=== PATIENT | female | born 1965 | race Caucasian/White ===

== ENCOUNTER 2016-11-23 12:01 | Inpatient (IN) | payer OTHER ==
[~2016-11-23] VITALS: Ht 165.1 cm; Wt 82.6 kg
[~2016-11-23 12:01] MED LIST: ADALAT CC30 MG PO; AGGRENOX 25 MG-1 CAP PO; AMOXICILLIN500 M1 PO; COUMADIN 2.5 M2.5 MG PO; COUMADIN 5 MG TA5 MG PO; ENDOCET 325 MG-1 TA1 PO; FLEXERIL 5MG TAB5 MG PO; LISINOPRIL20 MG PO; PERCOCET 325 MG1 TAB PO; SAVELLA 50MG50 MG PO; SIMVASTATIN40 MG PO; TOPROL XL 25MG25 MG PO; TYLENOL500 MG PO; VITAMIN D5000 I1 PO; ZANAFLEX2 M1 PO; ZANAFLEX2 MG PO; ZANAFLEX4 MG PO; ZOFRAN ODT4 MG PO; ZOFRAN ODT4 MG SL
--- NOTE | 2016-11-23 12:18 | NUR ---
PT TO ED C/O URI S/S X 1 WEEK. HAS BEEN TAKING OTC MEDS WITH NO RELIEF. STATES THIS AM WOKE UP FEELING SOB. AFEBRILE. RA SATS 92%. C/O NON PRODUCTIVE COUGH.
--- NOTE | 2016-11-23 12:20 | NUR ---
Informed waiting has been performed.
--- NOTE | 2016-11-23 14:00 | NUR ---
Informed waiting has been performed.
--- NOTE | 2016-11-23 15:30 | ED INFLUENZA/URI COMPLAINT ---
History of Present Illness General Chief Complaint: Upper Respiratory Sx/Fever Stated Complaint: URI Source: patient Exam Limitations: no limitations Allergies Coded Allergies: Sulfa (Sulfonamide Antibiotics) (N/V 01/06/16) Reconcile Medications Atorvastatin Calcium 10 MG TABLET 1 TAB PO QPM CHOLESTEROL (Reported) Bupropion HCl (Bupropion XL) 300 MG TAB.ER.24H 1 TAB PO QAM ANXIETY/DEPRESSION (Reported) Dipyridamole W/ Aspirin (Aggrenox 25 MG-200 MG Capsule) 25 MG-200 MG CPMP.12HR 1 CAP PO BID BLOOD THINNER (Reported) Escitalopram Oxalate (Lexapro) 10 MG TABLET 1 TAB PO QPM ANXIETY (Reported) Hydroxychloroquine Sulfate 200 MG TABLET 1 TAB PO BID RA (Reported) Ibuprofen/Famotidine (Duexis 800-26.6 MG Tablet) 800 MG-26.6 MG TABLET 1 TAB PO TID PRN RA (Reported) Lisinopril 20 MG TABLET 1 TAB PO QAM BP (Reported) Lorazepam 0.5 MG TABLET 1 TAB PO DAILY PRN ANXIETY (Reported) Metoprolol Succinate 25 MG TAB 1 TAB PO QAM HEART (Reported) Nifedipine (Nifedipine ER) 30 MG TABLET.ER 1 TAB PO QAM REYNAUDS (Reported) Prednisone 5 MG TABLET 1 TAB PO QAM RA (Reported) Pregabalin (Lyrica) 75 MG CAPSULE 1 CAP PO BID FIBROMYALGIA (Reported) Warfarin Sodium 5 MG TABLET 1 TAB PO Wednesday BLOOD THINNER ( Reported) Warfarin Sodium (Coumadin) 2.5 MG TABLET 1 TAB PO AD BLOOD THINNER (Reported) Triage Note: PT TO ED C/O URI S/S X 1 WEEK. HAS BEEN TAKING OTC MEDS WITH NO RELIEF. STATES THIS AM WOKE UP FEELING SOB. AFEBRILE. RA SATS 92%. C/O NON PRODUCTIVE COUGH. Triage Nurses Notes Reviewed? yes Onset: Gradual Duration: day(s): (5) Timing: recent history Severity: moderate HPI: This is a 51-year-old female with history of rheumatoid arthritis on chronic prednisone who presents to the ER with congestion, headaches since last . Last night she was unable to breathe properly or sleep. Reports worsening symptoms, worst last night. Cough is dry, feels sputum is thick. She tried using vaporizer treatments at home with a humidifier without any relief. She also increased her daily prednisone from 5 mg to 15 twice a day to think that it might help her. Denies eating or drinking properly over the weekend and feels very weak and tired. Subjective chills and sweats. Today she called her primary care doctor who advised to come to the ER for evaluation. (MARLENA KEANE MD) Vital Signs & Intake/Output Vital Signs & Intake/Output Vital Signs Date Time Temp Pulse Resp B/P Pulse O2 O2 Flow FiO2 Ox Delivery Rate 11/25 0852 93 Nasal 4.0L Cannula 11/25 0630 97.8 91 20 120/78 92 Nasal 4.0L Cannula 11/25 0000 94 Nasal 4.0L Cannula 11/24 2138 98.6 100 20 114/80 94 11/24 2042 94 Nasal 4.0L Cannula 11/24 1658 93 Nasal 4.0L Cannula 11/24 1600 91 Nasal 3.5L Cannula 11/24 1539 Nasal 3.0L Cannula 11/24 1530 98.9 11/24 1525 100.0 98 20 108/80 92 Nasal 2.0L Cannula 11/24 1420 100.0 ED Intake and Output 11/25 0000 11/24 1200 Intake Total 1558 700 Output Total 300 Balance 1558 400 Intake, IV 658 600 Intake, Oral 900 100 Output, Urine 300 Past History Travel History Traveled to [place] past 21 day No Medical History Any Pertinent Medical History? see below for history Neurological: CVA Cardiovascular: hypertension Respiratory: RHEUMATIC HEART DISEASE Musculoskeletal: fibromyalgia, rheumatoid arthritis Psychiatric: anxiety History of MRSA: No History of VRE: No History of CDIFF: No Surgical History Surgical History: non-contributory Psychosocial History Who do you live with Spouse Services at Home None What is your primary language Belgian Tobacco Use: Quit >30 days ago ETOH Use: denies use Illicit Drug Use: denies illicit drug use Family History Family History, If Any: MOTHER FH: CAD (coronary artery disease) FH: hypertension Hx Contributory? No (MARLENA KEANE MD) Review of Systems Review of Systems Constitutional: Reports: chills, malaise, weakness. Denies: fever. EENTM: Reports: no symptoms. Respiratory: Reports: cough, short of breath. Denies: sputum production. Cardiovascular: Denies: chest pain, palpitations. GI: Denies: abdominal pain, nausea, vomiting. Genitourinary: Reports: no symptoms. Musculoskeletal: Reports: no symptoms. Skin: Reports: no symptoms. Neurological/Psychological: Reports: no symptoms. Hematologic/Endocrine: Denies: bruising, bleeding. Immunologic/Allergic: Denies: splenectomy. All Other Systems: Reviewed and Negative (MARLENA KEANE MD) Physical Exam Physical Exam General Appearance: alert, awake, anxious, mild distress Head: atraumatic, normal appearance Eyes: Bilateral: normal appearance, PERRL, EOMI. Ears, Nose, Throat: normal ENT inspection, hearing grossly normal, DRY MUCUS MEMBRANES Neck: normal inspection, supple, full range of motion Respiratory: decreased breath sounds, crackles (LEFT BASE) Cardiovascular: regular rate/rhythm Peripheral Pulses: 2+ radial (R), 2+ radial (L) Gastrointestinal: normal bowel sounds, soft, non-tender Extremities: normal inspection, normal capillary refill, normal range of motion, no edema Neurologic/Psych: no motor/sensory deficits, awake, alert, oriented x 3 Skin: intact, normal color, warm/dry Core Measures Severe Sepsis Present: No Septic Shock Present: No (MARLENA KEANE MD) ED Sepsis Exam Date of Focused Sepsis Exam: 11/23/16 Time of Focused Sepsis Exam: 1746 Sepsis Cardiac Exam: Regular Rate/Rhythm Sepsis Resp Exam: Rales Sepsis Cap Refill Exam: <2 Sec Sepsis Peripheral Pulse Exam: Bounding Sepsis Peripheral Pulse Location: Radial Sepsis Skin Color Exam: Normal for Ethnicity Skin Temp/Moisture Exam: Warm/Dry (MARLENA KEANE MD) Progress Differential Diagnosis: influenza, pneumonia, URI Diagnostic Imaging: Viewed by Me: Radiology Read, CT Scan. Discussed w/RAD: Radiology Read, CT Scan. Radiology Impression: PATIENT: JAISON VELASQUEZ PRESENT AGE: 51 PATIENT ACCOUNT NO: [id number] : 64 LOCATION: [facility] [place] ORDERING PHYSICIAN: MARLENA KEANE MD SERVICE DATE: 11/23/16-1721 EXAM TYPE: CAT - CT CHEST WO IV CONTRAST EXAMINATION: CT CHEST WITHOUT CONTRAST CLINICAL INFORMATION : Dyspnea. Cough. Multilevel pneumonia. COMPARISON: Chest x-ray 11/23/2016. Chest x-ray 05/25/2014 TECHNIQUE: Multidetector volumetric CT imaging of the chest was done. Axial MIP volume rendering provided. Sagittal and coronal reformatted images were obtained. DLP: 450.39 mGy-cm FINDINGS: Pleura/LUNGS: There is bilateral airspace disease with air bronchograms abnormality affects the mid lung zones bilaterally in a fairly symmetric pattern. The peripheral subpleural lung is relatively spared except for lung bases at the dependent lung. This is associated with bilateral pleural effusions which are moderate in volume. This would suggest a cardiogenic etiology more likely than infectious/ inflammatory. ARDS is unlikely. MEDIASTINUM: There is mediastinal lymphadenopathy. Enlarged lymph node at the damari in the pretracheal retrovascular space measuring 1.8 cm with smaller shotty lymph nodes in the same space and AP window. 1.9 cm lymph node in the subcarina. There is coronary artery calcifications present. AXILLA: No lymphadenopathy. UPPER ABDOMEN: 4 mm nonobstructive renal stone in the upper pole of left kidney. OSSEOUS STRUCTURES: Unremarkable. IMPRESSION: Bilateral airspace disease with air bronchograms mainly affecting the middle lung zones. Associated bilateral pleural effusions. Differential diagnosis would include congestive heart failure versus inflammatory /infectious etiology and unlikely ARDS. Mediastinal lymphadenopathy which can be reactive. DICTATED BY: JONNIE NG MD DATE/TIME DICTATED:11/23/161800 LOSS PREVENTION SPECIALIST:DESTINY DATE/TIME TRANSCRIBED:11/23/161800 CONFIDENTIAL, DO NOT COPY WITHOUT APPROPRIATE AUTHORIZATION. <Electronically signed in Other Vendor System> SIGNED BY: JONNIE NG MD 11/23/161813 CXR Impression: PATIENT: JAISON VELASQUEZ PRESENT AGE: 51 PATIENT ACCOUNT NO: [id number] : 63 LOCATION: [facility] [place] ORDERING PHYSICIAN: MARLENA KEANE MD SERVICE DATE: 11/23/16 EXAM TYPE: RAD - XRY-CHEST XRAY , PA AND LATERAL EXAMINATION: XR CHEST CLINICAL INFORMATION: 51-year-old female with cough and shortness of breath. COMPARISON: Chest x-ray on 05/25/2014. TECHNIQUE: AP semierect and lateral views of the chest were obtained. FINDINGS: This exam is limited by the patient's body habitus. Patchy airspace disease involves the lingula, and the right lower lobe consistent with multilobar pneumonia. In addition, there is a small left pleural effusion. The heart is normal in size. The regional skeletal structures are unremarkable. IMPRESSION: Multilobar pneumonia, lingula of the left upper lobe and right lower lobe. Small left pleural effusion. DICTATED BY: LANDON ANGEL MD DATE/TIME DICTATED:1704 LOSS PREVENTION SPECIALIST:DESTINY DATE/TIME TRANSCRIBED:11/23/161704 CONFIDENTIAL, DO NOT COPY WITHOUT APPROPRIATE AUTHORIZATION. <Electronically signed in Other Vendor System> SIGNED BY: LANDON ANGEL MD 11/23/16 1714 Pre-Hospital EKG: none Initial ED EKG: none (LAKHWINDER CROOKS,MARLENA) Plan of Care: Orders Procedure Date/time Status PARTIAL THROMBOPLASTIN TIME 11/25 1825 Active PROTHROMBIN TIME 11/25 0600 Complete WESTERGREN SED RATE 11/25 0600 Complete CBC WITHOUT DIFFERENTIAL 11/25 06 Complete PARTIAL THROMBOPLASTIN TIME 11/25 0530 Complete Heparin Drip- General Anticoag 11/25 0216 Active PHYSICIAN CONSULT 11/25 UNK Active PARTIAL THROMBOPLASTIN TIME 11/24 2315 Complete RT: Evaluation 11/24 1126 Active C-REACTIVE PROTEIN 11/24 0600 Complete THERAPIST ORDERS 11/24 UNK Complete OXYGEN SETUP (GEN) 11/24 UNK Complete Lab Add-on Test 11/24 UNK Active Vital Signs 11/24 UNK Active PHYSICIAN CONSULT 11/24 UNK Active Current Medications Sig/Lico Start time Last Medication Dose Stop Time Status Admin Warfarin Sodium 5 MG COUMADIN 1700 ONE 11/24 1700 CAN (Coumadin) 11/24 1701 Laboratory Tests 11/25/16 0545: PT 20.9 H, INR 2.00 H 11/25/16 0545: APTT 80 H, CBC w Diff NO MAN DIFF REQ, RBC 3.09 L, MCV 94.1, MCH 31.3 H, RDW 15.0 H, MPV 7.5, Gran % 84.0 H, Lymphocytes % 8.6 L, Monocytes % 7.0, Eosinophils % 0.2, Basophils % 0.2, Absolute Granulocytes 9.0 H, Absolute Lymphocytes 0.9 L, Absolute Monocytes 0.7 H, Absolute Eosinophils 0, Absolute Basophils 0, PUBS MCHC 33.3, ESR Westergren 123 H 11/24/16 2250: APTT 45 H Departure Departure Disposition: STILL A PATIENT Condition: Stable Clinical Impression Primary Impression: Hypotension Secondary Impressions: Pneumonia Referrals: FREDIS CHU APRN (PCP/Family) Departure Forms: Customer Survey General Discharge Information Admission Note Documentation of Exam: Documentation of any treatments & extenuating circumstances including Concerns Regarding Discharge (functional status, medication knowledge or non-compliance, living conditions, etc.) that warrant an admission rather than observation: [ MONITOR I/O, TRC/NEBS, TREND BNP, EVALUATION, F/U CULTURES] (LAKHWINDER CROOKS,MARLENA) Admission Note Spoke With: DARREL HERNANDEZ MD Documentation of Exam: Documentation of any treatments & extenuating circumstances including Concerns Regarding Discharge (functional status, medication knowledge or non-compliance, living conditions, etc.) that warrant an admission rather than observation: [IV ABX, PULM CONSULT, ID CONSULT] (GINA CROOKS,DEMETRIS Echavarria) 11/23 2126 URINE ROUT: Streptococcus pneumoniae Antigen (M - ORD 11/23 2101 LOWER RESP: Respiratory Culture - ORD 11/23 2101 LOWER RESP: Gram Stain - ORD 11/23 163 BLOOD: Blood Culture - RECD 11/23 162 BLOOD: Blood Culture - RECD Diagnostic Imaging: Viewed by Me: Radiology Read, CT Scan. Discussed w/RAD: Radiology Read, CT Scan. Radiology Impression: PATIENT: JAISON VELASQUEZ PRESENT AGE: 51 PATIENT ACCOUNT NO: [id number] : 63 LOCATION: [facility] [place] ORDERING PHYSICIAN: MARLENA KEANE MD SERVICE DATE: 11/23/16 EXAM TYPE: CAT - CT CHEST WO IV CONTRAST EXAMINATION: CT CHEST WITHOUT CONTRAST CLINICAL INFORMATION : Dyspnea. Cough. Multilevel pneumonia. COMPARISON: Chest x-ray 11/23/2016. Chest x-ray 05/25/2014 TECHNIQUE: Multidetector volumetric CT imaging of the chest was done. Axial MIP volume rendering provided. Sagittal and coronal reformatted images were obtained. DLP: 450.39 mGy-cm FINDINGS: Pleura/LUNGS: There is bilateral airspace disease with air bronchograms abnormality affects the mid lung zones bilaterally in a fairly symmetric pattern. The peripheral subpleural lung is relatively spared except for lung bases at the dependent lung. This is associated with bilateral pleural effusions which are moderate in volume. This would suggest a cardiogenic etiology more likely than infectious/ inflammatory. ARDS is unlikely. MEDIASTINUM: There is mediastinal lymphadenopathy. Enlarged lymph node at the damari in the pretracheal retrovascular space measuring 1.8 cm with smaller shotty lymph nodes in the same space and AP window. 1.9 cm lymph node in the subcarina. There is coronary artery calcifications present. AXILLA: No lymphadenopathy. UPPER ABDOMEN: 4 mm nonobstructive renal stone in the upper pole of left kidney. OSSEOUS STRUCTURES: Unremarkable. IMPRESSION: Bilateral airspace disease with air bronchograms mainly affecting the middle lung zones. Associated bilateral pleural effusions. Differential diagnosis would include congestive heart failure versus inflammatory /infectious etiology and unlikely ARDS. Mediastinal lymphadenopathy which can be reactive. DICTATED BY: JONNIE NG MD DATE/TIME DICTATED:11/23/161800 LOSS PREVENTION SPECIALIST:DESTINY DATE/TIME TRANSCRIBED:11/23/161800 CONFIDENTIAL, DO NOT COPY WITHOUT APPROPRIATE AUTHORIZATION. <Electronically signed in Other Vendor System> SIGNED BY: JONNIE NG MD 11/23/161813 CXR Impression: PATIENT: JAISON VELASQUEZ PRESENT AGE: 51 PATIENT ACCOUNT NO: [id number] : 63 LOCATION: [facility] ORDERING PHYSICIAN: MARLENA KEANE MD SERVICE DATE: 11/23/16 EXAM TYPE: RAD - XRY-CHEST XRAY , PA AND LATERAL EXAMINATION: XR CHEST CLINICAL INFORMATION: 51-year-old female with cough and shortness of breath. COMPARISON: Chest x-ray on 05/25/2014. TECHNIQUE: AP semierect and lateral views of the chest were obtained. FINDINGS: This exam is limited by the patient's body habitus. Patchy airspace disease involves the lingula, and the right lower lobe consistent with multilobar pneumonia. In addition, there is a small left pleural effusion. The heart is normal in size. The regional skeletal structures are unremarkable. IMPRESSION: Multilobar pneumonia, lingula of the left upper lobe and right lower lobe. Small left pleural effusion. DICTATED BY: LANDON ANGEL MD DATE/TIME DICTATED:1704 LOSS PREVENTION SPECIALIST:DESTINY DATE/TIME TRANSCRIBED:11/23/161704 CONFIDENTIAL, DO NOT COPY WITHOUT APPROPRIATE AUTHORIZATION. <Electronically signed in Other Vendor System> SIGNED BY: LANDON ANGEL MD 11/23/161713 Pre-Hospital EKG: none Initial ED EKG: none (LAKHWINDER CROOKS,MARLENA) Departure Departure Disposition: STILL A PATIENT Condition: Stable Clinical Impression Primary Impression: Hypotension Secondary Impressions: Pneumonia Referrals: FREDIS CHU APRN (PCP/Family) Departure Forms: Customer Survey General Discharge Information (MARLENA KEANE MD) Admission Note Spoke With: DAVID CROOKS,DARREL Benjamin Documentation of Exam: Documentation of any treatments & extenuating circumstances including Concerns Regarding Discharge (functional status, medication knowledge or non-compliance, living conditions, etc.) that warrant an admission rather than observation: [IV ABX, PULM CONSULT, ID CONSULT] (GINA CROOKS,DEMETRIS Echavarria)
[2016-11-23] MEDS ORDERED: LISINOPRIL20 M1 PO (15:56)
[2016-11-23] MEDS ORDERED: AGGRENOX 25 MG1 EACH PO (15:56)
[2016-11-23] MEDS ORDERED: ATORVASTATIN CA10 M1 PO (15:57)
[2016-11-23] MEDS ORDERED: METOPROLOL SUCC25 M1 PO (15:57)
[2016-11-23] MEDS ORDERED: PREDNISONE5 M1 PO (15:58)
[2016-11-23] MEDS ORDERED: NIFEDIPINE ER30 M1 PO (15:58)
[2016-11-23] MEDS ORDERED: WARFARIN SODIUM5 M1 PO (15:59)
[2016-11-23] MEDS ORDERED: HYDROXYCHLOROQ200 M2 PO (15:59)
[2016-11-23] MEDS ORDERED: COUMADIN2.5 M1 PO (16:00)
[2016-11-23] MEDS ORDERED: LYRICA75 M1 PO (16:00)
[2016-11-23] MEDS ORDERED: DUEXIS 800-26.1 EACH PO (16:01)
[2016-11-23] MEDS ORDERED: BUPROPION XL300 M1 PO (16:01)
[2016-11-23] MEDS ORDERED: LEXAPRO20 M1 PO (16:02)
[2016-11-23] MEDS ORDERED: LORAZEPAM0.5 M1 PO (16:02)
[2016-11-23 16:31] LABS: ABSOLUTE BASOPHIL COUNT 0 /CUMM (0.0-0.2); ABSOLUTE EOSINOPHIL COUNT 0 /CUMM (0.0-0.7); ABSOLUTE GRANULOCYTE CT 10.2 /CUMM (1.4-6.5); ABSOLUTE LYMPH COUNT 0.5 /CUMM (1.2-3.4); ABSOLUTE MONOCYTE COUNT 0.6 /CUMM (0.10-0.60); BASOPHIL % 0.1 % (0.0-2.0); EOSINOPHIL % 0 % (0-5); HEMATOCRIT 33.9 % (37-47); MEAN CORPUSCULAR HGB CONC 32.8 G/DL (33.0-37.0); MEAN CORPUSCULAR VOLUME 94.3 FL (81.0-99.0); MEAN PLATELET VOLUME 7.3 FL (7.4-10.4); PLATELET COUNT 295 /CUMM (130-400); RBC DISTRIBUTION WIDTH 14.8 % (11.5-14.5); RED BLOOD CELL CT 3.59 /CUMM (4.20-5.40); WHITE BLOOD CELL COUNT 11.3 /CUMM (4.8-10.8)
[2016-11-23 16:32] LABS: GRANULOCYTE % 89.7 % (42.2-75.2)
--- NOTE | 2016-11-23 17:14 | RADIOLOGY REPORT ---
EXAMINATION: XR CHEST CLINICAL INFORMATION: 51-year-old female with cough and shortness of breath. COMPARISON: Chest x-ray on 05/25/2014. TECHNIQUE: AP semierect and lateral views of the chest were obtained. FINDINGS: This exam is limited by the patient's body habitus. Patchy airspace disease involves the lingula, and the right lower lobe consistent with multilobar pneumonia. In addition, there is a small left pleural effusion. The heart is normal in size. The regional skeletal structures are unremarkable. IMPRESSION: Multilobar pneumonia, lingula of the left upper lobe and right lower lobe. Small left pleural effusion.
--- NOTE | 2016-11-23 18:14 | CT SCAN REPORT ---
EXAMINATION: CT CHEST WITHOUT CONTRAST CLINICAL INFORMATION: Dyspnea. Cough. Multilevel pneumonia. COMPARISON: Chest x-ray 11/23/2016. Chest x-ray 05/25/2014 TECHNIQUE: Multidetector volumetric CT imaging of the chest was done. Axial MIP volume rendering provided. Sagittal and coronal reformatted images were obtained. DLP: 450.39 mGy-cm FINDINGS: Pleura/LUNGS: There is bilateral airspace disease with air bronchograms abnormality affects the mid lung zones bilaterally in a fairly symmetric pattern. The peripheral subpleural lung is relatively spared except for lung bases at the dependent lung. This is associated with bilateral pleural effusions which are moderate in volume. This would suggest a cardiogenic etiology more likely than infectious/inflammatory. ARDS is unlikely. MEDIASTINUM: There is mediastinal lymphadenopathy. Enlarged lymph node at the damari in the pretracheal retrovascular space measuring 1.8 cm with smaller shotty lymph nodes in the same space and AP window. 1.9 cm lymph node in the subcarina. There is coronary artery calcifications present. AXILLA: No lymphadenopathy. UPPER ABDOMEN: 4 mm nonobstructive renal stone in the upper pole of left kidney. OSSEOUS STRUCTURES: Unremarkable. IMPRESSION: Bilateral airspace disease with air bronchograms mainly affecting the middle lung zones. Associated bilateral pleural effusions. Differential diagnosis would include congestive heart failure versus inflammatory /infectious etiology and unlikely ARDS. Mediastinal lymphadenopathy which can be reactive.
--- NOTE | 2016-11-23 18:23 | NUR ---
PT 02 SAT DROPPED TO 89 90% PLACED ON 02 2L VIA NC SAT INCREASED TO 94% IV ABX INFUSING DIRECTED PT HAD ONE NEB TREATMENT RESP. IN ROOM FOR ABG
--- NOTE | 2016-11-23 19:14 | NUR ---
TROYO INFUSING AT THIS TIME HOUSE STAFF IN ROOM
--- NOTE | 2016-11-23 19:40 | History & Physical ---
GERA COLLINS MD 11/23/161938: General Information and HPI MD Statement: I have seen and personally examined JAISON VELASQUEZ and documented this H&P. The patient is a 51 year old F who presented with a patient stated chief complaint of congestions and feeling unwell. Source of Information: patient, family, old records Exam Limitations: poor historian History of Present Illness: Ms. 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 Patient reports that beginning last week, she started to feel lethargic and noticed she was getting sick. Symptoms at that time included fever to 101, chills, right ear fullness, nasal congestion, chest congestion, dry cough not productive of sputum, decreased PO intake and hip pain. Patient reports that because of these issues, she increased her home prednisone of 5 mg to 15 mg twice a day in hopes of calming down the "inflammation" in her chest. She currently denies palpiations, chest pain, sputum production, wheezing, abdominal pain, nausea, vomiting or weakness. Social history is positive for prior tobacco abuse, though she currently does not smoke, as well as no history of alcohol or drug use. She lives at home with her . She follows with Dr. Cotter as her program engineer and Dr. Lira as her electrical helper. Allergies/Medications Allergies: Coded Allergies: Sulfa (Sulfonamide Antibiotics) (N/V 01/06/16) Home Med list Atorvastatin Calcium 10 MG TABLET 1 TAB PO QPM CHOLESTEROL (Reported) Bupropion HCl (Bupropion XL) 300 MG TAB.ER.24H 1 TAB PO QAM ANXIETY/DEPRESSION (Reported) Dipyridamole W/ Aspirin (Aggrenox 25 MG-200 MG Capsule) 25 MG-200 MG CPMP.12HR 1 CAP PO BID BLOOD THINNER (Reported) Escitalopram Oxalate (Lexapro) 10 MG TABLET 1 TAB PO QPM ANXIETY (Reported) Hydroxychloroquine Sulfate 200 MG TABLET 1 TAB PO BID RA (Reported) Ibuprofen/Famotidine (Duexis 800-26.6 MG Tablet) 800 MG-26.6 MG TABLET 1 TAB PO TID PRN RA (Reported) Lisinopril 20 MG TABLET 1 TAB PO QAM BP (Reported) Lorazepam 0.5 MG TABLET 1 TAB PO DAILY PRN ANXIETY (Reported) Metoprolol Succinate 25 MG TAB 1 TAB PO QAM HEART (Reported) Nifedipine (Nifedipine ER) 30 MG TABLET.ER 1 TAB PO QAM REYNAUDS (Reported) Prednisone 5 MG TABLET 1 TAB PO QAM RA (Reported) Pregabalin (Lyrica) 75 MG CAPSULE 1 CAP PO BID FIBROMYALGIA (Reported) Warfarin Sodium 5 MG TABLET 1 TAB PO Wednesday BLOOD THINNER ( Reported) Warfarin Sodium (Coumadin) 2.5 MG TABLET 1 TAB PO AD BLOOD THINNER (Reported) Compliance With Home Meds: GOOD Past History Travel History Traveled to [place] past 21 day No Medical History Neurological: CVA Cardiovascular: hypertension Respiratory: RHEUMATIC HEART DISEASE Musculoskeletal: fibromyalgia, rheumatoid arthritis Psychiatric: anxiety History of MRSA: No History of VRE: No History of CDIFF: No Surgical History Surgical History: non-contributory Past Family/Social History Family History Relations & Conditions if any MOTHER FH: CAD (coronary artery disease) FH: hypertension Psychosocial History Where do you live? Home Who Do You Live With? spouse Services at Home: None Primary Language: Austrian Smoking Status: Former Smoker ETOH Use: denies use Illicit Drug Use: denies illicit drug use Functional Ability ADLs Independent: dressing, eating, toileting, bathing. Ambulation: independent IADLs Independent: shopping, housework, finances, food prep, telephone, transportation , medication admin. Review of Systems Review of Systems Constitutional: Reports: chills, fever, malaise. Denies: diaphoresis, unexplained weight loss. EENTM: Reports: nasal congestion. Denies: blurred vision, visual changes, throat pain. Cardiovascular: Denies: chest pain, palpitations, syncope. Respiratory: Reports: cough, short of breath. Denies: orthopnea, sputum production, stridor, wheezing. GI: Denies: abdominal pain, bloating, constipation, distention, nausea, vomiting. Genitourinary: Denies: dysuria, hematuria. Musculoskeletal: Reports: joint pain (Bilateral knees, hands, elbows). Skin: Denies: change in skin color, change in hair/nails, lesions. Neurological/Psychological: Denies: confusion, headache, paresthesia, tremors. Hematologic/Endocrine: Denies: bruising, bleeding. Immunologic/Allergic: Denies: splenectomy. All Other Systems: Reviewed and Negative Exam & Diagnostic Data Last 24 Hrs of Vital Signs/I&O Vital Signs Date Time Temp Pulse Resp B/P Pulse O2 O2 Flow FiO2 Ox Delivery Rate 11/23 1728 98.8 88 18 104/57 92 Room Air 11/23 1626 95 11/23 1616 91 11/23 1216 98.9 99 20 93/60 87 Room Air Intake & Output 11/23 1600 11/23 0800 11/23 0000 Intake Total Output Total Balance Patient 201 lb Weight Physical Exam General Appearance Alert, Oriented X3, Cooperative, No Acute Distress Skin No Rashes, No Significant Lesion HEENT Atraumatic, PERRLA, Mucous Membr. moist/pink Neck Supple, No thryomegaly Cardiovascular Regular Rate, Normal S1, Normal S2, Grade 3 systolic murmur noted. Lungs Decreased breath sounds bilateral lung verduzco. Noted rhonchi left lung base. Abdomen Normal Bowel Sounds, Soft, No Tenderness, No Masses, Obese Neurological Normal Speech, Normal Tone, Sensation Intact Extremities No Clubbing, No Cyanosis, No Tenderness/Swelling Vascular Pulses Symmetrical Last 24 Hrs of Labs/Michael: Laboratory Tests 11/23/16 1849: Urine Color YEL, Urine Clarity CLEAR, Urine pH 6.5, Ur Specific [place] <= 1.005 , Urine Protein NEG, Urine Ketones NEG, Urine Nitrite NEG, Urine Bilirubin NEG, Urine Urobilinogen 0.2, Ur Leukocyte Esterase NEG, Ur Microscopic EXAM NOT REQUIRED, Urine Hemoglobin NEG, Urine Glucose NEG 11/23/16 1835: pH 7.47 H, pCO2 28 L, pO2 64 L, HCO3 20 L, ABG O2 Sat (Measured) 91.0 L, P- 50 (Temp Corrected) N, Carboxyhemoglobin 0.3 L, O2 Concentration % 2L, Temperature 98.8, O2 Delivery Method NC, Phlebotomy Draw Site RIGHT BRACHIAL 11/23/16 1624: Anion Gap 13, Estimated GFR 58 L, BUN/Creatinine Ratio 16.0, Glucose 133 H, Lactic Acid 1.5, Calcium 9.7, Total Bilirubin 0.8, AST 24, ALT 34, Alkaline Phosphatase 72, Total Protein 7.2, Albumin 4.0, Globulin 3.2, Albumin/Globulin Ratio 1.3, CBC w Diff NO MAN DIFF REQ, RBC 3.59 L, MCV 94.3, MCH 31.0, RDW 14.8 H, MPV 7.3 L, Gran % 89.7 H, Lymphocytes % 4.7 L, Monocytes % 5.5, Eosinophils % 0, Basophils % 0.1, Absolute Granulocytes 10.2 H, Absolute Lymphocytes 0.5 L, Absolute Monocytes 0.6, Absolute Eosinophils 0, Absolute Basophils 0, PUBS MCHC 32.8 L Microbiology 11/23 1635 BLOOD: Blood Culture - RECD 11/23 1620 BLOOD: Blood Culture - RECD Diagnostic Data EKG Results Sinus tachycardia, HR 100, RBBB, QTC 501 CXR Results EXAMINATION: XR CHEST CLINICAL INFORMATION: 51-year-old female with cough and shortness of breath. COMPARISON: Chest x-ray on 05/25/2014. TECHNIQUE: AP semierect and lateral views of the chest were obtained. FINDINGS: This exam is limited by the patient's body habitus. Patchy airspace disease involves the lingula, and the right lower lobe consistent with multilobar pneumonia. In addition, there is a small left pleural effusion. The heart is normal in size. The regional skeletal structures are unremarkable. IMPRESSION: Multilobar pneumonia, lingula of the left upper lobe and right lower lobe. Small left pleural effusion. Other Results EXAMINATION: CT CHEST WITHOUT CONTRAST CLINICAL INFORMATION: Dyspnea. Cough. Multilevel pneumonia. COMPARISON: Chest x-ray 11/23/2016. Chest x-ray 05/25/2014 TECHNIQUE: Multidetector volumetric CT imaging of the chest was done. Axial MIP volume rendering provided. Sagittal and coronal reformatted images were obtained. DLP: 450.39 mGy-cm FINDINGS: Pleura/LUNGS: There is bilateral airspace disease with air bronchograms abnormality affects the mid lung zones bilaterally in a fairly symmetric pattern. The peripheral subpleural lung is relatively spared except for lung bases at the dependent lung. This is associated with bilateral pleural effusions which are moderate in volume. This would suggest a cardiogenic etiology more likely than infectious/inflammatory. ARDS is unlikely. MEDIASTINUM: There is mediastinal lymphadenopathy. Enlarged lymph node at the damari in the pretracheal retrovascular space measuring 1.8 cm with smaller shotty lymph nodes in the same space and AP window. 1.9 cm lymph node in the subcarina. There is coronary artery calcifications present. AXILLA: No lymphadenopathy. UPPER ABDOMEN: 4 mm nonobstructive renal stone in the upper pole of left kidney. OSSEOUS STRUCTURES: Unremarkable. IMPRESSION: Bilateral airspace disease with air bronchograms mainly affecting the middle lung zones. Associated bilateral pleural effusions. Differential diagnosis would include congestive heart failure versus inflammatory /infectious etiology and unlikely ARDS. Mediastinal lymphadenopathy which can be reactive. Assessment/Plan Assessment: Ms. 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 Associated symptoms include fever to 101, chills, lethargy, nasal congestion, chest congestion, shortness of breath, non- productive cough and decreased oral intake. In the ED: Vital signs showed T 98.9, HR 99, RR 20, BP 93/60 and O2 saturation of 87% on room air. Labs showed leukocytosis to 11.3, normocytic anemia to 11.1/ 33.9, Plt 295, granulocytosis to 89.7, normal BEP, lactic acid 1.5, and normal UA. Blood gas was done and showed pH 7.47, pCO2 28, pO2 64 and HCO3 20. CXR was suggestive of multilobar PNA with small left pleural effusion. Chest CTA showed bilateral airspace disease with air bronchograms mainly affecting the middle lung zones. Associated bilateral pleural effusions. Unlikely ARDS. Patient was admitted to the general medicine floor and the following is the management: 1. Acute hypoxic respiratory failure * DDx includes community acquired PNA, heart failure, inflammatory/ rheumatological etiology * Patient given ceftraixone, azithro and vancomycin in the ED * We will start patient on doxycycline (prolonged QTC so will not order azithromycin) * Echocardiogram to monitor for heart failure * High dose steroids 100 gm IV x 1 for possible inflammatory component * Follow up blood and LRC, rapid flu negative * Monitor for fever, leukocytosis likely 2/2 chronic steroid use * Continue to provide supplemental O2 as needed, incentive spirometer, TRC nebs * Continue mucinex * Continue IVF with NS at 100 cc/h for borderline low BP, hold antihypertensives for now 2. HTN, Rheumatic hert disease, prior CVA x 2 * Continue warfarin 5 mg PO daily, monitor INR daily * Aggrenox 1 cap PO BID * Lipitor 10 mg PO QPM 3. Mental health * Ativan 0.5 mg PO PRN anxiety * Lexapro 10 mg PO QPM 4. RA, fibromyalgia * Continue plaquenil 200 mg PO BID * Continue lyrica 75 mg PO BID FULL CODE DVTP: Lovenox As Ranked By This Provider Problem List: 1. Pneumonia Core Measures/Miscellaneous Acute Coronary Syndrome ACS Diagnosis: No Cerebrovascular Accident CVA/TIA Diagnosis: No Congestive Heart Failure CHF Diagnosis: No Venous Thromboembolism VTE Risk Factors: Age > 40, Obesity VTE Prophylaxis Ordered Inpt: Pharm- Lovenox No Mech VTE prophylaxis d/t: No contraindications No VTE Pharm Prophylaxis d/t: No contraindications VTE Diagnosis: No VTE Type: NONE VTE Confirmed by (Test): NONE Severe Sepsis Severe Sepsis Present: No Septic Shock Septic Shock Present: No Miscellaneous Documentation Attending Case Discussed With: DAVID CROOKS,DARREL Benjamin Primary Care Physician: FREDIS CHU APRN Patient sees these Specialists Dr. Lira- Cardiology Dr. Cotter- Rheumatology Level of Patient Care: General Medicine MARCELLE ACEVEDO 11/23/16 2030: Resident Review Statement Resident Statement: amended to note Other Findings: 51-year-old lady with past medical history of bicuspid artifact with regurgitation on Coumadin, 2 episodes of CVA, RA, nephrolithiasis, anxiety, Raynaud's phenomenon, hypertension came with chief complaint of feeling unwell, mild cough, fever of 101 episode, to suppress on exertion for about 5 days. Patient reported that she increase her prednisone from 5 to 30 mg couple of days however she was a still feeling weak and came to the hospital. Patient reports of congestion but not been able to produce sputum, decreased appetite, headache. Patient has chronic on and off diarrhea. Denies any sick contacts. Vital signs showed T 98.9, HR 99, RR 20, BP 93/60 and O2 saturation of 87% on room air. Labs showed leukocytosis to 11.3, normocytic anemia to 11.1/33.9, Plt 295, granulocytosis to 89.7, lactic acid 1.5, and normal UA. ABG pH 7.47, pCO2 28, pO2 64 and HCO3 20. CXR was suggestive of multilobar PNA with small left pleural effusion. Chest CTA showed bilateral airspace disease with air bronchograms mainly affecting the middle lung zones. Associated bilateral pleural effusions. Unlikely ARDS. EKG showed HR 100, QTC 501, RBBB Assessment and plan #Respiratory failure possibly due to pneumonia -Put the patient on IV doxycycline because of the prolonged QTC -Negative for flu -Blood cultures, sputum cultures, urine Legionella and strep -100 mg of hydrocortisone was given already -Mucinex every 12 -If patient does not respond to antibiotics other causes such as RA associated lung disease should be invertigated -Tylenol for fever and pain -Recheck lactic acid 1 more time -Echocardiogram and check proBNP -IV hydration 75 mL per hour with normal saline #RA, Raynaud's phenomenon, fibromyalgia,HTN -Continue prednisone, continue Hyrdoxychrolocine, hold all antihypertensive medications, continue Wellbutrin and Lyrica #History of CVA and aortic regurgitation -Check INR now and give warfarin5 mg and check INR tomorrow and dose warfarin accordingly -Continue Aggrenox -Cardiology consult tomorrow DVT prophylaxis is warfarin and mechanical, full code, Tylenol for pain, heart healthy diet ARNELDANIELAnnika 11/24/16 0037: Attending MD Review Statement Attending Statement Attending MD Statement: examined this patient, discuss w/resident/PA/SIDE DOOR MAN, agreed w/resident/PA/SIDE DOOR MAN, reviewed EMR data (avail), reviewed images, amended to note Attending Assessment/Plan: CC: chest congestion, non-productive cough, PMH: RA on prednisone, cardioembolic CVA (AV vegetation) , HTN, nephrolithiasis, Raynaud's phenomena, fibromyalgia, anxiety Patient has been feeling lethargic since 1 week. She had nonproductive cough, right ear fullness, nasal congestion, chest congestion, decreased PO intake noticed progressively worsening since 1 week. Yesterday she had fever of 101 associated with chills. She increased her home prednisone of 5 mg to 15 mg for the symptoms. she denies palpiations, chest pain, wheezing, abdominal pain, nausea, vomiting or weakness, leg swelling, weight gain but she endorses hip pain. No sick contacts, no recent antibiotics use. Vitals: T max 98.9, HR 96, RR 20, BP at presentation 93/60, improved with IV fluids and stress dose of hydrocortisone to 104/57. Was saturating 87% on room air improved to 92 on 2 L. On exam: A O 3, mild respiratory distress, anxious, peripheral perfusion and pulses normal, no pedal edema, no lymphadenopathy, neck supple, no JVD, mucosa dry. CVS: S1-S2, systolic murmur radiating to carotids. RS: Bilateral mid zone crackles. Abdomen: Soft, NT, ND, bowel sounds present, no focal neurological deficit Labs: WBC 11.3 with neutrophils 89%, hemoglobin 11.1, anion gap 13, creatinine 1.0, lactate 1.5. ABG pH 7.47/PCO2 28/PO2 64/bicarbonate 24 on 2 L NC. CXR:Multilobar pneumonia, lingula of the left upper lobe and right lower lobe. Small left pleural effusion. CT chest without contrast: Bilateral airspace disease with air bronchograms mainly affecting the middle lung zones. Associated bilateral pleural effusions. Differential diagnosis would include congestive heart failure versus inflammatory /infectious etiology and unlikely ARDS. Mediastinal lymphadenopathy which can be reactive. A And P #1 acute hypoxic respiratory failure: Gradual worsening of symptoms with nonproductive cough, fever, chills and CT finding of bilateral airspace disease more suggestive of community-acquired pneumonia. A typical infections cannot be excluded. In setting of her underlying RA interstitial lung disease could be a possibility. Patient also has significant history of bicuspid aortic valve which may have progressed to aortic stenosis, heart failure cannot be excluded at this time but patient does not have any JVD elevation, no pedal edema. Continue treatment with ceftriaxone and doxycycline, nebulization treatment, continue O2 by nasal cannula, continue Mucinex by mouth. Check proBNP #2 hypotension: patient was transiently hypotensive in ER, responded to fluids, lactate 1.6, patient received a dose of hydrocortisone in ER. Continue NS at 75 mL per hour after second liter of bolus, check lactate after 3-4 hour. Patient has good peripheral perfusion and pulses. Watch for oxygenation given her underlying suspected aortic stenosis, if O2 demand increases, stop fluids. Hold all her antihypertensives including his nuclear, metoprolol, nifedipine. #3 suspected aortic stenosis: Patient has bicuspid aortic valve, she has 3/6 systolic murmur in the aortic area redictating to carotids. She had mild aortic stenosis on KESHIA done in 2013, please obtain 2-D echo in a.m., inform Dr. Lira she is known to him. #4 history of CVA, depression, fibromyalgia, RA: continue Aggrenox, warfarin, statin. Resume other home medications including bupropion, Lexapro, metoprolol, hydroxychloroquine, Lyrica continue her regular dose of prednisone in a.m. if blood pressure sustains normal overnight. #5 DVT prophylaxis patient currently on warfarin
--- NOTE | 2016-11-23 19:57 | NUR ---
PT DENIES ANY REQUESTS AT THIS TIME. AWAITING ADMISSION.
--- NOTE | 2016-11-23 20:46 | NUR ---
PT MEDICATED WITH COUMADIN AND WELLBUTRIN PER EMAR. PT HAD NOT TAKEN WELLBUTRIN TODAY.
--- NOTE | 2016-11-23 21:20 | NUR ---
REPORT GIVEN TO 2NA. TRANSPORT BOOKED.
[2016-11-23 23:53] VITALS: BP 105/72
--- NOTE | 2016-11-24 00:04 | NUR ---
PATIENT ARRIVED TO FLOOR AT 2130 VIA STRETHCER. PT AMBULATED INDEPENDELY. RESTING IN BED COMFORTABLY. DENIES ANY SOB OR PAIN AT THE MOMENT. PATIENT ON 2L OF O2. LUNG SOUNDS DIMINISHED. CALL [facility]OU[facility] IN REACH.
[2016-11-24 00:09] VITALS: BP 106/70
--- NOTE | 2016-11-24 00:39 | Admission Certification ---
Admission Certification Certification Statement - As attending physician, I certify that at the time of - admission, based on clinical presentation, severity of - symptoms, need for further diagnostic testing and - therapeutic interventions, and risk of adverse outcomes - without in-hospital treatment, in my clinical assessment, - this patient requires an acute hospital stay for a minimum - of two nights or longer. I have also considered psychsocial - factors such as support system, advanced age, financial - issues, cognitive issues, and failed out-patient treatments, - past re-admission history, safety of patient, and lack of - compliance as applicable. Specific rationale supporting this admission is: Pneumonia, acute hypoxic respiratory failure
[2016-11-24 02:31] VITALS: BP 110/70
[2016-11-24 04:15] VITALS: BP 110/70
--- NOTE | 2016-11-24 04:58 | PN- Housestaff ---
Subjective Follow-up For: acute hypoxic respiratory failure hypotensio suspected aortic stenosis Subjective: Patient reports slight improvement of her shortness of breath and cough however still gets winded when getting out of bed to go to the bathroom or when talking, patient also reports dizziness, denies palpitation, chest pain, leg swelling. reports having phlegm but has not been able to bring it up. reports a few episodes of explosive diarrhea (watery) since about 2 days ago before coming to the ED, reported this to the PCP in addition to her SOB, was advised to come to the ED. No antibiotic use in the recent past, but reports drinking more of liquids such as tea and soup in the past few days. Review of Systems Constitutional: Reports: weakness. Denies: chills, fever. EENTM: Reports: no symptoms. Cardiovascular: Denies: chest pain, palpitations, peripheral edema. Respiratory: Reports: cough, short of breath, sputum production. Gastrointestinal: Reports: diarrhea. Denies: abdominal pain, nausea, bloody stool, vomiting. Genitourinary: Reports: no symptoms. Musculoskeletal: Reports: no symptoms. Skin: Reports: no symptoms. Objective Last 24 Hrs of Vital Signs/I&O Vital Signs Date Time Temp Pulse Resp B/P Pulse O2 O2 Flow FiO2 Ox Delivery Rate 11/24 0751 98.0 90 20 118/80 96 Nasal 2.0L Cannula 11/24 0415 97.4 86 20 110/70 96 Nasal 2.0L Cannula 11/24 0231 97.4 90 20 110/70 94 Nasal 2.0L Cannula 11/24 0009 98.1 90 20 106/70 93 Nasal 2.0L Cannula 11/24 0000 Nasal 2.0L Cannula 11/23 2353 97.7 90 20 105/72 94 Nasal Cannula 11/23 2243 Nasal 2.0L Cannula 11/23 2056 98.1 86 18 106/63 95 Nasal 2.0L Cannula 11/23 1728 98.8 88 18 104/57 92 Room Air 11/23 1626 95 11/23 1616 91 11/23 1216 98.9 99 20 93/60 87 Room Air Intake & Output 11/24 1600 11/24 0800 11/24 0000 Intake Total 700 1370 Output Total 300 Balance 400 1370 Intake, IV 600 1250 Intake, Oral 100 120 Output, Urine 300 Patient 91.172 kg Weight Physical Exam General Appearance: Alert, Oriented X3, Cooperative, Mild Distress, respiratory distress Skin: No Rashes, No Breakdown, No Significant Lesion HEENT: Atraumatic, PERRLA, EOMI, dry mucous membrane Neck: Supple Cardiovascular: Regular Rate, Normal S1, Normal S2, 3/6 decrescendo systolic murmur best heard at the aortic and pulmonic areas. Lungs: end expiratory wheezing on the mid lungs on both sides Abdomen: Normal Bowel Sounds, Soft, No Tenderness, No Hepatospenomegaly Neurological: Normal Speech, Strength at 5/5 X4 Ext, Normal Tone, Sensation Intact, Cranial Nerves 3-12 NL Extremities: No Clubbing, No Cyanosis, No Edema, Normal Pulses, No Tenderness/ Swelling Vascular: Normal Pulses, Pulses Symmetrical Last 24 Hrs of Lab/Michael Results Last 24 Hrs of Labs/Mics: Laboratory Tests 11/24/16 0600: Sodium Pending, Potassium Pending, Chloride Pending, Carbon Dioxide Pending, Anion Gap Pending, BUN Pending, Creatinine Pending, BUN/Creatinine Ratio Pending , PT Pending, INR Pending, CBC w Diff Pending, WBC Pending, RBC Pending, Hgb Pending, Hct Pending, MCV Pending, MCH Pending, RDW Pending, Plt Count Pending, MPV Pending, PUBS MCHC Pending 11/23/16 2310: Lactic Acid 1.0 11/23/16 1849: Urine Color YEL, Urine Clarity CLEAR, Urine pH 6.5, Ur Specific [place] <= 1.005 , Urine Protein NEG, Urine Ketones NEG, Urine Nitrite NEG, Urine Bilirubin NEG, Urine Urobilinogen 0.2, Ur Leukocyte Esterase NEG, Ur Microscopic EXAM NOT REQUIRED, Urine Hemoglobin NEG, Urine Glucose NEG 11/23/16 1835: pH 7.47 H, pCO2 28 L, pO2 64 L, HCO3 20 L, ABG O2 Sat (Measured) 91.0 L, P- 50 (Temp Corrected) N, Carboxyhemoglobin 0.3 L, O2 Concentration % 2L, Temperature 98.8, O2 Delivery Method NC, Phlebotomy Draw Site RIGHT BRACHIAL 11/23/16 1624: Anion Gap 13, Estimated GFR 58 L, BUN/Creatinine Ratio 16.0, Glucose 133 H, Lactic Acid 1.5, Calcium 9.7, Total Bilirubin 0.8, AST 24, ALT 34, Alkaline Phosphatase 72, Irv-R-Npdmynromne Pept 2910 H, Total Protein 7.2, Albumin 4.0, Globulin 3.2, Albumin/Globulin Ratio 1.3, CBC w Diff NO MAN DIFF REQ, RBC 3.59 L, MCV 94.3, MCH 31.0, RDW 14.8 H, MPV 7.3 L, Gran % 89.7 H, Lymphocytes % 4.7 L, Monocytes % 5.5, Eosinophils % 0, Basophils % 0.1, Absolute Granulocytes 10.2 H, Absolute Lymphocytes 0.5 L, Absolute Monocytes 0.6, Absolute Eosinophils 0, Absolute Basophils 0, PUBS MCHC 32.8 L Microbiology 11/24 644 URINE ROUT: Legionella Antigen - RECD 11/24 644 URINE ROUT: Streptococcus pneumoniae Antigen (M - RECD 11/23 2101 LOWER RESP: Respiratory Culture - COLB 11/23 2101 LOWER RESP: Gram Stain - COLB 11/23 1635 BLOOD: Blood Culture - RECD 11/23 162 BLOOD: Blood Culture - RECD Assessment/Plan Assessment: Ms. 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 Associated symptoms include fever to 101, chills, lethargy, nasal congestion, chest congestion, shortness of breath, non- productive cough and decreased oral intake. In the ED: Vital signs showed T 98.9, HR 99, RR 20, BP 93/60 and O2 saturation of 87% on room air. Labs showed leukocytosis to 11.3, normocytic anemia to 11.1/ 33.9, Plt 295, granulocytosis to 89.7, normal BEP, lactic acid 1.5, and normal UA. Blood gas was done and showed pH 7.47, pCO2 28, pO2 64 and HCO3 20. CXR was suggestive of multilobar PNA with small left pleural effusion. Chest CTA showed bilateral airspace disease with air bronchograms mainly affecting the middle lung zones. Associated bilateral pleural effusions. Unlikely ARDS. Patient was admitted to the general medicine floor and the following is the management: 1. Acute hypoxic respiratory failure * DDx includes community acquired PNA, heart failure, inflammatory/ rheumatological etiology * Patient given ceftraixone, azithro and vancomycin in the ED * We will start patient on doxycycline (prolonged QTC so will not order azithromycin) * Echocardiogram to monitor for heart failure * High dose steroids 100 gm IV x 1 for possible inflammatory component * Follow up blood and LRC, rapid flu negative * Monitor for fever, leukocytosis likely 2/2 chronic steroid use * Continue to provide supplemental O2 as needed, incentive spirometer, TRC nebs * Continue mucinex * Continue IVF with NS at 100 cc/h for borderline low BP, hold antihypertensives for now * pulmonary consult, caridology consult 2. HTN, Rheumatic hert disease, prior CVA x 2 * Continue warfarin 5 mg PO daily, monitor INR daily * Aggrenox 1 cap PO BID * Lipitor 10 mg PO QPM 3. Mental health * Ativan 0.5 mg PO PRN anxiety * Lexapro 10 mg PO QPM 4. RA, fibromyalgia * Continue plaquenil 200 mg PO BID * Continue lyrica 75 mg PO BID FULL CODE DVTP: Lovenox Problem List: 1. Pneumonia 2. Hypertension 3. Kidney stones 4. Embolic stroke Pain Ratin Pain Location: no pain, chest tightness with deep breaths Pain Goal: Pain 4 or less Pain Plan: tylenol for mild pain Tomorrow's Labs & Rationales: BEP, INR, CBC
[2016-11-24 07:51] VITALS: BP 100/66; BP 118/80
[2016-11-24 08:14] LABS: ABSOLUTE BASOPHIL COUNT 0 /CUMM (0.0-0.2); ABSOLUTE EOSINOPHIL COUNT 0 /CUMM (0.0-0.7); ABSOLUTE GRANULOCYTE CT 6.4 /CUMM (1.4-6.5); ABSOLUTE LYMPH COUNT 1.3 /CUMM (1.2-3.4); ABSOLUTE MONOCYTE COUNT 0.7 /CUMM (0.10-0.60); BASOPHIL % 0.4 % (0.0-2.0); EOSINOPHIL % 0.3 % (0-5); GRANULOCYTE % 76.1 % (42.2-75.2); HEMATOCRIT 29.7 % (37-47); MEAN CORPUSCULAR HGB 31.7 PG (27.0-31.0); MEAN CORPUSCULAR HGB CONC 33.2 G/DL (33.0-37.0); MEAN CORPUSCULAR VOLUME 95.5 FL (81.0-99.0); MEAN PLATELET VOLUME 7.7 FL (7.4-10.4); PLATELET COUNT 252 /CUMM (130-400); RBC DISTRIBUTION WIDTH 15.1 % (11.5-14.5); RED BLOOD CELL CT 3.11 /CUMM (4.20-5.40); WHITE BLOOD CELL COUNT 8.4 /CUMM (4.8-10.8)
--- NOTE | 2016-11-24 12:26 | Cons- Pulmonary ---
General Information and HPI Consulting Request Date of Consult: 11/24/16 Requested By: jose alfredo Reason for Consult: Hypoxic respiratory failure History of Present Illness: This 51-year-old woman with history of mitral and aortic valvular disease rheumatoid arthritis nonsmoker who is seen for increasing shortness of breath. Patient became ill late last week with transient fever cough shortness of breath. She's had no sputum or hemoptysis. Reportedly she had a brief episode of diarrhea. She presented the emergency room and was transiently hypotensive and hypoxic. She was treated with cortisone IV fluids with normalization of blood pressure she is well oxygenated on 2 L nasal oxygen. She's had no chest pain or hemoptysis she denies lower extremity edema. She's had no acute change in the status of her joint pains. She remains on low dose prednisone Coumadin and Aggrenox after having had a CVA due to valvular embolism. Of note her BMP is greater than 2900. Her last echo available is 3 years ago. Allergies/Medications Allergies: Coded Allergies: Sulfa (Sulfonamide Antibiotics) (N/V 01/06/16) Home Med List: Atorvastatin Calcium 10 MG TABLET 1 TAB PO QPM CHOLESTEROL (Reported) Bupropion HCl (Bupropion XL) 300 MG TAB.ER.24H 1 TAB PO QAM ANXIETY/DEPRESSION (Reported) Dipyridamole W/ Aspirin (Aggrenox 25 MG-200 MG Capsule) 25 MG-200 MG CPMP.12HR 1 CAP PO BID BLOOD THINNER (Reported) Escitalopram Oxalate (Lexapro) 10 MG TABLET 1 TAB PO QPM ANXIETY (Reported) Hydroxychloroquine Sulfate 200 MG TABLET 1 TAB PO BID RA (Reported) Ibuprofen/Famotidine (Duexis 800-26.6 MG Tablet) 800 MG-26.6 MG TABLET 1 TAB PO TID PRN RA (Reported) Lisinopril 20 MG TABLET 1 TAB PO QAM BP (Reported) Lorazepam 0.5 MG TABLET 1 TAB PO DAILY PRN ANXIETY (Reported) Metoprolol Succinate 25 MG TAB 1 TAB PO QAM HEART (Reported) Nifedipine (Nifedipine ER) 30 MG TABLET.ER 1 TAB PO QAM REYNAUDS (Reported) Prednisone 5 MG TABLET 1 TAB PO QAM RA (Reported) Pregabalin (Lyrica) 75 MG CAPSULE 1 CAP PO BID FIBROMYALGIA (Reported) Warfarin Sodium 5 MG TABLET 1 TAB PO Wednesday BLOOD THINNER ( Reported) Warfarin Sodium (Coumadin) 2.5 MG TABLET 1 TAB PO AD BLOOD THINNER (Reported) Review of Systems Review of Systems Constitutional: Reports: fever. Denies: chills. Cardiovascular: Denies: chest pain, edema, peripheral edema, syncope. Respiratory: Reports: cough, short of breath, wheezing. Denies: hemoptysis, sputum production. GI: Reports: diarrhea. Denies: abdominal pain, melena. Genitourinary: Denies: dysuria, frequency. Past History Travel History Traveled to [place] past 21 day No Medical History Blood Transfusion Hx: No Neurological: CVA Cardiovascular: hypertension, HYPERLIPIDEMIA RHEAMATIC HEART DISEASE AORTIC STENOSIS Musculoskeletal: fibromyalgia, rheumatoid arthritis Psychiatric: anxiety Surgical History Surgical History: LITHOTRIPSY THERMAL UTERINE ABLATION Family History Relations & Conditions If Any: MOTHER FH: CAD (coronary artery disease) FH: hypertension Psychosocial History Where Do You Live? Home Who Do You Live With? spouse Services at Home: None Primary Language: Montenegrin Smoking Status: Former Smoker ETOH Use: denies use Illicit Drug Use: denies illicit drug use Functional Ability ADLs Independent: dressing, eating, toileting, bathing. Ambulation: independent IADLs Independent: shopping, housework, finances, food prep, telephone, transportation , medication admin. Exam & Diagnostic Data Last 24 Hrs of Vital Signs/I&O Vital Signs Date Time Temp Pulse Resp B/P Pulse O2 O2 Flow FiO2 Ox Delivery Rate 11/24 0751 98.0 90 20 118/80 96 Nasal 2.0L Cannula 11/24 0415 97.4 86 20 110/70 96 Nasal 2.0L Cannula 11/24 0231 97.4 90 20 110/70 94 Nasal 2.0L Cannula 11/24 0009 98.1 90 20 106/70 93 Nasal 2.0L Cannula 11/24 0000 Nasal 2.0L Cannula 11/23 2353 97.7 90 20 105/72 94 Nasal Cannula 11/23 2243 Nasal 2.0L Cannula 11/236 98.1 86 18 106/63 95 Nasal 2.0L Cannula 11/23 1728 98.8 88 18 104/57 92 Room Air 11/23 1626 95 11/23 1616 91 Intake & Output 11/24 1600 11/24 0800 11/24 0000 Intake Total 700 1370 Output Total 300 Balance 400 1370 Intake, IV 600 1250 Intake, Oral 100 120 Output, Urine 300 Patient 201 lb Weight Patient is comfortable woman since saturation 2 L 96% she is afebrile HNT exam shows no JVD exam for chest shows dullness at both bases there are diffuse crackles are no wheezes cardiac exam shows regular S1 and S2 there is a loud systolic ejection murmur of aortic stenosis radiating to the neck abdominal exam is soft nontender extremities without edema or clubbing is no evidence of active joint inflammation Last 48 Hrs of Labs/Michael: Laboratory Tests 11/24/16 0600: Anion Gap 11, Estimated GFR > 60, BUN/Creatinine Ratio 24.3, C-Reactive Prot, Quant > 9.0 H, PT 16.0 H, INR 1.53 H, CBC w Diff NO MAN DIFF REQ, RBC 3.11 L , MCV 95.5, MCH 31.7 H, RDW 15.1 H, MPV 7.7, Gran % 76.1 H, Lymphocytes % 15.1 L, Monocytes % 8.1, Eosinophils % 0.3, Basophils % 0.4, Absolute Granulocytes 6.4, Absolute Lymphocytes 1.3, Absolute Monocytes 0.7 H, Absolute Eosinophils 0, Absolute Basophils 0, PUBS MCHC 33.2 11/23/16 2310: Lactic Acid 1.0 11/23/16 1849: Urine Color YEL, Urine Clarity CLEAR, Urine pH 6.5, Ur Specific [place] <= 1.005 , Urine Protein NEG, Urine Ketones NEG, Urine Nitrite NEG, Urine Bilirubin NEG, Urine Urobilinogen 0.2, Ur Leukocyte Esterase NEG, Ur Microscopic EXAM NOT REQUIRED, Urine Hemoglobin NEG, Urine Glucose NEG 11/23/16 1835: pH 7.47 H, pCO2 28 L, pO2 64 L, HCO3 20 L, ABG O2 Sat (Measured) 91.0 L, P- 50 (Temp Corrected) N, Carboxyhemoglobin 0.3 L, O2 Concentration % 2L, Temperature 98.8, O2 Delivery Method NC, Phlebotomy Draw Site RIGHT BRACHIAL 11/23/16 1624: Anion Gap 13, Estimated GFR 58 L, BUN/Creatinine Ratio 16.0, Glucose 133 H, Lactic Acid 1.5, Calcium 9.7, Total Bilirubin 0.8, AST 24, ALT 34, Alkaline Phosphatase 72, Qgm-R-Qaotgrwbwra Pept 2910 H, Total Protein 7.2, Albumin 4.0, Globulin 3.2, Albumin/Globulin Ratio 1.3, CBC w Diff NO MAN DIFF REQ, RBC 3.59 L, MCV 94.3, MCH 31.0, RDW 14.8 H, MPV 7.3 L, Gran % 89.7 H, Lymphocytes % 4.7 L, Monocytes % 5.5, Eosinophils % 0, Basophils % 0.1, Absolute Granulocytes 10.2 H, Absolute Lymphocytes 0.5 L, Absolute Monocytes 0.6, Absolute Eosinophils 0, Absolute Basophils 0, PUBS MCHC 32.8 L Microbiology 11/24 644 URINE ROUT: Legionella Antigen - COMP 11/24 644 URINE ROUT: Streptococcus pneumoniae Antigen (M - COMP Assessment/Plan Impression/Plan: 51-year-old woman is had acute onset of hypoxic respiratory failure associated with shortness of breath. Differential diagnosis includes community-acquired pneumonia in a mildly immunocompromised state as the patient is on low-dose prednisone, just of heart failure secondary to valvular heart disease in view of elevated BNP and lastly rheumatoid lung disease though the acuity of this would be atypical. The presence of bilateral pleural effusions again raises the spectrum of congestive heart failure as well as rheumatologic effusions Recommendations: Continue Rocephin and doxycycline. Increase prednisone to stress dose levels. Repeat cardiac ultrasound as soon as possible. Consider empiric trial of Lasix. If respiratory failure and radiograph fails to improve then diagnostic and therapeutic thoracentesis would be necessary to determine whether the effusion is transudate consistent with heart failure or exudative with low glucose indicative of rheumatoid disease. Anticoagulation would need to be held with heparin bridging per cardiology assess sedimentation rate obtained quick flu and urine 4 urinary antigens Consult Acknowledgment - Thank you for your consult request.
--- NOTE | 2016-11-24 13:30 | PN- Att Addend ---
Attending MD Review Statement Attending Statement Attending MD Statement: examined this patient, discuss w/resident/PA/MEMORY CARE DIRECTOR, agreed w/resident/PA/MEMORY CARE DIRECTOR, discussed with family, reviewed EMR data (avail), discussed w/ nursing Attending Assessment/Plan: 51 year old female with PMH including prior CVA in 2011 secondary to embolization of AV vegeation on coumadin, HTN, rheumatic heart disease, fibromyalgia, rheumatoid arthritis on prednisone 5mg at home, anxiety and recurrent calcium oxalate stones s/p lithotripsy who presented with a 1 week history of feeling unwell. Patient over the last few days increased her prednisone dose to 15 mg hoping that it will help with her symptoms. One week ago, she started to feel sick. Symptoms at that time included fever to 101, chills, right ear fullness, nasal congestion, chest congestion, dry cough not productive of sputum. Laboratory Tests 11/24/16 0600: Anion Gap 11, Estimated GFR > 60, BUN/Creatinine Ratio 24.3, C-Reactive Prot, Quant > 9.0 H, PT 16.0 H, INR 1.53 H, CBC w Diff NO MAN DIFF REQ, RBC 3.11 L , MCV 95.5, MCH 31.7 H, RDW 15.1 H, MPV 7.7, Gran % 76.1 H, Lymphocytes % 15.1 L, Monocytes % 8.1, Eosinophils % 0.3, Basophils % 0.4, Absolute Granulocytes 6.4, Absolute Lymphocytes 1.3, Absolute Monocytes 0.7 H, Absolute Eosinophils 0, Absolute Basophils 0, PUBS MCHC 33.2 11/23/16 2310: Lactic Acid 1.0 11/23/16 1849: Urine Color YEL, Urine Clarity CLEAR, Urine pH 6.5, Ur Specific [place] <= 1.005 , Urine Protein NEG, Urine Ketones NEG, Urine Nitrite NEG, Urine Bilirubin NEG, Urine Urobilinogen 0.2, Ur Leukocyte Esterase NEG, Ur Microscopic EXAM NOT REQUIRED, Urine Hemoglobin NEG, Urine Glucose NEG 11/23/16 1835: pH 7.47 H, pCO2 28 L, pO2 64 L, HCO3 20 L, ABG O2 Sat (Measured) 91.0 L, P- 50 (Temp Corrected) N, Carboxyhemoglobin 0.3 L, O2 Concentration % 2L, Temperature 98.8, O2 Delivery Method NC, Phlebotomy Draw Site RIGHT BRACHIAL 11/23/16 1624: Anion Gap 13, Estimated GFR 58 L, BUN/Creatinine Ratio 16.0, Glucose 133 H, Lactic Acid 1.5, Calcium 9.7, Total Bilirubin 0.8, AST 24, ALT 34, Alkaline Phosphatase 72, Gyh-J-Jeuekiaehrb Pept 2910 H, Total Protein 7.2, Albumin 4.0, Globulin 3.2, Albumin/Globulin Ratio 1.3, CBC w Diff NO MAN DIFF REQ, RBC 3.59 L, MCV 94.3, MCH 31.0, RDW 14.8 H, MPV 7.3 L, Gran % 89.7 H, Lymphocytes % 4.7 L, Monocytes % 5.5, Eosinophils % 0, Basophils % 0.1, Absolute Granulocytes 10.2 H, Absolute Lymphocytes 0.5 L, Absolute Monocytes 0.6, Absolute Eosinophils 0, Absolute Basophils 0, PUBS MCHC 32.8 L Microbiology 11/24 644 URINE ROUT: Legionella Antigen - COMP 11/24 644 URINE ROUT: Streptococcus pneumoniae Antigen (M - COMP Vital Signs Date Time Temp Pulse Resp B/P Pulse O2 O2 Flow FiO2 Ox Delivery Rate 11/24 0751 98.0 90 20 118/80 96 Nasal 2.0L Cannula 11/24 0415 97.4 86 20 110/70 96 Nasal 2.0L Cannula 11/24 0231 97.4 90 20 110/70 94 Nasal 2.0L Cannula 11/24 0009 98.1 90 20 106/70 93 Nasal 2.0L Cannula 11/24 0000 Nasal 2.0L Cannula 11/23 2353 97.7 90 20 105/72 94 Nasal Cannula 11/23 2243 Nasal 2.0L Cannula 11/23 2056 98.1 86 18 106/63 95 Nasal 2.0L Cannula 11/23 1728 98.8 88 18 104/57 92 Room Air 11/23 1626 95 11/23 1616 91 A/P- Pneumonia Multilobar vs Interstitial pneumonitis in pt with Rheumatoid arthritis -we will get a pulmonology consult and will follow up on the recommendations and for now we will continue her on the antibiotics. We will also get echocardiogram given her history of the aortic wall vegetation for which she is on Coumadin. We will also continue to follow her INR and will give her 5 mg of Coumadin tonight.. We will get ESR and CRP and will DC her IV fluids. Her legionella and streptococcal antigen are negative. Discussed with patient the care plan.
[2016-11-24 15:25] VITALS: BP 108/80
--- NOTE | 2016-11-24 17:35 | Cons- Cardiology ---
General Information and HPI Consulting Request Date of Consult: 11/24/16 Requested By: DARREL HERNANDEZ MD Reason for Consult: Possible congestive heart failure History of Present Illness: The patient is a 51-year-old female with history of CVA in 2011, hypertension, rheumatoid arthritis, bicuspid aortic valve. At the time of her CVA in 2011, KESHIA showed a focal lesion on the mitral valve, and there was concern that this may have led to embolization as a cause of the CVA. She has been anticoagulated on warfarin since that time. She presented with complaint of one-week history of feeling unwell. She began feeling lethargic one week ago and developed a cough. Symptoms included fever with temperature of 101, chills, right ear fullness, nasal congestion, and decreased. Enteric. She's had no palpitations. No sputum production. No wheezing. No syncope. Allergies/Medications Allergies: Coded Allergies: Sulfa (Sulfonamide Antibiotics) (N/V 01/06/16) Home Med List: Atorvastatin Calcium 10 MG TABLET 1 TAB PO QPM CHOLESTEROL (Reported) Bupropion HCl (Bupropion XL) 300 MG TAB.ER.24H 1 TAB PO QAM ANXIETY/DEPRESSION (Reported) Dipyridamole W/ Aspirin (Aggrenox 25 MG-200 MG Capsule) 25 MG-200 MG CPMP.12HR 1 CAP PO BID BLOOD THINNER (Reported) Escitalopram Oxalate (Lexapro) 10 MG TABLET 1 TAB PO QPM ANXIETY (Reported) Hydroxychloroquine Sulfate 200 MG TABLET 1 TAB PO BID RA (Reported) Ibuprofen/Famotidine (Duexis 800-26.6 MG Tablet) 800 MG-26.6 MG TABLET 1 TAB PO TID PRN RA (Reported) Lisinopril 20 MG TABLET 1 TAB PO QAM BP (Reported) Lorazepam 0.5 MG TABLET 1 TAB PO DAILY PRN ANXIETY (Reported) Metoprolol Succinate 25 MG TAB 1 TAB PO QAM HEART (Reported) Nifedipine (Nifedipine ER) 30 MG TABLET.ER 1 TAB PO QAM REYNAUDS (Reported) Prednisone 5 MG TABLET 1 TAB PO QAM RA (Reported) Pregabalin (Lyrica) 75 MG CAPSULE 1 CAP PO BID FIBROMYALGIA (Reported) Warfarin Sodium 5 MG TABLET 1 TAB PO Wednesday BLOOD THINNER ( Reported) Warfarin Sodium (Coumadin) 2.5 MG TABLET 1 TAB PO AD BLOOD THINNER (Reported) Current Medications: Current Medications Sig/Lico Start time Last Medication Dose Route Stop Time Status Admin Acetaminophen 650 MG Q6P PRN 11/23 1945 AC 11/24 PO 1420 Albuterol Sulfate 3 ML EVERY 4 HRS/AWAKE 11/24 1200 AC 11/24 INH 1557 Atorvastatin Calcium 10 MG QPM 11/23 2200 AC PO Azithromycin 500 MG ONCE ONE 11/23 1730 DC 11/23 Dextrose/Water 250 ML IV 11/23 1829 1822 Bupropion HCl 300 MG QAM 11/23 1939 AC 11/24 PO 0912 Ceftriaxone Sodium 0 .STK-MED ONE 11/23 1733 DC .ROUTE Ceftriaxone Sodium 1,000 MG ONCE ONE 11/23 1730 DC 11/23 IV 11/23 1731 1822 Dipyridamole/Aspirin 1 CAP BID 11/23 2200 AC 11/24 PO 0912 Doxycycline Hyclate 100 MG Q12H 11/24 0600 AC 11/24 Sodium Chloride 100 ML IV 0604 Enoxaparin Sodium 40 MG DAILY 11/24 1000 DC SC Escitalopram Oxalate 10 MG QPM 11/23 2200 AC 11/23 PO 2255 Guaifenesin 600 MG Q12 11/23 2200 AC 11/24 PO 0912 Heparin Sodium 25,000 UNIT Q24H 11/24 1545 AC 11/24 (Porcine) IV 1715 Sodium Chloride 500 ML Hydrocortisone 100 MG Q12 11/24 1539 AC 11/24 Sodium Succinate IV 11/28 1538 1716 Hydrocortisone 100 MG ONE ONE 11/23 1745 DC 11/23 Sodium Succinate IV 11/23 1746 1848 Hydroxychloroquine 200 MG BID 11/23 2200 AC 11/24 Sulfate PO 0912 Influenza Virus 0.5 ML 1000 11/24 1000 DC Vaccine IM 11/24 1001 Ipratropium [place] 2.5 ML EVERY 4 HRS/AWAKE 11/24 1200 AC 11/24 INH 1556 Lorazepam 0.5 MG DAILY PRN 11/23 1945 AC 11/24 PO 11/30 1944 1155 Patient Medication 1 ED .STK-MED ONE 11/24 1352 DC Teaching ED 11/24 1353 Prednisone 5 MG DAILY 11/24 1000 DC 11/24 PO 0912 Pregabalin 75 MG BID 11/23 2200 AC 11/24 PO 0912 Sodium Chloride 1,000 ML Q10H 11/23 1999 DC 11/23 IV 2238 Sodium Chloride 1,000 ML BOLUS ONE 11/23 1800 DC 11/23 IV 11/23 1859 2033 Vancomycin HCl 0 .STK-MED ONE 11/23 1829 DC .ROUTE Vancomycin HCl 1,000 MG ONCE ONE 11/23 1745 DC 11/23 Dextrose/Water 250 ML IV 11/23 1844 1913 Warfarin Sodium 5 MG COUMADIN 1700 ONE 11/24 1700 CAN PO 11/24 1701 Review of Systems Review of Systems: No rash. No tremor. No melena. No diaphoresis. No syncope. All other systems were reviewed, and were noted to be negative. Past History Travel History Traveled to [place] past 21 day No Medical History Blood Transfusion Hx: No Neurological: CVA Cardiovascular: hypertension, HYPERLIPIDEMIA RHEAMATIC HEART DISEASE AORTIC STENOSIS Musculoskeletal: fibromyalgia, rheumatoid arthritis Psychiatric: anxiety Surgical History Surgical History: LITHOTRIPSY THERMAL UTERINE ABLATION Family History Relations & Conditions If Any: MOTHER FH: CAD (coronary artery disease) FH: hypertension Psychosocial History Where Do You Live? Home Who Do You Live With? spouse Services at Home: None Primary Language: Setswana Smoking Status: Former Smoker ETOH Use: denies use Illicit Drug Use: denies illicit drug use Functional Ability ADLs Independent: dressing, eating, toileting, bathing. Ambulation: independent IADLs Independent: shopping, housework, finances, food prep, telephone, transportation , medication admin. Exam & Diagnostic Data Vital Signs and I&O Vital Signs Date Time Temp Pulse Resp B/P Pulse O2 O2 Flow FiO2 Ox Delivery Rate 11/24 1658 93 Nasal 4.0L Cannula 11/24 1600 91 Nasal 3.5L Cannula 11/24 1539 Nasal 3.0L Cannula 11/24 1530 98.9 11/24 1525 100.0 98 20 108/80 92 Nasal 2.0L Cannula 11/24 1420 100.0 11/24 0800 Nasal 3.0L Cannula 11/24 0751 98.0 90 20 118/80 96 Nasal 2.0L Cannula 11/24 0415 97.4 86 20 110/70 96 Nasal 2.0L Cannula 11/24 0231 97.4 90 20 110/70 94 Nasal 2.0L Cannula 11/24 0009 98.1 90 20 106/70 93 Nasal 2.0L Cannula 11/24 0000 Nasal 2.0L Cannula 11/233 97.7 90 20 105/72 94 Nasal Cannula 11/23 2243 Nasal 2.0L Cannula 11/23 2055 98.1 86 18 106/63 95 Nasal 2.0L Cannula 11/23 1728 98.8 88 18 104/57 92 Room Air Intake & Output 11/24 0800 11/24 0000 11/23 1600 11/23 0800 11/23 0000 Intake Total 277 054 3556 Output Total 300 Balance 599 853 6859 Intake, IV 518 069 6966 Intake, Oral 500 100 120 Output, Urine 300 Patient 201 lb 201 lb Weight Physical Exam: Gen: The patient is in no acute distress HEENT: Normal nose, ears, and oropharynx. Pupils equal bilaterally. Conjunctiva normal. Neck: Supple with no JVD, no masses, and no thyromegaly Lungs: Bilateral rales and rhonci with normal respiratory effort Heart: RRR, S1, S2, 3/6 systolic murmur. No peripheral edema, 2+ pulses in the lower extremities bilaterally Abdomen: Soft, nontender, no masses. No hepatomegaly. No splenomegaly Extremities: No clubbing or cyanosis. Normal muscle strength in the upper and lower extremities Skin: Normal skin turgor with no skin ulcers or lesions noted. Neuro: Cranial nerves intact. Sensation intact Psych: Alert and oriented 3 with appropriate affect Labs/Michael Results: Laboratory Tests 11/24 11/23 0600 2310 Chemistry Sodium (137 - 145 mmol/L) 143 Potassium (3.5 - 5.1 mmol/L) 3.7 Chloride (98 - 107 mmol/L) 111 H Carbon Dioxide (22 - 30 mmol/L) 22 Anion Gap (5 - 16) 11 BUN (7 - 17 mg/dL) 17 Creatinine (0.5 - 1.0 mg/dL) 0.7 Estimated GFR (>60 ml/min) > 60 BUN/Creatinine Ratio (7 - 25 %) 24.3 Lactic Acid (0.7 - 2.1 mmol/L) 1.0 C-Reactive Prot, Quant (<1.0 mg/dL) > 9.0 H Coagulation PT (9.4 - 12.5 SEC) 16.0 H INR (0.90 - 1.19) 1.53 H Hematology CBC w Diff NO MAN DIFF REQ WBC (4.8 - 10.8 /CUMM) 8.4 RBC (4.20 - 5.40 /CUMM) 3.11 L Hgb (12.0 - 16.0 G/DL) 9.9 L Hct (37 - 47 %) 29.7 L MCV (81.0 - 99.0 FL) 95.5 MCH (27.0 - 31.0 PG) 31.7 H RDW (11.5 - 14.5 %) 15.1 H Plt Count (130 - 400 /CUMM) 252 MPV (7.4 - 10.4 FL) 7.7 Gran % (42.2 - 75.2 %) 76.1 H Lymphocytes % (20.5 - 51.1 %) 15.1 L Monocytes % (1.7 - 9.3 %) 8.1 Eosinophils % (0 - 5 %) 0.3 Basophils % (0.0 - 2.0 %) 0.4 Absolute Granulocytes (1.4 - 6.5 /CUMM) 6.4 Absolute Lymphocytes (1.2 - 3.4 /CUMM) 1.3 Absolute Monocytes (0.10 - 0.60 /CUMM) 0.7 H Absolute Eosinophils (0.0 - 0.7 /CUMM) 0 Absolute Basophils (0.0 - 0.2 /CUMM) 0 PUBS MCHC (33.0 - 37.0 G/DL) 33.2 11/23 11/23 1849 1835 Blood Gas pH (7.35 - 7.45 PH) 7.47 H pCO2 (35 - 45 TORR) 28 L pO2 (80 - 100 TORR) 64 L HCO3 (21 - 28 MEQ/L) 20 L ABG O2 Sat (Measured) (>96.0 %) 91.0 L P-50 (Temp Corrected) N Carboxyhemoglobin (1.5 - 5.0 %) 0.3 L O2 Concentration % 2L Temperature (97.0 - 100.0 FARH) 98.8 O2 Delivery Method NC Miscellaneous Phlebotomy Draw Site RIGHT BRACHIAL Urines Urine Color (YEL,AMB,STR) YEL Urine Clarity (CLEAR) CLEAR Urine pH (5.0 - 8.0) 6.5 Ur Specific [place] (1.001 - 1.035) <= 1.005 Urine Protein (NEG,<30 MG/DL) NEG Urine Ketones (NEG) NEG Urine Nitrite (NEG) NEG Urine Bilirubin (NEG) NEG Urine Urobilinogen (0.1 - 1.0 EU/dl) 0.2 Ur Leukocyte Esterase (NEG) NEG Ur Microscopic EXAM NOT REQUIRED Urine Hemoglobin (NEG) NEG Urine Glucose (N MG/DL) NEG 11/23 1624 Chemistry Sodium (137 - 145 mmol/L) 139 Potassium (3.5 - 5.1 mmol/L) 4.1 Chloride (98 - 107 mmol/L) 102 Carbon Dioxide (22 - 30 mmol/L) 25 Anion Gap (5 - 16) 13 BUN (7 - 17 mg/dL) 16 Creatinine (0.5 - 1.0 mg/dL) 1.0 Estimated GFR (>60 ml/min) 58 L BUN/Creatinine Ratio (7 - 25 %) 16.0 Glucose (65 - 99 mg/dL) 133 H Lactic Acid (0.7 - 2.1 mmol/L) 1.5 Calcium (8.4 - 10.2 mg/dL) 9.7 Total Bilirubin (0.2 - 1.3 mg/dL) 0.8 AST (14 - 36 U/L) 24 ALT (9 - 52 U/L) 34 Alkaline Phosphatase (<127 U/L) 72 Jit-H-Jsjmurvogof Pept (<125 pg/mL) 2910 H Total Protein (6.3 - 8.2 g/dL) 7.2 Albumin (3.5 - 5.0 g/dL) 4.0 Globulin (1.9 - 4.2 gm/dL) 3.2 Albumin/Globulin Ratio (1.1 - 2.2 %) 1.3 Hematology CBC w Diff NO MAN DIFF REQ WBC (4.8 - 10.8 /CUMM) 11.3 H RBC (4.20 - 5.40 /CUMM) 3.59 L Hgb (12.0 - 16.0 G/DL) 11.1 L Hct (37 - 47 %) 33.9 L MCV (81.0 - 99.0 FL) 94.3 MCH (27.0 - 31.0 PG) 31.0 RDW (11.5 - 14.5 %) 14.8 H Plt Count (130 - 400 /CUMM) 295 MPV (7.4 - 10.4 FL) 7.3 L Gran % (42.2 - 75.2 %) 89.7 H Lymphocytes % (20.5 - 51.1 %) 4.7 L Monocytes % (1.7 - 9.3 %) 5.5 Eosinophils % (0 - 5 %) 0 Basophils % (0.0 - 2.0 %) 0.1 Absolute Granulocytes (1.4 - 6.5 /CUMM) 10.2 H Absolute Lymphocytes (1.2 - 3.4 /CUMM) 0.5 L Absolute Monocytes (0.10 - 0.60 /CUMM) 0.6 Absolute Eosinophils (0.0 - 0.7 /CUMM) 0 Absolute Basophils (0.0 - 0.2 /CUMM) 0 PUBS MCHC (33.0 - 37.0 G/DL) 32.8 L Diagnostic Data EKG Results EKG tracing is independently reviewed, and reveals sinus tachycardia at 100, left atrial abdomen mildly, right bundle-branch block CXR Results Multilobar pneumonia, lingula of the left upper lobe and right lower lobe. Small left pleural effusion. Other Results CT scan of the chest: Bilateral airspace disease with air bronchograms mainly affecting the middle lung zones. Associated bilateral pleural effusions. Differential diagnosis would include congestive heart failure versus inflammatory /infectious etiology and unlikely ARDS. Mediastinal lymphadenopathy which can be reactive. KESHIA 07/14/13: 1. The aortic valve is bicuspid with evidence of mild valvular stenosis and minimal aortic insufficiency. 2. Mitral leaflet thickening is present with chordal fusion and evidence of rheumatic changes with mild mitral stenosis and mild to moderate mitral insufficiency with mild left atrial dilatation. The mobile echodensity previously noted on the anterior leaflet is no longer seen. 3. The left atrial appendage is bilobed with not evidence of mass or thrombus. 4. The pulmonary venous anatomy is normal bilaterally. 5. The left ventricular chamber size and systolic function appear normal. 6. The right heart chambers are upper normal in size wtih mild tricuspid and pulmonic insufficiency present. There is no significant pulmonary hypertension, 7. THere is evidence of a very tiny PFO. 8. Grade I atheromatous plaque is present in the distal aortic arch. Assessment/Plan Assessment/Plan 51-year-old female with history of bicuspid aortic valve, mitral prolapse, rheumatoid arthritis, CVA presenting with shortness of breath and fevers. The CT scan of the chest is consistent with bilateral pneumonia, however congestive heart failure is possible as well. The elevated proBNP and lung exam are also consistent with possible congestive heart failure. Recommendations: * IV antibiotics as per the medical service * Would start trial of Lasix 20 mg IV every 12 hours for possible congestive heart failure. * Echocardiogram. * Monitor input and output with daily weights. * Basic metabolic profile daily. Consult Acknowledgment - Thank you for your consult request.
[2016-11-24 21:38] VITALS: BP 114/80
[2016-11-24 23:14] LABS: PTT 45 SEC (25-37)
[2016-11-25 06:05] LABS: ABSOLUTE BASOPHIL COUNT 0 /CUMM (0.0-0.2); ABSOLUTE EOSINOPHIL COUNT 0 /CUMM (0.0-0.7); ABSOLUTE LYMPH COUNT 0.9 /CUMM (1.2-3.4); ABSOLUTE MONOCYTE COUNT 0.7 /CUMM (0.10-0.60); BASOPHIL % 0.2 % (0.0-2.0); EOSINOPHIL % 0.2 % (0-5); HEMATOCRIT 29.1 % (37-47); MEAN CORPUSCULAR HGB 31.3 PG (27.0-31.0); MEAN CORPUSCULAR HGB CONC 33.3 G/DL (33.0-37.0); MEAN CORPUSCULAR VOLUME 94.1 FL (81.0-99.0); MEAN PLATELET VOLUME 7.5 FL (7.4-10.4); PLATELET COUNT 270 /CUMM (130-400); RED BLOOD CELL CT 3.09 /CUMM (4.20-5.40); WHITE BLOOD CELL COUNT 10.7 /CUMM (4.8-10.8)
[2016-11-25 06:09] LABS: PT 20.9 SEC (9.4-12.5)
[2016-11-25 06:12] LABS: PTT 80 SEC (25-37)
[2016-11-25 06:30] VITALS: BP 120/78
--- NOTE | 2016-11-25 07:01 | PN- Housestaff ---
See Addendum Subjective Follow-up For: Acute hypoxic respiratory failure, pneumonia in additin to possible ILD in the setting of RA Hypotension Suspected aortic stenosis Subjective: Patient is awake and alert, appears in mild distress, still is short of breath. Patient feels fullness in the throat but has not been able to bring up phlegm. Patient also reports burning sensation n the right hand while doxycycline was infused. Review of Systems Constitutional: Denies: chills, malaise, weakness. EENTM: Reports: no symptoms. Cardiovascular: Denies: chest pain, palpitations, peripheral edema. Respiratory: Reports: short of breath. Denies: cough, sputum production. Gastrointestinal: Denies: abdominal pain, nausea, changes in stool, vomiting. Genitourinary: Reports: no symptoms. Musculoskeletal: Denies: back pain, muscle pain. Skin: Reports: no symptoms. Neurological/Psychological: Reports: no symptoms. Objective Last 24 Hrs of Vital Signs/I&O Vital Signs Date Time Temp Pulse Resp B/P Pulse O2 O2 Flow FiO2 Ox Delivery Rate 11/25 0852 93 Nasal 4.0L Cannula 11/25 0800 92 Nasal 5.0L Cannula 11/25 0630 97.8 91 20 120/78 92 Nasal 4.0L Cannula 11/25 0000 94 Nasal 4.0L Cannula 11/24 2138 98.6 100 20 114/80 94 11/24 2042 94 Nasal 4.0L Cannula 11/24 1658 93 Nasal 4.0L Cannula 11/24 1600 91 Nasal 3.5L Cannula 11/24 1539 Nasal 3.0L Cannula 11/24 1530 98.9 11/24 1525 100.0 98 20 108/80 92 Nasal 2.0L Cannula 11/24 1420 100.0 Intake & Output 11/25 1600 11/25 0800 11/25 0000 Intake Total 730 473.5 708 Output Total 1999 Balance -1270 473.5 708 Intake, IV 250 233.5 308 Intake, Oral 480 240 400 Number 0 Bowel Movements Output, Urine 1999 Physical Exam General Appearance: Alert, Oriented X3, Cooperative, No Acute Distress Skin: No Rashes, No Breakdown, No Significant Lesion HEENT: Atraumatic Neck: Supple Cardiovascular: Regular Rate, Normal S1, Normal S2, 3/6 systolic decrescendo murmur best heard at the aortic and pulmonic areas Lungs: bibasilar crackles, no wheezing, decreased breath sounds Abdomen: Normal Bowel Sounds, Soft, No Tenderness Neurological: Normal Speech, Normal Tone Extremities: No Edema, Normal Pulses Vascular: Normal Pulses, Pulses Symmetrical Current Medications: Current Medications Sig/Lico Start time Last Medication Dose Route Stop Time Status Admin Acetaminophen 650 MG .STK-MED ONE 11/24 1415 DC PO 11/24 1416 Acetaminophen 650 MG Q6P PRN 11/23 1945 DC 11/25 PO 1154 Albuterol Sulfate 3 ML EVERY 4 HRS/AWAKE 11/24 1200 AC 11/25 INH 0843 Atorvastatin Calcium 10 MG QPM 11/23 2200 AC 11/24 PO 2055 Azithromycin 500 MG DAILY 11/25 1000 AC 11/25 Dextrose/Water 250 ML IV 1155 Bupropion HCl 300 MG QAM 11/23 1939 AC 11/25 PO 0931 Ceftriaxone Sodium 1,000 MG DAILY 11/25 1000 AC 11/25 IV 1154 Dipyridamole/Aspirin 1 CAP BID 11/23 2200 AC 11/25 PO 0931 Doxycycline Hyclate 100 MG Q12H 11/24 0600 DC 11/24 Sodium Chloride 100 ML IV 1859 Escitalopram Oxalate 10 MG QPM 11/23 2200 AC 11/24 PO 2054 Famotidine 20 MG TID PRN 11/25 1215 AC PO Furosemide 20 MG 7:30 AM, & 4:30 PM 11/24 1815 AC 11/25 IV 0930 Guaifenesin 600 MG Q12 11/23 2200 AC 11/25 PO 0931 Heparin Sodium 5,000 UNIT .STK-MED ONE 11/25 0000 DC (Porcine) IV 11/25 0001 Heparin Sodium 3,648 UNIT ONCE ONE 11/24 2345 DC 11/25 (Porcine) IV 11/24 2346 0010 Heparin Sodium 25,000 UNIT Q24H 11/24 1545 AC 11/25 (Porcine) IV 0008 Sodium Chloride 500 ML Hydrocortisone 100 MG Q12 11/24 1539 DC 11/25 Sodium Succinate IV 11/28 1538 0930 Hydroxychloroquine 200 MG BID 11/23 2200 AC 11/25 Sulfate PO 0931 Ibuprofen 800 MG TID PRN 11/25 1215 AC PO Ipratropium [place] 2.5 ML EVERY 4 HRS/AWAKE 11/24 1200 AC 11/25 INH 0843 Lorazepam 0.5 MG BID PRN 11/25 1212 AC PO 12/02 1211 Lorazepam 0.5 MG DAILY PRN 11/23 1944 DC 11/25 PO 11/30 1943 0939 Patient Medication 1 ED .STK-MED ONE 11/24 1352 MO Teaching ED 11/24 1353 Prednisone 60 MG DAILY 11/26 1000 AC PO Prednisone 5 MG DAILY 11/24 1000 DC 11/24 PO 0912 Pregabalin 75 MG BID 11/23 2200 AC 11/25 PO 0931 Warfarin Sodium 5 MG COUMADIN 1700 ONE 11/24 1700 CAN PO 11/24 170 Last 24 Hrs of Lab/Michael Results Last 24 Hrs of Labs/Mics: Laboratory Tests 11/25/16 0545: PT 20.9 H, INR 2.00 H 11/25/16 0545: APTT 80 H, CBC w Diff NO MAN DIFF REQ, RBC 3.09 L, MCV 94.1, MCH 31.3 H, RDW 15.0 H, MPV 7.5, Gran % 84.0 H, Lymphocytes % 8.6 L, Monocytes % 7.0, Eosinophils % 0.2, Basophils % 0.2, Absolute Granulocytes 9.0 H, Absolute Lymphocytes 0.9 L, Absolute Monocytes 0.7 H, Absolute Eosinophils 0, Absolute Basophils 0, PUBS MCHC 33.3, ESR Westergren 123 H 11/24/16 2250: APTT 45 H Assessment/Plan Assessment: Ms. 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 Associated symptoms include fever to 101, chills, lethargy, nasal congestion, chest congestion, shortness of breath, non- productive cough and decreased oral intake. In the ED: Vital signs showed T 98.9, HR 99, RR 20, BP 93/60 and O2 saturation of 87% on room air. Labs showed leukocytosis to 11.3, normocytic anemia to 11.1/ 33.9, Plt 295, granulocytosis to 89.7, normal BEP, lactic acid 1.5, and normal UA. Blood gas was done and showed pH 7.47, pCO2 28, pO2 64 and HCO3 20. CXR was suggestive of multilobar PNA with small left pleural effusion. Chest CTA showed bilateral airspace disease with air bronchograms mainly affecting the middle lung zones. Associated bilateral pleural effusions. Unlikely ARDS. Patient was admitted to the general medicine floor and the following is the management: 1. Acute hypoxic respiratory failure DDx includes community acquired PNA, heart failure, inflammatory/rheumatological etiology * Patient given ceftriaxone, azithro and vancomycin in the ED * Patient received doxycycline for 2 days, switched to Ceftriaxone and azithromycin * Echocardiogram to monitor for heart failure, will follow results * High dose steroids 100 gm IV x 1 for possible inflammatory component, switched to prednisone 60 mg today * Follow up blood and LRC, rapid flu negative, legionella Ag and strep pneumo Ag (-) * Monitor for fever, leukocytosis likely 2/2 chronic steroid use * Continue to provide supplemental O2 as needed, incentive spirometer, TRC nebs * Continue mucinex * Stopped IVF as patient has worsening pleural effusion * Hold antihypertensives for now * f/u Pulmonary consult, ID consult, Rheumatology consult (Dr. Cotter wll see the patient tomorrow) * hold off on bronchoscopy per pulmonary * procalcitonin sent out, also aspergillus ag, and TB gold QT test * ordered nasopharyngeal viral swab 2. HTN, Rheumatic heart disease, prior CVA x 2 * Continue warfarin 5 mg PO daily, monitor INR daily * Aggrenox 1 cap PO BID * Lipitor 10 mg PO QPM * cardiology consult * started on IV heparin and IV lasix per cardio recs 3. Mental health * Ativan 0.5 mg PO PRN anxiety * Lexapro 10 mg PO QPM 4. RA, fibromyalgia * Continue plaquenil 200 mg PO BID * Continue lyrica 75 mg PO BID FULL CODE DVTP: Lovenox Problem List: 1. Pneumonia 2. Rheumatoid aortitis 3. Interstitial lung disease Pain Ratin Pain Location: none Pain Goal: Pain 4 or less Pain Plan: mild pain pathway Tomorrow's Labs & Rationales: CBC, BEP, Mg, INR
--- NOTE | 2016-11-25 07:28 | PN- Pulmonary ---
Subjective HPI/Critical Care Issues: Patient continues to feel short of breath there's been no diuresis. Cardiac ultrasound results are pending. Patient continues to be volume positive. ESR is markedly elevated. Objective Current Medications: Current Medications Sig/Lico Start time Last Medication Dose Route Stop Time Status Admin Acetaminophen 650 MG .STK-MED ONE 11/24 1415 DC PO 11/24 1416 Acetaminophen 650 MG Q6P PRN 11/23 194 AC 11/24 PO 1420 Albuterol Sulfate 3 ML EVERY 4 HRS/AWAKE 11/24 1200 AC 11/24 INH 2024 Atorvastatin Calcium 10 MG QPM 11/23 220 AC 11/24 PO 2054 Bupropion HCl 300 MG QAM 11/23 193 AC 11/24 PO 911 Dipyridamole/Aspirin 1 CAP BID 11/23 2199 AC 11/24 PO 2053 Doxycycline Hyclate 100 MG Q12H 11/24 0600 AC 11/24 Sodium Chloride 100 ML IV 1859 Enoxaparin Sodium 40 MG DAILY 11/24 1000 DC SC Escitalopram Oxalate 10 MG QPM 11/23 220 AC 11/24 PO 2053 Furosemide 20 MG 7:30 AM, & 4:30 PM 11/24 1815 AC 11/24 IV 205 Guaifenesin 600 MG Q12 11/23 2199 AC 11/24 PO 2053 Heparin Sodium 3,648 UNIT ONCE ONE 11/24 2345 DC 11/25 (Porcine) IV 11/24 2346 0010 Heparin Sodium 25,000 UNIT Q24H 11/24 1545 AC 11/25 (Porcine) IV 0008 Sodium Chloride 500 ML Hydrocortisone 100 MG Q12 11/24 1539 AC 11/24 Sodium Succinate IV 11/28 1538 2055 Hydroxychloroquine 200 MG BID 11/23 2199 AC 11/24 Sulfate PO 2053 Influenza Virus 0.5 ML 1000 11/24 1000 DC Vaccine IM 11/24 1001 Ipratropium [place] 2.5 ML EVERY 4 HRS/AWAKE 11/24 1200 AC 11/24 INH 2024 Lorazepam 0.5 MG DAILY PRN 11/23 194 AC 11/24 PO 11/30 194 1155 Patient Medication 1 ED .STK-MED ONE 11/24 1352 DC Teaching ED 11/24 1353 Prednisone 5 MG DAILY 11/24 1000 DC 11/24 PO 09 Pregabalin 75 MG BID 11/23 2199 AC 11/24 PO 2053 Sodium Chloride 1,000 ML Q10H 11/23 1999 DC 11/23 IV 2238 Warfarin Sodium 5 MG COUMADIN 1700 ONE 11/24 1700 CAN PO 11/24 170 Vital Signs & I&O Last 24 Hrs of Vitals and I&O: Vital Signs Date Time Temp Pulse Resp B/P Pulse O2 O2 Flow FiO2 Ox Delivery Rate 11/25 0630 97.8 91 20 120/78 92 Nasal 4.0L Cannula 11/25 0000 94 Nasal 4.0L Cannula 11/24 2138 98.6 100 20 114/80 94 11/24 2042 94 Nasal 4.0L Cannula 11/24 1658 93 Nasal 4.0L Cannula 11/24 1600 91 Nasal 3.5L Cannula 11/24 1539 Nasal 3.0L Cannula 11/24 1530 98.9 11/24 1525 100.0 98 20 108/80 92 Nasal 2.0L Cannula 11/24 1420 100.0 11/24 0800 Nasal 3.0L Cannula 11/24 0751 98.0 90 20 118/80 96 Nasal 2.0L Cannula Intake & Output 11/25 0800 11/25 0000 11/24 1600 Intake Total 473.5 708 850 Output Total Balance 473.5 708 850 Intake, IV 233.5 308 350 Intake, Oral 240 400 500 Number 0 Bowel Movements Patient has low-grade temperature oxygen saturation 4 L 92% exam for chest continues to show crackles and diminished breath sounds at the bases cardiac exam regular S1 and S2 with loud systolic ejection murmur Impression/Plan Impression/Plan Impression/Plan: 51-year-old woman is had acute onset of hypoxic respiratory failure associated with shortness of breath. Differential diagnosis includes community-acquired pneumonia in a mildly immunocompromised state as the patient is on low-dose prednisone, just of heart failure secondary to valvular heart disease in view of elevated BNP and lastly rheumatoid lung disease though the acuity of this would be atypical. The presence of bilateral pleural effusions again raises the spectrum of congestive heart failure as well as rheumatologic effusions. Patient continues to have evidence of respiratory failure there's been no effective diuresis. Recommendations: Continue Rocephin and doxycycline. Increase prednisone to stress dose levels. Follow-up cardiac ultrasound results. DC IV fluids. Fluid balance as suggested by cardiology. With increased sedimentation rate would obtain rheumatology evaluation. If echo does not support a diagnosis of CHF would need to plan for thoracentesis.
--- NOTE | 2016-11-25 10:12 | RADIOLOGY REPORT ---
EXAMINATION: XR PORTABLE CHEST CLINICAL INFORMATION: Bilateral pleural effusion and multi lobar pneumonia. Progressive hypoxia. COMPARISON: CT scan of the chest 11/23/2016. Chest radiograph 11/23/2016. TECHNIQUE: Portable AP view of the chest was obtained. FINDINGS: Multifocal airspace disease involving both lungs is redemonstrated. There appears to have been slight progression when compared to the 11/13/2016 chest radiograph, particularly within the left perihilar region. Small bilateral pleural effusions are suboptimally assessed on this examination due to patient position and AP technique. The cardiac silhouette and upper mediastinal contours are normal. No acute osseous finding. IMPRESSION: Slight worsening multifocal airspace disease involving both lungs consistent with pneumonia.
--- NOTE | 2016-11-25 12:46 | PN- Cardiology ---
Subjective Subjective: The patient continues to be about the same. She still feels slightly short of breath and is coughing. She continues to have low-grade fever and remains mildly tachycardic. Objective Vital Signs and I&Os Vital Signs Date Time Temp Pulse Resp B/P Pulse O2 O2 Flow FiO2 Ox Delivery Rate 11/25 0852 93 Nasal 4.0L Cannula 11/25 0800 92 Nasal 5.0L Cannula 11/25 0630 97.8 91 20 120/78 92 Nasal 4.0L Cannula 11/25 0000 94 Nasal 4.0L Cannula 11/24 2138 98.6 100 20 114/80 94 11/24 2042 94 Nasal 4.0L Cannula 11/24 1658 93 Nasal 4.0L Cannula 11/24 1600 91 Nasal 3.5L Cannula 11/24 1539 Nasal 3.0L Cannula 11/24 1530 98.9 11/24 1525 100.0 98 20 108/80 92 Nasal 2.0L Cannula 11/24 1420 100.0 Intake & Output 11/25 1600 11/25 0800 11/25 0000 11/24 1600 11/24 0800 11/24 0000 Intake Total 730 473.5 708 848 373 6674 Output Total 2000 300 Balance -1270 473.5 708 764 454 4008 Intake, IV 250 233.5 308 920 955 0018 Intake, Oral 480 240 400 500 100 120 Number 0 Bowel Movements Output, Urine 2000 300 Patient 201 lb Weight Physical Exam: General Appearance Alert, Oriented X3, Cooperative, No Acute Distress, mildly dyspneic Skin normal HEENT normal Neck Supple, No thryomegaly, carotids normal bilaterally with bilateral transmitted murmurs Cardiovascular Regular Rate, Normal S1, Normal S2, 3/6 systolic ejection murmur. Lungs Decreased breath sounds bilateral lung verduzco. Bilateral rhonchi Abdomen Normal Neurological Normal Speech, nonfocal Extremities No Clubbing, No Cyanosis, No Tenderness/Swelling Vascular Pulses Symmetrical Current Medications: Current Medications Sig/Lico Start time Last Medication Dose Route Stop Time Status Admin Acetaminophen 650 MG .STK-MED ONE 11/24 1415 DC PO 11/24 1416 Acetaminophen 650 MG Q6P PRN 11/23 1945 DC 11/25 PO 1154 Albuterol Sulfate 3 ML EVERY 4 HRS/AWAKE 11/24 1200 AC 11/25 INH 0843 Atorvastatin Calcium 10 MG QPM 11/23 2200 AC 11/24 PO 205 Azithromycin 500 MG DAILY 11/25 1000 AC 11/25 Dextrose/Water 250 ML IV 1155 Bupropion HCl 300 MG QAM 11/23 1939 AC 11/25 PO 0931 Ceftriaxone Sodium 1,000 MG DAILY 11/25 1000 AC 11/25 IV 1154 Dipyridamole/Aspirin 1 CAP BID 11/23 2200 AC 11/25 PO 0931 Doxycycline Hyclate 100 MG Q12H 11/24 0600 DC 11/24 Sodium Chloride 100 ML IV 1859 Escitalopram Oxalate 10 MG QPM 11/23 2200 AC 11/24 PO 205 Famotidine 20 MG TID PRN 11/25 1215 AC PO Furosemide 20 MG 7:30 AM, & 4:30 PM 11/24 1815 AC 11/25 IV 0930 Guaifenesin 600 MG Q12 11/23 2200 AC 11/25 PO 0931 Heparin Sodium 5,000 UNIT .STK-MED ONE 11/25 0000 DC (Porcine) IV 11/25 0001 Heparin Sodium 3,648 UNIT ONCE ONE 11/24 2345 DC 11/25 (Porcine) IV 11/24 2346 0010 Heparin Sodium 25,000 UNIT Q24H 11/24 1545 AC 11/25 (Porcine) IV 0008 Sodium Chloride 500 ML Hydrocortisone 100 MG Q12 11/24 1539 DC 11/25 Sodium Succinate IV 11/28 1538 0930 Hydroxychloroquine 200 MG BID 11/23 2200 AC 11/25 Sulfate PO 0931 Ibuprofen 800 MG TID PRN 11/25 1215 AC PO Ipratropium [place] 2.5 ML EVERY 4 HRS/AWAKE 11/24 1200 AC 11/25 INH 0843 Lorazepam 0.5 MG BID PRN 11/25 1212 AC PO 12/02 1211 Lorazepam 0.5 MG DAILY PRN 11/23 1945 DC 11/25 PO 11/30 1944 0939 Patient Medication 1 ED .STK-MED ONE 11/24 1352 DC Teaching ED 11/24 1353 Prednisone 60 MG DAILY 11/26 1000 AC PO Prednisone 5 MG DAILY 11/24 1000 DC 11/24 PO 0912 Pregabalin 75 MG BID 11/23 2200 AC 11/25 PO 0931 Warfarin Sodium 5 MG COUMADIN 1700 ONE 11/24 1700 CAN PO 11/24 1701 Results Last 48 Hrs of Labs/Mics: Laboratory Tests 11/25/16 0545: PT 20.9 H, INR 2.00 H 11/25/16 0545: APTT 80 H, CBC w Diff NO MAN DIFF REQ, RBC 3.09 L, MCV 94.1, MCH 31.3 H, RDW 15.0 H, MPV 7.5, Gran % 84.0 H, Lymphocytes % 8.6 L, Monocytes % 7.0, Eosinophils % 0.2, Basophils % 0.2, Absolute Granulocytes 9.0 H, Absolute Lymphocytes 0.9 L, Absolute Monocytes 0.7 H, Absolute Eosinophils 0, Absolute Basophils 0, PUBS MCHC 33.3, ESR Westergren 123 H 11/24/16 2250: APTT 45 H 11/24/16 0600: Anion Gap 11, Estimated GFR > 60, BUN/Creatinine Ratio 24.3, Phosphorus 3.7, Magnesium 2.2, C-Reactive Prot, Quant > 9.0 H, PT 16.0 H, INR 1.53 H, CBC w Diff NO MAN DIFF REQ, RBC 3.11 L, MCV 95.5, MCH 31.7 H, RDW 15.1 H, MPV 7.7, Gran % 76.1 H, Lymphocytes % 15.1 L, Monocytes % 8.1, Eosinophils % 0.3, Basophils % 0.4, Absolute Granulocytes 6.4, Absolute Lymphocytes 1.3, Absolute Monocytes 0.7 H, Absolute Eosinophils 0, Absolute Basophils 0, PUBS MCHC 33.2 11/23/16 2310: Lactic Acid 1.0 11/23/16 1849: Urine Color YEL, Urine Clarity CLEAR, Urine pH 6.5, Ur Specific Kennedy <= 1.005 , Urine Protein NEG, Urine Ketones NEG, Urine Nitrite NEG, Urine Bilirubin NEG, Urine Urobilinogen 0.2, Ur Leukocyte Esterase NEG, Ur Microscopic EXAM NOT REQUIRED, Urine Hemoglobin NEG, Urine Glucose NEG 11/23/16 1835: pH 7.47 H, pCO2 28 L, pO2 64 L, HCO3 20 L, ABG O2 Sat (Measured) 91.0 L, P- 50 (Temp Corrected) N, Carboxyhemoglobin 0.3 L, O2 Concentration % 2L, Temperature 98.8, O2 Delivery Method NC, Phlebotomy Draw Site RIGHT BRACHIAL 11/23/16 1624: Anion Gap 13, Estimated GFR 58 L, BUN/Creatinine Ratio 16.0, Glucose 133 H, Lactic Acid 1.5, Calcium 9.7, Total Bilirubin 0.8, AST 24, ALT 34, Alkaline Phosphatase 72, [id number] Pept 2910 H, Total Protein 7.2, Albumin 4.0, Globulin 3.2, Albumin/Globulin Ratio 1.3, CBC w Diff NO MAN DIFF REQ, RBC 3.59 L, MCV 94.3, MCH 31.0, RDW 14.8 H, MPV 7.3 L, Gran % 89.7 H, Lymphocytes % 4.7 L, Monocytes % 5.5, Eosinophils % 0, Basophils % 0.1, Absolute Granulocytes 10.2 H, Absolute Lymphocytes 0.5 L, Absolute Monocytes 0.6, Absolute Eosinophils 0, Absolute Basophils 0, PUBS MCHC 32.8 L Microbiology 11/24 644 URINE ROUT: Legionella Antigen - COMP 11/24 644 URINE ROUT: Streptococcus pneumoniae Antigen (M - COMP Assessment/Plan Assessment/Plan Assessment: 1. Acute hypoxic respiratory failure with bilateral infiltrates on chest x-ray and CT chest -At the present time, it is difficult to discern the underlying etiology of the patient's current respiratory issues. From a cardiac standpoint, the patient does have underlying bicuspid aortic valve with moderate aortic stenosis and mild to moderate mitral stenosis. The repeat echocardiogram done last night does not show any significant change from the prior echocardiogram of 2014, however, the images were technically limited quality. Nevertheless, the Doppler examination does appear unchanged from previously. The patient's left ventricular function remains normal. She does have significantly elevated gradients across her mitral valve which could represent elevated left atrial pressures. Despite this fact, and the fact that her proBNP is elevated, the patient has multiple other issues including the chest x-ray findings, CAT scan findings, persistent fever despite antibiotics, markedly elevated sedimentation rate, CRP, and the patient history of viral prodrome. The possibility of other issues such as pneumonia in a an immune compromised host, viral pneumonia, underlying inflammatory issues, etc. 2. History of hypertension 3. History of bicuspid aortic valve with aortic stenosis 4. 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 History of prior stroke 6. History of serial positive rheumatoid arthritis 7. Normocytic anemia 8. Markedly elevated sedimentation rate with elevated CRP Recommendations: -For now, I would continue antibiotics pending input from infectious disease -Await rheumatology input -Continue diuresis with IV Lasix. Try to maintain a negative fluid balance of at least 500 mL daily with close monitoring of the patient's blood pressure, heart rate, etc. -The patient's chest x-ray today does appear slightly worse than the previous chest x-ray. -The patient remains tachycardic, which I suspect is related to the underlying issues. I would recheck an ECG today to rule out the possibility of any other arrhythmias such as atrial fibrillation, etc. -Consideration for thoracentesis as outlined by pulmonary service -Eventually, when more stable from a respiratory standpoint, the patient should have a repeat KESHIA to better assess aortic and mitral valve anatomy and function. Continue telemetry? Yes
--- NOTE | 2016-11-25 13:38 | Cons- Infect Disease ---
General Information and HPI Consulting Request Date of Consult: 11/25/16 Requested By: DARREL HERNANDEZ MD Reason for Consult: abx advice Source of Information: patient, primary team Exam Limitations: clinical condition History of Present Illness: 51 year old WF ex smoker with extensive medical history including prior embolic CVA in 2011, HTN, rheumatic heart disease, fibromyalgia, rheumatoid arthritis on prednisone, anxiety and recurrent calcium oxalate stones s/p lithotripsy who presented to the hospital on 11/23/16 with a 1 week history of not feeling well. Patient reports that previous week she started to feel fatigued and developed fever up to 101F, chills, right ear fullness, nasal congestion, chest congestion , dry cough, poor oral intake and hip pain. Patient reports that because of these issues, she increased her home prednisone of 5 mg to 15 mg twice a day to calming down the "inflammation" in her chest. She currently denies palpiations, chest pain, sputum production, wheezing, abdominal pain, nausea, vomiting or weakness. Worsening hypoxemia while treated for multilobar pneumonia with iv abx (CTX/azithromycin). Denies sick contacts or recent travel. Allergies/Medications Allergies: Coded Allergies: Sulfa (Sulfonamide Antibiotics) (N/V 01/06/16) Home Med List: Atorvastatin Calcium 10 MG TABLET 1 TAB PO QPM CHOLESTEROL (Reported) Bupropion HCl (Bupropion XL) 300 MG TAB.ER.24H 1 TAB PO QAM ANXIETY/DEPRESSION (Reported) Dipyridamole W/ Aspirin (Aggrenox 25 MG-200 MG Capsule) 25 MG-200 MG CPMP.12HR 1 CAP PO BID BLOOD THINNER (Reported) Escitalopram Oxalate (Lexapro) 10 MG TABLET 1 TAB PO QPM ANXIETY (Reported) Hydroxychloroquine Sulfate 200 MG TABLET 1 TAB PO BID RA (Reported) Ibuprofen/Famotidine (Duexis 800-26.6 MG Tablet) 800 MG-26.6 MG TABLET 1 TAB PO TID PRN RA (Reported) Lisinopril 20 MG TABLET 1 TAB PO QAM BP (Reported) Lorazepam 0.5 MG TABLET 1 TAB PO DAILY PRN ANXIETY (Reported) Metoprolol Succinate 25 MG TAB 1 TAB PO QAM HEART (Reported) Nifedipine (Nifedipine ER) 30 MG TABLET.ER 1 TAB PO QAM REYNAUDS (Reported) Prednisone 5 MG TABLET 1 TAB PO QAM RA (Reported) Pregabalin (Lyrica) 75 MG CAPSULE 1 CAP PO BID FIBROMYALGIA (Reported) Warfarin Sodium 5 MG TABLET 1 TAB PO Wednesday BLOOD THINNER ( Reported) Warfarin Sodium (Coumadin) 2.5 MG TABLET 1 TAB PO AD BLOOD THINNER (Reported) Current Medications: Current Medications Sig/Lico Start time Last Medication Dose Route Stop Time Status Admin Acetaminophen 650 MG .STK-MED ONE 11/24 1415 DC PO 11/24 1416 Acetaminophen 650 MG Q6P PRN 11/23 1945 DC 11/25 PO 1154 Albuterol Sulfate 3 ML EVERY 4 HRS/AWAKE 11/24 1200 AC 11/25 INH 0843 Atorvastatin Calcium 10 MG QPM 11/23 2200 AC 11/24 PO 2055 Azithromycin 500 MG DAILY 11/25 1000 AC 11/25 Dextrose/Water 250 ML IV 1155 Bupropion HCl 300 MG QAM 11/23 1939 AC 11/25 PO 0931 Ceftriaxone Sodium 1,000 MG DAILY 11/25 1000 AC 11/25 IV 1154 Dipyridamole/Aspirin 1 CAP BID 11/23 2200 AC 11/25 PO 0931 Doxycycline Hyclate 100 MG Q12H 11/24 0600 DC 11/24 Sodium Chloride 100 ML IV 1859 Escitalopram Oxalate 10 MG QPM 11/23 2200 AC 11/24 PO 2054 Famotidine 20 MG TID PRN 11/25 1215 AC PO Furosemide 20 MG 7:30 AM, & 4:30 PM 11/24 1815 AC 11/25 IV 0930 Guaifenesin 600 MG Q12 11/23 2200 AC 11/25 PO 0931 Heparin Sodium 5,000 UNIT .STK-MED ONE 11/25 0000 DC (Porcine) IV 11/25 0001 Heparin Sodium 3,648 UNIT ONCE ONE 11/24 2345 DC 11/25 (Porcine) IV 11/24 2346 0010 Heparin Sodium 25,000 UNIT Q24H 11/24 1545 AC 11/25 (Porcine) IV 0008 Sodium Chloride 500 ML Hydrocortisone 100 MG Q12 11/24 1539 DC 11/25 Sodium Succinate IV 11/28 1538 0930 Hydroxychloroquine 200 MG BID 11/23 2200 AC 11/25 Sulfate PO 0931 Ibuprofen 800 MG TID PRN 11/25 1215 AC PO Ipratropium [place] 2.5 ML EVERY 4 HRS/AWAKE 11/24 1200 AC 11/25 INH 0843 Lorazepam 0.5 MG BID PRN 11/25 1212 AC PO 12/02 1211 Lorazepam 0.5 MG DAILY PRN 11/23 1945 DC 11/25 PO 11/30 194 0939 Patient Medication 1 ED .STK-MED ONE 11/24 1352 DC Teaching ED 11/24 1353 Prednisone 60 MG DAILY 11/26 1000 AC PO Prednisone 5 MG DAILY 11/24 1000 DC 11/24 PO 0912 Pregabalin 75 MG BID 11/23 2200 AC 11/25 PO 0931 Warfarin Sodium 5 MG COUMADIN 1700 ONE 11/24 1700 CAN PO 11/24 1701 Past History Travel History Traveled to [place] past 21 day No Medical History Blood Transfusion Hx: No Neurological: CVA Cardiovascular: hypertension, HYPERLIPIDEMIA RHEAMATIC HEART DISEASE AORTIC STENOSIS Musculoskeletal: fibromyalgia, rheumatoid arthritis Psychiatric: anxiety History of MRSA: No History of VRE: No History of CDIFF: No Isolation History: Standard Influenza Vaccine: 11/24/16 Surgical History Surgical History: LITHOTRIPSY THERMAL UTERINE ABLATION Family History Relations & Conditions If Any: MOTHER FH: CAD (coronary artery disease) FH: hypertension Psychosocial History Where Do You Live? Home Who Do You Live With? spouse Services at Home: None Primary Language: Greek Smoking Status: Former Smoker ETOH Use: denies use Illicit Drug Use: denies illicit drug use Functional Ability ADLs Independent: dressing, eating, toileting, bathing. Ambulation: independent IADLs Independent: shopping, housework, finances, food prep, telephone, transportation , medication admin. Review of Systems Comments 12 points reviewed as noted, otherwise negative. Exam & Diagnostic Data Last 24 Hrs of Vital Signs/I&O Vital Signs Date Time Temp Pulse Resp B/P Pulse O2 O2 Flow FiO2 Ox Delivery Rate 11/25 0852 93 Nasal 4.0L Cannula 11/25 0800 92 Nasal 5.0L Cannula 11/25 0630 97.8 91 20 120/78 92 Nasal 4.0L Cannula 11/25 0000 94 Nasal 4.0L Cannula 11/24 2138 98.6 100 20 114/80 94 11/24 2042 94 Nasal 4.0L Cannula 11/24 1658 93 Nasal 4.0L Cannula 11/24 1600 91 Nasal 3.5L Cannula 11/24 1539 Nasal 3.0L Cannula 11/24 1530 98.9 11/24 1525 100.0 98 20 108/80 92 Nasal 2.0L Cannula 11/24 1420 100.0 Intake & Output 11/25 1600 11/25 0800 11/25 0000 Intake Total 730 473.5 708 Output Total 1999 Balance -1270 473.5 708 Intake, IV 250 233.5 308 Intake, Oral 480 240 400 Number 0 Bowel Movements Output, Urine 2000 Physical Exam Other Physical Findings: General Appearance Alert, Oriented X3, Cooperative, moderate respiratory distress; verbal dyspnea Skin No Rashes, No Significant Lesion, profuse sweating HEENT Atraumatic, PERRLA, Mucous Membr. moist/pink Neck Supple, no JVD Cardiovascular Regular Rate, Normal S1, Normal S2, systolic murmur 3/6. Lungs Decreased breath sounds bilateral lung verduzco. Faint rales R lung base. No wheezing. Abdomen Soft, No Tenderness, BS present Neurological A&O x3, no motor deficit Extremities No Clubbing, No Cyanosis, No Tenderness/Swelling Vascular Pulses Symmetrical Last 24 Hours of Lab Results: Laboratory Tests 11/25 11/25 11/24 0545 0545 2250 Coagulation PT (9.4 - 12.5 SEC) 20.9 H INR (0.90 - 1.19) 2.00 H APTT (25 - 37 SEC) 80 H 45 H Hematology CBC w Diff NO MAN DIFF REQ WBC (4.8 - 10.8 /CUMM) 10.7 RBC (4.20 - 5.40 /CUMM) 3.09 L Hgb (12.0 - 16.0 G/DL) 9.7 L Hct (37 - 47 %) 29.1 L MCV (81.0 - 99.0 FL) 94.1 MCH (27.0 - 31.0 PG) 31.3 H RDW (11.5 - 14.5 %) 15.0 H Plt Count (130 - 400 /CUMM) 270 MPV (7.4 - 10.4 FL) 7.5 Gran % (42.2 - 75.2 %) 84.0 H Lymphocytes % (20.5 - 51.1 %) 8.6 L Monocytes % (1.7 - 9.3 %) 7.0 Eosinophils % (0 - 5 %) 0.2 Basophils % (0.0 - 2.0 %) 0.2 Absolute Granulocytes (1.4 - 6.5 /CUMM) 9.0 H Absolute Lymphocytes (1.2 - 3.4 /CUMM) 0.9 L Absolute Monocytes (0.10 - 0.60 /CUMM) 0.7 H Absolute Eosinophils (0.0 - 0.7 /CUMM) 0 Absolute Basophils (0.0 - 0.2 /CUMM) 0 PUBS MCHC (33.0 - 37.0 G/DL) 33.3 ESR Westergren (0 - 20 MM) 123 H Last 24 Hours of Michael Results: EC #: [id number] BRIDGETTE: 11/24/16 STATUS: COMP RECD: 11/24/[address]: KRISTINA CROOKS,[facility] SOURCE: URINE ROUT ENTR: 11/23/[address]: DAVID CROOKS, DARREL Benjamin SPDESC: VOID URINE HELLER DIRECTOR COMPLIANCE,FREDIS A. ORDERED: SPN URINE AG, LEGIONELLA AG,U COMMENT: Has patient received Pneumovax in past 5 days? N TRIO Procedure Result > STREP PNEUMO URINARY ANTIGEN Final 11/24/16 NEGATIVE FOR STREP PNEUMONIAE BACTERIAL AG, MAY BE BELOW DETECTION LIMIT. > LEGIONELLA URINARY ANTIGEN Final 11/24/16 NEGATIVE FOR LEGIONELLA URINARY ANTIGEN, MAY BE BELOW DETECTION LIMIT. BC x2 11/23 NGTD Diagnostic Data Recent Imaging Findings: ERVICE DATE: 11/23/16 EXAM TYPE: CAT - CT CHEST WO IV CONTRAST EXAMINATION: CT CHEST WITHOUT CONTRAST CLINICAL INFORMATION: Dyspnea. Cough. Multilevel pneumonia. COMPARISON: Chest x-ray 11/23/2016. Chest x-ray 05/25/2014 TECHNIQUE: Multidetector volumetric CT imaging of the chest was done. Axial MIP volume rendering provided. Sagittal and coronal reformatted images were obtained. DLP: 450.39 mGy-cm FINDINGS: Pleura/LUNGS: There is bilateral airspace disease with air bronchograms abnormality affects the mid lung zones bilaterally in a fairly symmetric pattern. The peripheral subpleural lung is relatively spared except for lung bases at the dependent lung. This is associated with bilateral pleural effusions which are moderate in volume. This would suggest a cardiogenic etiology more likely than infectious/inflammatory. ARDS is unlikely. MEDIASTINUM: There is mediastinal lymphadenopathy. Enlarged lymph node at the damari in the pretracheal retrovascular space measuring 1.8 cm with smaller shotty lymph nodes in the same space and AP window. 1.9 cm lymph node in the subcarina. There is coronary artery calcifications present. AXILLA: No lymphadenopathy. UPPER ABDOMEN: 4 mm nonobstructive renal stone in the upper pole of left kidney. OSSEOUS STRUCTURES: Unremarkable. IMPRESSION: Bilateral airspace disease with air bronchograms mainly affecting the middle lung zones. Associated bilateral pleural effusions. Differential diagnosis would include congestive heart failure versus inflammatory /infectious etiology and unlikely ARDS. Mediastinal lymphadenopathy which can be reactive. DICTATED BY: JONNIE NG MD DATE/TIME DICTATED:11/23/161800 [employer]IL[employer] PROFESSOR:DESTINY DATE/TIME TRANSCRIBED:11/23/161800 SERVICE DATE: 11/25/16- EXAM TYPE: RAD - XRY-PORTABLE CHEST XRAY EXAMINATION: XR PORTABLE CHEST CLINICAL INFORMATION: Bilateral pleural effusion and multi lobar pneumonia. Progressive hypoxia. COMPARISON: CT scan of the chest 11/23/2016. Chest radiograph 11/23/2016. TECHNIQUE: Portable AP view of the chest was obtained. FINDINGS: Multifocal airspace disease involving both lungs is redemonstrated. There appears to have been slight progression when compared to the 11/13/2016 chest radiograph, particularly within the left perihilar region. Small bilateral pleural effusions are suboptimally assessed on this examination due to patient position and AP technique. The cardiac silhouette and upper mediastinal contours are normal. No acute osseous finding. IMPRESSION: Slight worsening multifocal airspace disease involving both lungs consistent with pneumonia. DICTATED BY: EPIFANIO CROOKS,MANUEL Elias DATE/TIME DICTATED:11/25/161006 [employer] PHILOSOP[employer] PROFESSOR:DESTINY DATE/TIME TRANSCRIBED:11/25/161006 Assessment/Plan Assessment/Plan Impression: 51 year old WF immunocompromised (chronic steroid treatment) with extensive medical history including prior (?embolic) CVA in 2011, HTN, rheumatic heart disease, rheumatoid arthritis, anxiety admitted on 11/23/16. Hypoxemic resp failure; CT chest performed revealing also mediastinal VANGIE and bilateral airspace disease with air bronchograms abnormality affects the mid lung zones bilaterally in a fairly symmetric pattern. Multilobar pneumonis; CXR findings suggestive of worsening pneumonia; no sputum available to guide antibiotic treatment (broad differential diagnosis) . Mild leukocytosis (on admission); elevated ESR (above 100) Low grade temp (of note steroids can mask fever) Suggestion: 1. Empiric antibiotic coverage with iv CTX 2 gm daily and po doxycycline 100 mg po bid. 2. F/U pulm recom; consider bronch/BAL cultures (bacterial, fungal and mycobacterial). Check w/ IR if mediastinal lymph nodes (damari) ameable to biopsy/culture. 3. F/U 2 D Echo results. Trend CBC, obtain procalcitonin with am labs. Nasopharyngeal viral swab. Aspergillus antigen. TB Gold QT test. 4. PCP prophylaxis w/ Mepron 750 mg po bid (allergic sulfa drugs). Consult Acknowledgment - Thank you for your consult request.
[2016-11-25 14:00] VITALS: BP 114/68
--- NOTE | 2016-11-25 17:16 | ECHOCARDIOGRAM REPORT ---
JAISON VELASQUEZ Age: 51 : 1965 Gender: F Exam Date: 11/24/2016 20:05 Exam Location: [address] [place] [address] Ht (in): 65 Wt (lb): 201 BSA: 2.08 BP: 110 / 70 Ordering Physician: MARCELLE ACEVEDO MD Referring Physician: Jacek Lira MD Technologist: Melody Madera [facility] Room Number: 220-02 Indications: STRUCTURAL HEART DISEASE Rhythm: Sinus Technical Quality: Fair, Technically difficult study FINDINGS Left Ventricle Normal size left ventricle. No obvious regional wall motion abnormalities. Left ventricular wall thickness mildly increased. Normal left ventricular ejection fraction estimated at 60-65%. Right Ventricle Right ventricle not well visualized, grossly normal. Right Atrium Right atrium not well visualized, grossly normal. Left Atrium Moderate left atrial dilatation. Mitral Valve Mild thickening/calcification of the anterior mitral valve leaflet. Mild mitral stenosis. Sbip-kx-mzsgqxjy mitral regurgitation. Aortic Valve Bicuspid aortic valve. Diffuse thickening of the aortic valve cusps with reduced excursion. Dqyclfyh-zz-rtnyzu aortic stenosis. Tricuspid Valve Tricuspid valve not well visualized, grossly normal. Mild tricuspid regurgitation. Pulmonic Valve Pulmonic valve not well visualized. Pericardium Small pericardial effusion. Great Vessels Aortic root and proximal ascending aorta not well visualized, grossly normal. CONCLUSIONS 1. This was a technically difficult and limited examination due to the patient's body habitus and clinical status. 2. Fibrocalcific degeneration is present in a congenitally abnormal bicuspid aortic valve with moderate to severe valvular stenosis (PG 72 mmHg; MG 38 mmHg; SHELBY 0.9 cm2). 3. Thickening and calcification of the mitral leaflets is present extending into the chordal structures with evidence of rheumatic mitral stenosis (PDG 31 mmHg; MDG 15 mmHg; MVA 2.0 cm2) and mild to moderate mitral insufficiency with moderate left atrial enlargement. The MS appears to be mild in severity. 4. A very small pericardial effusion is present. 5. The left ventricular chamber size and systolic function appear normal with mild concentric hypertrophy and no resting wall motion abnormalities. 6. The right heart structures were not optimally visualized. Mild tricuspid insufficiency is present. THe RV systolic pressure was not accurately assessed 7. A KESHIA is suggested to better assess the anatomy and function of the mitral valve. Jacek Lira M.D. (Electronically Signed) Final Date: 25 November 2016 17:16 MEASUREMENTS (Male / Female) Normal Values 2D ECHO LV Diastolic Diameter PLAX 4.3 cm 4.2 - 5.9 / 3.9 - 5.3 cm LV Systolic Diameter PLAX 2.9 cm 2.1 - 4.0 cm LV Fractional Shortening PLAX 32.6 % 25 - 46 % LV Ejection Fraction 2D Teich 61.2 % IVS Diastolic Thickness 1.6 cm LVPW Diastolic Thickness 1.4 cm LV Relative Wall Thickness 0.7 RV Internal Dim ED PLAX 2.5 cm 1.9 - 3.8 cm LVOT Diameter 2.1 cm Aortic Root Diameter 3.0 cm LA Systolic Diameter LX 4.9 cm 3.0 - 4.0 / 2.7 - 3.8 cm LA Volume 58.0 cm 18 - 58 / 22 - 52 cm Ascending Aorta Diameter 3.2 cm DOPPLER AV Peak Velocity 430.0 cm/s AV Peak Gradient 74.0 mmHg AV Mean Velocity 330.0 cm/s AV Mean Gradient 45.0 mmHg AV Velocity Time Integral 86.8 cm LVOT Peak Velocity 116.0 cm/s LVOT Peak Gradient 5.4 mmHg LVOT Mean Velocity 81.7 cm/s LVOT Mean Gradient 3.0 mmHg LVOT Velocity Time Integral 23.5 cm LVOT Stroke Volume 81.4 cm AV Area Cont Eq vti 0.9 cm AV Area Cont Eq pk 0.9 cm MV Peak Velocity 271.5 cm/s MV Peak Gradient 29.5 mmHg MV Mean Velocity 173.0 cm/s MV Mean Gradient 14.5 mmHg Mitral E Point Velocity 266.0 cm/s Mitral A Point Velocity 240.0 cm/s Mitral E to A Ratio 1.1 MV PHT Velocity 276.5 cm/s MV Deceleration Bennett 923.0 cm/s MV Pressure Half Time 89.9 ms MV Area PHT 2.4 cm MV Deceleration Time 333.0 ms TR Peak Velocity 181.0 cm/s TR Peak Gradient 13.1 mmHg Right Atrial Pressure 5.0 mmHg Pulmonary Artery Systolic Pressu 18.1 mmHg Right Ventricular Systolic Press 18.1 mmHg PV Peak Velocity 139.0 cm/s PV Peak Gradient 7.7 mmHg PV Mean Velocity 92.2 cm/s PV Mean Gradient 4.0 mmHg PV Velocity Time Integral 27.7 cm LV E' Lateral Velocity 9.9 cm/s Mitral E to LV E' Lateral Ratio 26.9 LV E' Septal Velocity 6.2 cm/s Mitral E to LV E' Septal Ratio 43.2
--- NOTE | 2016-11-25 18:51 | NUR ---
DURING REPORT WAS TOLD THE PATIENTS HEPARIN GTT WAS DC'D, HOWEVER ORDER REMAINED ACITVE IN EMAR, CALLED FIELD CROP FARMER DEMARIO TO CLARIFY, MD DONITA MCDERMOTT RETURNED CALL AND CONFIRMED HEPARIN GTT WAS TO REMAIN ACTIVE, HEPARIN WAS RESTARTED AT LAST RATE 29.6 AND REPEAT PTT IS DUE AT 1830
[2016-11-25 20:06] LABS: PTT 45 SEC (25-37)
--- NOTE | 2016-11-25 22:39 | NUR ---
RESPIRATORY NOTIFIED THIS TRAFFIC CONTROL TECHNICIAN THAT PTS O2 SAT ON 5L WAS 88% PRIOR TO TREATMENT, O2 INCREASEDT TO 6L, PER PRIOR TALK WITH MD NICHOLAS PT WAS TO BE TRANSFERED IF NOT MAINITAINIG SATS ON 5L. PT IS C/O SOB AND CAN ONLY SPEAK IN SHORT, SLOW, SENTENCES. AMBULATORY SERVICE REPRESENTATIVE ABELARDO PAGED AND CAME TO BED SIDE TO EVALUATE. AMBULATORY SERVICE REPRESENTATIVE ANSHUL RETURNED TO BEDSIDE WITH RESIDENT FOR EVALUATION. PTS O2 SAT ON 6L 88-92% CRACKLES NOTED TO HAVE INCREASED FROM BASES TO MID LUNGS. PT CONTINUES TO C/O SOB. STAT CHEST XRAY AND ABGS ORDERED. WILL CONT TO MONITOR
--- NOTE | 2016-11-25 22:42 | Event Note ---
Event Note Event Note: I was told by the nurse that the patient is having shortness of breath and she is desaturating to 85-88%. I saw the patient at the bedside and did examination. Patient's was short of breath, her respiratory rate is between 25-30, she just had RT treatment and despite of that, she was feeling short of breath, she was not able to complete sentences without having shortness of breath. Patient was on 6 liter nasal cannula and SPO2 after RT was 89-90%. Her pulse was 110, blood pressure 130/80, lungs were clear, with bilateral decrease air entry. I updated Dr. Koroma. We discussed with Dr. Roper. We advised for ABG and chest x-ray to see if there is any worsening respiratory condition or any infection and possible ARDS. Chest x-ray showed worsening of the pneumonia. An ABG showed hypoxia, PO2 of 53. Rapid response was called as Patient was desaturating even on 50% rebreather mask, to 85 to 88%. Patient's extremities were very cold, although axillary temperature was 98.8. With the high probability of ARDS. We transfer the patient to the ICU and updated Dr. Rivero. We also informed to the Mr Wadsworth, over the phone about the patient's clinical status and transferred to the ICU and possible endotracheal intubation in the future. As the patient's FiO2/PO2 ratio was less than 100, she fits into the category of severe ARDS. As her pain. Body mass was 48.6, we will put the patient on TV-400,and RR-20. Informed to Dr. Carvalho, and trasfered patient to ICU.
[2016-11-25 22:49] VITALS: BP 138/78
--- NOTE | 2016-11-25 22:59 | NUR ---
PLACE ON 50% VENTI MASK 02 SAT REMAINING 88-90%
--- NOTE | 2016-11-25 23:23 | RADIOLOGY REPORT ---
EXAMINATION: XR PORTABLE CHEST CLINICAL INFORMATION: Shortness of breath, desaturating COMPARISON: Chest x-ray from earlier today TECHNIQUE: Portable AP view of the chest was obtained. FINDINGS: Lung volumes are symmetric. There is nearly diffuse bilateral airspace opacification, right lung greater than left and overall appearing slightly worsened from today's earlier study. No pneumothorax is seen. Small pleural effusions cannot be excluded. The cardiomediastinal silhouette is stable. No acute osseous findings are seen. IMPRESSION: Extensive bilateral airspace opacification, right lung greater than left and overall slightly worsened from today's earlier study. Differential considerations include edema, developing ARDS, or extensive pneumonia in the proper clinical setting.
[2016-11-26] VITALS: BP 100/80
[2016-11-26 01:08] LABS: ABSOLUTE BASOPHIL COUNT 0 /CUMM (0.0-0.2); ABSOLUTE EOSINOPHIL COUNT 0.2 /CUMM (0.0-0.7); ABSOLUTE GRANULOCYTE CT 9.8 /CUMM (1.4-6.5); ABSOLUTE MONOCYTE COUNT 0.1 /CUMM (0.10-0.60); BASOPHIL % 0.1 % (0.0-2.0); EOSINOPHIL % 1.4 % (0-5); HEMATOCRIT 30.8 % (37-47); MEAN CORPUSCULAR HGB 30.9 PG (27.0-31.0); MEAN CORPUSCULAR HGB CONC 33.1 G/DL (33.0-37.0); MEAN CORPUSCULAR VOLUME 93.4 FL (81.0-99.0); MEAN PLATELET VOLUME 7.7 FL (7.4-10.4); PLATELET COUNT 309 /CUMM (130-400); RBC DISTRIBUTION WIDTH 14.6 % (11.5-14.5); WHITE BLOOD CELL COUNT 11.1 /CUMM (4.8-10.8)
--- NOTE | 2016-11-26 02:02 | NUR ---
RAPID RESPONSE CALLED 2335 FROM A FOR RESP DISTRESS. DX: MULTILOBAR PNA. STAT CXR DONE PRIOR. ABG DONE @2345 7.53/28/53/88/22. 0010 PT WAS TRANSFERRED DOWN TO ICU TO RM 111. TRANSFERRED ONTO THE BED & HOOKED UP ON ROPE CUTTER. ST 110'S, SBP 100'S/MANUAL & 89-90'S/AUTO. ON 100% NRB POX 90%, LS CLEAR/DIMINISHED W/CRACKLES AT THE BASES. REC'D LASIX ON THE FLOORS. HAS NOT VOIDED YET. SOLUCORTEF IV GIVEN. PT DESATTED 88-90%. REC'D REPORT FROM NIRALI ANTHONY. 0100 VOIDED ON BEDPAN VOIDED WELL APPROX 1250CC OF CLEAR YELLOW URINE. 0145 CONT TO DESAT IN MID 80%. INFORMED RT ED >FIO2 80% POX NOW 94%. NO C/O PAIN VOICED.
[2016-11-26 03:32] LABS: PT 18.6 SEC (9.4-12.5); PTT 62 SEC (25-37)
--- NOTE | 2016-11-26 05:58 | Transfer of Care Summary ---
Hospital Course Course Hospital Course: Ms. 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 Associated symptoms included fever to 101, chills, lethargy, nasal congestion, shortness of breath, non-productive cough and decreased oral intake. Patient was admitted to the general medicine floor and the following were addressed: Acute hypoxic respiratory failure: Gradual worsening of symptoms with nonproductive cough, fever, chills and CT finding of bilateral airspace disease. Patient was started on antibiotics to cover CAP with consideration of possible atypical organisms. She had received a dose of azithromycin, ceftriaxone and vancomycin in the ED. On admission she was started on Doxycycline (not azithromycin due to QTc prolongation). Patient continued to have dyspnea on the second day of admission and pulmonary and ID were consulted. We restarted the patient on ceftriaxone and azithromycin on November 25 as the patient's condition was progressively worsening in the AM. Repeat CXR also showed slight worsening of multifocal airspace disease involving both lungs consistent with pneumonia. Dr. Jolly recommended to add Atovaquone to cover possible PCP ( patient is on prednisone chronically for RA). We have also sent labs for procalcitonin, nasopharyngeal swab to screen for viral infections, TB gold QT test. Aspergillus antigen and antibody. Rheumatoid arthritis: In setting of her underlying RA, interstitial lung disease could also be a possibility. We consulted rheumatology, Dr. Cotter on and he is supposed to see the patient today. IV hydrocortisone was started in the ED which was continued for another day but we changed it to PO prednisone yesterday due to her worsening dyspnea and consolidation in CXR. Aortic stenosis: Patient also has significant history of bicuspid aortic valve which may have progressed to aortic stenosis, heart failure could be excluded. ProBNP was elevated to 2910 on admission. ECHO was ordered. Patient did not have any JVD elevation, no pedal edema on admission but developed crackled on the bases of lungs on the second day and we started her on IV lasix. Cardiology was also made aware and they suggested to continue IV lasix but with caution as the patient may become hypotensive due to the aortic stenosis. IV fluids are currently DC'd. Hypotension: patient was transiently hypotensive in ER, responded to fluids, lactate 1.5, patient received a dose of hydrocortisone in ER. Continued NS at 75 mL per hour after second liter of bolus, repeat lactate was 1.0. Patient has had good peripheral perfusion and pulses. We stopped fluids on due to worsening SOB. Antihypertensives are on hold. History of CVA, depression, fibromyalgia: We have continued Aggrenox, warfarin, statin, bupropion, Lexapro, hydroxychloroquine, Lyrica. DVT prophylaxis, patient is on warfarin but INR was subtherapeutic therefore we started her on heparin drip. Rapid response was called on Nov 25, around 10 pm: Patient's respiratory status worsened overnight. She developed more SOB and a second repeat of CXR for that day showed extensive bilateral airspace opacification, slightly worsened from the earlier study, suggesting pulmonary edema, ARDS, or extensive pneumonia. She was desaturating to 85-88% despite increased oxygen through nasal cannula and nebulizer treatment. Repeat chest x-ray and ABG were in accord with possible ARDS and patient was transferred to the ICU for the possible need for intubation. Assessment/Plan: Patient is a 51-year old lady with PMH of RA, CVA, bicuspid aortic valve and AV vegetation on coumadin who came to the ED with acute onset SOB, coughing and wheezing for about a week. Patient's respiratory status has progressively worsen despite oxygen supplementation, nebulizer treatment, empiric antibiotics, IV steroid. we have also started the patient on atovaquone for possible PCP per ID. She has also been receiving lasix for possible CHF and volume overload. Plan: 1. transferred to the ICU as patient continues to desaturate and likely will need intubation 2. patient will need bronchoscopy to further investigate the underlying pathology (BAL for bacterial, fungal and mycobacterial cx). also may need Biopsy of the mediastinal LNs by IR. 3. follow up pulmonary, ID, cardiology and rheumatology recommendations 4. continue empiric antibiotics and high dose steroids. 5. follow up labs: procalcitonin, TB gold QT, aspergillus Ag and Ab, nasopharyngeal swab
[2016-11-26 08:00] VITALS: BP 100/62
--- NOTE | 2016-11-26 08:00 | NUR ---
PT CONT TO DESAT IN HIGH 80'S TO LOW 90'S. >SOBOE RR>30'S ON HIGH FLOW 80%NC LS DIMINISHED THROUGHOUT THE LOBES. PT HAD SWEATY FOREHEAD CHECK HER BS 130'S. TEMP 99.1 @4AM. RT ED TITRATED FIO2 TO 85% POX 92%. PT VERY ANXIOUS & REASSURANCE/EMOTIONAL SUPPORT PROVIDED. UPDATED ON PT STATUS TO DR. SOMMER. ORDERS GIVEN FOR STAT CXR & WILL F/U ON ABGS. REORT GIVEN TO INCOMING RN CHERYLE.
--- NOTE | 2016-11-26 08:30 | NUR ---
A&OX3, BP 100/62, PULSE 103, RR 32 AND LABORED; DR. VARELA TO BEDSIDE; EXPLAINED TO PT. AND TO THAT SHE REQUIRES INTUBATION AND SEDATION TO PROTECT HER AIRWAY, BOTH UNDERSTOOD NEED. RT MIKE, ANESTHESIA TO BEDSIDE; PT. SEDATED WITH PROPOFOL, INTUBATED WITH #8 TO RIGHT AT 24CM; AC 24, VT 500, FI02 30, PEEP 8. PT. TOLERATED PROCEDURE WELL, PT. KEPT ON PROPOFOL SEDATION; SEE FLOW SHEET FOR TITRATION. RETURNED TO BEDSIDE. PT. RESTING COMFORTABLY, RESPIRATORY RATE DOWN TO 24 WITH 02 SAT 99
--- NOTE | 2016-11-26 08:46 | Cons- Rheumatology ---
General Information and HPI Consulting Request Date of Consult: 11/26/16 Requested By: DARREL HERNANDEZ MD Reason for Consult: Evaluate her current illness with respect to previous rheumatologic diagnoses Source of Information: family, old records Exam Limitations: clinical condition History of Present Illness: This is a 51-year-old female who I first saw her in 2011 at which time I evaluated her for possible SLE. She had known Raynaud's disease for many years and was having musculoskeletal complaints. She have what appeared to be libido reticularis over her arms and legs upper chest and I suspected her of possibly having a vasculitis. For her or whole serological tests including an LOREE rheumatoid factor Sjogren's antibodies anti-cardiolipin antibodies and lupus anticoagulant were negative. In October 2014 she had what appeared to be a mild inflammatory arthritis of her fingers and wrists. Was at that time that I placed her on low dosage of prednisone and began Plaquenil 200 mg twice a day. Since that time her musculoskeletal symptoms have abated and actually changed to the point where I suspected her condition was more compatible with fibromyalgia than rheumatoid arthritis. Her last saw her as an outpatient in July 2016 at which time she had no inflammatory arthritis but several tender trigger points characteristic of fibromyalgia. Currently was admitted to the hospital with a 2 day history of progressive shortness of breath and is now in the intensive care unit about to be intubated because of his severe bilateral pneumonia. According to her she has had no fever rashes or sweats or any other increased musculoskeletal symptoms. Allergies/Medications Allergies: Coded Allergies: Sulfa (Sulfonamide Antibiotics) (N/V 01/06/16) Home Med List: Atorvastatin Calcium 10 MG TABLET 1 TAB PO QPM CHOLESTEROL (Reported) Bupropion HCl (Bupropion XL) 300 MG TAB.ER.24H 1 TAB PO QAM ANXIETY/DEPRESSION (Reported) Dipyridamole W/ Aspirin (Aggrenox 25 MG-200 MG Capsule) 25 MG-200 MG CPMP.12HR 1 CAP PO BID BLOOD THINNER (Reported) Escitalopram Oxalate (Lexapro) 10 MG TABLET 1 TAB PO QPM ANXIETY (Reported) Hydroxychloroquine Sulfate 200 MG TABLET 1 TAB PO BID RA (Reported) Ibuprofen/Famotidine (Duexis 800-26.6 MG Tablet) 800 MG-26.6 MG TABLET 1 TAB PO TID PRN RA (Reported) Lisinopril 20 MG TABLET 1 TAB PO QAM BP (Reported) Lorazepam 0.5 MG TABLET 1 TAB PO DAILY PRN ANXIETY (Reported) Metoprolol Succinate 25 MG TAB 1 TAB PO QAM HEART (Reported) Nifedipine (Nifedipine ER) 30 MG TABLET.ER 1 TAB PO QAM REYNAUDS (Reported) Prednisone 5 MG TABLET 1 TAB PO QAM RA (Reported) Pregabalin (Lyrica) 75 MG CAPSULE 1 CAP PO BID FIBROMYALGIA (Reported) Warfarin Sodium 5 MG TABLET 1 TAB PO Wednesday BLOOD THINNER ( Reported) Warfarin Sodium (Coumadin) 2.5 MG TABLET 1 TAB PO AD BLOOD THINNER (Reported) Current Medications: Current Medications Sig/Lico Start time Last Medication Dose Route Stop Time Status Admin Acetaminophen 650 MG .STK-MED ONE 11/25 1138 DC PO 11/25 1139 Acetaminophen 650 MG Q6P PRN 11/23 1945 DC 11/25 PO 1154 Albuterol Sulfate 3 ML EVERY 4 HRS/AWAKE 11/24 1200 AC 11/25 INH 2145 Atorvastatin Calcium 10 MG QPM 11/23 2200 AC 11/25 PO 2145 Atovaquone 750 MG BID 11/25 2200 AC 11/25 PO 2107 Azithromycin 500 MG DAILY 11/25 1000 DC 11/25 Dextrose/Water 250 ML IV 1155 Bupropion HCl 300 MG QAM 11/23 1939 AC 11/25 PO 0931 Ceftriaxone Sodium 2,000 MG DAILY 11/26 1000 AC IV Ceftriaxone Sodium 1,000 MG DAILY 11/25 1000 DC 11/25 IV 1154 Dipyridamole/Aspirin 1 CAP BID 11/23 2200 AC 11/25 PO 2106 Doxycycline Hyclate 100 MG BID 11/25 1422 AC 11/25 PO 2106 Doxycycline Hyclate 100 MG Q12H 11/24 0600 DC 11/24 Sodium Chloride 100 ML IV 1859 Escitalopram Oxalate 10 MG QPM 11/23 2200 AC 11/25 PO 2106 Famotidine 20 MG TID PRN 11/25 1215 AC 11/25 PO 1456 Furosemide 20 MG ONCE ONE 11/25 2315 DC 11/25 IV 11/25 2316 2310 Furosemide 20 MG 7:30 AM, & 4:30 PM 11/24 1815 AC 11/25 IV 1620 Guaifenesin 600 MG Q12 11/23 2200 AC 11/25 PO 2106 Heparin Sodium 25,000 UNIT Q24H 11/24 1545 AC 11/25 (Porcine) IV 2000 Sodium Chloride 500 ML Hydrocortisone 100 MG ONE ONE 11/26 0115 DC 11/26 Sodium Succinate IV 11/26 0116 0122 Hydrocortisone 100 MG Q12 11/24 1539 DC 11/25 Sodium Succinate IV 11/28 1538 0930 Hydroxychloroquine 200 MG BID 11/23 2200 AC 11/25 Sulfate PO 2106 Ibuprofen 800 MG TID PRN 11/25 1215 AC 11/25 PO 1456 Ipratropium Cullen 2.5 ML EVERY 4 HRS/AWAKE 11/24 1200 AC 11/25 INH 2145 Lorazepam 0.5 MG BID PRN 11/25 1212 AC 11/25 PO 12/02 1211 2158 Lorazepam 0.5 MG DAILY PRN 11/23 1945 DC 11/25 PO 11/30 194 0939 Magnesium Sulfate 1 GM ONCE ONE 11/26 0130 DC 11/26 Dextrose/Water 100 ML IV 11/26 0229 0300 Patient Medication 1 ED .STK-MED ONE 11/25 1406 [place] Teaching ED 11/25 1407 Potassium Chloride 10 MEQ Q1H 11/26 0130 DC 11/26 IV 11/26 0331 0553 Prednisone 60 MG DAILY 11/26 1000 AC PO Pregabalin 75 MG BID 11/23 2200 AC 11/25 PO 210 Warfarin Sodium 5 MG COUMADIN 1700 ONE 11/25 1930 CAN PO 11/25 193 Review of Systems Review of Systems: Review of systems is noncontributory I obtained this mainly from her who was at her bedside since the patient is in moderate respiratory distress Past History Travel History Traveled to [place] past 21 day No Medical History Blood Transfusion Hx: No Neurological: CVA Cardiovascular: hypertension, HYPERLIPIDEMIA RHEAMATIC HEART DISEASE AORTIC STENOSIS Musculoskeletal: fibromyalgia, rheumatoid arthritis Psychiatric: anxiety Surgical History Surgical History: LITHOTRIPSY THERMAL UTERINE ABLATION Family History Relations & Conditions If Any: MOTHER FH: CAD (coronary artery disease) FH: hypertension Psychosocial History Where Do You Live? Home Who Do You Live With? spouse Services at Home: None Primary Language: [place] Smoking Status: Former Smoker ETOH Use: denies use Illicit Drug Use: denies illicit drug use Functional Ability ADLs Independent: dressing, eating, toileting, bathing. Ambulation: independent IADLs Independent: shopping, housework, finances, food prep, telephone, transportation , medication admin. Exam & Diagnostic Data Vital Signs and I&O Vital Signs Date Time Temp Pulse Resp B/P Pulse O2 O2 Flow FiO2 Ox Delivery Rate 11/26 0024 92 Nasal 70% Cannula 11/26 0000 90 Nasal 65% Cannula 11/26 0000 99.9 110 36 100/80 90 Non 100% ReBreather 11/25 2345 87 Venti Mask 55% 11/25 2249 98.1 107 28 138/78 89 Nasal 6.0L Cannula 11/25 2145 88 Nasal 5.0L Cannula 11/25 1600 92 Nasal 5.0L Cannula 11/25 1426 92 Nasal 5.0L Cannula 11/25 1400 98.3 93 22 114/68 96 11/25 0852 93 Nasal 4.0L Cannula Intake & Output 11/26 1600 11/26 0800 11/26 0000 Intake Total 688 468 Output Total 1250 800 Balance -562 -332 Intake, IV 688 218 Intake, Oral 0 250 Number 0 Bowel Movements Output, Urine 1250 800 Physical Exam: On examination she is a well-developed well-nourished female in moderate respiratory distress. Musculoskeletal examination fails to reveal any evidence of a cutaneous vasculitis. Joints have good range of motion without any swelling or tenderness. Does have some tenderness in muscles and tender trigger points over her upper and lower extremities but no restriction of motion. Assessment/Plan Assessment: Overall this is a 51-year-old female with mild seronegative rheumatoid arthritis on Plaquenil 200 mg twice a day was admitted to the hospital with what appears to be an infectious bilateral pneumonia. There is no evidence whatsoever to suggest a connective tissue disorder that is playing a role in her current illness. See no reason to repeat any serologies such as LOREE etc. since this is been thoroughly evaluated in the past. Recommendations: I agree with the current recommendations of Dr. Morel and the ICU staff as she will be intubated shortly. Consult Acknowledgment - Thank you for your consult request.
--- NOTE | 2016-11-26 08:49 | Cons- CRCU ---
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 Of note, atient started taking 15 mg of prednisone twice daily increased from regular dose of 5 mg twice daily to calm down the inflammation in her chest. On initial presentation, patient was afebrile. She was hypoxic on room air and required 2L NC. Labs were remarkable for leukocytosis with WBC of 11.3. CT Chest showed bilateral airspace disease and bilateral pleural effusions. Patient was admitted for acute hypoxemic respiratory failure. During this admission, her clinical condition has continued to deteriorate despite receiving empiric antibiotics doxycycline and ceftriaxone and steroids. Work-up has been negative so far and the etiology for her respiratory failure is unclear. Last night she developed severe respiratory distress and hypoxemia and was transferred to the ICU. Allergies/Medications Allergies: Coded Allergies: Sulfa (Sulfonamide Antibiotics) (N/V 01/06/16) Home Med List: Atorvastatin Calcium 10 MG TABLET 1 TAB PO QPM CHOLESTEROL (Reported) Bupropion HCl (Bupropion XL) 300 MG TAB.ER.24H 1 TAB PO QAM ANXIETY/DEPRESSION (Reported) Dipyridamole W/ Aspirin (Aggrenox 25 MG-200 MG Capsule) 25 MG-200 MG CPMP.12HR 1 CAP PO BID BLOOD THINNER (Reported) Escitalopram Oxalate (Lexapro) 10 MG TABLET 1 TAB PO QPM ANXIETY (Reported) Hydroxychloroquine Sulfate 200 MG TABLET 1 TAB PO BID RA (Reported) Ibuprofen/Famotidine (Duexis 800-26.6 MG Tablet) 800 MG-26.6 MG TABLET 1 TAB PO TID PRN RA (Reported) Lisinopril 20 MG TABLET 1 TAB PO QAM BP (Reported) Lorazepam 0.5 MG TABLET 1 TAB PO DAILY PRN ANXIETY (Reported) Metoprolol Succinate 25 MG TAB 1 TAB PO QAM HEART (Reported) Nifedipine (Nifedipine ER) 30 MG TABLET.ER 1 TAB PO QAM REYNAUDS (Reported) Prednisone 5 MG TABLET 1 TAB PO QAM RA (Reported) Pregabalin (Lyrica) 75 MG CAPSULE 1 CAP PO BID FIBROMYALGIA (Reported) Warfarin Sodium 5 MG TABLET 1 TAB PO Wednesday BLOOD THINNER ( Reported) Warfarin Sodium (Coumadin) 2.5 MG TABLET 1 TAB PO AD BLOOD THINNER (Reported) Current Medications: Current Medications Sig/Lico Start time Last Medication Dose Route Stop Time Status Admin Acetaminophen 650 MG .STK-MED ONE 11/25 1138 DC PO 11/25 1139 Acetaminophen 650 MG Q6P PRN 11/23 1945 DC 11/25 PO 1154 Albuterol Sulfate 3 ML EVERY 4 HRS/AWAKE 11/24 1200 AC 11/25 INH 2145 Atorvastatin Calcium 10 MG QPM 11/23 2200 AC 11/25 PO 2145 Atovaquone 750 MG BID 11/25 2200 AC 11/25 PO 2107 Azithromycin 500 MG DAILY 11/25 1000 DC 11/25 Dextrose/Water 250 ML IV 1155 Bupropion HCl 300 MG QAM 11/23 1939 AC 11/25 PO 0931 Ceftriaxone Sodium 2,000 MG DAILY 11/26 1000 AC IV Ceftriaxone Sodium 1,000 MG DAILY 11/25 1000 DC 11/25 IV 1154 Dipyridamole/Aspirin 1 CAP BID 11/23 2200 AC 11/25 PO 2106 Doxycycline Hyclate 100 MG BID 11/25 1422 AC 11/25 PO 2106 Escitalopram Oxalate 10 MG QPM 11/23 2200 AC 11/25 PO 2106 Famotidine 20 MG TID PRN 11/25 1215 AC 11/25 PO 1456 Furosemide 20 MG ONCE ONE 11/25 2315 DC 11/25 IV 11/25 2316 2310 Furosemide 20 MG 7:30 AM, & 4:30 PM 11/24 1815 AC 11/25 IV 1620 Guaifenesin 600 MG Q12 11/23 2200 AC 11/25 PO 2106 Heparin Sodium 25,000 UNIT Q24H 11/24 1545 AC 11/25 (Porcine) IV 2001 Sodium Chloride 500 ML Hydrocortisone 100 MG ONE ONE 11/26 0115 DC 11/26 Sodium Succinate IV 11/26 0116 0122 Hydrocortisone 100 MG Q12 11/24 1539 DC 11/25 Sodium Succinate IV 11/28 1538 0930 Hydroxychloroquine 200 MG BID 11/23 2200 AC 11/25 Sulfate PO 2106 Ibuprofen 800 MG TID PRN 11/25 1215 AC 11/25 PO 1456 Ipratropium [place] 2.5 ML EVERY 4 HRS/AWAKE 11/24 1200 AC 11/25 INH 2145 Lorazepam 0.5 MG BID PRN 11/25 1212 AC 11/25 PO 12/02 1211 2158 Lorazepam 0.5 MG DAILY PRN 11/23 1945 DC 11/25 PO 11/30 1944 0939 Magnesium Sulfate 1 GM ONCE ONE 11/26 0130 DC 11/26 Dextrose/Water 100 ML IV 11/26 0229 0300 Non-Formulary 0 SEE ADMIN CRITERIA 11/26 09 UNVr Medication ANY Patient Medication 1 ED .STK-MED ONE 11/25 1406 DC Teaching ED 11/25 1407 Potassium Chloride 10 MEQ Q1H 11/26 0130 DC 11/26 IV 11/26 0331 0553 Prednisone 60 MG DAILY 11/26 1000 AC PO Pregabalin 75 MG BID 11/23 2200 AC 11/25 PO 2106 Propofol 1,000 MG Q24H 11/26 0915 AC N/A 100 ML IV Sodium Chloride 500 ML BOLUS ONE 11/26 0915 AC IV 11/26 1014 Sodium Chloride 1,000 ML Q10H 11/26 0915 AC IV Vecuronium [place] 10 MG ONCE ONE 11/26 0915 UNVr IV 11/26 0916 Warfarin Sodium 5 MG COUMADIN 1700 ONE 11/25 1930 CAN PO 11/25 1931 Past History Travel History Traveled to [place] past 21 day No Medical History Blood Transfusion Hx: No Neurological: CVA Cardiovascular: hypertension, HYPERLIPIDEMIA RHEAMATIC HEART DISEASE AORTIC STENOSIS Musculoskeletal: fibromyalgia, rheumatoid arthritis Psychiatric: anxiety Surgical History Surgical History: LITHOTRIPSY THERMAL UTERINE ABLATION Family History Relations & Conditions If Any: MOTHER FH: CAD (coronary artery disease) FH: hypertension Psychosocial History Where Do You Live? Home Who Do You Live With? spouse Services at Home: None Primary Language: Tajik Smoking Status: Former Smoker ETOH Use: denies use Illicit Drug Use: denies illicit drug use Functional Ability ADLs Independent: dressing, eating, toileting, bathing. Ambulation: independent IADLs Independent: shopping, housework, finances, food prep, telephone, transportation , medication admin. Exam & Diagnostic Data Last 24 Hrs of Vital Signs/I&O Vital Signs Date Time Temp Pulse Resp B/P Pulse O2 O2 Flow FiO2 Ox Delivery Rate 11/26 0400 90 Nasal 80% Cannula 11/26 0024 92 Nasal 70% Cannula 11/26 0000 90 Nasal 65% Cannula 11/26 0000 99.9 110 36 100/80 90 Non 100% ReBreather 11/25 2345 87 Venti Mask 55% 11/25 2249 98.1 107 28 138/78 89 Nasal 6.0L Cannula 11/25 2145 88 Nasal 5.0L Cannula 11/25 1600 92 Nasal 5.0L Cannula 11/25 1426 92 Nasal 5.0L Cannula 11/25 1400 98.3 93 22 114/68 96 Intake & Output 11/26 1600 11/26 0800 11/26 0000 Intake Total 688 468 Output Total 1250 800 Balance -562 -332 Intake, IV 688 218 Intake, Oral 0 250 Number 0 Bowel Movements Output, Urine 1250 800 Physical Exam General Appearance: well developed/nourished, moderate respiratory distress Ears, Nose, Throat: moist mucus membranes Respiratory: crackles scattered througout bilateral lung verduzco, diminished bibasilar breath sounds Cardiovascular: regular rate/rhythm, normal S1 and S2, grade 3/6 systolic murmur Gastrointestinal: soft, non-tender, positive bowel sounds Extremities: no edema Neurologic/Psych: awake, alert, oriented x 3 Cranial Nerves: no gross focal deficits noted Last 48 Hrs of Labs/Michael: Laboratory Tests 11/26/16 0313: Lactic Acid 0.8, PT 18.6 H, INR 1.78 H, APTT 62 H 11/26/16 0230: APTT Cancelled 11/26/16 0150: pH 7.52 H, pCO2 28 L, pO2 87, HCO3 23, ABG O2 Sat (Measured) 96.0, P-50 (Temp Corrected) Y, Carboxyhemoglobin 0.3 L, O2 Concentration % 80%, Temperature 99.9 , O2 Delivery Method N/C, Phlebotomy Draw Site RIGHT RADIAL 11/26/16 0050: Anion Gap 14, Estimated GFR 58 L, Glucose 103 H, Lactic Acid 2.5 H, Calcium 8.9, Phosphorus 2.8, Magnesium 1.8, Total Bilirubin 0.6, AST 36, ALT 36, Troponin I < 0.01, Albumin 3.3 L, CBC w Diff MAN DIFF ORDERED, RBC 3.30 L, MCV 93.4, MCH 30.9, RDW 14.6 H, MPV 7.7, Gran % 89.0 H, Lymphocytes % 8.7 L, Monocytes % 0.8 L, Eosinophils % 1.4, Basophils % 0.1, Absolute Granulocytes 9.8 H, Segmented Neutrophils 82 H, Absolute Lymphocytes 1.0 L, Lymphocytes 17 L, Monocytes 1 L, Absolute Monocytes 0.1 L, Absolute Eosinophils 0.2, Absolute Basophils 0, Platelet Estimate ADEQUATE, Polychromasia 1+, Poikilocytosis 1+, Ovalocytes 1+, Stomatocytes FEW, PUBS MCHC 33.1, Fld Total RBCs Counted 100 11/25/16 2345: pH 7.53 H, pCO2 28 L, pO2 53 L, HCO3 22, ABG O2 Sat (Measured) 88.0 L, P-50 (Temp Corrected) Y, Carboxyhemoglobin 0.5 L, O2 Concentration % 50%, Temperature 98.8, O2 Delivery Method V/M, Phlebotomy Draw Site RIGHT RADIAL 11/25/16 2310: Aspergillus Antibody Pending 11/25/16 1850: APTT 45 H 11/25/16 0545: PT 20.9 H, INR 2.00 H 11/25/16 0545: APTT 80 H, CBC w Diff NO MAN DIFF REQ, RBC 3.09 L, MCV 94.1, MCH 31.3 H, RDW 15.0 H, MPV 7.5, Gran % 84.0 H, Lymphocytes % 8.6 L, Monocytes % 7.0, Eosinophils % 0.2, Basophils % 0.2, Absolute Granulocytes 9.0 H, Absolute Lymphocytes 0.9 L, Absolute Monocytes 0.7 H, Absolute Eosinophils 0, Absolute Basophils 0, PUBS MCHC 33.3, ESR Westergren 123 H 11/24/16 2250: APTT 45 H Diagnostic Data CXR Results 11/25/16 @ 22:24 PM Extensive bilateral airspace opacification, right lung greater than left and overall slightly worsened from today's earlier study. Differential considerations include edema, developing ARDS, or extensive pneumonia in the proper clinical setting. Other Results CT CHEST W/O IV CONTRAST (11/23/16): Bilateral airspace disease with air bronchograms mainly affecting the middle lung zones. Associated bilateral pleural effusions. Differential diagnosis would include congestive heart failure versus inflammatory /infectious etiology and unlikely ARDS. Mediastinal lymphadenopathy which can be reactive. 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 Respiratory: #Acute hypoxemic respiratory failure: CT Chest on admission with bilateral airspace disease with air bronchograms and associated bilateral pleural effusions. Differential is CHF, ARDS inflammatory and infectious etiologies. * Plan to intubate patient today due to respiratory distress and hypoxemia. * Plan for bronchoscopy today. Send for cultures and cytology. * Rheumatology consulted. Per Dr. Cotter's assessment rheumatoid arthritis is not contributing to second presentation and there is no indicating for repeating the serologies. Infectious Diseases: #Multilobar pneumona: CT with bilateral airspace disease, low-grade fevers and leukocytosis concerning for infection. BCx x2 from admission NGTD. Strep pneumo and Legionella urinary antigen negative. Continues to remain afebrile although WBC has uptrended to 13.9 this morning. * ID following. Appreciate their recs. * Continue empiric antibiotic coverage with doxycycline 100 mg IV BID and ceftriaxone 2 g IV daily. * Continue atovaquone 750 mg PO BID through NG tube for PCP prophylaxis. * Bronchoalveolar lavage samples sent for bacterial, fungal and mycobacterial cultures and PCP PCR. Cardiovascular: #Possible CHF: Unclear whether cardiac etiology is contributing to current respiratory failure. Although ECHO this admission with normal LV function, patient has elevated left atrial pressures secondary to valvular disease. Patient has rheumatic heart disease with mitral stenosis and insufficiency and bicuspid aortic valve with aortic stenosis. proBNP is elevated as well which would be consistent with CHF. * Cardiology following. Appreciate their recs. * Continue to monitor strict I/Os. * Hold Lasix. * Awaiting KESHIA for better evaluation of aortic and mitral valve anatomy and function. Hematology: #Anemia: Anemia most likely chronic. H/H stable. * Continue to monitor H/H. Metabolic: Replete electrolytes to K > 4 and Mg > 2. Alimentary: NPO Neurological: Intubated and sedated with propofol IV drip. Skin: No issues. DVT PPx: HSQ and ALPs CODE: FULL Problem List: 1. Multifocal pneumonia 2. Rheumatoid aortitis 3. Acute hypoxemic respiratory failure 4. Chronic anemia 5. CHF (congestive heart failure) Consult Acknowledgment - Thank you for your consult request. Antonella VARELA MD [place] 11/26/16 0936: General Information and HPI Consulting Request Date of Consult: 11/26/16 Assessment/Plan Other Findings/Comments: I have personally seen and examined the patient and agree with the resident's assessment and plan as defined above. Briefly, the patient is a 51-year-old female ex-smoker with an extensive past medical history including a prior embolic CVA in 2011, hypertension, rheumatic heart disease, fibromyalgia, seronegative rheumatoid arthritis on chronic prednisone and Plaquenil, nephrolithiasis, and anxiety. The patient was admitted on 11/23/2016 with a one -week history of worsening shortness of breath, fever, chills, nasal congestion, dry cough and poor oral intake. Because of the patient's worsening symptoms she increased her chronic prednisone dose from 5 mg to 15 mg twice daily. She was admitted noting that her chest x-ray demonstrated bilateral infiltrates. She had a CT scan of the chest that showed bilateral airspace disease with air bronchograms affecting the middle lung zones. She also had mediastinal adenopathy and bilateral pleural effusions. She has a significant systolic murmur but did have an echocardiogram that has not significantly changed compared to an outpatient echo. She does have moderate to severe aortic stenosis with a bicuspid valve. She also had moderate mitral insufficiency and moderate left atrial enlargement. The right heart structures were not optimally visualized. Her ejection fraction was normal overall. Her cultures are negative overall. Despite receiving empiric antibiotics and high-dose steroids, the patient has continued to deteriorate and is now on high flow oxygen noting that her saturations are in the low 90s on 85%. A decision was made to intubate the patient due to severe respiratory distress and desaturation. A bronchoscopy will be done for further diagnosis. Consult Acknowledgment - Thank you for your consult request.
[2016-11-26 09:25] LABS: ABSOLUTE BASOPHIL COUNT 0 /CUMM (0.0-0.2); ABSOLUTE EOSINOPHIL COUNT 0 /CUMM (0.0-0.7); ABSOLUTE GRANULOCYTE CT 12.9 /CUMM (1.4-6.5); ABSOLUTE LYMPH COUNT 0.5 /CUMM (1.2-3.4); ABSOLUTE MONOCYTE COUNT 0.5 /CUMM (0.10-0.60); BASOPHIL % 0 % (0.0-2.0); EOSINOPHIL % 0.1 % (0-5); GRANULOCYTE % 92.8 % (42.2-75.2); HEMATOCRIT 28.7 % (37-47); MEAN CORPUSCULAR HGB CONC 33.2 G/DL (33.0-37.0); MEAN CORPUSCULAR VOLUME 93.2 FL (81.0-99.0); MEAN PLATELET VOLUME 7.9 FL (7.4-10.4); PLATELET COUNT 311 /CUMM (130-400); RBC DISTRIBUTION WIDTH 14.8 % (11.5-14.5); RED BLOOD CELL CT 3.08 /CUMM (4.20-5.40)
--- NOTE | 2016-11-26 09:30 | NUR ---
ET TUBE WITHDRAWN 2CM TO 22CM PER SUGGESTION OF RADIOLOGIST FROM CHEST XRAY
--- NOTE | 2016-11-26 09:47 | RADIOLOGY REPORT ---
EXAMINATION: XR PORTABLE CHEST CLINICAL INFORMATION: Status post intubation. COMPARISON: CXR from 11/26/2016, 7:58 AM, CXR from 11/25/2016, and chest CT from 11/23/2016. TECHNIQUE: Portable AP view of the chest was obtained. FINDINGS: Endotracheal tube is positioned 0.7 cm above the damari. Recommend withdrawing the tube by approximately 2 cm. Enteric tube extends below the diaphragm and into the proximal stomach. Again noted is extensive airspace opacification of both lungs; this is nonspecific and could represent cardiogenic edema and/or multilobar pneumonia. Cardiac silhouette is partially obscured by the pulmonary disease. No acute skeletal findings. IMPRESSION: 1. Persistent, extensive airspace disease, compatible with multilobar pneumonia. 2. Endotracheal tube is low in position, its tip 0.7 cm above the damari. Recommend withdrawing the ET tube by 2 cm. The ET tube position was discussed with Dr. Mtz at 9:42 AM.
[2016-11-26 09:55] LABS: WHITE BLOOD CELL COUNT 13.9 /CUMM (4.8-10.8)
--- NOTE | 2016-11-26 11:05 | RADIOLOGY REPORT ---
EXAMINATION: XR PORTABLE CHEST CLINICAL INFORMATION: Hypoxia. COMPARISON: Chest x-ray 11/23/2016. Chest CT 11/23/2016. TECHNIQUE: Portable AP view of the chest was obtained. FINDINGS: Stable diffuse hazy prominence of the interstitial markings and associated hazy airspace disease bilateral lungs, right greater than left. No evidence of pleural effusion. Bony thorax is intact. IMPRESSION: Stable bilateral hazy airspace opacification and hazy interstitial thickening, right greater than left.
--- NOTE | 2016-11-26 12:35 | Proc Note Internal Medicine ---
Medicine Procedure Procedure Date: 11/26/16 Medical Procedure(s): bronchoscopy Pre-Operative Diagnosis: Respiratory failure, bilateral infiltrates. Post-Operative Diagnosis: Respiratory failure, bilateral infiltrates. Estimated Blood Loss: none Anesthesia: general endotracheal tube Procedure Findings: Risks and the benefits of a bronchoscopy were explained to the patient in detail. All questions were asked. Consent was obtained. The patient was intubated by anesthesia and placed on mechanical ventilation. The patient was adequately sedated with a propofol drip and 2 mg of Ativan. The patient's vital signs were monitored throughout the procedure noting that her blood pressure heart rate and oxygen saturation were stable. The bronchoscope was introduced through the endotracheal tube. The damari appeared normal. The trachea was normal caliber. The entire tracheobronchial tree was examined and there was no evidence of any endobronchial lesions or secretions. The anatomy appeared normal. Three separate lavages were performed on the right lower lobe, right middle lobe and left lower lobe. The patient tolerated the procedure well without any adverse events. Samples were sent for routine culture, fungal culture, PCP, AFB, and cytology. The patient's family was updated.
--- NOTE | 2016-11-26 13:40 | PN- Infect Dx ---
Subjective Subjective: Previous events noted; patient intubated; s/p bronchoscopy. Scott patent. Breathing comfortable. No fever. Review of Systems Comments: 10 points reviewed as noted, otherwise negative. Objective Last 24 Hrs of Vital Signs/I&O Vital Signs Date Time Temp Pulse Resp B/P Pulse O2 O2 Flow FiO2 Ox Delivery Rate 11/26 0930 98 Ventilator 100% 11/26 0900 100 11/26 0800 91 Nasal 85% Cannula 11/26 0800 96.7 103 32 100/62 91 Nasal 85% Cannula 11/26 0400 90 Nasal 80% Cannula 11/26 0024 92 Nasal 70% Cannula 11/26 0000 90 Nasal 65% Cannula 11/26 0000 99.9 110 36 100/80 90 Non 100% ReBreather 11/25 2345 87 Venti Mask 55% 11/25 2249 98.1 107 28 138/78 89 Nasal 6.0L Cannula 11/25 2145 88 Nasal 5.0L Cannula 11/25 1600 92 Nasal 5.0L Cannula 11/25 1426 92 Nasal 5.0L Cannula 11/25 1400 98.3 93 22 114/68 96 Intake & Output 11/26 1600 11/26 0800 11/26 0000 Intake Total 688 468 Output Total 1250 800 Balance -562 -332 Intake, IV 688 218 Intake, Oral 0 250 Number 0 Bowel Movements Output, Urine 1250 800 Physical Exam Other Physical Findings: General Appearance Critically ill, intubated Skin No Rashes, N HEENT Atraumatic, ETT in place; OG tube in place Neck Supple, no JVD Cardiovascular Regular Rate, Normal S1, Normal S2, systolic murmur 3/6, best heard LUSB Lungs Decreased breath sounds bilateral lung verduzco. No wheezing. Abdomen Soft, No Tenderness, BS present Neurological sedated Extremities No Clubbing, No Cyanosis Vascular Pulses Symmetrical Results Last 24 Hours of Lab Results: Laboratory Tests 11/26 11/26 1135 0937 Blood Gas pH (7.35 - 7.45 PH) Cancelled 7.44 pCO2 (35 - 45 TORR) Cancelled 36 pO2 (80 - 100 TORR) Cancelled 214 H HCO3 (21 - 28 MEQ/L) Cancelled 23 ABG O2 Sat (Measured) (>96.0 %) Cancelled 98.0 P-50 (Temp Corrected) Cancelled Carboxyhemoglobin (1.5 - 5.0 %) Cancelled 0.5 L O2 Concentration % Cancelled 100% Temperature (97.0 - 100.0 FARH) Cancelled 96.7 L Respiration Rate (BPM) 24 O2 Delivery Method Cancelled VENT Vent Mode Cancelled VC-AC Expiratory Pressure (CMH2O/P) Cancelled 8 Tidal Volume (CC) 500 Pressure Support Cancelled Miscellaneous Phlebotomy Draw Site Cancelled LEFT RADIAL 11/26 11/26 11/26 0840 0313 0230 Chemistry Sodium (137 - 145 mmol/L) 141 Potassium (3.5 - 5.1 mmol/L) 3.6 Chloride (98 - 107 mmol/L) 105 Carbon Dioxide (22 - 30 mmol/L) 25 Anion Gap (5 - 16) 12 BUN (7 - 17 mg/dL) 15 Creatinine (0.5 - 1.0 mg/dL) 0.9 Estimated GFR (>60 ml/min) > 60 BUN/Creatinine Ratio (7 - 25 %) 16.7 Lactic Acid (0.7 - 2.1 mmol/L) 0.8 Magnesium (1.6 - 2.3 mg/dL) 2.0 Coagulation PT (9.4 - 12.5 SEC) 18.6 H INR (0.90 - 1.19) 1.78 H APTT (25 - 37 SEC) 62 H Cancelled Hematology CBC w Diff NO MAN DIFF REQ WBC (4.8 - 10.8 /CUMM) 13.9 H RBC (4.20 - 5.40 /CUMM) 3.08 L Hgb (12.0 - 16.0 G/DL) 9.5 L Hct (37 - 47 %) 28.7 L MCV (81.0 - 99.0 FL) 93.2 MCH (27.0 - 31.0 PG) 31.0 RDW (11.5 - 14.5 %) 14.8 H Plt Count (130 - 400 /CUMM) 311 MPV (7.4 - 10.4 FL) 7.9 Gran % (42.2 - 75.2 %) 92.8 H Lymphocytes % (20.5 - 51.1 %) 3.8 L Monocytes % (1.7 - 9.3 %) 3.3 Eosinophils % (0 - 5 %) 0.1 Basophils % (0.0 - 2.0 %) 0 L Absolute Granulocytes (1.4 - 6.5 /CUMM) 12.9 H Absolute Lymphocytes (1.2 - 3.4 /CUMM) 0.5 L Absolute Monocytes (0.10 - 0.60 /CUMM) 0.5 Absolute Eosinophils (0.0 - 0.7 /CUMM) 0 Absolute Basophils (0.0 - 0.2 /CUMM) 0 PUBS MCHC (33.0 - 37.0 G/DL) 33.2 11/26 11/26 0150 0050 Blood Gas pH (7.35 - 7.45 PH) 7.52 H pCO2 (35 - 45 TORR) 28 L pO2 (80 - 100 TORR) 87 HCO3 (21 - 28 MEQ/L) 23 ABG O2 Sat (Measured) (>96.0 %) 96.0 P-50 (Temp Corrected) Y Carboxyhemoglobin (1.5 - 5.0 %) 0.3 L O2 Concentration % 80% Temperature (97.0 - 100.0 FARH) 99.9 O2 Delivery Method N/C Chemistry Sodium (137 - 145 mmol/L) 142 Potassium (3.5 - 5.1 mmol/L) 2.9 *L Chloride (98 - 107 mmol/L) 104 Carbon Dioxide (22 - 30 mmol/L) 24 Anion Gap (5 - 16) 14 BUN (7 - 17 mg/dL) 15 Creatinine (0.5 - 1.0 mg/dL) 1.0 Estimated GFR (>60 ml/min) 58 L Glucose (65 - 99 mg/dL) 103 H Lactic Acid (0.7 - 2.1 mmol/L) 2.5 H Calcium (8.4 - 10.2 mg/dL) 8.9 Phosphorus (2.5 - 4.5 mg/dL) 2.8 Magnesium (1.6 - 2.3 mg/dL) 1.8 Total Bilirubin (0.2 - 1.3 mg/dL) 0.6 AST (14 - 36 U/L) 36 ALT (9 - 52 U/L) 36 Troponin I (< 0.11 ng/ml) < 0.01 Albumin (3.5 - 5.0 g/dL) 3.3 L Hematology CBC w Diff MAN DIFF ORDERED WBC (4.8 - 10.8 /CUMM) 11.1 H RBC (4.20 - 5.40 /CUMM) 3.30 L Hgb (12.0 - 16.0 G/DL) 10.2 L Hct (37 - 47 %) 30.8 L MCV (81.0 - 99.0 FL) 93.4 MCH (27.0 - 31.0 PG) 30.9 RDW (11.5 - 14.5 %) 14.6 H Plt Count (130 - 400 /CUMM) 309 MPV (7.4 - 10.4 FL) 7.7 Gran % (42.2 - 75.2 %) 89.0 H Lymphocytes % (20.5 - 51.1 %) 8.7 L Monocytes % (1.7 - 9.3 %) 0.8 L Eosinophils % (0 - 5 %) 1.4 Basophils % (0.0 - 2.0 %) 0.1 Absolute Granulocytes (1.4 - 6.5 /CUMM) 9.8 H Segmented Neutrophils (42.2 - 75.2 %) 82 H Absolute Lymphocytes (1.2 - 3.4 /CUMM) 1.0 L Lymphocytes (20.5 - 51.1 %) 17 L Monocytes (1.7 - 9.3 %) 1 L Absolute Monocytes (0.10 - 0.60 /CUMM) 0.1 L Absolute Eosinophils (0.0 - 0.7 /CUMM) 0.2 Absolute Basophils (0.0 - 0.2 /CUMM) 0 Platelet Estimate (ADEQUATE) ADEQUATE Polychromasia 1+ Poikilocytosis 1+ Ovalocytes 1+ Stomatocytes FEW PUBS MCHC (33.0 - 37.0 G/DL) 33.1 Miscellaneous Phlebotomy Draw Site RIGHT RADIAL Other Body Source Fld Total RBCs Counted (%) 100 11/25 11/25 11/25 0534 6765 3204 Blood Gas pH (7.35 - 7.45 PH) 7.53 H pCO2 (35 - 45 TORR) 28 L pO2 (80 - 100 TORR) 53 L HCO3 (21 - 28 MEQ/L) 22 ABG O2 Sat (Measured) (>96.0 %) 88.0 L P-50 (Temp Corrected) Y Carboxyhemoglobin (1.5 - 5.0 %) 0.5 L O2 Concentration % 50% Temperature (97.0 - 100.0 FARH) 98.8 O2 Delivery Method V/M Coagulation APTT (25 - 37 SEC) 45 H Miscellaneous Phlebotomy Draw Site RIGHT RADIAL Serology Aspergillus Antibody Pending Last 24 Hours of Michael Results: SPEC #: [id number] BRIDGETTE: 11/26/16 STATUS: ORD RECD: - SUBM DR: VLAD CROOKS,IMGE SOURCE: LOWER RESP ENTR: 11/26/[address]: DAVID CROOKS, DARREL Benjamin SPDESC: BRONCH LAV HELFREDIS ESCOTO APRN ORDERED: LOWER RESPIRATO Procedure Result LOWER RESPIRATO PENDING RECEIPT Recent Imaging Studies: SERVICE DATE: 11/26/16 EXAM TYPE: RAD - XRY-PORTABLE CHEST XRAY EXAMINATION: XR PORTABLE CHEST CLINICAL INFORMATION: Status post intubation. COMPARISON: CXR from 11/26/2016, 7:58 AM, CXR from 11/25/2016, and chest CT from 11/23/2016. TECHNIQUE: Portable AP view of the chest was obtained. FINDINGS: Endotracheal tube is positioned 0.7 cm above the damari. Recommend withdrawing the tube by approximately 2 cm. Enteric tube extends below the diaphragm and into the proximal stomach. Again noted is extensive airspace opacification of both lungs; this is nonspecific and could represent cardiogenic edema and/or multilobar pneumonia. Cardiac silhouette is partially obscured by the pulmonary disease. No acute skeletal findings. IMPRESSION: 1. Persistent, extensive airspace disease, compatible with multilobar pneumonia. 2. Endotracheal tube is low in position, its tip 0.7 cm above the damari. Recommend withdrawing the ET tube by 2 cm. The ET tube position was discussed with Dr. Mtz at 9:42 AM. DICTATED BY: JOEY LOPEZ MD DATE/TIME DICTATED:11/26/16930 PRECISION THREAD GRINDER OPERATOR:DESTINY DATE/TIME TRANSCRIBED:11/26/16930 CONFIDENTIAL, DO NOT COPY WITHOUT APPROPRIATE AUTHORIZATION. SERVICE DATE: 11/24/16 EXAM TYPE: CARD - ECHOCARDIOGRAM JAISON VELASQUEZ Age: 51 : 1965 Gender: F Exam Date: 11/24/2016 20:05 Exam Location: [address] [place] [address] Ht (in): 65 Wt (lb): 201 BSA: 2.08 BP: 110 / 70 Ordering Physician: MARCELLE ACEVEDO MD Referring Physician: Jacek Lira MD Technologist: Melody Madera [facility] Room Number: 220-02 Indications: STRUCTURAL HEART DISEASE Rhythm: Sinus Technical Quality: Fair, Technically difficult study FINDINGS Left Ventricle Normal size left ventricle. No obvious regional wall motion abnormalities. Left ventricular wall thickness mildly increased. Normal left ventricular ejection fraction estimated at 60-65%. Right Ventricle Right ventricle not well visualized, grossly normal. Right Atrium Right atrium not well visualized, grossly normal. Left Atrium Moderate left atrial dilatation. Mitral Valve Mild thickening/calcification of the anterior mitral valve leaflet. Mild mitral stenosis. [id number] mitral regurgitation. Aortic Valve Bicuspid aortic valve. Diffuse thickening of the aortic valve cusps with reduced excursion. Luopdhia-be-[id number] aortic stenosis. Tricuspid Valve Tricuspid valve not well visualized, grossly normal. Mild tricuspid regurgitation. Pulmonic Valve Pulmonic valve not well visualized. Pericardium Small pericardial effusion. Great Vessels Aortic root and proximal ascending aorta not well visualized, grossly normal. CONCLUSIONS 1. This was a technically difficult and limited examination due to the patient's body habitus and clinical status. 2. Fibrocalcific degeneration is present in a congenitally abnormal bicuspid aortic valve with moderate to severe valvular stenosis (PG 72 mmHg; MG 38 mmHg; SHELBY 0.9 cm2). 3. Thickening and calcification of the mitral leaflets is present extending into the chordal structures with evidence of rheumatic mitral stenosis (PDG 31 mmHg; MDG 15 mmHg; MVA 2.0 cm2) and mild to moderate mitral insufficiency with moderate left atrial enlargement. The MS appears to be mild in severity. 4. A very small pericardial effusion is present. 5. The left ventricular chamber size and systolic function appear normal with mild concentric hypertrophy and no resting wall motion abnormalities. 6. The right heart structures were not optimally visualized. Mild tricuspid insufficiency is present. THe RV systolic pressure was not accurately assessed 7. A KESHIA is suggested to better assess the anatomy and function of the mitral valve. Jacek Lira M.D. (Electronically Signed) Final Date: 25 November 2016 17:16 Assessment/Plan Impression: 51 year old WF immunocompromised (chronic steroid treatment) with extensive medical history including prior (?embolic) CVA in 2011, HTN, rheumatic heart disease, rheumatoid arthritis, anxiety admitted on 11/23/16. Acute hypoxemic resp failure; CT chest performed revealing also mediastinal VANGIE and bilateral airspace disease with air bronchograms abnormality affects the mid lung zones bilaterally in a fairly symmetric pattern. Multilobar pneumonia; repeat CXR today post intubation findings suggestive of worsening pneumonia; no sputum available to guide antibiotic treatment (broad differential diagnosis); planned bronchoscopy Elevated ESR (above 100) Abnormal 2 D echo findings); h/o rheumatic heart disease; Suggestion: 1. Empiric antibiotic coverage with iv CTX 2 gm daily and po doxycycline 100 mg iv bid. 2. F/U bronch cultures results (bacterial, fungal and mycobacterial). D/C TB gold QT test; f/u procalcitonin test results 3. Trend BMP, CBC (worsening leukocytosis in the setting of infection/steroid use). 4. PCP prophylaxis w/ Mepron 750 mg bid via NGT (allergic sulfa drugs). 5. KESHIA to evaluate valves/EF.
--- NOTE | 2016-11-26 15:21 | NUR ---
BEDSIDE BRONCHOSCOPY DONE BY DR. VARELA WITH RESPIRATORY ASSISTANCE. NO COMPLICATIONS. PT INTUBATED, ON 100%, SATS REMAINED IN 90'S THROUGHOUT PROCEDURE, TITRATED BACK TO 80% POST. TWO 10CC BAL'S DONE WITH A TOTAL OF 15CC RETURN - SAMPLE TO LAB BY MD POST PROCEDURE.
[2016-11-26 16:00] VITALS: BP 92/64
[2016-11-26 16:13] LABS: PTT 54 SEC (25-37)
--- NOTE | 2016-11-26 19:43 | PN- Cardiology ---
Subjective Subjective: Overnight events noted. Worsening dyspnea despite some diuresis. No other CV symptoms noted. Sinus tachycardia without other arrhythmias. Objective Vital Signs and I&Os Vital Signs Date Time Temp Pulse Resp B/P Pulse O2 O2 Flow FiO2 Ox Delivery Rate 11/26 1626 70 11/26 1600 96 Ventilator 70% 11/26 1600 99.5 86 13 92/64 97 Ventilator 70% 11/26 1400 Ventilator 100% 11/26 1359 80 11/26 1200 99 Ventilator 100% 11/26 0930 98 Ventilator 100% 11/26 0900 100 11/26 0800 91 Nasal 85% Cannula 11/26 0800 96.7 103 32 100/62 91 Nasal 85% Cannula 11/26 0400 90 Nasal 80% Cannula 11/26 0024 92 Nasal 70% Cannula 11/26 0000 90 Nasal 65% Cannula 11/26 0000 99.9 110 36 100/80 90 Non 100% ReBreather 11/25 2345 87 Venti Mask 55% 11/25 2249 98.1 107 28 138/78 89 Nasal 6.0L Cannula 11/255 88 Nasal 5.0L Cannula Intake & Output 11/26 1600 11/26 0800 11/26 0000 11/25 1600 11/25 0800 11/25 0000 Intake Total 1691 912 348 1266 473.5 708 Output Total 350 4732 916 0655 Balance 1341 -562 -332 -1670 473.5 708 Intake, IV 1691 688 218 250 233.5 308 Intake, Oral 0 0 250 880 240 400 Number 0 0 0 Bowel Movements Output, Urine 350 0620 739 6813 Physical Exam: General Appearance: Alert, Oriented X3, Cooperative, Mild to moderate respiratory distress Skin: No Rashes, No Breakdown, No Significant Lesion HEENT: Atraummatic Neck: Supple, JVP normal Cardiovascular: Regular Rate, Normal S1, Normal S2, 3/6 systolic ejection murmur Lungs: bilateral rhonchi with decreased breath sounds Abdomen: Normal Bowel Sounds, Soft, No Tenderness Neurological: Normal Speech, Normal Tone Extremities: No Edema, Normal Pulses Vascular: Normal Pulses, Pulses Symmetrical Current Medications: Current Medications Sig/Lico Start time Last Medication Dose Route Stop Time Status Admin Albuterol Sulfate 3 ML EVERY 4 HRS/AWAKE 11/24 1200 AC 11/26 INH 0926 Atorvastatin Calcium 10 MG QPM 11/23 2200 DC 11/25 PO 2145 Atovaquone 750 MG BID 11/26 1455 AC 11/26 PO 11/27 1454 1548 Atovaquone 750 MG BID 11/25 2200 DC 11/25 PO 2107 Bupropion HCl 300 MG QAM 11/23 1939 DC 11/25 PO 0931 Ceftriaxone Sodium 2,000 MG DAILY 11/26 1000 AC 11/26 IV 1001 Dipyridamole/Aspirin 1 CAP BID 11/23 2200 DC 11/25 PO 2106 Doxycycline Hyclate 100 MG Q12 11/26 1008 AC 11/26 Sodium Chloride 100 ML IV 1203 Doxycycline Hyclate 100 MG BID 11/25 1422 DC 11/25 PO 2106 Escitalopram Oxalate 10 MG QPM 11/23 2200 DC 11/25 PO 2106 Famotidine 20 MG BID PRN 11/26 1015 DC IV Famotidine 20 MG TID PRN 11/25 1215 DC 11/25 PO 1456 Fentanyl Citrate 1,000 MCG Q24H 11/26 1645 AC 11/26 Dextrose/Water 250 ML IV 1825 Furosemide 20 MG ONCE ONE 11/25 2315 DC 11/25 IV 11/25 2316 2310 Furosemide 20 MG 7:30 AM, & 4:30 PM 11/24 1815 DC 11/25 IV 1620 Guaifenesin 600 MG Q12 11/23 2200 DC 11/25 PO 2106 Heparin Sodium 3,600 UNIT ONCE ONE 11/26 1730 DC 11/26 (Porcine) IV 11/26 1731 1809 Heparin Sodium 25,000 UNIT Q24H 11/24 1545 AC 11/26 (Porcine) IV 1519 Sodium Chloride 500 ML Hydrocortisone 100 MG ONE ONE 11/26 0115 DC 11/26 Sodium Succinate IV 11/26 0116 0122 Hydroxychloroquine 200 MG BID 11/23 2200 DC 11/25 Sulfate PO 2106 Ibuprofen 800 MG TID PRN 11/25 1215 DC 11/25 PO 1456 Ipratropium [place] 2.5 ML EVERY 4 HRS/AWAKE 11/24 1200 AC 11/26 INH 0926 Lidocaine 20 ML .STK-MED ONE 11/26 0850 DC IA 11/26 0851 Lorazepam 2 MG ONE ONE 11/26 1215 DC 11/26 IV 11/26 1216 1257 Lorazepam 0.5 MG BID PRN 11/26 1030 AC IV Lorazepam 0.5 MG BID PRN 11/25 1212 DC 11/25 PO 12/02 1211 2158 Magnesium Sulfate 1 GM ONCE ONE 11/26 0130 DC 11/26 Dextrose/Water 100 ML IV 11/26 0229 0300 Methylprednisolone 40 MG Q8 11/26 1400 AC 11/26 IV 1322 Non-Formulary 0 SEE ADMIN CRITERIA 11/26 0915 DC Medication ANY Pantoprazole Sodium 40 MG DAILY 11/26 1032 AC 11/26 IV 1119 Potassium Chloride 10 MEQ Q1H 11/26 0130 DC 11/26 IV 11/26 0331 0553 Prednisone 60 MG DAILY 11/26 1000 DC PO Pregabalin 75 MG BID 11/23 2200 DC 11/25 PO 2106 Propofol 1,000 MG Q3H 11/26 1815 AC 11/26 N/A 100 ML IV 1826 Propofol 1,000 MG Q24H 11/26 0915 DC 11/26 N/A 100 ML IV 0956 Propofol 1,000 MG .STK-MED ONE 11/26 0859 DC IV 11/26 0900 Sodium Chloride 500 ML BOLUS ONE 11/26 0915 DC 11/26 IV 11/26 1014 0957 Sodium Chloride 1,000 ML Q10H 11/26 0915 AC 11/26 IV 1853 Vecuronium [place] 10 MG .STK-MED ONE 11/26 1444 DC IV 11/26 1445 Vecuronium [place] 10 MG ONCE ONE 11/26 0915 DC IV 11/26 0916 Results Last 48 Hrs of Labs/Mics: Laboratory Tests 11/26/16 1600: Procalcitonin Pending 11/26/16 1540: APTT 54 H 11/26/16 1346: Ref Lab Test Result Pending 11/26/16 1135: pH Cancelled, pCO2 Cancelled, pO2 Cancelled, HCO3 Cancelled, ABG O2 Sat ( Measured) Cancelled, P-50 (Temp Corrected) Cancelled, Carboxyhemoglobin Cancelled, O2 Concentration % Cancelled, Temperature Cancelled, O2 Delivery Method Cancelled, Vent Mode Cancelled, Expiratory Pressure Cancelled, Pressure Support Cancelled, Phlebotomy Draw Site Cancelled 11/26/16 0937: pH 7.44, pCO2 36, pO2 214 H, HCO3 23, ABG O2 Sat (Measured) 98.0, Carboxyhemoglobin 0.5 L, O2 Concentration % 100%, Temperature 96.7 L, Respiration Rate 24, O2 Delivery Method VENT, Vent Mode VC-AC, Expiratory Pressure 8, Tidal Volume 500, Phlebotomy Draw Site LEFT RADIAL 11/26/16 0840: Anion Gap 12, Estimated GFR > 60, BUN/Creatinine Ratio 16.7, Magnesium 2.0, CBC w Diff NO MAN DIFF REQ, RBC 3.08 L, MCV 93.2, MCH 31.0, RDW 14.8 H, MPV 7.9, Gran % 92.8 H, Lymphocytes % 3.8 L, Monocytes % 3.3, Eosinophils % 0.1, Basophils % 0 L, Absolute Granulocytes 12.9 H, Absolute Lymphocytes 0.5 L, Absolute Monocytes 0.5, Absolute Eosinophils 0, Absolute Basophils 0, PUBS MCHC 33.2 11/26/16 0313: Lactic Acid 0.8, PT 18.6 H, INR 1.78 H, APTT 62 H 11/26/16 0230: APTT Cancelled 11/26/16 0150: pH 7.52 H, pCO2 28 L, pO2 87, HCO3 23, ABG O2 Sat (Measured) 96.0, P-50 (Temp Corrected) Y, Carboxyhemoglobin 0.3 L, O2 Concentration % 80%, Temperature 99.9 , O2 Delivery Method N/C, Phlebotomy Draw Site RIGHT RADIAL 11/26/16 0050: Anion Gap 14, Estimated GFR 58 L, Glucose 103 H, Lactic Acid 2.5 H, Calcium 8.9, Phosphorus 2.8, Magnesium 1.8, Total Bilirubin 0.6, AST 36, ALT 36, Troponin I < 0.01, Albumin 3.3 L, CBC w Diff MAN DIFF ORDERED, RBC 3.30 L, MCV 93.4, MCH 30.9, RDW 14.6 H, MPV 7.7, Gran % 89.0 H, Lymphocytes % 8.7 L, Monocytes % 0.8 L, Eosinophils % 1.4, Basophils % 0.1, Absolute Granulocytes 9.8 H, Segmented Neutrophils 82 H, Absolute Lymphocytes 1.0 L, Lymphocytes 17 L, Monocytes 1 L, Absolute Monocytes 0.1 L, Absolute Eosinophils 0.2, Absolute Basophils 0, Platelet Estimate ADEQUATE, Polychromasia 1+, Poikilocytosis 1+, Ovalocytes 1+, Stomatocytes FEW, PUBS MCHC 33.1, Fld Total RBCs Counted 100 11/25/16 2345: pH 7.53 H, pCO2 28 L, pO2 53 L, HCO3 22, ABG O2 Sat (Measured) 88.0 L, P-50 (Temp Corrected) Y, Carboxyhemoglobin 0.5 L, O2 Concentration % 50%, Temperature 98.8, O2 Delivery Method V/M, Phlebotomy Draw Site RIGHT RADIAL 11/25/16 2310: Aspergillus Antibody Pending 11/25/16 1850: APTT 45 H 11/25/16 0545: PT 20.9 H, INR 2.00 H 11/25/16 0545: APTT 80 H, CBC w Diff NO MAN DIFF REQ, RBC 3.09 L, MCV 94.1, MCH 31.3 H, RDW 15.0 H, MPV 7.5, Gran % 84.0 H, Lymphocytes % 8.6 L, Monocytes % 7.0, Eosinophils % 0.2, Basophils % 0.2, Absolute Granulocytes 9.0 H, Absolute Lymphocytes 0.9 L, Absolute Monocytes 0.7 H, Absolute Eosinophils 0, Absolute Basophils 0, PUBS MCHC 33.3, ESR Westergren 123 H 11/24/16 2250: APTT 45 H Assessment/Plan Assessment/Plan Assessment: 1. Acute hypoxic respiratory failure with bilateral infiltrates on chest x-ray and CT chest -At the present time, it is difficult to discern the underlying etiology of the patient's current respiratory issues. From a cardiac standpoint, the patient does have underlying bicuspid aortic valve with moderate aortic stenosis and mild to moderate mitral stenosis. The repeat echocardiogram done last night does not show any significant change from the prior echocardiogram of 2014, however, the images were technically limited quality. Nevertheless, the Doppler examination does appear unchanged from previously. The patient's left ventricular function remains normal. She does have significantly elevated gradients across her mitral valve which could represent elevated left atrial pressures. Despite this fact, and the fact that her proBNP is elevated, the patient has multiple other issues including the chest x-ray findings, CAT scan findings, persistent fever despite antibiotics, markedly elevated sedimentation rate, CRP, and the patient history of viral prodrome. The possibility of other issues such as pneumonia in a an immune compromised host, viral pneumonia, underlying inflammatory issues, etc. 2. History of hypertension 3. History of bicuspid aortic valve with aortic stenosis 4. 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 History of prior stroke 6. History of serial positive rheumatoid arthritis 7. Normocytic anemia 8. Markedly elevated sedimentation rate with elevated CRP Recommendations: -For now, I would continue antibiotics pending input from infectious disease -Await rheumatology input -Continue diuresis with IV Lasix. Try to maintain a negative fluid balance of at least 500 mL daily with close monitoring of the patient's blood pressure, heart rate, etc. Avoid overdiuresis if possible -The patient's chest x-ray today does appear slightly worse than the previous chest x-ray. -The patient remains tachycardic, which I suspect is related to the underlying issues. I would recheck an ECG in the AM -Consideration for thoracentesis / bronchoscopy as outlined by pulmonary service -Probable KESHIA in AM Wednesday if patient stable. Continue telemetry? Yes
[2016-11-26 23:19] LABS: PTT 110 SEC (25-37)
[2016-11-27] VITALS: BP 96/70
--- NOTE | 2016-11-27 | NUR ---
PATIENT SEDATED WITH PROPOFOL AT 50 MCG/KG/MIN. FENTANYL AT 50 MCG/KG/HR. ETT TO VENTILATOR AT 65%.SAT=95%.SCANT CLEAR SECRETIONS. IVF AT 100 ML/HR. URINE OUTPUT IN GOOD AMOUNT.HEPARIN DRIP CONTINUES.
[2016-11-27 05:27] LABS: ABSOLUTE BASOPHIL COUNT 0 /CUMM (0.0-0.2); ABSOLUTE EOSINOPHIL COUNT 0 /CUMM (0.0-0.7); ABSOLUTE GRANULOCYTE CT 9.2 /CUMM (1.4-6.5); ABSOLUTE LYMPH COUNT 0.4 /CUMM (1.2-3.4); ABSOLUTE MONOCYTE COUNT 0.3 /CUMM (0.10-0.60); BASOPHIL % 0.1 % (0.0-2.0); EOSINOPHIL % 0 % (0-5); GRANULOCYTE % 93.5 % (42.2-75.2); MEAN CORPUSCULAR HGB CONC 32.8 G/DL (33.0-37.0); MEAN CORPUSCULAR VOLUME 94.3 FL (81.0-99.0); MEAN PLATELET VOLUME 8.1 FL (7.4-10.4); PLATELET COUNT 228 /CUMM (130-400); RBC DISTRIBUTION WIDTH 15.1 % (11.5-14.5); RED BLOOD CELL CT 2.48 /CUMM (4.20-5.40); WHITE BLOOD CELL COUNT 9.8 /CUMM (4.8-10.8)
[2016-11-27 05:41] LABS: HEMATOCRIT 23.4 % (37-47)
--- NOTE | 2016-11-27 07:16 | PN- Resident CRCU ---
Subjective HPI/CRCU Issues: Patient seen and examined this morning. She remains intubated and sedated on IV propofol, Ativan and fentanyl drips. She has been having intermittent desaturations and requiring high levels of FiO2% ranging between 60% and 100%. On mechanical ventilation day #2 with the following current vent settings: AC mode, tidal volume 500, FiO2 100%, RR 18 and PEEP 10. She is hemodynamically stable with good urine output but her blood pressure is borderline with SBP in the 90-100s. She remains afebrile. Objective Vital Signs & I&O Last 8 Hrs of Vitals and I&O: Vital Signs Date Time Temp Pulse Resp B/P Pulse O2 O2 Flow FiO2 Ox Delivery Rate 11/27 1620 90 11/27 1600 96.8 93 18 130/0 100 Ventilator 100% 11/27 1600 100 Ventilator 100% 11/27 1420 100 11/27 1205 100 11/27 1032 100 11/27 0930 75 11/27 0812 60 11/27 0800 96.9 73 24 102/68 95 Ventilator 65% 11/27 0800 95 Ventilator 65% 11/27 0619 65 11/27 0400 97 Ventilator 65% 11/27 0338 65 11/27 0041 65 11/27 0000 95 Ventilator 65% 11/27 0000 96.7 81 24 96/70 95 Ventilator 65% 11/26 2020 65 11/26 2000 96 Ventilator 65% Intake & Output 11/27 1600 Intake Total 1657 Output Total 300 Balance 1357 Intake, IV 1597 Intake, Tube 60 Irrigant Output, Urine 300 Patient 90.718 kg Weight Exam General Appearance: sedated, intubated, obese Head: atraumatic Ears, Nose, Throat: moist mucus membranes Respiratory: crackles scattered throughout bilateral lung verduzco, diminished bibasilar breath sounds Cardiovascular: regular rate/rhythm, normal S1 and S1, grade 3/6 systolic murmur Gastrointestinal: soft, non-tender, positive bowel sounds Extremities: no edema Skin: warm/dry Current Medications: Current Medications Sig/Lico Start time Last Medication Dose Route Stop Time Status Admin Albuterol Sulfate 3 ML EVERY 4 HRS/AWAKE 11/24 1200 AC 11/27 INH 1659 Atovaquone 750 MG BID 11/27 2200 AC PO Atovaquone 750 MG BID 11/26 1455 DC 11/27 PO 11/27 1454 0958 Ceftriaxone Sodium 2,000 MG DAILY 11/26 1000 AC 11/27 IV 0949 Doxycycline Hyclate 100 MG Q12 11/26 1008 AC 11/27 Sodium Chloride 100 ML IV 1013 Fentanyl Citrate 1,000 MCG Q24H 11/26 1645 AC 11/27 Dextrose/Water 250 ML IV 1153 Furosemide 100 MG CONTINOUS INFUSION 11/27 1530 AC 11/27 Sodium Chloride 100 ML IV 1531 Heparin Sodium 25,000 UNIT .STK-MED ONE 11/27 0740 DC (Porcine) IV 11/27 0741 Heparin Sodium 25,000 UNIT Q24H 11/24 1545 AC 11/27 (Porcine) IV 0753 Sodium Chloride 500 ML Ipratropium [place] 2.5 ML EVERY 4 HRS/AWAKE 11/24 1200 AC 11/27 INH 1658 Lorazepam 50 MG Q10H 11/27 2100 AC Sodium Chloride 500 ML IV Lorazepam 1 MG ONCE ONE 11/27 1100 DC IV 11/27 1101 Lorazepam 50 MG Q24H 11/27 1045 AC 11/27 Sodium Chloride 500 ML IV 11/27 2059 1102 Lorazepam 1 MG ONCE ONE 11/27 1000 DC 11/27 IV 11/27 1001 1014 Lorazepam 0.5 MG BID PRN 11/26 1030 AC IV Methylprednisolone 40 MG Q8 11/26 1400 AC 11/27 IV 1411 Pantoprazole Sodium 40 MG DAILY 11/26 1032 AC 11/27 IV 0949 Potassium Chloride 10 MEQ Q1H 11/27 1830 AC 11/27 IV 11/27 1931 1834 Potassium Chloride 10 MEQ ONCE ONE 11/27 0945 DC 11/27 IV 11/27 0946 1307 Potassium Chloride 10 MEQ ONCE ONE 11/27 0845 DC 11/27 IV 11/27 0846 1145 Potassium Chloride 10 MEQ ONCE ONE 11/27 0745 DC 11/27 IV 11/27 0746 0901 Potassium Chloride 20 MEQ ONCE ONE 11/27 0730 CAN IV 11/27 0731 Propofol 1,000 MG Q3H 11/26 1815 DC 11/27 N/A 100 ML IV 1100 Sodium Chloride 250 ML BOLUS ONE 11/27 1115 DC 11/27 IV 11/27 1214 1030 Sodium Chloride 1,000 ML Q10H 11/26 0915 AC 11/27 IV 1713 Vecuronium [place] 50 MG Q24H 11/27 1830 AC Sodium Chloride 500 ML IV Vecuronium [place] 10 MG Q24H 11/27 1445 DC 11/27 Sodium Chloride 100 ML IV 1713 Vecuronium [place] 5 MG ONCE ONE 11/27 1100 DC 11/27 IV 11/27 1101 1055 Results Results: Laboratory Tests 11/27 11/27 11/27 1830 1550 1550 Chemistry Sodium (137 - 145 mmol/L) 140 Potassium (3.5 - 5.1 mmol/L) 3.7 Chloride (98 - 107 mmol/L) 106 Carbon Dioxide (22 - 30 mmol/L) 22 Anion Gap (5 - 16) 11 BUN (7 - 17 mg/dL) 18 H Creatinine (0.5 - 1.0 mg/dL) 0.8 Estimated GFR (>60 ml/min) > 60 Glucose (65 - 99 mg/dL) 147 H Lactic Acid (0.7 - 2.1 mmol/L) Pending 1.4 Calcium (8.4 - 10.2 mg/dL) 9.2 Phosphorus (2.5 - 4.5 mg/dL) 3.6 Magnesium (1.6 - 2.3 mg/dL) 2.6 H Total Bilirubin (0.2 - 1.3 mg/dL) 0.4 AST (14 - 36 U/L) 25 ALT (9 - 52 U/L) 38 Lactate Dehydrogenase (313 - 618 U/L) 1125 H Albumin (3.5 - 5.0 g/dL) 2.9 L Coagulation APTT Pending Hematology CBC w Diff NO MAN DIFF REQ WBC (4.8 - 10.8 /CUMM) 13.6 H RBC (4.20 - 5.40 /CUMM) 2.66 L Hgb (12.0 - 16.0 G/DL) 8.1 L Hct (37 - 47 %) 25.1 L MCV (81.0 - 99.0 FL) 94.6 MCH (27.0 - 31.0 PG) 30.5 RDW (11.5 - 14.5 %) 14.9 H Plt Count (130 - 400 /CUMM) 267 MPV (7.4 - 10.4 FL) 8.0 Gran % (42.2 - 75.2 %) 94.6 H Lymphocytes % (20.5 - 51.1 %) 2.3 L Monocytes % (1.7 - 9.3 %) 3.0 Eosinophils % (0 - 5 %) 0 Basophils % (0.0 - 2.0 %) 0.1 Absolute Granulocytes (1.4 - 6.5 /CUMM) 12.8 H Absolute Lymphocytes (1.2 - 3.4 /CUMM) 0.3 L Absolute Monocytes (0.10 - 0.60 /CUMM) 0.4 Absolute Eosinophils (0.0 - 0.7 /CUMM) 0 Absolute Basophils (0.0 - 0.2 /CUMM) 0 PUBS MCHC (33.0 - 37.0 G/DL) 32.3 L 11/27 11/27 11/27 1532 0630 0530 Blood Gas pH (7.35 - 7.45 PH) 7.50 H pCO2 (35 - 45 TORR) 26 L pO2 (80 - 100 TORR) 87 HCO3 (21 - 28 MEQ/L) 20 L ABG O2 Sat (Measured) (>96.0 %) 96.0 P-50 (Temp Corrected) Y Carboxyhemoglobin (1.5 - 5.0 %) 0.3 L O2 Concentration % 65% Temperature (97.0 - 100.0 FARH) 96.0 L Respiration Rate (BPM) 24 O2 Delivery Method ESPRIT Vent Mode AC Expiratory Pressure (CMH2O/P) 8 Tidal Volume (CC) 500 Chemistry Lactic Acid Cancelled Coagulation APTT (25 - 37 SEC) 75 H Miscellaneous Phlebotomy Draw Site RIGHT BRACHIAL 11/27 11/26 0430 2158 Chemistry Sodium (137 - 145 mmol/L) 141 Potassium (3.5 - 5.1 mmol/L) 3.2 L Chloride (98 - 107 mmol/L) 109 H Carbon Dioxide (22 - 30 mmol/L) 24 Anion Gap (5 - 16) 10 BUN (7 - 17 mg/dL) 17 Creatinine (0.5 - 1.0 mg/dL) 0.7 Estimated GFR (>60 ml/min) > 60 Glucose (65 - 99 mg/dL) 139 H Calcium (8.4 - 10.2 mg/dL) 8.8 Phosphorus (2.5 - 4.5 mg/dL) 3.0 Magnesium (1.6 - 2.3 mg/dL) 2.4 H Total Bilirubin (0.2 - 1.3 mg/dL) 0.4 AST (14 - 36 U/L) 29 ALT (9 - 52 U/L) 51 Albumin (3.5 - 5.0 g/dL) 2.6 L Coagulation APTT (25 - 37 SEC) 110 *H Hematology CBC w Diff NO MAN DIFF REQ WBC (4.8 - 10.8 /CUMM) 9.8 RBC (4.20 - 5.40 /CUMM) 2.48 L Hgb (12.0 - 16.0 G/DL) 7.7 L Hct (37 - 47 %) 23.4 L MCV (81.0 - 99.0 FL) 94.3 MCH (27.0 - 31.0 PG) 31.0 RDW (11.5 - 14.5 %) 15.1 H Plt Count (130 - 400 /CUMM) 228 MPV (7.4 - 10.4 FL) 8.1 Gran % (42.2 - 75.2 %) 93.5 H Lymphocytes % (20.5 - 51.1 %) 3.8 L Monocytes % (1.7 - 9.3 %) 2.6 Eosinophils % (0 - 5 %) 0 Basophils % (0.0 - 2.0 %) 0.1 Absolute Granulocytes (1.4 - 6.5 /CUMM) 9.2 H Absolute Lymphocytes (1.2 - 3.4 /CUMM) 0.4 L Absolute Monocytes (0.10 - 0.60 /CUMM) 0.3 Absolute Eosinophils (0.0 - 0.7 /CUMM) 0 Absolute Basophils (0.0 - 0.2 /CUMM) 0 PUBS MCHC (33.0 - 37.0 G/DL) 32.8 L Bronchoalveolar lavage (11/26/16): AFB smear: negative Bacterial Cx: NGTD Fungal Cx: pending Pneumocystis pneumonia PCR: pending CXR Findings: Improvement in the diffuse patchy bilateral airspace disease, representing pulmonary edema and/or bilateral pneumonia. US Findings: BLE Doppler US: No evidence of deep venous thrombosis in the right or left lower extremity. 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 Currently in critical condition. Remains intubated and sedated. Problem List: 1. Acute hypoxemic respiratory failure 2. 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 History of CVA (cerebrovascular accident) 6. Mitral insufficiency and aortic stenosis 7. Mitral stenosis 8. Severe aortic stenosis Pain Ratin Tomorrow's Labs & Rationales: CBC and ICU bundle (ICU patient) Plan Respiratory: #Acute hypoxemic respiratory failure: Unclear etiology. CT Chest with diffuse bilateral patchy airspace opacities which could reflect pneumonia vs pulmonary edema. On mechanical ventilation day #2 with the following vent settings: AC mode, tidal volume 500, FiO2 100%, RR 18 and PEEP 10. ABG this morning 7.50/26/ 87/20. * Continue mechanical ventilation. * Check CXR daily. Infectious Diseases: #Multilobar pneumona: Remains afebrile. CXR this AM with improved diffuse patchy bilateral airspace disease. S/p bronchoscopy yesterday. Bronchoalveolar lavage bacterial Cx with no growth so far and AFP smear negative. Fungal Cx and PCP PCR pending. * ID following. Appreciate their recs. * Continue doxycycline 100 mg IV BID and ceftriaxone 2 g IV daily. * Continue atovaquone 750 mg PO BID through NG tube for PCP prophylaxis. * Await bronchoscopy results including bacterial, fungal and mycobacterial cultures and PCP PCR. * Follow procalcitonin results. * KESHIA performed today. Await results to rule out infectious endocarditis. Cardiovascular: #Valvular heart disease and possible CHF: Unclear whether cardiac etiology is contributing to current respiratory failure. Although ECHO this admission with normal LV function, patient has elevated left atrial pressures secondary to valvular disease. proBNP is elevated as well which would be consistent with CHF. * Cardiology following. Appreciate their recs. * Continue to monitor strict I/Os. * Continue diuresis with IV Lasix as blood pressures tolerates. * Re-check EKG in the AM as patient remains tachycardic. * Awaiting KESHIA for better evaluation of aortic and mitral valve anatomy and function. Hematology: #Anemia: Anemia most likely chronic. H/H has dropped from 9.5 to 7.7 today. Suspect that this is secondary to hemodilution as all cell lines have dropped. * Re-check CBC in the afternoon. * Monitor H/H and transfuse as needed. #CVA 2/2 cardiac emboli: Was taking warfarin prior to admission. Presented with subtherapeutic INR and started on IV heparin. * Continue IV heparin. Metabolic: Replete electrolytes to K > 4 and Mg > 2. Alimentary: NPO. * Nutrition consult ordered to evaluate patient for tube feeds. * Start tube feeds when patient is clinically more stable. Neurological: Intubated and sedated. * Continue IV sedation for an SAS score of 2. Skin: No issues. DVT/Prophylaxis: mechanical, pharmacological Code Status: Full Code
[2016-11-27 08:00] VITALS: BP 102/68
--- NOTE | 2016-11-27 08:00 | NUR ---
Patient is sedated on a fentanyl gtt infusing at 50mcg, and a propofol gtt infusing at 50mcg/kg/min. SAS ranging from 2-3- responsive to tactile stimuli- able to move all extremities however not able to follow commands. Soft bilateral wrist restraints in place. Pupils are equal and responsive to light. NSR on tele monitor. HR= 70's. SBP: 90-100's with + pulses. Heparin gtt is infusing per protocol. Remains intubated with a #8 to the left at 19cm. Lungs are clear and diminished. Vent settings currently AC: 24/500/35/8. Scant thin white secretions noted when suctioning thru the ETT. Mouth care provided. Abdomen is soft and non tender with + bowel sounds. Remains NPO- OGT in place and is clamped at this time. Scott in place draining clear yellow urine with adequate output. SKin appears intact with no areas of pressure injury noted. NS infusing at 100mls/hr. PTT remains pending. Plan is for a bedside KESHIA with Dr. ramos today at 1100. Receiving potassium boluses per order. Vitals currently stable and no s/s of pain are noted. Will continue to closely monitor patient.
[2016-11-27 08:26] LABS: PTT 75 SEC (25-37)
--- NOTE | 2016-11-27 08:34 | RADIOLOGY REPORT ---
EXAMINATION: XR PORTABLE CHEST CLINICAL INFORMATION: Patient intubated and on a mechanical ventilation. Evaluate for interval changes. COMPARISON: Portable chest 11/26/2016. TECHNIQUE: Portable AP view of the chest was obtained. FINDINGS: The endotracheal tube terminates 4 cm above the damari. A nasogastric tube again terminates in the stomach. There has been improvement in the diffuse patchy airspace disease. IMPRESSION: Improvement in the diffuse patchy bilateral airspace disease, representing pulmonary edema and/or bilateral pneumonia.
--- NOTE | 2016-11-27 09:58 | PN- CRCU ---
Subjective HPI/Critical Care Issues: The patient remains intubated and sedated on propofol and fentanyl. Her oxygenation is slightly improved, however she remains on 60%. She intermittently desaturates. She has been hemodynamically stable. Her temperatures have improved noting her MAXIMUM TEMPERATURE was 99.5 over the past 24 hours. She has excellent urine output. Objective Current Medications: Current Medications Sig/Lico Start time Last Medication Dose Route Stop Time Status Admin Albuterol Sulfate 3 ML EVERY 4 HRS/AWAKE 11/24 1200 AC 11/27 INH 0823 Atorvastatin Calcium 10 MG QPM 11/23 2200 DC 11/25 PO 2145 Atovaquone 750 MG BID 11/26 1455 AC 11/26 PO 11/27 1454 2207 Atovaquone 750 MG BID 11/25 2200 DC 11/25 PO 2107 Bupropion HCl 300 MG QAM 11/23 1939 DC 11/25 PO 0931 Ceftriaxone Sodium 2,000 MG DAILY 11/26 1000 AC 11/26 IV 1001 Dipyridamole/Aspirin 1 CAP BID 11/23 2200 DC 11/25 PO 2106 Doxycycline Hyclate 100 MG Q12 11/26 1008 AC 11/26 Sodium Chloride 100 ML IV 2210 Doxycycline Hyclate 100 MG BID 11/25 1422 DC 11/25 PO 2106 Escitalopram Oxalate 10 MG QPM 11/23 2200 DC 11/25 PO 2106 Famotidine 20 MG BID PRN 11/26 1015 DC IV Famotidine 20 MG TID PRN 11/25 1215 DC 11/25 PO 1456 Fentanyl Citrate 100 MCG .STK-MED ONE 11/26 1814 DC IM 11/26 1815 Fentanyl Citrate 1,000 MCG Q24H 11/26 1645 AC 11/26 Dextrose/Water 250 ML IV 1825 Furosemide 20 MG 7:30 AM, & 4:30 PM 11/24 1815 DC 11/25 IV 1620 Guaifenesin 600 MG Q12 11/23 2200 DC 11/25 PO 2106 Heparin Sodium 3,600 UNIT ONCE ONE 11/26 1730 DC 11/26 (Porcine) IV 11/26 1731 1809 Heparin Sodium 25,000 UNIT Q24H 11/24 1545 AC 11/27 (Porcine) IV 0753 Sodium Chloride 500 ML Hydroxychloroquine 200 MG BID 11/23 2200 DC 11/25 Sulfate PO 210 Ibuprofen 800 MG TID PRN 11/25 1215 DC 11/25 PO 1456 Ipr[address] [place] 2.5 ML EVERY 4 HRS/AWAKE 11/24 1200 AC 11/27 INH 0824 Lorazepam 2 MG ONE ONE 11/26 1215 DC 11/26 IV 11/26 1216 1257 Lorazepam 0.5 MG BID PRN 11/26 1030 AC IV Lorazepam 0.5 MG BID PRN 11/25 1212 DC 11/25 PO 12/02 1211 2158 Methylprednisolone 40 MG Q8 11/26 1400 AC 11/27 IV 0646 Pantoprazole Sodium 40 MG DAILY 11/26 1032 AC 11/26 IV 1119 Potassium Chloride 10 MEQ ONCE ONE 11/27 0945 DC IV 11/27 0946 Potassium Chloride 10 MEQ ONCE ONE 11/27 0845 DC IV 11/27 0846 Potassium Chloride 10 MEQ ONCE ONE 11/27 0745 DC 11/27 IV 11/27 0746 0901 Potassium Chloride 20 MEQ ONCE ONE 11/27 0730 CAN IV 11/27 0731 Prednisone 60 MG DAILY 11/26 1000 DC PO Pregabalin 75 MG BID 11/23 2200 DC 11/25 PO 2106 Propofol 1,000 MG Q3H 11/26 1815 AC 11/27 N/A 100 ML IV 0646 Propofol 1,000 MG .STK-MED ONE 11/26 1304 DC IV 11/26 1305 Propofol 1,000 MG Q24H 11/26 0915 DC 11/26 N/A 100 ML IV 0956 Sodium Chloride 500 ML BOLUS ONE 11/26 0915 DC 11/26 IV 11/26 1014 0957 Sodium Chloride 1,000 ML Q10H 11/26 0915 AC 11/27 IV 0423 Vecuronium [place] 10 MG .STK-MED ONE 11/26 1444 DC IV 11/26 1445 Vital Signs & I&O Last 24 Hrs of Vitals and I&O: Vital Signs Date Time Temp Pulse Resp B/P Pulse O2 O2 Flow FiO2 Ox Delivery Rate 11/27 0812 60 11/27 0619 65 11/27 0400 97 Ventilator 65% 11/27 0338 65 11/27 0041 65 11/27 0000 95 Ventilator 65% 11/27 0000 96.7 81 24 96/70 95 Ventilator 65% 11/26 2020 65 11/26 2000 96 Ventilator 65% 11/26 1905 65 11/26 1626 70 11/26 1600 96 Ventilator 70% 11/26 1600 99.5 86 13 92/64 97 Ventilator 70% 11/26 1400 Ventilator 100% 11/26 1359 80 11/26 1200 99 Ventilator 100% Intake & Output 11/27 1600 11/27 0800 11/27 0000 Intake Total 1438 1809 Output Total 472 390 Balance 966 1419 Intake, IV 1438 1654 Intake, Tube 155 Irrigant Output, Urine 472 390 Physical Exam General Appearance: intubated and sedated Ears, Nose, Throat: moist mucus membranes Respiratory: crackles scattered througout bilateral lung verduzco, diminished bibasilar breath sounds Cardiovascular: regular rate/rhythm, normal S1 and S2, grade 3/6 systolic murmur Gastrointestinal: soft, non-tender, positive bowel sounds Extremities: no edema, warm and dry Results Last 24 Hrs of Lab Results: Laboratory Tests 11/27/16 0630: APTT 75 H 11/27/16 0530: pH 7.50 H, pCO2 26 L, pO2 87, HCO3 20 L, ABG O2 Sat (Measured) 96.0, P-50 ( Temp Corrected) Y, Carboxyhemoglobin 0.3 L, O2 Concentration % 65%, Temperature 96.0 L, Respiration Rate 24, O2 Delivery Method ESPRIT, Vent Mode AC, Expiratory Pressure 8, Tidal Volume 500, Phlebotomy Draw Site RIGHT BRACHIAL 11/27/16 0430: Anion Gap 10, Estimated GFR > 60, Glucose 139 H, Calcium 8.8, Phosphorus 3.0, Magnesium 2.4 H, Total Bilirubin 0.4, AST 29, ALT 51, Albumin 2.6 L, CBC w Diff NO MAN DIFF REQ, RBC 2.48 L, MCV 94.3, MCH 31.0, RDW 15.1 H, MPV 8.1, Gran % 93.5 H, Lymphocytes % 3.8 L, Monocytes % 2.6, Eosinophils % 0, Basophils % 0.1, Absolute Granulocytes 9.2 H, Absolute Lymphocytes 0.4 L, Absolute Monocytes 0.3, Absolute Eosinophils 0, Absolute Basophils 0, PUBS MCHC 32.8 L 11/26/16 2158: APTT 110 *H 11/26/16 1600: Procalcitonin Pending 11/26/16 1540: APTT 54 H 11/26/16 1346: Ref Lab Test Result Pending 11/26/16 1135: pH Cancelled, pCO2 Cancelled, pO2 Cancelled, HCO3 Cancelled, ABG O2 Sat ( Measured) Cancelled, P-50 (Temp Corrected) Cancelled, Carboxyhemoglobin Cancelled, O2 Concentration % Cancelled, Temperature Cancelled, O2 Delivery Method Cancelled, Vent Mode Cancelled, Expiratory Pressure Cancelled, Pressure Support Cancelled, Phlebotomy Draw Site Cancelled Impression/Plan Impression/Plan Impression/Plan: 1. Acute hypoxemic respiratory failure and mediastinal lymphadenopathy, rule out etiology. Differential diagnosis includes an infectious/inflammatory process versus pulmonary edema (less likely per cardiology). 2. Hypokalemia - undergoing repletion. 3. History of bicuspid aortic valve with aortic stenosis. 4. 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 5. Steroid dependent, seronegative rheumatoid arthritis. 6. Normocytic anemia. Recommendations: * Discontinue IV fluids. * Nutrition consult for tube feeds, please start today. * Continue with diuresis to maintain a negative fluid balance at least 500 ML daily. * Monitor blood pressure. Hold diuresis at BP drops. * Follow up culture results from bronchoscopy. * Continue empiric antibiotics including ceftriaxone, doxycycline and Mepron. * Continue IV Solu-Medrol. * Continue fentanyl and propofol for an SAS of 2-3. * Continue IV heparin. * Continue DVT/GI prophylaxis/ventilator bundle. * Await KESHIA - planned for this morning. * The patient remains critically ill and needs ongoing close follow-up.
--- NOTE | 2016-11-27 12:00 | NUR ---
At approx 0815 vent settings were changed to AC: 14/500/60/8 with an O2 sat ranging from 91-94%. At approx 0915- patient began to desaturate to 86-90% her breathing appeared more labored and her respiratory rate increased to the 20's- SAS at this time ranging from 3-4- Dr. Morel at the bedside to evalaute patient with this RN and respiratory. Vent settings changed to AC: 18/500/75/8- fentanyl gtt increased per protocol. O2 sats increasing to 91-94%- patient was also suctioned at this time for scant amounts of white thin secretions. Dr. Lira now at the bedside to confirm plan of a KESHIA at 1100. At approx 1000 patient began to desaturate to 89%- SAS: 3 at this time and fentanyl gtt was increased to 100mcg- Dr. Morel notified and 1mg IVP of ativan given per order- patient continued to desaturate to as low as 87% and vent settings were changed at 1025 to AC 18/500/100/10- Pt also received a 250ml normal saline bolus at this time for a BP of 86/0 with the doppler- BP responded well to bolus and increased back to 90-100's. Plan is to wean patient off of propofol and onto an ativan gtt per Dr. Conde's recommendations- pharmacy was notified of medication changes. At 1045 5mg IV vecuronium given- since O2 sats continued to drop to 87% despite ventilator changes- See ICU flow sheet for details. Patient's O2 sats increased to 96-99%. Dr. Lira now at the bedside for KESHIA- time out sheet completed. Ativan gtt started at 1mg/hr per order- propofol and fentanyl to continue to infuse for procedure- Moderate sedation flow sheet completed.
--- NOTE | 2016-11-27 13:17 | PN- Infect Dx ---
Subjective Subjective: Remains intubated and sedated. Her oxygenation is slightly improved, however she requires increased FiO2 from 60% to 100%. She intermittently desaturates. She has been hemodynamically stable and afebrile. Good urine output. Review of Systems Comments: 10 points reviewed as noted, otherwise negative. Objective Last 24 Hrs of Vital Signs/I&O Vital Signs Date Time Temp Pulse Resp B/P Pulse O2 O2 Flow FiO2 Ox Delivery Rate 11/27 1205 100 11/27 0930 75 11/27 0812 60 11/27 0800 96.9 73 24 102/68 95 Ventilator 65% 11/27 0800 95 Ventilator 65% 11/27 0619 65 11/27 0400 97 Ventilator 65% 11/27 0338 65 11/27 0041 65 11/27 0000 95 Ventilator 65% 11/27 0000 96.7 81 24 96/70 95 Ventilator 65% 11/26 2020 65 11/26 2000 96 Ventilator 65% 11/26 1905 65 11/26 1626 70 11/26 1600 96 Ventilator 70% 11/26 1600 99.5 86 13 92/64 97 Ventilator 70% 11/26 1400 Ventilator 100% 11/26 1359 80 Intake & Output 11/27 1600 11/27 0800 11/27 0000 Intake Total 1438 1809 Output Total 472 390 Balance 966 1419 Intake, IV 1438 1654 Intake, Tube 155 Irrigant Output, Urine 472 390 Patient 200 lb Weight Physical Exam Other Physical Findings: General Appearance Critically ill, intubated Skin No Rashes, N HEENT Atraumatic, ETT in place; OG tube in place Neck Supple, no JVD Cardiovascular Regular Rate, Normal S1, Normal S2, systolic murmur 3/6, best heard LUSB Lungs Decreased breath sounds bilateral lung verduzco. No wheezing. Abdomen Soft, No Tenderness, BS present Neurological sedated Extremities No Clubbing, No Cyanosis Vascular Pulses Symmetrical Results Last 24 Hours of Lab Results: Laboratory Tests 11/27 11/27 0630 0530 Blood Gas pH (7.35 - 7.45 PH) 7.50 H pCO2 (35 - 45 TORR) 26 L pO2 (80 - 100 TORR) 87 HCO3 (21 - 28 MEQ/L) 20 L ABG O2 Sat (Measured) (>96.0 %) 96.0 P-50 (Temp Corrected) Y Carboxyhemoglobin (1.5 - 5.0 %) 0.3 L O2 Concentration % 65% Temperature (97.0 - 100.0 FARH) 96.0 L Respiration Rate (BPM) 24 O2 Delivery Method ESPRIT Vent Mode AC Expiratory Pressure (CMH2O/P) 8 Tidal Volume (CC) 500 Coagulation APTT (25 - 37 SEC) 75 H Miscellaneous Phlebotomy Draw Site RIGHT BRACHIAL 11/27 11/26 11/26 11/26 0430 2158 1600 1540 Chemistry Sodium (137 - 145 mmol/L) 141 Potassium (3.5 - 5.1 mmol/L) 3.2 L Chloride (98 - 107 mmol/L) 109 H Carbon Dioxide (22 - 30 mmol/L) 24 Anion Gap (5 - 16) 10 BUN (7 - 17 mg/dL) 17 Creatinine (0.5 - 1.0 mg/dL) 0.7 Estimated GFR (>60 ml/min) > 60 Glucose (65 - 99 mg/dL) 139 H Calcium (8.4 - 10.2 mg/dL) 8.8 Phosphorus (2.5 - 4.5 mg/dL) 3.0 Magnesium (1.6 - 2.3 mg/dL) 2.4 H Total Bilirubin (0.2 - 1.3 mg/dL) 0.4 AST (14 - 36 U/L) 29 ALT (9 - 52 U/L) 51 Albumin (3.5 - 5.0 g/dL) 2.6 L Procalcitonin Pending Coagulation APTT (25 - 37 SEC) 110 *H 54 H Hematology CBC w Diff NO MAN DIFF REQ WBC (4.8 - 10.8 /CUMM) 9.8 RBC (4.20 - 5.40 /CUMM) 2.48 L Hgb (12.0 - 16.0 G/DL) 7.7 L Hct (37 - 47 %) 23.4 L MCV (81.0 - 99.0 FL) 94.3 MCH (27.0 - 31.0 PG) 31.0 RDW (11.5 - 14.5 %) 15.1 H Plt Count (130 - 400 /CUMM) 228 MPV (7.4 - 10.4 FL) 8.1 Gran % (42.2 - 75.2 %) 93.5 H Lymphocytes % (20.5 - 51.1 %) 3.8 L Monocytes % (1.7 - 9.3 %) 2.6 Eosinophils % (0 - 5 %) 0 Basophils % (0.0 - 2.0 %) 0.1 Absolute Granulocytes (1.4 - 6.5 /CUMM) 9.2 H Absolute Lymphocytes (1.2 - 3.4 /CUMM) 0.4 L Absolute Monocytes (0.10 - 0.60 /CUMM) 0.3 Absolute Eosinophils (0.0 - 0.7 /CUMM) 0 Absolute Basophils (0.0 - 0.2 /CUMM) 0 PUBS MCHC (33.0 - 37.0 G/DL) 32.8 L 11/26 1346 Miscellaneous Ref Lab Test Result Pending Last 24 Hours of Michael Results: SPEC #: [id number] BRIDGETTE: 11/26/161156 STATUS: RES RECD: 11/26/[address] VLAD CR[place] [place] LW RESPINV ENTR: 11/26/[address]: DARREL HERNANDEZ MD SPDESC: BRONCH LAV FREDIS CHU APRN ORDERED: LOW RESP INVAS COMMENT: 10CC BRONCH. LAVAGE / [facility] FOR SEND OUT/ AND CYTOLOGY Procedure Result > GRAM STAIN Final 11/27/16 WHITE BLOOD CELLS MANY SQUAMOUS CELLS NONE OTHER NO ORGANISMS SEEN > LOWER RESPIRATORY CULTURE-O.R. Preliminary 11/27/16 NO GROWTH AFTER 1 DAY SPEC #: [id number] BRIDGETTE: 11/26/16 STATUS: COMP RECD: 11/26/[address]: SAIMA CROOKS, [facility] SOURCE: UPPER RESP ENTR: 11/26/[address]: DARREL HERNANDEZ MD SPDESC: NARES LEFT FREDIS CHU APRN ORDERED: ACT SURV NARES Procedure Result > ACTIVE SURVEILLANCE CULTURE Final 11/27/16 NO METHICILLIN RESISTANT STAPH AUREUS ISOLATED Recent Imaging Studies: SERVICE DATE: 11/27/16050 EXAM TYPE: RAD - XRY-PORTABLE CHEST XRAY EXAMINATION: XR PORTABLE CHEST CLINICAL INFORMATION: Patient intubated and on a mechanical ventilation. Evaluate for interval changes. COMPARISON: Portable chest 11/26/2016. TECHNIQUE: Portable AP view of the chest was obtained. FINDINGS: The endotracheal tube terminates 4 cm above the damari. A nasogastric tube again terminates in the stomach. There has been improvement in the diffuse patchy airspace disease. IMPRESSION: Improvement in the diffuse patchy bilateral airspace disease, representing pulmonary edema and/or bilateral pneumonia. DICTATED BY: HELENE SAENZ MD DATE/TIME DICTATED:11/27/16758 MORTGAGE COORDINATOR:DESTINY DATE/TIME TRANSCRIBED:11/27/16758 Assessment/Plan Impression: 51 year old WF immunocompromised (chronic steroid treatment) with extensive medical history including prior (?embolic) CVA in 2011, HTN, rheumatic heart disease, rheumatoid arthritis, anxiety admitted on 11/23/16. Acute hypoxemic resp failure; CT chest performed revealing also mediastinal VANGIE and bilateral airspace disease with air bronchograms abnormality affects the mid lung zones bilaterally in a fairly symmetric pattern. Multilobar pneumonia; repeat CXR today suggestive of improvement pneumonia; s/p bronchoscopy Elevated ESR (above 100) Abnormal 2 D echo findings); h/o rheumatic heart disease; Suggestion: 1. Continue empiric antibiotic coverage with iv CTX 2 gm daily and po doxycycline 100 mg iv bid. 2. F/U bronch cultures results (bacterial, fungal and mycobacterial). F/u procalcitonin test results. Of note aspergillus antigen test requested not aspergillus antibody; would not reorder test; f/u BAL cultures. 3. Trend BMP, CBC (leukocytosis resolved; worsening anemia). 4. PCP prophylaxis w/ Mepron 750 mg bid via NGT (allergic sulfa drugs). 5. KESHIA to evaluate valves/EF; if findings of infective endocarditis please call.
--- NOTE | 2016-11-27 14:02 | PN- Cardiology ---
Subjective Subjective: Clinically the patient remains about the same. She remains intubated in the ICU. Intermittent desaturations noted. Remains on high level supplemental oxygen. Systolic blood pressure borderline in the 90s Objective Vital Signs and I&Os Vital Signs Date Time Temp Pulse Resp B/P Pulse O2 O2 Flow FiO2 Ox Delivery Rate 11/27 1205 100 11/27 0930 75 11/27 0812 60 11/27 0800 96.9 73 24 102/68 95 Ventilator 65% 11/27 0800 95 Ventilator 65% 11/27 0619 65 11/27 0400 97 Ventilator 65% 11/27 0338 65 11/27 0041 65 11/27 0000 95 Ventilator 65% 11/27 0000 96.7 81 24 96/70 95 Ventilator 65% 11/26 2020 65 11/26 2000 96 Ventilator 65% 11/26 1905 65 11/26 1626 70 11/26 1600 96 Ventilator 70% 11/26 1600 99.5 86 13 92/64 97 Ventilator 70% Intake & Output 11/27 1600 11/27 0800 11/27 0000 11/26 1600 11/26 0800 11/26 0000 Intake Total 1438 1809 1691 688 468 Output Total 472 504 632 7105 800 Balance 966 1419 1341 -562 -332 Intake, IV 1438 1654 1691 688 218 Intake, Oral 0 0 250 Intake, Tube 155 Irrigant Number 0 0 Bowel Movements Output, Urine 472 564 367 6869 800 Patient 200 lb Weight Physical Exam: General Appearance: Alert, Oriented X3, Cooperative, intubated and sedated Skin: Normal HEENT: Atraummatic Neck: Supple, JVP normal Cardiovascular: Regular Rate, slightly tachycardic Normal S1, Normal S2, 3/6 systolic ejection murmur Lungs: bilateral rhonchi with decreased breath sounds Abdomen: Normal Bowel Sounds, Soft, No Tenderness Neurological: Normal Speech, Normal Tone Extremities: No Edema, Normal Pulses Vascular: Normal Pulses, Pulses Symmetrical Current Medications: Current Medications Sig/Lico Start time Last Medication Dose Route Stop Time Status Admin Albuterol Sulfate 3 ML EVERY 4 HRS/AWAKE 11/24 1200 AC 11/27 INH 1219 Atovaquone 750 MG BID 11/26 1455 AC 11/27 PO 11/27 1454 0958 Ceftriaxone Sodium 2,000 MG DAILY 11/26 1000 AC 11/27 IV 0949 Doxycycline Hyclate 100 MG Q12 11/26 1008 AC 11/27 Sodium Chloride 100 ML IV 1013 Fentanyl Citrate 100 MCG .STK-MED ONE 11/26 1814 DC IM 11/26 1815 Fentanyl Citrate 1,000 MCG Q24H 11/26 1645 AC 11/27 Dextrose/Water 250 ML IV 1153 Heparin Sodium 3,600 UNIT ONCE ONE 11/26 1730 DC 11/26 (Porcine) IV 11/26 1731 1809 Heparin Sodium 25,000 UNIT Q24H 11/24 1545 AC 11/27 (Porcine) IV 0753 Sodium Chloride 500 ML Ipratropium [place] 2.5 ML EVERY 4 HRS/AWAKE 11/24 1200 AC 11/27 INH 1219 Lorazepam 1 MG ONCE ONE 11/27 1100 DC IV 11/27 1101 Lorazepam 50 MG Q24H 11/27 1045 AC 11/27 Sodium Chloride 500 ML IV 1102 Lorazepam 1 MG ONCE ONE 11/27 1000 DC 11/27 IV 11/27 1001 1014 Lorazepam 0.5 MG BID PRN 11/26 1030 AC IV Methylprednisolone 40 MG Q8 11/26 1400 AC 11/27 IV 0646 Pantoprazole Sodium 40 MG DAILY 11/26 1032 AC 11/27 IV 0949 Potassium Chloride 10 MEQ ONCE ONE 11/27 0945 DC 11/27 IV 11/27 0946 1307 Potassium Chloride 10 MEQ ONCE ONE 11/27 0845 DC 11/27 IV 11/27 0846 1145 Potassium Chloride 10 MEQ ONCE ONE 11/27 0745 DC 11/27 IV 11/27 0746 0901 Potassium Chloride 20 MEQ ONCE ONE 11/27 0730 CAN IV 11/27 0731 Propofol 1,000 MG Q3H 11/26 1815 AC 11/27 N/A 100 ML IV 1100 Propofol 1,000 MG Q24H 11/26 0915 DC 11/26 N/A 100 ML IV 0956 Sodium Chloride 250 ML BOLUS ONE 11/27 1115 DC 11/27 IV 11/27 1214 1030 Sodium Chloride 1,000 ML Q10H 11/26 0915 AC 11/27 IV 0423 Vecuronium [place] 5 MG ONCE ONE 11/27 1100 DC 11/27 IV 11/27 1101 1055 Vecuronium [place] 10 MG .STK-MED ONE 11/26 1444 DC IV 11/26 1445 Results Last 48 Hrs of Labs/Mics: Laboratory Tests 11/27/16 0630: APTT 75 H 11/27/16 0530: pH 7.50 H, pCO2 26 L, pO2 87, HCO3 20 L, ABG O2 Sat (Measured) 96.0, P-50 ( Temp Corrected) Y, Carboxyhemoglobin 0.3 L, O2 Concentration % 65%, Temperature 96.0 L, Respiration Rate 24, O2 Delivery Method ESPRIT, Vent Mode AC, Expiratory Pressure 8, Tidal Volume 500, Phlebotomy Draw Site RIGHT BRACHIAL 11/27/16 0430: Anion Gap 10, Estimated GFR > 60, Glucose 139 H, Calcium 8.8, Phosphorus 3.0, Magnesium 2.4 H, Total Bilirubin 0.4, AST 29, ALT 51, Albumin 2.6 L, CBC w Diff NO MAN DIFF REQ, RBC 2.48 L, MCV 94.3, MCH 31.0, RDW 15.1 H, MPV 8.1, Gran % 93.5 H, Lymphocytes % 3.8 L, Monocytes % 2.6, Eosinophils % 0, Basophils % 0.1, Absolute Granulocytes 9.2 H, Absolute Lymphocytes 0.4 L, Absolute Monocytes 0.3, Absolute Eosinophils 0, Absolute Basophils 0, PUBS MCHC 32.8 L 11/26/16 2158: APTT 110 *H 11/26/16 1600: Procalcitonin Pending 11/26/16 1540: APTT 54 H 11/26/16 1346: Ref Lab Test Result Pending 11/26/16 1135: pH Cancelled, pCO2 Cancelled, pO2 Cancelled, HCO3 Cancelled, ABG O2 Sat ( Measured) Cancelled, P-50 (Temp Corrected) Cancelled, Carboxyhemoglobin Cancelled, O2 Concentration % Cancelled, Temperature Cancelled, O2 Delivery Method Cancelled, Vent Mode Cancelled, Expiratory Pressure Cancelled, Pressure Support Cancelled, Phlebotomy Draw Site Cancelled 11/26/16 0937: pH 7.44, pCO2 36, pO2 214 H, HCO3 23, ABG O2 Sat (Measured) 98.0, Carboxyhemoglobin 0.5 L, O2 Concentration % 100%, Temperature 96.7 L, Respiration Rate 24, O2 Delivery Method VENT, Vent Mode VC-AC, Expiratory Pressure 8, Tidal Volume 500, Phlebotomy Draw Site LEFT RADIAL 11/26/16 0840: Anion Gap 12, Estimated GFR > 60, BUN/Creatinine Ratio 16.7, Magnesium 2.0, CBC w Diff NO MAN DIFF REQ, RBC 3.08 L, MCV 93.2, MCH 31.0, RDW 14.8 H, MPV 7.9, Gran % 92.8 H, Lymphocytes % 3.8 L, Monocytes % 3.3, Eosinophils % 0.1, Basophils % 0 L, Absolute Granulocytes 12.9 H, Absolute Lymphocytes 0.5 L, Absolute Monocytes 0.5, Absolute Eosinophils 0, Absolute Basophils 0, PUBS MCHC 33.2 11/26/16 0313: Lactic Acid 0.8, PT 18.6 H, INR 1.78 H, APTT 62 H 11/26/16 0230: APTT Cancelled 11/26/16 0150: pH 7.52 H, pCO2 28 L, pO2 87, HCO3 23, ABG O2 Sat (Measured) 96.0, P-50 (Temp Corrected) Y, Carboxyhemoglobin 0.3 L, O2 Concentration % 80%, Temperature 99.9 , O2 Delivery Method N/C, Phlebotomy Draw Site RIGHT RADIAL 11/26/16 0050: Anion Gap 14, Estimated GFR 58 L, Glucose 103 H, Lactic Acid 2.5 H, Calcium 8.9, Phosphorus 2.8, Magnesium 1.8, Total Bilirubin 0.6, AST 36, ALT 36, Troponin I < 0.01, Albumin 3.3 L, CBC w Diff MAN DIFF ORDERED, RBC 3.30 L, MCV 93.4, MCH 30.9, RDW 14.6 H, MPV 7.7, Gran % 89.0 H, Lymphocytes % 8.7 L, Monocytes % 0.8 L, Eosinophils % 1.4, Basophils % 0.1, Absolute Granulocytes 9.8 H, Segmented Neutrophils 82 H, Absolute Lymphocytes 1.0 L, Lymphocytes 17 L, Monocytes 1 L, Absolute Monocytes 0.1 L, Absolute Eosinophils 0.2, Absolute Basophils 0, Platelet Estimate ADEQUATE, Polychromasia 1+, Poikilocytosis 1+, Ovalocytes 1+, Stomatocytes FEW, PUBS MCHC 33.1, Fld Total RBCs Counted 100 11/25/16 2345: pH 7.53 H, pCO2 28 L, pO2 53 L, HCO3 22, ABG O2 Sat (Measured) 88.0 L, P-50 (Temp Corrected) Y, Carboxyhemoglobin 0.5 L, O2 Concentration % 50%, Temperature 98.8, O2 Delivery Method V/M, Phlebotomy Draw Site RIGHT RADIAL 11/25/16 2310: Aspergillus Antibody Pending 11/25/16 1850: APTT 45 H Microbiology 11/26 0110 GI: Surveillance Culture - COMP 11/26 0047 UPPER RESP: Surveillance Culture - COMP Assessment/Plan Assessment/Plan Assessment: 1. Acute hypoxic respiratory failure with bilateral infiltrates on chest x-ray and CT chest -At the present time, it is difficult to discern the underlying etiology of the patient's current respiratory issues. From a cardiac standpoint, the patient does have underlying bicuspid aortic valve with severe aortic stenosis and mild mitral stenosis with mild mitral insufficiency. The repeat echocardiogram done last night does not show any significant change from the prior echocardiogram of 2014, however, the images were technically limited quality. A KESHIA was performed today at the bedside in the ICU. This showed evidence of a bicuspid aortic valve with severe aortic stenosis. The valve area is approximately 0.9 cm. In addition she continues to have mild mitral stenosis, likely rheumatic in nature with mild mitral insufficiency. Her left ventricular function remains normal. Despite this fact, and the fact that her proBNP is elevated, the patient has multiple other issues including the chest x-ray findings, CAT scan findings, persistent intermittent fever despite antibiotics, markedly elevated sedimentation rate, CRP, and the history of viral prodrome. The possibility of other issues such as pneumonia in a an immune compromised host, viral pneumonia, underlying inflammatory issues, etc also in the differential. 2. History of hypertension 3. History of bicuspid aortic valve with aortic stenosis 4. 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 History of prior stroke 6. History of serial positive rheumatoid arthritis 7. Normocytic anemia 8. Markedly elevated sedimentation rate with elevated CRP Recommendations: -For now, I would continue all current supportive care -Rheumatology input noted -Continue diuresis with IV Lasix when possible as tolerated by the patient's blood pressure. -The patient remains tachycardic, which I suspect is related to the underlying issues. I would recheck an ECG in the AM -Continue as per the pulmonary/critical care service. -I discussed the results of the KESHIA with the patient's . I'll also discuss them with Dr. Morel and Dr. Carney. -At some point, if the patient fails to improve despite all other supportive measures, consideration for cardiac catheterization to assess aortic stenosis, etc. Continue telemetry? Yes
--- NOTE | 2016-11-27 15:11 | ULTRASOUND REPORT ---
EXAMINATION: BILATERAL LOWER EXTREMITY VENOUS ULTRASOUND CLINICAL INFORMATION: Hypoxemia. Evaluate for DVT. Patient is intubated and immobilized. COMPARISON: None TECHNIQUE: Doppler spectral analysis and color flow Doppler imaging was performed of the lower extremities. Compression and augmentation maneuvers were performed. FINDINGS: The right and left common femoral vein, greater saphenous vein takeoff, femoral vein, and popliteal vein are normally compressible with normal augmentation responses and phasic changes seen with Doppler imaging. The midcalf peroneal and posterior tibial veins are patent as well. No popliteal cyst is seen. IMPRESSION: No evidence of deep venous thrombosis in the right or left lower extremity.
[2016-11-27 16:00] VITALS: BP 130/0
[2016-11-27 16:41] LABS: ABSOLUTE BASOPHIL COUNT 0 /CUMM (0.0-0.2); ABSOLUTE EOSINOPHIL COUNT 0 /CUMM (0.0-0.7); ABSOLUTE GRANULOCYTE CT 12.8 /CUMM (1.4-6.5); ABSOLUTE LYMPH COUNT 0.3 /CUMM (1.2-3.4); ABSOLUTE MONOCYTE COUNT 0.4 /CUMM (0.10-0.60); BASOPHIL % 0.1 % (0.0-2.0); EOSINOPHIL % 0 % (0-5); HEMATOCRIT 25.1 % (37-47); MEAN CORPUSCULAR HGB 30.5 PG (27.0-31.0); MEAN CORPUSCULAR HGB CONC 32.3 G/DL (33.0-37.0); MEAN CORPUSCULAR VOLUME 94.6 FL (81.0-99.0); PLATELET COUNT 267 /CUMM (130-400); RBC DISTRIBUTION WIDTH 14.9 % (11.5-14.5); RED BLOOD CELL CT 2.66 /CUMM (4.20-5.40); WHITE BLOOD CELL COUNT 13.6 /CUMM (4.8-10.8)
[2016-11-27 16:58] LABS: GRANULOCYTE % 94.6 % (42.2-75.2)
--- NOTE | 2016-11-27 18:45 | NUR ---
Patient is paralyzed on a vecuronium gtt at 0.05mg/kg/hr- SAS-1, Ativan gtt infusing at 5mg/hr and fentanyl @ 100mcg/kg. TOF 2/4- and BIS monitor ranging from 40-50. Wrist restraints d/c at 1600- NSR on tele monitor, HR= 80-90's. SBP: 100's, heparin gtt continues to infused per protocol and a ptt was drawn at 1830- A lasix gtt was started at 3mg/hr per Dr. Morel's order. Remains intubated with a #8 to the right at 19cm- Vent settings currently AC 18/500/80/10- lungs clear and diminished. O2 sats have remained stable ranging from 95-99% with no further episodes where she would desaturate. OGT remains in place and is clamped. Abdomen is soft and non tender with + bowel sounds. Scott draining clear yellow urine with approx 100mls/hr since lasix gtt started, Skin remains intact. No areas of pressure injury are currently noted. NS continues to infuse at 100ml/hr- patient receiving potassium boluses per order. Vitals currently stable- Will continue to closely monitor patient.
--- NOTE | 2016-11-27 19:51 | NUR ---
At approx 1345- patient's O2 sat noted to be 86% she was suctioned at this time and O2 sats increased to 91-95%. Propofol and Ativan gtt's continue to be titrated per orders- See ICU flowsheet- Patient continued to have events where oxygen saturation would drop as low as 86% and remained in the high 80's despite suctioning and lavage by respiratory- Vent settings remain AC:18/500/100/10- Dr. Conde notified and patient was started on a vecuronium gtt was 1500 at 0.05mg/kg/hr with a goal TOF 2/4- see ICU flow sheet for details. BIS monitor was obtained with a goal of 40-60- Propofol gtt was d/c at 1515- and ativan gtt now infusing at 5mg/hr. Repeat labs drawn- Vitals are currently stable. No s/s of pain are noted.
[2016-11-27 20:09] LABS: PTT 70 SEC (25-37)
[2016-11-28] VITALS: BP 112/70
--- NOTE | 2016-11-28 | NUR ---
PATIENT IS SEDATED ON ATIVAN DRIP AT 5 MG/HR AND FENTANYL DRIP AT 100 MCG/HR. BISS MONITOR 43.VECURONION DRIP DECREASED TO 0.04MG/KG/HR DUE TO 1/4 ON TOF. ETT TUBE TO VENTILATOR AT 60%.SAT=98%.LUNG SOUNDS CLEAR. MONITOR SR AT 83. LASIX DRIP AT 3 MG/HR.URINE OUTPUT 180 ML LAST HOUR.TURNED AND POSITIONED WITH HOB ELEVATED.
[2016-11-28 06:12] LABS: ABSOLUTE BASOPHIL COUNT 0.2 /CUMM (0.0-0.2); ABSOLUTE EOSINOPHIL COUNT 0 /CUMM (0.0-0.7); ABSOLUTE GRANULOCYTE CT 12.6 /CUMM (1.4-6.5); ABSOLUTE LYMPH COUNT 0.3 /CUMM (1.2-3.4); ABSOLUTE MONOCYTE COUNT 0.3 /CUMM (0.10-0.60); BASOPHIL % 1.2 % (0.0-2.0); EOSINOPHIL % 0 % (0-5); HEMATOCRIT 23.5 % (37-47); MEAN CORPUSCULAR HGB 30.4 PG (27.0-31.0); MEAN CORPUSCULAR HGB CONC 32.2 G/DL (33.0-37.0); MEAN CORPUSCULAR VOLUME 94.4 FL (81.0-99.0); MEAN PLATELET VOLUME 7.8 FL (7.4-10.4); PLATELET COUNT 262 /CUMM (130-400); RBC DISTRIBUTION WIDTH 15.4 % (11.5-14.5); RED BLOOD CELL CT 2.49 /CUMM (4.20-5.40)
[2016-11-28 06:27] LABS: PTT 73 SEC (25-37)
[2016-11-28 06:38] LABS: WHITE BLOOD CELL COUNT 13.4 /CUMM (4.8-10.8)
--- NOTE | 2016-11-28 07:09 | RADIOLOGY REPORT ---
EXAMINATION: XR PORTABLE CHEST CLINICAL INFORMATION: Intubated. Mechanical ventilation. Evaluate for interval change COMPARISON: 11/27/16 TECHNIQUE: Portable frontal view of the chest was obtained. FINDINGS: The upper chest is excluded. Technical factors limit assessment. Monitoring devices overlie the patient. The endotracheal tube tip projects approximately 5 cm above the damari. There is an enteric tube which is partially visualized. A segment of the enteric tube is present in the left upper quadrant. There is no mediastinal mass. The left hilum is obscured. There is no right hilar mass. There is diffuse hazy density throughout most of the left hemithorax which appears worsened. There is probable edema in the right lung. No definite pneumothorax IMPRESSION: Limited study. Apparent interval worsening aeration left chest. I would have a low threshold for repeat
[2016-11-28 08:00] VITALS: BP 109/69
--- NOTE | 2016-11-28 08:17 | PN- Resident CRCU ---
Subjective HPI/CRCU Issues: Patient seen and examined this morning. She remains intubated, sedated and paralyzed on IV Ativan, fentanyl and vecuronium drips, however her oxygenation is much improved with IV Lasix drip. KESHIA was performed yesterday which showed severe aortic stenosis and mild mitral stenosis. On mechanical ventilation day # 3 with the following current vent settings: AC mode, tidal volume 500, FiO2 50%, RR 18 and PEEP 5. She remains afebrile and hemodynamically stable. Objective Vital Signs & I&O Last 8 Hrs of Vitals and I&O: Vital Signs Date Time Temp Pulse Resp B/P Pulse O2 O2 Flow FiO2 Ox Delivery Rate 11/28 1616 97.6 94 18 97/64 96 Ventilator 50% 11/28 1600 93 Ventilator 50% 11/28 1555 50 11/28 1356 50 11/28 1200 94 Ventilator 50% 11/28 1140 50 / 0951 40 /18 0806 50 11/28 0800 100 Ventilator 60% 11/28 0800 97.7 87 17 109/69 100 Ventilator 60% 11/28 0606 60 11/28 0400 98 Ventilator 60% 11/28 0243 60 11/28 0036 60 11/28 0000 98.0 83 18 112/70 98 Ventilator 60% 11/28 0000 98 Ventilator 60% 11/27 2218 60 11/27 2000 99 Ventilator 65% 11/27 1920 65 Intake & Output 11/28 1600 Intake Total 2346.2 Output Total 850 Balance 1496.2 Intake, IV 1881.2 Intake, Oral 0 Intake, Tube 75 Feeding Intake, Tube 390 Irrigant Output, Urine 850 Exam General Appearance: sedated, intubated, obese Head: atraumatic, normal appearance Respiratory: crackles scattered throughout bilateral lung verduzco Cardiovascular: regular rate/rhythm, normal S1 and S2, grade 3/6 systolic murmur Gastrointestinal: soft, non-tender, positive bowel sounds Extremities: no edema Skin: warm/dry Current Medications: Current Medications Sig/Lico Start time Last Medication Dose Route Stop Time Status Admin Albuterol Sulfate 3 ML EVERY 4 HRS/AWAKE 11/24 1200 AC 11/28 INH 1559 Atovaquone 750 MG BID 11/27 2200 AC 11/28 PO 1003 Ceftriaxone Sodium 2,000 MG DAILY 11/26 1000 AC 11/28 IV 0903 Doxycycline Hyclate 100 MG Q12 11/26 1008 AC 11/28 Sodium Chloride 100 ML IV 0903 Fentanyl Citrate 1,000 MCG Q24H 11/26 1645 AC 11/27 Dextrose/Water 250 ML IV 2337 Furosemide 100 MG CONTINOUS INFUSION 11/27 1530 AC 11/27 Sodium Chloride 100 ML IV 1531 Heparin Sodium 25,000 UNIT Q24H 11/24 1545 AC 11/27 (Porcine) IV 2357 Sodium Chloride 500 ML Ipratropium [place] 2.5 ML EVERY 4 HRS/AWAKE 11/24 1200 AC 11/28 INH 1559 Lorazepam 50 MG Q10H 11/27 2100 AC 11/28 Sodium Chloride 500 ML IV 1003 Lorazepam 50 MG Q24H 11/27 1045 DC 11/27 Sodium Chloride 500 ML IV 11/27 2059 1102 Lorazepam 0.5 MG BID PRN 11/26 1030 AC IV Magnesium Sulfate 1 GM Q2H 11/28 0845 DC 11/28 Dextrose/Water 100 ML IV 11/28 1244 1003 Magnesium Sulfate 1 GM ONCE ONE 11/28 0845 CAN Dextrose/Water 100 ML IV 11/28 1244 Methylprednisolone 40 MG Q8 11/26 1400 AC 11/28 IV 1332 Pantoprazole Sodium 40 MG DAILY 11/26 1032 AC 11/28 IV 0903 Polyethylene Glycol 17 GM DAILY 11/28 1000 AC 11/28 PO 1113 Potassium Chloride 10 MEQ ONCE ONE 11/28 1030 DC 11/28 IV 11/28 1031 1022 Potassium Chloride 10 MEQ ONCE ONE 11/28 1030 DC 11/28 IV 11/28 1031 1022 Potassium Chloride 10 MEQ ONCE ONE 11/28 0845 DC 11/28 IV 11/28 0846 0850 Potassium Chloride 10 MEQ Q1H 11/27 1830 DC 11/27 IV 11/27 1931 1943 Senna/Docusate Sodium 1 TAB BID 11/28 1000 AC 11/28 PO 1113 Sodium Chloride 1,000 ML Q10H 11/26 0915 AC 11/28 IV 1023 Vecuronium [place] 50 MG Q24H 11/27 1830 DC 11/28 Sodium Chloride 500 ML IV 1004 Vecuronium [place] 10 MG Q24H 11/27 1445 DC 11/27 Sodium Chloride 100 ML IV 1713 Results Results: Laboratory Tests 11/28 11/27 0600 1830 Chemistry Sodium (137 - 145 mmol/L) 140 Potassium (3.5 - 5.1 mmol/L) 3.3 L Chloride (98 - 107 mmol/L) 107 Carbon Dioxide (22 - 30 mmol/L) 23 Anion Gap (5 - 16) 10 BUN (7 - 17 mg/dL) 19 H Creatinine (0.5 - 1.0 mg/dL) 0.8 Estimated GFR (>60 ml/min) > 60 Glucose (65 - 99 mg/dL) 184 H Lactic Acid (0.7 - 2.1 mmol/L) 1.6 Calcium (8.4 - 10.2 mg/dL) 8.5 Phosphorus (2.5 - 4.5 mg/dL) 3.3 Magnesium (1.6 - 2.3 mg/dL) 2.3 Total Bilirubin (0.2 - 1.3 mg/dL) 0.3 AST (14 - 36 U/L) 15 ALT (9 - 52 U/L) 33 Albumin (3.5 - 5.0 g/dL) 2.6 L Coagulation APTT (25 - 37 SEC) 73 H 70 H Hematology CBC w Diff NO MAN DIFF REQ WBC (4.8 - 10.8 /CUMM) 13.4 H RBC (4.20 - 5.40 /CUMM) 2.49 L Hgb (12.0 - 16.0 G/DL) 7.6 L Hct (37 - 47 %) 23.5 L MCV (81.0 - 99.0 FL) 94.4 MCH (27.0 - 31.0 PG) 30.4 RDW (11.5 - 14.5 %) 15.4 H Plt Count (130 - 400 /CUMM) 262 MPV (7.4 - 10.4 FL) 7.8 Gran % (42.2 - 75.2 %) 94.0 H Lymphocytes % (20.5 - 51.1 %) 2.5 L Monocytes % (1.7 - 9.3 %) 2.3 Eosinophils % (0 - 5 %) 0 Basophils % (0.0 - 2.0 %) 1.2 Absolute Granulocytes (1.4 - 6.5 /CUMM) 12.6 H Absolute Lymphocytes (1.2 - 3.4 /CUMM) 0.3 L Absolute Monocytes (0.10 - 0.60 /CUMM) 0.3 Absolute Eosinophils (0.0 - 0.7 /CUMM) 0 Absolute Basophils (0.0 - 0.2 /CUMM) 0.2 PUBS MCHC (33.0 - 37.0 G/DL) 32.2 L CXR Findings: Persistent interstitial opacities which are compatible with pulmonary edema but could also reflect infectious process. There has been mild improvement from prior. Associated bibasilar opacities, left greater than right side similar to prior. 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 Remains intubated and sedated. Problem List: 1. Severe aortic stenosis 2. Rheumatic fever with cardiac involvement 3. History of CVA (cerebrovascular accident) 4. Anemia 5. Acute hypoxemic respiratory failure 6. CHF (congestive heart failure) 7. Hypokalemia Pain Ratin Tomorrow's Labs & Rationales: CBC and ICU bundle (intubated patient) LDH due to concern for PCP Plan Respiratory: #Acute hypoxemic respiratory failure: On mechanical ventilation day #3 with the following vent settings: AC mode, tidal volume 500, FiO2 50%, RR 18 and PEEP 5. ABG this morning 7.50///20. Significantly improved from a respiratory perspective, with decreasing oxygen requirement and PEEP. CXR improved from yesterday. * Continue mechanical ventilation. * Check CXR daily. * Continue Solumedrol 40 mg IV Q8H. * Continue to taper down FiO2 and PEEP as tolerated. Infectious Diseases: #Probable multilobar pneumona: Remains afebrile. Mild leukocytosis has persisted. Infectious work-up negative so far. Bronchoalveolar lavage bacterial Cx with no growth so far and AFP smear negative. Fungal Cx and PCP PCR pending. Procalcitonin (1.17, ref range: <0.10) and LDH (1125, ref range: 313-618) elevated but per ID, PCP is unlikely in the presence of bilateral pleural effusions as PCP almost never manifests with pleural effusions. KESHIA with no evidence of infective endocarditis. * ID following. Appreciate their recs. * Continue empiric antibiotic coverage with doxycycline 100 mg IV BID and ceftriaxone 2 g IV daily for a total of 7 days (11/24-11/30). * Continue atovaquone 750 mg PO BID through NG tube for PCP prophylaxis. * Await bronchoscopy results including bacterial, fungal and mycobacterial cultures and PCP PCR. * Trend LDH. Cardiovascular: #Suspected CHF 2/2 severe aortic stenosis: [place] to be most likely etiology for the acute hypoxemic respiratory failure at this point, given significant improvement after starting IV Lasix, significant valvular heart disease and the negative infectious work-up so far. KESHIA performed yesterday confirmed severe aortic stenosis and mild mitral stenosis. Remains on IV Lasix with excellent diuresis. * Cardiology following. Appreciate their recs. * Continue to monitor strict I/Os. * Continue IV Lasix drip. * Continue to monitor BP closely. * Will most likely need cardiac catheterization and probably aortic valve replacement per cardiology. Hematology: #Anemia: Anemia most likely chronic. H/H has dropped from 8.1/25.1 from 7.6/23.5 today. * Re-check CBC in the evening and consider transfusing if H/H drops further. #CVA 2/2 cardiac emboli: Was taking warfarin prior to admission. Presented with subtherapeutic INR and was started on IV heparin. * Continue IV heparin. Metabolic: Replete electrolytes to K > 4 and Mg > 2. Alimentary: S/p nutrition consult. Start tube feeds per their recs. Neurological: Intubated, sedated and paralyzed on IV Ativan, fentanyl and vecuronium drips. * Start reducing sedation as tolerated with the hope of extubation. Discontinue vecuronium drip and taper down Ativan. Skin: No issues. DVT/Prophylaxis: mechanical, pharmacological Code Status: Full Code
--- NOTE | 2016-11-28 10:21 | PN- Pulmonary ---
Subjective HPI/Critical Care Issues: Patient remains sedated and paralyzed restaurant status is markedly improved with improved oxygenation and tapering FiO2 and PEEP. All cultures remain negative. Objective Current Medications: Current Medications Sig/Lico Start time Last Medication Dose Route Stop Time Status Admin Albuterol Sulfate 3 ML EVERY 4 HRS/AWAKE 11/24 1200 AC 11/28 INH 0806 Atovaquone 750 MG BID 11/27 2200 AC 11/28 PO 1003 Atovaquone 750 MG BID 11/26 1455 DC 11/27 PO 11/27 1454 0958 Ceftriaxone Sodium 2,000 MG DAILY 11/26 1000 AC 11/28 IV 0903 Doxycycline Hyclate 100 MG Q12 11/26 1008 AC 11/28 Sodium Chloride 100 ML IV 0903 Fentanyl Citrate 1,000 MCG Q24H 11/26 1645 AC 11/27 Dextrose/Water 250 ML IV 2337 Furosemide 100 MG CONTINOUS INFUSION 11/27 1530 AC 11/27 Sodium Chloride 100 ML IV 1531 Furosemide 20 MG .STK-MED ONE 11/27 1520 DC IV 11/27 1521 Furosemide 80 MG .STK-MED ONE 11/27 1520 DC IV 11/27 1521 Heparin Sodium 25,000 UNIT Q24H 11/24 1545 AC 11/27 (Porcine) IV 2357 Sodium Chloride 500 ML Ipratropium [place] 2.5 ML EVERY 4 HRS/AWAKE 11/24 1200 AC 11/28 INH 0805 Lorazepam 50 MG Q10H 11/27 2100 AC 11/28 Sodium Chloride 500 ML IV 1003 Lorazepam 1 MG ONCE ONE 11/27 1100 DC IV 11/27 1101 Lorazepam 50 MG Q24H 11/27 1045 DC 11/27 Sodium Chloride 500 ML IV 11/27 2059 1102 Lorazepam 0.5 MG BID PRN 11/26 1030 AC IV Magnesium Sulfate 1 GM Q2H 11/28 0845 AC 11/28 Dextrose/Water 100 ML IV 11/28 1244 1003 Magnesium Sulfate 1 GM ONCE ONE 11/28 0845 CAN Dextrose/Water 100 ML IV 11/28 1244 Methylprednisolone 40 MG Q8 11/26 1400 AC 11/28 IV 0614 Pantoprazole Sodium 40 MG DAILY 11/26 1032 AC 11/28 IV 0903 Polyethylene Glycol 17 GM DAILY 11/28 1000 AC PO Potassium Chloride 10 MEQ ONCE ONE 11/28 0845 DC 11/28 IV 11/28 0846 0850 Potassium Chloride 10 MEQ Q1H 11/27 1830 DC 11/27 IV 11/27 1931 1943 Propofol 1,000 MG Q3H 11/26 1815 DC 11/27 N/A 100 ML IV 1100 Senna/Docusate Sodium 1 TAB BID 11/28 1000 AC PO Sodium Chloride 250 ML BOLUS ONE 11/27 1115 DC 11/27 IV 11/27 1214 1030 Sodium Chloride 1,000 ML Q10H 11/26 0915 AC 11/28 IV 0651 Vecuronium [place] 50 MG Q24H 11/27 1830 AC 11/28 Sodium Chloride 500 ML IV 1004 Vecuronium [place] 10 MG Q24H 11/27 1445 DC 11/27 Sodium Chloride 100 ML IV 1713 Vecuronium [place] 5 MG ONCE ONE 11/27 1100 DC 11/27 IV 11/27 1101 1055 Vital Signs & I&O Last 24 Hrs of Vitals and I&O: Vital Signs Date Time Temp Pulse Resp B/P Pulse O2 O2 Flow FiO2 Ox Delivery Rate 11/28 0951 40 11/28 0806 50 11/28 0800 100 Ventilator 60% 11/28 0800 97.7 87 17 109/69 100 Ventilator 60% 11/28 0606 60 11/28 0400 98 Ventilator 60% 11/28 0243 60 11/28 0036 60 11/28 0000 98.0 83 18 112/70 98 Ventilator 60% 11/28 0000 98 Ventilator 60% 11/27 2218 60 11/27 2000 99 Ventilator 65% 11/27 1920 65 11/27 1620 90 11/27 1600 96.8 93 18 130/0 100 Ventilator 100% 11/27 1600 100 Ventilator 100% 11/27 1420 100 11/27 1205 100 11/27 1032 100 Intake & Output 11/28 1600 11/28 0800 11/28 0000 Intake Total 1763 2221 Output Total 940 1038 Balance 823 1183 Intake, IV 1763 2221 Number 1 Bowel Movements Output, Urine 940 1038 She has been tapered to 0.4 saturation 95% and PEEP of 6. Chest x-rays suggest overlying soft tissue over the left lung right lung looks improved x-ray will be repeated. Exam for chest shows occasional rhonchi cardiac exam shows normal S1 and S2 with loud systolic ejection murmur abdomen is soft nontender extremities are warm Impression/Plan Impression/Plan Impression/Plan: 51-year-old woman is had acute onset of hypoxic respiratory failure associated with shortness of breath. Differential diagnosis includes community-acquired pneumonia in a mildly immunocompromised state as the patient is on low-dose prednisone, just of heart failure secondary to valvular heart disease or ARDS from uncertain etiology. She is markedly improved with improved oxygenation and peak airway pressures. Patient has become progressively anemic repeat CBCs in 8 hours if anemia worsens will need RBC transfusion. Recommendations: If oxygenation remains improved decrease PEEP to 5 with improved oxygenation care and reduced peak airway pressures DC vecuronium and Taper Ativan with the hopes of reducing sedation and beginning to assess for extubation. Continue antibiotics Lasix drip and steroids at current doses. Repeat hematocrit later this afternoon if she becomes more anemic consider RBC transfusion replete potassium. Discussed with housestaff.
--- NOTE | 2016-11-28 10:41 | PN- Cardiology ---
Subjective Subjective: the patient remains intubated and sedated. However she is oxygenating much better. Her chest x-ray is a little bit improved. She remains on Lasix drip. She is starting to diurese pretty well. Her transesophageal echocardiogram confirmed the results of the transthoracic echocardiogram and showed severe aortic stenosis, mild mitral stenosis. Objective Vital Signs and I&Os Vital Signs Date Time Temp Pulse Resp B/P Pulse O2 O2 Flow FiO2 Ox Delivery Rate 11/28 0951 40 11/28 0806 50 11/28 0800 100 Ventilator 60% 11/28 0800 97.7 87 17 109/69 100 Ventilator 60% 11/28 0606 60 11/28 0400 98 Ventilator 60% 11/28 0243 60 11/28 0036 60 11/28 0000 98.0 83 18 112/70 98 Ventilator 60% 11/28 0000 98 Ventilator 60% 11/27 2218 60 11/27 2000 99 Ventilator 65% 11/27 1920 65 11/27 1620 90 11/27 1600 96.8 93 18 130/0 100 Ventilator 100% 11/27 1600 100 Ventilator 100% 11/27 1420 100 11/27 1205 100 Intake & Output 11/28 1600 11/28 0800 11/28 0000 11/27 1600 11/27 0800 11/27 0000 Intake Total 1763 2221 1657 1438 1809 Output Total 940 1038 300 472 390 Balance 823 1183 2187 063 4551 Intake, IV 1763 2221 1597 1438 1654 Intake, Tube 60 155 Irrigant Number 1 Bowel Movements Output, Urine 940 1038 300 472 390 Patient 200 lb Weight Physical Exam: She is intubated and sedated Breath sounds are present bilaterally Cardiac exam reveals a harsh systolic ejection murmur at the base Extremities reveal good pulses and no edema Current Medications: Current Medications Sig/Lico Start time Last Medication Dose Route Stop Time Status Admin Albuterol Sulfate 3 ML EVERY 4 HRS/AWAKE 11/24 1200 AC 11/28 INH 0806 Atovaquone 750 MG BID 11/27 2200 AC 11/28 PO 1003 Atovaquone 750 MG BID 11/26 1455 DC 11/27 PO 11/27 1454 0958 Ceftriaxone Sodium 2,000 MG DAILY 11/26 1000 AC 11/28 IV 0903 Doxycycline Hyclate 100 MG Q12 11/26 1008 AC 11/28 Sodium Chloride 100 ML IV 0903 Fentanyl Citrate 1,000 MCG Q24H 11/26 1645 AC 11/27 Dextrose/Water 250 ML IV 2337 Furosemide 100 MG CONTINOUS INFUSION 11/27 1530 AC 11/27 Sodium Chloride 100 ML IV 1531 Furosemide 20 MG .STK-MED ONE 11/27 1520 DC IV 11/27 1521 Furosemide 80 MG .STK-MED ONE 11/27 1520 DC IV 11/27 1521 Heparin Sodium 25,000 UNIT Q24H 11/24 1545 AC 11/27 (Porcine) IV 2357 Sodium Chloride 500 ML Ipratropium [place] 2.5 ML EVERY 4 HRS/AWAKE 11/24 1200 AC 11/28 INH 0805 Lorazepam 50 MG Q10H 11/27 2100 AC 11/28 Sodium Chloride 500 ML IV 1003 Lorazepam 1 MG ONCE ONE 11/27 1100 DC IV 11/27 1101 Lorazepam 50 MG Q24H 11/27 1045 DC 11/27 Sodium Chloride 500 ML IV 11/27 2059 1102 Lorazepam 0.5 MG BID PRN 11/26 1030 AC IV Magnesium Sulfate 1 GM Q2H 11/28 0845 DC 11/28 Dextrose/Water 100 ML IV 11/28 1244 1003 Magnesium Sulfate 1 GM ONCE ONE 11/28 0845 CAN Dextrose/Water 100 ML IV 11/28 1244 Methylprednisolone 40 MG Q8 11/26 1400 AC 11/28 IV 0614 Pantoprazole Sodium 40 MG DAILY 11/26 1032 AC 11/28 IV 0903 Polyethylene Glycol 17 GM DAILY 11/28 1000 AC PO Potassium Chloride 10 MEQ ONCE ONE 11/28 1030 DC 11/28 IV 11/28 1031 1022 Potassium Chloride 10 MEQ ONCE ONE 11/28 1030 DC 11/28 IV 11/28 1031 1022 Potassium Chloride 10 MEQ ONCE ONE 11/28 0845 DC 11/28 IV 11/28 0846 0850 Potassium Chloride 10 MEQ Q1H 11/27 1830 DC 11/27 IV 11/27 1931 1943 Propofol 1,000 MG Q3H 11/26 1815 DC 11/27 N/A 100 ML IV 1100 Senna/Docusate Sodium 1 TAB BID 11/28 1000 AC PO Sodium Chloride 250 ML BOLUS ONE 11/27 1115 DC 11/27 IV 11/27 1214 1030 Sodium Chloride 1,000 ML Q10H 11/26 0915 AC 11/28 IV 1023 Vecuronium [place] 50 MG Q24H 11/27 1830 DC 11/28 Sodium Chloride 500 ML IV 1004 Vecuronium [place] 10 MG Q24H 11/27 1445 DC 11/27 Sodium Chloride 100 ML IV 1713 Vecuronium [place] 5 MG ONCE ONE 11/27 1100 DC 11/27 IV 11/27 1101 1055 Results Last 48 Hrs of Labs/Mics: Laboratory Tests 11/28/16 0600: Anion Gap 10, Estimated GFR > 60, Glucose 184 H, Calcium 8.5, Phosphorus 3.3, Magnesium 2.3, Total Bilirubin 0.3, AST 15, ALT 33, Albumin 2.6 L, APTT 73 H, CBC w Diff NO MAN DIFF REQ, RBC 2.49 L, MCV 94.4, MCH 30.4, RDW 15.4 H, MPV 7.8, Gran % 94.0 H, Lymphocytes % 2.5 L, Monocytes % 2.3, Eosinophils % 0, Basophils % 1.2, Absolute Granulocytes 12.6 H, Absolute Lymphocytes 0.3 L, Absolute Monocytes 0.3, Absolute Eosinophils 0, Absolute Basophils 0.2, PUBS MCHC 32.2 L 11/27/16 1830: Lactic Acid 1.6, APTT 70 H 11/27/16 1550: Lactic Acid 1.4 11/27/16 1550: Anion Gap 11, Estimated GFR > 60, Glucose 147 H, Calcium 9.2, Phosphorus 3.6, Magnesium 2.6 H, Total Bilirubin 0.4, AST 25, ALT 38, Lactate Dehydrogenase 1125 H, Albumin 2.9 L, CBC w Diff NO MAN DIFF REQ, RBC 2.66 L, MCV 94.6, MCH 30.5, RDW 14.9 H, MPV 8.0, Gran % 94.6 H, Lymphocytes % 2.3 L, Monocytes % 3.0, Eosinophils % 0, Basophils % 0.1, Absolute Granulocytes 12.8 H, Absolute Lymphocytes 0.3 L, Absolute Monocytes 0.4, Absolute Eosinophils 0, Absolute Basophils 0, PUBS MCHC 32.3 L 11/27/16 1532: Lactic Acid Cancelled 11/27/16 0630: APTT 75 H 11/27/16 0530: pH 7.50 H, pCO2 26 L, pO2 87, HCO3 20 L, ABG O2 Sat (Measured) 96.0, P-50 ( Temp Corrected) Y, Carboxyhemoglobin 0.3 L, O2 Concentration % 65%, Temperature 96.0 L, Respiration Rate 24, O2 Delivery Method ESPRIT, Vent Mode AC, Expiratory Pressure 8, Tidal Volume 500, Phlebotomy Draw Site RIGHT BRACHIAL 11/27/16 0430: Anion Gap 10, Estimated GFR > 60, Glucose 139 H, Calcium 8.8, Phosphorus 3.0, Magnesium 2.4 H, Total Bilirubin 0.4, AST 29, ALT 51, Albumin 2.6 L, CBC w Diff NO MAN DIFF REQ, RBC 2.48 L, MCV 94.3, MCH 31.0, RDW 15.1 H, MPV 8.1, Gran % 93.5 H, Lymphocytes % 3.8 L, Monocytes % 2.6, Eosinophils % 0, Basophils % 0.1, Absolute Granulocytes 9.2 H, Absolute Lymphocytes 0.4 L, Absolute Monocytes 0.3, Absolute Eosinophils 0, Absolute Basophils 0, PUBS MCHC 32.8 L 11/26/16 2158: APTT 110 *H 11/26/16 1600: Procalcitonin 1.17 H 11/26/16 1540: APTT 54 H 11/26/16 1346: Ref Lab Test Result Pending 11/26/16 1135: pH Cancelled, pCO2 Cancelled, pO2 Cancelled, HCO3 Cancelled, ABG O2 Sat ( Measured) Cancelled, P-50 (Temp Corrected) Cancelled, Carboxyhemoglobin Cancelled, O2 Concentration % Cancelled, Temperature Cancelled, O2 Delivery Method Cancelled, Vent Mode Cancelled, Expiratory Pressure Cancelled, Pressure Support Cancelled, Phlebotomy Draw Site Cancelled Recent Imaging Studies: PATIENT: JAISON VELASQUEZ PRESENT AGE: 51 PATIENT ACCOUNT NO: [id number] : 64 LOCATION: [facility] ORDERING PHYSICIAN: MARTINEZ CHU MD SERVICE DATE: 11/27/16 EXAM TYPE: RAD - XRY-PORTABLE CHEST XRAY EXAMINATION: XR PORTABLE CHEST CLINICAL INFORMATION: Patient intubated and on a mechanical ventilation. Evaluate for interval changes. COMPARISON: Portable chest 11/26/2016. TECHNIQUE: Portable AP view of the chest was obtained. FINDINGS: The endotracheal tube terminates 4 cm above the damari. A nasogastric tube again terminates in the stomach. There has been improvement in the diffuse patchy airspace disease. IMPRESSION: Improvement in the diffuse patchy bilateral airspace disease, representing pulmonary edema and/or bilateral pneumonia. DICTATED BY: HELENE SAENZ MD DATE/TIME DICTATED:11/27/16758 TERRA COTTA SETTER:DESTINY DATE/TIME TRANSCRIBED:11/27/16758 CONFIDENTIAL, DO NOT COPY WITHOUT APPROPRIATE AUTHORIZATION. <Electronically signed in Other Vendor System> SIGNED BY: HELENE SAENZ MD [id number] Assessment/Plan Assessment/Plan The patient appears improved from a respiratory standpoint. She is down to 40% oxygen. Her sedation is being cut back. Hopefully she will be able to be extubated. I recommend continuing her on Lasix drip for now. We will need to watch her blood pressure closely. Hopefully she will continue to improve on this regimen. Ultimately she will need cardiac catheterization and probable aortic valve replacement. Continue telemetry? Yes
--- NOTE | 2016-11-28 10:43 | RADIOLOGY REPORT ---
EXAMINATION: XR PORTABLE CHEST CLINICAL INFORMATION: Intubated on mechanical ventilation. Assess for changes. COMPARISON: Chest radiograph 11/28/2016 and 11/27/2016. TECHNIQUE: Portable AP 75 degrees upright view of the chest was obtained. FINDINGS: ET tube tip terminates 3.8 cm above the damari. The enteric tube extends below diaphragm to at least the level of the stomach. The lung volumes are decreased. Diffuse interstitial changes have shown some improvement from 11/27/2016. There is evidence of persistent opacity at both lung bases and in the left retrocardiac region. There are likely small bilateral pleural effusions. The heart is not enlarged. IMPRESSION: Persistent interstitial opacities which are compatible with pulmonary edema but could also reflect infectious process. There has been mild improvement from prior. Associated bibasilar opacities, left greater than right side similar to prior.
--- NOTE | 2016-11-28 11:18 | NUR ---
PT DESAT TO 88% ON VENTILATOR, RT CALLED, WILL CONT TO MON.
--- NOTE | 2016-11-28 11:19 | PN- Infect Dx ---
Subjective Subjective: Remains sedated and intubated w/ decreased FiO2 requirements (50%) while on laxis drip. Review of Systems Comments: 10 points reviewed as noted, otherwise negative. Objective Last 24 Hrs of Vital Signs/I&O Vital Signs Date Time Temp Pulse Resp B/P Pulse O2 O2 Flow FiO2 Ox Delivery Rate 11/28 0951 40 11/28 0806 50 11/28 0800 100 Ventilator 60% 11/28 0800 97.7 87 17 109/69 100 Ventilator 60% 11/28 0606 60 11/28 0400 98 Ventilator 60% 11/28 0243 60 11/28 0036 60 11/28 0000 98.0 83 18 112/70 98 Ventilator 60% 11/28 0000 98 Ventilator 60% 11/27 2218 60 11/27 2000 99 Ventilator 65% 11/27 1920 65 11/27 1620 90 11/27 1600 96.8 93 18 130/0 100 Ventilator 100% 11/27 1600 100 Ventilator 100% 11/27 1420 100 11/27 1205 100 Intake & Output 11/28 1600 11/28 0800 11/28 0000 Intake Total 1763 2221 Output Total 940 1038 Balance 823 1183 Intake, IV 1763 2221 Number 1 Bowel Movements Output, Urine 940 1038 Physical Exam Other Physical Findings: General Appearance Critically ill, intubated Skin No Rashes, N HEENT Atraumatic, ETT in place; OG tube in place Neck Supple, no JVD Cardiovascular Regular Rate, Normal S1, Normal S2, systolic murmur 3/6, best heard LUSB Lungs Decreased breath sounds bilateral lung verduzco. No wheezing. Abdomen Soft, No Tenderness, BS present Neurological sedated Extremities No Clubbing, No Cyanosis Vascular Pulses Symmetrical Results Last 24 Hours of Lab Results: Laboratory Tests 11/28 11/27 11/27 0600 1830 1550 Chemistry Sodium (137 - 145 mmol/L) 140 Potassium (3.5 - 5.1 mmol/L) 3.3 L Chloride (98 - 107 mmol/L) 107 Carbon Dioxide (22 - 30 mmol/L) 23 Anion Gap (5 - 16) 10 BUN (7 - 17 mg/dL) 19 H Creatinine (0.5 - 1.0 mg/dL) 0.8 Estimated GFR (>60 ml/min) > 60 Glucose (65 - 99 mg/dL) 184 H Lactic Acid (0.7 - 2.1 mmol/L) 1.6 1.4 Calcium (8.4 - 10.2 mg/dL) 8.5 Phosphorus (2.5 - 4.5 mg/dL) 3.3 Magnesium (1.6 - 2.3 mg/dL) 2.3 Total Bilirubin (0.2 - 1.3 mg/dL) 0.3 AST (14 - 36 U/L) 15 ALT (9 - 52 U/L) 33 Albumin (3.5 - 5.0 g/dL) 2.6 L Coagulation APTT (25 - 37 SEC) 73 H 70 H Hematology CBC w Diff NO MAN DIFF REQ WBC (4.8 - 10.8 /CUMM) 13.4 H RBC (4.20 - 5.40 /CUMM) 2.49 L Hgb (12.0 - 16.0 G/DL) 7.6 L Hct (37 - 47 %) 23.5 L MCV (81.0 - 99.0 FL) 94.4 MCH (27.0 - 31.0 PG) 30.4 RDW (11.5 - 14.5 %) 15.4 H Plt Count (130 - 400 /CUMM) 262 MPV (7.4 - 10.4 FL) 7.8 Gran % (42.2 - 75.2 %) 94.0 H Lymphocytes % (20.5 - 51.1 %) 2.5 L Monocytes % (1.7 - 9.3 %) 2.3 Eosinophils % (0 - 5 %) 0 Basophils % (0.0 - 2.0 %) 1.2 Absolute Granulocytes (1.4 - 6.5 /CUMM) 12.6 H Absolute Lymphocytes (1.2 - 3.4 /CUMM) 0.3 L Absolute Monocytes (0.10 - 0.60 /CUMM) 0.3 Absolute Eosinophils (0.0 - 0.7 /CUMM) 0 Absolute Basophils (0.0 - 0.2 /CUMM) 0.2 PUBS MCHC (33.0 - 37.0 G/DL) 32.2 L 11/27 11/27 1550 1532 Chemistry Sodium (137 - 145 mmol/L) 140 Potassium (3.5 - 5.1 mmol/L) 3.7 Chloride (98 - 107 mmol/L) 106 Carbon Dioxide (22 - 30 mmol/L) 22 Anion Gap (5 - 16) 11 BUN (7 - 17 mg/dL) 18 H Creatinine (0.5 - 1.0 mg/dL) 0.8 Estimated GFR (>60 ml/min) > 60 Glucose (65 - 99 mg/dL) 147 H Lactic Acid Cancelled Calcium (8.4 - 10.2 mg/dL) 9.2 Phosphorus (2.5 - 4.5 mg/dL) 3.6 Magnesium (1.6 - 2.3 mg/dL) 2.6 H Total Bilirubin (0.2 - 1.3 mg/dL) 0.4 AST (14 - 36 U/L) 25 ALT (9 - 52 U/L) 38 Lactate Dehydrogenase (313 - 618 U/L) 1125 H Albumin (3.5 - 5.0 g/dL) 2.9 L Hematology CBC w Diff NO MAN DIFF REQ WBC (4.8 - 10.8 /CUMM) 13.6 H RBC (4.20 - 5.40 /CUMM) 2.66 L Hgb (12.0 - 16.0 G/DL) 8.1 L Hct (37 - 47 %) 25.1 L MCV (81.0 - 99.0 FL) 94.6 MCH (27.0 - 31.0 PG) 30.5 RDW (11.5 - 14.5 %) 14.9 H Plt Count (130 - 400 /CUMM) 267 MPV (7.4 - 10.4 FL) 8.0 Gran % (42.2 - 75.2 %) 94.6 H Lymphocytes % (20.5 - 51.1 %) 2.3 L Monocytes % (1.7 - 9.3 %) 3.0 Eosinophils % (0 - 5 %) 0 Basophils % (0.0 - 2.0 %) 0.1 Absolute Granulocytes (1.4 - 6.5 /CUMM) 12.8 H Absolute Lymphocytes (1.2 - 3.4 /CUMM) 0.3 L Absolute Monocytes (0.10 - 0.60 /CUMM) 0.4 Absolute Eosinophils (0.0 - 0.7 /CUMM) 0 Absolute Basophils (0.0 - 0.2 /CUMM) 0 PUBS MCHC (33.0 - 37.0 G/DL) 32.3 L Last 24 Hours of Michael Results: C #: [id number] BRIDGETTE: 11/26/16 STATUS: RES RECD: 11/26/[address]: VLAD CROOKS,[facility] [place] SOURCE: LW RESPINV ENTR: 11/26/[address] [facility] DR: DAVID CROOKS, DARREL Benjamin SPDESC: BRONCH LAV FREDIS CHU APRN ORDERED: AFB W/SMR Procedure Result > AFB SMEAR Final 11/27/16 NO AFB SEEN ON SMEAR > AFB CULTURE Preliminary 11/26/16 Specimen sent to [facility] of [facility] for performance of culture. Smear only performed at [facility]. (AFB smear to be confirmed by [facility].) Cultures for Acid Fast Bacilli are held for seven weeks incubation from date of receipt. Recent Imaging Studies: SERVICE DATE: 11/28/16 EXAM TYPE: RAD - XRY-PORTABLE CHEST XRAY EXAMINATION: XR PORTABLE CHEST CLINICAL INFORMATION: Intubated on mechanical ventilation. Assess for changes. COMPARISON: Chest radiograph 11/28/2016 and 11/27/2016. TECHNIQUE: Portable AP 75 degrees upright view of the chest was obtained. FINDINGS: ET tube tip terminates 3.8 cm above the damari. The enteric tube extends below diaphragm to at least the level of the stomach. The lung volumes are decreased. Diffuse interstitial changes have shown some improvement from 11/27/2016. There is evidence of persistent opacity at both lung bases and in the left retrocardiac region. There are likely small bilateral pleural effusions. The heart is not enlarged. IMPRESSION: Persistent interstitial opacities which are compatible with pulmonary edema but could also reflect infectious process. There has been mild improvement from prior. Associated bibasilar opacities, left greater than right side similar to prior. 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 Acute hypoxemic resp failure; CT chest performed revealing also mediastinal VANGIE and bilateral airspace disease with air bronchograms abnormality affects the mid lung zones bilaterally in a fairly symmetric pattern. Multilobar pneumonia; repeat CXR today suggestive of improvement; s/p bronchoscopy Elevated ESR (above 100); procalcitonin less then 2; elevated LDH; worsening anemia Abnormal 2 D echo findings; KESHIA performed results pnd; h/o rheumatic heart disease; Suggestion: 1. Continue empiric antibiotic coverage with iv CTX 2 gm daily and po doxycycline 100 mg iv bid for total 7 d. 2. F/U bronch cultures results (bacterial, fungal and mycobacterial). F/u procalcitonin test results. Of note aspergillus antigen test requested not aspergillus antibody; would not reorder test; f/u BAL cultures, including PCR for PCP. 3. Trend BMP, CBC, LDH, consider DIC screen. 4. PCP prophylaxis w/ Mepron 750 mg bid via NGT (allergic sulfa drugs); w/ PCP infection pleural effusions not common. 5. F/U KESHIA results (severe reported); if findings of infective endocarditis please call. 6. Obtain nasal MRSA surv cx.
[2016-11-28 16:16] VITALS: BP 97/64
[2016-11-28 17:36] LABS: ABSOLUTE BASOPHIL COUNT 0 /CUMM (0.0-0.2); ABSOLUTE EOSINOPHIL COUNT 0 /CUMM (0.0-0.7); ABSOLUTE LYMPH COUNT 0.3 /CUMM (1.2-3.4); ABSOLUTE MONOCYTE COUNT 0.4 /CUMM (0.10-0.60); BASOPHIL % 0.1 % (0.0-2.0); EOSINOPHIL % 0.1 % (0-5); GRANULOCYTE % 94.5 % (42.2-75.2); HEMATOCRIT 23.8 % (37-47); MEAN CORPUSCULAR HGB 30.8 PG (27.0-31.0); MEAN CORPUSCULAR HGB CONC 32.7 G/DL (33.0-37.0); MEAN PLATELET VOLUME 7.9 FL (7.4-10.4); PLATELET COUNT 308 /CUMM (130-400); RBC DISTRIBUTION WIDTH 15.4 % (11.5-14.5); RED BLOOD CELL CT 2.53 /CUMM (4.20-5.40)
[2016-11-28 17:41] LABS: PTT 69 SEC (25-37)
[2016-11-28 19:16] LABS: WHITE BLOOD CELL COUNT 13.8 /CUMM (4.8-10.8)
[2016-11-29] VITALS: BP 120/70
--- NOTE | 2016-11-29 01:34 | NUR ---
ON FIRST ASSESSMENT AT 0000 PATIENT AWAKE AND FOLLOWING COMMANDS.FENTANYL DRIP AT 100 MCG/HR. MONITOR SINUS RHYTHM AT RATE OF 92. OA=485/70.ETT TO VENTILATOR AT 50%.SAT=93%.TUBE FEEDING AT 30 ML/HR VIA OGT.LASIX DRIP AT 3 MG/HR.URINE OUTPUT 400 ML LAST HOUR. HEPARIN DRIP AT 18 UNITS/KG/HR. MOUTH CARE GIVEN,BED BATH BEGUN.O2 SAT DECREASED TO 89%. PLACED ON 100% PRIOR TO SUCTIONING. THICK YELLOW BLOOD STREAKED MUCOUS OBTAINED.SUCTIONED X2. RESPIRATORY THERAPIST TO BEDSIDE,FIO2 INCREASED TO 60%. ATIVAN 0.5 MG GIVEN IV. O2 SAT INCREASED TO 95%.TURNED AND REPOSITIONED. O2 SAT=91-92%.FENTANYL DRIP INCREASED TO 125 MCG/HR.
[2016-11-29 05:48] LABS: ABSOLUTE BASOPHIL COUNT 0 /CUMM (0.0-0.2); ABSOLUTE EOSINOPHIL COUNT 0 /CUMM (0.0-0.7); ABSOLUTE GRANULOCYTE CT 15.5 /CUMM (1.4-6.5); ABSOLUTE LYMPH COUNT 0.7 /CUMM (1.2-3.4); ABSOLUTE MONOCYTE COUNT 0.5 /CUMM (0.10-0.60); BASOPHIL % 0.1 % (0.0-2.0); EOSINOPHIL % 0 % (0-5); HEMATOCRIT 24.5 % (37-47); MEAN CORPUSCULAR HGB 30.6 PG (27.0-31.0); MEAN CORPUSCULAR HGB CONC 32.8 G/DL (33.0-37.0); MEAN CORPUSCULAR VOLUME 93.3 FL (81.0-99.0); MEAN PLATELET VOLUME 7.7 FL (7.4-10.4); PLATELET COUNT 338 /CUMM (130-400); RBC DISTRIBUTION WIDTH 15.7 % (11.5-14.5); RED BLOOD CELL CT 2.63 /CUMM (4.20-5.40); WHITE BLOOD CELL COUNT 16.7 /CUMM (4.8-10.8)
[2016-11-29 05:50] LABS: GRANULOCYTE % 92.8 % (42.2-75.2)
[2016-11-29 05:57] LABS: PTT 78 SEC (25-37)
--- NOTE | 2016-11-29 06:54 | RADIOLOGY REPORT ---
EXAMINATION: XR PORTABLE CHEST CLINICAL INFORMATION: Intubation. COMPARISON: Chest x-ray 11/28/2016 TECHNIQUE: Portable AP view of the chest was obtained. 6:33 AM FINDINGS: Nasogastric tube in stomach. Endotracheal tube catheter in good position about 3 cm above the damari. Persistent bilateral airspace disease and interstitial thickening persistent dense opacification of the left lung base. Suspect bilateral pleural effusions present as well not changed since prior study. IMPRESSION: 1. Endotracheal tube 3 cm above damari. 2. No change in interstitial opacities and airspace disease, possibly from pulmonary edema, and small bilateral pleural effusions. Persistent dense consolidation at the left lung base which can be from the pulmonary edema and/or underlying infiltrate /atelectasis.
[2016-11-29 08:00] VITALS: BP 123/80
--- NOTE | 2016-11-29 09:45 | PN- Resident CRCU ---
Subjective HPI/CRCU Issues: Patient is in ICU for acute respiratory distress syndrome currently intubated. I followed up and examined the patient today. See is currently intubated, but is awake and alert, responding nonverbally to questions. I am not sure about her orientation though. She has not had fever, or any issues overnight. Her vitals have been stable. Objective Vital Signs & I&O Last 8 Hrs of Vitals and I&O: Vital Signs Date Time Temp Pulse Resp B/P Pulse O2 O2 Flow FiO2 Ox Delivery Rate 11/29 1116 45 11/29 0810 50 11/29 0800 94 Ventilator 50% 11/29 0800 98.3 85 18 123/80 94 Ventilator 50% 11/29 0609 60 Exam General Appearance: no apparent distress, alert, awake, comfortable, intubated, obese Other Physical Findings: Head: atraumatic, normal appearance Respiratory: crackles scattered throughout bilateral lung verduzco Cardiovascular: regular rate/rhythm, normal S1 and S2, grade 3/6 systolic murmur Gastrointestinal: soft, non-tender, positive bowel sounds Extremities: no edema Skin: warm/dry Scott Site: urethral Still Needed? Yes IV Drips IV Drips: Lasix Heparin drip (stopped today) NS (no more) Ativan Nutrition Nutrition: tube feeding Current Medications: Current Medications Sig/Lico Start time Last Medication Dose Route Stop Time Status Admin Albuterol Sulfate 3 ML EVERY 4 HRS/AWAKE 11/24 1200 AC 11/29 INH 1111 Atovaquone 750 MG BID 11/27 2200 AC 11/29 PO 1123 Ceftriaxone Sodium 2,000 MG DAILY 11/26 1000 AC 11/29 IV 1122 Doxycycline Hyclate 100 MG Q12 11/26 1008 AC 11/29 Sodium Chloride 100 ML IV 1122 Enoxaparin Sodium 40 MG DAILY 11/29 1201 AC SC Fentanyl Citrate 1,000 MCG Q24H 11/26 1645 AC 11/29 Dextrose/Water 250 ML IV 0527 Furosemide 120 MG .[facility] 11/28 2007 DC IV 11/28 2008 Furosemide 100 MG CONTINOUS INFUSION 11/27 1530 AC 11/27 Sodium Chloride 100 ML IV 1531 Heparin Sodium 25,000 UNIT Q24H 11/24 1545 DC 11/29 (Porcine) IV 0545 Sodium Chloride 500 ML Ipratropium [place] 2.5 ML EVERY 4 HRS/AWAKE 11/24 1200 AC 11/29 INH 1111 Lorazepam 50 MG Q10H 11/27 2100 DC 11/28 Sodium Chloride 500 ML IV 1003 Lorazepam 0.5 MG BID PRN 11/26 1030 AC 11/29 IV 0049 Methylprednisolone 40 MG Q8 11/26 1400 AC 11/29 IV 0531 Pantoprazole Sodium 40 MG DAILY 11/26 1032 AC 11/29 IV 1122 Polyethylene Glycol 17 GM DAILY 11/28 1000 AC 11/29 PO 1121 Senna/Docusate Sodium 1 TAB BID 11/28 1000 AC 11/29 PO 1122 Sodium Chloride 1,000 ML Q10H 11/26 0915 DC 11/28 IV 1023 CXR Findings: IMPRESSION: 1. Endotracheal tube 3 cm above damari. 2. No change in interstitial opacities and airspace disease, possibly from pulmonary edema, and small bilateral pleural effusions. Persistent dense consolidation at the left lung base which can be from the pulmonary edema and/or underlying infiltrate /atelectasis. DICTATED BY: JONNIE NG MD DATE/TIME DICTATED:11/29/16646 METER TESTER PRIMARY:DESTINY DATE/TIME TRANSCRIBED:11/29/16646 Impression/Plan Impression/Problem List Impression: 51 y/o F with PMHx of seronegative rheumatoid arthritis, rheumatic fever c/b mitral valve stenosis and insufficiency and CVA 2/2 cardiac embolism who is admitted for acute hypoxemic respiratory failure. Remains intubated and sedated. She is currently being managed in the ICU for the following issues: Respiratory: #Acute hypoxemic respiratory failure: On mechanical ventilation day #4 with the following vent settings: AC mode, tidal volume 500, FiO2 50%, RR 18 and PEEP 5. Significantly improved from a respiratory perspective, with decreasing oxygen requirement and PEEP. CXR improved from yesterday. * Continue mechanical ventilation. * Check CXR daily. * Continue Solumedrol 40 mg IV Q8H. * Continue to taper down FiO2 and PEEP as tolerated. Infectious Diseases: #Probable multilobar pneumona: Remains afebrile. Mild leukocytosis has persisted. Infectious work-up negative so far. Bronchoalveolar lavage bacterial Cx with no growth so far and AFP smear negative. Fungal Cx and PCP PCR pending. Procalcitonin (1.17, ref range: <0.10) and LDH (1125, ref range: 313-618) elevated but per ID, PCP is unlikely in the presence of bilateral pleural effusions as PCP almost never manifests with pleural effusions. KESHIA with no evidence of infective endocarditis. * ID following. Appreciate their recs. * Continue empiric antibiotic coverage with doxycycline 100 mg IV BID and ceftriaxone 2 g IV daily for a total of 7 days (11/24-11/30). today is day 4 * Continue atovaquone 750 mg PO BID through NG tube for PCP prophylaxis. * Await bronchoscopy results including bacterial, fungal and mycobacterial cultures and PCP PCR. * Trend LDH. Cardiovascular: #Suspected CHF 2/2 severe aortic stenosis: [place] to be most likely etiology for the acute hypoxemic respiratory failure at this point, given significant improvement after starting IV Lasix, significant valvular heart disease and the negative infectious work-up so far. KESHIA performed yesterday confirmed severe aortic stenosis and mild mitral stenosis. Remains on IV Lasix with excellent diuresis. * Cardiology following. Appreciate their recs. * Continue to monitor strict I/Os. * Continue IV Lasix drip. * Continue to monitor BP closely. * Will most likely need cardiac catheterization and probably aortic valve replacement per cardiology. * IV heparin drip has been changed to Lovenox, as that would decrease her IV fluid intake while still providing the required anticoagulation. Hematology: #Anemia: Anemia most likely chronic. H/H is stable at 8.1/24.5 today. * Re-check CBC in the morning and consider transfusing if H/H drops further. #CVA 2/2 cardiac emboli: Was taking warfarin, aggrenox prior to admission. Presented with subtherapeutic INR and was started on IV heparin. * Discontinued IV heparin and changed to Lovenox per Cardiology, as we can further reduce her IV intake this way. Metabolic: Replete electrolytes to K > 4 and Mg > 2. Alimentary: S/p nutrition consult. Start tube feeds per their recs. Neurological: Intubated, sedated and paralyzed on IV Ativan, fentanyl and vecuronium drips. * Start reducing sedation as tolerated with the hope of extubation. Discontinue vecuronium drip and taper down Ativan. Skin: No issues. Diet: Tube feeding DVT/Prophylaxis: mechanical, pharmacological Code Status: Full Code Problem List: 1. ARDS (adult respiratory distress syndrome) 2. Severe aortic stenosis 3. Rheumatic fever with cardiac involvement 4. History of CVA (cerebrovascular accident) 5. CHF (congestive heart failure) Pain Ratin Pain Location: cannot assess Pain Goal: Pain 4 or less Pain Plan: prn Tomorrow's Labs & Rationales: ICU lab bundle, CBC and CXR portable for dyselectrolytemia, signs of infection/ sepsis, and correct position of ET-tube Plan DVT/Prophylaxis: mechanical, pharmacological Code Status: Full Code
--- NOTE | 2016-11-29 10:26 | PN- Pulmonary ---
Subjective HPI/Critical Care Issues: Patient is more alert now only on fentanyl. Respiratory status has improved with FiO2 45 and saturations 93%. She is actively diuresing while maintaining adequate. Chest x-ray has. Not changed Objective Current Medications: Current Medications Sig/Lico Start time Last Medication Dose Route Stop Time Status Admin Albuterol Sulfate 3 ML EVERY 4 HRS/AWAKE 11/24 1200 AC 11/29 INH 0805 Atovaquone 750 MG BID 11/27 2200 AC 11/28 PO 2132 Ceftriaxone Sodium 2,000 MG DAILY 11/26 1000 AC 11/28 IV 0903 Doxycycline Hyclate 100 MG Q12 11/26 1008 AC 11/28 Sodium Chloride 100 ML IV 2133 Fentanyl Citrate 1,000 MCG Q24H 11/26 1645 AC 11/29 Dextrose/Water 250 ML IV 0527 Furosemide 120 MG .[facility] 11/28 2007 DC IV 11/28 2009 Furosemide 100 MG CONTINOUS INFUSION 11/27 1530 AC 11/27 Sodium Chloride 100 ML IV 1531 Heparin Sodium 25,000 UNIT Q24H 11/24 1545 AC 11/29 (Porcine) IV 0545 Sodium Chloride 500 ML Ipratropium [place] 2.5 ML EVERY 4 HRS/AWAKE 11/24 1200 AC 11/29 INH 0805 Lorazepam 50 MG Q10H 11/27 2100 DC 11/28 Sodium Chloride 500 ML IV 1003 Lorazepam 0.5 MG BID PRN 11/26 1030 AC 11/29 IV 0049 Methylprednisolone 40 MG Q8 11/26 1400 AC 11/29 IV 0531 Pantoprazole Sodium 40 MG DAILY 11/26 1032 AC 11/28 IV 0903 Polyethylene Glycol 17 GM DAILY 11/28 1000 AC 11/28 PO 1113 Potassium Chloride 10 MEQ ONCE ONE 11/28 1030 DC 11/28 IV 11/28 1031 1022 Potassium Chloride 10 MEQ ONCE ONE 11/28 1030 DC 11/28 IV 11/28 1031 1022 Senna/Docusate Sodium 1 TAB BID 11/28 1000 AC 11/28 PO 2132 Sodium Chloride 1,000 ML Q10H 11/26 0915 DC 11/28 IV 1023 Vital Signs & I&O Last 24 Hrs of Vitals and I&O: Vital Signs Date Time Temp Pulse Resp B/P Pulse O2 O2 Flow FiO2 Ox Delivery Rate 11/29 0810 50 11/29 0800 94 Ventilator 50% 11/29 0800 98.3 85 18 123/80 94 Ventilator 50% 11/29 0609 60 11/29 0400 96 Ventilator 60% 11/29 0329 60 11/29 0046 50 11/29 0000 98.7 92 18 120/70 93 Ventilator 50% 11/29 0000 93 Ventilator 50% 11/28 2202 50 11/28 2000 94 Ventilator 50% 11/28 1910 50 11/28 1616 97.6 94 18 97/64 96 Ventilator 50% 11/28 1600 93 Ventilator 50% 11/28 1555 50 11/28 1356 50 11/28 1200 94 Ventilator 50% 11/28 1140 50 Intake & Output 11/29 1600 11/29 0800 11/29 0000 Intake Total 1137 1574.6 Output Total 1220 525 Balance -83 1049.6 Intake, IV 690 1089.6 Intake, Other 290 Intake, Tube 257 195 Feeding Intake, Tube 190 Irrigant Output, Urine 1220 525 Since saturation FiO2 0.45 PEEP 693% exam for chest shows occasional rhonchi cardiac exam shows regular S1 and S2 abdominal exam soft nontender Impression/Plan Impression/Plan Impression/Plan: 51-year-old woman is had acute onset of hypoxic respiratory failure associated with shortness of breath. She is actively diuresing and respiratory status is improving. Attempt to minimize IV fluids and concentrate heparin if possible. Recommendations: Continue to taper FiO2 his saturations allow maintaining PEEP 6. Attempt to minimize IV fluids. Continue Lasix drip steroids and antibiotics. Consideration of cardiac catheterization has been raised decision will have to be made regarding utility of cardiac catheterization now that respiratory status has improved
--- NOTE | 2016-11-29 11:39 | PN- Infect Dx ---
Subjective Subjective: No fever; awake. Scott patent. Review of Systems Comments: 10 points reviewed as noted, otherwise negative. Objective Last 24 Hrs of Vital Signs/I&O Vital Signs Date Time Temp Pulse Resp B/P Pulse O2 O2 Flow FiO2 Ox Delivery Rate 11/29 1116 45 11/29 0810 50 11/29 0800 94 Ventilator 50% 11/29 0800 98.3 85 18 123/80 94 Ventilator 50% 11/29 0609 60 11/29 0400 96 Ventilator 60% 11/29 0329 60 11/29 0046 50 11/29 0000 98.7 92 18 120/70 93 Ventilator 50% 11/29 0000 93 Ventilator 50% 11/28 2202 50 11/28 2000 94 Ventilator 50% 11/28 1910 50 11/28 1616 97.6 94 18 97/64 96 Ventilator 50% 11/28 1600 93 Ventilator 50% 11/28 1555 50 11/28 1356 50 11/28 1200 94 Ventilator 50% 11/28 1140 50 Intake & Output 11/29 1600 11/29 0800 11/29 0000 Intake Total 1137 1574.6 Output Total 1220 525 Balance -83 1049.6 Intake, IV 690 1089.6 Intake, Other 290 Intake, Tube 257 195 Feeding Intake, Tube 190 Irrigant Output, Urine 1220 525 Physical Exam Other Physical Findings: General Appearance Critically ill, intubated Skin No Rashes, HEENT Atraumatic, ETT in place Neck Supple, no JVD Cardiovascular Regular Rate, Normal S1, Normal S2, systolic murmur 3/6 Lungs Coarse BS present, no wheezing Abdomen Soft, No Tenderness, BS diminished Neurological sedated Extremities No Clubbing, No Cyanosis R UE peripheral iv; site w/o erythema Vascular Pulses Symmetrical Results Last 24 Hours of Lab Results: Laboratory Tests 11/29 11/28 0530 1710 Chemistry Sodium (137 - 145 mmol/L) 139 Potassium (3.5 - 5.1 mmol/L) 3.8 Chloride (98 - 107 mmol/L) 104 Carbon Dioxide (22 - 30 mmol/L) 27 Anion Gap (5 - 16) 9 BUN (7 - 17 mg/dL) 29 H Creatinine (0.5 - 1.0 mg/dL) 1.0 Estimated GFR (>60 ml/min) 58 L Glucose (65 - 99 mg/dL) 189 H Calcium (8.4 - 10.2 mg/dL) 9.3 Phosphorus (2.5 - 4.5 mg/dL) 3.7 Magnesium (1.6 - 2.3 mg/dL) 3.1 H Total Bilirubin (0.2 - 1.3 mg/dL) 0.3 AST (14 - 36 U/L) 19 ALT (9 - 52 U/L) 33 Lactate Dehydrogenase (313 - 618 U/L) 872 H Albumin (3.5 - 5.0 g/dL) 2.8 L Coagulation APTT (25 - 37 SEC) 78 H 69 H Hematology CBC w Diff NO MAN DIFF REQ NO MAN DIFF REQ WBC (4.8 - 10.8 /CUMM) 16.7 H 13.8 H RBC (4.20 - 5.40 /CUMM) 2.63 L 2.53 L Hgb (12.0 - 16.0 G/DL) 8.1 L 7.8 L Hct (37 - 47 %) 24.5 L 23.8 L MCV (81.0 - 99.0 FL) 93.3 94.0 MCH (27.0 - 31.0 PG) 30.6 30.8 RDW (11.5 - 14.5 %) 15.7 H 15.4 H Plt Count (130 - 400 /CUMM) 338 308 MPV (7.4 - 10.4 FL) 7.7 7.9 Gran % (42.2 - 75.2 %) 92.8 H 94.5 H Lymphocytes % (20.5 - 51.1 %) 3.9 L 2.5 L Monocytes % (1.7 - 9.3 %) 3.2 2.8 Eosinophils % (0 - 5 %) 0 0.1 Basophils % (0.0 - 2.0 %) 0.1 0.1 Absolute Granulocytes (1.4 - 6.5 /CUMM) 15.5 H 13.0 H Absolute Lymphocytes (1.2 - 3.4 /CUMM) 0.7 L 0.3 L Absolute Monocytes (0.10 - 0.60 /CUMM) 0.5 0.4 Absolute Eosinophils (0.0 - 0.7 /CUMM) 0 0 Absolute Basophils (0.0 - 0.2 /CUMM) 0 0 PUBS MCHC (33.0 - 37.0 G/DL) 32.8 L 32.7 L Last 24 Hours of Michael Results: All cx NGTD. Recent Imaging Studies: IMPRESSION: 1. Endotracheal tube 3 cm above damari. 2. No change in interstitial opacities and airspace disease, possibly from pulmonary edema, and small bilateral pleural effusions. Persistent dense consolidation at the left lung base which can be from the pulmonary edema and/or underlying infiltrate /atelectasis. DICTATED BY: JONNIE NG MD DATE/TIME DICTATED:11/29/16646 FOOD CART ATTENDANT:DESTINY DATE/TIME TRANSCRIBED:11/29/16646 Assessment/Plan Impression: 51 year old WF immunocompromised (low dose chronic steroid treatment) with extensive medical history including prior (?embolic) CVA in 2011, HTN, rheumatic heart disease, rheumatoid arthritis, anxiety admitted on 11/23/16. Acute hypoxemic resp failure; CT chest performed revealing also mediastinal VANGIE and bilateral airspace disease with air bronchograms abnormality affects the mid lung zones bilaterally in a fairly symmetric pattern. Multilobar pneumonia/pulmonary edema; s/p bronchoscopy; worsening leukocytosis ( ?related to steroids) Elevated ESR (above 100); procalcitonin less then 2; elevated LDH; worsening anemia Abnormal 2 D echo findings; KESHIA performed results pnd; h/o rheumatic heart disease; Suggestion: 1. Continue empiric antibiotic coverage with iv CTX 2 gm daily and po doxycycline 100 mg iv bid for total 7 d. Consider repeating sputum culture. Depending on the clinical course consider transbronchial bx carinal lymph nodes vs lung bx. 2. F/U bronch cultures results (bacterial, fungal and mycobacterial). Of note aspergillus antigen test requested not aspergillus antibody; would not reorder test; f/u BAL cultures, including PCR for PCP. 3. Trend BMP, CBC, LDH. 4. PCP prophylaxis w/ Mepron 750 mg bid via NGT (allergic sulfa drugs); w/ PCP infection pleural effusions not common. 5. F/U KESHIA results (severe reported); if findings of infective endocarditis please call.
--- NOTE | 2016-11-29 12:01 | PN- Cardiology ---
Subjective Subjective: The patient is more alert. She is weaning. Her I&O's are positive because of IV drips. She is on IV heparin as opposed to Coumadin when she came in. She is in sinus rhythm. Her blood pressure is being maintained. Objective Vital Signs and I&Os Vital Signs Date Time Temp Pulse Resp B/P Pulse O2 O2 Flow FiO2 Ox Delivery Rate 11/29 1116 45 11/29 0810 50 11/29 0800 94 Ventilator 50% 11/29 0800 98.3 85 18 123/80 94 Ventilator 50% 11/29 0609 60 11/29 0400 96 Ventilator 60% 11/29 0329 60 11/29 0046 50 11/29 0000 98.7 92 18 120/70 93 Ventilator 50% 11/29 0000 93 Ventilator 50% 11/28 2202 50 11/28 2000 94 Ventilator 50% 11/28 1910 50 11/28 1616 97.6 94 18 97/64 96 Ventilator 50% 11/28 1600 93 Ventilator 50% 11/28 1555 50 11/28 1356 50 11/28 1200 94 Ventilator 50% Intake & Output 11/29 1600 11/29 0800 11/29 0000 11/28 1600 11/28 0800 11/28 0000 Intake Total 1137 1574.6 2346.2 1763 2221 Output Total 1220 525 723 814 6756 Balance -83 1049.6 1496.2 823 1183 Intake, IV 690 1089.6 1881.2 1763 2221 Intake, Oral 0 Intake, Other 290 Intake, Tube 257 195 75 Feeding Intake, Tube 190 390 Irrigant Number 1 Bowel Movements Output, Urine 1220 525 043 235 2077 Physical Exam: She is responsive but remains on the respirator. Chest is aerating well Heart reveals prominent systolic ejection murmur at the base Extremities reveal no edema and good pulses Current Medications: Current Medications Sig/Lico Start time Last Medication Dose Route Stop Time Status Admin Albuterol Sulfate 3 ML EVERY 4 HRS/AWAKE 11/24 1200 AC 11/29 INH 1111 Atovaquone 750 MG BID 11/27 2200 AC 11/29 PO 1123 Ceftriaxone Sodium 2,000 MG DAILY 11/26 1000 AC 11/29 IV 1122 Doxycycline Hyclate 100 MG Q12 11/26 1008 AC 11/29 Sodium Chloride 100 ML IV 1122 Fentanyl Citrate 1,000 MCG Q24H 11/26 1645 AC 11/29 Dextrose/Water 250 ML IV 0527 Furosemide 120 MG .STK-MED ONE 11/28 2007 DC IV 11/28 2008 Furosemide 100 MG CONTINOUS INFUSION 11/27 1530 11/27 Sodium Chloride 100 ML IV 1531 Heparin Sodium 25,000 UNIT Q24H 11/24 1545 11/29 (Porcine) IV 0545 Sodium Chloride 500 ML Ipratropium [place] 2.5 ML EVERY 4 HRS/AWAKE 11/24 1200 11/29 INH 1111 Lorazepam 50 MG Q10H 11/27 2100 DC 11/28 Sodium Chloride 500 ML IV 1003 Lorazepam 0.5 MG BID PRN 11/26 1030 11/29 IV 0049 Methylprednisolone 40 MG Q8 11/26 1400 AC 11/29 IV 0531 Pantoprazole Sodium 40 MG DAILY 11/26 1032 11/29 IV 1122 Polyethylene Glycol 17 GM DAILY 11/28 1000 AC 11/29 PO 1121 Senna/Docusate Sodium 1 TAB BID 11/28 1000 AC 11/29 PO 1122 Sodium Chloride 1,000 ML Q10H 11/26 0915 DC 11/28 IV 1023 Results Last 48 Hrs of Labs/Mics: Laboratory Tests 11/29/16 0530: Anion Gap 9, Estimated GFR 58 L, Glucose 189 H, Calcium 9.3, Phosphorus 3.7, Magnesium 3.1 H, Total Bilirubin 0.3, AST 19, ALT 33, Lactate Dehydrogenase 872 H, Albumin 2.8 L, APTT 78 H, CBC w Diff NO MAN DIFF REQ, RBC 2.63 L, MCV 93.3, MCH 30.6, RDW 15.7 H, MPV 7.7, Gran % 92.8 H, Lymphocytes % 3.9 L, Monocytes % 3.2, Eosinophils % 0, Basophils % 0.1, Absolute Granulocytes 15.5 H , Absolute Lymphocytes 0.7 L, Absolute Monocytes 0.5, Absolute Eosinophils 0, Absolute Basophils 0, PUBS MCHC 32.8 L 11/28/16 1710: APTT 69 H, CBC w Diff NO MAN DIFF REQ, RBC 2.53 L, MCV 94.0, MCH 30.8, RDW 15.4 H, MPV 7.9, Gran % 94.5 H, Lymphocytes % 2.5 L, Monocytes % 2.8, Eosinophils % 0.1, Basophils % 0.1, Absolute Granulocytes 13.0 H, Absolute Lymphocytes 0.3 L, Absolute Monocytes 0.4, Absolute Eosinophils 0, Absolute Basophils 0, PUBS MCHC 32.7 L 11/28/16 0600: Anion Gap 10, Estimated GFR > 60, Glucose 184 H, Calcium 8.5, Phosphorus 3.3, Magnesium 2.3, Total Bilirubin 0.3, AST 15, ALT 33, Albumin 2.6 L, APTT 73 H, CBC w Diff NO MAN DIFF REQ, RBC 2.49 L, MCV 94.4, MCH 30.4, RDW 15.4 H, MPV 7.8, Gran % 94.0 H, Lymphocytes % 2.5 L, Monocytes % 2.3, Eosinophils % 0, Basophils % 1.2, Absolute Granulocytes 12.6 H, Absolute Lymphocytes 0.3 L, Absolute Monocytes 0.3, Absolute Eosinophils 0, Absolute Basophils 0.2, PUBS MCHC 32.2 L 11/27/16 1830: Lactic Acid 1.6, APTT 70 H 11/27/16 1550: Lactic Acid 1.4 11/27/16 1550: Anion Gap 11, Estimated GFR > 60, Glucose 147 H, Calcium 9.2, Phosphorus 3.6, Magnesium 2.6 H, Total Bilirubin 0.4, AST 25, ALT 38, Lactate Dehydrogenase 1125 H, Albumin 2.9 L, CBC w Diff NO MAN DIFF REQ, RBC 2.66 L, MCV 94.6, MCH 30.5, RDW 14.9 H, MPV 8.0, Gran % 94.6 H, Lymphocytes % 2.3 L, Monocytes % 3.0, Eosinophils % 0, Basophils % 0.1, Absolute Granulocytes 12.8 H, Absolute Lymphocytes 0.3 L, Absolute Monocytes 0.4, Absolute Eosinophils 0, Absolute Basophils 0, PUBS MCHC 32.3 L 11/27/16 1532: Lactic Acid Cancelled Recent Imaging Studies: PATIENT: JAISON VELASQUEZ PRESENT AGE: 51 PATIENT ACCOUNT NO: [id number] : 64 LOCATION: [place] ORDERING PHYSICIAN: MARTINEZ CHU MD SERVICE DATE: 11/29/16 EXAM TYPE: RAD - XRY-PORTABLE CHEST XRAY EXAMINATION: XR PORTABLE CHEST CLINICAL INFORMATION: Intubation. COMPARISON: Chest x-ray 11/28/2016 TECHNIQUE: Portable AP view of the chest was obtained. 6:33 AM FINDINGS: Nasogastric tube in stomach. Endotracheal tube catheter in good position about 3 cm above the damari. Persistent bilateral airspace disease and interstitial thickening persistent dense opacification of the left lung base. Suspect bilateral pleural effusions present as well not changed since prior study. IMPRESSION: 1. Endotracheal tube 3 cm above damari. 2. No change in interstitial opacities and airspace disease, possibly from pulmonary edema, and small bilateral pleural effusions. Persistent dense consolidation at the left lung base which can be from the pulmonary edema and/or underlying infiltrate /atelectasis. DICTATED BY: JONNIE NG MD DATE/TIME DICTATED:11/29/16646 RAIL PROJECT ENGINEER:DESTINY DATE/TIME TRANSCRIBED:11/29/16646 CONFIDENTIAL, DO NOT COPY WITHOUT APPROPRIATE AUTHORIZATION. <Electronically signed in Other Vendor System> SIGNED BY: JONNIE NG MD 11/29/16 0654 Assessment/Plan Assessment/Plan The patient appears improved from a respiratory standpoint. Her sedation is being cut back. Hopefully she will be able to be extubated. I recommend continuing her on Lasix drip for now. IV heparin can be transitioned to Lovenox or Coumadin to reduce the volume of IV fluids. This will help with her fluid balance. Continue telemetry? Not applicable
[2016-11-29 16:00] VITALS: BP 110/78
--- NOTE | 2016-11-29 20:31 | NUR ---
PT SEDATED ON FENTANYL GTT AT 125MCG/HR. SEE FLOW SHEET FOR SAS SCORES. OPENS EYES TO VERBAL STIMULI, BUT DOES NOT TRACK OR FLOWS COMMANDS AT PRESENT. SOFT BILATERAL WRIST RESTRAINTS IN PLACE. ORALLY INTUBATED AND VENTED. BREATH SOUNDS CLEAR WITH DIMINISHED BREATH SOUNDS AT BASES BILATERALLY. SUCTIONING FOR SMALL AMT OF THICK YELLOW-DUMONT SECREATIONS. SEE FLOW SHEET FOR VS, 02 SATS, I/O'S. MONITOR SHOWS NSR, NO ECTOPY NOTED AT PRESENT. BP STABLE AT PRESENT. ON LASIX GTT AT 3MG/HR. ABD SOFT, NONTENDER, NONDISTENDED, HYPOACTIVE BOWEL SOUNDS. OGT IN PLACE-PLACEMENT CONFIRMED BY AIR-ON TUBE FEEDS-TOLERATING WELL AT PRESENT. SUH IN PLACE-DRAINING ADEQUATE AMT OF CLEAR YELLOW URINE AT PRESENT. SKIN INTACT. 2+ EDEMA BILATERAL UPPER EXTREMITIES, 1+ GENERALIZED.
[2016-11-30] VITALS: BP 130/80
[2016-11-30 05:01] LABS: ABSOLUTE BASOPHIL COUNT 0 /CUMM (0.0-0.2); ABSOLUTE EOSINOPHIL COUNT 0 /CUMM (0.0-0.7); ABSOLUTE GRANULOCYTE CT 14.3 /CUMM (1.4-6.5); ABSOLUTE LYMPH COUNT 0.8 /CUMM (1.2-3.4); ABSOLUTE MONOCYTE COUNT 0.7 /CUMM (0.10-0.60); BASOPHIL % 0.1 % (0.0-2.0); EOSINOPHIL % 0 % (0-5); GRANULOCYTE % 90.5 % (42.2-75.2); HEMATOCRIT 26.7 % (37-47); MEAN CORPUSCULAR HGB 30.3 PG (27.0-31.0); MEAN CORPUSCULAR HGB CONC 32.2 G/DL (33.0-37.0); MEAN CORPUSCULAR VOLUME 94.2 FL (81.0-99.0); MEAN PLATELET VOLUME 7.7 FL (7.4-10.4); PLATELET COUNT 405 /CUMM (130-400); RBC DISTRIBUTION WIDTH 15.6 % (11.5-14.5); RED BLOOD CELL CT 2.83 /CUMM (4.20-5.40); WHITE BLOOD CELL COUNT 15.8 /CUMM (4.8-10.8)
[2016-11-30 05:19] LABS: PT 13.1 SEC (9.4-12.5)
--- NOTE | 2016-11-30 07:17 | PN- Resident CRCU ---
Subjective HPI/CRCU Issues: No acute events overnight. She remains intubated and partially sedated on IV Fentanyl drip but is more awake and alert compared to yesterday. She continues on the IV Lasix drip with a negative fluid balance. She is currently on mechanical ventilation day #5 with the following vent settings: AC mode, tidal volume 500, FiO2 45%, RR 18 and PEEP 6. Objective Vital Signs & I&O Last 8 Hrs of Vitals and I&O: Intake & Output 11/30 1600 Intake Total 694 Output Total 1500 Balance -806 Intake, IV 484 Intake, Tube 60 Feeding Intake, Tube 150 Irrigant Number 1 Bowel Movements Output, Urine 1500 Exam General Appearance: intubated, obese, more awake and alert compared to yesterday , follows commands Head: atraumatic, normal appearance Ears, Nose, Throat: moist mucus membranes Respiratory: crackles scattered throughout bilateral lung verduzco, diminished bibasilar breath sounds Cardiovascular: regular rate/rhythm, normal S1 and S2, grade 3/6 systolic murmur Gastrointestinal: soft, non-tender, positive bowel sounds Extremities: no edema Cranial Nerves: PERRL Skin: warm/dry Current Medications: Current Medications Sig/Lico Start time Last Medication Dose Route Stop Time Status Admin Albuterol Sulfate 3 ML EVERY 4 HRS/AWAKE 11/24 1200 AC 11/30 INH 211 Atovaquone 750 MG BID 11/27 2199 DC 11/30 PO 0828 Ceftriaxone Sodium 2,000 MG DAILY 11/26 1000 DC 11/30 IV 0827 Doxycycline Hyclate 100 MG Q12 11/26 1008 DC 11/30 Sodium Chloride 100 ML IV 0827 Enoxaparin Sodium 90 MG BID 11/29 2200 AC 11/30 SC 0826 Fentanyl Citrate 1,000 MCG Q8H 11/30 1000 AC 11/30 Dextrose/Water 250 ML IV 1827 Fentanyl Citrate 1,000 MCG Q24H 11/26 1645 DC 11/30 Dextrose/Water 250 ML IV 0647 Furosemide 100 MG Q12H 11/30 0745 AC 11/30 Sodium Chloride 100 ML IV 0826 Furosemide 100 MG CONTINOUS INFUSION 11/27 1530 DC 11/27 Sodium Chloride 100 ML IV 1531 Insulin Human Regular 0 Q6 11/29 1800 AC 11/30 SC 0645 Ipratropium [place] 2.5 ML EVERY 4 HRS/AWAKE 11/24 1200 AC 11/30 INH 2117 Lorazepam 0.5 MG BID PRN 11/26 1030 AC 11/29 IV 0049 Methylprednisolone 40 MG BID 11/30 2200 AC IV Methylprednisolone 40 MG Q8 11/26 1400 DC 11/30 IV 0646 Pantoprazole Sodium 40 MG DAILY 11/26 1032 AC 11/30 IV 0828 Polyethylene Glycol 17 GM DAILY 11/28 1000 AC 11/30 PO 0827 Potassium Chloride 10 MEQ ONCE ONE 11/30 0730 DC 11/30 PO 11/30 0731 0826 Senna/Docusate Sodium 1 TAB BID 11/28 1000 AC 11/30 PO 0827 Results Results: Laboratory Tests 11/30 407 Chemistry Sodium (137 - 145 mmol/L) 142 Potassium (3.5 - 5.1 mmol/L) 3.9 Chloride (98 - 107 mmol/L) 103 Carbon Dioxide (22 - 30 mmol/L) 29 Anion Gap (5 - 16) 11 BUN (7 - 17 mg/dL) 36 H Creatinine (0.5 - 1.0 mg/dL) 1.1 H Estimated GFR (>60 ml/min) 52 L Glucose (65 - 99 mg/dL) 182 H Calcium (8.4 - 10.2 mg/dL) 8.7 Phosphorus (2.5 - 4.5 mg/dL) 4.5 Magnesium (1.6 - 2.3 mg/dL) 2.5 H Total Bilirubin (0.2 - 1.3 mg/dL) 0.3 AST (14 - 36 U/L) 19 ALT (9 - 52 U/L) 37 Albumin (3.5 - 5.0 g/dL) 2.8 L Coagulation PT (9.4 - 12.5 SEC) 13.1 H INR (0.90 - 1.19) 1.25 H Hematology CBC w Diff MAN DIFF ORDERED WBC (4.8 - 10.8 /CUMM) 15.8 H RBC (4.20 - 5.40 /CUMM) 2.83 L Hgb (12.0 - 16.0 G/DL) 8.6 L Hct (37 - 47 %) 26.7 L MCV (81.0 - 99.0 FL) 94.2 MCH (27.0 - 31.0 PG) 30.3 RDW (11.5 - 14.5 %) 15.6 H Plt Count (130 - 400 /CUMM) 405 H MPV (7.4 - 10.4 FL) 7.7 Gran % (42.2 - 75.2 %) 90.5 H Lymphocytes % (20.5 - 51.1 %) 5.2 L Monocytes % (1.7 - 9.3 %) 4.2 Eosinophils % (0 - 5 %) 0 Basophils % (0.0 - 2.0 %) 0.1 Absolute Granulocytes (1.4 - 6.5 /CUMM) 14.3 H Absolute Lymphocytes (1.2 - 3.4 /CUMM) 0.8 L Absolute Monocytes (0.10 - 0.60 /CUMM) 0.7 H Absolute Eosinophils (0.0 - 0.7 /CUMM) 0 Absolute Basophils (0.0 - 0.2 /CUMM) 0 Platelet Estimate (ADEQUATE) INCREASED Hypochromic-Microcytic 2+ PUBS MCHC (33.0 - 37.0 G/DL) 32.2 L CXR Findings: 1. Endotracheal tube tip approximately 3.5 cm above the damari. 2. No significant change in appearance of the lungs. Findings are suggestive of pulmonary edema with bilateral pleural effusions. Clinical correlation requested. 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 Problem List: 1. Rheumatic fever with cardiac involvement 2. Severe aortic stenosis 3. Acute hypoxemic respiratory failure 4. Acute diastolic CHF (congestive heart failure) 5. Bicuspid aortic valve Pain Ratin Tomorrow's Labs & Rationales: CBC and ICU bundle (ICU patient) Plan Respiratory: #Acute hypoxemic respiratory failure: On mechanical ventilation day #5 with the following vent settings: AC mode, tidal volume 500, FiO2 45%, RR 18 and PEEP 6. Significantly improved from a respiratory perspective, with decreasing oxygen requirement and PEEP. CXR with persistent pulmonary edema and bilateral pleural effusions. * Continue mechanical ventilation. * Continue to check CXR daily. * Decrease Solumedrol 40 mg IV to BID. * Continue to taper down FiO2 and PEEP as tolerated. * Continue Protonix 40 mg IV QD for GI PPx. Infectious Diseases: #Probable multilobar pneumonia: Remains afebrile and with persistent mild leukocytosis. Infectious work-up negative so far. All cultures including bronchoalveolar lavage bacterial cultures are negative. KESHIA with no evidence of infective endocarditis. S/p 7 days of ceftriaxone and doxycycline which should be sufficient to treat CAP. * ID following. Appreciate their recs. * Discontinue doxycycline and ceftriaxone. Monitor off antibiotics. * Discontinue atovaquone as PCP is unlikely. * Await bronchoscopy cytology. Cardiovascular: #CHF 2/2 severe aortic stenosis: [place] to be the most likely etiology for the acute hypoxemic respiratory failure, given significant improvement after starting IV Lasix and KESHIA revealing a bicuspid aortic valve with severe valvular stenosis. Remains on IV Lasix drip with negative fluid balance. * Cardiology following. Appreciate their recs. * Continue to monitor strict I/Os. * Continue IV Lasix drip with close monitoring of BUN and creatinine. * Continue to monitor BP closely. * Will most likely need cardiac catheterization and probably aortic valve replacement per cardiology. Hematology: #Anemia: H/H stable, 8.6/26.7 today. * Continue to monitor H/H. #CVA 2/2 cardiac emboli: Was taking warfarin prior to admission. Presented with subtherapeutic INR and was started on IV heparin. Transitioned to Lovenox yesterday to reduce the volume of IVF to help maintain negative fluid balance. * Continue Lovenox 90 mg SQ BID. Metabolic: #DAO: BUN/Cr has been gradually uptrending since starting IV Lasix drip, 36/1.1 today. * Continue to monitor kidney function closely while patient is on Lasix drip. * Continue to monitor electrolytes and replete to K > 4, Mg > 2 and Phos > 3. Alimentary: Tube feeds Neurological: Sedated on fentanyl IV drip but more awake and alert today. * Wean down fentanyl drip as tolerated with the hope of extubation soon. DVT/Prophylaxis: mechanical, pharmacological Code Status: Full Code
--- NOTE | 2016-11-30 07:42 | NUR ---
PT REMAINED ON FENTANYL GTT AT 125MCG/HR THOUGHOUT [id number] FOR SHIFT. OPENS EYES TO VERBAL STIMULI, FOLLOW COMMANDS, BILATERAL WRIST RESTRAINTS REMAIN IN PLACE. SUCTIONING FOR MINIMAL TO SCANT AMT OF THICK YELLOW SECREATIONS. NSR, BP STABLE THOUGHOUT SHIFT. LASIX GTT REMAINS AT 3MG/HR-GOOD URINE OUTPUT FOR SHIFT. TOLERATING TUBE FEEDS WELL THOUGHOUT SHIFT. NO OTHER CHANGE IN PT ASSESSMENTS THOUGHOUT SHIFT
[2016-11-30 08:00] VITALS: BP 137/83
--- NOTE | 2016-11-30 09:19 | PN- CRCU ---
Subjective HPI/Critical Care Issues: The patient is much more awake today. She remains on mechanical ventilation, noting she is only requiring 45% oxygen with 6 of PEEP. She is afebrile. She continues to be on a Lasix drip for negative fluid balance. She also remains on fentanyl but once again, she is awake and alert. She continues to have bilateral opacities, worse in the left lower lobe. All cultures are negative to date. Objective Current Medications: Current Medications Sig/Lico Start time Last Medication Dose Route Stop Time Status Admin Albuterol Sulfate 3 ML EVERY 4 HRS/AWAKE 11/24 1200 AC 11/30 INH 0746 Atovaquone 750 MG BID 11/27 2200 AC 11/30 PO 0828 Ceftriaxone Sodium 2,000 MG DAILY 11/26 1000 AC 11/30 IV 0827 Doxycycline Hyclate 100 MG Q12 11/26 1008 AC 11/30 Sodium Chloride 100 ML IV 0827 Enoxaparin Sodium 90 MG BID 11/29 2200 AC 11/30 SC 0826 Enoxaparin Sodium 50 MG ONCE ONE 11/29 1700 DC 11/29 SC 11/29 1701 1836 Enoxaparin Sodium 40 MG DAILY 11/29 1201 DC 11/29 SC 1346 Fentanyl Citrate 1,000 MCG Q24H 11/26 1645 AC 11/30 Dextrose/Water 250 ML IV 0647 Furosemide 100 MG Q12H 11/30 0745 AC 11/30 Sodium Chloride 100 ML IV 0826 Furosemide 100 MG CONTINOUS INFUSION 11/27 1530 DC 11/27 Sodium Chloride 100 ML IV 1531 Heparin Sodium 25,000 UNIT Q24H 11/24 1545 DC 11/29 (Porcine) IV 0545 Sodium Chloride 500 ML Insulin Human Regular 0 TIDAC/HS 11/29 2100 CAN SC Insulin Human Regular 0 Q6 11/29 1800 AC 11/30 SC 0645 Ipratropium [place] 2.5 ML EVERY 4 HRS/AWAKE 11/24 1200 AC 11/30 INH 0746 Lorazepam 0.5 MG BID PRN 11/26 1030 AC 11/29 IV 0049 Methylprednisolone 40 MG Q8 11/26 1400 AC 11/30 IV 0646 Pantoprazole Sodium 40 MG DAILY 11/26 1032 AC 11/30 IV 0828 Polyethylene Glycol 17 GM DAILY 11/28 1000 AC 11/30 PO 0827 Potassium Chloride 10 MEQ ONCE ONE 11/30 0730 DC 11/30 PO 11/30 0731 0826 Senna/Docusate Sodium 1 TAB BID 11/28 1000 AC 11/30 PO 0827 Vital Signs & I&O Last 24 Hrs of Vitals and I&O: Vital Signs Date Time Temp Pulse Resp B/P Pulse O2 O2 Flow FiO2 Ox Delivery Rate 11/30 0754 45 11/30 0544 45 11/30 0400 95 Ventilator 45% 11/30 0307 45 11/30 0027 45 11/30 0000 95 Ventilator 45% 11/30 0000 97.2 89 19 130/80 95 Ventilator 45% 11/29 2157 45 11/29 2000 96 Ventilator 45% 11/29 1907 45 11/29 1600 6 Ventilator 45% 11/29 1600 97.3 84 18 110/78 95 Ventilator 45% 11/29 1551 45 11/29 1405 45 11/29 1200 94 Ventilator 45% 11/29 1116 45 Intake & Output 11/30 1600 11/30 0800 11/30 0000 Intake Total 857 985 Output Total 1420 700 Balance -563 285 Intake, IV 271 385 Intake, Tube 491 480 Feeding Intake, Tube 95 120 Irrigant Number 0 0 Bowel Movements Output, Urine 1420 700 Physical Exam General Appearance: intubated, comfortable, following commands Ears, Nose, Throat: moist mucus membranes Respiratory: crackles scattered througout bilateral lung verduzco, diminished bibasilar breath sounds Cardiovascular: regular rate/rhythm, normal S1 and S2, grade 3/6 systolic murmur Gastrointestinal: soft, non-tender, positive bowel sounds Extremities: no edema, warm and dry Results Last 24 Hrs of Lab Results: Laboratory Tests 11/30/16 0408: Anion Gap 11, Estimated GFR 52 L, Glucose 182 H, Calcium 8.7, Phosphorus 4.5, Magnesium 2.5 H, Total Bilirubin 0.3, AST 19, ALT 37, Albumin 2.8 L, PT 13.1 H, INR 1.25 H, CBC w Diff MAN DIFF ORDERED, RBC 2.83 L, MCV 94.2, MCH 30.3, RDW 15.6 H, MPV 7.7, Gran % 90.5 H, Lymphocytes % 5.2 L, Monocytes % 4.2, Eosinophils % 0, Basophils % 0.1, Absolute Granulocytes 14.3 H, Absolute Lymphocytes 0.8 L, Absolute Monocytes 0.7 H, Absolute Eosinophils 0, Absolute Basophils 0, Platelet Estimate INCREASED, Hypochromic-Microcytic 2+, PUBS MCHC 32.2 L 11/29/16 1730: APTT Cancelled Diagnostic Data CXR Findings: 1. Endotracheal tube 3 cm above damari. 2. No change in interstitial opacities and airspace disease, possibly from pulmonary edema, and small bilateral pleural effusions. Persistent dense consolidation at the left lung base which can be from the pulmonary edema and/or underlying infiltrate /atelectasis. Impression/Plan Impression/Plan Impression/Plan: 1. Acute hypoxemic respiratory failure and mediastinal lymphadenopathy, rule out etiology. Differential diagnosis includes an infectious/inflammatory process versus pulmonary edema. The patient has significantly improved following diuresis. All cultures are negative to date. 2. Leukocytosis, likely secondary to steroids. 3. Bicuspid aortic valve with aortic stenosis. 4. 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 5. Steroid dependent, seronegative rheumatoid arthritis. 6. Normocytic anemia. Recommendations: * Attempt to wean oxygen down to 40% with 5 of PEEP. * We will need to discuss diuresis with cardiology noting at the patient's BUN and creatinine are now elevated. * Continue to monitor culture data. * Continue empiric antibiotics including ceftriaxone, doxycycline and Mepron. * Continue IV Solu-Medrol, but decrease to 40 mg every 12 hours.. * Wean fentanyl drip down to off as tolerated. * Continue IV heparin. * Continue DVT/GI prophylaxis/ventilator bundle. * The patient remains critically ill and needs ongoing close follow-up. Code Status: Full Code
--- NOTE | 2016-11-30 09:22 | ECHOCARDIOGRAM REPORT ---
JAISON VELASQUEZ Age: 51 : Gender: F Exam Date: 11/27/2016 11:03 Exam Location: [facility] Ht (in): 65 Wt (lb): 201 BSA: 2.08 BP: 88 / 60 Ordering Physician: MARTINEZ CHU MD Referring Physician: MARTINEZ CHU MD Technologist: Sridhar Santiago [facility] Room Number: 111 Indications: INFECTIVE ENDOCARDITIS Rhythm: Sinus Technical Quality: Good Medications Lidocaine [place]. Propofol administered by Anesthesiology. Ease of Transducer Insertion No Difficulty Complications None. Technical Difficulty FINDINGS Left Ventricle Normal size left ventricle. No obvious regional wall motion abnormalities. Left ventricular wall thickness increased. Normal left ventricular ejection fraction estimated at 55-60%. Right Ventricle Mild right ventricular dilatation. Right Atrium Mild right atrial dilatation. Left Atrium Moderate left atrial dilatation. LA Appendage Spontaneous echo contrast seen in the left atrial appendage. IA Septum Normal interatrial septum. Mitral Valve Mitral valve thickened. Fusion of the mitral valve chordae. Mild-to- moderate mitral stenosis. [id number] mitral regurgitation. Aortic Valve Bicuspid aortic valve. Diffuse thickening of the aortic valve cusps with reduced excursion. Severe aortic stenosis. Tricuspid Valve Tricuspid valve not well visualized, grossly normal. Mild tricuspid regurgitation. Pulmonic Valve Pulmonic valve not well visualized, grossly normal. Trace to mild pulmonic regurgitation. Pericardium Small pericardial effusion. Great Vessels Normal size aortic root and proximal ascending aorta. Grade II plaque seen in the aortic arch. Grade I plaque seen in the descending aorta. CONCLUSIONS 1. 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 There is evidence of severe valvular stenosis with a PG of 78 mmHg and a MG of 48 mmHg. The planimetered valve area was difficult to assess but appears to be about 0.7 - 0.8 cm2. 2. Thickening of the mitral leaflets is present with rheumatic changes present extending into the subvalvular chordal structures. The PDG is 24 mmHg with a MDG of 14 mmHg and an estimated MVA of 1.8 - 2.0 cm2 with mild to moderate mitral insufficiency and mild to moderate left atrial enlargement. 3. The left atrial appendage is enlarged and mildly hypokinetic with spontaneous contrast present but no evidence of thrombus. 4. The pulmonary venous anatomy is normal bilaterally. 5. A small pericardial effusion is present which is hemodynamically insignificant. 6. THe left ventricular chamber size is normal with mild concentric hypertrophy and a normal ejection fraction.\ 7. Mild enlargement of the right heart chambers is present with minimal to mild tricuspid and pulmonic insufficiency. THe RV systolic pressure could not be accurately assessed. 8. There is no evidence of atrial level shunt. 9. Mild atheromatous plaque is noted in the distal aortic arch and proximal descending thoracic aorta. Jacek Lira M.D. (Electronically Signed) Final Date: 30 November 2016 09:22 MEASUREMENTS (Male / Female) Normal Values
--- NOTE | 2016-11-30 10:08 | RADIOLOGY REPORT ---
EXAMINATION: XR PORTABLE CHEST CLINICAL INFORMATION: Intubated and ventilated patient. Confirm ET tube positioning. COMPARISON: Several prior chest x-rays, most recent of which is dated 11/29/2016. TECHNIQUE: Portable AP semierect view of the chest was obtained. FINDINGS: Endotracheal tube tip is approximately 3.5 cm above the damari, unchanged. Enteric tube is seen coursing into the abdomen with tip not included. The cardiac silhouette is enlarged, unchanged and partially accentuated by patient rotation. Low lung volumes persist with diffuse hazy mid and lower lung opacities with obscuration of the hemidiaphragms, unchanged. No pneumothorax is seen. Bony structures are grossly unremarkable. IMPRESSION: 1. Endotracheal tube tip approximately 3.5 cm above the damari. 2. No significant change in appearance of the lungs. Findings are suggestive of pulmonary edema with bilateral pleural effusions. Clinical correlation requested.
--- NOTE | 2016-11-30 10:51 | PN- Infect Dx ---
Subjective Subjective: Events of the past week since admission reviewed. She remains afebrile on steroids and has apparently improved, particularly over the weekend, with the Lasix drip. She does not report any complaints at this time. Objective Last 24 Hrs of Vital Signs/I&O Vital Signs Date Time Temp Pulse Resp B/P Pulse O2 O2 Flow FiO2 Ox Delivery Rate 11/30 0800 97.2 90 18 137/83 96 Ventilator 45% 11/30 0754 45 11/30 0544 45 11/30 0400 95 Ventilator 45% 11/30 0307 45 11/30 0027 45 11/30 0000 95 Ventilator 45% 11/30 0000 97.2 89 19 130/80 95 Ventilator 45% 11/29 2157 45 11/29 2000 96 Ventilator 45% 11/29 1907 45 11/29 1600 6 Ventilator 45% 11/29 1600 97.3 84 18 110/78 95 Ventilator 45% 11/29 1551 45 11/29 1405 45 11/29 1200 94 Ventilator 45% 11/29 1116 45 Intake & Output 11/30 1600 11/30 0800 11/30 0000 Intake Total 857 985 Output Total 1420 700 Balance -563 285 Intake, IV 271 385 Intake, Tube 491 480 Feeding Intake, Tube 95 120 Irrigant Number 0 0 Bowel Movements Output, Urine 1420 700 Physical Exam Other Physical Findings: She is awake and alert on the ventilator in no acute distress Lungs are clear Heart regular rhythm with a 3/6 systolic ejection murmur Abdomen is soft, mildly tender on palpation, with no guarding or rebound, positive bowel sounds Extremities no cyanosis, clubbing or edema Scott catheter remains in place Results Last 24 Hours of Lab Results: Laboratory Tests 11/30 11/29 0408 1730 Chemistry Sodium (137 - 145 mmol/L) 142 Potassium (3.5 - 5.1 mmol/L) 3.9 Chloride (98 - 107 mmol/L) 103 Carbon Dioxide (22 - 30 mmol/L) 29 Anion Gap (5 - 16) 11 BUN (7 - 17 mg/dL) 36 H Creatinine (0.5 - 1.0 mg/dL) 1.1 H Estimated GFR (>60 ml/min) 52 L Glucose (65 - 99 mg/dL) 182 H Calcium (8.4 - 10.2 mg/dL) 8.7 Phosphorus (2.5 - 4.5 mg/dL) 4.5 Magnesium (1.6 - 2.3 mg/dL) 2.5 H Total Bilirubin (0.2 - 1.3 mg/dL) 0.3 AST (14 - 36 U/L) 19 ALT (9 - 52 U/L) 37 Albumin (3.5 - 5.0 g/dL) 2.8 L Coagulation PT (9.4 - 12.5 SEC) 13.1 H INR (0.90 - 1.19) 1.25 H APTT Cancelled Hematology CBC w Diff MAN DIFF ORDERED WBC (4.8 - 10.8 /CUMM) 15.8 H RBC (4.20 - 5.40 /CUMM) 2.83 L Hgb (12.0 - 16.0 G/DL) 8.6 L Hct (37 - 47 %) 26.7 L MCV (81.0 - 99.0 FL) 94.2 MCH (27.0 - 31.0 PG) 30.3 RDW (11.5 - 14.5 %) 15.6 H Plt Count (130 - 400 /CUMM) 405 H MPV (7.4 - 10.4 FL) 7.7 Gran % (42.2 - 75.2 %) 90.5 H Lymphocytes % (20.5 - 51.1 %) 5.2 L Monocytes % (1.7 - 9.3 %) 4.2 Eosinophils % (0 - 5 %) 0 Basophils % (0.0 - 2.0 %) 0.1 Absolute Granulocytes (1.4 - 6.5 /CUMM) 14.3 H Absolute Lymphocytes (1.2 - 3.4 /CUMM) 0.8 L Absolute Monocytes (0.10 - 0.60 /CUMM) 0.7 H Absolute Eosinophils (0.0 - 0.7 /CUMM) 0 Absolute Basophils (0.0 - 0.2 /CUMM) 0 Platelet Estimate (ADEQUATE) INCREASED Hypochromic-Microcytic 2+ PUBS MCHC (33.0 - 37.0 G/DL) 32.2 L Last 24 Hours of Michael Results: No recent cultures Recent Imaging Studies: Chest x-ray November 30, personally reviewed, reveals diffuse hazy mid and lower lung opacities, with bilateral pleural effusions, unchanged from previous study Assessment/Plan Impression: 51 year old woman, maintained on low dose chronic steroids, with extensive medical history including 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 The etiology of her respiratory failure is unclear, with cultures negative, and, given her recent improvement with the Lasix drip and her KESHIA findings, pulmonary edema is considered likely. She has received a week of antibiotics to date, which should be adequate to treat a community acquired pneumonia. Suggestion: 1. Follow-up cytology results from her recent bronchoscopy 2. Discontinue Atovaquone if no evidence of PCP 3. Discontinue Ceftriaxone and Doxycycline and follow off antibiotics
--- NOTE | 2016-11-30 12:00 | PN- Cardiology ---
Subjective Subjective: The patient remains intubated. Antibiotics have been discontinued. She continues to be on a Lasix drip at 3 mg per hour. She is awake on the ventilator, but further history is not obtainable from the patient. Objective Vital Signs and I&Os Vital Signs Date Time Temp Pulse Resp B/P Pulse O2 O2 Flow FiO2 Ox Delivery Rate 11/30 0800 94 Ventilator 45% 11/30 0800 97.2 90 18 137/83 96 Ventilator 45% 11/30 0754 45 11/30 0544 45 11/30 0400 95 Ventilator 45% 11/30 0307 45 11/30 0027 45 11/30 0000 95 Ventilator 45% 11/30 0000 97.2 89 19 130/80 95 Ventilator 45% 11/29 2157 45 11/29 2000 96 Ventilator 45% 11/29 1907 45 11/29 1600 6 Ventilator 45% 11/29 1600 97.3 84 18 110/78 95 Ventilator 45% 11/29 1551 45 11/29 1405 45 11/29 1200 94 Ventilator 45% Intake & Output 11/30 1600 11/30 0800 11/30 0000 11/29 1600 11/29 0800 11/29 0000 Intake Total 348 472 0525 1137 1574.6 Output Total 1420 170 900 4411 525 Balance -563 285 210 -83 1049.6 Intake, IV 271 385 914 804 9828.6 Intake, Other 670 290 Intake, Tube 491 480 257 195 Feeding Intake, Tube 95 120 190 Irrigant Number 0 0 Bowel Movements Output, Urine 1420 669 613 9021 525 Physical Exam: Gen: NAD HEENT: normal Lungs: Bilateral rhonci, normal resp. effort Heart: RRR, S1, S2, 3/6 systolic murmur Abdomen: Soft, nontender, no masses Extremities: No clubbing, cyanosis, or edema. Neuro: Alert and oriented x 3, cranial nerves intact Current Medications: Current Medications Sig/Lico Start time Last Medication Dose Route Stop Time Status Admin Albuterol Sulfate 3 ML EVERY 4 HRS/AWAKE 11/24 1200 AC 11/30 INH 0746 Atovaquone 750 MG BID 11/27 2200 DC 11/30 PO 0828 Ceftriaxone Sodium 2,000 MG DAILY 11/26 1000 DC 11/30 IV 0827 Doxycycline Hyclate 100 MG Q12 11/26 1008 DC 11/30 Sodium Chloride 100 ML IV 0827 Enoxaparin Sodium 90 MG BID 11/29 2200 AC 11/30 SC 0826 Enoxaparin Sodium 50 MG ONCE ONE 11/29 1700 DC 11/29 SC 11/29 1701 1836 Enoxaparin Sodium 40 MG DAILY 11/29 1201 DC 11/29 SC 1346 Fentanyl Citrate 1,000 MCG Q8H 11/30 1000 AC Dextrose/Water 250 ML IV Fentanyl Citrate 1,000 MCG Q24H 11/26 1645 DC 11/30 Dextrose/Water 250 ML IV 0647 Furosemide 100 MG Q12H 11/30 0745 AC 11/30 Sodium Chloride 100 ML IV 0826 Furosemide 100 MG CONTINOUS INFUSION 11/27 1530 DC 11/27 Sodium Chloride 100 ML IV 1531 Heparin Sodium 25,000 UNIT Q24H 11/24 1545 DC 11/29 (Porcine) IV 0545 Sodium Chloride 500 ML Insulin Human Regular 0 TIDAC/HS 11/29 2100 CAN SC Insulin Human Regular 0 Q6 11/29 1800 AC 11/30 SC 0645 Ipratropium [place] 2.5 ML EVERY 4 HRS/AWAKE 11/24 1200 AC 11/30 INH 0746 Lorazepam 0.5 MG BID PRN 11/26 1030 AC 11/29 IV 0049 Methylprednisolone 40 MG BID 11/30 2200 AC IV Methylprednisolone 40 MG Q8 11/26 1400 DC 11/30 IV 0646 Pantoprazole Sodium 40 MG DAILY 11/26 1032 AC 11/30 IV 0828 Polyethylene Glycol 17 GM DAILY 11/28 1000 AC 11/30 PO 0827 Potassium Chloride 10 MEQ ONCE ONE 11/30 0730 DC 11/30 PO 11/30 0731 0826 Senna/Docusate Sodium 1 TAB BID 11/28 1000 AC 11/30 PO 0827 Results Last 48 Hrs of Labs/Mics: Laboratory Tests 11/30/16 0408: Anion Gap 11, Estimated GFR 52 L, Glucose 182 H, Calcium 8.7, Phosphorus 4.5, Magnesium 2.5 H, Total Bilirubin 0.3, AST 19, ALT 37, Albumin 2.8 L, PT 13.1 H, INR 1.25 H, CBC w Diff MAN DIFF ORDERED, RBC 2.83 L, MCV 94.2, MCH 30.3, RDW 15.6 H, MPV 7.7, Gran % 90.5 H, Lymphocytes % 5.2 L, Monocytes % 4.2, Eosinophils % 0, Basophils % 0.1, Absolute Granulocytes 14.3 H, Absolute Lymphocytes 0.8 L, Absolute Monocytes 0.7 H, Absolute Eosinophils 0, Absolute Basophils 0, Platelet Estimate INCREASED, Hypochromic-Microcytic 2+, PUBS MCHC 32.2 L 11/29/16 1730: APTT Cancelled 11/29/16 0530: Anion Gap 9, Estimated GFR 58 L, Glucose 189 H, Calcium 9.3, Phosphorus 3.7, Magnesium 3.1 H, Total Bilirubin 0.3, AST 19, ALT 33, Lactate Dehydrogenase 872 H, Albumin 2.8 L, APTT 78 H, CBC w Diff NO MAN DIFF REQ, RBC 2.63 L, MCV 93.3, MCH 30.6, RDW 15.7 H, MPV 7.7, Gran % 92.8 H, Lymphocytes % 3.9 L, Monocytes % 3.2, Eosinophils % 0, Basophils % 0.1, Absolute Granulocytes 15.5 H , Absolute Lymphocytes 0.7 L, Absolute Monocytes 0.5, Absolute Eosinophils 0, Absolute Basophils 0, PUBS MCHC 32.8 L 11/28/16 1710: APTT 69 H, CBC w Diff NO MAN DIFF REQ, RBC 2.53 L, MCV 94.0, MCH 30.8, RDW 15.4 H, MPV 7.9, Gran % 94.5 H, Lymphocytes % 2.5 L, Monocytes % 2.8, Eosinophils % 0.1, Basophils % 0.1, Absolute Granulocytes 13.0 H, Absolute Lymphocytes 0.3 L, Absolute Monocytes 0.4, Absolute Eosinophils 0, Absolute Basophils 0, PUBS MCHC 32.7 L Recent Imaging Studies: Chest x-ray: 1. Endotracheal tube tip approximately 3.5 cm above the damari. 2. No significant change in appearance of the lungs. Findings are suggestive of pulmonary edema with bilateral pleural effusions. Clinical correlation requested. Assessment/Plan Assessment/Plan Assessment: 1. Bicuspid aortic valve with aortic stenosis 2. Respiratory failure 3. Acute diastolic heart failure 4. Increasing BUN and creatinine on diuretic therapy Plan: * Would continue Lasix drip for now with close monitoring of BUN and creatinine. * Monitor input and output. Continue telemetry? Yes
[2016-11-30 16:00] VITALS: BP 134/80
--- NOTE | 2016-11-30 19:31 | NUR ---
AM TUBE FEED RESIDUAL >400. PER DR NICHOLE ALBERT ON HOLD. 1500 RESIDUAL >150. REPORTED TO DR VARELA. PER DR KIM OFF. PT REMAINED INTUBATED AC 18 500 45% 6, SATS 95%. COARSE LUNG SOUNDS. REMAINS DISTRESS FREE. ON FENTANYL GTT, TITRATED TO 50MCG IN EFFORT TO BE OFF SEDATION FOR ATTEMPTING EXTUBATION ON 12/01. PT REMAINS SAS 4. FOLLOWING SIMPLE COMMANDS, VERY WEAK. LASIX GTT CONTINUED AT 3MG/HR. SUH INSITU, 1500ML CLR YELLOW U.O/8 HRS. VSS.
[2016-12-01] VITALS: BP 124/80
--- NOTE | 2016-12-01 | NUR ---
PATIENT OPENS EYES SPONTANEOUSLY. WILL FOLLOW COMMANDS. MONITOR SINUS TACHYCARDIA.BP 124/80.ETT TO VENTILATOR AT 40%.FENTANYL DRIP DECREASED TO 25 MCG/HR.LASIX DRIP CONTINUES AT 3MG/HR.
--- NOTE | 2016-12-01 01:00 | NUR ---
PATIENT WILL OPEN EYES SPONTANEOUSLY. MOVES UPPER EXTREMITIES WELL. SOFT WRIST RESTRAINTS ON TO PREVENT KEOFEED FROM BECOMING DISLODGED.TUBE FEED AT GOAL VIA KEOFEED.MONITOR SINUS RHYTHM.O2 SAT=97% ON 3 L OF O2
[2016-12-01 05:23] LABS: ABSOLUTE BASOPHIL COUNT 0 /CUMM (0.0-0.2); ABSOLUTE EOSINOPHIL COUNT 0 /CUMM (0.0-0.7); ABSOLUTE GRANULOCYTE CT 13.6 /CUMM (1.4-6.5); ABSOLUTE LYMPH COUNT 0.8 /CUMM (1.2-3.4); ABSOLUTE MONOCYTE COUNT 0.6 /CUMM (0.10-0.60); BASOPHIL % 0 % (0.0-2.0); EOSINOPHIL % 0 % (0-5); GRANULOCYTE % 90.5 % (42.2-75.2); HEMATOCRIT 28.1 % (37-47); MEAN CORPUSCULAR HGB 30.9 PG (27.0-31.0); MEAN CORPUSCULAR HGB CONC 33.5 G/DL (33.0-37.0); MEAN CORPUSCULAR VOLUME 92.1 FL (81.0-99.0); MEAN PLATELET VOLUME 7.4 FL (7.4-10.4); PLATELET COUNT 464 /CUMM (130-400); RBC DISTRIBUTION WIDTH 15.8 % (11.5-14.5); RED BLOOD CELL CT 3.05 /CUMM (4.20-5.40)
--- NOTE | 2016-12-01 07:19 | PN- Resident CRCU ---
Subjective HPI/CRCU Issues: No acute events overnight. She remains intubated and on mechanical ventilation but is awake and alert. She offers no complaints. She continues to have good diuresis on the IV Lasix drip. She remains afebrile off antibiotics. She is currently on mechanical ventilation day #6 with the following vent settings: AC mode, tidal volume 500, FiO2 40%, RR 18 and PEEP 5. Objective Vital Signs & I&O Last 8 Hrs of Vitals and I&O: Vital Signs Date Time Temp Pulse Resp B/P Pulse O2 O2 Flow FiO2 Ox Delivery Rate 12/01 0751 40 12/01 0547 40 12/01 0400 98 Ventilator 40% 12/01 0339 40 12/01 0112 40 12/01 0000 98.7 115 18 124/80 92 Ventilator 40% 12/01 0000 92 Ventilator 40% 11/30 2215 40 11/30 2000 94 Ventilator 40% 11/30 1910 40 11/30 1605 45 11/30 1600 97.4 97 20 134/80 95 Nasal 45% Cannula 11/30 1600 95 Ventilator 45% 11/30 1552 Ventilator 100% 11/30 1435 45 11/30 1205 45 11/30 1200 95 Ventilator 45% Exam General Appearance: alert, awake, intubated, obese, follows commands Respiratory: lungs clear Cardiovascular: regular rate/rhythm, normal S1 and S2, grade 3/6 systolic murmur Gastrointestinal: soft, non-tender, positive bowel sounds Extremities: no edema, no clubbing or cyanosis Skin: warm/dry Current Medications: Current Medications Sig/Lico Start time Last Medication Dose Route Stop Time Status Admin Albuterol Sulfate 3 ML EVERY 4 HRS/AWAKE 11/24 1200 AC 12/01 INH 0748 Atovaquone 750 MG BID 11/27 2199 DC 11/30 PO 0828 Ceftriaxone Sodium 2,000 MG DAILY 11/26 1000 DC 11/30 IV 0827 Doxycycline Hyclate 100 MG Q12 11/26 1008 DC 11/30 Sodium Chloride 100 ML IV 0827 Enoxaparin Sodium 90 MG BID 11/29 2199 AC 11/30 SC 2159 Fentanyl Citrate 1,000 MCG Q8H 11/30 1000 AC 12/01 Dextrose/Water 250 ML IV 0200 Fentanyl Citrate 1,000 MCG Q24H 11/26 1645 DC 11/30 Dextrose/Water 250 ML IV 0647 Furosemide 100 MG Q12H 11/30 0745 AC 11/30 Sodium Chloride 100 ML IV 2000 Insulin Aspart 2 UNITS ONCE ONE 12/01 0030 CAN SC 12/01 0031 Insulin Human Regular 2 UNITS ONCE ONE 12/01 0030 DC 12/01 SC 12/01 0031 0031 Insulin Human Regular 0 Q6 11/29 1800 AC 11/30 SC 0645 Ipratropium [place] 2.5 ML EVERY 4 HRS/AWAKE 11/24 1200 AC 12/01 INH 0749 Lorazepam 0.5 MG BID PRN 11/26 1030 AC 11/29 IV 0049 Methylprednisolone 40 MG BID 11/30 2200 AC 11/30 IV 2159 Methylprednisolone 40 MG Q8 11/26 1400 DC 11/30 IV 0646 Pantoprazole Sodium 40 MG DAILY 11/26 1032 AC 11/30 IV 0828 Polyethylene Glycol 17 GM DAILY 11/28 1000 AC 11/30 PO 0827 Senna/Docusate Sodium 1 TAB BID 11/28 1000 AC 11/30 PO 2158 Results Results: Laboratory Tests 12/01 0445 Chemistry Sodium (137 - 145 mmol/L) 139 Potassium (3.5 - 5.1 mmol/L) 4.1 Chloride (98 - 107 mmol/L) 94 L Carbon Dioxide (22 - 30 mmol/L) 34 H Anion Gap (5 - 16) 11 BUN (7 - 17 mg/dL) 34 H Creatinine (0.5 - 1.0 mg/dL) 1.0 Estimated GFR (>60 ml/min) 58 L Glucose (65 - 99 mg/dL) 145 H Calcium (8.4 - 10.2 mg/dL) 9.1 Phosphorus (2.5 - 4.5 mg/dL) 4.8 H Magnesium (1.6 - 2.3 mg/dL) 2.6 H Total Bilirubin (0.2 - 1.3 mg/dL) 0.4 AST (14 - 36 U/L) 22 ALT (9 - 52 U/L) 38 Albumin (3.5 - 5.0 g/dL) 3.1 L Hematology CBC w Diff MAN DIFF ORDERED WBC (4.8 - 10.8 /CUMM) 15.0 H RBC (4.20 - 5.40 /CUMM) 3.05 L Hgb (12.0 - 16.0 G/DL) 9.4 L Hct (37 - 47 %) 28.1 L MCV (81.0 - 99.0 FL) 92.1 MCH (27.0 - 31.0 PG) 30.9 RDW (11.5 - 14.5 %) 15.8 H Plt Count (130 - 400 /CUMM) 464 H MPV (7.4 - 10.4 FL) 7.4 Gran % (42.2 - 75.2 %) 90.5 H Lymphocytes % (20.5 - 51.1 %) 5.4 L Monocytes % (1.7 - 9.3 %) 4.1 Eosinophils % (0 - 5 %) 0 Basophils % (0.0 - 2.0 %) 0 L Absolute Granulocytes (1.4 - 6.5 /CUMM) 13.6 H Absolute Lymphocytes (1.2 - 3.4 /CUMM) 0.8 L Absolute Monocytes (0.10 - 0.60 /CUMM) 0.6 Absolute Eosinophils (0.0 - 0.7 /CUMM) 0 Absolute Basophils (0.0 - 0.2 /CUMM) 0 Platelet Estimate (ADEQUATE) INCREASED Hypochromic-Microcytic 2+ Anisocytosis 1+ PUBS MCHC (33.0 - 37.0 G/DL) 33.5 CXR Findings: 1. Findings are consistent with improving pulmonary edema and decrease in size of left-sided pleural effusion and probable resolution of right-sided pleural effusion. 2. Bibasilar opacities persist, unchanged. Findings are nonspecific and may be related to atelectasis. Clinical correlation requested to exclude pneumonia. 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 Problem List: 1. Acute diastolic CHF (congestive heart failure) 2. Bicuspid aortic valve 3. Severe aortic stenosis 4. Mild mitral stenosis 5. Anemia 6. Rheumatic fever with cardiac involvement 7. Acute hypoxemic respiratory failure Pain Ratin Tomorrow's Labs & Rationales: CBC and ICU bundle (ICU patient) Plan Respiratory: #Acute hypoxemic respiratory failure: On mechanical ventilation day #6 with the following vent settings: AC mode, tidal volume 500, FiO2 40%, RR 18 and PEEP 5. CXR with improving pulmonary edema and resolving bilateral pleural effusions. * Initiate weaning trials with the goal to extubate if parameters are acceptable. * Continue to check CXR daily. * Continue to taper off steroids rapidly. Change to prednisone 40 mg daily. * Continue Protonix 40 mg IV daily for GI PPx. Infectious Diseases: #Probable multilobar pneumonia, resolved: Remains afebrile and with persistent mild leukocytosis, most likely secondary to steroids which are currently being tapered. Infectious work-up negative so far. All cultures have been negative. KESHIA with no evidence of infective endocarditis. S/p 7 days of ceftriaxone and doxycycline which should be sufficient to treat CAP. * ID following. Appreciate their recs. * Continue to monitor off antibiotics. * Await bronchoscopy cytology and cultures. Cardiovascular: #CHF 2/2 severe aortic stenosis: Pelzer to be the most likely etiology for the acute hypoxemic respiratory failure, given significant improvement after starting IV Lasix and KESHIA revealing a bicuspid aortic valve with severe valvular stenosis. Remains on IV Lasix drip with negative fluid balance and improving pulmonary edema. * Cardiology following. Appreciate their recs. * Continue to monitor strict I/Os and daily weights. * Continue IV Lasix drip with close monitoring of BUN and creatinine. * Will most likely need cardiac catheterization and probably aortic valve replacement per cardiology. Hematology: #Anemia: H/H stable, 9.4/28.1 today. * Continue to monitor H/H. #CVA 2/2 cardiac emboli: Transitioned from IV Heparin to Lovenox SQ. * Continue Lovenox 90 mg SQ BID. Metabolic: #DAO: BUN/Cr had been gradually uptrending since starting IV Lasix drip, but has remained stable since yesterday. BUN/Cr 34/1.0 this AM. * Continue to monitor kidney function closely while patient is on Lasix drip. * Continue to monitor electrolytes aned replete to K > 4, Mg > 2 and Phos > 3. Alimentary: Tube feeds. Neurological: Awake and alert. * Monitor off sedation. DVT/Prophylaxis: mechanical, pharmacological Code Status: Full Code
[2016-12-01 08:00] VITALS: BP 118/74
--- NOTE | 2016-12-01 08:19 | RADIOLOGY REPORT ---
EXAMINATION: XR PORTABLE CHEST CLINICAL INFORMATION: Patient is intubated and on mechanical ventilation. Evaluate for interval changes. COMPARISON: Multiple prior chest x-rays, most recent of which is dated 11/30/2016. TECHNIQUE: Portable AP semierect view of the chest was obtained. FINDINGS: Endotracheal tube tip remains 3.5 cm above the damari. Enteric tube courses into the abdomen. Tip projected over the gastric body. Cardiac silhouette is normal in size. Ectasia of the aortic arch is again seen, accentuated by the patient rotation. Central vascular congestion and mild pulmonary edema are improved compared to the prior exam. Bibasilar opacities are noted, unchanged. Small left-sided pleural effusion is seen. There may not be a significant right-sided pleural effusion. No pneumothorax is present. Bony structures are grossly unremarkable. IMPRESSION: 1. Findings are consistent with improving pulmonary edema and decrease in size of left-sided pleural effusion and probable resolution of right-sided pleural effusion. 2. Bibasilar opacities persist, unchanged. Findings are nonspecific and may be related to atelectasis. Clinical correlation requested to exclude pneumonia.
--- NOTE | 2016-12-01 09:21 | PN- CRCU ---
Subjective HPI/Critical Care Issues: The patient is awake and alert. She remains on mechanical ventilation. Her oxygenation has improved and she is now on 40%. She had a temperature of 99.9 yesterday. She is now being followed off antibiotics as per ID. The patient remains on a Lasix drip with good urine output. She remains hemodynamically stable. Objective Current Medications: Current Medications Sig/Lico Start time Last Medication Dose Route Stop Time Status Admin Albuterol Sulfate 3 ML EVERY 4 HRS/AWAKE 11/24 1200 AC 12/01 INH 0748 Atovaquone 750 MG BID 11/27 2200 DC 11/30 PO 0828 Ceftriaxone Sodium 2,000 MG DAILY 11/26 1000 DC 11/30 IV 0827 Doxycycline Hyclate 100 MG Q12 11/26 1008 DC 11/30 Sodium Chloride 100 ML IV 0827 Enoxaparin Sodium 90 MG BID 11/29 2200 AC 11/30 SC 2159 Fentanyl Citrate 1,000 MCG Q8H 11/30 1000 AC 12/01 Dextrose/Water 250 ML IV 0200 Fentanyl Citrate 1,000 MCG Q24H 11/26 1645 DC 11/30 Dextrose/Water 250 ML IV 0647 Furosemide 100 MG Q12H 11/30 0745 AC 11/30 Sodium Chloride 100 ML IV 2000 Insulin Aspart 2 UNITS ONCE ONE 12/01 0030 CAN SC 12/01 0031 Insulin Human Regular 2 UNITS ONCE ONE 12/01 0030 DC 12/01 SC 12/01 0031 0031 Insulin Human Regular 0 Q6 11/29 1800 AC 11/30 SC 0645 Ipratropium [place] 2.5 ML EVERY 4 HRS/AWAKE 11/24 1200 AC 12/01 INH 0749 Lorazepam 0.5 MG BID PRN 11/26 1030 AC 11/29 IV 0049 Methylprednisolone 40 MG BID 11/30 2200 AC 11/30 IV 2159 Methylprednisolone 40 MG Q8 11/26 1400 DC 11/30 IV 0646 Pantoprazole Sodium 40 MG DAILY 11/26 1032 AC 11/30 IV 0828 Polyethylene Glycol 17 GM DAILY 11/28 1000 AC 11/30 PO 0827 Senna/Docusate Sodium 1 TAB BID 11/28 1000 AC 11/30 PO 2158 Vital Signs & I&O Last 24 Hrs of Vitals and I&O: Vital Signs Date Time Temp Pulse Resp B/P Pulse O2 O2 Flow FiO2 Ox Delivery Rate 12/01 0800 97.0 99 28 118/74 95 Ventilator 40% 12/01 0751 40 12/01 0547 40 12/01 0400 98 Ventilator 40% 12/01 0339 40 12/01 0112 40 12/01 0000 98.7 115 18 124/80 92 Ventilator 40% 12/01 0000 92 Ventilator 40% 11/30 2215 40 11/30 2000 94 Ventilator 40% 11/30 1910 40 11/30 1605 45 11/30 1600 97.4 97 20 134/80 95 Nasal 45% Cannula 11/30 1600 95 Ventilator 45% 11/30 1552 Ventilator 100% 11/30 1435 45 11/30 1205 45 11/30 1200 95 Ventilator 45% Intake & Output 12/01 1600 12/01 0800 12/01 0000 Intake Total 62 397 Output Total 1765 1350 Balance -1703 -953 Intake, IV 62 357 Intake, Tube 40 Irrigant Output, Urine 1765 1350 Physical Exam General Appearance: intubated, comfortable, following commands Ears, Nose, Throat: moist mucus membranes Respiratory: crackles scattered througout bilateral lung verduzco, diminished bibasilar breath sounds Cardiovascular: regular rate/rhythm, normal S1 and S2, grade 3/6 systolic murmur Gastrointestinal: soft, non-tender, positive bowel sounds Extremities: no edema, warm and dry Results Last 24 Hrs of Lab Results: Laboratory Tests 12/01/16 0445: Anion Gap 11, Estimated GFR 58 L, Glucose 145 H, Calcium 9.1, Phosphorus 4.8 H, Magnesium 2.6 H, Total Bilirubin 0.4, AST 22, ALT 38, Albumin 3.1 L, CBC w Diff MAN DIFF ORDERED, RBC 3.05 L, MCV 92.1, MCH 30.9, RDW 15.8 H, MPV 7.4, Gran % 90.5 H, Lymphocytes % 5.4 L, Monocytes % 4.1, Eosinophils % 0, Basophils % 0 L, Absolute Granulocytes 13.6 H, Absolute Lymphocytes 0.8 L, Absolute Monocytes 0.6, Absolute Eosinophils 0, Absolute Basophils 0, Platelet Estimate INCREASED, Hypochromic-Microcytic 2+, Anisocytosis 1+, PUBS MCHC 33.5 Diagnostic Data CXR Findings: 1. Findings are consistent with improving pulmonary edema and decrease in size of left-sided pleural effusion and probable resolution of right-sided pleural effusion. 2. Bibasilar opacities persist, unchanged. Findings are nonspecific and may be related to atelectasis. Clinical correlation requested to exclude pneumonia. Impression/Plan Impression/Plan Impression/Plan: 1. Acute hypoxemic respiratory failure and mediastinal lymphadenopathy. Differential diagnosis includes an infectious/inflammatory process versus pulmonary edema. The patient has significantly improved following diuresis. All cultures are negative to date. Chest x-ray continues to improve. 2. Leukocytosis, likely secondary to steroids. 3. Bicuspid aortic valve with aortic stenosis. 4. 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 5. Steroid dependent, seronegative rheumatoid arthritis. 6. Normocytic anemia. Recommendations: * Begin weaning trials. * We will extubate if parameters are acceptable. * Continue diuresis as per cardiology. * Continue to monitor culture data. * Monitor off antibiotics as per ID. * Change to prednisone 40 mg daily, will taper down to off rapidly. * Monitor off sedation. * Continue IV heparin. * Continue DVT/GI prophylaxis/ventilator bundle. * The patient remains critically ill and needs ongoing close follow-up. Code Status: Full Code
--- NOTE | 2016-12-01 09:37 | PN- Cardiology ---
Subjective Subjective: The patient remains intubated. She is awake on the ventilator and is comfortable, however she is not able to give further history. Antibiotics have been discontinued. IV Lasix has been continued, and heart failure is improving. Oxygen requirement is decreasing. Anemia is stable. Low-grade fever of 99.9F was noted yesterday. Urine output is favorable on Lasix drip. Renal insufficiency is improving. Objective Vital Signs and I&Os Vital Signs Date Time Temp Pulse Resp B/P Pulse O2 O2 Flow FiO2 Ox Delivery Rate 12/01 0800 95 Ventilator 40% 12/01 0800 97.0 99 28 118/74 95 Ventilator 40% 12/01 0751 40 12/01 0547 40 12/01 0400 98 Ventilator 40% 12/01 0339 40 12/01 0112 40 12/01 0000 98.7 115 18 124/80 92 Ventilator 40% 12/01 0000 92 Ventilator 40% 11/30 2215 40 11/30 2000 94 Ventilator 40% 11/30 1910 40 11/30 1605 45 11/30 1600 97.4 97 20 134/80 95 Nasal 45% Cannula 11/30 1600 95 Ventilator 45% 11/30 1552 Ventilator 100% 11/30 1435 45 11/30 1205 45 11/30 1200 95 Ventilator 45% Intake & Output 12/01 1600 12/01 0800 12/01 0000 11/30 1600 11/30 0800 11/30 0000 Intake Total 62 397 694 857 985 Output Total 1765 1350 1500 1420 700 Balance -1703 -953 -806 -563 285 Intake, IV 62 357 484 271 385 Intake, Tube 60 491 480 Feeding Intake, Tube 40 150 95 120 Irrigant Number 1 0 0 Bowel Movements Output, Urine 1765 1350 1500 1420 700 Physical Exam: Gen: The patient is in no acute distress HEENT: Normal nose, ears, and oropharynx. Pupils equal bilaterally. Conjunctiva normal. Neck: Supple with no JVD, no masses, and no thyromegaly Lungs: Scattered rhonchi with normal respiratory effort under ventilator Heart: RRR, S1, S2, 2/6 systolic murmur. No peripheral edema, 2+ pulses in the lower extremities bilaterally Abdomen: Soft, nontender, no masses. No hepatomegaly. No splenomegaly Extremities: No clubbing or cyanosis. Normal muscle strength in the upper and lower extremities Skin: Normal skin turgor with no skin ulcers or lesions noted. Neuro: Cranial nerves intact. Sensation intact Psych: Alert and oriented 3 with appropriate affect Current Medications: Current Medications Sig/Lico Start time Last Medication Dose Route Stop Time Status Admin Albuterol Sulfate 3 ML EVERY 4 HRS/AWAKE 11/24 1200 AC 12/01 INH 0748 Atovaquone 750 MG BID 11/27 2200 DC 11/30 PO 0828 Ceftriaxone Sodium 2,000 MG DAILY 11/26 1000 DC 11/30 IV 0827 Doxycycline Hyclate 100 MG Q12 11/26 1008 DC 11/30 Sodium Chloride 100 ML IV 0827 Enoxaparin Sodium 90 MG BID 11/29 2200 AC 11/30 SC 2159 Fentanyl Citrate 1,000 MCG Q8H 11/30 1000 AC 12/01 Dextrose/Water 250 ML IV 0200 Furosemide 100 MG Q12H 11/30 0745 AC 11/30 Sodium Chloride 100 ML IV 2000 Insulin Aspart 2 UNITS ONCE ONE 12/01 0030 CAN SC 12/01 0031 Insulin Human Regular 2 UNITS ONCE ONE 12/01 0030 DC 12/01 MS 12/01 0031 0031 Insulin Human Regular 0 Q6 11/29 1800 AC 11/30 SC 0645 Ipratropium [place] 2.5 ML EVERY 4 HRS/AWAKE 11/24 1200 AC 12/01 INH 0749 Lorazepam 0.5 MG BID PRN 11/26 1030 AC 11/29 IV 0049 Methylprednisolone 40 MG BID 11/30 2200 AC 11/30 IV 2159 Methylprednisolone 40 MG Q8 11/26 1400 DC 11/30 IV 0646 Pantoprazole Sodium 40 MG DAILY 11/26 1032 AC 11/30 IV 0828 Polyethylene Glycol 17 GM DAILY 11/28 1000 AC 11/30 PO 0827 Senna/Docusate Sodium 1 TAB BID 11/28 1000 AC 11/30 PO 2158 Results Last 48 Hrs of Labs/Mics: Laboratory Tests 12/01/16 0445: Anion Gap 11, Estimated GFR 58 L, Glucose 145 H, Calcium 9.1, Phosphorus 4.8 H, Magnesium 2.6 H, Total Bilirubin 0.4, AST 22, ALT 38, Albumin 3.1 L, CBC w Diff MAN DIFF ORDERED, RBC 3.05 L, MCV 92.1, MCH 30.9, RDW 15.8 H, MPV 7.4, Gran % 90.5 H, Lymphocytes % 5.4 L, Monocytes % 4.1, Eosinophils % 0, Basophils % 0 L, Absolute Granulocytes 13.6 H, Absolute Lymphocytes 0.8 L, Absolute Monocytes 0.6, Absolute Eosinophils 0, Absolute Basophils 0, Platelet Estimate INCREASED, Hypochromic-Microcytic 2+, Anisocytosis 1+, PUBS MCHC 33.5 11/30/16 0408: Anion Gap 11, Estimated GFR 52 L, Glucose 182 H, Calcium 8.7, Phosphorus 4.5, Magnesium 2.5 H, Total Bilirubin 0.3, AST 19, ALT 37, Albumin 2.8 L, PT 13.1 H, INR 1.25 H, CBC w Diff MAN DIFF ORDERED, RBC 2.83 L, MCV 94.2, MCH 30.3, RDW 15.6 H, MPV 7.7, Gran % 90.5 H, Lymphocytes % 5.2 L, Monocytes % 4.2, Eosinophils % 0, Basophils % 0.1, Absolute Granulocytes 14.3 H, Absolute Lymphocytes 0.8 L, Absolute Monocytes 0.7 H, Absolute Eosinophils 0, Absolute Basophils 0, Platelet Estimate INCREASED, Hypochromic-Microcytic 2+, PUBS MCHC 32.2 L 11/29/16 1730: APTT Cancelled Recent Imaging Studies: Chest x-ray images are reviewed, and reveal improving pulmonary edema, and improving left-sided pleural effusion, and likely resolution of right-sided pleural effusion. Bibasilar opacities are noted. pourer metal tracing is reviewed, and reveals sinus rhythm without significant arrhythmias. KESHIA 11/27/16: 1. 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 There is evidence of severe valvular stenosis with a PG of 78 mmHg and a MG of 48 mmHg. The planimetered valve area was difficult to assess but appears to be about 0.7 - 0.8 cm2. 2. Thickening of the mitral leaflets is present with rheumatic changes present extending into the subvalvular chordal structures. The PDG is 24 mmHg with a MDG of 14 mmHg and an estimated MVA of 1.8 - 2.0 cm2 with mild to moderate mitral insufficiency and mild to moderate left atrial enlargement. 3. The left atrial appendage is enlarged and mildly hypokinetic with spontaneous contrast present but no evidence of thrombus. 4. The pulmonary venous anatomy is normal bilaterally. 5. A small pericardial effusion is present which is hemodynamically insignificant. 6. THe left ventricular chamber size is normal with mild concentric hypertrophy and a normal ejection fraction.\ 7. Mild enlargement of the right heart chambers is present with minimal to mild tricuspid and pulmonic insufficiency. THe RV systolic pressure could not be accurately assessed. 8. There is no evidence of atrial level shunt. 9. Mild atheromatous plaque is noted in the distal aortic arch and proximal descending thoracic aorta. Assessment/Plan Assessment/Plan Assessment: 1. Bicuspid aortic valve with aortic stenosis 2. Respiratory failure 3. Acute diastolic heart failure, improving on Lasix drip 4. Acute renal insufficiency secondary to diuretic therapy, improving 5. Hypertension, controlled Plan: * Continue Lasix drip. * Monitor input and output with daily weights. * Check basic metabolic profile daily. * Weaning off ventilator if possible as per pulmonary. Continue telemetry? Yes
--- NOTE | 2016-12-01 10:33 | PN- Infect Dx ---
Subjective Subjective: Afebrile on steroids. She offers no complaints. She diuresed well yesterday. Objective Last 24 Hrs of Vital Signs/I&O Vital Signs Date Time Temp Pulse Resp B/P Pulse O2 O2 Flow FiO2 Ox Delivery Rate 12/01 0800 95 Ventilator 40% 12/01 0800 97.0 99 28 118/74 95 Ventilator 40% 12/01 0751 40 12/01 0547 40 12/01 0400 98 Ventilator 40% 12/01 0339 40 12/01 0112 40 12/01 0000 98.7 115 18 124/80 92 Ventilator 40% 12/01 0000 92 Ventilator 40% 11/30 2215 40 11/30 2000 94 Ventilator 40% 11/30 1910 40 11/30 1605 45 11/30 1600 97.4 97 20 134/80 95 Nasal 45% Cannula 11/30 1600 95 Ventilator 45% 11/30 1552 Ventilator 100% 11/30 1435 45 11/30 1205 45 11/30 1200 95 Ventilator 45% Intake & Output 12/01 1600 12/01 0800 12/01 0000 Intake Total 62 397 Output Total 1765 1350 Balance -1703 -953 Intake, IV 62 357 Intake, Tube 40 Irrigant Output, Urine 1765 1350 Physical Exam Other Physical Findings: She appears comfortable on the ventilator in no acute distress Lungs are clear Heart regular rhythm with a 2/6 systolic ejection murmur Abdomen is soft, nontender with positive bowel sounds Extremities no cyanosis, clubbing or edema Scott catheter remains in place Results Last 24 Hours of Lab Results: Laboratory Tests 12/01 0445 Chemistry Sodium (137 - 145 mmol/L) 139 Potassium (3.5 - 5.1 mmol/L) 4.1 Chloride (98 - 107 mmol/L) 94 L Carbon Dioxide (22 - 30 mmol/L) 34 H Anion Gap (5 - 16) 11 BUN (7 - 17 mg/dL) 34 H Creatinine (0.5 - 1.0 mg/dL) 1.0 Estimated GFR (>60 ml/min) 58 L Glucose (65 - 99 mg/dL) 145 H Calcium (8.4 - 10.2 mg/dL) 9.1 Phosphorus (2.5 - 4.5 mg/dL) 4.8 H Magnesium (1.6 - 2.3 mg/dL) 2.6 H Total Bilirubin (0.2 - 1.3 mg/dL) 0.4 AST (14 - 36 U/L) 22 ALT (9 - 52 U/L) 38 Albumin (3.5 - 5.0 g/dL) 3.1 L Hematology CBC w Diff MAN DIFF ORDERED WBC (4.8 - 10.8 /CUMM) 15.0 H RBC (4.20 - 5.40 /CUMM) 3.05 L Hgb (12.0 - 16.0 G/DL) 9.4 L Hct (37 - 47 %) 28.1 L MCV (81.0 - 99.0 FL) 92.1 MCH (27.0 - 31.0 PG) 30.9 RDW (11.5 - 14.5 %) 15.8 H Plt Count (130 - 400 /CUMM) 464 H MPV (7.4 - 10.4 FL) 7.4 Gran % (42.2 - 75.2 %) 90.5 H Lymphocytes % (20.5 - 51.1 %) 5.4 L Monocytes % (1.7 - 9.3 %) 4.1 Eosinophils % (0 - 5 %) 0 Basophils % (0.0 - 2.0 %) 0 L Absolute Granulocytes (1.4 - 6.5 /CUMM) 13.6 H Absolute Lymphocytes (1.2 - 3.4 /CUMM) 0.8 L Absolute Monocytes (0.10 - 0.60 /CUMM) 0.6 Absolute Eosinophils (0.0 - 0.7 /CUMM) 0 Absolute Basophils (0.0 - 0.2 /CUMM) 0 Platelet Estimate (ADEQUATE) INCREASED Hypochromic-Microcytic 2+ Anisocytosis 1+ PUBS MCHC (33.0 - 37.0 G/DL) 33.5 Last 24 Hours of Michael Results: No recent cultures Recent Imaging Studies: Chest x-ray December 01, personally reviewed, reveals decreased markings bilaterally Assessment/Plan Impression: Continues to improve with significant diuresis on the Lasix drip. She remains afebrile (on steroids) now off antibiotics with persistent leukocytosis, likely secondary to the steroids, which are being tapered. Her chest x-ray continues to improve with Lasix supporting the clinical suspicion of pulmonary edema. Suggestion: 1. Continue steroid taper per Pulmonary 2. Continue to follow off antibiotics
--- NOTE | 2016-12-01 10:44 | NUR ---
0800: RECEIVED PT IN BED. ALERT. FENTANYL GTT OFF AT THIS TIME. PT ABLE TO FOLLOW COMMANDS AND NOD HEAD TO ANSWER YES OR NO QUESTIONS. NSR/ST ON MONITOR. AFEBRILE. MANUAL B/P 118/74. DENIES ANY CHEST PAIN. REMAINS ON VENT AT THIS TIME SETTINGS AC-18 500 40% PEEP 5. LUNGS RHONCHI THROUGHOUT. SAT 95%. ON LASIX GTT @ 3MG/HR. ETT #8 TAPED TO THE RIGHT AT 19CM. OGT IN PLACE AT 50CM. CLAMPED DUE TO HIGH RESIDUALS. +BS. LAST BM 2-20. DENIES NAUSEA. SUH IN PLACE DRAINING LARGE AMOUNTS OF CLEAR YELLOW URINE. SKIN INTACT. +1 BLE EDEMA. + PEDAL AND RADIAL PULSES. #22 MARCIA AND #[address] WRIST RESTRAINTS IN PLACE UNTIL EXTUBATED. PLAN FOR POSSIBLE EXTUBATION TODAY. AT BEDSIDE. DR VARELA AT BEDSIDE. WILL MONITOR.
--- NOTE | 2016-12-01 11:54 | NUR ---
TRC IN PROGRESS AT THIS TIME. WEANING TRIAL TO START AFTER TREATMENT
[2016-12-01 16:00] VITALS: BP 130/82
--- NOTE | 2016-12-01 18:45 | NUR ---
AT 1600 PT HAD 3 EPISODES OF LARGE INCONTINENT STOOLS. PT GAGGING AND COUGHING, ASKED IF SHE WAS NAUSEOUS, PT NODDED YES. OGT HOOKED UP TO SUCTION. 100ML OUT IMMEDIATELY. PT HAS BEEN OFF TUBE FEED ALL DAY, ON LASIX GTT, NO IVF. MD SOMMER AND MD DARLING AWARE. WILL MONITOR FOR NOW. NO NEW ORDERS.
[2016-12-02 00:41] VITALS: BP 110/74
--- NOTE | 2016-12-02 00:49 | NUR ---
AVSS. DROWSY BUT AROUSABLE.PUPILS REACTIVE.FOLLOW COMMANDS.LOPES WITH +CMS.+PP.GEN EDEMA. IV LASIX CONT ATC.REMAIN VENTILATED WITH SATS >95%.NO CHANGES TO VENT SETTINGS. ORAL CARE DONE.HOB ELEVATED. OGT CLAMPED.BS MONITORING CONT ATC WITH SLIDING SCALE.SUH PATENT WITH GOOD UO.PLAN OF CARE REVIEWED
[2016-12-02 06:00] LABS: ABSOLUTE BASOPHIL COUNT 0 /CUMM (0.0-0.2); ABSOLUTE EOSINOPHIL COUNT 0.1 /CUMM (0.0-0.7); ABSOLUTE GRANULOCYTE CT 9.6 /CUMM (1.4-6.5); ABSOLUTE LYMPH COUNT 1.2 /CUMM (1.2-3.4); ABSOLUTE MONOCYTE COUNT 0.4 /CUMM (0.10-0.60); BASOPHIL % 0.3 % (0.0-2.0); EOSINOPHIL % 0.8 % (0-5); GRANULOCYTE % 84.5 % (42.2-75.2); HEMATOCRIT 31.1 % (37-47); MEAN CORPUSCULAR HGB 30.4 PG (27.0-31.0); MEAN CORPUSCULAR HGB CONC 32.5 G/DL (33.0-37.0); MEAN CORPUSCULAR VOLUME 93.5 FL (81.0-99.0); MEAN PLATELET VOLUME 7.6 FL (7.4-10.4); RBC DISTRIBUTION WIDTH 15.4 % (11.5-14.5); RED BLOOD CELL CT 3.32 /CUMM (4.20-5.40); WHITE BLOOD CELL COUNT 11.4 /CUMM (4.8-10.8)
--- NOTE | 2016-12-02 06:29 | RADIOLOGY REPORT ---
EXAMINATION: XR PORTABLE CHEST CLINICAL INFORMATION: Intubation. COMPARISON: Chest x-ray 12/01/2016 TECHNIQUE: Portable AP portable view of the chest was obtained. 6:09 PM FINDINGS: Nasogastric tube in stomach. Endotracheal tube catheter in good position approximately 3.5 cm above damari. Previously noted mild vascular congestion has improved.. This is accentuated by low inspiratory effort. No overt pulmonary edema. The basilar density at the right lung base seen on prior chest x-ray has resolved. There is still some increased retrocardiac density remaining of infiltrate or atelectasis. There is a persistent small left pleural effusion blunting the costophrenic angle. IMPRESSION: 1. Endotracheal tube catheter in good position about 3.5 cm above damari. 2. Improved mild pulmonary vascular congestion. 3. Improved aeration at right lung base. 4. Persistent left basilar infiltrate or atelectasis with left pleural effusion.
[2016-12-02 06:42] LABS: PLATELET COUNT 451 /CUMM (130-400)
--- NOTE | 2016-12-02 07:12 | PN- Resident CRCU ---
Subjective HPI/CRCU Issues: Weaning trial was performed yesterday but was not successful. Patient has had several episodes of loose brown and guiac negative stools. Yesterday evening she was noted to be nauseous, coughing and gagging by nursing staff. Patient was seen and examined this morning. She remains intubated and on mechanical ventilation but is awake, alert and comfortable. She follows commands and answers questions by nodding her head. She continues on the IV Lasix drip with a negative fluid balance. She is currently on mechanical ventilation day #7 with the following vent settings: AC mode, tidal volume 500, FiO2 40%, RR 18 and PEEP 5. Objective Vital Signs & I&O Last 8 Hrs of Vitals and I&O: Vital Signs Date Time Temp Pulse Resp B/P Pulse O2 O2 Flow FiO2 Ox Delivery Rate 12/02 0813 40 12/02 0537 40 12/02 0434 95 Ventilator 40% 12/02 0257 40 12/02 0041 98.3 98 18 110/74 95 12/02 0033 40 12/01 2353 95 Ventilator 40% 12/01 2239 40 12/01 2000 97 Ventilator 40% 12/01 1900 40 12/01 1615 40 12/01 1600 98.1 96 18 130/82 95 Ventilator 40% 12/01 1515 Ventilator 100% 12/01 1420 40 12/01 1200 97 Ventilator 40% 12/01 1156 40 Exam General Appearance: alert, awake, comfortable, intubated, obese, follows commands Respiratory: lungs clear Cardiovascular: regular rate/rhythm, normal S1 and S2, grade 3/6 systolic murmur Gastrointestinal: soft, non-tender, positive bowel sounds Extremities: no edema, no clubbing or cyanosis Skin: normal color, warm/dry Current Medications: Current Medications Sig/Lico Start time Last Medication Dose Route Stop Time Status Admin Albuterol Sulfate 3 ML EVERY 4 HRS/AWAKE 11/24 1200 AC 12/02 INH 0810 Enoxaparin Sodium 90 MG BID 11/29 2200 AC 12/01 SC 2234 Fentanyl Citrate 1,000 MCG Q8H 11/30 1000 DC 12/01 Dextrose/Water 250 ML IV 0200 Furosemide 100 MG Q12H 11/30 0745 AC 12/01 Sodium Chloride 100 ML IV 1830 Insulin Human Regular 0 Q6 11/29 1800 AC 11/30 SC 0645 Ipratropium [place] 2.5 ML EVERY 4 HRS/AWAKE 11/24 1200 AC 12/02 INH 0810 Lorazepam 0.5 MG ONCE ONE 12/02 0815 DC 12/02 IV 12/02 0816 0812 Lorazepam 0.5 MG BID PRN 11/26 1030 AC 12/02 IV 0316 Methylprednisolone 40 MG BID 11/30 2199 DC 11/30 IV 2159 Nystatin 1 ELYSIA TID 12/01 2199 AC TOP Nystatin 5 ML 4 TIMES/DAY 12/01 195 AC 12/01 PO 2234 Pantoprazole Sodium 40 MG DAILY 11/26 103 AC 12/01 IV 1007 Polyethylene Glycol 17 GM DAILY 11/28 1000 AC 12/01 PO 1006 Potassium Chloride 20 MEQ ONCE ONE 12/02 0830 DC PO 12/02 0831 Potassium Chloride 20 MEQ ONCE ONE 12/02 0730 DC PO 12/02 0731 Potassium Chloride 20 MEQ ONCE ONE 12/02 07 DC PO 12/02 0731 Prednisone 40 MG DAILY 12/01 1000 AC 12/01 PO 1053 Senna/Docusate Sodium 1 TAB BID 11/28 1000 AC 12/01 PO 1007 Results Results: Laboratory Tests 12/02 0455 Chemistry Sodium (137 - 145 mmol/L) 139 Potassium (3.5 - 5.1 mmol/L) 3.4 L Chloride (98 - 107 mmol/L) 94 L Carbon Dioxide (22 - 30 mmol/L) 35 H Anion Gap (5 - 16) 11 BUN (7 - 17 mg/dL) 31 H Creatinine (0.5 - 1.0 mg/dL) 1.0 Estimated GFR (>60 ml/min) 58 L Glucose (65 - 99 mg/dL) 106 H Calcium (8.4 - 10.2 mg/dL) 9.0 Phosphorus (2.5 - 4.5 mg/dL) 4.0 Magnesium (1.6 - 2.3 mg/dL) 2.5 H Total Bilirubin (0.2 - 1.3 mg/dL) 0.7 AST (14 - 36 U/L) 34 ALT (9 - 52 U/L) 42 Albumin (3.5 - 5.0 g/dL) 3.1 L Hematology CBC w Diff NO MAN DIFF REQ WBC (4.8 - 10.8 /CUMM) 11.4 H RBC (4.20 - 5.40 /CUMM) 3.32 L Hgb (12.0 - 16.0 G/DL) 10.1 L Hct (37 - 47 %) 31.1 L MCV (81.0 - 99.0 FL) 93.5 MCH (27.0 - 31.0 PG) 30.4 RDW (11.5 - 14.5 %) 15.4 H Plt Count (130 - 400 /CUMM) 451 H MPV (7.4 - 10.4 FL) 7.6 Gran % (42.2 - 75.2 %) 84.5 H Lymphocytes % (20.5 - 51.1 %) 10.8 L Monocytes % (1.7 - 9.3 %) 3.6 Eosinophils % (0 - 5 %) 0.8 Basophils % (0.0 - 2.0 %) 0.3 Absolute Granulocytes (1.4 - 6.5 /CUMM) 9.6 H Absolute Lymphocytes (1.2 - 3.4 /CUMM) 1.2 Absolute Monocytes (0.10 - 0.60 /CUMM) 0.4 Absolute Eosinophils (0.0 - 0.7 /CUMM) 0.1 Absolute Basophils (0.0 - 0.2 /CUMM) 0 PUBS MCHC (33.0 - 37.0 G/DL) 32.5 L CXR Findings: 1. Endotracheal tube catheter in good position about 3.5 cm above damari. 2. Improved mild pulmonary vascular congestion. 3. Improved aeration at right lung base. 4. Persistent left basilar infiltrate or atelectasis with left pleural effusion. 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 Problem List: 1. Acute diastolic CHF (congestive heart failure) 2. Bicuspid aortic valve 3. Severe aortic stenosis 4. Anemia 5. Hypokalemia 6. Rheumatoid aortitis 7. Rheumatic fever with cardiac involvement 8. On mechanically assisted ventilation 9. Diarrhea Pain Ratin Tomorrow's Labs & Rationales: CBC and ICU bundle (ICU patient) Plan Respiratory: #Acute hypoxemic respiratory failure: On mechanical ventilation day #7 with the following vent settings: AC mode, tidal volume 500, FiO2 40%, RR 18 and PEEP 5. CXR with improving pulmonary vascular congestion and resolving bilateral pleural effusions. * Continue weaning trials. * Continue to check CXR daily. * Continue prednisone 40 mg PO daily. * Continue Protonix 40 mg IV daily for GI PPx. Infectious Diseases: #Probable multilobar pneumonia: Remains afebrile. Mild leukocytosis likely secondary to steroids on the steroid taper. Infectious work-up negative so far. All cultures have been negative. KESHIA with no evidence of infective endocarditis. S/p 7 days of ceftriaxone and doxycycline which should be sufficient to treat CAP. * ID following. Appreciate their recs. * Continue to monitor off antibiotics. * Await bronchoscopy cytology and cultures. #Diarrhea: Multiple episodes of loose brown stools since yesterday evening. * C. diff ordered. Cardiovascular: #CHF 2/2 severe aortic stenosis: [place] to be the most likely etiology for the acute hypoxemic respiratory failure, given significant improvement after starting IV Lasix and KESHIA revealing a bicuspid aortic valve with severe valvular stenosis. Remains on IV Lasix drip with negative fluid balance and improving pulmonary edema. * Cardiology following. Appreciate their recs. * Continue to monitor strict I/Os and daily weights. * Increase IV Lasix drip to 5 mg/hr. * Will most likely need cardiac catheterization and probably aortic valve replacement per cardiology. Hematology: #Anemia: H/H stable, 10.31.1 today. * Continue to monitor H/H. #CVA 2/2 cardiac emboli: Transitioned from IV Heparin to Lovenox SQ. * Continue Lovenox 90 mg SQ BID. Metabolic: #DAO: BUN/Cr initially uptrended after starting IV Lasix drip, but currently stable. * Continue to monitor kidney function closely while patient is on Lasix drip. * Continue to monitor electrolytes aned replete to K > 4, Mg > 2 and Phos > 3. Alimentary: Tube feeds. Neurological: Awake and alert. * Continue to monitor off sedation. DVT/Prophylaxis: mechanical, pharmacological Code Status: Full Code
[2016-12-02 08:00] VITALS: BP 142/96
--- NOTE | 2016-12-02 09:49 | PN- CRCU ---
Subjective HPI/Critical Care Issues: The patient is awake and alert. She remains intubated. She continues to struggle with weaning trials. She is afebrile and there were no overnight events reported. Objective Current Medications: Current Medications Sig/Lico Start time Last Medication Dose Route Stop Time Status Admin Albuterol Sulfate 3 ML EVERY 4 HRS/AWAKE 11/24 1200 AC 12/03 INH 0931 Enoxaparin Sodium 90 MG BID 11/29 2200 AC 12/03 SC 0949 Furosemide 100 MG Q12H 11/30 0745 AC 12/02 Sodium Chloride 100 ML IV 2016 Insulin Human Regular 0 Q6 11/29 1800 AC 12/03 SC 0610 Ipratropium [place] 2.5 ML EVERY 4 HRS/AWAKE 11/24 1200 AC 12/03 INH 0932 Lorazepam 1 MG ONCE ONE 12/02 1845 DC 12/02 IV 12/02 1846 1830 Lorazepam 1 MG ONCE ONE 12/02 1130 DC 12/02 IV 12/02 1131 1135 Lorazepam 0.5 MG BID PRN 11/26 1030 AC 12/03 IV 0051 Metronidazole 500 MG Q8 12/02 1315 AC 12/03 PO 0609 Morphine Sulfate 1 MG ONCE ONE 12/03 0515 DC 12/03 IV 12/03 0516 0517 Nystatin 1 ELYSIA TID 12/01 2200 AC 12/03 TOP 0949 Nystatin 5 ML 4 TIMES/DAY 12/01 1957 AC 12/03 PO 0950 Oxycodone/ 1 TAB .STK-MED ONE 12/03 0002 DC Acetaminophen PO 12/03 0003 Oxycodone/ 1 TAB ONCE ONE 12/02 2345 DC 12/03 Acetaminophen PO 12/02 2346 0009 Pantoprazole Sodium 40 MG DAILY 11/26 1032 AC 12/03 IV 0949 Polyethylene Glycol 17 GM DAILY 11/28 1000 AC 12/01 PO 1006 Potassium Chloride 60 MEQ ONCE ONE 12/03 0730 DC 12/03 PO 12/03 0731 0949 Prednisone 40 MG DAILY 12/01 1000 AC 12/03 PO 0949 Senna/Docusate Sodium 1 TAB BID 11/28 1000 AC 12/01 PO 1007 Vital Signs & I&O Last 24 Hrs of Vitals and I&O: Vital Signs Date Time Temp Pulse Resp B/P Pulse O2 O2 Flow FiO2 Ox Delivery Rate 12/03 0935 40 12/03 0608 40 12/03 0400 98 Ventilator 40% 12/03 0339 40 12/03 0045 40 12/03 0000 98.6 102 18 118/82 96 Ventilator 40% 12/03 0000 96 Ventilator 40% 12/02 2254 40 12/02 2006 40 12/02 2000 97 Ventilator 40% 12/02 1642 40 12/02 1600 97.6 98 18 114/78 97 Ventilator 40% 12/02 1600 97 Ventilator 40% 12/02 1406 40 12/02 1200 96 Ventilator 40% 12/02 1123 40 Intake & Output 12/03 1600 12/03 0800 12/03 0000 Intake Total 354 345 Output Total 800 1300 Balance -446 -955 Intake, IV 40 40 Intake, Oral 0 Intake, Other 60 Intake, Tube 194 150 Feeding Intake, Tube 120 95 Irrigant Number 2 3 Bowel Movements Output, Urine 800 1300 Physical Exam General Appearance: intubated, comfortable, following commands Ears, Nose, Throat: moist mucus membranes Respiratory: crackles scattered througout bilateral lung verduzco, diminished bibasilar breath sounds Cardiovascular: regular rate/rhythm, normal S1 and S2, grade 3/6 systolic murmur Gastrointestinal: soft, non-tender, positive bowel sounds Extremities: no edema, warm and dry Results Last 24 Hrs of Lab Results: Laboratory Tests 12/03/16 0400: Anion Gap 13, Estimated GFR 52 L, Glucose 122 H, Calcium 9.2, Phosphorus 4.3, Magnesium 2.7 H, Total Bilirubin 0.7, AST 31, ALT 45, Albumin 3.5, CBC w Diff NO MAN DIFF REQ, RBC 3.59 L, MCV 92.4, MCH 30.2, RDW 15.7 H, MPV 7.6, Gran % 83.1 H, Lymphocytes % 11.4 L, Monocytes % 4.6, Eosinophils % 0.8, Basophils % 0.1, Absolute Granulocytes 9.4 H, Absolute Lymphocytes 1.3, Absolute Monocytes 0.5, Absolute Eosinophils 0.1, Absolute Basophils 0, PUBS MCHC 32.7 L Diagnostic Data CXR Findings: Improving pulmonary edema. Impression/Plan Impression/Plan Impression/Plan: 1. Acute hypoxemic respiratory failure and mediastinal lymphadenopathy. Differential diagnosis includes an infectious/inflammatory process versus pulmonary edema. The patient has significantly improved following diuresis. All cultures are negative to date. Chest x-ray continues to improve. 2. Leukocytosis, likely secondary to steroids. 3. Bicuspid aortic valve with aortic stenosis. 4. 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 5. Steroid dependent, seronegative rheumatoid arthritis. 6. Normocytic anemia. Recommendations: * Increase Lasix drip to 5 mg an hour, maintain negative fluid balance. * Continue with weaning trials as tolerated. * We will extubate if parameters are acceptable. * Continue to monitor culture data. * Monitor off antibiotics as per ID. * Continue prednisone at 40 mg daily. * Monitor off sedation. * Continue IV heparin. * Continue DVT/GI prophylaxis/ventilator bundle. * Continue all supportive care. Discussed with housestaff, cardiology and ID. * The patient remains critically ill and needs ongoing close follow-up. Code Status: Full Code
--- NOTE | 2016-12-02 10:54 | PN- Infect Dx ---
Subjective Subjective: Afebrile on steroids. She notes abdominal discomfort and has had several loose brown, guaiac negative, stools. Objective Last 24 Hrs of Vital Signs/I&O Vital Signs Date Time Temp Pulse Resp B/P Pulse O2 O2 Flow FiO2 Ox Delivery Rate 12/02 0813 40 12/02 0800 99.3 101 22 142/96 95 Ventilator 40% 12/02 0800 95 Ventilator 40% 12/02 0537 40 12/02 0434 95 Ventilator 40% 12/02 0257 40 12/02 0041 98.3 98 18 110/74 95 12/02 0033 40 12/01 2353 95 Ventilator 40% 12/01 2239 40 12/01 2000 97 Ventilator 40% 12/01 1900 40 12/01 1615 40 12/01 1600 98.1 96 18 130/82 95 Ventilator 40% 12/01 1515 Ventilator 100% 12/01 1420 40 12/01 1200 97 Ventilator 40% 12/01 1156 40 Intake & Output 12/02 1600 12/02 0800 12/02 0000 Intake Total 24 34 Output Total 670 1200 Balance -646 -1166 Intake, IV 24 34 Intake, Oral 0 Number 1 1 Bowel Movements Output, Urine 670 1200 Physical Exam Other Physical Findings: She is awake and alert on the ventilator in no acute distress Lungs are clear Heart regular rhythm with a 2/6 systolic ejection murmur Abdomen soft, tender on palpation diffusely, with no guarding or rebound, positive bowel sounds Extremities no cyanosis, clubbing or edema Scott catheter remains in place Results Last 24 Hours of Lab Results: Laboratory Tests 12/02 0455 Chemistry Sodium (137 - 145 mmol/L) 139 Potassium (3.5 - 5.1 mmol/L) 3.4 L Chloride (98 - 107 mmol/L) 94 L Carbon Dioxide (22 - 30 mmol/L) 35 H Anion Gap (5 - 16) 11 BUN (7 - 17 mg/dL) 31 H Creatinine (0.5 - 1.0 mg/dL) 1.0 Estimated GFR (>60 ml/min) 58 L Glucose (65 - 99 mg/dL) 106 H Calcium (8.4 - 10.2 mg/dL) 9.0 Phosphorus (2.5 - 4.5 mg/dL) 4.0 Magnesium (1.6 - 2.3 mg/dL) 2.5 H Total Bilirubin (0.2 - 1.3 mg/dL) 0.7 AST (14 - 36 U/L) 34 ALT (9 - 52 U/L) 42 Albumin (3.5 - 5.0 g/dL) 3.1 L Hematology CBC w Diff NO MAN DIFF REQ WBC (4.8 - 10.8 /CUMM) 11.4 H RBC (4.20 - 5.40 /CUMM) 3.32 L Hgb (12.0 - 16.0 G/DL) 10.1 L Hct (37 - 47 %) 31.1 L MCV (81.0 - 99.0 FL) 93.5 MCH (27.0 - 31.0 PG) 30.4 RDW (11.5 - 14.5 %) 15.4 H Plt Count (130 - 400 /CUMM) 451 H MPV (7.4 - 10.4 FL) 7.6 Gran % (42.2 - 75.2 %) 84.5 H Lymphocytes % (20.5 - 51.1 %) 10.8 L Monocytes % (1.7 - 9.3 %) 3.6 Eosinophils % (0 - 5 %) 0.8 Basophils % (0.0 - 2.0 %) 0.3 Absolute Granulocytes (1.4 - 6.5 /CUMM) 9.6 H Absolute Lymphocytes (1.2 - 3.4 /CUMM) 1.2 Absolute Monocytes (0.10 - 0.60 /CUMM) 0.4 Absolute Eosinophils (0.0 - 0.7 /CUMM) 0.1 Absolute Basophils (0.0 - 0.2 /CUMM) 0 PUBS MCHC (33.0 - 37.0 G/DL) 32.5 L Last 24 Hours of Michael Results: Stool C. difficile December 01 pending Recent Imaging Studies: Chest x-ray December 02, personally reviewed, reveals decreased pulmonary vascular congestion Assessment/Plan Impression: Continues to improve with further diuresis on a Lasix drip for pulmonary edema. She remains afebrile (on steroids) with white blood cell count decreasing off antibiotics. Her abdominal discomfort and diarrhea raise concern for C. difficile, which is pending. Suggestion: 1. Follow-up stool for C. difficile 2. Further steroid taper per Pulmonary 3. Continue to follow off antibiotics
--- NOTE | 2016-12-02 11:00 | NUR ---
Patient is awake and alert- periods of increased restlessness and c/o anxiety- Receiving Ativan IVP PRN- able to shake head yes and no appropriately to questions and can follow commands. Soft bilateral wrist restraints in place. NSR-ST on tele monitor. HR= 90-110's, sbp:110-140's and pt denies chest pain. Remains intubated with a #8 which was retaped to the left at 20cm by respiratory. Lungs are rhonchorous and scant amounts of thick felipe secretions are noted when suctioning. Patient will occasionally bite on the ETT and needs constant reminder and reassurance. Vent settings currently AC: 18/500/40/5- She was on a c-pap trial with a PSV-10- and was able to tolerate for approx 80 minutes before she became anious, restless and was jarvis to convey she felt short of breath. Abdomen is soft with + bowel sounds. OGT in place and is clamped at this time- ? to restart tube feeds since there is no plan for extubation today. INC of loose stools- Scott in place draing clear yellow urine- lasix gtt continues to infuse and was increased to 5mg/hr. No areas of pressure injury are currently noted- Trace generalized edema- Nystatin powder applied to groin. Pt currently denies pain. Patients at the bedside and plan of care was discussed- She was able to communicate to him by pointing to pictures that were provided- Vitals currently stable- Will continue to closely monitor patient.
--- NOTE | 2016-12-02 12:57 | PN- Cardiology ---
Subjective Subjective: I restart 5000 mL over the last 48 hours but remains about 5000 mL positive overall. Her FiO2 has improved. She is awake and alert. As far as I can tell she denies any significant symptoms. She remains anxious. Objective Vital Signs and I&Os Vital Signs Date Time Temp Pulse Resp B/P Pulse O2 O2 Flow FiO2 Ox Delivery Rate 12/02 1123 40 12/02 0813 40 12/02 0800 99.3 101 22 142/96 95 Ventilator 40% 12/02 0800 95 Ventilator 40% 12/02 0537 40 12/02 0434 95 Ventilator 40% 12/02 0257 40 12/02 0041 98.3 98 18 110/74 95 12/02 0033 40 12/01 2353 95 Ventilator 40% 12/01 2239 40 12/01 2000 97 Ventilator 40% 12/01 1900 40 12/01 1615 40 12/01 1600 98.1 96 18 130/82 95 Ventilator 40% 12/01 1515 Ventilator 100% 12/01 1420 40 Intake & Output 12/02 1600 12/02 0800 12/02 0000 12/01 1600 12/01 0800 12/01 0000 Intake Total 24 34 325 62 397 Output Total 670 1200 1225 1765 1350 Balance -646 -1166 -900 -1703 -953 Intake, IV 24 34 25 62 357 Intake, Oral 0 Intake, Other 300 Intake, Tube 40 Irrigant Number 1 1 0 Bowel Movements Output, Urine 670 1200 1225 1765 1350 Current Medications: Current Medications Sig/Lico Start time Last Medication Dose Route Stop Time Status Admin Albuterol Sulfate 3 ML EVERY 4 HRS/AWAKE 11/24 1200 AC 12/02 INH 1119 Enoxaparin Sodium 90 MG BID 11/29 2200 AC 12/02 DC 0851 Furosemide 100 MG Q12H 11/30 0745 AC 12/01 Sodium Chloride 100 ML IV 1830 Insulin Human Regular 0 Q6 11/29 1800 AC 11/30 DC 0645 Ipratropium Z[place] 2.5 ML EVERY 4 HRS/AWAKE 11/24 1200 AC 12/02 INH 1119 Lorazepam 1 MG ONCE ONE 12/02 1130 DC 12/02 IV 12/02 1131 1135 Lorazepam 0.5 MG ONCE ONE 12/02 0815 DC 12/02 IV 12/02 0816 0812 Lorazepam 0.5 MG BID PRN 11/26 1030 AC 12/02 IV 0316 Nystatin 1 ELYSIA TID 12/01 2200 AC 12/02 TOP 0851 Nystatin 5 ML 4 TIMES/DAY 12/01 1957 AC 12/02 PO 0850 Pantoprazole Sodium 40 MG DAILY 11/26 1032 AC 12/02 IV 0850 Polyethylene Glycol 17 GM DAILY 11/28 1000 AC 12/01 PO 1006 Potassium Chloride 20 MEQ ONCE ONE 12/02 0830 DC 12/02 PO 12/02 0831 1146 Potassium Chloride 20 MEQ ONCE ONE 12/02 0730 DC 12/02 PO 12/02 0731 0852 Potassium Chloride 20 MEQ ONCE ONE 12/02 0730 DC 12/02 PO 12/02 0731 0852 Prednisone 40 MG DAILY 12/01 1000 AC 12/02 PO 0849 Senna/Docusate Sodium 1 TAB BID 11/28 1000 AC 12/01 PO 1007 Results Last 48 Hrs of Labs/Mics: Laboratory Tests 12/02/16 0455: Anion Gap 11, Estimated GFR 58 L, Glucose 106 H, Calcium 9.0, Phosphorus 4.0, Magnesium 2.5 H, Total Bilirubin 0.7, AST 34, ALT 42, Albumin 3.1 L, CBC w Diff NO MAN DIFF REQ, RBC 3.32 L, MCV 93.5, MCH 30.4, RDW 15.4 H, MPV 7.6, Gran % 84.5 H, Lymphocytes % 10.8 L, Monocytes % 3.6, Eosinophils % 0.8, Basophils % 0.3, Absolute Granulocytes 9.6 H, Absolute Lymphocytes 1.2, Absolute Monocytes 0.4, Absolute Eosinophils 0.1, Absolute Basophils 0, PUBS MCHC 32.5 L 12/01/16 6825: Anion Gap 11, Estimated GFR 58 L, Glucose 145 H, Calcium 9.1, Phosphorus 4.8 H, Magnesium 2.6 H, Total Bilirubin 0.4, AST 22, ALT 38, Albumin 3.1 L, CBC w Diff MAN DIFF ORDERED, RBC 3.05 L, MCV 92.1, MCH 30.9, RDW 15.8 H, MPV 7.4, Gran % 90.5 H, Lymphocytes % 5.4 L, Monocytes % 4.1, Eosinophils % 0, Basophils % 0 L, Absolute Granulocytes 13.6 H, Absolute Lymphocytes 0.8 L, Absolute Monocytes 0.6, Absolute Eosinophils 0, Absolute Basophils 0, Platelet Estimate INCREASED, Hypochromic-Microcytic 2+, Anisocytosis 1+, PUBS MCHC 33.5 Assessment/Plan Assessment/Plan Assessment: 1. Acute hypoxic respiratory failure with bilateral infiltrates on chest x-ray and CT chest -At the present time, it is difficult to discern the underlying etiology of the patient's current respiratory issues. From a cardiac standpoint, the patient does have underlying bicuspid aortic valve with severe aortic stenosis and mild mitral stenosis with mild mitral insufficiency. The repeat echocardiogram done last night does not show any significant change from the prior echocardiogram of 2015, however, the images were technically limited quality. A KESHIA was performed today at the bedside in the ICU. This showed evidence of a bicuspid aortic valve with severe aortic stenosis. The valve area is approximately 0.9 cm. In addition she continues to have mild mitral stenosis, likely rheumatic in nature with mild mitral insufficiency. Her left ventricular function remains normal. Despite this fact, and the fact that her proBNP is elevated, the patient has multiple other issues including the chest x-ray findings, CAT scan findings, persistent intermittent fever despite antibiotics, markedly elevated sedimentation rate, CRP, and the history of viral prodrome. The possibility of other issues such as pneumonia in a an immune compromised host, viral pneumonia, underlying inflammatory issues, etc also in the differential. 2. History of hypertension 3. History of bicuspid aortic valve with aortic stenosis 4. 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 History of prior stroke 6. History of serial positive rheumatoid arthritis 7. Normocytic anemia 8. Markedly elevated sedimentation rate with elevated CRP Recommendations: -For now, I would continue all current supportive care -Continue diuresis with IV Lasix when possible as tolerated by the patient's blood pressure. -Remaining trials as per pulmonary service -Continue as per the pulmonary/critical care service. -Patient is stable and hopefully extubated, further plans can be made with respect to further evaluation for her valvular heart disease. Continue telemetry? Yes
[2016-12-02 16:00] VITALS: BP 114/78
[2016-12-03] VITALS: BP 118/82
--- NOTE | 2016-12-03 01:00 | NUR ---
PATIENT AWAKE AND FOLLOWING COMMANDS. MONITOR SINUS TACHYCARDIA AT RATE OF 102. BQ=703/82.ETT TO VENTILATOR AT 40%.SAT=96%.SUCTIONED OF THIN WHITE SECRETIONS.TUBE FEED VIA OGT AT 30 ML/HR. RESIDUAL=40 ML.PT C/O PAIN IN LEGS. PERCOCET DOSE GIVEN.PT COUGHING WITH INTUBATION.TEARS IN EYES. ATIVAN 0.5 MG GIVEN IV
[2016-12-03 05:09] LABS: ABSOLUTE BASOPHIL COUNT 0 /CUMM (0.0-0.2); ABSOLUTE EOSINOPHIL COUNT 0.1 /CUMM (0.0-0.7); ABSOLUTE GRANULOCYTE CT 9.4 /CUMM (1.4-6.5); ABSOLUTE LYMPH COUNT 1.3 /CUMM (1.2-3.4); ABSOLUTE MONOCYTE COUNT 0.5 /CUMM (0.10-0.60); BASOPHIL % 0.1 % (0.0-2.0); EOSINOPHIL % 0.8 % (0-5); HEMATOCRIT 33.2 % (37-47); MEAN CORPUSCULAR HGB 30.2 PG (27.0-31.0); MEAN CORPUSCULAR HGB CONC 32.7 G/DL (33.0-37.0); MEAN CORPUSCULAR VOLUME 92.4 FL (81.0-99.0); MEAN PLATELET VOLUME 7.6 FL (7.4-10.4); PLATELET COUNT 462 /CUMM (130-400); RBC DISTRIBUTION WIDTH 15.7 % (11.5-14.5); RED BLOOD CELL CT 3.59 /CUMM (4.20-5.40); WHITE BLOOD CELL COUNT 11.3 /CUMM (4.8-10.8)
[2016-12-03 05:36] LABS: GRANULOCYTE % 83.1 % (42.2-75.2)
--- NOTE | 2016-12-03 06:47 | RADIOLOGY REPORT ---
EXAMINATION: XR PORTABLE CHEST CLINICAL INFORMATION: Mechanical ventilation. COMPARISON: Chest x-ray 12/02/2016. TECHNIQUE: Portable AP portable view of the chest was obtained. 6:24 AM FINDINGS: Endotracheal tube catheter 2.6 cm above damari. Nasogastric tube tip in stomach. No pulmonary vascular congestion. Persistent dense consolidation left lung base with silhouetting left diaphragm. This is consolidation/atelectasis unchanged since prior study. IMPRESSION: No change since prior chest x-ray. Persistent dense consolidation/atelectasis at left lung base. Endotracheal tube catheter 2.6 cm above the damari. Nasogastric tube in the stomach.
--- NOTE | 2016-12-03 07:13 | PN- Resident CRCU ---
Subjective HPI/CRCU Issues: No acute events overnight. Weaning trials were unsuccessful yesterday. She continues to have diarrhea with 6 loose stools reported yesterday. She remains afebrile. She continues on Lasix drip with negative fluid balance. Patient was seen and examined this morning. She remains intubated and on mechanical ventilation but is awake, alert and comfortable. She feels improved today. She is currently on mechanical ventilation day #8 with the following vent settings: AC mode, tidal volume 500, FiO2 40%, RR 18 and PEEP 5. Objective Vital Signs & I&O Last 8 Hrs of Vitals and I&O: Vital Signs Date Time Temp Pulse Resp B/P Pulse O2 O2 Flow FiO2 Ox Delivery Rate 12/03 0935 40 12/03 0608 40 12/03 0400 98 Ventilator 40% 12/03 0339 40 12/03 0045 40 12/03 0000 98.6 102 18 118/82 96 Ventilator 40% 12/03 0000 96 Ventilator 40% 12/02 2254 40 12/02 2006 40 12/02 2000 97 Ventilator 40% 12/02 1642 40 12/02 1600 97.6 98 18 114/78 97 Ventilator 40% 12/02 1600 97 Ventilator 40% 12/02 1406 40 12/02 1200 96 Ventilator 40% Exam General Appearance: no apparent distress, alert, awake, comfortable, obese Respiratory: lungs clear Cardiovascular: regular rate/rhythm, normal S1 and S2, grade 3/6 systolic murmur Gastrointestinal: soft, mild diffuse tenderness to palpation, positive bowel sounds Extremities: no edema, no clubbing or cyanosis Skin: normal color, warm/dry Current Medications: Current Medications Sig/Lico Start time Last Medication Dose Route Stop Time Status Admin Albuterol Sulfate 3 ML EVERY 4 HRS/AWAKE 11/24 1200 AC 12/03 INH 0931 Enoxaparin Sodium 90 MG BID 11/29 2199 AC 12/03 SC 0949 Furosemide 20 MG BID 12/03 2199 AC IV Furosemide 20 MG BID 12/03 1115 DC IV PUSH Furosemide 100 MG Q12H 11/30 0745 DC 12/02 Sodium Chloride 100 ML IV 2016 Insulin Human Regular 0 Q6 11/29 1800 AC 12/03 SC 0610 Ipratropium [place] 2.5 ML EVERY 4 HRS/AWAKE 11/24 1200 AC 12/03 INH 0932 Lorazepam 1 MG ONCE ONE 12/02 1845 DC 12/02 IV 12/02 1846 1830 Lorazepam 0.5 MG BID PRN 11/26 1030 DC 12/03 IV 0051 Metronidazole 500 MG Q8 12/02 1315 AC 12/03 PO 0609 Morphine Sulfate 1 MG ONCE ONE 12/03 0515 DC 12/03 IV 12/03 0516 0517 Nystatin 1 ELYSIA TID 12/01 2200 AC 12/03 TOP 0949 Nystatin 5 ML 4 TIMES/DAY 12/01 1957 AC 12/03 PO 0950 Oxycodone/ 1 TAB .STK-MED ONE 12/03 0002 DC Acetaminophen PO 12/03 0003 Oxycodone/ 1 TAB ONCE ONE 12/02 2345 DC 12/03 Acetaminophen PO 12/02 2346 0009 Pantoprazole Sodium 40 MG DAILY 11/26 1032 AC 12/03 IV 0949 Polyethylene Glycol 17 GM DAILY 11/28 1000 AC 12/01 PO 1006 Potassium Chloride 60 MEQ ONCE ONE 12/03 0730 DC 12/03 PO 12/03 0731 0949 Prednisone 30 MG DAILY 12/04 1000 AC PO Prednisone 40 MG DAILY 12/01 1000 DC 12/03 PO 0949 Senna/Docusate Sodium 1 TAB BID 11/28 1000 AC 12/01 PO 1007 Results Results: Laboratory Tests 12/03 0400 Chemistry Sodium (137 - 145 mmol/L) 139 Potassium (3.5 - 5.1 mmol/L) 3.4 L Chloride (98 - 107 mmol/L) 94 L Carbon Dioxide (22 - 30 mmol/L) 32 H Anion Gap (5 - 16) 13 BUN (7 - 17 mg/dL) 32 H Creatinine (0.5 - 1.0 mg/dL) 1.1 H Estimated GFR (>60 ml/min) 52 L Glucose (65 - 99 mg/dL) 122 H Calcium (8.4 - 10.2 mg/dL) 9.2 Phosphorus (2.5 - 4.5 mg/dL) 4.3 Magnesium (1.6 - 2.3 mg/dL) 2.7 H Total Bilirubin (0.2 - 1.3 mg/dL) 0.7 AST (14 - 36 U/L) 31 ALT (9 - 52 U/L) 45 Albumin (3.5 - 5.0 g/dL) 3.5 Hematology CBC w Diff NO MAN DIFF REQ WBC (4.8 - 10.8 /CUMM) 11.3 H RBC (4.20 - 5.40 /CUMM) 3.59 L Hgb (12.0 - 16.0 G/DL) 10.9 L Hct (37 - 47 %) 33.2 L MCV (81.0 - 99.0 FL) 92.4 MCH (27.0 - 31.0 PG) 30.2 RDW (11.5 - 14.5 %) 15.7 H Plt Count (130 - 400 /CUMM) 462 H MPV (7.4 - 10.4 FL) 7.6 Gran % (42.2 - 75.2 %) 83.1 H Lymphocytes % (20.5 - 51.1 %) 11.4 L Monocytes % (1.7 - 9.3 %) 4.6 Eosinophils % (0 - 5 %) 0.8 Basophils % (0.0 - 2.0 %) 0.1 Absolute Granulocytes (1.4 - 6.5 /CUMM) 9.4 H Absolute Lymphocytes (1.2 - 3.4 /CUMM) 1.3 Absolute Monocytes (0.10 - 0.60 /CUMM) 0.5 Absolute Eosinophils (0.0 - 0.7 /CUMM) 0.1 Absolute Basophils (0.0 - 0.2 /CUMM) 0 PUBS MCHC (33.0 - 37.0 G/DL) 32.7 L CXR Findings: No change since prior chest x-ray. Persistent dense consolidation/atelectasis at left lung base. Endotracheal tube catheter 2.6 cm above the damari. Nasogastric tube in the stomach. 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 Problem List: 1. Bicuspid aortic valve 2. Mild mitral stenosis 3. On mechanically assisted ventilation 4. C. difficile diarrhea 5. Mitral insufficiency and aortic stenosis 6. Severe aortic stenosis 7. Rheumatic fever with cardiac involvement 8. CHF (congestive heart failure) 9. Acute hypoxemic respiratory failure Pain Ratin Tomorrow's Labs & Rationales: CBC and ICU bundle (ICU patient) Plan Respiratory: #Acute hypoxemic respiratory failure: On mechanical ventilation day #8 with the following vent settings: AC mode, tidal volume 500, FiO2 40%, RR 18 and PEEP 5. CXR with persistent dense consolidation/atelectasis at the left lung base. * Continue weaning trials. * Continue to check CXR daily. * Continue steroid taper. Decrease prednisone to 30 mg PO daily. * Continue Protonix 40 mg IV daily for GI PPx. Infectious Diseases: #Probable multilobar pneumonia: Remains afebrile. Mild leukocytosis secondary to steroids, improving on taper. Infectious work-up negative so far. S/p 7 days of ceftriaxone and doxycycline (11/23-11/30). * ID following. Appreciate their recs. * Continue to monitor off antibiotics. * Await bronchoscopy cytology and cultures. #C. difficile diarrhea: Stool came back positive for C. difficile yesterday and patient was started on PO Flagyl. Continues to have abdominal discomfort and diarrhea. * Continue Flagyl 500 mg PO TID. Cardiovascular: #CHF 2/2 severe aortic stenosis: [place] to be the most likely etiology for acute hypoxemic respiratory failure, given significant improvement after starting IV Lasix and KESHIA revealing a bicuspid aortic valve with severe valvular stenosis. * Cardiology following. Appreciate their recs. * Continue to monitor strict I/Os and daily weights. * Discontinue Lasix drip and transition to Lasix 20 mg IV BID. * Will most likely need cardiac catheterization and probably aortic valve replacement per cardiology. Hematology: #Anemia: H/H improving. 10.9/33.2 today. * Continue to monitor H/H. #CVA 2/2 cardiac emboli: * Continue Lovenox 90 mg SQ BID. Metabolic: #DAO: BUN/Cr have uptrended slightly after starting Lasix drip, 32/1.1 today. * Continue to monitor kidney function closely while patient is on Lasix drip. * Continue to monitor electrolytes and replete to K > 4, Mg > 2 and Phos > 3. Alimentary: Tube feeds. Neurological: Awake and alert. * Continue to monitor off sedation. DVT/Prophylaxis: mechanical, pharmacological Code Status: Full Code
[2016-12-03 08:00] VITALS: BP 118/80
--- NOTE | 2016-12-03 10:10 | PN- Infect Dx ---
Subjective Subjective: Afebrile on steroids. She continues to have diarrhea with 6 bowel movements reported yesterday. She also notes continued abdominal discomfort. Objective Last 24 Hrs of Vital Signs/I&O Vital Signs Date Time Temp Pulse Resp B/P Pulse O2 O2 Flow FiO2 Ox Delivery Rate 12/03 0935 40 12/03 0608 40 12/03 0400 98 Ventilator 40% 12/03 0339 40 12/03 0045 40 12/03 0000 98.6 102 18 118/82 96 Ventilator 40% 12/03 0000 96 Ventilator 40% 12/02 2254 40 12/02 2006 40 12/02 2000 97 Ventilator 40% 12/02 1642 40 12/02 1600 97.6 98 18 114/78 97 Ventilator 40% 12/02 1600 97 Ventilator 40% 12/02 1406 40 12/02 1200 96 Ventilator 40% 12/02 1123 40 Intake & Output 12/03 1600 12/03 0800 12/03 0000 Intake Total 354 345 Output Total 800 1300 Balance -446 -955 Intake, IV 40 40 Intake, Oral 0 Intake, Other 60 Intake, Tube 194 150 Feeding Intake, Tube 120 95 Irrigant Number 2 3 Bowel Movements Output, Urine 800 1300 Physical Exam Other Physical Findings: She is awake and alert, uncomfortable secondary to the ET tube, but in no acute distress Lungs scattered rhonchi bilaterally Heart regular rhythm with a 2/6 systolic ejection murmur Abdomen is soft, mildly tender on palpation diffusely, with no guarding or rebound, positive bowel sounds Extremities no cyanosis, clubbing or edema Scott catheter remains in place Results Last 24 Hours of Lab Results: Laboratory Tests 12/03 0400 Chemistry Sodium (137 - 145 mmol/L) 139 Potassium (3.5 - 5.1 mmol/L) 3.4 L Chloride (98 - 107 mmol/L) 94 L Carbon Dioxide (22 - 30 mmol/L) 32 H Anion Gap (5 - 16) 13 BUN (7 - 17 mg/dL) 32 H Creatinine (0.5 - 1.0 mg/dL) 1.1 H Estimated GFR (>60 ml/min) 52 L Glucose (65 - 99 mg/dL) 122 H Calcium (8.4 - 10.2 mg/dL) 9.2 Phosphorus (2.5 - 4.5 mg/dL) 4.3 Magnesium (1.6 - 2.3 mg/dL) 2.7 H Total Bilirubin (0.2 - 1.3 mg/dL) 0.7 AST (14 - 36 U/L) 31 ALT (9 - 52 U/L) 45 Albumin (3.5 - 5.0 g/dL) 3.5 Hematology CBC w Diff NO MAN DIFF REQ WBC (4.8 - 10.8 /CUMM) 11.3 H RBC (4.20 - 5.40 /CUMM) 3.59 L Hgb (12.0 - 16.0 G/DL) 10.9 L Hct (37 - 47 %) 33.2 L MCV (81.0 - 99.0 FL) 92.4 MCH (27.0 - 31.0 PG) 30.2 RDW (11.5 - 14.5 %) 15.7 H Plt Count (130 - 400 /CUMM) 462 H MPV (7.4 - 10.4 FL) 7.6 Gran % (42.2 - 75.2 %) 83.1 H Lymphocytes % (20.5 - 51.1 %) 11.4 L Monocytes % (1.7 - 9.3 %) 4.6 Eosinophils % (0 - 5 %) 0.8 Basophils % (0.0 - 2.0 %) 0.1 Absolute Granulocytes (1.4 - 6.5 /CUMM) 9.4 H Absolute Lymphocytes (1.2 - 3.4 /CUMM) 1.3 Absolute Monocytes (0.10 - 0.60 /CUMM) 0.5 Absolute Eosinophils (0.0 - 0.7 /CUMM) 0.1 Absolute Basophils (0.0 - 0.2 /CUMM) 0 PUBS MCHC (33.0 - 37.0 G/DL) 32.7 L Last 24 Hours of Michael Results: Stool C. difficile December 01 positive Recent Imaging Studies: Chest x-ray December 03, personally reviewed, reveals a persistent density at the left base Assessment/Plan Impression: Overall stable with regard to her respiratory status, though weaning trials were unsuccessful yesterday, now with stool positive for C. difficile, which explains her abdominal discomfort and diarrhea. She was begun on Flagyl yesterday, which can be continued for what appears to be mild/moderate disease. She remains afebrile (on steroids) with white blood cell count minimally elevated. Suggestion: 1. Further weaning trials and steroid taper per Pulmonary 2. Continue po Flagyl
--- NOTE | 2016-12-03 10:29 | PN- CRCU ---
Subjective HPI/Critical Care Issues: The patient is awake and alert. She is off sedation. She failed ventilator weaning yesterday and was not able to be extubated. She indicates today however that she is feeling improved and strong enough to be extubated. She is afebrile. She continues to have ongoing diarrhea, noting she is C. difficile positive and on PO Flagyl. She had significant diuresis over the past 24 hours noting she is over 2 L negative. Chest x-ray demonstrates dense consolidation/ atelectasis at the left lung base. Objective Current Medications: Current Medications Sig/Lico Start time Last Medication Dose Route Stop Time Status Admin Albuterol Sulfate 3 ML EVERY 4 HRS/AWAKE 11/24 1200 AC 12/03 INH 0931 Enoxaparin Sodium 90 MG BID 11/29 2200 AC 12/03 SC 0949 Furosemide 100 MG Q12H 11/30 0745 AC 12/02 Sodium Chloride 100 ML IV 2016 Insulin Human Regular 0 Q6 11/29 1800 AC 12/03 SC 0610 Ipratropium [place] 2.5 ML EVERY 4 HRS/AWAKE 11/24 1200 AC 12/03 INH 0932 Lorazepam 1 MG ONCE ONE 12/02 1845 DC 12/02 IV 12/02 1846 1830 Lorazepam 1 MG ONCE ONE 12/02 1130 DC 12/02 IV 12/02 1131 1135 Lorazepam 0.5 MG BID PRN 11/26 1030 AC 12/03 IV 0051 Metronidazole 500 MG Q8 12/02 1315 AC 12/03 PO 0609 Morphine Sulfate 1 MG ONCE ONE 12/03 0515 DC 12/03 IV 12/03 0516 0517 Nystatin 1 ELYSIA TID 12/01 2200 AC 12/03 TOP 0949 Nystatin 5 ML 4 TIMES/DAY 12/01 1957 AC 12/03 PO 0950 Oxycodone/ 1 TAB .STK-MED ONE 12/03 0002 DC Acetaminophen PO 12/03 0003 Oxycodone/ 1 TAB ONCE ONE 12/02 2345 DC 12/03 Acetaminophen PO 12/02 2346 0009 Pantoprazole Sodium 40 MG DAILY 11/26 1032 AC 12/03 IV 0949 Polyethylene Glycol 17 GM DAILY 11/28 1000 AC 12/01 PO 1006 Potassium Chloride 60 MEQ ONCE ONE 12/03 0730 DC 12/03 PO 12/03 0731 0949 Prednisone 40 MG DAILY 12/01 1000 AC 12/03 PO 0949 Senna/Docusate Sodium 1 TAB BID 11/28 1000 AC 12/01 PO 1007 Physical Exam General Appearance: intubated, comfortable, following commands Ears, Nose, Throat: moist mucus membranes Respiratory: crackles scattered througout bilateral lung verduzco, diminished bibasilar breath sounds Cardiovascular: regular rate/rhythm, normal S1 and S2, grade 3/6 systolic murmur Gastrointestinal: soft, non-tender, positive bowel sounds Extremities: no edema, warm and dry Vital Signs & I&O Last 24 Hrs of Vitals and I&O: Vital Signs Date Time Temp Pulse Resp B/P Pulse O2 O2 Flow FiO2 Ox Delivery Rate 12/03 0935 40 12/03 0608 40 12/03 0400 98 Ventilator 40% 12/03 0339 40 12/03 0045 40 12/03 0000 98.6 102 18 118/82 96 Ventilator 40% 12/03 0000 96 Ventilator 40% 12/02 2254 40 12/02 2006 40 12/02 2000 97 Ventilator 40% 12/02 1642 40 12/02 1600 97.6 98 18 114/78 97 Ventilator 40% 12/02 1600 97 Ventilator 40% 12/02 1406 40 12/02 1200 96 Ventilator 40% 12/02 1123 40 Intake & Output 12/03 1600 12/03 0800 12/03 0000 Intake Total 354 345 Output Total 800 1300 Balance -446 -955 Intake, IV 40 40 Intake, Oral 0 Intake, Other 60 Intake, Tube 194 150 Feeding Intake, Tube 120 95 Irrigant Number 2 3 Bowel Movements Output, Urine 800 1300 Results Last 24 Hrs of Lab Results: Laboratory Tests 12/03/16 0400: Anion Gap 13, Estimated GFR 52 L, Glucose 122 H, Calcium 9.2, Phosphorus 4.3, Magnesium 2.7 H, Total Bilirubin 0.7, AST 31, ALT 45, Albumin 3.5, CBC w Diff NO MAN DIFF REQ, RBC 3.59 L, MCV 92.4, MCH 30.2, RDW 15.7 H, MPV 7.6, Gran % 83.1 H, Lymphocytes % 11.4 L, Monocytes % 4.6, Eosinophils % 0.8, Basophils % 0.1, Absolute Granulocytes 9.4 H, Absolute Lymphocytes 1.3, Absolute Monocytes 0.5, Absolute Eosinophils 0.1, Absolute Basophils 0, PUBS MCHC 32.7 L Diagnostic Data CXR Findings: No change since prior chest x-ray. Persistent dense consolidation/atelectasis at left lung base. Endotracheal tube catheter 2.6 cm above the damari. Nasogastric tube in the stomach. Impression/Plan Impression/Plan Impression/Plan: 1. Acute hypoxemic respiratory failure and mediastinal lymphadenopathy. Differential diagnosis includes an infectious/inflammatory process with superimposed pulmonary edema. Chest x-ray positive for left lung atelectasis. 2. Leukocytosis, likely secondary to steroids. 3. Bicuspid aortic valve with aortic stenosis. 4. 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 5. Steroid dependent, seronegative rheumatoid arthritis. 6. Normocytic anemia. Recommendations: * Discontinue Lasix drip. * Start Lasix 20 mg IV every 12 hours. * Continue with weaning trials as tolerated. * We will extubate if parameters are acceptable. * Continue to monitor culture data. * Monitor off antibiotics as per ID. * Decrease prednisone to 30 mg daily. * Monitor off sedation. * Continue IV heparin. * Continue DVT/GI prophylaxis/ventilator bundle. * Continue all supportive care. Discussed with housestaff and cardiology. * The patient remains critically ill and needs ongoing close follow-up. Code Status: Full Code
[2016-12-03 12:00] VITALS: BP 130/80
--- NOTE | 2016-12-03 13:04 | PN- Cardiology ---
Subjective Subjective: Clinically improving. Hemodynamically stable. Diuresing well. Remains intubated. Objective Vital Signs and I&Os Vital Signs Date Time Temp Pulse Resp B/P Pulse O2 O2 Flow FiO2 Ox Delivery Rate 12/03 0935 40 12/03 0608 40 12/03 0400 98 Ventilator 40% 12/03 0339 40 12/03 0045 40 12/03 0000 98.6 102 18 118/82 96 Ventilator 40% 12/03 0000 96 Ventilator 40% 12/02 2254 40 12/02 2006 40 12/02 2000 97 Ventilator 40% 12/02 1642 40 12/02 1600 97.6 98 18 114/78 97 Ventilator 40% 12/02 1600 97 Ventilator 40% 12/02 1406 40 Intake & Output 12/03 1600 12/03 0800 12/03 0000 12/02 1600 12/02 0800 12/02 0000 Intake Total 354 345 242 24 34 Output Total 800 1300 9157 045 [id number] [facility] -446 -955 -858 -646 -1166 Intake, IV 40 40 30 24 34 Intake, Oral 0 0 Intake, Other 60 Intake, Tube 194 150 32 Feeding Intake, Tube 120 95 180 Irrigant Number 2 3 2 1 1 Bowel Movements Output, Urine [phone] Current Medications: Current Medications Sig/Lico Start time Last Medication Dose Route Stop Time Status Admin Albuterol Sulfate 3 ML EVERY 4 HRS/AWAKE 11/24 1200 12/03 INH 0931 Enoxaparin Sodium 90 MG BID 11/29 2200 12/03 GA 0949 Furosemide 20 MG BID 12/03 2199 IV Furosemide 20 MG BID 12/03 1115 DC IV PUSH Furosemide 100 MG Q12H 11/30 0745 PR 12/02 Sodium Chloride 100 ML IV 2016 Insulin Human Regular 0 Q6 11/29 1800 12/03 SC 0610 Ipratropium [place] 2.5 ML EVERY 4 HRS/AWAKE 11/24 1200 AC 12/03 INH 0932 Lorazepam 1 MG ONCE ONE 12/02 1845 DC 12/02 IV 12/02 1846 1830 Lorazepam 0.5 MG BID PRN 11/26 1030 PR 12/03 IV 0051 Metronidazole 500 MG Q8 12/02 1315 12/03 PO 0609 Morphine Sulfate 1 MG ONCE ONE 12/03 0515 DC 12/03 IV 12/03 0516 0517 Nystatin 1 ELYSIA TID 12/01 2200 12/03 TOP 0949 Nystatin 5 ML 4 TIMES/DAY 12/01 1957 AC 12/03 PO 0950 Oxycodone/ 1 TAB .STK-MED ONE 12/03 0002 DC Acetaminophen PO 12/03 0003 Oxycodone/ 1 TAB ONCE ONE 12/02 2345 DC 12/03 Acetaminophen PO 12/02 2346 0009 Pantoprazole Sodium 40 MG DAILY 11/26 1032 AC 12/03 IV 0949 Polyethylene Glycol 17 GM DAILY 11/28 1000 AC 12/01 PO 1006 Potassium Chloride 60 MEQ ONCE ONE 12/03 0730 DC 12/03 PO 12/03 0731 0949 Prednisone 30 MG DAILY 12/04 1000 AC PO Prednisone 40 MG DAILY 12/01 1000 DC 12/03 PO 0949 Senna/Docusate Sodium 1 TAB BID 11/28 1000 AC 12/01 PO 1007 Results Last 48 Hrs of Labs/Mics: Laboratory Tests 12/03/16 1225: pH 7.53 H, pCO2 36, pO2 144 H, HCO3 29 H, ABG O2 Sat (Measured) 98.0, P-50 ( Temp Corrected) N, Carboxyhemoglobin 0.5 L, O2 Concentration % 40%, O2 Delivery Method T-PIECE, Phlebotomy Draw Site RIGHT RADIAL 12/03/16 0400: Anion Gap 13, Estimated GFR 52 L, Glucose 122 H, Calcium 9.2, Phosphorus 4.3, Magnesium 2.7 H, Total Bilirubin 0.7, AST 31, ALT 45, Albumin 3.5, CBC w Diff NO MAN DIFF REQ, RBC 3.59 L, MCV 92.4, MCH 30.2, RDW 15.7 H, MPV 7.6, Gran % 83.1 H, Lymphocytes % 11.4 L, Monocytes % 4.6, Eosinophils % 0.8, Basophils % 0.1, Absolute Granulocytes 9.4 H, Absolute Lymphocytes 1.3, Absolute Monocytes 0.5, Absolute Eosinophils 0.1, Absolute Basophils 0, PUBS MCHC 32.7 L 12/02/16 0455: Anion Gap 11, Estimated GFR 58 L, Glucose 106 H, Calcium 9.0, Phosphorus 4.0, Magnesium 2.5 H, Total Bilirubin 0.7, AST 34, ALT 42, Albumin 3.1 L, CBC w Diff NO MAN DIFF REQ, RBC 3.32 L, MCV 93.5, MCH 30.4, RDW 15.4 H, MPV 7.6, Gran % 84.5 H, Lymphocytes % 10.8 L, Monocytes % 3.6, Eosinophils % 0.8, Basophils % 0.3, Absolute Granulocytes 9.6 H, Absolute Lymphocytes 1.2, Absolute Monocytes 0.4, Absolute Eosinophils 0.1, Absolute Basophils 0, PUBS MCHC 32.5 L Microbiology 12/01 1999 STOOL: Clostridium difficile Toxin A & B - COMP CLOSTRIDIUM DIFFICILE Assessment/Plan Assessment/Plan Assessment: 1. Acute hypoxic respiratory failure with bilateral infiltrates on chest x-ray and CT chest -At the present time, it is difficult to discern the underlying etiology of the patient's current respiratory issues. From a cardiac standpoint, the patient does have underlying bicuspid aortic valve with severe aortic stenosis and mild mitral stenosis with mild mitral insufficiency. The repeat echocardiogram done last night does not show any significant change from the prior echocardiogram of 2014, however, the images were technically limited quality. A KESHIA was performed today at the bedside in the ICU. This showed evidence of a bicuspid aortic valve with severe aortic stenosis. The valve area is approximately 0.9 cm. In addition she continues to have mild mitral stenosis, likely rheumatic in nature with mild mitral insufficiency. Her left ventricular function remains normal. Despite this fact, and the fact that her proBNP is elevated, the patient has multiple other issues including the chest x-ray findings, CAT scan findings, persistent intermittent fever despite antibiotics, markedly elevated sedimentation rate, CRP, and the history of viral prodrome. The possibility of other issues such as pneumonia in a an immune compromised host, viral pneumonia, underlying inflammatory issues, etc also in the differential. 2. History of hypertension 3. History of bicuspid aortic valve with aortic stenosis 4. 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 History of prior stroke 6. History of serial positive rheumatoid arthritis 7. Normocytic anemia 8. Markedly elevated sedimentation rate with elevated CRP Recommendations: -For now, I would continue all current supportive care -Continue diuresis with IV Lasix and transition to 20 BID rather than lasix drip. -Weaning trials as per pulmonary service -Continue as per the pulmonary/critical care service. -When the patient is stable and extubated, further plans can be made with respect to further evaluation for her valvular heart disease. Continue telemetry? No
--- NOTE | 2016-12-03 13:06 | NUR ---
@0700-RECEIVED PATIENT A&OX3, INTUBATED ON VENTILATOR 40% FIO2. HR IS 90S ON ELECTRIC HOIST OPERATOR-NORMAL SINUS RHYTHM. VSS. SOFT BILATERAL WRIST RESTRAINTS REMOVED. PATIENT FOLLOWING COMMANDS. SUH INSITU DRAINING C/Y URINE IN ADEQUATE AMOUNTS. NYSTATIN TO GROIN REDNESS. LASIX GTT INFUSING @ 5ML/HR OR 5MG/HR PER EMAR. TUBE FEED D/C'D PER DR VARELA IN ORDER TO PREPARE FOR EXTUBATION. CALL [place] IN HAND. AT BEDSIDE. @1035-PLACED ON CPAP WEAN TRIAL WITH PRESSURE SUPPORT 6 & PEEP 5 WITH 40% FIO2 BY RT-ANI. O2 SATS=98%. @1155-ETT PLACED ON T-PIECE 40% FIO2 BY ANI-RT PER DR VARELA WITH REPEAT ABGS IN APPROXIMATELY 30MINS. @1250-DR VARELA GAVE ANI-RT ORDER TO EXTUBATE. PATIENT EXTUBATED WITHOUT DIFFICULTY & OGT REMOVED AT THIS TIME. O2 SATS REMAIN 98% ON 40% AEROSOL MASK. LASIX GTT D/C'D PER EMAR. WILL CONTINUE TO MONITOR
[2016-12-03 16:00] VITALS: BP 107/75
[2016-12-04] VITALS: BP 108/72
[2016-12-04 05:10] LABS: ABSOLUTE BASOPHIL COUNT 0 /CUMM (0.0-0.2); ABSOLUTE EOSINOPHIL COUNT 0.2 /CUMM (0.0-0.7); ABSOLUTE GRANULOCYTE CT 9.8 /CUMM (1.4-6.5); ABSOLUTE LYMPH COUNT 1.4 /CUMM (1.2-3.4); ABSOLUTE MONOCYTE COUNT 0.6 /CUMM (0.10-0.60); BASOPHIL % 0.2 % (0.0-2.0); EOSINOPHIL % 1.6 % (0-5); GRANULOCYTE % 81.9 % (42.2-75.2); MEAN CORPUSCULAR HGB 29.5 PG (27.0-31.0); MEAN CORPUSCULAR HGB CONC 31.9 G/DL (33.0-37.0); MEAN CORPUSCULAR VOLUME 92.6 FL (81.0-99.0); MEAN PLATELET VOLUME 7.5 FL (7.4-10.4); PLATELET COUNT 473 /CUMM (130-400); RBC DISTRIBUTION WIDTH 15.7 % (11.5-14.5); RED BLOOD CELL CT 3.67 /CUMM (4.20-5.40)
--- NOTE | 2016-12-04 07:14 | PN- Resident CRCU ---
Subjective HPI/CRCU Issues: Patient was successfully extubated yesterday and has been doing much better today. She is comfortable and satting well on 3 L NC. IV Lasix drip was discontinued shortly after extubation yesterday. She remains afebrile. Patient was seen and examined this morning. She is awake, alert, oriented x3 and feels good. She reports incoordination while doing simple tasks such as eating. She also complains of left-sided flank pain that has been ongoing for the past few days. She has not had any recent episodes of diarrhea. Patient went into atrial fibrillation with rapid ventricular response this morning. This was confirmed by EKG. She complained of shortness of breath but denied chest pain. She was bolused with amiodarone 75 mg IV and started on amiodarone drip. She remains in atrial fibrillation but heart rate has improved from 140-150s to 100s. Objective Vital Signs & I&O Last 8 Hrs of Vitals and I&O: Vital Signs Date Time Temp Pulse Resp B/P Pulse O2 O2 Flow FiO2 Ox Delivery Rate 12/04 1230 150 100/60 12/04 1143 143 113/65 12/04 0847 96 Nasal 3.0L Cannula 12/04 0800 98 Nasal 3.0L Cannula 12/04 0800 97.1 76 20 104/74 98 Nasal 3.0L Cannula 12/04 0400 97 Nasal 3.0L Cannula 12/04 0000 98.2 89 20 108/72 96 Nasal 3.0L Cannula 12/04 0000 96 Nasal 3.0L Cannula 12/03 2000 96 Nasal 3.0L Cannula 12/03 1705 95 Nasal 3.0L Cannula 12/03 1600 98.5 96 24 107/75 97 Nasal 3.0L Cannula 12/03 1600 97 Nasal 3.0L Cannula Exam General Appearance: no apparent distress, alert, awake, comfortable, obese Head: atraumatic, normal appearance Ears, Nose, Throat: moist mucus membranes Neck: supple, no JVD Respiratory: crackles scattered throughout bilateral lung ver[place]zco Cardiovascular: regular rate/rhythm, normal S1 and S2, grade 3/6 systolic murmur Gastrointestinal: soft, positive bowel sounds, mild diffuse tenderness to palpation Extremities: no edema Skin: warm/dry Current Medications: Current Medications Sig/Lico Start time Last Medication Dose Route Stop Time Status Admin Albuterol Sulfate 3 ML EVERY 4 HRS/AWAKE 11/24 1200 AC 12/03 INH 2100 Enoxaparin Sodium 90 MG BID 11/29 2200 AC 12/03 SC 2230 Furosemide 20 MG BID 12/03 2200 AC 12/03 IV 2230 Furosemide 20 MG BID 12/03 1115 DC IV PUSH Furosemide 100 MG Q12H 11/30 0745 DC 12/02 Sodium Chloride 100 ML IV 2016 Insulin Human Regular 0 Q6 11/29 1800 AC 12/03 SC 0610 Ipratropium [place] 2.5 ML EVERY 4 HRS/AWAKE 11/24 1200 AC 12/03 INH 2100 Lorazepam 0.5 MG BID PRN 11/26 1030 DC 12/03 IV 0051 Metronidazole 500 MG Q8 12/02 1315 AC 12/04 PO 0644 Morphine Sulfate 1 MG Q6P PRN 12/03 1515 AC IV Nystatin 1 ELYSIA TID 12/01 2199 AC 12/03 TOP 2249 Nystatin 5 ML 4 TIMES/DAY 12/01 1957 AC 12/03 PO 1439 Pantoprazole Sodium 40 MG DAILY 11/26 1032 AC 12/03 IV 0949 Polyethylene Glycol 17 GM DAILY 11/28 1000 AC 12/01 PO 1006 Potassium Chloride 40 MEQ ONCE ONE 12/04 0800 CAN PO 12/04 0801 Potassium Chloride 10 MEQ ONCE ONE 12/04 0800 CAN PO 12/04 0801 Potassium Chloride 60 MEQ ONCE ONE 12/04 0800 DC PO 12/04 0801 Prednisone 30 MG DAILY 12/04 1000 AC PO Prednisone 40 MG DAILY 12/01 1000 DC 12/03 PO 0949 Senna/Docusate Sodium 1 TAB BID 11/28 1000 AC 12/01 PO 1007 Results Results: Laboratory Tests 12/04 12/03 0444 1225 Blood Gas pH (7.35 - 7.45 PH) 7.53 H pCO2 (35 - 45 TORR) 36 pO2 (80 - 100 TORR) 144 H HCO3 (21 - 28 MEQ/L) 29 H ABG O2 Sat (Measured) (>96.0 %) 98.0 P-50 (Temp Corrected) N Carboxyhemoglobin (1.5 - 5.0 %) 0.5 L O2 Concentration % 40% O2 Delivery Method T-PIECE Chemistry Sodium (137 - 145 mmol/L) 140 Potassium (3.5 - 5.1 mmol/L) 3.5 Chloride (98 - 107 mmol/L) 95 L Carbon Dioxide (22 - 30 mmol/L) 34 H Anion Gap (5 - 16) 11 BUN (7 - 17 mg/dL) 32 H Creatinine (0.5 - 1.0 mg/dL) 1.0 Estimated GFR (>60 ml/min) 58 L Glucose (65 - 99 mg/dL) 102 H Calcium (8.4 - 10.2 mg/dL) 9.5 Phosphorus (2.5 - 4.5 mg/dL) 3.9 Magnesium (1.6 - 2.3 mg/dL) 2.8 H Total Bilirubin (0.2 - 1.3 mg/dL) 0.7 AST (14 - 36 U/L) 26 ALT (9 - 52 U/L) 45 Albumin (3.5 - 5.0 g/dL) 3.5 Hematology CBC w Diff NO MAN DIFF REQ WBC (4.8 - 10.8 /CUMM) 12.0 H RBC (4.20 - 5.40 /CUMM) 3.67 L Hgb (12.0 - 16.0 G/DL) 10.9 L Hct (37 - 47 %) 34.0 L MCV (81.0 - 99.0 FL) 92.6 MCH (27.0 - 31.0 PG) 29.5 RDW (11.5 - 14.5 %) 15.7 H Plt Count (130 - 400 /CUMM) 473 H MPV (7.4 - 10.4 FL) 7.5 Gran % (42.2 - 75.2 %) 81.9 H Lymphocytes % (20.5 - 51.1 %) 11.3 L Monocytes % (1.7 - 9.3 %) 5.0 Eosinophils % (0 - 5 %) 1.6 Basophils % (0.0 - 2.0 %) 0.2 Absolute Granulocytes (1.4 - 6.5 /CUMM) 9.8 H Absolute Lymphocytes (1.2 - 3.4 /CUMM) 1.4 Absolute Monocytes (0.10 - 0.60 /CUMM) 0.6 Absolute Eosinophils (0.0 - 0.7 /CUMM) 0.2 Absolute Basophils (0.0 - 0.2 /CUMM) 0 PUBS MCHC (33.0 - 37.0 G/DL) 31.9 L Miscellaneous Phlebotomy Draw Site RIGHT RADIAL Bronchoalveolar lavage cytology (2/16/17): BRONCHIOALVEOLAR LAVAGE: CLUSTERS OF BLAND BRONCHIAL EPITHELIAL CELLS, PULMONARY MACROPHAGES, NEUTROPHILS, LYMPHOCYTES, AND RED BLOOD CELLS. FEATURES DIAGNOSTIC OF MALIGNANCY ARE NOT IDENTIFIED. 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 Problem List: 1. C. difficile diarrhea 2. Bicuspid aortic valve 3. Severe aortic stenosis 4. Mitral insufficiency and aortic stenosis 5. Anemia 6. Rheumatic fever with cardiac involvement 7. CHF (congestive heart failure) 8. Acute hypoxemic respiratory failure 9. Rheumatoid aortitis 10. Depression 11. Acute left flank pain Pain Ratin Tomorrow's Labs & Rationales: CBC and ICU bundle (ICU patient) Plan Respiratory: #Acute hypoxemic respiratory failure: Successfully extubated yesterday. Respiratory status stable. Satting well on 3 L NC without shortness of breath. * Provide supplemental oxygen as needed to keep SpO2 > 92%. * Decrease prednisone further to 20 mg daily. * PT evaluation requested. Infectious Diseases: #C. difficile diarrhea: Improving on day 2 of Flagyl. No recent episodes of diarrhea. * Continue Flagyl 500 mg PO TID. #Possible UTI: Patient has been complaining of left-sided flank pain that has been ongoing for several days. Need to rule out UTI given Scott in place. * UCx ordered. * Remove Scott. #Probable multilobar pneumonia: Remains afebrile and with persistent mild leukocytosis secondary to steroids. Infectious work-up negative so far. S/p 7 days of ceftriaxone and doxycycline (11/23-11/30). Bronchoalveolar cytology negative for malignancy. * ID following. Appreciate their recs. * Continue to monitor off antibiotics. Cardiovascular: #New-onset atrial fibrillation: Went into atrial fibrillation with rapid ventricular response this morning with HR to 140-150s. Amiodarone preferred over diltiazem in the setting of borderline hypotension. Bolused with amiodarone 75 mg IV x 2 and started on amiodarone drip. Remains in atrial fibrillation but heart rate has improved to 100s. EKG confirmed atrial fibrillation and was without any ST-T wave abnormalities. Troponin was negative. * Cardiology following. Appreciate their recs. * Continue amiodarone drip overnight. * Continue Lovenox 90 mg SQ BID which patient was already on. * Repeat EKG and troponin again in 6 hours. #CHF 2/2 severe aortic stenosis: [place] to be the most likely etiology for acute hypoxemic respiratory failure, given significant improvement after starting IV Lasix and KESHIA revealing a bicuspid aortic valve with severe valvular stenosis. * Continue to monitor strict I/Os and daily weights. * Continue Lasix 20 mg IV BID. * Will most likely need cardiac catheterization and probably aortic valve replacement in the future per cardiology. Hematology: #Anemia: H/H stable. 10.9/34.0. * Continue to monitor H/H. #CVA 2/2 cardiac emboli: * Continue Lovenox 90 mg SQ BID. * Resume prior to admission atorvastatin 10 mg PO QPM now that patient is able to take PO. Metabolic: #DAO: BUN/Cr, 32/1.0 today. * Continue to monitor kidney function and electrolytes. * Replete to K > 4 and Mg > 2. Alimentary: CHF Diet - Full chopped and thin liquids (to aid self-feeding in the setting of incoordination) Neurological: #Depression/anxiety: * Resume prior to admission Wellbutrin-XL 300 mg PO QAM, Lexapro 10 mg PO QPM and lorazepam 0.5 mg PO daily. DVT/Prophylaxis: mechanical, pharmacological Code Status: Full Code Other: #Rheumatoid arthritis: * Resume prior to admission hydroxychloroquine 400 mg PO BID.
[2016-12-04 08:00] VITALS: BP 104/74
--- NOTE | 2016-12-04 08:23 | RADIOLOGY REPORT ---
EXAMINATION: XR PORTABLE CHEST CLINICAL INFORMATION: Intubated and on mechanical ventilation. COMPARISON: 12/03/2016. TECHNIQUE: Portable AP view of the chest was obtained. FINDINGS: The endotracheal tube is been removed. The enteric tube is been removed. Cardiac leads overlie the chest. Low lung volumes. Small left pleural effusion with retrocardiac opacity. This is similar to prior. No pneumothorax. The cardiomediastinal silhouette is unchanged. IMPRESSION: Removal of the endotracheal and enteric tubes. Persistent small left pleural effusion with retrocardiac opacity.
--- NOTE | 2016-12-04 09:22 | PN- CRCU ---
Subjective HPI/Critical Care Issues: The patient is doing very well post extubation. She remains on 3 L nasal cannula with saturations in the high 90s. She is hemodynamically stable and afebrile. She reports having some difficulty with coordination however after extubation this has improved. She continues to have excellent urine output. She is taking in liquids and applesauce without issue. She is awaiting a swallowing evaluation. Objective Current Medications: Current Medications Sig/Lico Start time Last Medication Dose Route Stop Time Status Admin Albuterol Sulfate 3 ML EVERY 4 HRS/AWAKE 11/24 1200 AC 12/04 INH 0845 Enoxaparin Sodium 90 MG BID 11/29 2200 AC 12/03 SC 2230 Furosemide 20 MG BID 12/03 2200 AC 12/03 IV 2230 Furosemide 20 MG BID 12/03 1115 DC IV PUSH Furosemide 100 MG Q12H 11/30 0745 DC 12/02 Sodium Chloride 100 ML IV 2016 Insulin Human Regular 0 Q6 11/29 1800 AC 12/03 SC 0610 Ipratropium [place] 2.5 ML EVERY 4 HRS/AWAKE 11/24 1200 AC 12/04 INH 0845 Lorazepam 0.5 MG BID PRN 11/26 1030 DC 12/03 IV 0051 Metronidazole 500 MG Q8 12/02 1315 AC 12/04 PO 0644 Morphine Sulfate 1 MG Q6P PRN 12/03 1515 AC IV Nystatin 1 ELYSIA TID 12/01 2200 AC 12/03 TOP 2249 Nystatin 5 ML 4 TIMES/DAY 12/01 1957 AC 12/03 PO 1439 Pantoprazole Sodium 40 MG DAILY 11/26 1032 AC 12/03 IV 0949 Polyethylene Glycol 17 GM DAILY 11/28 1000 AC 12/01 PO 1006 Potassium Chloride 40 MEQ ONCE ONE 12/04 0800 CAN PO 12/04 0801 Potassium Chloride 10 MEQ ONCE ONE 12/04 0800 CAN PO 12/04 0801 Potassium Chloride 60 MEQ ONCE ONE 12/04 0800 DC PO 12/04 0801 Prednisone 30 MG DAILY 12/04 1000 AC PO Prednisone 40 MG DAILY 12/01 1000 DC 12/03 PO 0949 Senna/Docusate Sodium 1 TAB BID 11/28 1000 AC 12/01 PO 1007 Vital Signs & I&O Last 24 Hrs of Vitals and I&O: Vital Signs Date Time Temp Pulse Resp B/P Pulse O2 O2 Flow FiO2 Ox Delivery Rate 12/04 0847 96 Nasal 3.0L Cannula 12/04 0400 97 Nasal 3.0L Cannula 12/04 0000 98.2 89 20 108/72 96 Nasal 3.0L Cannula 12/04 0000 96 Nasal 3.0L Cannula 12/03 2000 96 Nasal 3.0L Cannula 12/03 1705 95 Nasal 3.0L Cannula 12/03 1600 98.5 96 24 107/75 97 Nasal 3.0L Cannula 12/03 1600 97 Nasal 3.0L Cannula 12/03 1405 96 Nasal 3.0L Cannula 12/03 1250 98 Aerosol 40% Mask 12/03 1200 98 T Piece 40% 12/03 1200 98.9 100 20 130/80 98 T Piece 40% 12/03 0935 40 Intake & Output 12/04 1600 12/04 0800 12/04 0000 Intake Total 460 360 Output Total 445 600 Balance 15 -240 Intake, Oral 460 360 Output, Urine 445 600 Physical Exam General Appearance: comfortable, awake and alert Ears, Nose, Throat: moist mucus membranes Respiratory: Decreased breath sounds but clear to auscultation Cardiovascular: regular rate/rhythm, normal S1 and S2, grade 3/6 systolic murmur Gastrointestinal: soft, non-tender, positive bowel sounds Extremities: no edema, warm and dry Results Last 24 Hrs of Lab Results: Laboratory Tests 12/04/16 0444: Anion Gap 11, Estimated GFR 58 L, Glucose 102 H, Calcium 9.5, Phosphorus 3.9, Magnesium 2.8 H, Total Bilirubin 0.7, AST 26, ALT 45, Albumin 3.5, CBC w Diff NO MAN DIFF REQ, RBC 3.67 L, MCV 92.6, MCH 29.5, RDW 15.7 H, MPV 7.5, Gran % 81.9 H, Lymphocytes % 11.3 L, Monocytes % 5.0, Eosinophils % 1.6, Basophils % 0.2, Absolute Granulocytes 9.8 H, Absolute Lymphocytes 1.4, Absolute Monocytes 0.6, Absolute Eosinophils 0.2, Absolute Basophils 0, PUBS MCHC 31.9 L 12/03/16 1225: pH 7.53 H, pCO2 36, pO2 144 H, HCO3 29 H, ABG O2 Sat (Measured) 98.0, P-50 ( Temp Corrected) N, Carboxyhemoglobin 0.5 L, O2 Concentration % 40%, O2 Delivery Method T-PIECE, Phlebotomy Draw Site RIGHT RADIAL Impression/Plan Impression/Plan Impression/Plan: 1. Acute hypoxemic respiratory failure and mediastinal lymphadenopathy, improved. 2. Leukocytosis, likely secondary to steroids, improving. 3. Bicuspid aortic valve with aortic stenosis. 4. 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 5. Steroid dependent, seronegative rheumatoid arthritis. 6. Normocytic anemia. 7. History of hypertension. 8. History of bicuspid aortic valve with aortic stenosis. 9. 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 10. History of prior stroke. Recommendations: * Continue Lasix 20 mg IV every 12 hours. * Continue to monitor culture data. * Monitor off antibiotics as per ID. * Decrease prednisone to 20 mg daily. Will continue to wean down to off. * Monitor off sedation. * Continue therapeutic Lovenox. * Advance diet as tolerated. * Continue DVT/GI prophylaxis/ventilator bundle. * Continue all supportive care. Discussed with housestaff and cardiology. Code Status: Full Code
--- NOTE | 2016-12-04 11:21 | PN- Infect Dx ---
Subjective Subjective: Afebrile on steroids. She feels well with no respiratory complaints status post extubation yesterday. She does report left sided back pain for the past several days but does not report any abdominal pain and has had no recent diarrhea. Objective Last 24 Hrs of Vital Signs/I&O Vital Signs Date Time Temp Pulse Resp B/P Pulse O2 O2 Flow FiO2 Ox Delivery Rate 12/04 0847 96 Nasal 3.0L Cannula 12/04 0800 98 Nasal 3.0L Cannula 12/04 0800 97.1 76 20 104/74 98 Nasal 3.0L Cannula 12/04 0400 97 Nasal 3.0L Cannula 12/04 0000 98.2 89 20 108/72 96 Nasal 3.0L Cannula 12/04 0000 96 Nasal 3.0L Cannula 12/03 2000 96 Nasal 3.0L Cannula 12/03 1705 95 Nasal 3.0L Cannula 12/03 1600 98.5 96 24 107/75 97 Nasal 3.0L Cannula 12/03 1600 97 Nasal 3.0L Cannula 12/03 1405 96 Nasal 3.0L Cannula 12/03 1250 98 Aerosol 40% Mask 12/03 1200 98 T Piece 40% 12/03 1200 98.9 100 20 130/80 98 T Piece 40% Intake & Output 12/04 1600 12/04 0800 12/04 0000 Intake Total 460 360 Output Total 445 600 Balance 15 -240 Intake, Oral 460 360 Output, Urine 445 600 Physical Exam Other Physical Findings: She appears well in no acute distress status post extubation Lungs bibasilar crackles Heart regular rhythm with 2/6 systolic ejection murmur Abdomen is soft, mild tenderness in the left upper quadrant, with no guarding or rebound, positive bowel sounds Back mild left CVA tenderness Extremities no cyanosis, clubbing or edema Scott catheter remains in place Results Last 24 Hours of Lab Results: Laboratory Tests 12/04 12/03 0444 1225 Blood Gas pH (7.35 - 7.45 PH) 7.53 H pCO2 (35 - 45 TORR) 36 pO2 (80 - 100 TORR) 144 H HCO3 (21 - 28 MEQ/L) 29 H ABG O2 Sat (Measured) (>96.0 %) 98.0 P-50 (Temp Corrected) N Carboxyhemoglobin (1.5 - 5.0 %) 0.5 L O2 Concentration % 40% O2 Delivery Method T-PIECE Chemistry Sodium (137 - 145 mmol/L) 140 Potassium (3.5 - 5.1 mmol/L) 3.5 Chloride (98 - 107 mmol/L) 95 L Carbon Dioxide (22 - 30 mmol/L) 34 H Anion Gap (5 - 16) 11 BUN (7 - 17 mg/dL) 32 H Creatinine (0.5 - 1.0 mg/dL) 1.0 Estimated GFR (>60 ml/min) 58 L Glucose (65 - 99 mg/dL) 102 H Calcium (8.4 - 10.2 mg/dL) 9.5 Phosphorus (2.5 - 4.5 mg/dL) 3.9 Magnesium (1.6 - 2.3 mg/dL) 2.8 H Total Bilirubin (0.2 - 1.3 mg/dL) 0.7 AST (14 - 36 U/L) 26 ALT (9 - 52 U/L) 45 Albumin (3.5 - 5.0 g/dL) 3.5 Hematology CBC w Diff NO MAN DIFF REQ WBC (4.8 - 10.8 /CUMM) 12.0 H RBC (4.20 - 5.40 /CUMM) 3.67 L Hgb (12.0 - 16.0 G/DL) 10.9 L Hct (37 - 47 %) 34.0 L MCV (81.0 - 99.0 FL) 92.6 MCH (27.0 - 31.0 PG) 29.5 RDW (11.5 - 14.5 %) 15.7 H Plt Count (130 - 400 /CUMM) 473 H MPV (7.4 - 10.4 FL) 7.5 Gran % (42.2 - 75.2 %) 81.9 H Lymphocytes % (20.5 - 51.1 %) 11.3 L Monocytes % (1.7 - 9.3 %) 5.0 Eosinophils % (0 - 5 %) 1.6 Basophils % (0.0 - 2.0 %) 0.2 Absolute Granulocytes (1.4 - 6.5 /CUMM) 9.8 H Absolute Lymphocytes (1.2 - 3.4 /CUMM) 1.4 Absolute Monocytes (0.10 - 0.60 /CUMM) 0.6 Absolute Eosinophils (0.0 - 0.7 /CUMM) 0.2 Absolute Basophils (0.0 - 0.2 /CUMM) 0 PUBS MCHC (33.0 - 37.0 G/DL) 31.9 L Miscellaneous Phlebotomy Draw Site RIGHT RADIAL Last 24 Hours of Michael Results: No recent cultures Recent Imaging Studies: Chest x-ray December 04 overall improved with small left pleural effusion and retrocardiac opacity Assessment/Plan Impression: Overall doing well status post successful extubation yesterday with temperatures remaining normal (on steroids) and with mild leukocytosis now Day 2 of Flagyl for C. difficile with diarrhea improved. Her left flank pain/tenderness is of unclear etiology but, with a Scott catheter in place, would rule out a urinary tract infection. Suggestion: 1. Obtain a urine culture 2. Remove Scott catheter 3. Continue po Flagyl
--- NOTE | 2016-12-04 11:39 | PN- Cardiology ---
Subjective Subjective: The patient is awake and alert and doing much better today. She was extubated yesterday. Today, she is feeling fine and denies any specific complaints. Diarrhea improved. Objective Vital Signs and I&Os Vital Signs Date Time Temp Pulse Resp B/P Pulse O2 O2 Flow FiO2 Ox Delivery Rate 12/04 0847 96 Nasal 3.0L Cannula 12/04 08 98 Nasal 3.0L Cannula 12/04 08 97.1 76 20 104/74 98 Nasal 3.0L Cannula 12/04 0400 97 Nasal 3.0L Cannula 12/04 0000 98.2 89 20 108/72 96 Nasal 3.0L Cannula 12/04 0000 96 Nasal 3.0L Cannula 12/03 2000 96 Nasal 3.0L Cannula 12/03 1705 95 Nasal 3.0L Cannula 12/03 1600 98.5 96 24 107/75 97 Nasal 3.0L Cannula 12/03 1600 97 Nasal 3.0L Cannula 12/03 1405 96 Nasal 3.0L Cannula 12/03 1250 98 Aerosol 40% Mask 12/03 1200 98 T Piece 40% 12/03 1200 98.9 100 20 130/80 98 T Piece 40% Intake & Output 12/04 1600 12/04 0800 12/04 0000 12/03 1600 12/03 0800 12/03 0000 Intake Total 460 360 423 354 345 Output Total 445 600 502 477 6480 Balance 15 -240 -477 -446 -955 Intake, IV 63 40 40 Intake, Oral 460 360 120 0 Intake, Other 240 60 Intake, Tube 194 150 Feeding Intake, Tube 120 95 Irrigant Number 2 2 3 Bowel Movements Output, Urine 445 600 178 548 9191 Physical Exam: General Appearance: Alert, Oriented X3, Cooperative, no specific complaints Skin: Normal HEENT: Atraummatic Neck: Supple, JVP normal Cardiovascular: Regular Rate, slightly tachycardic Normal S1, Normal S2, 3/6 systolic ejection murmur Lungs: bilateral rhonchi with decreased breath sounds Abdomen: Normal Bowel Sounds, Soft, No Tenderness Neurological: Normal Speech, Normal Tone Extremities: No Edema, Normal Pulses Vascular: Normal Pulses, Pulses Symmetrical Current Medications: Current Medications Sig/Lico Start time Last Medication Dose Route Stop Time Status Admin Albuterol Sulfate 3 ML EVERY 4 HRS/AWAKE 11/24 1200 AC 12/04 INH 0845 Amiodarone HCl/ 75 MG ONCE ONE 12/04 1145 UNVr Dextrose IV 12/04 1149 N/A 1 UNIT Amiodarone HCl/ 360 MG Q12H 12/04 1145 UNVr Dextrose IV N/A 1 UNIT Enoxaparin Sodium 90 MG BID 11/29 220 AC 12/03 SC 2230 Furosemide 20 MG BID 12/03 220 AC 12/03 IV 2230 Furosemide 20 MG BID 12/03 1115 DC IV PUSH Insulin Human Regular 0 Q6 11/29 1800 AC 12/03 SC 0610 Ipratropium [place] 2.5 ML EVERY 4 HRS/AWAKE 11/24 1200 AC 12/04 INH 0845 Metronidazole 500 MG Q8 12/02 1315 AC 12/04 PO 0644 Morphine Sulfate 1 MG Q6P PRN 12/03 1515 AC IV Nystatin 1 ELYSIA TID 12/01 2199 AC 12/03 TOP 2249 Nystatin 5 ML 4 TIMES/DAY 12/01 1957 AC 12/03 PO 1439 Pantoprazole Sodium 40 MG DAILY 11/26 1032 AC 12/03 IV 0949 Polyethylene Glycol 17 GM DAILY 11/28 1000 AC 12/01 PO 1006 Potassium Chloride 40 MEQ ONCE ONE 12/04 0800 CAN PO 12/04 0801 Potassium Chloride 10 MEQ ONCE ONE 12/04 0800 CAN PO 12/04 0801 Potassium Chloride 60 MEQ ONCE ONE 12/04 0800 DC 12/04 PO 12/04 0801 1104 Prednisone 20 MG DAILY 12/04 1100 AC PO Prednisone 30 MG DAILY 12/04 1000 DC PO Senna/Docusate Sodium 1 TAB BID 11/28 1000 AC 12/01 PO 1007 Results Last 48 Hrs of Labs/Mics: Laboratory Tests 12/04/16 0444: Anion Gap 11, Estimated GFR 58 L, Glucose 102 H, Calcium 9.5, Phosphorus 3.9, Magnesium 2.8 H, Total Bilirubin 0.7, AST 26, ALT 45, Albumin 3.5, CBC w Diff NO MAN DIFF REQ, RBC 3.67 L, MCV 92.6, MCH 29.5, RDW 15.7 H, MPV 7.5, Gran % 81.9 H, Lymphocytes % 11.3 L, Monocytes % 5.0, Eosinophils % 1.6, Basophils % 0.2, Absolute Granulocytes 9.8 H, Absolute Lymphocytes 1.4, Absolute Monocytes 0.6, Absolute Eosinophils 0.2, Absolute Basophils 0, PUBS MCHC 31.9 L 12/03/16 1225: pH 7.53 H, pCO2 36, pO2 144 H, HCO3 29 H, ABG O2 Sat (Measured) 98.0, P-50 ( Temp Corrected) N, Carboxyhemoglobin 0.5 L, O2 Concentration % 40%, O2 Delivery Method T-PIECE, Phlebotomy Draw Site RIGHT RADIAL 12/03/16 0400: Anion Gap 13, Estimated GFR 52 L, Glucose 122 H, Calcium 9.2, Phosphorus 4.3, Magnesium 2.7 H, Total Bilirubin 0.7, AST 31, ALT 45, Albumin 3.5, CBC w Diff NO MAN DIFF REQ, RBC 3.59 L, MCV 92.4, MCH 30.2, RDW 15.7 H, MPV 7.6, Gran % 83.1 H, Lymphocytes % 11.4 L, Monocytes % 4.6, Eosinophils % 0.8, Basophils % 0.1, Absolute Granulocytes 9.4 H, Absolute Lymphocytes 1.3, Absolute Monocytes 0.5, Absolute Eosinophils 0.1, Absolute Basophils 0, PUBS MCHC 32.7 L Assessment/Plan Assessment/Plan Assessment: 1. Acute hypoxic respiratory failure with bilateral infiltrates on chest x-ray and CT chest -At the present time, it is difficult to discern the underlying etiology of the patient's current respiratory issues. From a cardiac standpoint, the patient does have underlying bicuspid aortic valve with severe aortic stenosis and mild mitral stenosis with mild mitral insufficiency. The repeat echocardiogram done last night does not show any significant change from the prior echocardiogram of 2015, however, the images were technically limited quality. A KESHIA was performed today at the bedside in the ICU. This showed evidence of a bicuspid aortic valve with severe aortic stenosis. The valve area is approximately 0.9 cm. In addition she continues to have mild mitral stenosis, likely rheumatic in nature with mild mitral insufficiency. Her left ventricular function remains normal. Despite this fact, and the fact that her proBNP is elevated, the patient has multiple other issues including the chest x-ray findings, CAT scan findings, persistent intermittent fever despite antibiotics, markedly elevated sedimentation rate, CRP, and the history of viral prodrome. The possibility of other issues such as pneumonia in a an immune compromised host, viral pneumonia, underlying inflammatory issues, etc also in the differential. 2. History of hypertension 3. History of bicuspid aortic valve with aortic stenosis 4. 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 History of prior stroke 6. History of serial positive rheumatoid arthritis 7. Normocytic anemia 8. Markedly elevated sedimentation rate with elevated CRP 9. New onset atrial fibrillation Recommendations: -Continue current supportive care -Continue oral Lasix with close monitoring of intakes, outputs, daily weights, potassium and magnesium levels. Replete magnesium and potassium as necessary. -Continue as per pulmonary critical care -Physical therapy evaluation -The patient went into atrial fibrillation with a rapid ventricular response this morning. In view of the patient's borderline systolic blood pressures, bolused with amiodarone IV 75 mg and start amiodarone drip. The patient is already anticoagulated. -Recheck potassium and magnesium and replete as necessary -Once stable from a pulmonary critical care standpoint, the patient can be transferred to the telemetry floor. Continue telemetry? Yes
--- NOTE | 2016-12-04 14:07 | NUR ---
PHYSICAL THERAPY- CONSULT RECEIVED, CHART REVIEWED. PT NOW IN AFIB W/ RVR, D/W PT'S RN WHO REQUESTED TO DEFER EVAL UNTIL AM WHILE ATTEMPTING TO CONTROL RATE. WILL CHECK BACK AND FOLLOW APPROPRIATE.
[2016-12-04 16:00] VITALS: BP 92/60
--- NOTE | 2016-12-04 18:53 | NUR ---
APPROX 1115, PT HR WENT UP TO 150-160'S-RAPID AFIB. PT REPORTED SOB, - FOR CHEST PAIN. EKG/TROPONIN/ICU PANEL OBTAINED. PT GIVEN AMIO 75 BOLUS X 2 AND STARTED ON AMIO GTT AT 1MG PER HR. PER DR ESTEVES, PT TO STAY ON DOSE OVERNIGHT, HR CONTINUES TO FLUCTUATE TO 140'S. REPEAT EKG/TROPONIN OBTAINED AT 1730. PT NO LONGER HAS SOB, STILL - FOR CP AND IS COMFORTABLE; OFFERS NO COMPLAINTS. K OF 3.6 REPLETED PO. PT RESTARTED ON HOME MEDS. PASSED SWALLOW EVAL AND STARTED ON CHF DIET.
[2016-12-05] VITALS: BP 98/70
--- NOTE | 2016-12-05 02:15 | NUR ---
0105= PT NOTED TO BE IN A NSR. MD BROWN MADE AWARE. NO NEW ORDERS, CONTINUE AMIO GTT 33.3ML/HR, HR 70 NSR. BBB.
[2016-12-05 05:39] LABS: ABSOLUTE BASOPHIL COUNT 0 /CUMM (0.0-0.2); ABSOLUTE EOSINOPHIL COUNT 0.2 /CUMM (0.0-0.7); ABSOLUTE GRANULOCYTE CT 10.7 /CUMM (1.4-6.5); ABSOLUTE LYMPH COUNT 1.1 /CUMM (1.2-3.4); ABSOLUTE MONOCYTE COUNT 0.6 /CUMM (0.10-0.60); BASOPHIL % 0.2 % (0.0-2.0); EOSINOPHIL % 1.4 % (0-5); GRANULOCYTE % 85.2 % (42.2-75.2); HEMATOCRIT 32.6 % (37-47); MEAN CORPUSCULAR HGB 29.7 PG (27.0-31.0); MEAN CORPUSCULAR HGB CONC 32.3 G/DL (33.0-37.0); MEAN CORPUSCULAR VOLUME 91.9 FL (81.0-99.0); MEAN PLATELET VOLUME 7.8 FL (7.4-10.4); PLATELET COUNT 457 /CUMM (130-400); RBC DISTRIBUTION WIDTH 15.6 % (11.5-14.5); RED BLOOD CELL CT 3.55 /CUMM (4.20-5.40); WHITE BLOOD CELL COUNT 12.6 /CUMM (4.8-10.8)
[2016-12-05 08:00] VITALS: BP 110/74
--- NOTE | 2016-12-05 08:59 | PN- CRCU ---
Subjective HPI/Critical Care Issues: pt seen and examined doing well had a.fib that converted to sinus doing well can be dg to tele if okay with cardiology Objective Current Medications: Current Medications Sig/Lico Start time Last Medication Dose Route Stop Time Status Admin Albuterol Sulfate 3 ML EVERY 4 HRS/AWAKE 11/24 1200 AC 12/05 INH 0737 Amiodarone HCl 150 MG .STK-MED ONE 12/04 1316 DC IV 12/04 1317 Amiodarone HCl 150 MG .STK-MED ONE 12/04 1133 DC IV 12/04 1134 Amiodarone HCl/ 360 MG Q6H 12/05 0700 AC 12/05 Dextrose IV 0631 N/A 1 UNIT Amiodarone HCl/ 75 MG ONCE ONE 12/04 1315 DC 12/04 Dextrose IV 12/04 1319 1328 N/A 1 UNIT Amiodarone HCl/ 360 MG Q12H 12/04 1200 DC 12/04 Dextrose IV 2342 N/A 1 UNIT Amiodarone HCl/ 75 MG ONCE ONE 12/04 1145 DC 12/04 Dextrose IV 12/04 1149 1143 N/A 1 UNIT Amiodarone HCl/ 360 MG Q12H 12/04 1145 DC Dextrose IV N/A 1 UNIT Atorvastatin Calcium 10 MG QPM 12/04 2200 AC 12/04 PO 2129 Bupropion HCl 300 MG 0800 12/05 0800 AC PO Enoxaparin Sodium 90 MG BID 11/29 2200 AC 12/04 SC 2130 Escitalopram Oxalate 10 MG QPM 12/04 2200 AC 12/04 PO 2130 Furosemide 20 MG BID 12/03 2200 AC 12/04 IV 2131 Hydroxychloroquine 200 MG BID 12/04 1413 AC 12/04 Sulfate PO 2128 Insulin Human Regular 0 Q6 11/29 1800 DC 12/03 SC 0610 Ipratropium [place] 2.5 ML EVERY 4 HRS/AWAKE 11/24 1200 AC 12/05 INH 0737 Lorazepam 0.5 MG AT BEDTIME 12/04 2200 AC 12/04 PO 12/11 2159 2132 Lorazepam 0.5 MG DAILY 12/04 1416 DC PO 12/11 1415 Melatonin 3 MG AT BEDTIME NEED.. 12/04 2345 AC 12/04 PO 2341 Metronidazole 500 MG Q8 12/02 1315 AC 12/05 PO 0559 Morphine Sulfate 1 MG Q6P PRN 12/03 1515 AC 12/04 IV 1942 Nystatin 1 ELYSIA TID 12/01 2200 AC 12/04 TOP 2342 Nystatin 5 ML 4 TIMES/DAY 12/01 1957 AC 12/04 PO 2129 Ondansetron HCl 4 MG Q6P PRN 12/05 0815 AC 12/05 IV 0812 Pantoprazole Sodium 40 MG DAILY 11/26 1032 AC 12/04 IV 1110 Polyethylene Glycol 17 GM DAILY 11/28 1000 AC 12/01 PO 1006 Potassium Chloride 40 MEQ ONCE ONE 12/04 1315 CAN PO 12/04 1316 Potassium Chloride 40 MEQ ONCE ONE 12/04 1315 DC 12/04 PO 12/04 1316 1327 Prednisone 20 MG DAILY 12/04 1100 AC 12/04 PO 1108 Prednisone 30 MG DAILY 12/04 1000 DC 12/04 PO 1111 Senna/Docusate Sodium 1 TAB BID 11/28 1000 AC 12/04 PO 2130 Vital Signs & I&O Last 24 Hrs of Vitals and I&O: Vital Signs Date Time Temp Pulse Resp B/P Pulse O2 O2 Flow FiO2 Ox Delivery Rate 12/05 0740 93 Room Air Room Air 12/05 0631 72 102/71 12/05 0400 95 Room Air Room Air 12/05 0000 97.9 94 18 98/70 93 Room Air Room Air 12/05 0000 93 Room Air Room Air 12/04 2342 101 90/60 12/04 2000 96 Nasal 2.0L Cannula 12/04 1717 Ventilator 100% 12/04 1716 97 Nasal 3.0L Cannula 12/04 1600 96.9 118 20 92/60 98 Nasal 3.0L Cannula 12/04 1600 98 Nasal 3.0L Cannula 12/04 1230 150 100/60 12/04 1200 98 Nasal 3.0L Cannula 12/04 1143 143 113/65 Intake & Output 12/05 1600 12/05 0800 12/05 0000 Intake Total 556 1523 Output Total 550 1100 Balance 6 423 Intake, IV 256 503 Intake, Oral 300 1020 Number 0 1 Bowel Movements Output, Urine 550 1100 Exam Other Physical Findings: gen awake and alert heent ncat cvs s1, s2, +murmur lungs diminished bs at bases abd soft bs+ ext without edema Results Last 24 Hrs of Lab Results: Laboratory Tests 12/05/16 0450: Anion Gap 11, Estimated GFR > 60, Glucose 111 H, Calcium 9.1, Phosphorus 3.3, Magnesium 2.5 H, Total Bilirubin 0.5, AST 24, ALT 42, Albumin 3.2 L, CBC w Diff MAN DIFF ORDERED, RBC 3.55 L, MCV 91.9, MCH 29.7, RDW 15.6 H, MPV 7.8, Gran % 85.2 H, Lymphocytes % 8.4 L, Monocytes % 4.8, Eosinophils % 1.4, Basophils % 0.2, Absolute Granulocytes 10.7 H, Absolute Lymphocytes 1.1 L, Absolute Monocytes 0.6, Absolute Eosinophils 0.2, Absolute Basophils 0, Platelet Estimate ADEQUATE, Normocytic RBCs VERIFIED, Normochromic RBCs VERIFIED, PUBS MCHC 32.3 L 12/04/16 1740: Troponin I < 0.01 12/04/16 1140: Sodium Cancelled, Potassium Cancelled, Chloride Cancelled, Carbon Dioxide Cancelled, Anion Gap Cancelled, BUN Cancelled, Creatinine Cancelled, Glucose Cancelled, Calcium Cancelled, Phosphorus Cancelled, Magnesium Cancelled, Total Bilirubin Cancelled, AST Cancelled, ALT Cancelled, Albumin Cancelled 12/04/16 1140: Anion Gap 11, Estimated GFR > 60, Glucose 110 H, Calcium 9.3, Phosphorus 3.4, Magnesium 2.5 H, Total Bilirubin 0.6, AST 26, ALT 43, Troponin I < 0.01, Albumin 3.6 Impression/Plan Impression/Plan Impression/Plan: Impression 51 year old woman -improved acute hypoxemic respiratory failure and mediastinal lymphadenopathy, improved. - stable leukocytosis, likely secondary to steroids, improving. - Bicuspid aortic valve with aortic stenosis. 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 - Steroid dependent, seronegative rheumatoid arthritis. - Normocytic anemia. - Hypertension. 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 - History of CVA - A.fib converted to sinus rhythm - C.diff on flagyl Plan - a.fib now resolved, in sinus rhythm - f/u cardiology - on amiodarone, therapeutic lovenox - 1L positive, continue lasix - Flagyl for C.Diff - steroid taper as ordered DVT prophylaxis at all times TTS 35 min Code Status: Full Code
--- NOTE | 2016-12-05 10:21 | NUR ---
PT HAD C/O NAUSEA AT 0800. DR ANEESH BROWN NOTIFIED AND THE PT WAS ADMINISTERED ZOFRAN 4MG IV AT 0800. PER PT'S REQUEST THE WELLBUTIRN XL 300MG PO DUE AT 0800 WAS ADMINISTERED WITH 1000 MEDS. PT RECEIVED RELIEF FROM ZOFRAN. PT AND NOTIFIED PT HAS BEEN DOWNGRADED TO TELEMETRY.
--- NOTE | 2016-12-05 10:38 | PN- Resident CRCU ---
Subjective HPI/CRCU Issues: I followed up and examined the patient today. She is resting comfortably in her bed, fully alert, awake, oriented and not in any acute distress. She tried getting out of bed onto the chair with the help of physical therapist, he did some assistance. Vitals stable overnight, her cardiac rhythm changed to sinus rhythm this morning, and EKG has been obtained for record. No overnight issues. Objective Vital Signs & I&O Last 8 Hrs of Vitals and I&O: Vital Signs Date Time Temp Pulse Resp B/P Pulse O2 O2 Flow FiO2 Ox Delivery Rate 12/05 1701 96 Room Air 12/05 1600 Room Air 12/05 1600 98.7 84 20 106/70 94 Room Air 12/05 1236 97.3 84 20 110/74 Intake & Output 12/05 1600 Intake Total Output Total Balance Number 1 Bowel Movements Exam General Appearance: well developed/nourished, no apparent distress, alert, awake , comfortable, obese Other Physical Findings: Head: atraumatic, normal appearance Ears, Nose, Throat: moist mucus membranes Neck: supple, no JVD Respiratory: crackles scattered throughout bilateral lung verduzco Cardiovascular: regular rate/rhythm, normal S1 and S2, grade 3/6 systolic murmur Gastrointestinal: soft, positive bowel sounds, mild diffuse tenderness to palpation Extremities: no edema Skin: warm/dry Nutrition Nutrition: P.O. diet Current Medications: Current Medications Sig/Lico Start time Last Medication Dose Route Stop Time Status Admin Albuterol Sulfate 3 ML EVERY 4 HRS/AWAKE 11/24 1200 AC 12/05 INH 1701 Amiodarone HCl/ 360 MG Q6H 12/05 0700 AC 12/05 Dextrose IV 1932 N/A 1 UNIT Amiodarone HCl/ 360 MG Q12H 12/04 1200 DC 12/04 Dextrose IV 2342 N/A 1 UNIT Atorvastatin Calcium 10 MG QPM 12/04 220 AC 12/04 PO 2129 Bupropion HCl 300 MG 0812/05 0800 AC 12/05 PO 0953 Enoxaparin Sodium 90 MG BID 11/29 2199 AC 12/05 SC 0951 Escitalopram Oxalate 10 MG QPM 12/04 220 AC 12/04 PO 2130 Furosemide 20 MG 7:30 AM, & 4:30 PM 12/06 0730 AC PO Furosemide 20 MG BID 12/03 2199 DC 12/05 IV 0951 Hydroxychloroquine 200 MG BID 12/04 1413 AC 12/05 Sulfate PO 0951 Ipratropium [place] 2.5 ML EVERY 4 HRS/AWAKE 11/24 1200 AC 12/05 INH 1701 Lorazepam 0.5 MG AT BEDTIME 12/04 2200 AC 12/04 PO 12/11 2158 213 Melatonin 3 MG AT BEDTIME NEED.. 12/04 2345 AC 12/04 PO 2341 Metronidazole 500 MG Q8 12/02 1315 AC 12/05 PO 1430 Morphine Sulfate 1 MG Q6P PRN 12/03 1515 AC 12/04 IV 1942 Nystatin 1 ELYSIA TID 12/01 2200 AC 12/05 TOP 1610 Nystatin 5 ML 4 TIMES/DAY 12/01 1957 AC 12/05 PO 1932 Ondansetron HCl 4 MG Q6P PRN 12/05 0815 AC 12/05 IV 0812 Pantoprazole Sodium 40 MG DAILY 11/26 1032 AC 12/05 IV 0951 Polyethylene Glycol 17 GM DAILY 11/28 1000 AC 12/01 PO 1006 Prednisone 10 MG DAILY 12/06 1000 AC PO Prednisone 20 MG DAILY 12/04 1100 AC 12/05 PO 12/06 0959 0951 Senna/Docusate Sodium 1 TAB BID 11/28 1000 AC 12/04 PO 2130 Impression/Plan Impression/Problem List Impression: 51 y/o F with PMHx of seronegative rheumatoid arthritis, rheumatic fever c/b mitral valve stenosis and insufficiency and CVA 2/2 cardiac embolism who is admitted for acute hypoxemic respiratory failure. Remains intubated and sedated. She is currently being managed in the ICU for the following issues: Respiratory: #Acute hypoxemic respiratory failure: Off mechanical ventilation day Significant improvement from yesterday. * Continue prednisone taper. But need to confirm if she requires a daily dose for rheumatoid arthritis as she is mentioned to be steroid dependent in her records Infectious Diseases: #Probable multilobar pneumona: Remains afebrile. Mild leukocytosis has persisted. Infectious work-up negative so far. Bronchoalveolar lavage bacterial Cx with no growth so far and AFP smear negative. Fungal Cx and PCP PCR pending. Procalcitonin (1.17, ref range: <0.10) and LDH (1125, ref range: 313-618) elevated but per ID, PCP is unlikely in the presence of bilateral pleural effusions as PCP almost never manifests with pleural effusions. KESHIA with no evidence of infective endocarditis. * ID following. Appreciate their recs. * Await bronchoscopy results including bacterial, fungal and mycobacterial cultures and PCP PCR. #C. diff colitis -Continue Flagyl Cardiovascular: #Suspected CHF 2/2 severe aortic stenosis: [place] to be most likely etiology for the acute hypoxemic respiratory failure at this point, given significant improvement after starting IV Lasix, significant valvular heart disease and the negative infectious work-up so far. KESHIA performed yesterday confirmed severe aortic stenosis and mild mitral stenosis. Remains on IV Lasix with excellent diuresis. * Cardiology following. Appreciate their recs. * Continue to monitor strict I/Os. * IV lasix changed to PO per Dr Mark (after discussing to go for the same dose in PO from IV, conversion factor considered) * Continue to monitor BP closely. * Will most likely need cardiac catheterization and probably aortic valve replacement per cardiology. * IV heparin drip has been changed to Lovenox, as that would decrease her IV fluid intake while still providing the required anticoagulation. Hematology: #Anemia: Anemia most likely chronic. H/H is stable. #CVA 2/2 cardiac emboli: Was taking warfarin, aggrenox prior to admission. Presented with subtherapeutic INR and was started on IV heparin. * Discontinued IV heparin and changed to Lovenox per Cardiology, as we can further reduce her IV intake this way. Metabolic: Replete electrolytes to K > 4 and Mg > 2. Alimentary: Oral food tolerating well. Neurological: AAOx3, grossly intact Skin: No issues. Diet: PO feeding DVT/Prophylaxis: mechanical, pharmacological Code Status: Full Code Problem List: 1. C. difficile diarrhea 2. Acute diastolic CHF (congestive heart failure) 3. Bicuspid aortic valve 4. Mild mitral stenosis 5. Anemia 6. Severe aortic stenosis 7. Mitral stenosis 8. Rheumatic fever with cardiac involvement 9. History of CVA (cerebrovascular accident) Pain Ratin Tomorrow's Labs & Rationales: CBC and ICU bundle (ICU patient) Plan DVT/Prophylaxis: mechanical, pharmacological Code Status: Full Code
[2016-12-05 16:00] VITALS: BP 106/70
--- NOTE | 2016-12-05 18:01 | PN- Cardiology ---
Subjective Subjective: Feels improved. Objective Vital Signs and I&Os Vital Signs Date Time Temp Pulse Resp B/P Pulse O2 O2 Flow FiO2 Ox Delivery Rate 12/05 1701 96 Room Air 12/05 1236 97.3 84 20 110/74 12/05 0800 100 Room Air Room Air 12/05 0800 97.3 74 20 110/74 100 Room Air Room Air 12/05 0740 93 Room Air Room Air 12/05 0631 72 102/71 12/05 0400 95 Room Air Room Air 12/05 0000 97.9 94 18 98/70 93 Room Air Room Air 12/05 0000 93 Room Air Room Air 12/04 2342 101 90/60 12/04 2000 96 Nasal 2.0L Cannula Intake & Output 12/05 1600 12/05 0800 12/05 0000 12/04 1600 12/04 0800 12/04 0000 Intake Total 556 610 913 460 360 Output Total 550 550 550 445 600 Balance 6 60 363 15 -240 Intake, IV 256 310 193 Intake, Oral 300 300 720 460 360 Number 1 0 1 0 Bowel Movements Output, Urine 550 550 550 445 600 Physical Exam: Well-developed, overweight middle-aged female in no acute distress. Neck: no JVD, no bruits. Lungs: occasional rhonchi. Heart: S1, S2 with grade 2-3/6 systolic ejection type murmur. Abdomen: Soft, nontender, positive bowel sounds. Extremities: No edema. Current Medications: Current Medications Sig/Lico Start time Last Medication Dose Route Stop Time Status Admin Albuterol Sulfate 3 ML EVERY 4 HRS/AWAKE 11/24 1200 AC 12/05 INH 1701 Amiodarone HCl/ 360 MG Q6H 12/05 0700 AC 12/05 Dextrose IV 1236 N/A 1 UNIT Amiodarone HCl/ 360 MG Q12H 12/04 1200 DC 12/04 Dextrose IV 2342 N/A 1 UNIT Atorvastatin Calcium 10 MG QPM 12/04 2199 AC 12/04 PO 2129 Bupropion HCl 300 MG 0800 12/05 0800 AC 12/05 PO 0953 Enoxaparin Sodium 90 MG BID 11/29 2199 AC 12/05 SC 0951 Escitalopram Oxalate 10 MG QPM 12/04 220 AC 12/04 PO 2130 Furosemide 20 MG BID 12/03 2199 AC 12/05 IV 0951 Hydroxychloroquine 200 MG BID 12/04 1413 AC 12/05 Sulfate PO 0951 Ipratropium [place] 2.5 ML EVERY 4 HRS/AWAKE 11/24 1200 AC 12/05 INH 1701 Lorazepam 0.5 MG AT BEDTIME 12/04 2199 AC 12/04 PO 12/11 2158 213 Lorazepam 0.5 MG DAILY 12/04 1416 DC PO 12/11 1415 Melatonin 3 MG AT BEDTIME NEED.. 12/04 2345 AC 12/04 PO 2341 Metronidazole 500 MG Q8 12/02 1315 AC 12/05 PO 1430 Morphine Sulfate 1 MG Q6P PRN 12/03 1515 AC 12/04 IV 1942 Nystatin 1 ELYSIA TID 12/01 220 AC 12/05 TOP 1610 Nystatin 5 ML 4 TIMES/DAY 12/01 195 AC 12/05 PO 1429 Ondansetron HCl 4 MG Q6P PRN 12/05 0815 AC 12/05 IV 0812 Pantoprazole Sodium 40 MG DAILY 11/26 1032 AC 12/05 IV 0951 Polyethylene Glycol 17 GM DAILY 11/28 1000 AC 12/01 PO 1006 Prednisone 10 MG DAILY 12/06 1000 AC PO Prednisone 20 MG DAILY 12/04 1100 AC 12/05 PO 12/06 0959 0951 Senna/Docusate Sodium 1 TAB BID 11/28 1000 AC 12/04 PO 2130 Results Last 48 Hrs of Labs/Mics: Laboratory Tests 12/05/16 0450: Anion Gap 11, Estimated GFR > 60, Glucose 111 H, Calcium 9.1, Phosphorus 3.3, Magnesium 2.5 H, Total Bilirubin 0.5, AST 24, ALT 42, Albumin 3.2 L, CBC w Diff MAN DIFF ORDERED, RBC 3.55 L, MCV 91.9, MCH 29.7, RDW 15.6 H, MPV 7.8, Gran % 85.2 H, Lymphocytes % 8.4 L, Monocytes % 4.8, Eosinophils % 1.4, Basophils % 0.2, Absolute Granulocytes 10.7 H, Absolute Lymphocytes 1.1 L, Absolute Monocytes 0.6, Absolute Eosinophils 0.2, Absolute Basophils 0, Platelet Estimate ADEQUATE, Normocytic RBCs VERIFIED, Normochromic RBCs VERIFIED, PUBS MCHC 32.3 L 12/04/16 1740: Troponin I < 0.01 12/04/16 1140: Sodium Cancelled, Potassium Cancelled, Chloride Cancelled, Carbon Dioxide Cancelled, Anion Gap Cancelled, BUN Cancelled, Creatinine Cancelled, Glucose Cancelled, Calcium Cancelled, Phosphorus Cancelled, Magnesium Cancelled, Total Bilirubin Cancelled, AST Cancelled, ALT Cancelled, Albumin Cancelled 12/04/16 1140: Anion Gap 11, Estimated GFR > 60, Glucose 110 H, Calcium 9.3, Phosphorus 3.4, Magnesium 2.5 H, Total Bilirubin 0.6, AST 26, ALT 43, Troponin I < 0.01, Albumin 3.6 12/04/16 0444: Anion Gap 11, Estimated GFR 58 L, Glucose 102 H, Calcium 9.5, Phosphorus 3.9, Magnesium 2.8 H, Total Bilirubin 0.7, AST 26, ALT 45, Albumin 3.5, CBC w Diff NO MAN DIFF REQ, RBC 3.67 L, MCV 92.6, MCH 29.5, RDW 15.7 H, MPV 7.5, Gran % 81.9 H, Lymphocytes % 11.3 L, Monocytes % 5.0, Eosinophils % 1.6, Basophils % 0.2, Absolute Granulocytes 9.8 H, Absolute Lymphocytes 1.4, Absolute Monocytes 0.6, Absolute Eosinophils 0.2, Absolute Basophils 0, PUBS MCHC 31.9 L Recent Imaging Studies: CXR (12/04/2016) Removal of the endotracheal and enteric tubes. Persistent small left pleural effusion with retrocardiac opacity. Assessment/Plan Assessment/Plan Overall improved after presenting with acute hypoxic respiratory failure with bilateral infiltrates on chest x-ray and CT chest complicated by a paroxysm of atrial fibrillation for which IV amiodarone was initiated with conversion back to sinus rhythm. The consensus is that the hypoxic respiratory failure was on the basis of heart failure from her valvular heart disease, based on her improved status following diuretic therapy. At this juncture, we will continue the amiodarone drip and cut back on the drip rate from 1 mg/minute to 0.5 mg/minute tomorrow if she remains in sinus rhythm. A KESHIA was performed yesterday and revealed evidence of a bicuspid aortic valve with severe aortic stenosis and a calculated valve area of approximately 0.9 cm , as well as, mild mitral stenosis, mild mitral regurgitation, etc. and preserved left ventricular systolic function. Recommendations: * Switch from present regimen of IV furosemide to oral furosemide with close follow-up of her inputs/outputs, daily weights, BUN/creatinine, potassium, magnesium, etc. * Continue to replete potassium and magnesium as necessary. * Continue on amiodarone drip as described above for the short-term. * Check baseline free T4, TSH. Note LFTs within normal limits. * Continue anticoagulation with low molecular weight heparin. * Continue to follow-up on recommendations from infectious diseases and pulmonary medicine. Continue telemetry? Yes
[2016-12-06] VITALS: BP 120/76
[2016-12-06 05:46] LABS: ABSOLUTE BASOPHIL COUNT 0 /CUMM (0.0-0.2); ABSOLUTE EOSINOPHIL COUNT 0.1 /CUMM (0.0-0.7); ABSOLUTE GRANULOCYTE CT 7.1 /CUMM (1.4-6.5); ABSOLUTE LYMPH COUNT 1.5 /CUMM (1.2-3.4); ABSOLUTE MONOCYTE COUNT 0.6 /CUMM (0.10-0.60); BASOPHIL % 0.2 % (0.0-2.0); EOSINOPHIL % 1.3 % (0-5); GRANULOCYTE % 76.2 % (42.2-75.2); MEAN CORPUSCULAR HGB CONC 32.5 G/DL (33.0-37.0); MEAN CORPUSCULAR VOLUME 92.2 FL (81.0-99.0); MEAN PLATELET VOLUME 7.8 FL (7.4-10.4); PLATELET COUNT 411 /CUMM (130-400); RBC DISTRIBUTION WIDTH 15.5 % (11.5-14.5); RED BLOOD CELL CT 3.58 /CUMM (4.20-5.40); WHITE BLOOD CELL COUNT 9.3 /CUMM (4.8-10.8)
[2016-12-06 08:00] VITALS: BP 112/72
--- NOTE | 2016-12-06 08:36 | PN- Housestaff ---
Assessment/Plan Assessment: Ms. 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 Associated symptoms include fever to 101, chills, lethargy, nasal congestion, chest congestion, shortness of breath, non- productive cough and decreased oral intake. In the ED: Vital signs showed T 98.9, HR 99, RR 20, BP 93/60 and O2 saturation of 87% on room air. Labs showed leukocytosis to 11.3, normocytic anemia to 11.1/ 33.9, Plt 295, granulocytosis to 89.7, normal BEP, lactic acid 1.5, and normal UA. Blood gas was done and showed pH 7.47, pCO2 28, pO2 64 and HCO3 20. CXR was suggestive of multilobar PNA with small left pleural effusion. Chest CTA showed bilateral airspace disease with air bronchograms mainly affecting the middle lung zones. Associated bilateral pleural effusions. Unlikely ARDS. Patient was admitted to the general medicine floor and the following is the management: 1. Acute hypoxic respiratory failure DDx includes community acquired PNA, heart failure, inflammatory/rheumatological etiology * Patient given ceftriaxone, azithro and vancomycin in the ED * Patient received doxycycline for 2 days, switched to Ceftriaxone and azithromycin * Echocardiogram to monitor for heart failure, will follow results * High dose steroids 100 gm IV x 1 for possible inflammatory component, switched to prednisone 60 mg today * Follow up blood and LRC, rapid flu negative, legionella Ag and strep pneumo Ag (-) * Monitor for fever, leukocytosis likely 2/2 chronic steroid use * Continue to provide supplemental O2 as needed, incentive spirometer, TRC nebs * Continue mucinex * Stopped IVF as patient has worsening pleural effusion * Hold antihypertensives for now * f/u Pulmonary consult, ID consult, Rheumatology consult (Dr. Vahe jamison see the patient tomorrow) * hold off on bronchoscopy per pulmonary * procalcitonin sent out, also aspergillus ag, and TB gold QT test * ordered nasopharyngeal viral swab 2. HTN, Rheumatic heart disease, prior CVA x 2 * Continue warfarin 5 mg PO daily, monitor INR daily * Aggrenox 1 cap PO BID * Lipitor 10 mg PO QPM * cardiology consult * started on IV heparin and IV lasix per cardio recs 3. Mental health * Ativan 0.5 mg PO PRN anxiety * Lexapro 10 mg PO QPM 4. RA, fibromyalgia * Continue plaquenil 200 mg PO BID * Continue lyrica 75 mg PO BID FULL CODE DVTP: Lovenox
--- NOTE | 2016-12-06 09:15 | NUR ---
AMIODARONE GTT RATE DECREASED TO 0.5MG/MIN AT THIS TIME.
--- NOTE | 2016-12-06 09:22 | PN- Infect Dx ---
Subjective Subjective: Afebrile on steroids. She feels well with no complaints. She has had no further diarrhea. Objective Last 24 Hrs of Vital Signs/I&O Vital Signs Date Time Temp Pulse Resp B/P Pulse O2 O2 Flow FiO2 Ox Delivery Rate 12/06 0658 71 111/64 12/06 0136 72 110/82 12/06 0000 98.2 72 20 120/76 95 Room Air 12/05 1932 72 130/96 12/05 1701 96 Room Air 12/05 1600 Room Air 12/05 1600 98.7 84 20 106/70 94 Room Air 12/05 1236 97.3 84 20 110/74 Intake & Output 12/06 1600 12/06 0800 12/06 0000 Intake Total 386.4 430 Output Total 400 250 Balance -13.6 180 Intake, IV 266.4 280 Intake, Oral 120 150 Output, Urine 400 250 Patient 188 lb Weight Physical Exam Other Physical Findings: She appears comfortable in no acute distress Lungs bibasilar crackles Heart regular rhythm with a 2/6 systolic ejection murmur Abdomen soft, mildly tender on palpation, with no guarding or rebound Extremities no cyanosis, clubbing or edema Scott catheter remains in place Results Last 24 Hours of Lab Results: Laboratory Tests 12/06 0520 Chemistry Sodium (137 - 145 mmol/L) 133 L Potassium (3.5 - 5.1 mmol/L) 3.0 L Chloride (98 - 107 mmol/L) 90 L Carbon Dioxide (22 - 30 mmol/L) 36 H Anion Gap (5 - 16) 7 BUN (7 - 17 mg/dL) 25 H Creatinine (0.5 - 1.0 mg/dL) 0.9 Estimated GFR (>60 ml/min) > 60 Glucose (65 - 99 mg/dL) 97 Calcium (8.4 - 10.2 mg/dL) 9.1 Phosphorus (2.5 - 4.5 mg/dL) 3.0 Magnesium (1.6 - 2.3 mg/dL) 2.3 Total Bilirubin (0.2 - 1.3 mg/dL) 0.5 AST (14 - 36 U/L) 22 ALT (9 - 52 U/L) 40 Albumin (3.5 - 5.0 g/dL) 3.1 L Hematology CBC w Diff NO MAN DIFF REQ WBC (4.8 - 10.8 /CUMM) 9.3 RBC (4.20 - 5.40 /CUMM) 3.58 L Hgb (12.0 - 16.0 G/DL) 10.7 L Hct (37 - 47 %) 33.0 L MCV (81.0 - 99.0 FL) 92.2 MCH (27.0 - 31.0 PG) 30.0 RDW (11.5 - 14.5 %) 15.5 H Plt Count (130 - 400 /CUMM) 411 H MPV (7.4 - 10.4 FL) 7.8 Gran % (42.2 - 75.2 %) 76.2 H Lymphocytes % (20.5 - 51.1 %) 15.8 L Monocytes % (1.7 - 9.3 %) 6.5 Eosinophils % (0 - 5 %) 1.3 Basophils % (0.0 - 2.0 %) 0.2 Absolute Granulocytes (1.4 - 6.5 /CUMM) 7.1 H Absolute Lymphocytes (1.2 - 3.4 /CUMM) 1.5 Absolute Monocytes (0.10 - 0.60 /CUMM) 0.6 Absolute Eosinophils (0.0 - 0.7 /CUMM) 0.1 Absolute Basophils (0.0 - 0.2 /CUMM) 0 PUBS MCHC (33.0 - 37.0 G/DL) 32.5 L Last 24 Hours of Michael Results: Urine culture December 04 negative Assessment/Plan Impression: Overall improved with temperatures and white blood cell count remaining normal ( on steroid taper) now Day 4 of Flagyl for C. difficile with diarrhea resolved. Suggestion: 1. Remove Scott catheter 2. Continue po Flagyl
--- NOTE | 2016-12-06 09:43 | PN- Pulmonary ---
Subjective HPI/Critical Care Issues: pt seen and examined doing well amiodarone reduced room air comfortable awaiting tele bed no dyspnea, no cp Objective Current Medications: Current Medications Sig/Lico Start time Last Medication Dose Route Stop Time Status Admin Albuterol Sulfate 3 ML EVERY 4 HRS/AWAKE 11/24 1200 AC 12/05 INH 2003 Amiodarone HCl/ 360 MG Q6H 12/05 0700 AC 12/06 Dextrose IV 0658 N/A 1 UNIT Atorvastatin Calcium 10 MG QPM 12/04 220 AC 12/05 PO 220 Bupropion HCl 300 MG 0800 12/05 0800 AC 12/05 PO 0953 Enoxaparin Sodium 90 MG BID 11/29 220 AC 12/05 SC 220 Escitalopram Oxalate 10 MG QPM 12/04 220 AC 12/05 PO 220 Furosemide 20 MG 7:30 AM, & 4:30 PM 12/06 0730 AC 12/06 PO 0654 Furosemide 20 MG BID 12/03 220 DC 12/05 IV 0951 Hydroxychloroquine 200 MG BID 12/04 1413 AC 12/05 Sulfate PO 220 Ipratropium [place] 2.5 ML EVERY 4 HRS/AWAKE 11/24 1200 AC 12/05 INH 2003 Lorazepam 0.5 MG AT BEDTIME 12/04 2199 AC 12/05 PO 12/11 215 220 Melatonin 3 MG AT BEDTIME NEED.. 12/04 2345 AC 12/04 PO 2341 Metronidazole 500 MG Q8 12/02 1315 AC 12/06 PO 0654 Morphine Sulfate 1 MG Q6P PRN 12/03 1515 AC 12/05 IV 2208 Nystatin 1 ELYSIA TID 12/01 220 PR 12/05 TOP 1610 Nystatin 5 ML 4 TIMES/DAY 12/01 1957 AC 12/05 PO 2206 Ondansetron HCl 4 MG Q6P PRN 12/05 0815 AC 12/06 IV 0529 Pantoprazole Sodium 40 MG DAILY 11/26 1032 AC 12/05 IV 0951 Polyethylene Glycol 17 GM DAILY 11/28 1000 DC 12/01 PO 1006 Potassium Chloride 20 MEQ Q2H 12/06 0845 AC PO 12/06 1446 Prednisone 10 MG DAILY 12/06 1000 AC PO Prednisone 20 MG DAILY 12/04 1100 AC 12/05 PO 12/06 0959 0951 Senna/Docusate Sodium 1 TAB BID 11/28 1000 DC 12/04 PO 2130 Vital Signs & I&O Last 24 Hrs of Vitals and I&O: Vital Signs Date Time Temp Pulse Resp B/P Pulse O2 O2 Flow FiO2 Ox Delivery Rate 12/06 0658 71 111/64 12/06 0136 72 110/82 12/06 0000 98.2 72 20 120/76 95 Room Air 12/05 1932 72 130/96 12/05 1701 96 Room Air 12/05 1600 Room Air 12/05 1600 98.7 84 20 106/70 94 Room Air 12/05 1236 97.3 84 20 110/74 Intake & Output 12/06 1600 12/06 0800 12/06 0000 Intake Total 386.4 430 Output Total 400 250 Balance -13.6 180 Intake, IV 266.4 280 Intake, Oral 120 150 Output, Urine 400 250 Patient 188 lb Weight Exam Other Physical Findings: gen awake and alert heent ncat cvs s1, s2, +murmur lungs diminished bs at bases abd soft bs+ ext without edema Results Last 24 Hrs of Lab Results: Laboratory Tests 12/06/16 0520: Anion Gap 7, Estimated GFR > 60, Glucose 97, Calcium 9.1, Phosphorus 3.0, Magnesium 2.3, Total Bilirubin 0.5, AST 22, ALT 40, Albumin 3.1 L, CBC w Diff NO MAN DIFF REQ, RBC 3.58 L, MCV 92.2, MCH 30.0, RDW 15.5 H, MPV 7.8, Gran % 76.2 H, Lymphocytes % 15.8 L, Monocytes % 6.5, Eosinophils % 1.3, Basophils % 0.2, Absolute Granulocytes 7.1 H, Absolute Lymphocytes 1.5, Absolute Monocytes 0.6, Absolute Eosinophils 0.1, Absolute Basophils 0, PUBS MCHC 32.5 L Impression/Plan Impression/Plan Impression/Plan: Impression 51 year old woman -improved acute hypoxemic respiratory failure and mediastinal lymphadenopathy, improved. - stable leukocytosis, likely secondary to steroids, improving. - Bicuspid aortic valve with aortic stenosis. 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 - Steroid dependent, seronegative rheumatoid arthritis. - Normocytic anemia. - Hypertension. 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 - History of CVA - A.fib converted to sinus rhythm - C.diff on flagyl Plan - a.fib now resolved, in sinus rhythm - f/u cardiology - on amiodarone, therapeutic lovenox - ins/outs, continue lasix - Flagyl for C.Diff - steroid taper as ordered DVT prophylaxis at all times Tele hold
--- NOTE | 2016-12-06 11:10 | PN- Resident CRCU ---
Subjective HPI/CRCU Issues: No acute events overnight. Patient is seen and examined this morning. She continues to feel well and has no complaints. She feels stronger and her incoordination is improving. Diarrhea has resolved. She remains in sinus rhythm. She continues to sat well without shortness of breath on room air. Objective Vital Signs & I&O Last 8 Hrs of Vitals and I&O: Vital Signs Date Time Temp Pulse Resp B/P Pulse O2 O2 Flow FiO2 Ox Delivery Rate 12/06 0800 97.1 74 22 112/72 95 Room Air Room Air 12/06 0658 71 111/64 12/06 0136 72 110/82 12/06 0000 98.2 72 20 120/76 95 Room Air 12/05 1932 72 130/96 12/05 1701 96 Room Air 12/05 1600 Room Air 12/05 1600 98.7 84 20 106/70 94 Room Air 12/05 1236 97.3 84 20 110/74 Exam General Appearance: no apparent distress, alert, awake, comfortable Head: atraumatic, normal appearance Ears, Nose, Throat: moist mucus membranes Neck: supple Respiratory: bibasilar crackles and diminished breath sounds Cardiovascular: regular rate/rhythm, normal S1 and S2, grade 3/6 systolic murmur Gastrointestinal: soft, positive bowel sounds, mild diffuse tenderness to palpation, no guarding or rebound Extremities: no edema Skin: warm/dry Current Medications: Current Medications Sig/Lico Start time Last Medication Dose Route Stop Time Status Admin Albuterol Sulfate 3 ML EVERY 4 HRS/AWAKE 11/24 1200 AC 12/06 INH 1110 Amiodarone HCl/ 360 MG Q6H 12/05 07 AC 12/06 Dextrose IV 0658 N/A 1 UNIT Atorvastatin Calcium 10 MG QPM 12/04 220 AC 12/05 PO 2206 Bupropion HCl 300 MG 0812/05 0800 AC 12/06 PO 0956 Enoxaparin Sodium 90 MG BID 11/29 2199 AC 12/06 SC 0956 Escitalopram Oxalate 10 MG QPM 12/04 2199 AC 12/05 PO 2206 Furosemide 20 MG 7:30 AM, & 4:30 PM 12/06 0730 AC 12/06 PO 0654 Furosemide 20 MG BID 12/03 2200 DC 12/05 IV 0951 Hydroxychloroquine 200 MG BID 12/04 1413 AC 12/06 Sulfate PO 0956 Ipratropium [place] 2.5 ML EVERY 4 HRS/AWAKE 11/24 1200 AC 12/06 INH 1110 Lorazepam 0.5 MG AT BEDTIME 12/04 2199 AC 12/05 PO 12/11 Melatonin 3 MG AT BEDTIME NEED.. 12/04 2345 AC 12/04 PO 2341 Metronidazole 500 MG Q8 12/02 1315 AC 12/06 PO 0654 Morphine Sulfate 1 MG Q6P PRN 12/03 1515 AC 12/05 IV 2208 Nystatin 1 ELYSIA TID 12/01 2200 DC 12/05 TOP 1610 Nystatin 5 ML 4 TIMES/DAY 12/01 1957 AC 12/06 PO 0956 Omeprazole 40 MG DAILY AC 12/06 1124 AC PO Ondansetron HCl 4 MG Q6P PRN 12/05 0815 AC 12/06 IV 0529 Pantoprazole Sodium 40 MG DAILY 11/26 1032 DC 12/06 IV 0956 Polyethylene Glycol 17 GM DAILY 11/28 1000 DC 12/01 PO 1006 Potassium Chloride 20 MEQ Q2H 12/06 0845 AC 12/06 PO 12/06 1446 0957 Prednisone 10 MG DAILY 12/06 1000 AC 12/06 PO 0956 Prednisone 20 MG DAILY 12/04 1100 DC 12/05 PO 12/06 0959 0951 Senna/Docusate Sodium 1 TAB BID 11/28 1000 DC 12/04 PO 2130 Results Results: Laboratory Tests 12/06 0520 Chemistry Sodium (137 - 145 mmol/L) 133 L Potassium (3.5 - 5.1 mmol/L) 3.0 L Chloride (98 - 107 mmol/L) 90 L Carbon Dioxide (22 - 30 mmol/L) 36 H Anion Gap (5 - 16) 7 BUN (7 - 17 mg/dL) 25 H Creatinine (0.5 - 1.0 mg/dL) 0.9 Estimated GFR (>60 ml/min) > 60 Glucose (65 - 99 mg/dL) 97 Calcium (8.4 - 10.2 mg/dL) 9.1 Phosphorus (2.5 - 4.5 mg/dL) 3.0 Magnesium (1.6 - 2.3 mg/dL) 2.3 Total Bilirubin (0.2 - 1.3 mg/dL) 0.5 AST (14 - 36 U/L) 22 ALT (9 - 52 U/L) 40 Albumin (3.5 - 5.0 g/dL) 3.1 L Hematology CBC w Diff NO MAN DIFF REQ WBC (4.8 - 10.8 /CUMM) 9.3 RBC (4.20 - 5.40 /CUMM) 3.58 L Hgb (12.0 - 16.0 G/DL) 10.7 L Hct (37 - 47 %) 33.0 L MCV (81.0 - 99.0 FL) 92.2 MCH (27.0 - 31.0 PG) 30.0 RDW (11.5 - 14.5 %) 15.5 H Plt Count (130 - 400 /CUMM) 411 H MPV (7.4 - 10.4 FL) 7.8 Gran % (42.2 - 75.2 %) 76.2 H Lymphocytes % (20.5 - 51.1 %) 15.8 L Monocytes % (1.7 - 9.3 %) 6.5 Eosinophils % (0 - 5 %) 1.3 Basophils % (0.0 - 2.0 %) 0.2 Absolute Granulocytes (1.4 - 6.5 /CUMM) 7.1 H Absolute Lymphocytes (1.2 - 3.4 /CUMM) 1.5 Absolute Monocytes (0.10 - 0.60 /CUMM) 0.6 Absolute Eosinophils (0.0 - 0.7 /CUMM) 0.1 Absolute Basophils (0.0 - 0.2 /CUMM) 0 PUBS MCHC (33.0 - 37.0 G/DL) 32.5 L Impression/Plan Impression/Problem List Impression: 51 y/o F with PMHx of seronegative rheumatoid arthritis, valvular heart disease and 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 Problem List: 1. C. difficile diarrhea 2. Severe aortic stenosis 3. Acute hypoxemic respiratory failure 4. Rheumatoid aortitis 5. New onset atrial fibrillation 6. Depression 7. (HFpEF) heart failure with preserved ejection fraction 8. Rheumatic fever with cardiac involvement Pain Ratin Tomorrow's Labs & Rationales: CBC to monitor WBC in the setting of C. difficile diarrhea BMP and Mg to monitor lytes and kidney function in the setting of diuresis and hypokalemia Plan Respiratory: #Acute hypoxemic respiratory failure: Respiratory status stable post-extubation. Remains comfortable on room air. * Provide supplemental oxygen as needed to keep SpO2 > 92%. * Prednisone further decreased to 10 mg PO daily. * Protonix IV changed to prilosec 40 mg PO AC. Infectious Diseases: #C. difficile diarrhea: On day 4 of Flagyl with resolution of diarrhea. Remains afebrile. Leukocytosis, 2/2 to steroids, has resolved with taper. * ID following. Appreciate their recs. * Continue Flagyl 500 mg PO TID. * Remove Scott. Cardiovascular: #New-onset atrial fibrillation: Remains in normal sinus rhythm on amiodarone drip. * Cardiology following. Appreciate their recs. * Continue amiodarone drip at reduced rate of 0.5 mg/min. Plan to discontinue tomorrow if she stays in sinus rhythm. * Continue Lovenox 90 mg SQ BID. * Check baseline free T4 and TSH. #CHF 2/2 severe aortic stenosis: Significantly improved with diuresis. * Continue to monitor strict I/Os and daily weights. * Continue Lasix 20 mg PO BID. * Will most likely need cardiac catheterization and probably aortic valve replacement in the future per cardiology. Hematology: #Anemia: H/H stable. * Continue to monitor H/H. #CVA 2/2 cardiac emboli: * Continue Lovenox 90 mg SQ BID. * Continue atorvastatin 10 mg PO QPM. Metabolic: #Hypokalemia: K down to 3 this AM. Mg 2.3. * Administer 20 mEq PO K x 4. * Re-check potassium in the evening. * Continue to monitor lytes and replete to K > 4 and Mg > 2. Alimentary: CHF Diet - Full chopped and thin liquids (to aid self-feeding in the setting of incoordination) Neurological: #Depression/anxiety: * Continue Wellbutrin-XL 300 mg PO QAM, Lexapro 10 mg PO QPM and lorazepam 0.5 mg PO daily. DVT/Prophylaxis: mechanical, pharmacological Code Status: Full Code Other: #Rheumatoid arthritis: Home medications were prednisone 5 mg daily and hydroxychloroquine 400 mg PO BID. * Continue prior to admission hydroxychloroquine.
[2016-12-06 16:00] VITALS: BP 118/70
--- NOTE | 2016-12-06 17:09 | PN- Cardiology ---
Subjective Subjective: No complaints at present, but did admit to an episode of chest "tightness" of moderate (7/10) intensity earlier that lasted approximately 20 minutes before spontaneously subsiding. There was no radiation of the discomfort or any associated symptoms. On monitoring she has been maintaining sinus rhythm on the amiodarone drip at 0.5 mg/m. Objective Vital Signs and I&Os Vital Signs Date Time Temp Pulse Resp B/P Pulse O2 O2 Flow FiO2 Ox Delivery Rate 12/06 1652 97.1 74 20 118/70 12/06 0800 97.1 74 22 112/72 95 Room Air Room Air 12/06 0658 71 111/64 12/06 0136 72 110/82 12/06 0000 98.2 72 20 120/76 95 Room Air 12/05 1932 72 130/96 Intake & Output 12/06 1600 12/06 0800 12/06 0000 12/05 1600 12/05 0800 12/05 0000 Intake Total 386.4 205 436 3877 Output Total 400 454 116 9174 Balance -13.6 180 6 423 Intake, IV 266.4 280 256 503 Intake, Oral 120 143 859 8572 Number 1 0 1 Bowel Movements Output, Urine 400 225 [id number] [id number] Patient 188 lb Weight Physical Exam: Well-developed, overweight middle-aged female in no acute distress Vital signs: See above. Lungs: Few crackles at the bases. Heart: S1, S2 with grade 2/6 systolic murmur. Extremities: No edema. Assessment/Plan Assessment/Plan Overall improved after presenting with acute hypoxic respiratory failure with bilateral infiltrates on chest x-ray and CT chest complicated by a paroxysm of atrial fibrillation for which IV amiodarone was initiated with conversion back to sinus rhythm. The consensus is that the hypoxic respiratory failure was on the basis of heart failure from her valvular heart disease, based on her improved status following diuretic therapy. At this juncture, we will continue the amiodarone drip at 0.5 mg/minute if she remains in sinus rhythm. A KESHIA was performed and revealed evidence of a bicuspid aortic valve with severe aortic stenosis and a calculated valve area of approximately 0.9 cm, as well as , mild mitral stenosis, mild mitral regurgitation, etc. and preserved left ventricular systolic function. Was able to reproduce chest discomfort in her left precordial region by palpation, so suspect that the chest discomfort she experienced earlier with musculoskeletal. She was advised to notify the nursing staff if she has any more chest discomfort. Recommendations: * Switch from present regimen of IV furosemide to oral furosemide with close follow-up of her inputs/outputs, daily weights, BUN/creatinine, potassium, magnesium, etc. * Continue to replete potassium and magnesium as necessary. Note potassium today 3.0 mEq per liter. * Continue on amiodarone drip as described above for the short-term. * Note LFTs within normal limits. Note TSH okay, but free T4 elevated and will need follow-up. * Continue anticoagulation with low molecular weight heparin. * Continue to follow-up on recommendations from infectious diseases and pulmonary medicine. Continue telemetry? Yes
[2016-12-06 23:00] VITALS: BP 110/74
[2016-12-07 05:01] LABS: ABSOLUTE BASOPHIL COUNT 0 /CUMM (0.0-0.2); ABSOLUTE EOSINOPHIL COUNT 0.1 /CUMM (0.0-0.7); ABSOLUTE GRANULOCYTE CT 7.6 /CUMM (1.4-6.5); ABSOLUTE LYMPH COUNT 1.3 /CUMM (1.2-3.4); ABSOLUTE MONOCYTE COUNT 0.6 /CUMM (0.10-0.60); BASOPHIL % 0.4 % (0.0-2.0); EOSINOPHIL % 1.1 % (0-5); GRANULOCYTE % 79.1 % (42.2-75.2); MEAN CORPUSCULAR HGB 30.3 PG (27.0-31.0); MEAN CORPUSCULAR HGB CONC 32.9 G/DL (33.0-37.0); MEAN CORPUSCULAR VOLUME 92.1 FL (81.0-99.0); PLATELET COUNT 356 /CUMM (130-400); RBC DISTRIBUTION WIDTH 15.5 % (11.5-14.5); RED BLOOD CELL CT 3.58 /CUMM (4.20-5.40); WHITE BLOOD CELL COUNT 9.6 /CUMM (4.8-10.8)
--- NOTE | 2016-12-07 07:19 | PN- Housestaff ---
Subjective Follow-up For: New-onset atrial fibrillation CHF 2/2 severe aortic stenosis C. difficile diarrhea Chest pain Subjective: No acute events overnight. She remains in sinus rhythm on IV amiodarone drip. Patient was seen and examined this morning. She continues to feel better. Her strength and incoordination are improving with physical therapy. Chest pain has resolved. She complains of abdominal fullness and continues to have loose stools. She remains comfortable on room air. Review of Systems Constitutional: Reports: weakness. Cardiovascular: Denies: chest pain. Respiratory: Denies: cough, short of breath, sputum production. Gastrointestinal: Reports: bloating, diarrhea, nausea, changes in stool. Denies: abdominal pain. Genitourinary: Reports: no symptoms. Musculoskeletal: Reports: back pain (left-sided, chronic). Objective Last 24 Hrs of Vital Signs/I&O Vital Signs Date Time Temp Pulse Resp B/P Pulse O2 O2 Flow FiO2 Ox Delivery Rate 12/07 0445 99.6 75 16 110/70 12/07 0000 96 Room Air 12/06 2300 97.2 76 18 110/74 96 Room Air 12/06 1841 95 Room Air Room Air 12/06 1652 97.1 74 20 118/70 12/06 1600 95 Room Air Room Air 12/06 1600 97.1 73 20 118/70 95 Room Air Room Air Intake & Output 12/07 1600 12/07 0800 12/07 0000 Intake Total 553.36 700 Output Total 480 680 Balance 73.36 20 Intake, IV 133.36 60 Intake, Oral 420 640 Number 1 1 Bowel Movements Output, Urine 480 680 Physical Exam General Appearance: Alert, Oriented X3, No Acute Distress HEENT: Mucous Membr. moist/pink Neck: Supple, No JVD Cardiovascular: Regular Rate, Normal S1, Normal S2, Grade 3/6 Systolic Murmur Lungs: Few Bibasilar Crackles Abdomen: Soft, No Tenderness, Positive Bowel Sounds Extremities: No Clubbing, No Cyanosis, No Edema Current Medications: Current Medications Sig/Lico Start time Last Medication Dose Route Stop Time Status Admin Albuterol Sulfate 3 ML BID 12/06 2200 AC INH Albuterol Sulfate 3 ML EVERY 4 HRS/AWAKE 11/24 1200 DC 12/06 INH 1834 Amiodarone HCl 360 MG Q12H 12/07 0500 AC 12/07 Dextrose/Water 200 ML IV 0445 Amiodarone HCl/ 360 MG Q12H 12/06 1630 DC 12/06 Dextrose IV 1652 N/A 1 UNIT Amiodarone HCl/ 360 MG Q6H 12/05 0700 DC 12/06 Dextrose IV 0658 N/A 1 UNIT Atorvastatin Calcium 10 MG QPM 12/04 2200 AC 12/06 PO 2158 Bupropion HCl 300 MG 0800 12/05 0800 AC 12/07 PO 0750 Enoxaparin Sodium 90 MG BID 11/29 2199 AC 12/06 SC 2159 Escitalopram Oxalate 10 MG QPM 12/04 220 AC 12/06 PO 2158 Furosemide 20 MG 7:30 AM, & 4:30 PM 12/06 0730 AC 12/07 PO 0637 Hydroxychloroquine 200 MG BID 12/04 1413 AC 12/07 Sulfate PO 0048 Ipratropium [place] 2.5 ML BID 12/06 2199 AC INH Ipratropium [place] 2.5 ML EVERY 4 HRS/AWAKE 11/24 1200 DC 12/06 INH 1834 Lorazepam 0.5 MG AT BEDTIME 12/04 2199 AC 12/06 PO 12/11 2159 2158 Melatonin 3 MG AT BEDTIME NEED.. 12/04 2345 AC 12/04 PO 2341 Metronidazole 500 MG Q8 12/02 1315 AC 12/07 PO 0520 Morphine Sulfate 1 MG Q6P PRN 12/03 1515 AC 12/05 IV 2208 Nystatin 5 ML 4 TIMES/DAY 12/01 1957 AC 12/06 PO 2157 Omeprazole 40 MG DAILY AC 12/07 0700 AC 12/07 PO 0634 Omeprazole 40 MG DAILY AC 12/06 1124 DC PO Ondansetron HCl 4 MG Q6P PRN 12/05 0815 AC 12/06 IV 0529 Pantoprazole Sodium 40 MG DAILY 11/26 1032 DC 12/06 IV 0956 Polyethylene Glycol 17 GM DAILY 11/28 1000 DC 12/01 PO 1006 Potassium Chloride 60 MEQ ONCE ONE 12/07 0615 DC 12/07 PO 12/07 0616 0634 Potassium Chloride 20 MEQ Q2H 12/06 0845 DC 12/06 PO 12/06 1446 1418 Prednisone 10 MG DAILY 12/06 1000 AC 12/06 PO 0956 Prednisone 20 MG DAILY 12/04 1100 DC 12/05 PO 12/06 0959 0951 Senna/Docusate Sodium 1 TAB BID 11/28 1000 DC 12/04 PO 2130 Last 24 Hrs of Lab/Michael Results Last 24 Hrs of Labs/Mics: Laboratory Tests 12/07/16 0441: Anion Gap 8, Estimated GFR > 60, BUN/Creatinine Ratio 21.1, Magnesium 2.1, CBC w Diff NO MAN DIFF REQ, RBC 3.58 L, MCV 92.1, MCH 30.3, RDW 15.5 H, MPV 8.0, Gran % 79.1 H, Lymphocytes % 13.6 L, Monocytes % 5.8, Eosinophils % 1.1, Basophils % 0.4, Absolute Granulocytes 7.6 H, Absolute Lymphocytes 1.3, Absolute Monocytes 0.6, Absolute Eosinophils 0.1, Absolute Basophils 0, PUBS MCHC 32.9 L 12/06/16 1830: Troponin I < 0.01 Urine Cx (12/06/16): Approximately 80,000 colonies per ml of yeast Orders Radiology Findings: RENAL US: 1. No sonographic evidence of cystitis, renal abscess or urinary tract obstruction. 2. The patient's known calculus at the upper pole of the left kidney is not well seen on this ultrasound exam. 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 #New-onset atrial fibrillation: Remains in normal sinus rhythm on amiodarone drip, currently running at 0.5 mg/min. * Cardiology following. Appreciate their recs. * Discontinue amiodarone drip. * Start amiodarone 400 mg PO BID x 1 week, followed by 200 mg PO daily. * Continue Lovenox 90 mg SQ BID. #CHF 2/2 severe aortic stenosis: Significantly improved with diuresis. * Continue to monitor strict I/Os and daily weights. * Continue to monitor lytes and kidney function. * Continue Lasix 20 mg PO BID. * Will most likely need cardiac catheterization and probably aortic valve replacement in the future per cardiology. #C. difficile diarrhea: Remains afebrile and without leukocytosis on day 5 of Flagyl, however with persistent diarrhea and nausea suggesting poor response to therapy. * ID following. Appreciate their recs. * Discontinue Flagyl. * Start vancomycin 125 mg PO Q6H. #Acute hypoxemic respiratory failure: Resolved. Remains comfortable on room air. * Continue steroid taper. Decrease prednisone further to 5 mg PO daily tomorrow. #Candiduria: UCx growing approximately 80,000 colonies/ml of yeast. Likely represents asymptomatic infection secondary to Scott catheter in the absence of urinary symptoms. * Scott catheter removed. #Left flank pain: History of chronic left flank pain and nephrolithiasis. CT Abdomen/Pelvis in August 2015 with nonobstructing calculus in upper pole of kidney. Renal US was ordered today which was negative for urinary tract obstruction. Previous kidney stone could not be visualized on the ultrasound. * NTD. Diet: CHF Diet - Chopped and Thin Liquids DVT PPx: Lovenox and ALPs GI PPx: Prilosec 40 mg PO AC CODE: FULL Problem List: 1. C. difficile diarrhea 2. New onset atrial fibrillation 3. Severe aortic stenosis 4. Hypokalemia 5. Anemia 6. CHF (congestive heart failure) 7. Rheumatic fever with cardiac involvement 8. Chronic left flank pain 9. Acute hypoxemic respiratory failure Pain Ratin Pain Location: N/A Pain Goal: Remain pain free Pain Plan: Tylenol 650 mg PO Q6H PRN for mild pain (scale 1-3) Tomorrow's Labs & Rationales: BMP and Mg to monitor lytes and kidney function in the setting of diuresis
[2016-12-07 08:00] VITALS: BP 124/81
--- NOTE | 2016-12-07 09:13 | PN- Pulmonary ---
Subjective HPI/Critical Care Issues: The patient is awake and alert. She is now on room air. She remains on amiodarone drip for rapid atrial fibrillation. Her heart rate is now well controlled. She admits to feeling weak and unsteady on her feet. She otherwise denies increased shortness of breath, cough, chest congestion or sputum production. She has no chest pain. There were no overnight events reported. Objective Current Medications: Current Medications Sig/Lico Start time Last Medication Dose Route Stop Time Status Admin Acetaminophen 650 MG Q6P PRN 12/07 0830 AC PO Albuterol Sulfate 3 ML BID 12/06 220 AC INH Albuterol Sulfate 3 ML EVERY 4 HRS/AWAKE 11/24 1200 DC 12/06 INH 1834 Amiodarone HCl 360 MG Q12H 12/07 0500 AC 12/07 Dextrose/Water 200 ML IV 0445 Amiodarone HCl/ 360 MG Q12H 12/06 1630 DC 12/06 Dextrose IV 1652 N/A 1 UNIT Amiodarone HCl/ 360 MG Q6H 12/05 0700 DC 12/06 Dextrose IV 0658 N/A 1 UNIT Atorvastatin Calcium 10 MG QPM 12/04 2200 AC 12/06 PO 2158 Bupropion HCl 300 MG 0800 12/05 0800 AC 12/07 PO 0750 Enoxaparin Sodium 90 MG BID 11/29 220 AC 12/06 SC 2159 Escitalopram Oxalate 10 MG QPM 12/04 220 AC 12/06 PO 2158 Furosemide 20 MG 7:30 AM, & 4:30 PM 12/06 0730 AC 12/07 PO 0637 Hydroxychloroquine 200 MG BID 12/04 1413 AC 12/07 Sulfate PO 0048 Ipratropium [place] 2.5 ML BID 12/06 220 AC INH Ipratropium [place] 2.5 ML EVERY 4 HRS/AWAKE 11/24 1200 DC 12/06 INH 1834 Lorazepam 0.5 MG AT BEDTIME 12/04 2199 AC 12/06 PO 12/11 215 2158 Melatonin 3 MG AT BEDTIME NEED.. 12/04 2345 AC 12/04 PO 2341 Metronidazole 500 MG Q8 12/02 1315 AC 12/07 PO 0520 Morphine Sulfate 1 MG Q6P PRN 12/03 1515 DC 12/05 IV 2208 Nystatin 5 ML 4 TIMES/DAY 12/01 1957 AC 12/06 PO 2157 Omeprazole 40 MG DAILY AC 12/07 0700 AC 12/07 PO 0634 Omeprazole 40 MG DAILY AC 12/06 1124 DC PO Ondansetron HCl 4 MG Q6P PRN 12/05 0815 AC 12/06 IV 0529 Pantoprazole Sodium 40 MG DAILY 11/26 1032 DC 12/06 IV 0956 Polyethylene Glycol 17 GM DAILY 11/28 1000 DC 12/01 PO 1006 Potassium Chloride 60 MEQ ONCE ONE 12/07 0615 DC 12/07 PO 12/07 0616 0634 Potassium Chloride 20 MEQ Q2H 12/06 0845 DC 12/06 PO 12/06 1446 1418 Prednisone 10 MG DAILY 12/06 1000 AC 12/06 PO 0956 Prednisone 20 MG DAILY 12/04 1100 DC 12/05 PO 12/06 0959 0951 Senna/Docusate Sodium 1 TAB BID 11/28 1000 DC 12/04 PO 2130 Vital Signs & I&O Last 24 Hrs of Vitals and I&O: Vital Signs Date Time Temp Pulse Resp B/P Pulse O2 O2 Flow FiO2 Ox Delivery Rate 12/07 0825 Ventilator 100% 12/07 0445 99.6 75 16 110/70 12/07 0000 96 Room Air 12/06 2300 97.2 76 18 110/74 96 Room Air 12/06 1841 95 Room Air Room Air 12/06 1652 97.1 74 20 118/70 12/06 1600 95 Room Air Room Air 12/06 1600 97.1 73 20 118/70 95 Room Air Room Air Intake & Output 12/07 1600 12/07 0800 12/07 0000 Intake Total 553.36 700 Output Total 480 680 Balance 73.36 20 Intake, IV 133.36 60 Intake, Oral 420 640 Number 1 1 Bowel Movements Output, Urine 480 680 Physical Exam General Appearance: comfortable, awake and alert Ears, Nose, Throat: moist mucus membranes Respiratory: Decreased breath sounds but clear to auscultation Cardiovascular: regular rate/rhythm, normal S1 and S2, grade 3/6 systolic murmur Gastrointestinal: soft, non-tender, positive bowel sounds Extremities: no edema, warm and dry Results Last 24 Hrs of Lab Results: Laboratory Tests 12/07/16 0441: Anion Gap 8, Estimated GFR > 60, BUN/Creatinine Ratio 21.1, Magnesium 2.1, CBC w Diff NO MAN DIFF REQ, RBC 3.58 L, MCV 92.1, MCH 30.3, RDW 15.5 H, MPV 8.0, Gran % 79.1 H, Lymphocytes % 13.6 L, Monocytes % 5.8, Eosinophils % 1.1, Basophils % 0.4, Absolute Granulocytes 7.6 H, Absolute Lymphocytes 1.3, Absolute Monocytes 0.6, Absolute Eosinophils 0.1, Absolute Basophils 0, PUBS MCHC 32.9 L 12/06/16 1830: Troponin I < 0.01 12/06/16 1800: Potassium Cancelled Impression/Plan Impression/Plan Impression/Plan: 1. Acute hypoxemic respiratory failure and mediastinal lymphadenopathy. The patient will require a follow up CT of the chest in 4 weeks. 2. Af with RVR, resolved, now in NSR on amiodarone. 3. Bicuspid aortic valve with aortic stenosis. 4. 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 5. Steroid dependent, seronegative rheumatoid arthritis. 6. Normocytic anemia. 7. History of hypertension. 8. History of bicuspid aortic valve with aortic stenosis. 9. 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 10. History of prior stroke. 11. C. diff, diarrhea improved. Recommendations: * Continue Lasix 20 mg daily. * Continue to monitor culture data. * Complete prednisone taper. * Monitor off sedation. * Continue therapeutic Lovenox. * Continue Flagyl as per ID. * Continue DVT/GI prophylaxis. * PT consult. * Continue all supportive care.
--- NOTE | 2016-12-07 11:12 | NUR ---
PT OOB TO BSC; WEAK. PT CONSULT IN. PT HAD NAUSEA, DIARRHEA, ATE MINIMAL BREAKFAST, ZOFRAN GIVEN X 1 WITH GOOD EFFECT. PT GIVEN AM DOSE OF LASIX, DIURESSED >300. SUH DCD AND PT HAS VOIDED SINCE. RT CONSULTED FOR REASSEMENT AND TO START PT ON TX AND TEACH IS. US TECH AT BEDSIDE TO OBTAIN US OF KIDNEYS.
--- NOTE | 2016-12-07 11:52 | PN- Infect Dx ---
Subjective Subjective: She complains of nausea. She has no abdominal pain but does report recurrent diarrhea. She denies dysuria but does report left-sided back pain, which she states is a chronic problem. Objective Last 24 Hrs of Vital Signs/I&O Vital Signs Date Time Temp Pulse Resp B/P Pulse O2 O2 Flow FiO2 Ox Delivery Rate 12/07 1115 96 Room Air Room Air 12/07 0825 Ventilator 100% 12/07 0445 99.6 75 16 110/70 12/07 0000 96 Room Air 12/06 2300 97.2 76 18 110/74 96 Room Air 12/06 1841 95 Room Air Room Air 12/06 1652 97.1 74 20 118/70 12/06 1600 95 Room Air Room Air 12/06 1600 97.1 73 20 118/70 95 Room Air Room Air Intake & Output 12/07 1600 12/07 0800 12/07 0000 Intake Total 553.36 700 Output Total 480 680 Balance 73.36 20 Intake, IV 133.36 60 Intake, Oral 420 640 Number 1 1 Bowel Movements Output, Urine 480 680 Physical Exam Other Physical Findings: She appears comfortable in no acute distress Lungs minimal bibasilar crackles Heart regular rhythm with a 2/6 systolic ejection murmur Abdomen is soft, nontender with positive bowel sounds Back mild left CVA tenderness Extremities no cyanosis, clubbing or edema Results Last 24 Hours of Lab Results: Laboratory Tests 12/07 12/06 12/06 0441 1830 1800 Chemistry Sodium (137 - 145 mmol/L) 135 L Potassium (3.5 - 5.1 mmol/L) 3.4 L 4.2 Cancelled Chloride (98 - 107 mmol/L) 94 L Carbon Dioxide (22 - 30 mmol/L) 33 H Anion Gap (5 - 16) 8 BUN (7 - 17 mg/dL) 19 H Creatinine (0.5 - 1.0 mg/dL) 0.9 Estimated GFR (>60 ml/min) > 60 BUN/Creatinine Ratio (7 - 25 %) 21.1 Magnesium (1.6 - 2.3 mg/dL) 2.1 Troponin I (< 0.11 ng/ml) < 0.01 TSH (0.270 - 4.200 uIU/mL) Pending Free T4 (0.64 - 1.79 ng/dL) Pending Hematology CBC w Diff NO MAN DIFF REQ WBC (4.8 - 10.8 /CUMM) 9.6 RBC (4.20 - 5.40 /CUMM) 3.58 L Hgb (12.0 - 16.0 G/DL) 10.8 L Hct (37 - 47 %) 33.0 L MCV (81.0 - 99.0 FL) 92.1 MCH (27.0 - 31.0 PG) 30.3 RDW (11.5 - 14.5 %) 15.5 H Plt Count (130 - 400 /CUMM) 356 MPV (7.4 - 10.4 FL) 8.0 Gran % (42.2 - 75.2 %) 79.1 H Lymphocytes % (20.5 - 51.1 %) 13.6 L Monocytes % (1.7 - 9.3 %) 5.8 Eosinophils % (0 - 5 %) 1.1 Basophils % (0.0 - 2.0 %) 0.4 Absolute Granulocytes (1.4 - 6.5 /CUMM) 7.6 H Absolute Lymphocytes (1.2 - 3.4 /CUMM) 1.3 Absolute Monocytes (0.10 - 0.60 /CUMM) 0.6 Absolute Eosinophils (0.0 - 0.7 /CUMM) 0.1 Absolute Basophils (0.0 - 0.2 /CUMM) 0 PUBS MCHC (33.0 - 37.0 G/DL) 32.9 L Last 24 Hours of Michael Results: Urine culture December 04 approximately 80,000 colonies of yeast Assessment/Plan Impression: Stable with temperatures and white blood cell count remaining normal (on steroid taper) now Day 5 of Flagyl for C. difficile, with recurrent diarrhea and nausea, possibly suggesting a poor response to the Flagyl. The candiduria is likely secondary to her recent Scott catheter, but she does not appear to have any urinary symptoms and, with normal temperatures and white blood cell count, feel that this likely represents asymptomatic infection. Her left flank tenderness is of unclear significance, but, with her history of nephrolithiasis, would evaluate further. Suggestion: 1. Renal ultrasound 2. If diarrhea recurs discontinue Flagyl and begin Vancomycin 125 mg po every 6 hours
--- NOTE | 2016-12-07 12:07 | ULTRASOUND REPORT ---
EXAMINATION: US RETROPERITONEAL COMPLETE (RENAL) CLINICAL INFORMATION: Fever and growing yeast from urine. COMPARISON: Chest CT from 11/23/2016. TECHNIQUE: Real-time imaging of the kidneys and bladder. FINDINGS: RIGHT KIDNEY: 10.4 x 4.4 x 4.7 cm (SAG x AP x TRV). The kidney has normal cortical thickness and echotexture. No evidence of nephrolithiasis, hydronephrosis, renal mass or abscess. LEFT KIDNEY: 10.4 x 4.3 x 4.9 cm (SAG x AP x TRV). The kidney has normal cortical thickness and echotexture. The patient's known 0.4 cm calyceal stone of the upper pole is suboptimally visualized on this ultrasound exam. No evidence of hydronephrosis, renal mass or abscess.. BLADDER: Urinary bladder has normal wall thickness and is underdistended (estimated volume of 36 mL. No bladder debris or bladder calculi. Ureteral jets were not visualized during the time of imaging. IMPRESSION: 1. No sonographic evidence of cystitis, renal abscess or urinary tract obstruction. 2. The patient's known calculus at the upper pole of the left kidney is not well seen on this ultrasound exam.
[2016-12-07 16:00] VITALS: BP 118/80
--- NOTE | 2016-12-07 16:38 | PN- Cardiology ---
Subjective Subjective: Patient reports that she is feeling mostly well. No recent chest pain. Shortness of breath is stable. She remains in sinus rhythm on amiodarone drip. No diaphoresis. No palpitations. Objective Vital Signs and I&Os Vital Signs Date Time Temp Pulse Resp B/P Pulse O2 O2 Flow FiO2 Ox Delivery Rate 12/07 1547 Ventilator 100% 12/07 1115 96 Room Air Room Air 12/07 0825 Ventilator 100% 12/07 0800 95 Room Air 12/07 0800 97.7 80 20 124/81 95 Room Air Room Air 12/07 0445 99.6 75 16 110/70 12/07 0000 96 Room Air 12/06 2300 97.2 76 18 110/74 96 Room Air 12/06 1841 95 Room Air Room Air 12/06 1652 97.1 74 20 118/70 Intake & Output 12/07 1600 12/07 0800 12/07 0000 12/06 1600 12/06 0800 12/06 0000 Intake Total 553.36 700 400 386.4 430 Output Total 480 680 900 400 250 Balance 73.36 20 -500 -13.6 180 Intake, IV 133.36 60 266.4 280 Intake, Oral 420 640 400 120 150 Number 1 1 2 Bowel Movements Output, Urine 480 680 900 400 250 Patient 188 lb Weight Physical Exam: Gen: The patient is in no acute distress HEENT: Normal nose, ears, and oropharynx. Pupils equal bilaterally. Conjunctiva normal. Neck: Supple with no JVD, no masses, and no thyromegaly Lungs: Scattered rhonchi with normal respiratory effort Heart: RRR, S1, S2, 2/6 systolic murmur. No peripheral edema, 2+ pulses in the lower extremities bilaterally Abdomen: Soft, nontender, no masses. No hepatomegaly. No splenomegaly Extremities: No clubbing or cyanosis. Normal muscle strength in the upper and lower extremities Skin: Normal skin turgor with no skin ulcers or lesions noted. Neuro: Cranial nerves intact. Sensation intact Psych: Alert and oriented 3 with appropriate affect Current Medications: Current Medications Sig/Lico Start time Last Medication Dose Route Stop Time Status Admin Acetaminophen 650 MG Q6P PRN 12/07 0830 AC PO Albuterol Sulfate 3 ML BID 12/06 2200 AC 12/07 INH 1108 Albuterol Sulfate 3 ML EVERY 4 HRS/AWAKE 11/24 1200 DC 12/06 INH 1834 Amiodarone HCl 400 MG BID 12/07 1541 AC PO Amiodarone HCl 360 MG Q12H 12/07 0500 AC 12/07 Dextrose/Water 200 ML IV 12/07 1659 0445 Amiodarone HCl/ 360 MG Q12H 12/07 1700 AC Dextrose IV 12/07 1700 N/A 1 UNIT Amiodarone HCl/ 360 MG Q12H 12/06 1630 DC 12/06 Dextrose IV 1652 N/A 1 UNIT Atorvastatin Calcium 10 MG QPM 12/04 2200 AC 12/06 PO 2158 Bupropion HCl 300 MG 0800 12/05 0800 AC 12/07 PO 0750 Enoxaparin Sodium 90 MG BID 11/29 220 12/07 SC 0906 Escitalopram Oxalate 10 MG QPM 12/04 220 AC 12/06 PO 2158 Furosemide 20 MG 7:30 AM, & 4:30 PM 12/06 0730 12/07 PO 0637 Hydroxychloroquine 200 MG BID 12/04 1413 AC 12/07 Sulfate PO 0907 Ipratropium [place] 2.5 ML BID 12/06 2200 AC 12/07 INH 1108 Ipratropium [place] 2.5 ML EVERY 4 HRS/AWAKE 11/24 1200 DC 12/06 INH 1834 Lorazepam 0.5 MG AT BEDTIME 12/04 2199 12/06 PO 12/11 2159 2158 Melatonin 3 MG AT BEDTIME NEED.. 12/04 2345 AC 12/04 PO 2341 Metronidazole 500 MG Q8 12/02 1315 [place] 12/07 PO 0520 Morphine Sulfate 1 MG Q6P PRN 12/03 1515 DC 12/05 IV 2208 Nystatin 5 ML 4 TIMES/DAY 12/01 1957 AC 12/07 PO 0905 Omeprazole 40 MG DAILY AC 12/07 0700 AC 12/07 PO 0634 Ondansetron HCl 4 MG Q6P PRN 12/05 0815 AC 12/07 IV 0858 Potassium Chloride 20 MEQ DAILY 12/08 1000 UNVr PO Potassium Chloride 60 MEQ ONCE ONE 12/07 1615 AC PO 12/07 1616 Potassium Chloride 60 MEQ ONCE ONE 12/07 0615 DC 12/07 PO 12/07 0616 0634 Prednisone 5 MG DAILY 12/08 1000 AC PO Prednisone 10 MG DAILY 12/06 1000 DC 12/07 PO 0907 Vancomycin HCl 125 MG Q6 12/07 1435 AC PO Results Last 48 Hrs of Labs/Mics: Laboratory Tests 12/07/16 0441: Anion Gap 8, Estimated GFR > 60, BUN/Creatinine Ratio 21.1, Magnesium 2.1, TSH 1.870, Free T4 2.36 H, CBC w Diff NO MAN DIFF REQ, RBC 3.58 L, MCV 92.1, MCH 30.3, RDW 15.5 H, MPV 8.0, Gran % 79.1 H, Lymphocytes % 13.6 L, Monocytes % 5.8, Eosinophils % 1.1, Basophils % 0.4, Absolute Granulocytes 7.6 H, Absolute Lymphocytes 1.3, Absolute Monocytes 0.6, Absolute Eosinophils 0.1, Absolute Basophils 0, PUBS MCHC 32.9 L 12/06/16 1830: Troponin I < 0.01 12/06/16 1800: Potassium Cancelled 12/06/16 0520: Anion Gap 7, Estimated GFR > 60, Glucose 97, Calcium 9.1, Phosphorus 3.0, Magnesium 2.3, Total Bilirubin 0.5, AST 22, ALT 40, Albumin 3.1 L, TSH 2.380, Free T4 2.52 H, CBC w Diff NO MAN DIFF REQ, RBC 3.58 L, MCV 92.2, MCH 30.0, RDW 15.5 H, MPV 7.8, Gran % 76.2 H, Lymphocytes % 15.8 L, Monocytes % 6.5, Eosinophils % 1.3, Basophils % 0.2, Absolute Granulocytes 7.1 H, Absolute Lymphocytes 1.5, Absolute Monocytes 0.6, Absolute Eosinophils 0.1, Absolute Basophils 0, PUBS MCHC 32.5 L Recent Imaging Studies: Renal ultrasound: 1. No sonographic evidence of cystitis, renal abscess or urinary tract obstruction. 2. The patient's known calculus at the upper pole of the left kidney is not well seen on this ultrasound exam. Assessment/Plan Assessment/Plan Assessment: 1. Bicuspid aortic valve with aortic stenosis 2. Respiratory failure 3. Acute diastolic heart failure, Improved on Lasix 4. Acute renal insufficiency secondary to diuretic therapy, improving 5. Hypertension, controlled 6. Paroxysmal atrial fibrillation, in sinus on amiodarone drip Plan: * Discontinue amiodarone drip. * Start p.o. amiodarone 400 milligrams p.o. b.i.d. x1 week followed by 200 milligrams daily. * Lasix 20 milligrams p.o. b.i.d.. * Check basic metabolic profile in the morning. Continue telemetry? Yes
[2016-12-08] VITALS: BP 130/80
--- NOTE | 2016-12-08 00:24 | NUR ---
0000 PATIENT RECEIVED ALERT AND ORIENTED X3, SKIN PINK, WARM AND DRY, PATIENT DENIES ANY C/O DISCOMFORT AT THIS TIME, O2 SAT ON RA 96%- BREATHE SOUNDS CLEAR BILATERALLY, ABDOMEN SOFT, +BS, NO C/O NAUSEA AT THIS TIME, FACILITIES ADMINISTRATOR SINUS WITHOUT ECTOPY, HEART RATE 80'S/MIN, RIGHT ARM REDDENED, TENDER AT OLD IV SITE, PATIENT USING ICE PACK INTERMITTENTLY- ARM ELEVATED ON PILLOW, PATIENT SETTLED FOR SLEEP, CALL LIGHT WITHIN REACH
[2016-12-08 04:00] VITALS: BP 110/80
--- NOTE | 2016-12-08 05:25 | NUR ---
PATIENT AWAKENED FOR AM LABS-DENIES ANY C/O PAIN OR DISCOMFORT, DENIES NEED TO VOID LAST VOIDED RIGHT BEFORE SHE FEEL ASLEEP THIS PM, BUT DOES STATE AGAIN FEELING NAUSEA- MEDICATED WITH ZOFRAN, RE-SETTLED FOR SLEEP
--- NOTE | 2016-12-08 06:53 | NUR ---
PATIENT HAS SLEPT WELL EXCEPT FOR C/O NAUSEA FOR WHICH ZOFRAN WAS EFFECTIVE, AWAITING AM MD ROUNDS
--- NOTE | 2016-12-08 07:16 | PN- Housestaff ---
Subjective Follow-up For: New-onset atrial fibrillation CHF 2/2 severe aortic stenosis C. difficile diarrhea Subjective: No acute events overnight. Patient remains in sinus rhythm on PO amiodarone. She feels much improved although not back to baseline in terms of strength and coordination. She has been ambulating with physical therapy. She continues to have nausea but denies abdominal pain. Diarrhea has improved with no bowel movements since last night. Review of Systems Constitutional: Reports: weakness. EENTM: Reports: no symptoms. Cardiovascular: Denies: chest pain. Respiratory: Denies: short of breath. Gastrointestinal: Reports: nausea. Denies: abdominal pain, diarrhea, vomiting. Objective Last 24 Hrs of Vital Signs/I&O Vital Signs Date Time Temp Pulse Resp B/P Pulse O2 O2 Flow FiO2 Ox Delivery Rate 12/08 0800 96.1 96 18 110/80 96 Room Air 12/08 0400 80 18 110/80 96 Room Air 12/08 0000 96 Room Air 12/08 0000 97.4 84 20 130/80 96 Room Air 12/07 2243 82 118/78 12/07 1719 85 118/70 12/07 1600 953 Room Air 12/07 1600 97.3 84 20 118/80 96 Room Air 12/07 1547 Ventilator 100% 12/07 1115 96 Room Air Room Air Intake & Output 12/08 1600 12/08 0800 12/08 0000 Intake Total 100 370 Output Total 150 100 300 Balance -150 0 70 Intake, IV 10 Intake, Oral 100 360 Number 1 Bowel Movements Output, Urine 150 100 300 Patient 88.167 kg Weight Physical Exam General Appearance: Alert, Oriented X3, No Acute Distress Skin: Warm and Dry HEENT: Mucous Membr. moist/pink Neck: Supple, No JVD Cardiovascular: Regular Rate, Normal S1, Normal S2, Grade 3/6 Systolic Murmur Lungs: Clear to Auscultation Abdomen: Soft, No Tenderness, Positive Bowel Sounds Extremities: No Clubbing, No Cyanosis, No Edema Current Medications: Current Medications Sig/Lico Start time Last Medication Dose Route Stop Time Status Admin Acetaminophen 650 MG Q6P PRN 12/07 0830 AC PO Albuterol Sulfate 3 ML BID 12/06 2200 AC 12/07 INH 1108 Amiodarone HCl 400 MG BID 12/07 1541 AC 12/07 PO 2243 Amiodarone HCl 360 MG Q12H 12/07 0500 DC 12/07 Dextrose/Water 200 ML IV 12/07 1659 0445 Amiodarone HCl/ 360 MG Q12H 12/07 1700 DC Dextrose IV 12/07 1700 N/A 1 UNIT Atorvastatin Calcium 10 MG QPM 12/04 2200 12/07 PO 2130 Bupropion HCl 300 MG 0800 12/05 0800 12/07 PO 0750 Enoxaparin Sodium 90 MG BID 11/29 220 12/07 SC 2131 Escitalopram Oxalate 10 MG QPM 12/04 2200 12/07 PO 2130 Furosemide 20 MG 7:30 AM, & 4:30 PM 12/06 0730 12/08 PO 0641 Hydroxychloroquine 200 MG BID 12/04 1413 12/07 Sulfate PO 2130 Ipratropium [place] 2.5 ML BID 12/06 2199 12/07 INH 1108 Lorazepam 0.5 MG AT BEDTIME 12/04 2199 12/07 PO 12/11 215 2131 Melatonin 3 MG AT BEDTIME NEED.. 12/04 2345 12/04 PO 2341 Metronidazole 500 MG Q8 12/02 1315 MO 12/07 PO 0520 Nystatin 5 ML 4 TIMES/DAY 12/01 1957 12/07 PO 2130 Omeprazole 40 MG DAILY AC 12/07 0700 12/08 PO 0641 Ondansetron HCl 4 MG Q6P PRN 12/05 0815 12/08 IV 0518 Potassium Chloride 20 MEQ DAILY 12/08 1000 AC PO Potassium Chloride 60 MEQ ONCE ONE 12/07 1615 MO 12/07 PO 12/07 1616 1654 Prednisone 5 MG DAILY 12/08 1000 AC PO Prednisone 10 MG DAILY 12/06 1000 MO 12/07 PO 0907 Vancomycin HCl 125 MG Q6 12/07 1435 12/08 PO 0641 Last 24 Hrs of Lab/Michael Results Last 24 Hrs of Labs/Mics: Laboratory Tests 12/08/16 0515: Anion Gap 8, Estimated GFR 58 L, BUN/Creatinine Ratio 18.0, Magnesium 2.1 Assessment/Plan Assessment: 51 y/o F with PMHx of seronegative rheumatoid arthritis, valvular heart disease and 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 #New-onset atrial fibrillation: Switched from IV amiodarone drip to PO amiodarone yesterday. Remains in sinus rhythm. * Cardiology following. Appreciate their recs. * Continue amiodarone 400 mg PO BID x 1 week (12/07/16-12/13/16), followed by 200 mg PO daily. * Continue Lovenox 90 mg SQ BID. #CHF 2/2 severe aortic stenosis: Significantly improved with diuresis. * Continue to monitor strict I/Os and daily weights. * Continue to monitor lytes and kidney function. * Continue Lasix 20 mg PO BID. * Will most likely need cardiac catheterization and probably aortic valve replacement in the future per cardiology. * Continue physical therapy. #C. difficile diarrhea: Switched to PO vancomycin from Flagyl yesterday for persistent nausea diarrhea, with subsequent improvement of diarrhea. * ID following. Appreciate their recs. * Continue vancomycin 125 mg PO Q6H for a 10-14 day course. #Rheumatoid arthritis: * Continue prednisone 5 mg PO daily. Diet: CHF Diet - Chopped and Thin Liquids DVT PPx: Lovenox and ALPs GI PPx: Prilosec 40 mg PO AC CODE: FULL Problem List: 1. New onset atrial fibrillation 2. C. difficile diarrhea 3. CHF (congestive heart failure) 4. Severe aortic stenosis 5. Candiduria 6. Rheumatic fever with cardiac involvement 7. Rheumatoid arthritis Pain Ratin Pain Location: N/A Pain Goal: Remain pain free Pain Plan: Tylenol 650 mg PO Q6H PRN for mild pain (scale 1-3) Tomorrow's Labs & Rationales: CBC to monitor WBC in the setting of C. difficile diarrhea BMP and Mg to monitor lytes and kidney function in the setting of diuresis
[2016-12-08 08:00] VITALS: BP 110/80
--- NOTE | 2016-12-08 09:18 | PN- Pulmonary ---
Subjective HPI/Critical Care Issues: The patient is awake and alert. She continues to improve slowly. She was able to ambulate yesterday with physical therapy. She does have some recurrent diarrhea however the overall trend has significantly improved. She is afebrile. She had a renal ultrasound yesterday that was overall unremarkable. There were no overnight events reported. Objective Current Medications: Current Medications Sig/Lico Start time Last Medication Dose Route Stop Time Status Admin Acetaminophen 650 MG Q6P PRN 12/07 0830 AC PO Albuterol Sulfate 3 ML BID 12/06 2200 AC 12/07 INH 1108 Amiodarone HCl 400 MG BID 12/07 1541 AC 12/07 PO 2243 Amiodarone HCl 360 MG Q12H 12/07 0500 DC 12/07 Dextrose/Water 200 ML IV 12/07 1659 0445 Amiodarone HCl/ 360 MG Q12H 12/07 1700 DC Dextrose IV 12/07 1700 N/A 1 UNIT Atorvastatin Calcium 10 MG QPM 12/04 2200 AC 12/07 PO 2130 Bupropion HCl 300 MG 0800 12/05 0800 AC 12/07 PO 0750 Enoxaparin Sodium 90 MG BID 11/29 2200 AC 12/07 SC 2131 Escitalopram Oxalate 10 MG QPM 12/04 2200 AC 12/07 PO 2130 Furosemide 20 MG 7:30 AM, & 4:30 PM 12/06 0730 AC 12/08 PO 0641 Hydroxychloroquine 200 MG BID 12/04 1413 AC 12/07 Sulfate PO 2130 Ipratropium [place] 2.5 ML BID 12/06 2200 AC 12/07 INH 1108 Lorazepam 0.5 MG AT BEDTIME 12/04 2200 AC 12/07 PO 12/11 2159 2131 Melatonin 3 MG AT BEDTIME NEED.. 12/04 2345 AC 12/04 PO 2341 Metronidazole 500 MG Q8 12/02 1315 DC 12/07 PO 0520 Nystatin 5 ML 4 TIMES/DAY 12/01 1957 AC 12/07 PO 2130 Omeprazole 40 MG DAILY AC 12/07 0700 AC 12/08 PO 0641 Ondansetron HCl 4 MG Q6P PRN 12/05 0815 AC 12/08 IV 0518 Potassium Chloride 20 MEQ DAILY 12/08 1000 AC PO Potassium Chloride 60 MEQ ONCE ONE 12/07 1615 DC 12/07 PO 12/07 1616 1654 Prednisone 5 MG DAILY 12/08 1000 AC PO Prednisone 10 MG DAILY 12/06 1000 DC 12/07 PO 0907 Vancomycin HCl 125 MG Q6 12/07 1435 AC 12/08 PO 0641 Vital Signs & I&O Last 24 Hrs of Vitals and I&O: Vital Signs Date Time Temp Pulse Resp B/P Pulse O2 O2 Flow FiO2 Ox Delivery Rate 12/08 0800 96.1 96 18 110/80 96 Room Air 12/08 0400 80 18 110/80 96 Room Air 12/08 0000 96 Room Air 12/08 0000 97.4 84 20 130/80 96 Room Air 12/07 2243 82 118/78 12/07 1719 85 118/70 12/07 1600 953 Room Air 12/07 1600 97.3 84 20 118/80 96 Room Air 12/07 1547 Ventilator 100% 12/07 1115 96 Room Air Room Air Intake & Output 12/08 1600 12/08 0800 12/08 0000 Intake Total 100 370 Output Total 150 100 300 Balance -150 0 70 Intake, IV 10 Intake, Oral 100 360 Number 1 Bowel Movements Output, Urine 150 100 300 Patient 194 lb Weight Physical Exam General Appearance: comfortable, awake and alert Ears, Nose, Throat: moist mucus membranes Respiratory: Decreased breath sounds but clear to auscultation Cardiovascular: regular rate/rhythm, normal S1 and S2, grade 3/6 systolic murmur Gastrointestinal: soft, non-tender, positive bowel sounds Extremities: no edema, warm and dry Results Last 24 Hrs of Lab Results: Laboratory Tests 12/08/16 0515: Anion Gap 8, Estimated GFR 58 L, BUN/Creatinine Ratio 18.0, Magnesium 2.1 Diagnostic Data US Findings: 1. No sonographic evidence of cystitis, renal abscess or urinary tract obstruction. 2. The patient's known calculus at the upper pole of the left kidney is not well seen on this ultrasound exam. Impression/Plan Impression/Plan Impression/Plan: 1. Acute hypoxemic respiratory failure and mediastinal lymphadenopathy. The patient will require a follow up CT of the chest in 4 weeks. 2. AF with RVR, resolved, now in NSR on amiodarone. 3. Bicuspid aortic valve with aortic stenosis. 4. 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 5. Steroid dependent, seronegative rheumatoid arthritis, on Plaquenil. 6. Normocytic anemia. 7. History of hypertension. 8. History of bicuspid aortic valve with aortic stenosis. 9. 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 10. History of prior stroke. 11. C. diff, diarrhea improved. Recommendations: * Continue Lasix 20 mg daily. * Continue to monitor culture data. * Patient changed to oral vancomycin for ongoing C. difficile colitis/diarrhea. * Prednisone 5 mg daily to continue (home dose). * Continue therapeutic Lovenox. * Continue DVT/GI prophylaxis. * PT to continue, increase activity. * Continue oral amiodarone per cardiology. * Continue all supportive care.
--- NOTE | 2016-12-08 11:07 | PN- Infect Dx ---
Subjective Subjective: Afebrile. She feels well with no further nausea. She did have one loose bowel movement last night. She denies any urinary symptoms or back pain. Objective Last 24 Hrs of Vital Signs/I&O Vital Signs Date Time Temp Pulse Resp B/P Pulse O2 O2 Flow FiO2 Ox Delivery Rate 12/08 1024 98 Room Air Room Air 12/08 0800 96.1 96 18 110/80 96 Room Air 12/08 0400 80 18 110/80 96 Room Air 12/08 0000 96 Room Air 12/08 0000 97.4 84 20 130/80 96 Room Air 12/07 2243 82 118/78 12/07 1719 85 118/70 12/07 1600 953 Room Air 12/07 1600 97.3 84 20 118/80 96 Room Air 12/07 1547 Ventilator 100% 12/07 1115 96 Room Air Room Air Intake & Output 12/08 1600 12/08 0800 12/08 0000 Intake Total 100 370 Output Total 150 100 300 Balance -150 0 70 Intake, IV 10 Intake, Oral 100 360 Number 1 Bowel Movements Output, Urine 150 100 300 Patient 194 lb Weight Physical Exam Other Physical Findings: She appears comfortable in no acute distress Lungs are clear Heart regular rhythm with 2/6 systolic ejection murmur Abdomen is soft, nontender with positive bowel sounds Back no CVA tenderness Extremity no cyanosis, clubbing or edema Results Last 24 Hours of Lab Results: Laboratory Tests 12/08 0515 Chemistry Sodium (137 - 145 mmol/L) 135 L Potassium (3.5 - 5.1 mmol/L) 4.1 Chloride (98 - 107 mmol/L) 99 Carbon Dioxide (22 - 30 mmol/L) 28 Anion Gap (5 - 16) 8 BUN (7 - 17 mg/dL) 18 H Creatinine (0.5 - 1.0 mg/dL) 1.0 Estimated GFR (>60 ml/min) 58 L BUN/Creatinine Ratio (7 - 25 %) 18.0 Magnesium (1.6 - 2.3 mg/dL) 2.1 Last 24 Hours of Michael Results: No recent cultures Recent Imaging Studies: Renal ultrasound December 07 negative Assessment/Plan Impression: Doing well with temperatures and white blood cell count remaining normal on tapering steroids and now on Vancomycin for C. difficile, changed from Flagyl yesterday because of recurrent nausea and diarrhea, suggesting the possibility that she was not responding to the Flagyl. The candiduria is likely secondary to her recent Scott catheter, but she does not have any urinary symptoms and, with normal temperatures and white blood cell count, feel that this most likely represents asymptomatic infection. Suggestion: 1. Continue Vancomycin to plan on a 10-14 day course
--- NOTE | 2016-12-08 14:43 | NUR ---
Transferred to Room 171. Patient alert and oriented x3. No complaints of pain. at bedside took patient belongings to new room. Patient on 1North monitor, NSR 80's. [employer] Compliance [employer]er Dr. Mtz #[phone] notified of transfer.
--- NOTE | 2016-12-08 15:08 | Discharge Summary ---
Visit Information Visit Dates Admission Date: 11/23/16 Discharge Date: 12/09/16 Hospital Course Course Attending Physician: Antonella MOREL MD Primary Care Physician: CASSI CHU APRN Consulting Request: 1 Consulting Specialty: Pulmonary Disease Consulting Physician: Miguel Tadeo MD Reason for Consult: Hypoxic respiratory failure Consulting Request: 2 Consulting Specialty: Cardiology Consulting Physician: Ananth Christianson MD Reason for Consult: Possible congestive heart failure Consulting Request: 3 Consulting Specialty: Infectious Disease Consulting Physician: Cindy Guzman MD Reason for Consult: Abx advice Consulting Request: 4 Consulting Specialty: Rheumatology Consulting Physician: Ananth Cotter Reason for Consult: Evaluate current illness with respect to previous rheumatologic diagnoses Hospital Course: Ms. Gallardo is a 51 y/o F with PMHx of seronegative rheumatoid arthritis maintained on steroids, bicuspid aortic valve, mitral valve stenosis and CVA who presented to the ED on 11/23/16 with fever, chills, shortness of breath, non-productive cough x 1 week. On initial presentation, patient was afebrile. She was hypoxic on room air and required 2L NC. Labs were remarkable for leukocytosis with WBC of 11.[address] Chest showed bilateral airspace disease and bilateral pleural effusions. Patient was admitted for further evaluation and management of acute hypoxemic respiratory failure. Below are the issues that were addressed during current admission: #Acute hypoxemic respiratory failure: Etiology was initially unclear, prompting an extensive multidisciplinary work-up to explore multiple etiologies including heart failure secondary to valvular disease, pneumonia given her mildly immunocompromised state on low dose prednisone and rheumatoid lung disease, with help from cardiology, pulmonology, infectious diseases and rheumatology specialists. Rheumatology strongly felt that there is no evidence that a connective tissue disorder is contributing to her current illness. Infectious diseases felt that current presentation could represent multilobar pneumonia and patient was started on doxycycline and ceftriaxone as well as atovaquone for PCP prophylaxis given her immunocompromised state according to their recommendations. On day 4 of admission, patient was transferred to the ICU for respiratory distress and was subsequently intubated and started on mechanical ventilation. Bronchoscopy was performed. Bronchoscopy results came back negative including bronchoalveolar bacterial and fungal cultures, AFB smear and PCP PCR as well as cytology with no evidence for malignancy. Ceftriaxone and doxycycline were discontinued in the setting of negative bronchoscopy cultures as it was felt that the week of antibiotics that patient had already received would be sufficient to treat community acquired pneumonia. Although original plan was to extubate patient following bronchoscopy, she could not be extubated given her high FiO2% requirements. Her respiratory status improved only after starting IV Lasix drip. It was felt that the acute hypoxemic respiratory failure was secondary to acute diastolic heart failure in the setting of severe aortic stenosis given negative bronchoscopy cultures, KESHIA showing severe aortic stenosis and drastic improvement with IV Lasix drip. Patient remained intubated and on mechanical ventilation for a total of eight days until being extubated. Patient was comfortable on room air following extubation and her respiratory status remained stable until discharge. * Patient will follow up with career development facilitator Dr. Morel as outpatient, with plans for a follow up CT Chest in 4 weeks. #Acute diastolic heart failure: KESHIA was performed to see whether patient had developed aortic given her bicuspid aortic valve which showed severe aortic stenosis. It was felt that her current presentation was secondary to heart failure in the setting of severe aortic stenosis. Patient was subsequently started on IV Lasix drip with improvement of her respiratory status and transitioned * Patient was instructed to follow up with v belt mold assembler and curer Dr. Esteves within one week of discharge. * Patient will continue Lasix but at reduced dose of 20 mg PO every other day at discharge. #New onset paroxsymal atrial fibrillation: Patient had a transient episode of atrial fibrillation with rapid ventricular response which resolved shortly after being placed on IV amiodarone drip. Patient was later switched to PO amiodarone and remained in sinus rhythm. * Patient will continue amiodarone but at reduced dose of 200 mg BID at discharge, with plans to decrease further to 200 mg daily in 10 days. * Continue Lovenox 90 mg SQ BID. #C. difficile diarrhea: Patient developed diarrhea later on during admission. Stool C. difficile came back positive. She was initially started on PO Flagyl but later switched to PO vancomycin in the setting of persistent diarrhea and nausea. * Continue vancomycin 125 mg PO Q6H for a total of 10 days. 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 Warfarin was held in anticipation for bronchoscopy and patient was started on IV heparin drip. IV heparin was continued following bronchoscopy but was later switched to Lovenox 90 mg (1 mg/kg) SQ BID to reduce the volume of IV fluids that patient was receiving to help maintain negative fluid balance. She was later transitioned to warfarin and received one dose on the day of discharge. Aggrenox was held after intubation as patient was kept NPO. * Patient will resume prior to admission Aggrenox 25 mg-200 mg PO BID. * Patient will continue taking Lovenox 90 mg SQ BID for seven more days following discharge while being bridged to warfarin. * Patient will resume taking warfarin on discharge. She will have her INR checked two days after discharge (12/11/2016) so that the dose can be adjusted accordingly. #HTN: Prior to admission antihypertensive medications were initially discontinued including lisinopril, nifedipine and metoprolol were held in the setting of hypotension. * Patient will resume taking metoprolol 25 mg PO daily on discharge. * Lisinopril 2 mg PO daily and nifedipine 30 mg PO daily were stopped on discharge. Patient will follow up with v belt mold assembler and curer who will resume these medications if necessary. #DAO: Patient's creatinine trended up to a maxium of 1.2 after starting IV lasix. Most likely etiology is pre-renal in the setting of aggressive diuresis. * Lisinopril was discontinued on discharge. Patient will follow up with v belt mold assembler and curer who will resume medication if necessary. Allergies: Coded Allergies: Sulfa (Sulfonamide Antibiotics) (N/V 01/06/16) Significant Procedures: Bronchoscopy (11/26/16) Disposition Summary Disposition Principal Diagnosis: Acute hypoxemic respiratory failure Additional Diagnosis: Acute diastolic heart failure Severe aortic stenosis New onset paroxysmal atrial fibrillation Acute kidney injury C. difficile diarrhea Discharge Disposition: home health services Discharge Instructions General Discharge Information Code Status: Full Code Patient's Diet: CHF Diet Patient's Activity: As tolerated with assistance Follow-Up Instructions/Appts: Please follow up with your primary care physician Cassi Chu APRN and v belt mold assembler and curer Dr. Esteves within one week of discharge. Please follow up with career development facilitator Dr. Morel and professional bass fisherman within two weeks of discharge. Please take all medications as prescribed. Medications at Discharge Discharge Medications: Stop taking the following medications: Lisinopril (Lisinopril) 20 MG TABLET ORAL Every Morning Nifedipine (Nifedipine ER) 30 MG TABLET.ER ORAL Every Morning Qty = 30 Continue taking these medications: Dipyridamole W/ Aspirin (Aggrenox 25 MG-200 MG Capsule) 25 MG-200 MG CPMP.12HR 1 Capsule ORAL TWICE DAILY Comments: not taken Metoprolol Succinate (Metoprolol Succinate) 25 MG TAB 1 Tablet ORAL Every Morning Qty = 90 Comments: not taken Atorvastatin Calcium (Atorvastatin Calcium) 10 MG TABLET 1 Tablet ORAL Every night Qty = 30 Comments: Last Taken:12/08/16 Time:9pm Prednisone (Prednisone) 5 MG TABLET 1 Tablet ORAL Every Morning Qty = 60 Comments: Last Taken:12/09/16 Time:10am Hydroxychloroquine Sulfate (Hydroxychloroquine Sulfate) 200 MG TABLET 1 Tablet ORAL TWICE DAILY Qty = 60 Comments: Last Taken:12/09/16 Time:10am Warfarin Sodium (Warfarin Sodium) 5 MG TABLET 1 Tablet ORAL WEDNESDAY, WEDNESDAY AND WEDNESDAY Qty = 90 Comments: Last Taken:12/09/16 Time:3pm Warfarin Sodium (Coumadin) 2.5 MG TABLET 1 Tablet ORAL As Directed Pregabalin (Lyrica) 75 MG CAPSULE 1 Capsule ORAL TWICE DAILY Qty = 60 Comments: PER PT Bupropion HCl (Bupropion XL) 300 MG TAB.ER.24H 1 Tablet ORAL Every Morning Qty = 30 Comments: Last Taken:12/09/16 Time:10am Ibuprofen/Famotidine (Duexis 800-26.6 MG Tablet) 800 MG-26.6 MG TABLET 1 Tablet ORAL THREE TIMES DAILY as needed for RA Comments: not taken Escitalopram Oxalate (Lexapro) 10 MG TABLET 1 Tablet ORAL Every night Comments: Last Taken:12/09/16 Time:10am Lorazepam (Lorazepam) 0.5 MG TABLET 1 Tablet ORAL DAILY as needed for ANXIETY Qty = 30 Comments: Last Taken:12/08/16 Time:9pm Start taking the following new medications: Vancomycin HCl (Vancomycin HCl) 900 MCG/MG (NOT LESS THAN, LONG-TERM) POWDER 125 Milligram ORAL EVERY SIX HOURS Qty = 32 No Refills Furosemide (Furosemide) 20 MG TABLET 20 Milligram ORAL EVERY 48 HOURS (Every 2 days) Qty = 30 No Refills Instructions: please take every other day Enoxaparin Sodium (Lovenox) 100 MG/ML SYRINGE 90 Milligram Inject into fatty tissue TWICE DAILY Qty = 14 No Refills Amiodarone HCl (Amiodarone HCl) 200 MG TABLET 1 Tablet ORAL TWICE DAILY Qty = 20 No Refills Comments: Last Taken:12/09/16 Time:10am Copies To: Antonella MOREL MD; CASSI CHU APRN; JUNIOR CROOKS,ANANTH Echavarria; Jamia ESTEVES MD; BUD CROOKS,CYNDI Elias
--- NOTE | 2016-12-08 16:13 | PN- Cardiology ---
Subjective Subjective: The patient reports that she is feeling better. Diarrhea has improved. She remains in sinus rhythm on p.o. amiodarone. No chest pain. Shortness of breath improved. Objective Vital Signs and I&Os Vital Signs Date Time Temp Pulse Resp B/P Pulse O2 O2 Flow FiO2 Ox Delivery Rate 12/08 1024 98 Room Air Room Air 12/08 0800 96.1 96 18 110/80 96 Room Air 12/08 0400 80 18 110/80 96 Room Air 12/08 0000 96 Room Air 12/08 0000 97.4 84 20 130/80 96 Room Air 12/07 2243 82 118/78 12/07 1719 85 118/70 Intake & Output 12/08 1600 12/08 0800 12/08 0000 12/07 1600 12/07 0700 12/07 0000 Intake Total 680 100 370 373 553.36 700 Output Total 450 100 300 350 480 680 Balance 230 0 70 23 73.36 20 Intake, IV 10 133 133.36 60 Intake, Oral 680 100 360 240 420 640 Number 2 1 2 1 1 Bowel Movements Output, Urine 450 100 300 350 480 680 Patient 194 lb Weight Physical Exam: Gen: The patient is in no acute distress HEENT: Normal nose, ears, and oropharynx. Pupils equal bilaterally. Conjunctiva normal. Neck: Supple with no JVD, no masses, and no thyromegaly Lungs: Scattered rhonchi with normal respiratory effort Heart: RRR, S1, S2, 2/6 systolic murmur. No peripheral edema, 2+ pulses in the lower extremities bilaterally Abdomen: Soft, nontender, no masses. No hepatomegaly. No splenomegaly Extremities: No clubbing or cyanosis. Normal muscle strength in the upper and lower extremities Skin: Normal skin turgor with no skin ulcers or lesions noted. Neuro: Cranial nerves intact. Sensation intact Psych: Alert and oriented 3 with appropriate affect Current Medications: Current Medications Sig/Lico Start time Last Medication Dose Route Stop Time Status Admin Acetaminophen 650 MG Q6P PRN 12/07 0830 AC PO Albuterol Sulfate 3 ML BID 12/06 2200 AC 12/08 INH 1018 Amiodarone HCl 400 MG BID 12/07 1541 AC 12/08 PO 1048 Amiodarone HCl 360 MG Q12H 12/07 0500 DC 12/07 Dextrose/Water 200 ML IV 12/07 1659 0445 Amiodarone HCl/ 360 MG Q12H 12/07 1700 DC Dextrose IV 12/07 1700 N/A 1 UNIT Atorvastatin Calcium 10 MG QPM 12/04 220 AC 12/07 PO 2130 Bupropion HCl 300 MG 0800 12/05 0800 AC 12/08 PO 1048 Enoxaparin Sodium 90 MG BID 11/29 220 AC 12/08 SC 1048 Escitalopram Oxalate 10 MG QPM 12/04 220 AC 12/07 PO 2130 Furosemide 20 MG 7:30 AM, & 4:30 PM 12/06 0730 AC 12/08 PO 0641 Hydroxychloroquine 200 MG BID 12/04 1413 AC 12/08 Sulfate PO 1048 Ipratropium [place] 2.5 ML BID 12/06 2199 AC 12/08 INH 1018 Lorazepam 0.5 MG AT BEDTIME 12/04 2199 AC 12/07 PO 12/11 Melatonin 3 MG AT BEDTIME NEED.. 12/04 2345 AC 12/04 PO 2341 Nystatin 5 ML 4 TIMES/DAY 12/01 1957 DC 12/08 PO 1050 Omeprazole 40 MG DAILY AC 12/07 0700 AC 12/08 PO 0641 Ondansetron HCl 4 MG Q6P PRN 12/05 0815 AC 12/08 IV 0518 Potassium Chloride 20 MEQ DAILY 12/08 1000 AC 12/08 PO 1048 Potassium Chloride 60 MEQ ONCE ONE 12/07 1615 DC 12/07 PO 12/07 1616 1654 Prednisone 5 MG DAILY 12/08 1000 AC 12/08 PO 1048 Vancomycin HCl 125 MG Q6 12/07 1435 AC 12/08 PO 1231 Results Last 48 Hrs of Labs/Mics: Laboratory Tests 12/08/16 0515: Anion Gap 8, Estimated GFR 58 L, BUN/Creatinine Ratio 18.0, Magnesium 2.1 12/07/16 0441: Anion Gap 8, Estimated GFR > 60, BUN/Creatinine Ratio 21.1, Magnesium 2.1, TSH 1.870, Free T4 2.36 H, CBC w Diff NO MAN DIFF REQ, RBC 3.58 L, MCV 92.1, MCH 30.3, RDW 15.5 H, MPV 8.0, Gran % 79.1 H, Lymphocytes % 13.6 L, Monocytes % 5.8, Eosinophils % 1.1, Basophils % 0.4, Absolute Granulocytes 7.6 H, Absolute Lymphocytes 1.3, Absolute Monocytes 0.6, Absolute Eosinophils 0.1, Absolute Basophils 0, PUBS MCHC 32.9 L 12/06/16 1830: Troponin I < 0.01 12/06/16 1800: Potassium Cancelled Assessment/Plan Assessment/Plan Assessment: 1. Bicuspid aortic valve with aortic stenosis 2. Respiratory failure 3. Acute diastolic heart failure, Improved on Lasix 4. Acute renal insufficiency secondary to diuretic therapy, resolved 5. Hypertension, controlled 6. Paroxysmal atrial fibrillation, in sinus on po amiodarone Plan: * Continue p.o. amiodarone. * Continue p.o. Lasix. * Monitor electrolytes. Continue telemetry? Yes
[2016-12-08 16:41] VITALS: BP 122/72
[2016-12-08 23:27] VITALS: BP 116/76
[2016-12-09 08:00] VITALS: BP 126/90
--- NOTE | 2016-12-09 08:33 | PN- Pulmonary ---
See Addendum Subjective HPI/Critical Care Issues: The patient is awake and alert. She is feeling markedly improved. There were no overnight events reported. She denies having any diarrhea. She has no shortness of breath. She is in relating better. She offers no new complaints today. Objective Current Medications: Current Medications Sig/Lico Start time Last Medication Dose Route Stop Time Status Admin Acetaminophen 650 MG Q6P PRN 12/07 0830 AC PO Albuterol Sulfate 3 ML BID 12/06 220 AC 12/09 INH 0821 Amiodarone HCl 400 MG BID 12/07 1541 AC 12/08 PO 2050 Atorvastatin Calcium 10 MG QPM 12/04 220 AC 12/08 PO 2050 Bupropion HCl 300 MG 0812/05 0800 AC 12/08 PO 1048 Enoxaparin Sodium 90 MG BID 11/29 220 AC 12/08 SC 205 Escitalopram Oxalate 10 MG QPM 12/04 220 AC 12/08 PO 205 Furosemide 20 MG 7:30 AM, & 4:30 PM 12/06 0730 AC 12/09 PO 0643 Hydroxychloroquine 200 MG BID 12/04 1413 AC 12/08 Sulfate PO 205 Ipratropium [place] 2.5 ML BID 12/06 220 AC 12/09 INH 0821 Lorazepam 0.5 MG AT BEDTIME 12/04 2199 AC 12/08 PO 12/11 Melatonin 3 MG AT BEDTIME NEED.. 12/04 2345 AC 12/04 PO 2341 Nystatin 5 ML 4 TIMES/DAY 12/01 1957 DC 12/08 PO 1050 Omeprazole 40 MG DAILY AC 12/07 0700 AC 12/09 PO 0643 Ondansetron HCl 4 MG Q6P PRN 12/05 0815 AC 12/08 IV 0518 Potassium Chloride 20 MEQ DAILY 12/08 1000 AC 12/08 PO 1048 Prednisone 5 MG DAILY 12/08 1000 AC 12/08 PO 1048 Vancomycin HCl 125 MG Q6 12/07 1435 AC 12/09 PO 0643 Vital Signs & I&O Last 24 Hrs of Vitals and I&O: Vital Signs Date Time Temp Pulse Resp B/P Pulse O2 O2 Flow FiO2 Ox Delivery Rate 12/09 0823 95 Room Air 12/09 0800 97.0 96 18 126/90 96 Room Air 12/08 2327 98.7 88 18 116/76 98 Room Air 12/08 2050 109 128/90 12/08 1907 97 Room Air Room Air 12/08 1641 98.8 80 18 122/72 96 Room Air 12/08 1600 96 Room Air 12/08 1024 98 Room Air Room Air Intake & Output 12/09 1600 12/09 0800 12/09 0000 Intake Total 100 640 Output Total Balance 100 640 Intake, Oral 100 640 Number 0 Bowel Movements Patient 182 lb Weight Physical Exam General Appearance: comfortable, awake and alert Ears, Nose, Throat: moist mucus membranes Respiratory: Decreased breath sounds but clear to auscultation Cardiovascular: regular rate/rhythm, normal S1 and S2, grade 3/6 systolic murmur Gastrointestinal: soft, non-tender, positive bowel sounds Extremities: no edema, warm and dry Impression/Plan Impression/Plan Impression/Plan: 1. Stable respiratory status. The patient will require a repeat CT chest in 4 weeks. 2. AF with RVR, resolved, now in NSR on amiodarone. 3. Bicuspid aortic valve with aortic stenosis. 4. 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 5. Steroid dependent, seronegative rheumatoid arthritis, on Plaquenil. 6. Normocytic anemia. 7. History of hypertension. 8. History of bicuspid aortic valve with aortic stenosis. 9. 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 10. History of prior stroke. 11. C. diff, diarrhea improved, on oral vanco. Recommendations: * IST and acapella to continue. * Complete course of oral vancomycin as per ID. * Prednisone 5 mg daily to continue (home dose). * Continue therapeutic Lovenox. * Continue DVT/GI prophylaxis. * PT to continue, increase activity. * Continue oral amiodarone per cardiology. * I will order a follow-up CT scan of the chest in 4 weeks. * Continue all supportive care.
[2016-12-09 09:12] LABS: ABSOLUTE BASOPHIL COUNT 0 /CUMM (0.0-0.2); ABSOLUTE EOSINOPHIL COUNT 0.1 /CUMM (0.0-0.7); ABSOLUTE GRANULOCYTE CT 6.3 /CUMM (1.4-6.5); ABSOLUTE MONOCYTE COUNT 0.6 /CUMM (0.10-0.60); BASOPHIL % 0 % (0.0-2.0); EOSINOPHIL % 0.7 % (0-5); GRANULOCYTE % 79.7 % (42.2-75.2); HEMATOCRIT 35.5 % (37-47); MEAN CORPUSCULAR HGB 29.7 PG (27.0-31.0); MEAN CORPUSCULAR HGB CONC 32.1 G/DL (33.0-37.0); MEAN CORPUSCULAR VOLUME 92.3 FL (81.0-99.0); MEAN PLATELET VOLUME 7.6 FL (7.4-10.4); PLATELET COUNT 181 /CUMM (130-400); RBC DISTRIBUTION WIDTH 16.3 % (11.5-14.5); RED BLOOD CELL CT 3.85 /CUMM (4.20-5.40); WHITE BLOOD CELL COUNT 7.9 /CUMM (4.8-10.8)
[2016-12-09 10:05] VITALS: BP 132/88
--- NOTE | 2016-12-09 10:57 | PN- Cardiology ---
Subjective Subjective: Clinically, the patient is improving. Her respiratory status is stable. She ambulated well with physical therapy today and was cleared to go home. From a medical standpoint and cardiology standpoint, the patient appears stable for discharge. Objective Vital Signs and I&Os Vital Signs Date Time Temp Pulse Resp B/P Pulse O2 O2 Flow FiO2 Ox Delivery Rate 12/09 1005 132/88 12/09 0823 95 Room Air 12/09 0800 97.0 96 18 126/90 96 Room Air 12/08 2327 98.7 88 18 116/76 98 Room Air 12/08 205 109 128/90 12/08 1907 97 Room Air Room Air 12/08 1641 98.8 80 18 122/72 96 Room Air 12/08 1600 96 Room Air Intake & Output 12/09 1600 12/09 0812/09 0000 12/08 1600 12/08 0800 12/08 0000 Intake Total 100 640 680 100 370 Output Total 450 100 300 Balance 100 640 230 0 70 Intake, IV 10 Intake, Oral 100 640 680 100 360 Number 0 2 1 Bowel Movements Output, Urine 450 100 300 Patient 182 lb 194 lb Weight Physical Exam: General Appearance: Alert, Oriented X3, Cooperative, no specific complaints Skin: Normal HEENT: Atraummatic Neck: Supple, JVP normal Cardiovascular: Regular Rate, slightly tachycardic Normal S1, Normal S2, 3/6 systolic ejection murmur Lungs: Clear bilaterally Abdomen: Normal Bowel Sounds, Soft, No Tenderness Neurological: Normal Speech, Normal Tone Extremities: No Edema, Normal Pulses Vascular: Normal Pulses, Pulses Symmetrical Current Medications: Current Medications Sig/Lico Start time Last Medication Dose Route Stop Time Status Admin Acetaminophen 650 MG Q6P PRN 12/07 0830 AC PO Albuterol Sulfate 3 ML BID 12/06 2199 AC 12/09 INH 0821 Amiodarone HCl 400 MG BID 12/07 1541 AC 12/09 PO 1005 Atorvastatin Calcium 10 MG QPM 12/04 2199 AC 12/08 PO 2049 Bupropion HCl 300 MG 12/05 08 AC 12/09 PO 1005 Enoxaparin Sodium 90 MG BID 11/29 2199 AC 12/09 SC 1010 Escitalopram Oxalate 10 MG QPM 12/04 2199 AC 12/08 PO 2049 Furosemide 20 MG 7:30 AM, & 4:30 PM 12/06 0730 AC 12/09 PO 0643 Hydroxychloroquine 200 MG BID 12/04 1413 AC 12/09 Sulfate PO 1006 Ipratropium [place] 2.5 ML BID 12/06 2199 AC 12/09 INH 0821 Lorazepam 0.5 MG AT BEDTIME 12/04 2199 AC 12/08 PO 12/11 2158 205 Melatonin 3 MG AT BEDTIME NEED.. 12/04 2345 AC 12/04 PO 2341 Nystatin 5 ML 4 TIMES/DAY 12/01 1957 DC 12/08 PO 1050 Omeprazole 40 MG DAILY AC 12/07 0700 AC 12/09 PO 0643 Ondansetron HCl 4 MG Q6P PRN 12/05 0815 AC 12/08 IV 0518 Potassium Chloride 20 MEQ DAILY 12/08 1000 AC 12/09 PO 1006 Prednisone 5 MG DAILY 12/08 1000 AC 12/09 PO 1006 Vancomycin HCl 125 MG Q6 12/07 1435 AC 12/09 PO 0643 Results Last 48 Hrs of Labs/Mics: Laboratory Tests 12/09/16 0830: Anion Gap 10, Estimated GFR 47 L, BUN/Creatinine Ratio 15.8, Magnesium 2.0, CBC w Diff NO MAN DIFF REQ, RBC 3.85 L, MCV 92.3, MCH 29.7, RDW 16.3 H, MPV 7.6, Gran % 79.7 H, Lymphocytes % 12.7 L, Monocytes % 6.9, Eosinophils % 0.7, Basophils % 0 L, Absolute Granulocytes 6.3, Absolute Lymphocytes 1.0 L, Absolute Monocytes 0.6, Absolute Eosinophils 0.1, Absolute Basophils 0, PUBS MCHC 32.1 L 12/08/16 0515: Anion Gap 8, Estimated GFR 58 L, BUN/Creatinine Ratio 18.0, Magnesium 2.1 Assessment/Plan Assessment/Plan Assessment: 1. Acute hypoxic respiratory failure with bilateral infiltrates on chest x-ray and CT chest -Improved. 2. History of hypertension 3. History of bicuspid aortic valve with aortic stenosis 4. 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 History of prior stroke 6. History of serial positive rheumatoid arthritis 7. Normocytic anemia 8. Markedly elevated sedimentation rate with elevated CRP 9. New onset atrial fibrillation Recommendations: -The patient appears to be stable from a medical standpoint for discharge today. -The patient was ambulated with physical therapy and cleared for discharge -Continue current medications -Decrease amiodarone to 200 mg twice a day at discharge. In 10 days we will decrease it further to 200 mg daily -Continue Lasix at discharge but decreased to 20 mg every other day -Follow-up with me in the office in one week -Follow-up echocardiogram as outpatient in 2-3 weeks -Follow-up CAT scan per Dr. Morel in 4 weeks -Further plans with respect to her valvular heart disease will be made after the follow-up echocardiogram is reviewed Continue telemetry? No transferred to the telemetry floor.
[2016-12-09] MEDS ORDERED: FUROSEMIDE20 M1 PO (11:17)
[2016-12-09] MEDS ORDERED: VANCOMYCIN HCL5 G1 PO (11:28)
[2016-12-09] MEDS ORDERED: AMIODARONE HCL200 M1 PO (11:30)
[2016-12-09] MEDS ORDERED: LOVENOX100 MG/1 M SC (11:33)
--- NOTE | 2016-12-09 11:41 | Patient Discharge Instructions ---
Discharge Instructions General Discharge Information You were seen/treated for: Acute hypoxemic respiratory failure Acute diastolic CHF Bicuspid aortic valve with severe stenosis New-onset atrial fibrillation C. difficile diarrhea Acute kidney injury You had these procedures: Bronchoscopy Watch for these problems: Chest pain or pressure Lightheadedness or shortness of breath Persistent cough Swelling in your ankles, legs or abdomen Numbness or weakness on one side of your face, arm or leg Special Instructions: Please follow up with your primary care physician Cassi Barajas APRN and bumper machine operator Dr. Lira within one week of discharge. Please follow up with front desk administrator Dr. Morel and community center director Dr. Cotter within two weeks of discharge. Please have your INR checked on Wednesday (12/11/16) and call Dr. Lira's office with the results. please take 5mg of coumadin on 12/10/2016 Please take all medications as prescribed. Diet Recommended Diet: Regular no added salt Activity Additional ACTIVITY Info: With assistance as tolerated Acute Coronary Syndrome Inclusion Criteria At DC or during hospital stay patient has or had the following: ACS DIAGNOSIS No Discharge Core Measures Meds if any: Prescribed or Continued at Discharge Meds if any: NOT Prescribed or Continued at Discharge Congestive Heart Failure Inclusion Criteria At DC or during hospital stay patient has or had the following: CHF DIAGNOSIS Yes Discharge Core Measures Meds if any: Prescribed or Continued at Discharge Meds if any: NOT Prescribed or Continued at Discharge Cerebrovascular accident Inclusion Criteria At DC or during hospital stay patient has or had the following: CVA/TIA Diagnosis No Discharge Core Measures Meds if any: Prescribed or Continued at Discharge Meds if any: NOT Prescribed or Continued at Discharge Venous thromboembolism Inclusion Criteria VTE Diagnosis No VTE Type NONE VTE Confirmed by (Test) NONE Discharge Core Measures - Per Current guidelines, there needs to be overlap - treatment for the first 5 days of Warfarin therapy. - If discharged on Warfarin prior to 5 days of - overlap therapy, the patient will need to be - assessed for post discharge needs including - *Post discharge parental anticoagulation - *Warfarin and/or parental anticoagulation education - *Follow up date to check INR post discharge At least 5 days overlap therapy as Inpatient Yes Meds if any: Prescribed or Continued at Discharge Note: Overlap Therapy is Warfarin and Anticoagulant Meds if any: NOT Prescribed or Continued at Discharge
--- NOTE | 2016-12-09 13:01 | PN- Housestaff ---
KIMBERLY VASQUEZTHIERRYAnamika 12/09/16 1300: Subjective Follow-up For: HFpEF new onset A.fib C. difficile Tele-Events Since Last Visit: Normal sinus, 78-92, no overnight events Subjective: Seen and examined patient offers no complaints. Is very very eager to go home as she says she feels well. Review of Systems Constitutional: Denies: chills, diaphoresis, fever, malaise, weakness, unexplained weight loss. Cardiovascular: Denies: chest pain, edema, orthopena, palpitations, peripheral edema, syncope. Respiratory: Denies: cough, hemoptysis, orthopnea, short of breath, sputum production, stridor, wheezing. Objective Last 24 Hrs of Vital Signs/I&O Vital Signs Date Time Temp Pulse Resp B/P Pulse O2 O2 Flow FiO2 Ox Delivery Rate 12/09 1005 132/88 12/09 0823 95 Room Air 12/09 08 97.0 96 18 126/90 96 Room Air 12/08 2327 98.7 88 18 116/76 98 Room Air 12/08 205 109 128/90 12/08 1907 97 Room Air Room Air 12/08 1641 98.8 80 18 122/72 96 Room Air 12/08 1600 96 Room Air Intake & Output 12/09 1600 12/09 0800 12/09 0000 Intake Total 100 640 Output Total Balance 100 640 Intake, Oral 100 640 Number 0 Bowel Movements Patient 182 lb Weight Physical Exam General Appearance: Alert, Oriented X3, Cooperative, No Acute Distress Cardiovascular: Regular Rate, Normal S1, Normal S2 Lungs: Clear to Auscultation, Normal Air Movement Current Medications: Current Medications Sig/Lico Start time Last Medication Dose Route Stop Time Status Admin Acetaminophen 650 MG Q6P PRN 12/07 0830 AC PO Albuterol Sulfate 3 ML BID 12/06 2199 AC 12/09 INH 0821 Amiodarone HCl 400 MG BID 12/07 1541 AC 12/09 PO 1005 Atorvastatin Calcium 10 MG QPM 12/04 2199 AC 12/08 PO 2049 Bupropion HCl 300 MG 12/05 0800 AC 12/09 PO 1005 Enoxaparin Sodium 90 MG BID 11/29 2199 AC 12/09 SC 1010 Escitalopram Oxalate 10 MG QPM 12/04 2199 AC 12/08 PO 2049 Furosemide 20 MG 7:30 AM, & 4:30 PM 12/06 0730 AC 12/09 PO 0643 Hydroxychloroquine 200 MG BID 12/04 1413 AC 12/09 Sulfate PO 1006 Ipratropium Avery 2.5 ML BID 12/06 2200 AC 12/09 INH 0821 Lorazepam 0.5 MG AT BEDTIME 12/04 220 AC 12/08 PO 12/11 2159 2050 Melatonin 3 MG AT BEDTIME NEED.. 12/04 2345 AC 12/04 PO 2341 Omeprazole 40 MG DAILY AC 12/07 0700 AC 12/09 PO 0643 Ondansetron HCl 4 MG Q6P PRN 12/05 0815 AC 12/08 IV 0518 Potassium Chloride 20 MEQ DAILY 12/08 1000 AC 12/09 PO 1006 Prednisone 5 MG DAILY 12/08 1000 AC 12/09 PO 1006 Vancomycin HCl 125 MG Q6 12/07 1435 AC 12/09 PO 0643 Warfarin Sodium 7.5 MG ONCE ONE 12/09 1115 DC PO 12/09 1116 Last 24 Hrs of Lab/Michael Results Last 24 Hrs of Labs/Mics: Laboratory Tests 12/09/16 0830: Anion Gap 10, Estimated GFR 47 L, BUN/Creatinine Ratio 15.8, Magnesium 2.0, CBC w Diff NO MAN DIFF REQ, RBC 3.85 L, MCV 92.3, MCH 29.7, RDW 16.3 H, MPV 7.6, Gran % 79.7 H, Lymphocytes % 12.7 L, Monocytes % 6.9, Eosinophils % 0.7, Basophils % 0 L, Absolute Granulocytes 6.3, Absolute Lymphocytes 1.0 L, Absolute Monocytes 0.6, Absolute Eosinophils 0.1, Absolute Basophils 0, PUBS MCHC 32.1 L Assessment/Plan Assessment: 51 y/o woman with PMHx of CVA in 2011 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 Initially admitted to general medicine floor for hypoxic respiratory failure and then transferred to the ICU for worsening respiratory status and was intubated. She was extubated on 12/03/16. Bronchoscopy was performed and bronchoalveolar lavage cultures were negative. Was also found to be C. difficile positive. Was transferred to the telemetry floor yesterday. Clinically stable for discharge today. Problem list: Acute respiratory failure-now resolved New onset atrial fibrillation History of CVA Hypertension History of bicuspid aortic valve with aortic stenosis History of rheumatoid arthritis on chronic prednisone Plan * Cardiology following. Appreciate their recs. * on amiodarone 400 mg will be discharged on 200 mg PO daily. * Continue Lovenox 90 mg SQ BID which was discontinued upon discharge and her Coumadin will be restarted patient is to take 7.5 mg today, 5 mg tomorrow check her INR on December 11. Also instructed to call her social worker psychiatric Dr. Lira tomorrow * Continue Lasix 20 mg PO BID. upon discharge she will be taking her Lasix every other day * On PO vancomycin for total 10 day course ,ID following. Appreciate their recs. * Continue prednisone 5 mg PO daily. * Her lisinopril, nifedipine was held upon discharge and she will be following up as outpt with social worker psychiatric to review if they should be restarted. * Per pulmn patient will require a repeat CT chest in 4 weeks. * CHF Diet DVT PPx: Lovenox and ALPs CODE: FULL Discharge: Physical therapy cleared patient for home with home services, discharge instructions were communicated to the patient and she verbalized understanding. Problem List: 1. Embolic stroke 2. Hypertension Pain Ratin Pain Location: na Pain Goal: Pain 4 or less Pain Plan: current regimen Tomorrow's Labs & Rationales: none required Consulting Request: Consulting Specialty: Rheumatology Consulting Physician: Ananth Cotter Reason for Consult: Evaluate current illness with respect to previous rheumatologic diagnoses KIM JESSICA MD 12/09/16 1417: Attending MD Review Statement Attending Statement Attending MD Statement: examined this patient, discuss w/resident/PA/AUDIO VISUAL PRODUCTION SPECIALIST, agreed w/resident/PA/AUDIO VISUAL PRODUCTION SPECIALIST, reviewed EMR data (avail) Attending Assessment/Plan: Patient seen and examined at bedside. Agree with resident assessment and plan. See resident note for full details. Patient stable for discharge home, will follow up social worker psychiatric within 10 days for adjustment of Amiodarone dose. Will continue on 200mg BID. Continue also per pulmonary recommendations.
== END 2016-12-09 15:32 | disposition home health service (06) | DRG 130 ==
LOC: ENRESERVTM → ENRESERVDT → ERH 12:01 → ENPENDDIS 19:40 → ERHI 19:40 → 2NA 19:40 → CRI 19:40 → 2NA 21:27 → CRI 11-26 00:13 → 1NO 12-08 14:52
PROVIDERS: Dermatology; Emergency Medicine; Internal Medicine; Internal Medicine Pulmonary Disease; Ophthalmology; Student in an Organized Health Care Education/Training Program; ADMIT Internal Medicine
PROC: 0BH17EZ Insertion of Endotracheal Airway into Trachea, Via Natural or Artificial Opening (ICD-10-PCS; principal; 2016-11-26)
PROC: 0B968ZX Drainage of Right Lower Lobe Bronchus, Via Natural or Artificial Opening Endoscopic, Diagnostic (ICD-10-PCS; 2016-11-26)
PROC: 0B9B8ZX Drainage of Left Lower Lobe Bronchus, Via Natural or Artificial Opening Endoscopic, Diagnostic (ICD-10-PCS; 2016-11-26)
PROC: 0B958ZX Drainage of Right Middle Lobe Bronchus, Via Natural or Artificial Opening Endoscopic, Diagnostic (ICD-10-PCS; 2016-11-26)
PROC: 5A1955Z Respiratory Ventilation, Greater than 96 Consecutive Hours (ICD-10-PCS; 2016-11-26)
DX: J96.01 Acute respiratory failure with hypoxia (principal); I50.31 Acute diastolic (congestive) heart failure; A04.7 Enterocolitis due to Clostridium difficile; J18.9 Pneumonia, unspecified organism; I48.91 Unspecified atrial fibrillation; M06.9 Rheumatoid arthritis, unspecified; M79.7 Fibromyalgia; Z86.73 Personal history of transient ischemic attack (TIA), and cerebral infarction without residual deficits; I35.1 Nonrheumatic aortic (valve) insufficiency; I73.00 Raynaud's syndrome without gangrene; I77.6 Arteritis, unspecified; F41.9 Anxiety disorder, unspecified; I10 Essential (primary) hypertension
CPT/HCPCS: 1NP; 2NASP; 84145; 87070; 87075; 87205; 87798; CCU; 36415; 76775; 81003; 82436; 82693; 87040; 87071; 87086; 87449; 87450; 87804; 87804-59; 88305; 93005; 93010; 93306; 93325; 93970; 94799; 96361; 96365; 96375; 97110-GO; 97116-GO; 97162-GP; 97530-GO; J0282; J0456; J0696; J1644; J1650; J1720; J1940; J2060; J2270; J2405; J2920; J3010; J3370; J7040; J7060; J7512; Q2036

== ENCOUNTER 2017-01-04 10:32 | Inpatient (IN) | payer OTHER ==
[~2017-01-04] VITALS: Ht 165.1 cm; Wt 80.3 kg
[~2017-01-04 10:32] MED LIST changes: +AGGRENOX 25 MG1 EACH PO; +AMIODARONE HCL200 M1 PO; +ATORVASTATIN CA10 M1 PO; +BUPROPION XL300 M1 PO; +COUMADIN2.5 M1 PO; +DUEXIS 800-26.1 EACH PO; +FUROSEMIDE20 M1 PO; +HYDROXYCHLOROQ200 M2 PO; +LEXAPRO20 M1 PO; +LISINOPRIL20 M1 PO; +LORAZEPAM0.5 M1 PO; +LOVENOX100 MG/1 M SC; +LYRICA75 M1 PO; +METOPROLOL SUCC25 M1 PO; +NIFEDIPINE ER30 M1 PO; +PREDNISONE5 M1 PO; +VANCOMYCIN HCL5 G1 PO; +WARFARIN SODIUM5 M1 PO
--- NOTE | 2017-01-04 10:44 | ED CARDIAC/CP/PALPITATIONS ---
History of Present Illness General Chief Complaint: Dyspnea (COPD, CHF, Other) Stated Complaint: SOB CHEST PRESSURE Source: patient, family, old records Exam Limitations: no limitations Reconcile Medications Amiodarone HCl 200 MG TABLET 1 TAB PO DAILY HEART (Reported) Atorvastatin Calcium 10 MG TABLET 1 TAB PO QPM CHOLESTEROL (Reported) Bupropion HCl (Bupropion XL) 300 MG TAB.ER.24H 1 TAB PO QAM ANXIETY/DEPRESSION (Reported) Dipyridamole W/ Aspirin (Aggrenox 25 MG-200 MG Capsule) 25 MG-200 MG CPMP.12HR 1 CAP PO BID BLOOD THINNER (Reported) Escitalopram Oxalate (Lexapro) 10 MG TABLET 1 TAB PO QPM ANXIETY (Reported) Furosemide 20 MG TABLET 1 TAB PO DAILY CHF (Reported) Hydroxychloroquine Sulfate 200 MG TABLET 1 TAB PO BID RA (Reported) Ibuprofen/Famotidine (Duexis 800-26.6 MG Tablet) 800 MG-26.6 MG TABLET 1 TAB PO TID PRN RA (Reported) Lorazepam 0.5 MG TABLET 1 TAB PO DAILY PRN ANXIETY (Reported) Metoprolol Succinate 25 MG TAB 1 TAB PO QAM HEART (Reported) Prednisone 5 MG TABLET 1 TAB PO DAILY RA (Reported) Pregabalin (Lyrica) 75 MG CAPSULE 1 CAP PO BID FIBROMYALGIA (Reported) Warfarin Sodium 5 MG TABLET 1 TAB PO Wednesday BLOOD THINNER ( Reported) Warfarin Sodium (Coumadin) 2.5 MG TABLET 1 TAB PO AD BLOOD THINNER (Reported) Triage Nurses Notes Reviewed? yes Onset: Abrupt Duration: day(s): (2), constant Timing: recent history Quality/Severity: moderate, severe, aching, pressure Location: substernal Radiation: no radiation Activities at Onset: none Prior Chest Pain/Card Workup: no prior chest pain Nitro Today/Relief: no nitro taken today Aspirin Today: no aspirin today Associated Symptoms: dyspnea HPI: 51 year old PMHx of rheumatoid arthritis maintained on steroids, bicuspid aortic valve, mitral valve stenosis and CVA, pe with recent admission one month ago for respiratory failure on Coumadin and Lovenox presents emergency room complaining of shortness of breath generalized bodyaches lethargy and chest pressure since yesterday. The patient is not O2 dependent. Symptoms are constant aching pressure-like, she reports a nonproductive cough and rhinorrhea congestion no fever or chills. On triage patient is noted to be hypoxic in the 80s put on 3 L . Fine Patcher is Dr. Lira (DONITA ALLEN) Vital Signs & Intake/Output Vital Signs & Intake/Output Vital Signs Date Time Temp Pulse Resp B/P Pulse O2 O2 Flow FiO2 Ox Delivery Rate 01/04 1654 95 22 91 Nasal 5.0L Cannula 01/04 1637 89 Nasal 5.0L Cannula 01/04 1625 98.0 91 24 96/67 89 Nasal 5.0L Cannula 01/04 1551 98.0 89 24 132/54 91 Nasal 5.0L Cannula 01/04 1208 96 Nasal 6.0L Cannula 01/04 1205 99.3 90 18 110/63 98 Nasal 4.0L Cannula 01/04 1057 86 22 140/61 97 Nasal 6.0L Cannula 01/04 1048 99.7 92 24 97/66 80 Room Air Allergies Coded Allergies: Sulfa (Sulfonamide Antibiotics) (N/V 01/04/17) (MISSY CROOKS,SYBIL Christopher) Past History Travel History Traveled to [place] past 21 day Yes Medical History Any Pertinent Medical History? see below for history Neurological: CVA Cardiovascular: AFIB, CHF, hypertension, HYPERLIPIDEMIA RHEAMATIC HEART DISEASE AORTIC STENOSIS Musculoskeletal: fibromyalgia, rheumatoid arthritis Psychiatric: anxiety History of MRSA: No History of VRE: No History of CDIFF: Yes Surgical History Surgical History: LITHOTRIPSY THERMAL UTERINE ABLATION Psychosocial History Who do you live with Spouse Services at Home None What is your primary language Malay Family History Family History, If Any: MOTHER FH: CAD (coronary artery disease) FH: hypertension Hx Contributory? No (DONITA ALLEN) Review of Systems Review of Systems Constitutional: Reports: see HPI. All Other Systems: Reviewed and Negative Comments Review of systems: See HPI, All other systems negative. Constitutional, no chills no fever, no malaise Cardiovascular: chest pain , no palpitation , no orthopnea no ankle swelling Skin, no jaundice no rashes, no change in skin Respiratory: dyspnea cough no sputum no hemoptysis GI: No nausea no vomiting, no diarrhea, no bloating/constipation : No dysuria Muscle skeletal: No joint pain, no joint swelling, no back pain Neurologic: No numbness no confusion, no headache Psych: No stress Heme/endocrine: No bruising no bleeding Immunology: No lymphadenopathy, (DONITA ALLEN) Physical Exam Physical Exam General Appearance: alert, awake, moderate distress Cardiovascular: regular rate/rhythm, murmur Comments: Well-developed well-nourished female in moderate respiratory distress HEENT: Normal EENT exam; PERRL, EOMI, no nystagmus. HEAD is atraumatic. moist mucous membranes. Neck: Supple, normal range of motion Back: Nontender,Full range of motion Cardiovascular: Regular rate and rhythms murmur Respiratory: Chest nontender.There were no bony deformities, no asymmetry. Moderate respiratory distress. Patient speaking in full complete sentences. Breath sounds clear to auscultation bilaterally: NO W/R/R Abdomen: Soft, nontender nondistended, no appreciable organomegaly. Normal bowel sounds. No rebound/guarding, Extremity: No edema, full range of motion of extremities Neuro: Alert oriented x3, motor sensory normal, There were no obvious focal neurologic abnormalities. Skin: No appreciable rash on exposed skin, skin is warm and dry. Psych: Mood and affect is normal, memory and judgment is normal. Core Measures ACS in differential dx? Yes Severe Sepsis Present: Yes BC x2: Yes Lactic Acid x2: Yes IV ABX Broad Spectrum: Yes NS/LR Started: No (CHF) Septic Shock Present: No BC x2: Yes Lactic Acid: Yes IV ABX Broad Spectrum: Yes Focused Exam Completed: Yes (DONITA ALLEN) ED Sepsis Exam Date of Focused Sepsis Exam: 01/04/17 Time of Focused Sepsis Exam: 1443 Sepsis Cardiac Exam: Regular Rate/Rhythm Sepsis Resp Exam: Rales Sepsis Cap Refill Exam: <2 Sec Sepsis Peripheral Pulse Exam: Normal Sepsis Peripheral Pulse Location: Radial Sepsis Skin Color Exam: Normal for Ethnicity Skin Temp/Moisture Exam: Cool/Dry (DONITA ALLEN) Progress Differential Diagnosis: AMI, aortic dissection, atrial fibrillation, CHF/pulm edema, musculoskeletal pain, myocarditis, pericarditis, pneumonia, pneumothorax, PSVT, pulmonary embolism, PVCs/PACs, unstable angina, respiratory failure collection light abnormality Diagnostic Imaging: Viewed by Me: Radiology Read. Discussed w/RAD: Radiology Read. Radiology Impression: PATIENT: JAISON VELASQUEZ PRESENT AGE: 51 PATIENT ACCOUNT NO: [id number] : 64 LOCATION: [facility] ORDERING PHYSICIAN: DONITA CANALES SERVICE DATE: 01/04/17-1051 EXAM TYPE: RAD - XRY- PORTABLE CHEST XRAY EXAMINATION: XR PORTABLE CHEST CLINICAL INFORMATION: Dyspnea. Hypoxia. COMPARISON: 12/04/2016 TECHNIQUE: Portable AP view of the chest was obtained. FINDINGS: Low lung volumes. Cardiac leads overlie the chest. There are hazy bilateral mid to lower lung opacities with peribronchial cuffing. Small pleural effusions are suspected. No pneumothorax. The cardiomediastinal silhouette is within normal limits. No acute osseous abnormality. IMPRESSION: Findings are most suggestive of pulmonary edema. Infectious process not fully excluded. DICTATED BY: BILL CROOKS,ROEL DATE/TIME DICTATED:01/04/171208 AIRFREIGHT LOADING SUPERVISOR:DESTINY DATE/TIME TRANSCRIBED:01/04/171208 CONFIDENTIAL, DO NOT COPY WITHOUT APPROPRIATE AUTHORIZATION. <Electronically signed in Other Vendor System> SIGNED BY: BILL CROOKS,ROEL 01/04/17 1214 Initial ED EKG: normal sinus at 90, right bundle branch block no acute ST segment changes Prior EKG: unchanged (11/2016) Rhythm Strip: normal sinus rhythm (DONITA ALLEN) Plan of Care: Orders Procedure Date/time Status PROTHROMBIN TIME 01/05 0600 Active CBC WITHOUT DIFFERENTIAL 01/05 0600 Active BASIC ELECTROLYTES PLUS BUN&CR 01/05 0600 Active CHF Diet 01/04 L Complete Heart Healthy Diet 01/04 D Active TROPONIN LEVEL 01/04 2300 Active EKG 01/04 2300 Active LACTIC ACID 01/04 1805 Active TROPONIN LEVEL 01/04 1700 Active LACTIC ACID 01/04 1700 Active EKG 01/04 1700 Active Pathway - chart 01/[address] CHEST W IV CONTRAST 01/04 1445 Active Misc Message 01/04 1415 Active ED Holding Orders 01/04 1415 Active Vital Signs 01/04 1415 Active ECHOCARDIOGRAM 01/04 1404 Active TRC EVALUATION (GEN) 01/04 1400 Active Pathway - chart 01/04 1400 Active House Staff 01/04 1400 Active Code Status 01/04 1400 Active RAPID VIRAL INFLUENZA A 01/04 1356 Active STREP PNEUMO URINARY ANTIGEN 01/04 1356 Active LEGIONELLA URINARY ANTIGEN 01/04 1356 Active LACTIC ACID 01/04 1351 Complete CULTURE,URINE 01/04 1332 Active LOWER RESPIRATORY CULTURE 01/04 1332 Active URINALYSIS 01/[address] in observation 01/04 1323 Active Patient Data 01/04 1310 Active Telemetry/Transition Coach 01/04 1106 Active ARTERIAL BLOOD GAS (GEN) 01/04 1051 Complete BLOOD CULTURE 01/04 1051 Active TROPONIN LEVEL 01/04 1051 Complete PARTIAL THROMBOPLASTIN TIME 01/04 1051 Complete PROTHROMBIN TIME 01/04 1051 Complete LACTIC ACID 01/04 1051 Complete COMPREHENSIVE METABOLIC PANEL 01/04 1051 Complete CBC WITHOUT DIFFERENTIAL 01/04 1051 Complete B-TYPE NATRIURETIC PEP (BNP) 01/04 1051 Complete EKG 01/04 1033 Active Weight 01/04 UNK Active VTE Mechanical Prophylaxis 01/04 UNK Active Intake & Output 01/04 UNK Active Current Medications Sig/Lico Start time Last Medication Dose Stop Time Status Admin Amiodarone HCl 200 MG DAILY 01/05 1000 AC (Cordarone) Bupropion HCl 300 MG QAM 01/05 1000 AC (Wellbutrin XL) Ceftriaxone Sodium 1,000 MG DAILY 01/05 1000 CAN (Rocephin) Furosemide 20 MG DAILY 01/05 1000 AC (Lasix) Metoprolol Succinate 25 MG QAM 01/05 1000 AC (Toprol XL) Prednisone 5 MG DAILY 01/05 1000 AC Atorvastatin Calcium 10 MG QPM 01/04 2200 AC (Lipitor) Dipyridamole/Aspirin 1 CAP BID 01/04 2200 AC (Aggrenox) Doxycycline Hyclate 100 MG Q12 01/04 2200 CAN (Vibramycin) Sodium Chloride 100 ML (Normal Saline 0.9%) Escitalopram Oxalate 10 MG QPM 01/04 2200 AC (Lexapro) Hydroxychloroquine 200 MG BID 01/04 2200 AC Sulfate (Plaquenil 200MG Tab) Pregabalin 75 MG BID 01/04 2200 AC (Lyrica) Vancomycin HCl 1,250 MG Q12H 01/04 1900 AC Dextrose/Water 250 ML (D5W) Famotidine 20 MG TIDPRN PRN 01/04 1600 AC (Pepcid) Ibuprofen 800 MG TIDPRN PRN 01/04 1600 AC (Motrin) Acetaminophen 650 MG Q6P PRN 01/04 1530 AC (Tylenol) Ibuprofen 600 MG Q6P PRN 01/04 1530 CAN (Motrin) Morphine Sulfate 1 MG Q6-PRN PRN 01/04 1530 AC (Morphine) Lorazepam 0.5 MG DAILY NEEDED PRN 01/04 1515 AC (Ativan) 01/11 151 Non-Formulary 0 SEE ADMIN CRITERIA 01/04 151 CAN Medication (NON FORMULARY) Laboratory Tests 01/04/17 1657: Lactic Acid Pending, Troponin I Pending 01/04/17 1411: Lactic Acid 2.8 H 01/04/17 1130: pH 7.48 H, pCO2 28 L, pO2 68 L, HCO3 20 L, ABG O2 Sat (Measured) 92.0 L, Carboxyhemoglobin 1.1 L, O2 Concentration % 5L, O2 Delivery Method NC, Phlebotomy Draw Site RIGHT BRACHIAL 01/04/17 1100: Anion Gap 9, Estimated GFR > 60, BUN/Creatinine Ratio 23.8, Glucose 100 H, Lactic Acid 2.4 H, Calcium 9.4, Total Bilirubin 0.9, AST 32, ALT 30, Alkaline Phosphatase 71, Troponin I 0.08, Eex-[id number]-Xqffdruvhsa Pept 5630 H, Total Protein 6.0 L, Albumin 3.4 L, Globulin 2.6, Albumin/Globulin Ratio 1.3, PT 59.9 *H, INR 5.80 *H, APTT 48 H, CBC w Diff MAN DIFF ORDERED, RBC 3.20 L, MCV 86.6, MCH 28.3, RDW 17.7 H, MPV 6.9 L, Gran % 88.0 H, Lymphocytes % 7.3 L, Monocytes % 4.3, Eosinophils % 0, Basophils % 0.4, Absolute Granulocytes 14.3 H, Segmented Neutrophils 91 H, Band Neutrophils 2, Absolute Lymphocytes 1.2, Lymphocytes 3 L, Monocytes 3, Absolute Monocytes 0.7 H, Absolute Eosinophils 0, Basophils 1, Absolute Basophils 0.1, Platelet Estimate VERIFIED BY SMEAR, Normocytic RBCs VERIFIED, Normochromic RBCs VERIFIED, PUBS MCHC 32.7 L Microbiology 01/04 1635 NASOPHARYN: Influenza Virus A & B Rapid Smear - RECD 01/04 1356 URINE ROUT: Legionella Antigen - COLB 01/04 1356 URINE ROUT: Streptococcus pneumoniae Antigen (M - COLB 01/04 1332 URINE ROUT: Urine Culture - COLB 01/04 1332 LOWER RESP: Respiratory Culture - COLB 01/04 1332 LOWER RESP: Gram Stain - COLB 01/04 1208 BLOOD: Blood Culture - RECD 01/04 1100 BLOOD: Blood Culture - RECD Labs ordered old records reviewed, patient medicated DuoNeb sign Medrol Lasix 40 IV patient was seen and evaluated by Dr. Bui who agrees with plan Rocephin 1G IV azithromycin 500MG IV ordered IV fluids withheld given chest x-ray findings CHF, patient is mentating well holding blood pressure Patient feeling improved after DuoNeb, 91-92 on 3 L, Case discussed with Dr. jessica will admit to tele (DONITA ALLEN) Departure Departure Time of Disposition: 1221 Disposition: STILL A PATIENT Condition: Stable Clinical Impression Primary Impression: Pulmonary edema Secondary Impressions: CHF exacerbation, Elevated INR, Hypoxia Referrals: FREDIS CHU APRN (PCP/Family) Departure Forms: Customer Survey General Discharge Information Observation Note Spoke With: KATHRYN JESSICA MD Physician Advisor Notified: POOJA CROOKS,ALPESH [facility] Patient In: Non-ED OBS Care Area Rationale for Observation: My rational for observation is as follows Patient will require IV diuresis IV antibiotics steroids cardiology pulmonology consult. Premature discharge would be medically harmful (DONITA ALLEN) PA/DEMOLITION SPECIALIST Co-Sign Statement Statement: ED Attending supervision documentation- [x] I saw and evaluated the patient. I have also reviewed all the pertinent lab results and diagnostic results. I agree with the findings and the plan of care as documented in the PA's/DEMOLITION SPECIALIST's documentation. severe shortness of breath upon presentation with hypoxia. Patient recently admitted for CHF. Lungs clear to auscultation with good air entry anteriorly bilaterally, no peripheral edema. 02 saturation on 4 L on presentation 87%. [] I have reviewed the ED Record and agree with the PA's/DEMOLITION SPECIALIST's documentation. [] Additions or exceptions (if any) to the PAs/DEMOLITION SPECIALIST's note and plan are summarized below: [] (MISSY CROOKS,SYBIL Christopher) Critical Care Note Critical Care Note Critical Care Time: 30-74 min (DONITA ALLEN)
--- NOTE | 2017-01-04 10:52 | NUR ---
TRIAGE: PT TO ER WITH C/C CHEST PRESSURE, DIFFICULTY BREATHING AND GENERALIZED ACHE. ONSET YESTERDAY. EXTREMITIES PALE/COOL TO TOUCH. BEST R/A SAT 80% DURING TRIAGE. PT TRIAGED IN [facility] WHILE GETTING EKG AND TRANSPORTED TO [facility] VIA STRETCHER. PLACED ON NASAL O2 AND ALLY DONOVAN INTO [place] PATIENT. PT WAS ADMITTED TO [place] IN NOVEMBER FOR RESPIRATORY S/S, DURING STAY WAS TRANSFERRED TO ICU FOR MULTILOBAR PNEUMONIA, WAS INTUBATED AND PER PATIENT DURING THIS TIME SHE ALSO HAD A MT. PT STATES SHE FEELS THE SAME NOW SHE DID THEN.
--- NOTE | 2017-01-04 10:52 | NUR ---
Informed waiting has been performed.
[2017-01-04] MEDS ORDERED: FUROSEMIDE20 M1 PO (11:09)
[2017-01-04 11:10] LABS: ABSOLUTE BASOPHIL COUNT 0.1 /CUMM (0.0-0.2); ABSOLUTE EOSINOPHIL COUNT 0 /CUMM (0.0-0.7); ABSOLUTE GRANULOCYTE CT 14.3 /CUMM (1.4-6.5); ABSOLUTE LYMPH COUNT 1.2 /CUMM (1.2-3.4); ABSOLUTE MONOCYTE COUNT 0.7 /CUMM (0.10-0.60); BASOPHIL % 0.4 % (0.0-2.0); EOSINOPHIL % 0 % (0-5); HEMATOCRIT 27.7 % (37-47); MEAN CORPUSCULAR HGB 28.3 PG (27.0-31.0); MEAN CORPUSCULAR HGB CONC 32.7 G/DL (33.0-37.0); MEAN CORPUSCULAR VOLUME 86.6 FL (81.0-99.0); MEAN PLATELET VOLUME 6.9 FL (7.4-10.4); PLATELET COUNT 416 /CUMM (130-400); RBC DISTRIBUTION WIDTH 17.7 % (11.5-14.5); WHITE BLOOD CELL COUNT 16.3 /CUMM (4.8-10.8)
[2017-01-04] MEDS ORDERED: AMIODARONE HCL200 M1 PO (11:10)
[2017-01-04 11:24] LABS: PTT 48 SEC (25-37)
--- NOTE | 2017-01-04 11:36 | NUR ---
CRITICAL TEST RESULTS [id number] JAISON VELASQUEZ 51 F TESTS AND RESULTS: LACTIC ACID 2.4 Results received and read back by: JIM CALLES Results received date and time: 01/04/17 1136 The following provider was notified of the results, and read the results back: DONITA Evans PA-C Notified date and time: 01/04/17 at 1136
[2017-01-04 11:39] LABS: PT 59.9 SEC (9.4-12.5)
--- NOTE | 2017-01-04 12:14 | RADIOLOGY REPORT ---
EXAMINATION: XR PORTABLE CHEST CLINICAL INFORMATION: Dyspnea. Hypoxia. COMPARISON: 12/04/2016 TECHNIQUE: Portable AP view of the chest was obtained. FINDINGS: Low lung volumes. Cardiac leads overlie the chest. There are hazy bilateral mid to lower lung opacities with peribronchial cuffing. Small pleural effusions are suspected. No pneumothorax. The cardiomediastinal silhouette is within normal limits. No acute osseous abnormality. IMPRESSION: Findings are most suggestive of pulmonary edema. Infectious process not fully excluded.
--- NOTE | 2017-01-04 12:50 | NUR ---
PT MEDICATED DOCUMENTED IN EMAR. OF PT AT BEDSIDE
--- NOTE | 2017-01-04 13:29 | History & Physical ---
CHINTAN CROOKS,[facility] 01/04/17 1328: General Information and HPI History of Present Illness: Ms. 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 She was in her usual state until yesterday when she suddenly these symptoms. She reports poor PO intake and sleep since then. Chest pressure is about 5 out of 10 and intermitten without any particular exacerbators or relievers. She usually uses 3 pillows under the back to sleep and denies any worsening of orthopnea or leg swelling recently. No palpitations at the time of the interview. Endorses headahce. Denies abdominal pain, n/c/v/d, and urinary sxs. No recent sick contact/illness/recent travel. She has not followed up with Dr. Morel yet as she is scheduled for an appointment in January. She was seen by Dr. Lira and Dr. Cotter during the past week with no concerns at the time of follow-ups. In fact she is scheduled for an echocardiogram by Dr. Lira tomorrow. On social history, patient is a fomrker smoker who quit decades ago. Currently javed any tobacco/alcohol/illicit drug use. She lives at home with her . Machine Former - Dr. Lira Contract Officer - Dr. Cotter Pulmonlogist - Dr. Morel Full code. 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 spouse Services at Home: None Primary Language: Tristanian ETOH Use: denies use Illicit Drug Use: denies illicit drug use Functional Ability ADLs Independent: dressing, eating, toileting, bathing. Ambulation: independent IADLs Independent: shopping, housework, finances, food prep, telephone, transportation , medication admin. Review of Systems Review of Systems Constitutional: Reports: see HPI. Exam & Diagnostic Data Last 24 Hrs of Vital Signs/I&O Vital Signs Date Time Temp Pulse Resp B/P Pulse O2 O2 Flow FiO2 Ox Delivery Rate 01/04 1208 96 Nasal 6.0L Cannula 01/04 1205 99.3 90 18 110/63 98 Nasal 4.0L Cannula 01/04 1057 86 22 140/61 97 Nasal 6.0L Cannula 01/04 1048 99.7 92 24 97/66 80 Room Air Intake & Output 01/04 1600 01/04 0800 01/04 0000 Intake Total 300 Output Total Balance 300 Intake, IV 300 Patient 84.368 kg Weight Physical Exam General Appearance Alert, Oriented X3, Cooperative, Mild Distress Skin No Rashes, No Breakdown, No Significant Lesion HEENT Atraumatic, PERRLA, EOMI, Dry MM Neck Supple, No JVD, +2 Carotid Pulse wo Bruit Cardiovascular Regular Rate, Normal S1, Normal S2, Grade 3 systolic murmur Lungs Crakles in bibasilar lungs Abdomen Normal Bowel Sounds, Soft, No Tenderness Neurological Normal Gait, Normal Speech, Strength at 5/5 X4 Ext, Normal Tone, Sensation Intact, Cranial Nerves 3-12 NL, Reflexes 2+ Extremities No Clubbing, No Cyanosis, No Edema, Normal Pulses, No Tenderness/ Swelling Vascular Normal Pulses, Pulses Symmetrical Last 24 Hrs of Labs/Michael: Laboratory Tests 01/04/17 1130: pH 7.48 H, pCO2 28 L, pO2 68 L, HCO3 20 L, ABG O2 Sat (Measured) 92.0 L, Carboxyhemoglobin 1.1 L, O2 Concentration % 5L, O2 Delivery Method NC, Phlebotomy Draw Site RIGHT BRACHIAL 01/04/17 1100: Anion Gap 9, Estimated GFR > 60, BUN/Creatinine Ratio 23.8, Glucose 100 H, Lactic Acid 2.4 H, Calcium 9.4, Total Bilirubin 0.9, AST 32, ALT 30, Alkaline Phosphatase 71, Troponin I 0.08, Lha-S-Sdzirrxepfb Pept 5630 H, Total Protein 6.0 L, Albumin 3.4 L, Globulin 2.6, Albumin/Globulin Ratio 1.3, PT 59.9 *H, INR 5.80 *H, APTT 48 H, CBC w Diff MAN DIFF ORDERED, RBC 3.20 L, MCV 86.6, MCH 28.3, RDW 17.7 H, MPV 6.9 L, Gran % 88.0 H, Lymphocytes % 7.3 L, Monocytes % 4.3, Eosinophils % 0, Basophils % 0.4, Absolute Granulocytes 14.3 H, Segmented Neutrophils 91 H, Band Neutrophils 2, Absolute Lymphocytes 1.2, Lymphocytes 3 L, Monocytes 3, Absolute Monocytes 0.7 H, Absolute Eosinophils 0, Basophils 1, Absolute Basophils 0.1, Platelet Estimate VERIFIED BY SMEAR, Normocytic RBCs VERIFIED, Normochromic RBCs VERIFIED, PUBS MCHC 32.7 L Microbiology 01/04 135 URINE ROUT: Legionella Antigen - COLB 01/04 1356 URINE ROUT: Streptococcus pneumoniae Antigen (M - COLB 01/04 1356 NASOPHARYN: Influenza Virus A & B Rapid Smear - COLB 01/04 1332 URINE ROUT: Urine Culture - COLB 01/04 1332 LOWER RESP: Respiratory Culture - COLB 01/04 1332 LOWER RESP: Gram Stain - COLB 01/04 1208 BLOOD: Blood Culture - RECD 01/04 1100 BLOOD: Blood Culture - RECD Diagnostic Data EKG Results Sinus rhythm with borderline tachycardia, old ST changes, prologed QTc > 510 Assessment/Plan Assessment: Ms. Gallardo is a 51-year-old lady with a PMH significant for HTN, HFpEF, CVA in 2011 secondary to embolization of AV vegeation on Coumadin, rheumatic heart disease, fibromyalgia, seronegative rheumatoid arthritis on prednisone, and recurrent calcium oxalate stones s/p lithotripsy, who presents after a sudden onset of chest pressure and exertional dsypnea associated with flu-like and URI symptoms including sore throat, nasal congestion, nonproductive cough, subjective fever, chills, fatigue, headache, and generalized malaise. She was in her usual state until yesterday when she suddenly these symptoms. # Acute hypoxic respiratory failure Oxygen satruation on admission 80%, requiring 6L of oxygen via NC. She is not oxygen dependent at home. Currently satting well on 4L O2. DDx includes healthcare acquired PNA, heart failure exacerbation, inflammatory/ rheumatological etiology. Patient received ceftraixone, azithro and Solumedrol in the ED * Admit to telemetery unit * Antibiotic therapy as discussed below * Oxygen support and TRC neb tx as needed * Follow echocardiogram * Cough suppresants # Sepsis most likely 2/2 healthcare acquired pneumonia Patient presents meets signs of SIRS (leukocytosis, tachycardia and tachypnea). Most likely infectious source is pneumonia at this point. - CXR (01/04): Findings are most suggestive of pulmonary edema. Infectious process not fully excluded. * Vitals per protocol, monitor for signs of infection * Start doxycycline and CTX (will avoid Zithromax in the setting of prolonged QTC) * Follow CT chest with contrast * Follow up pancultures and rapid flu * Check CBC daily, trend WBC until leukocytosis improves (of note patient is on chronic steroids but her WBC during the last admission was not elevated) * Appreciate pulm recs # HFpEF, HTN, Rheumatic hert disease, prior CVA * Cont Lasix 20mg PO daily and prednisone 5mg daily * Continue home med warfarin 5 mg PO daily, monitor INR daily * Cont home meds Aggrenox 1 cap PO BID and Lipitor 10 mg PO QPM * Appreciate cardio recs # Mental health * Ativan 0.5 mg PO PRN anxiety * Lexapro 10 mg PO QPM # RA, fibromyalgia * Continue plaquenil 200 mg PO BID * Continue lyrica 75 mg PO BID # CHF Diet - Chopped and Thin Liquids # Mild pain pathway # DVT PPx with Lovenox and ALPs # Full code. As Ranked By This Provider Problem List: 1. Hypertension 2. Full code status 3. DVT prophylaxis 4. Pain management 5. Pneumonia 6. Rheumatoid aortitis 7. Acute hypoxemic respiratory failure 8. Chronic anemia 9. CHF (congestive heart failure) 10. Rheumatic fever with cardiac involvement 11. History of CVA (cerebrovascular accident) 12. Mitral stenosis 13. Severe aortic stenosis 14. Acute diastolic CHF (congestive heart failure) 15. New onset atrial fibrillation 16. (HFpEF) heart failure with preserved ejection fraction 17. Candiduria 18. Rheumatoid arthritis 19. Pulmonary edema 20. Hypoxia 21. Kidney stones 22. Embolic stroke 23. Depression 24. Mild mitral stenosis 25. Interstitial lung disease Core Measures/Miscellaneous Acute Coronary Syndrome ACS Diagnosis: No Cerebrovascular Accident CVA/TIA Diagnosis: No Congestive Heart Failure CHF Diagnosis: No Venous Thromboembolism VTE Risk Factors: Age > 40 [facility] prophylaxis d/t: No contraindications No VTE Pharm Prophylaxis d/t: No contraindications VTE Diagnosis: No VTE Type: NONE VTE Confirmed by (Test): NONE Severe Sepsis Severe Sepsis Present: No Septic Shock Septic Shock Present: No Miscellaneous Documentation Attending Case Discussed With: MEREDITH HI MD Primary Care Physician: FREDIS CHU APRN Patient sees these Specialists See HPI Level of Patient Care: Telemetry DONITA MCDERMOTT 01/04/17 1426: General Information and HPI Allergies/Medications Home Med list Amiodarone HCl 200 MG TABLET 1 TAB PO DAILY HEART (Reported) Atorvastatin Calcium 10 MG TABLET 1 TAB PO QPM CHOLESTEROL (Reported) Bupropion HCl (Bupropion XL) 300 MG TAB.ER.24H 1 TAB PO QAM ANXIETY/DEPRESSION (Reported) Dipyridamole W/ Aspirin (Aggrenox 25 MG-200 MG Capsule) 25 MG-200 MG CPMP.12HR 1 CAP PO BID BLOOD THINNER (Reported) Escitalopram Oxalate (Lexapro) 10 MG TABLET 1 TAB PO QPM ANXIETY (Reported) Furosemide 20 MG TABLET 1 TAB PO DAILY CHF (Reported) Hydroxychloroquine Sulfate 200 MG TABLET 1 TAB PO BID RA (Reported) Ibuprofen/Famotidine (Duexis 800-26.6 MG Tablet) 800 MG-26.6 MG TABLET 1 TAB PO TID PRN RA (Reported) Lorazepam 0.5 MG TABLET 1 TAB PO DAILY PRN ANXIETY (Reported) Metoprolol Succinate 25 MG TAB 1 TAB PO QAM HEART (Reported) Prednisone 5 MG TABLET 1 TAB PO DAILY RA (Reported) Pregabalin (Lyrica) 75 MG CAPSULE 1 CAP PO BID FIBROMYALGIA (Reported) Warfarin Sodium 5 MG TABLET 1 TAB PO Wednesday BLOOD THINNER ( Reported) Warfarin Sodium (Coumadin) 2.5 MG TABLET 1 TAB PO AD BLOOD THINNER (Reported) Resident Review Statement Resident Statement: examined this patient, discussed with machine learning intern, agreed with machine learning intern, discussed with family, reviewed images Other Findings: This is a 51 years old lady with past medical history significant for CVA in 2012 secondary to embolization 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 fib during the stay. she is being admitted from home for shortness of breath chills fever posterior nasal dripping and congested upper airway with sore throat for the past 2 days. patient denies any sick contacts she has been using all her medication as instructed and has been following up with consultants and was doing pretty well before the start of the symptoms. She also reported chest pain located on the left 5 out of 10 pressure-like that is not radiating anywhere and she does not know an aggravating or relieving factors. She denies any palpitations, lightheadedness and dizziness or swelling of lower limbs, she has no orthopnea paroxysmal nocturnal dyspnea. He denies any painful urination nausea vomiting or abdominal pain. Vitals on arrival temperature 99.7 heart rate of 92 respirations slight decrease 24 blood pressure 97/66 saturating 80% on room air Physical examination: mild respiratory distress cutting words midsentence, alert and oriented to time place and person. HEENT: dry mucous membranes, no distended neck vessels CVS: RRR, S1, S2, 3/6 systolic murmur. Chest: Bilateral bronchial breath sounds more pronounced on the bases Labs: leukocytosis 16,300 with 88% granulocytes and 91 bands, anemia H&H 9.1 and 7.7, increased BUN of 19, lactic acidosis 2.4 and negative troponin 0.08 and proBNP 5630, INR 5.8 CXR: Pulmonary edema cannot rule out infection process Assessment and plan Acute hypoxic respiratory failure Health care acquired pneumonia Chest pain rule out ACS Severe sepsis Supratherapeutic INR Lactic acidosis Admit the patient to telemetry floor, vital signs every shift, strict I and O's, CHF diet, Sputum culture and sensitivity, blood culture and sensitivity, urine Legionella and streptococcal antigen, CT Chest, pulmo consult, Cover patient with broad antibiotics. TRC evaluation Trend troponin and EKG to rule out ACS Hold Coumadin and trend INR U/A and urine culture Trend lactic acid and NS hydration Continue home meds for HTN, HLD, Depression and RA Full code Pain pathway MEREDITH HI 01/04/17 1452: Attending MD Review Statement Attending Statement Attending MD Statement: examined this patient, discuss w/resident/PA/SAND MILLER, agreed w/resident/PA/SAND MILLER, discussed with family, reviewed EMR data (avail), discussed with nursing, discussed with case mgmt, reviewed images Attending Assessment/Plan: PMH CVA 2011, heart valve vegetation on coumadin, rheuamtic heart disease, on prednisone. Physical examination: mild respiratory distress cutting words midsentence, alert and oriented to time place and person. HEENT: dry mucous membranes, no distended neck vessels CVS: RRR, S1, S2, 3/6 systolic murmur. Chest: Bilateral Crackles more pronounced on the bases Labs: leukocytosis 16,300 with 88% granulocytes and 91 bands, anemia H&H 9.1 and 7.7, increased BUN of 19, lactic acidosis 2.4 and negative troponin 0.08 and proBNP 5630, INR 5.8 CXR: Pulmonary edema cannot rule out infection process Assessment and plan Acute hypoxic respiratory failure 2/2 Health care acquired pneumonia with probable compensated heart failure NYHA class 3, Chest pain rule out ACS serial cardiac enzymes trend and EKG, Severe sepsis 2/2 HCAP obtain blood culture x 2, CT chest with contrast as d/wed radiology. start broad spectrum abx, IVF, consult pulmonary. Lactic acidosis repeat LA level. gentle hydration Supratherapeutic INR, monitor INR , hold couamdin. Physical exam in this patient suggestive of pneumonia rather than acute decompenstaed chf. Patient does have elevated bnp, watch for fluid overlaod. strict i/o, daily weights. Also cardiology consulted for h/o valvular disease, echo ongoing, f/u results. gi/dvt prophyalxis full code. plan of care d/wed family/patient bedside in ER.
--- NOTE | 2017-01-04 14:32 | NUR ---
PT HAS BED ASSIGNMENT 172. RN NOTIFIED.
--- NOTE | 2017-01-04 14:42 | NUR ---
CRITICAL TEST RESULTS [id number] JAISON VELASQUEZ 51 F TESTS AND RESULTS: LACTIC ACID 2.8 Results received and read back by: JIM CALLES Results received date and time: 01/04/17 1442 The following provider was notified of the results, and read the results back: DONITA DONOVAN PA-C Notified date and time: 01/04/17 at 1442
--- NOTE | 2017-01-04 15:03 | NUR ---
FOOD TRAY ORDERED
--- NOTE | 2017-01-04 15:14 | Cons- Pulmonary ---
General Information and HPI Consulting Request Date of Consult: 01/04/17 Requested By: Dr. Simms Reason for Consult: dyspnea hypoxemic respiratory failure Source of Information: patient Exam Limitations: no limitations History of Present Illness: Consultation for dyspnea and hypoxemia. Primary test lead application testing - Dr. Morel. Metaphysician - Dr. Lira. 51 year old woman. History significant for hypertension, history of AV vegetation resulting in a CVA in 2011, rheumatic heart disease, fibromyalgia, RA on chronic prednisone. Recent admission requiring ICU level of care in 11/2016 for a multilobar pneumonia and exacerbation of heart failure. She now presents with chest pressure and dyspnea primarily on exertion. With a non-productive cough, cold like symptoms. She has chest pressure that is not relieved by anything at this time, + headache , + 3 pillow orthopnea. No sick contacts or travel history. No n/v/d/c. Former, remote smoking history. No tobacco, no illicit drugs. Lives at home with , no environmental exposures. Allergies/Medications Allergies: Coded Allergies: Sulfa (Sulfonamide Antibiotics) (N/V 01/04/17) Home Med List: Amiodarone HCl 200 MG TABLET 1 TAB PO DAILY HEART (Reported) Atorvastatin Calcium 10 MG TABLET 1 TAB PO QPM CHOLESTEROL (Reported) Bupropion HCl (Bupropion XL) 300 MG TAB.ER.24H 1 TAB PO QAM ANXIETY/DEPRESSION (Reported) Dipyridamole W/ Aspirin (Aggrenox 25 MG-200 MG Capsule) 25 MG-200 MG CPMP.12HR 1 CAP PO BID BLOOD THINNER (Reported) Escitalopram Oxalate (Lexapro) 10 MG TABLET 1 TAB PO QPM ANXIETY (Reported) Furosemide 20 MG TABLET 1 TAB PO DAILY CHF (Reported) Hydroxychloroquine Sulfate 200 MG TABLET 1 TAB PO BID RA (Reported) Ibuprofen/Famotidine (Duexis 800-26.6 MG Tablet) 800 MG-26.6 MG TABLET 1 TAB PO TID PRN RA (Reported) Lorazepam 0.5 MG TABLET 1 TAB PO DAILY PRN ANXIETY (Reported) Metoprolol Succinate 25 MG TAB 1 TAB PO QAM HEART (Reported) Prednisone 5 MG TABLET 1 TAB PO DAILY RA (Reported) Pregabalin (Lyrica) 75 MG CAPSULE 1 CAP PO BID FIBROMYALGIA (Reported) Warfarin Sodium 5 MG TABLET 1 TAB PO Wednesday BLOOD THINNER ( Reported) Warfarin Sodium (Coumadin) 2.5 MG TABLET 1 TAB PO AD BLOOD THINNER (Reported) Current Medications: Current Medications Sig/Lico Start time Last Medication Dose Route Stop Time Status Admin Albuterol Sulfate 3 ML ONCE ONE 01/04 1100 DC 01/04 INH 01/04 1101 1101 Azithromycin 500 MG ONCE ONE 01/04 1145 DC 01/04 Sodium Chloride 250 ML IV 01/04 1244 1231 Ceftriaxone Sodium 0 .STK-MED ONE 01/04 1152 DC .ROUTE Ceftriaxone Sodium 1,000 MG ONCE ONE 01/04 1145 DC 01/04 IV 01/04 1146 1211 Furosemide 0 .STK-MED ONE 01/04 1228 DC IV Furosemide 40 MG ONCE ONE 01/04 1215 DC 01/04 IV 01/04 1216 1231 Ipratropium [place] 2.5 ML ONCE ONE 01/04 1100 DC 01/04 INH 01/04 1101 1101 Methylprednisolone 125 MG ONCE ONE 01/04 1200 DC 01/04 IV 01/04 1201 1211 Methylprednisolone 0 .STK-MED ONE 01/04 1156 DC .ROUTE Pregabalin 75 MG BID 01/04 2200 AC PO Sodium Chloride 1,000 ML BOLUS ONE 01/04 1515 UNVr IV 01/04 1614 Review of Systems Comments 18 point Review of Systems performed. Positive and negative pertinent findings are deliniated in the HPI. Otherwise the ROS is negative. 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 spouse Services at Home: None Primary Language: Greenlandic ETOH Use: denies use Illicit Drug Use: denies illicit drug use Functional Ability ADLs Independent: dressing, eating, toileting, bathing. Ambulation: independent IADLs Independent: shopping, housework, finances, food prep, telephone, transportation , medication admin. Exam & Diagnostic Data Last 24 Hrs of Vital Signs/I&O Vital Signs Date Time Temp Pulse Resp B/P Pulse O2 O2 Flow FiO2 Ox Delivery Rate 01/04 1208 96 Nasal 6.0L Cannula 01/04 1205 99.3 90 18 110/63 98 Nasal 4.0L Cannula 01/04 1057 86 22 140/61 97 Nasal 6.0L Cannula 01/04 1048 99.7 92 24 97/66 80 Room Air Intake & Output 01/04 1600 01/04 0800 01/04 0000 Intake Total 300 Output Total Balance 300 Intake, IV 300 Patient 186 lb Weight Physical Exam Other Physical Findings: General - Alert, awake and oriented, mild distress HEENT - normocephalic, atraumatic, mild JVD Cardiovascular - S1, S2, +systolic murmur Lungs - bilateral coarse crackles Abdomen - soft, bowel sounds positive, no tenderness Extremities - without edema or cyanosis Last 48 Hrs of Labs/Michael: Laboratory Tests 01/04/17 1411: Lactic Acid 2.8 H 01/04/17 1130: pH 7.48 H, pCO2 28 L, pO2 68 L, HCO3 20 L, ABG O2 Sat (Measured) 92.0 L, Carboxyhemoglobin 1.1 L, O2 Concentration % 5L, O2 Delivery Method NC, Phlebotomy Draw Site RIGHT BRACHIAL 01/04/17 1100: Anion Gap 9, Estimated GFR > 60, BUN/Creatinine Ratio 23.8, Glucose 100 H, Lactic Acid 2.4 H, Calcium 9.4, Total Bilirubin 0.9, AST 32, ALT 30, Alkaline Phosphatase 71, Troponin I 0.08, Mcz-I-Kqcvqpkrqea Pept 5630 H, Total Protein 6.0 L, Albumin 3.4 L, Globulin 2.6, Albumin/Globulin Ratio 1.3, PT 59.9 *H, INR 5.80 *H, APTT 48 H, CBC w Diff MAN DIFF ORDERED, RBC 3.20 L, MCV 86.6, MCH 28.3, RDW 17.7 H, MPV 6.9 L, Gran % 88.0 H, Lymphocytes % 7.3 L, Monocytes % 4.3, Eosinophils % 0, Basophils % 0.4, Absolute Granulocytes 14.3 H, Segmented Neutrophils 91 H, Band Neutrophils 2, Absolute Lymphocytes 1.2, Lymphocytes 3 L, Monocytes 3, Absolute Monocytes 0.7 H, Absolute Eosinophils 0, Basophils 1, Absolute Basophils 0.1, Platelet Estimate VERIFIED BY SMEAR, Normocytic RBCs VERIFIED, Normochromic RBCs VERIFIED, PUBS MCHC 32.7 L Assessment/Plan Impression/Plan: Consultation for dyspnea and hypoxemia. Primary test lead application testing - Dr. Morel. Metaphysician - Dr. Lira. 51 year old woman. History significant for hypertension, history of AV vegetation resulting in a CVA in 2011, rheumatic heart disease, fibromyalgia, RA on chronic prednisone. Recent admission requiring ICU level of care in 11/2016 for a multilobar pneumonia and exacerbation of heart failure. She now presents with chest pressure and dyspnea primarily on exertion. With a non-productive cough, cold like symptoms. She has chest pressure that is not relieved by anything at this time, + headache , + 3 pillow orthopnea. No sick contacts or travel history. No n/v/d/c. Former, remote smoking history. No tobacco, no illicit drugs. Lives at home with , no environmental exposures. INR 5.8 on coumadin. Impression 51 year old woman * dyspnea and hypoxemic respiratory failure - it appears the she has pulmonary edema, possibly related to have valvular disease, less likely infectious etiology, she did however receive antibiotics, it is unlikely for the patient to have a VTE given the elevated INR. She also may potentially have amiodarone related lung toxicity, which is less likely. Plan -ECHO performed -consult Dr. Lira -she may require a cardiac cath -f/u BNP/troponins -cont abx for now, however if no consolidation noted on ct may likely stop -on prednisone for RA, ensure dosed in hospital -check CT chest without contrast -if there is any evidence of amiodarone related lung toxicity, amiodarone will need to be held -monitor INR DVT prophylaxis at all times Consult Acknowledgment - Thank you for your consult request.
--- NOTE | 2017-01-04 15:15 | NUR ---
NS INFUSING WIDE OPEN
--- NOTE | 2017-01-04 15:55 | NUR ---
ASSUMED CARE OF THIS PATIENT, REPORT RECEIVED FROM NIRALI CANO PER REPORT FROM NIRALI CANO REPORT WAS ALREADY GIVEN TO TELEMETRY FLOOR BUT PATIENT NEEDS CT SCAN PRIOR TO TRANSPORT. PT AT CT AT PRESENT.
--- NOTE | 2017-01-04 16:25 | NUR ---
PT WITH SATS 89% ON 5L VIA NASAL CANULA, IMPROVED TO 91% WITH SLOW/DEEP BREATHING. REQUESTING NEB TREATMENT. ROGE FROM [facility] CALLED FOR SAME.
--- NOTE | 2017-01-04 16:35 | NUR ---
INFLUENZA SWAB OBTAINED/SENT TO LAB
--- NOTE | 2017-01-04 16:37 | NUR ---
ROGE FROM [facility]PIRATORY THERAPY AT BEDSIDE FOR NEB TREATMENT.
--- NOTE | 2017-01-04 16:45 | NUR ---
PT REPORTS FEELING BETTER S/P NEB TREATMENT. SATS 91% ON 5L N/C S/P NEB TREATMENT.
--- NOTE | 2017-01-04 16:53 | NUR ---
MARY ANN WILHELM AT BEDSIDE FOR REPEAT BLOOD WORK AND EKG.
--- NOTE | 2017-01-04 16:55 | NUR ---
PT MEDICATED WITH FORTAZ PER ORDERS
--- NOTE | 2017-01-04 17:13 | NUR ---
NIRALI TOUSSAINT ON TELEMETRY UPDATED REGARDING PATIENT TRANSPORTATION BOOKED.
--- NOTE | 2017-01-04 17:45 | CT SCAN REPORT ---
EXAMINATION: CT CHEST WITH CONTRAST CLINICAL INFORMATION: Fever chills. Upper respiratory tract infections and sepsis COMPARISON: CT chest dated 11/23/2016 TECHNIQUE: Multidetector volumetric CT imaging of the chest was obtained after the administration of 50 mL of Optiray 320 intravenous contrast without immediate adverse reactions. Axial MIP volume rendering provided. Sagittal and coronal reformatted images were obtained. 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 It appears relatively patchy in the superior aspects of the upper lobes. Perihilar opacities were also seen on the previous examination. Compared to the prior study, it appears more groundglass on the current study and reaches the periphery of the lung. Associated consolidation with the groundglass opacities is less obvious on the current study. There is minor prominence of the interlobular septal thickening. Multiple air bronchograms noted within bilateral lungs. MEDIASTINUM: Multiple enlarged mediastinal lymph nodes noted again including the pretracheal lymphadenopathy measuring approximately 1.8 cm in short axis, left paratracheal/AP window lymph node more obvious on the current study measuring 1.3 cm in short axis and subcarinal mild lymphadenopathy. Mildly enlarged nodes noted in the region of the right hilum. Minor atherosclerotic disease with mild intimal calcification of the aorta and the coronary arteries. Subtle calcification of the aortic valve. Small hiatal hernia. PLEURA: Small bilateral pleural effusions, right slightly greater than left. AXILLA: No lymphadenopathy. UPPER ABDOMEN: Small nonobstructing calculus upper pole left kidney noted again measuring approximately 0.4 cm. OSSEOUS STRUCTURES: Mild degenerative changes. No acute osseous modality. IMPRESSION: 1. Diffuse bilateral opacities appear more groundglass and extend to the periphery on the current examination. There are multiple differential possibilities. Given the clinical, infection is a likely possibility. This appearance can be seen with opportunistic infection like PCP, or diffuse pneumonias. Noninfectious etiologies include cardiogenic or noncardiogenic edema. Follow-up CT chest after treatment recommended. 2. Small bilateral pleural effusions. 3. Mediastinal lymphadenopathy may represent reactive change. However, close monitoring is recommended. 4. Nonobstructing calculus upper pole left kidney.
[2017-01-04 18:00] VITALS: BP 109/68
--- NOTE | 2017-01-04 19:22 | Cons- Cardiology ---
General Information and HPI Consulting Request Date of Consult: 01/04/17 Requested By: SUSSY CROOKS,MEREDITH Reason for Consult: Congestive heart failure, aortic History of Present Illness: The patient is a 51-year-old female with history of bicuspid aortic valve, hypertension, CVA in 2012, severe aortic stenosis, chronic diastolic heart failure who is followed in the office by Dr. Lira. She had a prolonged admission in November and December 4 acute respiratory failure and acute diastolic heart failure. During that admission she had a transient episode of atrial fibrillation which resolved with amiodarone. She presents with new onset shortness of breath which is exacerbated by activity. She notes recent chest pressure which is exacerbated by inspiration. She also notes 3 pillow orthopnea , however she is unable to say if this is worse than her baseline. Allergies/Medications Allergies: Coded Allergies: Sulfa (Sulfonamide Antibiotics) (N/V 01/04/17) Home Med List: Amiodarone HCl 200 MG TABLET 1 TAB PO DAILY HEART (Reported) Atorvastatin Calcium 10 MG TABLET 1 TAB PO QPM CHOLESTEROL (Reported) Bupropion HCl (Bupropion XL) 300 MG TAB.ER.24H 1 TAB PO QAM ANXIETY/DEPRESSION (Reported) Dipyridamole W/ Aspirin (Aggrenox 25 MG-200 MG Capsule) 25 MG-200 MG CPMP.12HR 1 CAP PO BID BLOOD THINNER (Reported) Escitalopram Oxalate (Lexapro) 10 MG TABLET 1 TAB PO QPM ANXIETY (Reported) Furosemide 20 MG TABLET 1 TAB PO DAILY CHF (Reported) Hydroxychloroquine Sulfate 200 MG TABLET 1 TAB PO BID RA (Reported) Ibuprofen/Famotidine (Duexis 800-26.6 MG Tablet) 800 MG-26.6 MG TABLET 1 TAB PO TID PRN RA (Reported) Lorazepam 0.5 MG TABLET 1 TAB PO DAILY PRN ANXIETY (Reported) Metoprolol Succinate 25 MG TAB 1 TAB PO QAM HEART (Reported) Prednisone 5 MG TABLET 1 TAB PO DAILY RA (Reported) Pregabalin (Lyrica) 75 MG CAPSULE 1 CAP PO BID FIBROMYALGIA (Reported) Warfarin Sodium 5 MG TABLET 1 TAB PO Wednesday BLOOD THINNER ( Reported) Warfarin Sodium (Coumadin) 2.5 MG TABLET 1 TAB PO AD BLOOD THINNER (Reported) Current Medications: Current Medications Sig/Lico Start time Last Medication Dose Route Stop Time Status Admin Acetaminophen 650 MG Q6P PRN 01/04 1530 AC PO Albuterol Sulfate 3 ML ONCE ONE 01/04 1100 DC 01/04 INH 01/04 1101 1101 Amiodarone HCl 200 MG DAILY 01/05 1000 AC PO Atorvastatin Calcium 10 MG QPM 01/04 2200 AC PO Azithromycin 500 MG ONCE ONE 01/04 1145 DC 01/04 Sodium Chloride 250 ML IV 01/04 1244 1231 Bupropion HCl 300 MG QAM 01/05 1000 AC PO Ceftazidime 0 .STK-MED ONE 01/04 1647 DC .ROUTE Ceftazidime 2,000 MG IQ8 01/04 1600 AC 01/04 IV 1654 Ceftriaxone Sodium 1,000 MG DAILY 01/05 1000 CAN IV Ceftriaxone Sodium 0 .STK-MED ONE 01/04 1152 DC .ROUTE Ceftriaxone Sodium 1,000 MG ONCE ONE 01/04 1145 DC 01/04 IV 01/04 1146 1211 Dipyridamole/Aspirin 1 CAP BID 01/04 2200 AC PO Doxycycline Hyclate 100 MG Q12 01/04 2200 CAN Sodium Chloride 100 ML IV Escitalopram Oxalate 10 MG QPM 01/04 2200 AC PO Famotidine 20 MG TIDPRN PRN 01/04 1600 AC PO Furosemide 20 MG DAILY 01/05 1000 AC PO Furosemide 0 .STK-MED ONE 01/04 1228 DC IV Furosemide 40 MG ONCE ONE 01/04 1215 DC 01/04 IV 01/04 1216 1231 Hydroxychloroquine 200 MG BID 01/04 2200 AC Sulfate PO Ibuprofen 800 MG TIDPRN PRN 01/04 1600 AC PO Ibuprofen 600 MG Q6P PRN 01/04 1530 CAN PO Ipratropium Lena 2.5 ML ONCE ONE 01/04 1100 DC 01/04 INH 01/04 1101 1101 Lorazepam 0.5 MG DAILY NEEDED PRN 01/04 1515 AC PO 01/11 1514 Methylprednisolone 125 MG ONCE ONE 01/04 1200 DC 01/04 IV 01/04 1201 1211 Methylprednisolone 0 .STK-MED ONE 01/04 1156 DC .ROUTE Metoprolol Succinate 25 MG QAM 01/05 1000 AC PO Morphine Sulfate 1 MG Q6-PRN PRN 01/04 1530 AC IV Non-Formulary 0 SEE ADMIN CRITERIA 01/04 1515 CAN Medication ANY Prednisone 5 MG DAILY 01/05 1000 AC PO Pregabalin 75 MG BID 01/04 2200 AC PO Sodium Chloride 1,000 ML BOLUS ONE 01/04 1515 DC 01/04 IV 01/04 1614 1515 Vancomycin HCl 1,250 MG Q12H 01/04 1900 AC Dextrose/Water 250 ML IV Review of Systems Review of Systems: No rash. No tremor. No melena. No syncope. No palpitations. All other systems were reviewed, and were noted to be negative. 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 spouse Services at Home: None Primary Language: [place]ian Smoking Status: Former Smoker ETOH Use: denies use Illicit Drug Use: denies illicit drug use Functional Ability ADLs Independent: dressing, eating, toileting, bathing. Ambulation: independent IADLs Independent: shopping, housework, finances, food prep, telephone, transportation , medication admin. Exam & Diagnostic Data Vital Signs and I&O Vital Signs Date Time Temp Pulse Resp B/P Pulse O2 O2 Flow FiO2 Ox Delivery Rate 01/04 1916 91 Nasal 50% Cannula 01/04 1811 91 Nasal 50% Cannula 01/04 1800 99.0 93 22 109/68 93 Nasal 50% Cannula 01/04 1759 95 Nasal 50% Cannula 01/04 1654 95 22 91 Nasal 5.0L Cannula 01/04 1637 89 Nasal 5.0L Cannula 01/04 1625 98.0 91 24 96/67 89 Nasal 5.0L Cannula 01/04 1551 98.0 89 24 132/54 91 Nasal 5.0L Cannula 01/04 1208 96 Nasal 6.0L Cannula 01/04 1205 99.3 90 18 110/63 98 Nasal 4.0L Cannula 01/04 1057 86 22 140/61 97 Nasal 6.0L Cannula 01/04 1048 99.7 92 24 97/66 80 Room Air Intake & Output 01/04 1600 01/04 0800 01/04 0000 01/03 1600 01/03 0800 01/03 0000 Intake Total 300 Output Total Balance 300 Intake, IV 300 Patient 186 lb Weight Physical Exam: Gen: The patient is in no acute distress HEENT: Normal nose, ears, and oropharynx. Pupils equal bilaterally. Conjunctiva normal. Neck: Supple with no JVD, no masses, and no thyromegaly Lungs: Bilateral rales with normal respiratory effort Heart: RRR, S1, S2, 3/6 systolic murmur. No peripheral edema, 2+ pulses in the lower extremities bilaterally Abdomen: Soft, nontender, no masses. No hepatomegaly. No splenomegaly Extremities: No clubbing or cyanosis. Normal muscle strength in the upper and lower extremities Skin: Normal skin turgor with no skin ulcers or lesions noted. Neuro: Cranial nerves intact. Sensation intact Psych: Alert and oriented 3 with appropriate affect Labs/Michael Results: Laboratory Tests 01/04 01/04 01/04 1657 1411 1130 Blood Gas pH (7.35 - 7.45 PH) 7.48 H pCO2 (35 - 45 TORR) 28 L pO2 (80 - 100 TORR) 68 L HCO3 (21 - 28 MEQ/L) 20 L ABG O2 Sat (Measured) (>96.0 %) 92.0 L Carboxyhemoglobin (1.5 - 5.0 %) 1.1 L O2 Concentration % 5L O2 Delivery Method NC Chemistry Lactic Acid (0.7 - 2.1 mmol/L) 2.5 H 2.8 H Troponin I (< 0.11 ng/ml) 0.07 Miscellaneous Phlebotomy Draw Site RIGHT BRACHIAL 01/04 1100 Chemistry Sodium (137 - 145 mmol/L) 138 Potassium (3.5 - 5.1 mmol/L) 4.3 Chloride (98 - 107 mmol/L) 106 Carbon Dioxide (22 - 30 mmol/L) 22 Anion Gap (5 - 16) 9 BUN (7 - 17 mg/dL) 19 H Creatinine (0.5 - 1.0 mg/dL) 0.8 Estimated GFR (>60 ml/min) > 60 BUN/Creatinine Ratio (7 - 25 %) 23.8 Glucose (65 - 99 mg/dL) 100 H Lactic Acid (0.7 - 2.1 mmol/L) 2.4 H Calcium (8.4 - 10.2 mg/dL) 9.4 Total Bilirubin (0.2 - 1.3 mg/dL) 0.9 AST (14 - 36 U/L) 32 ALT (9 - 52 U/L) 30 Alkaline Phosphatase (<127 U/L) 71 Troponin I (< 0.11 ng/ml) 0.08 [id number] Pept (<125 pg/mL) 5630 H Total Protein (6.3 - 8.2 g/dL) 6.0 L Albumin (3.5 - 5.0 g/dL) 3.4 L Globulin (1.9 - 4.2 gm/dL) 2.6 Albumin/Globulin Ratio (1.1 - 2.2 %) 1.3 Coagulation PT (9.4 - 12.5 SEC) 59.9 *H INR (0.90 - 1.19) 5.80 *H APTT (25 - 37 SEC) 48 H Hematology CBC w Diff MAN DIFF ORDERED WBC (4.8 - 10.8 /CUMM) 16.3 H RBC (4.20 - 5.40 /CUMM) 3.20 L Hgb (12.0 - 16.0 G/DL) 9.1 L Hct (37 - 47 %) 27.7 L MCV (81.0 - 99.0 FL) 86.6 MCH (27.0 - 31.0 PG) 28.3 RDW (11.5 - 14.5 %) 17.7 H Plt Count (130 - 400 /CUMM) 416 H MPV (7.4 - 10.4 FL) 6.9 L Gran % (42.2 - 75.2 %) 88.0 H Lymphocytes % (20.5 - 51.1 %) 7.3 L Monocytes % (1.7 - 9.3 %) 4.3 Eosinophils % (0 - 5 %) 0 Basophils % (0.0 - 2.0 %) 0.4 Absolute Granulocytes (1.4 - 6.5 /CUMM) 14.3 H Segmented Neutrophils (42.2 - 75.2 %) 91 H Band Neutrophils (0.0 - 5.0 %) 2 Absolute Lymphocytes (1.2 - 3.4 /CUMM) 1.2 Lymphocytes (20.5 - 51.1 %) 3 L Monocytes (1.7 - 9.3 %) 3 Absolute Monocytes (0.10 - 0.60 /CUMM) 0.7 H Absolute Eosinophils (0.0 - 0.7 /CUMM) 0 Basophils (0.0 - 2.0 %) 1 Absolute Basophils (0.0 - 0.2 /CUMM) 0.1 Platelet Estimate (ADEQUATE) VERIFIED BY SMEAR Normocytic RBCs VERIFIED Normochromic RBCs VERIFIED PUBS MCHC (33.0 - 37.0 G/DL) 32.7 L Diagnostic Data EKG Results EKG tracing is independently reviewed, and reveals normal sinus rhythm at 96, left atrial abnormality, right bundle branch block CXR Results Low lung volumes. Cardiac leads overlie the chest. There are hazy bilateral mid to lower lung opacities with peribronchial cuffing. Small pleural effusions are suspected. No pneumothorax. The cardiomediastinal silhouette is within normal limits. No acute osseous abnormality. Other Results CT scan of the chest 01/04/17: 1. Diffuse bilateral opacities appear more groundglass and extend to the periphery on the current examination. There are multiple differential possibilities. Given the clinical, infection is a likely possibility. This appearance can be seen with opportunistic infection like PCP, or diffuse pneumonias. Noninfectious etiologies include cardiogenic or noncardiogenic edema. Follow-up CT chest after treatment recommended. 2. Small bilateral pleural effusions. 3. Mediastinal lymphadenopathy may represent reactive change. However, close monitoring is recommended. 4. Nonobstructing calculus upper pole left kidney. KESHIA 11/30/16: 1. 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 There is evidence of severe valvular stenosis with a PG of 78 mmHg and a MG of 48 mmHg. The planimetered valve area was difficult to assess but appears to be about 0.7 - 0.8 cm2. 2. Thickening of the mitral leaflets is present with rheumatic changes present extending into the subvalvular chordal structures. The PDG is 24 mmHg with a MDG of 14 mmHg and an estimated MVA of 1.8 - 2.0 cm2 with mild to moderate mitral insufficiency and mild to moderate left atrial enlargement. 3. The left atrial appendage is enlarged and mildly hypokinetic with spontaneous contrast present but no evidence of thrombus. 4. The pulmonary venous anatomy is normal bilaterally. 5. A small pericardial effusion is present which is hemodynamically insignificant. 6. THe left ventricular chamber size is normal with mild concentric hypertrophy and a normal ejection fraction.\ 7. Mild enlargement of the right heart chambers is present with minimal to mild tricuspid and pulmonic insufficiency. THe RV systolic pressure could not be accurately assessed. 8. There is no evidence of atrial level shunt. 9. Mild atheromatous plaque is noted in the distal aortic arch and proximal descending thoracic aorta. Assessment/Plan Assessment/Plan The patient is a 51-year-old female with history of bicuspid aortic valve, severe aortic stenosis, mild to moderate mitral stenosis and mild to moderate mitral regurgitation, history of CVA. She is admitted with shortness of breath and respiratory failure with pulmonary edema. This appears to represent an acute HFpEF exacerbation. The likely etiology for the heart failure is the severe aortic stenosis. Patient was given 40 mg of IV Lasix in the emergency department, and she responded well. She had a recent episode of paroxysmal atrial fibrillation, and she is anticoagulated on warfarin. Her INR is supratherapeutic on presentation Plan: * Continue IV Lasix 40 mg every 12 hours. * If she has evidence of hypotension, then the Lasix dose may need to be decreased * Check serial troponin * Echocardiogram pending * Check basic metabolic profile and INR daily * Given recurrent congestive heart failure in the setting of severe aortic stenosis she is a candidate for aortic valve replacement. If she can be stabilized for discharge, she can be evaluated as an outpatient for aortic valve replacement * Hold warfarin for elevated INR Consult Acknowledgment - Thank you for your consult request.
[2017-01-04 22:32] VITALS: BP 144/50; BP 98/62
--- NOTE | 2017-01-05 07:03 | PN- Housestaff ---
RUSLAN CROOKS,[facility] 01/05/17 0702: Subjective Follow-up For: Acute hypoxic respiratory failure Severe Aortic stenosis Tele-Events Since Last Visit: Sinus rhythm 85-89bpm Subjective: I saw and examined the patient today morning She is lying in the bed, with high flow oxygen therapy. She denies any chest pain, shortness of breath. Unable to walk due to exertional dyspnea. Feels better from the time she came in. Review of Systems Constitutional: Reports: see HPI. Comments: ROS negative except the above. Objective Last 24 Hrs of Vital Signs/I&O Vital Signs Date Time Temp Pulse Resp B/P Pulse O2 O2 Flow FiO2 Ox Delivery Rate 01/05 0642 91 Nasal 55% Cannula 01/05 0356 91 Nasal 55% Cannula 01/05 0211 Nasal 50% Cannula 01/05 0000 88 Nasal 55% Cannula 01/04 2300 89 Nasal 50% Cannula 01/04 2232 98.1 89 20 98/62 88 Nasal 50% Cannula 01/04 1916 91 Nasal 50% Cannula 01/04 1811 91 Nasal 50% Cannula 01/04 1800 99.0 93 22 109/68 93 Nasal 50% Cannula 01/04 1759 95 Nasal 50% Cannula 01/04 1654 95 22 91 Nasal 5.0L Cannula 01/04 1637 89 Nasal 5.0L Cannula 01/04 1625 98.0 91 24 96/67 89 Nasal 5.0L Cannula 01/04 1551 98.0 89 24 132/54 91 Nasal 5.0L Cannula 01/04 1208 96 Nasal 6.0L Cannula 01/04 1205 99.3 90 18 110/63 98 Nasal 4.0L Cannula 01/04 1057 86 22 140/61 97 Nasal 6.0L Cannula 01/04 1048 99.7 92 24 97/66 80 Room Air Intake & Output 01/05 0800 01/05 0000 01/04 1600 Intake Total 350 140 300 Output Total 700 400 Balance -350 -260 300 Intake, IV 300 20 300 Intake, Oral 50 120 Number 1 Bowel Movements Output, Urine 700 400 Patient 83.263 kg 84.368 kg 84.368 kg Weight Physical Exam General Appearance: Alert, Oriented X3, Cooperative Skin: No Rashes, No Breakdown HEENT: Atraumatic, PERRLA, EOMI Neck: Supple Lungs: Clear to Auscultation, Normal Air Movement Abdomen: Normal Bowel Sounds, Soft, No Tenderness Neurological: Normal Speech Extremities: No Clubbing, No Cyanosis, Normal Pulses Current Medications: Current Medications Sig/Lico Start time Last Medication Dose Route Stop Time Status Admin Acetaminophen 650 MG Q6P PRN 01/04 1530 AC PO Albuterol Sulfate 3 ML TID 01/05 1000 AC INH Albuterol Sulfate 3 ML ONCE ONE 01/04 1100 DC 01/04 INH 01/04 1101 1101 Amiodarone HCl 200 MG DAILY 01/05 1000 AC PO Atorvastatin Calcium 10 MG QPM 01/04 2200 AC 01/04 PO 2138 Azithromycin 500 MG ONCE ONE 01/04 1145 DC 01/04 Sodium Chloride 250 ML IV 01/04 1244 1231 Bupropion HCl 300 MG QAM 01/05 1000 AC PO Ceftazidime 0 .STK-MED ONE 01/04 1647 DC .ROUTE Ceftazidime 2,000 MG IQ8 01/04 1600 AC 01/04 IV 2323 Ceftriaxone Sodium 1,000 MG DAILY 01/05 1000 CAN IV Ceftriaxone Sodium 0 .STK-MED ONE 01/04 1152 DC .ROUTE Ceftriaxone Sodium 1,000 MG ONCE ONE 01/04 1145 DC 01/04 IV 01/04 1146 1211 Dipyridamole/Aspirin 1 CAP BID 01/04 2200 AC 01/04 PO 2138 Doxycycline Hyclate 100 MG Q12 01/04 2200 CAN Sodium Chloride 100 ML IV Escitalopram Oxalate 10 MG QPM 01/04 2200 AC 01/04 PO 2138 Famotidine 20 MG TIDPRN PRN 01/04 1600 AC PO Furosemide 20 MG DAILY 01/05 1000 AC PO Furosemide 20 MG ONCE ONE 01/04 2145 DC 01/04 IV 01/04 2146 2138 Furosemide 0 .STK-MED ONE 01/04 1228 DC IV Furosemide 40 MG ONCE ONE 01/04 1215 DC 01/04 IV 01/04 1216 1231 Hydroxychloroquine 200 MG BID 01/04 2200 AC 01/04 Sulfate PO 2138 Ibuprofen 800 MG TIDPRN PRN 01/04 1600 AC PO Ibuprofen 600 MG Q6P PRN 01/04 1530 CAN PO Ipratropium [place] 2.5 ML TID 01/05 1000 AC INH Ipratropium [place] 2.5 ML ONCE ONE 01/04 1100 DC 01/04 INH 01/04 1101 1101 Lorazepam 0.5 MG DAILY NEEDED PRN 01/04 1515 AC PO 01/11 1514 Methylprednisolone 125 MG ONCE ONE 01/04 1200 DC 01/04 IV 01/04 1201 1211 Methylprednisolone 0 .STK-MED ONE 01/04 1156 DC .ROUTE Metoprolol Succinate 25 MG QAM 01/05 1000 AC PO Morphine Sulfate 1 MG Q6-PRN PRN 01/04 1530 AC IV Non-Formulary 0 SEE ADMIN CRITERIA 01/04 1515 CAN Medication ANY Prednisone 5 MG DAILY 01/05 1000 AC PO Pregabalin 75 MG BID 01/04 2200 AC 01/04 PO 2138 Sodium Chloride 1,000 ML BOLUS ONE 01/04 1515 DC 01/04 IV 01/04 1614 1515 Vancomycin HCl 1,250 MG Q12 01/05 1000 AC Dextrose/Water 250 ML IV Vancomycin HCl 1,250 MG Q12H 01/04 1900 DC 01/04 Dextrose/Water 250 ML IV 2220 Last 24 Hrs of Lab/Michael Results Last 24 Hrs of Labs/Mics: Laboratory Tests 01/05/17 0615: Anion Gap 8, Estimated GFR > 60, BUN/Creatinine Ratio 22.2, PT 40.0 H, INR 3.86 H, CBC w Diff MAN DIFF ORDERED, RBC 2.91 L, MCV 87.3, MCH 28.0, RDW 17.9 H, MPV 7.6, Gran % 91.3 H, Lymphocytes % 4.1 L, Monocytes % 4.2, Eosinophils % 0, Basophils % 0.4, Absolute Granulocytes 17.1 H, Absolute Lymphocytes 0.8 L, Absolute Monocytes 0.8 H, Absolute Eosinophils 0, Absolute Basophils 0.1, Platelet Estimate VERIFIED BY SMEAR, Polychromasia 1+, Anisocytosis 1+, PUBS MCHC 32.0 L 01/05/17 0347: Lactic Acid Cancelled 01/05/17 0105: Lactic Acid 1.2 01/04/17 2325: Troponin I 0.04 01/04/17 2230: Urine Color YEL, Urine Clarity CLEAR, Urine pH 6.0, Ur Specific [place] 1.015, Urine Protein NEG, Urine Ketones NEG, Urine Nitrite NEG, Urine Bilirubin NEG, Urine Urobilinogen 0.2, Ur Leukocyte Esterase NEG, Ur Microscopic EXAM NOT REQUIRED, Urine Hemoglobin NEG, Urine Glucose NEG 01/04/17 1950: Lactic Acid 2.7 H 01/04/17 1657: Lactic Acid 2.5 H, Troponin I 0.07 01/04/17 1411: Lactic Acid 2.8 H Microbiology 01/04 2230 URINE ROUT: Legionella Antigen - COMP 01/04 2230 URINE ROUT: Streptococcus pneumoniae Antigen (M - COMP 01/04 2230 URINE ROUT: Urine Culture - RES 01/04 1635 NASOPHARYN: Influenza Virus A & B Rapid Smear - COMP 01/04 1332 LOWER RESP: Respiratory Culture - COLB 01/04 133 LOWER RESP: Gram Stain - COLB Lines/Diet/Fluids Lines: peripheral lines Assessment/Plan Assessment: Patient is a 51 YO F with PMH significant for HTN, HFpEF, CVA in 2011 secondary to embolization of AV vegeation on Coumadin, rheumatic heart disease, fibromyalgia, seronegative rheumatoid arthritis on prednisone, and recurrent calcium oxalate stones s/p lithotripsy, who presents after a sudden onset of chest pressure and exertional dsypnea associated with flu-like and URI symptoms including sore throat, nasal congestion, nonproductive cough, subjective fever, chills, fatigue, headache, and generalized malaise. She was in her usual state until yesterday when she suddenly these symptoms. # Acute hypoxic respiratory failure Oxygen satruation on admission 80%, requiring 6L of oxygen via NC. She is not oxygen dependent at home. Currently on high flow oxygen. DDx includes healthcare acquired PNA, heart failure exacerbation/Amiodarone side effect. Patient received ceftraixone, azithro and Solumedrol in the ED * Admit to telemetery unit * On ceftaz and vanco for suspected diffuse pneumonia (admitted in the past 90days) * Oxygen support and TRC neb tx as needed * Cough suppresants Sever Aortic Stenosis causing CHF * On IV lasix 20mg BID - monitor BP * Needs replacement soon once stabilized. * F/U ECHO * Tele monitoring # Sepsis most likely 2/2 healthcare acquired pneumonia Patient presents meets signs of SIRS (leukocytosis, tachycardia and tachypnea). Most likely infectious source is pneumonia at this point. - CXR (01/04): Findings are most suggestive of pulmonary edema. Infectious process not fully excluded. * Vitals per protocol, monitor for signs of infection * CT chest with contrast reveals diffuse bilateral opacities appear more groundglass with multiple differential possibilities. * Follow up pancultures, legionella & flu negative so far. * Check CBC daily, trend WBC until leukocytosis improves (of note patient is on chronic steroids but her WBC during the last admission was not elevated) * Given being septic, with lactic acidosis at admission, white count elevated we consider this is more of an infection * Appreciate pulm recs # HFpEF, HTN, Rheumatic hert disease, prior CVA * prednisone 5mg daily * Holding warfarin till INR is therapeutic. * Continue metorplol succinate (Tpprol XL) 25mg for HTN * Cont home meds Aggrenox 1 cap PO BID and Lipitor 10 mg PO QPM * Appreciate cardio recs # Mental health * Ativan 0.5 mg PO PRN anxiety * Lexapro 10 mg PO QPM # RA, fibromyalgia * Continue plaquenil 200 mg PO BID * Continue lyrica 75 mg PO BID # CHF Diet - Chopped and Thin Liquids # Mild pain pathway # DVT PPx ALPs # Full code. Problem List: 1. Rheumatoid arthritis 2. Pulmonary edema 3. Elevated INR 4. Severe aortic stenosis 5. Hypokalemia 6. Interstitial lung disease Pain Ratin Pain Location: chest pain Pain Goal: Pain 4 or less Pain Plan: tylenol prn Tomorrow's Labs & Rationales: cbc to monitor white count - PNA BEP to monitor electrolytes - on IV lasix PT - on warfarin at home [facility] 01/05/17 0917: Attending MD Review Statement Attending Statement Attending MD Statement: examined this patient, discuss w/resident/PA/CARE AID, agreed w/resident/PA/CARE AID, discussed with family, reviewed EMR data (avail), discussed with nursing, discussed with case mgmt, reviewed images Attending Assessment/Plan: Acute hypoxic respiratory failure 2/2 possible Health care acquired pneumonia vs heart failure NYHA class 3 2/2 severe aortic stenosis a candidate for aortic valve replacement in future, Chest pain rule out ACS serial cardiac enzymes negative for PR, Severe sepsis 2/2 HCAP obtain blood culture x 2, CT chest with contrast differential vast cannot exclude infction, f/u pulmonary. c/w broad spectrum abx, Lactic acidosis 1.2 trended down. Supratherapeutic INR, monitor INR , hold couamdin. Patient does have elevated bnp, watch for fluid overlaod. Lasix use as per cardio. strict i/o, daily weights. f/u cardiology consulted for h/o valvular disease, echo f/u. gi/dvt prophyalxis full code.
[2017-01-05 08:05] LABS: ABSOLUTE BASOPHIL COUNT 0.1 /CUMM (0.0-0.2); ABSOLUTE EOSINOPHIL COUNT 0 /CUMM (0.0-0.7); ABSOLUTE GRANULOCYTE CT 17.1 /CUMM (1.4-6.5); ABSOLUTE LYMPH COUNT 0.8 /CUMM (1.2-3.4); ABSOLUTE MONOCYTE COUNT 0.8 /CUMM (0.10-0.60); BASOPHIL % 0.4 % (0.0-2.0); EOSINOPHIL % 0 % (0-5); GRANULOCYTE % 91.3 % (42.2-75.2); HEMATOCRIT 25.4 % (37-47); MEAN CORPUSCULAR VOLUME 87.3 FL (81.0-99.0); MEAN PLATELET VOLUME 7.6 FL (7.4-10.4); PLATELET COUNT 362 /CUMM (130-400); RBC DISTRIBUTION WIDTH 17.9 % (11.5-14.5); RED BLOOD CELL CT 2.91 /CUMM (4.20-5.40); WHITE BLOOD CELL COUNT 18.8 /CUMM (4.8-10.8)
[2017-01-05 08:29] VITALS: BP 102/62
--- NOTE | 2017-01-05 10:26 | PN- Cardiology ---
Subjective Subjective: SOB somewhat better, but still significantly SOB on ambulation. No chest pain. No palp. No lightheadedness. No N/V. Objective Vital Signs and I&Os Vital Signs Date Time Temp Pulse Resp B/P Pulse O2 O2 Flow FiO2 Ox Delivery Rate 01/05 0938 102/62 01/05 0937 102/62 01/05 0829 98.8 93 22 102/62 95 Nasal 50% Cannula 01/05 0806 96 Nasal 55% Cannula 01/05 0800 Nasal 55% Cannula 01/05 0642 91 Nasal 55% Cannula 01/05 0356 91 Nasal 55% Cannula 01/05 0211 Nasal 50% Cannula 01/05 0000 88 Nasal 55% Cannula 01/04 2300 89 Nasal 50% Cannula 01/04 2232 98.1 89 20 98/62 88 Nasal 50% Cannula 01/04 1916 91 Nasal 50% Cannula 01/04 1811 91 Nasal 50% Cannula 01/04 1800 99.0 93 22 109/68 93 Nasal 50% Cannula 01/04 1759 95 Nasal 50% Cannula 01/04 1654 95 22 91 Nasal 5.0L Cannula 01/04 1637 89 Nasal 5.0L Cannula 01/04 1625 98.0 91 24 96/67 89 Nasal 5.0L Cannula 01/04 1551 98.0 89 24 132/54 91 Nasal 5.0L Cannula 01/04 1208 96 Nasal 6.0L Cannula 01/04 1205 99.3 90 18 110/63 98 Nasal 4.0L Cannula 01/04 1057 86 22 140/61 97 Nasal 6.0L Cannula 01/04 1048 99.7 92 24 97/66 80 Room Air Intake & Output 01/05 1600 01/05 0801/05 0000 01/04 1600 01/04 0800 01/04 0000 Intake Total 350 140 300 Output Total 700 400 Balance -350 -260 300 Intake, IV 300 20 300 Intake, Oral 50 120 Number 1 Bowel Movements Output, Urine 700 400 Patient 184 lb 186 lb 186 lb Weight Physical Exam: Gen: The patient is in no acute distress HEENT: Normal nose, ears, and oropharynx. Pupils equal bilaterally. Conjunctiva normal. Neck: Supple with no JVD, no masses, and no thyromegaly Lungs: Bilateral rales with normal respiratory effort Heart: RRR, S1, S2, 3/6 systolic murmur. No peripheral edema, 2+ pulses in the lower extremities bilaterally Abdomen: Soft, nontender, no masses. No hepatomegaly. No splenomegaly Extremities: No clubbing or cyanosis. Normal muscle strength in the upper and lower extremities Skin: Normal skin turgor with no skin ulcers or lesions noted. Current Medications: Current Medications Sig/Lico Start time Last Medication Dose Route Stop Time Status Admin Acetaminophen 650 MG Q6P PRN 01/04 1530 AC PO Albuterol Sulfate 3 ML TID 01/05 1000 AC 01/05 INH 0803 Albuterol Sulfate 3 ML ONCE ONE 01/04 1100 DC 01/04 INH 01/04 1101 1101 Amiodarone HCl 200 MG DAILY 01/05 1000 AC 01/05 PO 0937 Atorvastatin Calcium 10 MG QPM 01/04 2200 AC 01/04 PO 2138 Azithromycin 500 MG ONCE ONE 01/04 1145 DC 01/04 Sodium Chloride 250 ML IV 01/04 1244 1231 Bupropion HCl 300 MG QAM 01/05 1000 AC 01/05 PO 0938 Ceftazidime 0 .STK-MED ONE 01/04 1647 DC .ROUTE Ceftazidime 2,000 MG IQ8 01/04 1600 AC 01/05 IV 0754 Ceftriaxone Sodium 1,000 MG DAILY 01/05 1000 CAN IV Ceftriaxone Sodium 0 .STK-MED ONE 01/04 1152 DC .ROUTE Ceftriaxone Sodium 1,000 MG ONCE ONE 01/04 1145 DC 01/04 IV 01/04 1146 1211 Dipyridamole/Aspirin 1 CAP BID 01/04 2200 AC 01/05 PO 0937 Doxycycline Hyclate 100 MG Q12 01/04 2200 CAN Sodium Chloride 100 ML IV Escitalopram Oxalate 10 MG QPM 01/04 2200 AC 01/04 PO 2138 Famotidine 20 MG TIDPRN PRN 01/04 1600 AC PO Furosemide 20 MG DAILY 01/05 1000 AC 01/05 PO 0937 Furosemide 20 MG ONCE ONE 01/04 2145 DC 01/04 IV 01/04 2148 Furosemide 0 .STK-MED ONE 01/04 1228 DC IV Furosemide 40 MG ONCE ONE 01/04 1215 DC 01/04 IV 01/04 1216 1231 Hydroxychloroquine 200 MG BID 01/04 2200 AC 01/05 Sulfate PO 0937 Ibuprofen 800 MG TIDPRN PRN 01/04 1600 AC PO Ibuprofen 600 MG Q6P PRN 01/04 1530 CAN PO Ipratropium [place] 2.5 ML TID 01/05 1000 AC 01/05 INH 0803 Ipratropium [place] 2.5 ML ONCE ONE 01/04 1100 DC 01/04 INH 01/04 1101 1101 Lorazepam 0.5 MG DAILY NEEDED PRN 01/04 1515 AC PO 01/11 1514 Methylprednisolone 125 MG ONCE ONE 01/04 1200 DC 01/04 IV 01/04 1201 1211 Methylprednisolone 0 .STK-MED ONE 01/04 1156 DC .ROUTE Metoprolol Succinate 25 MG QAM 01/05 1000 AC 01/05 PO 0938 Morphine Sulfate 1 MG Q6-PRN PRN 01/04 1530 AC IV Non-Formulary 0 SEE ADMIN CRITERIA 01/04 1515 CAN Medication ANY Potassium Chloride 40 MEQ ONCE ONE 01/05 0800 DC 01/05 PO 01/05 0801 0937 Prednisone 5 MG DAILY 01/05 1000 AC 01/05 PO 0938 Pregabalin 75 MG BID 01/04 2200 AC 01/05 PO 0937 Sodium Chloride 1,000 ML BOLUS ONE 01/04 1515 DC 01/04 IV 01/04 1614 1515 Vancomycin HCl 1,250 MG Q12 01/05 1000 AC 01/05 Dextrose/Water 250 ML IV 0951 Vancomycin HCl 1,250 MG Q12H 01/04 1900 DC 01/04 Dextrose/Water 250 ML IV 2220 Results Last 48 Hrs of Labs/Mics: Laboratory Tests 01/05/17 0615: Anion Gap 8, Estimated GFR > 60, BUN/Creatinine Ratio 22.2, PT 40.0 H, INR 3.86 H, CBC w Diff MAN DIFF ORDERED, RBC 2.91 L, MCV 87.3, MCH 28.0, RDW 17.9 H, MPV 7.6, Gran % 91.3 H, Lymphocytes % 4.1 L, Monocytes % 4.2, Eosinophils % 0, Basophils % 0.4, Absolute Granulocytes 17.1 H, Absolute Lymphocytes 0.8 L, Absolute Monocytes 0.8 H, Absolute Eosinophils 0, Absolute Basophils 0.1, Platelet Estimate VERIFIED BY SMEAR, Polychromasia 1+, Anisocytosis 1+, PUBS MCHC 32.0 L 01/05/17 0347: Lactic Acid Cancelled 01/05/17 0105: Lactic Acid 1.2 01/04/17 2325: Troponin I 0.04 01/04/172229: Urine Color YEL, Urine Clarity CLEAR, Urine pH 6.0, Ur Specific [place] 1.015, Urine Protein NEG, Urine Ketones NEG, Urine Nitrite NEG, Urine Bilirubin NEG, Urine Urobilinogen 0.2, Ur Leukocyte Esterase NEG, Ur Microscopic EXAM NOT REQUIRED, Urine Hemoglobin NEG, Urine Glucose NEG 01/04/17 1950: Lactic Acid 2.7 H 01/04/17 1657: Lactic Acid 2.5 H, Troponin I 0.07 01/04/17 1411: Lactic Acid 2.8 H 01/04/17 1130: pH 7.48 H, pCO2 28 L, pO2 68 L, HCO3 20 L, ABG O2 Sat (Measured) 92.0 L, Carboxyhemoglobin 1.1 L, O2 Concentration % 5L, O2 Delivery Method NC, Phlebotomy Draw Site RIGHT BRACHIAL 01/04/17 1100: Anion Gap 9, Estimated GFR > 60, BUN/Creatinine Ratio 23.8, Glucose 100 H, Lactic Acid 2.4 H, Calcium 9.4, Total Bilirubin 0.9, AST 32, ALT 30, Alkaline Phosphatase 71, Troponin I 0.08, Gmc-G-[id number] Pept 5630 H, Total Protein 6.0 L, Albumin 3.4 L, Globulin 2.6, Albumin/Globulin Ratio 1.3, PT 59.9 *H, INR 5.80 *H, APTT 48 H, CBC w Diff MAN DIFF ORDERED, RBC 3.20 L, MCV 86.6, MCH 28.3, RDW 17.7 H, MPV 6.9 L, Gran % 88.0 H, Lymphocytes % 7.3 L, Monocytes % 4.3, Eosinophils % 0, Basophils % 0.4, Absolute Granulocytes 14.3 H, Segmented Neutrophils 91 H, Band Neutrophils 2, Absolute Lymphocytes 1.2, Lymphocytes 3 L, Monocytes 3, Absolute Monocytes 0.7 H, Absolute Eosinophils 0, Basophils 1, Absolute Basophils 0.1, Platelet Estimate VERIFIED BY SMEAR, Normocytic RBCs VERIFIED, Normochromic RBCs VERIFIED, PUBS MCHC 32.7 L Microbiology 01/04 2230 URINE ROUT: Legionella Antigen - COMP 01/04 2230 URINE ROUT: Streptococcus pneumoniae Antigen (M - COMP 01/04 1635 NASOPHARYN: Influenza Virus A & B Rapid Smear - COMP Recent Imaging Studies: CT scan of the chest: 1. Diffuse bilateral opacities appear more groundglass and extend to the periphery on the current examination. There are multiple differential possibilities. Given the clinical, infection is a likely possibility. This appearance can be seen with opportunistic infection like PCP, or diffuse pneumonias. Noninfectious etiologies include cardiogenic or noncardiogenic edema. Follow-up CT chest after treatment recommended. 2. Small bilateral pleural effusions. 3. Mediastinal lymphadenopathy may represent reactive change. However, close monitoring is recommended. 4. Nonobstructing calculus upper pole left kidney. Assessment/Plan Assessment/Plan Assessment: 1. Bicuspid aortic valve 2. Severe aortic stenosis 3. Mild to moderate mitral regurgitation and mild to moderate mitral stenosis 4. History of CVA 5. Acute diastolic heart failure 6. History of paroxysmal atrial fibrillation with supratherapeutic INR 7. Possible pneumonia Plan: * IV Lasix 20 mg every 12 hours * Monitor input and output with daily weights * Agree with IV antibiotics for pneumonia * Hold warfarin for elevated INR, and recheck INR daily * Check basic metabolic profile daily * Echocardiogram pending * Evaluation for aortic valve replacement to be done as outpatient Continue telemetry? Yes
[2017-01-05 16:12] VITALS: BP 93/60
--- NOTE | 2017-01-05 17:03 | PN- Pulmonary ---
Subjective HPI/Critical Care Issues: pt seen and examined feels much better wbc 18 on high flow o2 Objective Current Medications: Current Medications Sig/Lico Start time Last Medication Dose Route Stop Time Status Admin Acetaminophen 650 MG Q6P PRN 01/04 1530 AC 01/05 PO 1134 Albuterol Sulfate 3 ML TID 01/05 1000 AC 01/05 INH 1452 Amiodarone HCl 200 MG DAILY 01/05 1000 AC 01/05 PO 0937 Atorvastatin Calcium 10 MG QPM 01/04 2200 AC 01/04 PO 2138 Bupropion HCl 300 MG QAM 01/05 1000 AC 01/05 PO 0938 Ceftazidime 1,000 MG IQ8 01/05 1600 AC 01/05 IV 1646 Ceftazidime 2,000 MG IQ8 01/04 1600 DC 01/05 IV 0754 Dipyridamole/Aspirin 1 CAP BID 01/04 2200 AC 01/05 PO 0937 Escitalopram Oxalate 10 MG QPM 01/04 2200 AC 01/04 PO 2138 Famotidine 20 MG TIDPRN PRN 01/04 1600 AC PO Furosemide 20 MG 7:30 AM, & 4:30 PM 01/05 1630 AC 01/05 IV 1659 Furosemide 20 MG DAILY 01/05 1000 DC 01/05 PO 0937 Furosemide 20 MG ONCE ONE 01/04 2145 DC 01/04 IV 01/04 2146 2138 Hydroxychloroquine 200 MG BID 01/04 2200 AC 01/05 Sulfate PO 0937 Ibuprofen 800 MG TIDPRN PRN 01/04 1600 AC PO Ipratropium [place] 2.5 ML TID 01/05 1000 AC 01/05 INH 1453 Lorazepam 0.5 MG DAILY NEEDED PRN 01/04 1515 AC PO 01/11 1514 Metoprolol Succinate 25 MG QAM 01/05 1000 AC 01/05 PO 0938 Morphine Sulfate 1 MG Q6-PRN PRN 01/04 1530 AC IV Patient Medication 1 ED .STK-MED ONE 01/05 1349 DC Teaching ED 01/05 1350 Potassium Chloride 40 MEQ ONCE ONE 01/05 0800 DC 01/05 PO 01/05 0801 0937 Prednisone 5 MG DAILY 01/05 1000 AC 01/05 PO 0938 Pregabalin 75 MG BID 01/04 2200 AC 01/05 PO 0937 Vancomycin HCl 1,250 MG Q12 01/05 1000 AC 01/05 Dextrose/Water 250 ML IV 0951 Vancomycin HCl 1,250 MG Q12H 01/04 1900 DC 01/04 Dextrose/Water 250 ML IV 2220 Vital Signs & I&O Last 24 Hrs of Vitals and I&O: Vital Signs Date Time Temp Pulse Resp B/P Pulse O2 O2 Flow FiO2 Ox Delivery Rate 01/05 1612 98.1 83 22 93/60 95 Nasal 60% Cannula 01/05 1455 92 Nasal 60% Cannula 01/05 1105 Nasal 60% Cannula 01/05 0938 102/62 01/05 0937 102/62 01/05 0829 98.8 93 22 102/62 95 Nasal 50% Cannula 01/05 0806 96 Nasal 55% Cannula 01/05 0800 Nasal 55% Cannula 01/05 0642 91 Nasal 55% Cannula 01/05 0356 91 Nasal 55% Cannula 01/05 0211 Nasal 50% Cannula 01/05 0000 88 Nasal 55% Cannula 01/04 2300 89 Nasal 50% Cannula 01/04 2232 98.1 89 20 98/62 88 Nasal 50% Cannula 01/04 1916 91 Nasal 50% Cannula 01/04 1811 91 Nasal 50% Cannula 01/04 1800 99.0 93 22 109/68 93 Nasal 50% Cannula 01/04 1759 95 Nasal 50% Cannula Intake & Output 01/05 1600 01/05 0800 01/05 0000 Intake Total 970 350 140 Output Total 700 400 Balance 970 -350 -260 Intake, IV 250 300 20 Intake, Oral 720 50 120 Number 1 Bowel Movements Output, Urine 700 400 Patient 165 lb 184 lb 186 lb Weight Exam Other Physical Findings: gen awake and alert heent high flow o2 cvs s1, s2, murmur lungs improved crackles abd soft, bs+ ext no edema Results Last 24 Hrs of Lab Results: Laboratory Tests 01/05/17 0615: Anion Gap 8, Estimated GFR > 60, BUN/Creatinine Ratio 22.2, PT 40.0 H, INR 3.86 H, CBC w Diff MAN DIFF ORDERED, RBC 2.91 L, MCV 87.3, MCH 28.0, RDW 17.9 H, MPV 7.6, Gran % 91.3 H, Lymphocytes % 4.1 L, Monocytes % 4.2, Eosinophils % 0, Basophils % 0.4, Absolute Granulocytes 17.1 H, Absolute Lymphocytes 0.8 L, Absolute Monocytes 0.8 H, Absolute Eosinophils 0, Absolute Basophils 0.1, Platelet Estimate VERIFIED BY SMEAR, Polychromasia 1+, Anisocytosis 1+, PUBS MCHC 32.0 L 01/05/17 0347: Lactic Acid Cancelled 01/05/17 0105: Lactic Acid 1.2 01/04/17 2325: Troponin I 0.04 01/04/17 2230: Urine Color YEL, Urine Clarity CLEAR, Urine pH 6.0, Ur Specific [place] 1.015, Urine Protein NEG, Urine Ketones NEG, Urine Nitrite NEG, Urine Bilirubin NEG, Urine Urobilinogen 0.2, Ur Leukocyte Esterase NEG, Ur Microscopic EXAM NOT REQUIRED, Urine Hemoglobin NEG, Urine Glucose NEG 01/04/17 1950: Lactic Acid 2.7 H Impression/Plan Impression/Plan Impression/Plan: Impression 51 year old woman * dyspnea and hypoxemic respiratory failure * valve related congestive heart failure * improved pulmonary edema * Leukocytosis maybe steroid related, tx with abx in meantime Plan - cardiology follow up - cont abx today, repeat CXR in am - she may require a cardiac cath and valve workup per cardiology - on prednisone for RA - monitor INR DVT prophylaxis at all times
[2017-01-05 22:17] VITALS: BP 90/60
--- NOTE | 2017-01-06 04:25 | NUR ---
PT ON CONTINUOUS O2 MONITORING, SAT FOUND TO BE 80-85% AND PT REPORTS SOB. RESPIRATORY PAGED AND BREATHING TX ADMINSISTERED WITH SOME RELIEF OF SOB REPORTED BY PT. HIGH FLOW INCREASED FROM 60-70%, SAT 85%. WILL CONTINUE TO MONITOR.
--- NOTE | 2017-01-06 06:56 | PN- Housestaff ---
RUSLAN CROOKS,SANTO 01/06/17 0655: Subjective Follow-up For: Severe Aortic stenosis Suspected diffuse pneumonia Subjective: I saw and examined the patient today morning She reports a rough night with significant shortness of breath, 3 episodes of diarrhea. Hypotensive overnight. She denies any chest pain, dizziness, palpitations. She had C.diff in her previous admission - got treated with vancomycin. Review of Systems Constitutional: Reports: see HPI. Objective Last 24 Hrs of Vital Signs/I&O Vital Signs Date Time Temp Pulse Resp B/P Pulse O2 O2 Flow FiO2 Ox Delivery Rate 01/06 0652 93 Nasal 85% Cannula 01/06 0413 84 Nasal 60% Cannula 01/06 0000 91 Nasal 60% Cannula 01/05 2217 99.9 98 20 90/60 97 Nasal Cannula 01/05 2046 94 Nasal 55% Cannula 01/05 1612 98.1 83 22 93/60 95 Nasal 60% Cannula 01/05 1600 Nasal 60% Cannula 01/05 1455 92 Nasal 60% Cannula 01/05 1105 Nasal 60% Cannula 01/05 0938 102/62 01/05 0937 102/62 01/05 0829 98.8 93 22 102/62 95 Nasal 50% Cannula 01/05 0806 96 Nasal 55% Cannula 01/05 0800 Nasal 55% Cannula Intake & Output 01/06 0800 01/06 0000 01/05 1600 Intake Total 100 850 970 Output Total 300 1100 Balance -200 -250 970 Intake, IV 100 250 250 Intake, Oral 600 720 Output, Urine 300 1100 Patient 74.843 kg Weight Physical Exam General Appearance: Alert, Oriented X3, Cooperative Skin: No Rashes, No Breakdown HEENT: Atraumatic, PERRLA, EOMI Neck: Supple Cardiovascular: Normal S1, Normal S2, systolic murmur Lungs: Normal Air Movement, decreased breath sounds at bases Abdomen: Normal Bowel Sounds, Soft, No Tenderness Neurological: Normal Tone, Sensation Intact Extremities: No Clubbing, No Cyanosis, increased swelling/edema over the left leg Vascular: Normal Pulses, Pulses Symmetrical Current Medications: Current Medications Sig/Lico Start time Last Medication Dose Route Stop Time Status Admin Acetaminophen 650 MG Q6P PRN 01/04 1530 AC 01/05 PO 1134 Albuterol Sulfate 3 ML TID 01/05 1000 AC 01/06 INH 1421 Amiodarone HCl 200 MG DAILY 01/05 1000 AC 01/06 PO 1017 Atorvastatin Calcium 10 MG QPM 01/04 2200 AC 01/05 PO 2223 Bupropion HCl 300 MG QAM 01/05 1000 AC 01/06 PO 1018 Ceftazidime 1,000 MG IQ8 01/05 1600 AC 01/06 IV 0814 Dipyridamole/Aspirin 1 CAP BID 01/04 2200 AC 01/06 PO 1017 Escitalopram Oxalate 10 MG QPM 01/04 2200 AC 01/05 PO 2223 Famotidine 20 MG TIDPRN PRN 01/04 1600 AC PO Furosemide 20 MG 7:30 AM, & 4:30 PM 01/05 1630 AC 01/06 IV 0814 Hydroxychloroquine 200 MG BID 01/04 2200 AC 01/06 Sulfate PO 1018 Ibuprofen 800 MG TIDPRN PRN 01/04 1600 AC PO Ipratropium [place] 2.5 ML TID 01/05 1000 AC 01/06 INH 1421 Lactobacillus 1 CAP BID 01/06 0915 AC 01/06 Acidophilus PO 1138 Lorazepam 0.5 MG DAILY NEEDED PRN 01/04 1515 AC PO 01/11 1514 Metoprolol Succinate 25 MG QAM 01/05 1000 AC 01/06 PO 1018 Morphine Sulfate 1 MG Q6-PRN PRN 01/04 1530 AC IV Potassium Chloride 40 MEQ ONCE ONE 01/06 0915 DC 01/06 PO 01/06 0916 1017 Prednisone 5 MG DAILY 01/05 1000 AC 01/06 PO 1018 Pregabalin 75 MG BID 01/04 2200 AC 01/06 PO 1020 Vancomycin HCl 1,250 MG Q12 01/06 2200 AC Dextrose/Water 250 ML IV Vancomycin HCl 1,250 MG Q12 01/06 1000 DC 01/06 Dextrose/Water 250 ML IV 1017 Vancomycin HCl 1,250 MG Q12 01/05 1000 DC 01/05 Dextrose/Water 250 ML IV 2223 Warfarin Sodium 2.5 MG COUMADIN 1700 ONE 01/06 1700 CAN PO 01/06 1701 Last 24 Hrs of Lab/Michael Results Last 24 Hrs of Labs/Mics: Laboratory Tests 01/06/17 0615: Anion Gap 7, Estimated GFR 58 L, BUN/Creatinine Ratio 19.0, PT 29.6 H, INR 2.85 H, CBC w Diff NO MAN DIFF REQ, RBC 2.88 L, MCV 86.3, MCH 27.8, RDW 18.4 H, MPV 7.3 L, Gran % 86.6 H, Lymphocytes % 8.6 L, Monocytes % 4.7, Eosinophils % 0, Basophils % 0.1, Absolute Granulocytes 12.8 H, Absolute Lymphocytes 1.3, Absolute Monocytes 0.7 H, Absolute Eosinophils 0, Absolute Basophils 0, PUBS MCHC 32.2 L Microbiology 01/06 1220 STOOL: Clostridium difficile Toxin A & B - RECD Lines/Diet/Fluids Lines: peripheral lines Assessment/Plan Assessment: Patient is a 51 YO F with PMH significant for HTN, HFpEF, CVA in 2012 secondary to embolization of AV vegeation on Coumadin, rheumatic heart disease, fibromyalgia, seronegative rheumatoid arthritis on prednisone, and recurrent calcium oxalate stones s/p lithotripsy, who presents after a sudden onset of chest pressure and exertional dsypnea associated with flu-like and URI symptoms including sore throat, nasal congestion, nonproductive cough, subjective fever, chills, fatigue, headache, and generalized malaise. She was in her usual state until yesterday when she suddenly these symptoms. # Acute hypoxic respiratory failure - possible health care acquired pneumonia/ Amiodarone side effect. Oxygen satruation on admission 80%, requiring 6L of oxygen via NC. She is not oxygen dependent at home. Currently on high flow oxygen. DDx includes healthcare acquired PNA, heart failure exacerbation/Amiodarone side effect. Patient received ceftraixone, azithro and Solumedrol in the ED * Admit to telemetery unit * septic at the time of admission - lactic acid trended down with 1.2 * On ceftaz and vanco for suspected diffuse pneumonia (admitted in the past 90days) * High flow oxygen (85%) and TRC neb tx as needed * Cough suppresants * CXR today shows worsening of disease in the upper lobes, inflammatory vs infection. * White count appears to be improving on antibiotics - so we will continue IV antibiotics for now as per pulmonology. Sever Aortic Stenosis causing CHF * On IV lasix 20mg BID - monitor BP * Needs replacement soon once stabilized. * ECHO - 0.8cm2 Aortic valve, so needs cath to evaluate for coronary arteries, understand exact size of aortic valve. * Once INR is <2 will start her on IV heparin, holding warfarin at this time. * Nothing by mouth after midnight Wednesday for cardiac catheterization at [facility] with Dr. Cruz on Wednesday * Tentative plans for valve replacement surgery on Wednesday with Dr. Carney Rheumatic heart disease with Mitral insufficiency * ECHO shows Mitral valve thickened. Pyid-hp-khuphyff mitral stenosis. Moderate to mitral regurgitation. * Valve thickneing extending into subvalvular chordal structures. # HFpEF, HTN,prior CVA * prednisone 5mg daily * Continue metorplol succinate (Tpprol XL) 25mg for HTN * Cont home meds Aggrenox 1 cap PO BID and Lipitor 10 mg PO QPM * Appreciate cardio recs # Mental health * Ativan 0.5 mg PO PRN anxiety * Lexapro 10 mg PO QPM # RA, fibromyalgia * Continue plaquenil 200 mg PO BID * Continue lyrica 75 mg PO BID # CHF Diet - Chopped and Thin Liquids # Mild pain pathway # DVT PPx ALPs # Full code. Problem List: 1. Severe aortic stenosis 2. Bicuspid aortic valve 3. Mild mitral stenosis 4. Rheumatic fever with cardiac involvement 5. Hypertension 6. Diarrhea 7. Elevated INR 8. CHF exacerbation 9. Hypoxia Pain Ratin Pain Location: chest pain Pain Goal: Remain pain free Pain Plan: tyelnol prn Tomorrow's Labs & Rationales: cbc to monitor white count bep to monitor electrolytes while on diuretics PT to start heparin MEREDITH HI 01/06/17 0916: Attending MD Review Statement Attending Statement Attending MD Statement: examined this patient, discuss w/resident/PA/EMAIL PRODUCER, agreed w/resident/PA/EMAIL PRODUCER, discussed with family, reviewed EMR data (avail), discussed with nursing, discussed with case mgmt, reviewed images Attending Assessment/Plan: Acute hypoxic respiratory failure 2/2 possible Health care acquired pneumonia vs heart failure NYHA class 3 2/2 severe aortic stenosis a candidate for aortic valve replacement in future, Chest pain rule out ACS serial cardiac enzymes negative for VA, Severe sepsis 2/2 HCAP f/u blood culture x 2, CT chest with contrast differential vast cannot exclude infection, f/u pulmonary. f/u chest xray today, c/w broad spectrum abx, Lactic acidosis 1.2 trended down. Supratherapeutic INR, monitor INR , resume couamdin. Patient does have elevated bnp, watch for fluid overlaod. Lasix use as per cardio. strict i/o, daily weights. f/u cardiology for valvular disease, echo f/u. Patient developed loos e stools, h/o c diff in past, add lactobaciluus. gi/dvt. full code. xray today, c/w broad spectrum abx, Lactic acidosis 1.2 trended down. Supratherapeutic INR, monitor INR , resume couamdin. Patient does have elevated bnp, watch for fluid overlaod. Lasix use as per cardio. strict i/o, daily weights. f/u cardiology for valvular disease, echo f/u. Patient developed loos e stools, h/o c diff in past, add lactobaciluus. gi/dvt. full code.
[2017-01-06 08:00] VITALS: BP 100/60
[2017-01-06 08:08] LABS: ABSOLUTE BASOPHIL COUNT 0 /CUMM (0.0-0.2); ABSOLUTE EOSINOPHIL COUNT 0 /CUMM (0.0-0.7); ABSOLUTE GRANULOCYTE CT 12.8 /CUMM (1.4-6.5); ABSOLUTE LYMPH COUNT 1.3 /CUMM (1.2-3.4); ABSOLUTE MONOCYTE COUNT 0.7 /CUMM (0.10-0.60); BASOPHIL % 0.1 % (0.0-2.0); EOSINOPHIL % 0 % (0-5); HEMATOCRIT 24.8 % (37-47); MEAN CORPUSCULAR HGB 27.8 PG (27.0-31.0); MEAN CORPUSCULAR HGB CONC 32.2 G/DL (33.0-37.0); MEAN CORPUSCULAR VOLUME 86.3 FL (81.0-99.0); MEAN PLATELET VOLUME 7.3 FL (7.4-10.4); PLATELET COUNT 385 /CUMM (130-400); RBC DISTRIBUTION WIDTH 18.4 % (11.5-14.5); RED BLOOD CELL CT 2.88 /CUMM (4.20-5.40); WHITE BLOOD CELL COUNT 14.8 /CUMM (4.8-10.8)
[2017-01-06 08:27] LABS: PT 29.6 SEC (9.4-12.5)
[2017-01-06 08:51] LABS: GRANULOCYTE % 86.6 % (42.2-75.2)
--- NOTE | 2017-01-06 11:08 | RADIOLOGY REPORT ---
EXAMINATION: XR PORTABLE CHEST CLINICAL INFORMATION: Worsening desaturation despite on IV antibiotics. COMPARISON: Multiple priors, most recently 01/04/2017. TECHNIQUE: Portable AP view of the chest was obtained. FINDINGS: Cardiac leads overlie the chest. Low lung volumes. Diffuse bilateral airspace opacities are again noted, with mild worsening in the upper lungs. No pleural effusion or pneumothorax. The cardiomediastinal silhouette is unchanged. No acute osseous abnormality. IMPRESSION: Diffuse bilateral airspace opacities, with slight worsening in the upper lungs. The appearance remains nonspecific and could represent pulmonary edema versus infectious process.
--- NOTE | 2017-01-06 11:27 | PN- Pulmonary ---
Subjective HPI/Critical Care Issues: Patient seen and examined. No chest pain, high flow oxygen. No nausea, vomiting, diarrhea or constipation. Afebrile and hemodynamically stable. Objective Current Medications: Current Medications Sig/Lico Start time Last Medication Dose Route Stop Time Status Admin Acetaminophen 650 MG Q6P PRN 01/04 1530 AC 01/05 PO 1134 Albuterol Sulfate 3 ML TID 01/05 1000 AC 01/06 INH 0933 Amiodarone HCl 200 MG DAILY 01/05 1000 AC 01/06 PO 1017 Atorvastatin Calcium 10 MG QPM 01/04 2200 AC 01/05 PO 2223 Bupropion HCl 300 MG QAM 01/05 1000 AC 01/06 PO 1018 Ceftazidime 1,000 MG IQ8 01/05 1600 AC 01/06 IV 0814 Ceftazidime 2,000 MG IQ8 01/04 1600 DC 01/05 IV 0754 Dipyridamole/Aspirin 1 CAP BID 01/04 2200 AC 01/06 PO 1017 Escitalopram Oxalate 10 MG QPM 01/04 2200 AC 01/05 PO 2223 Famotidine 20 MG TIDPRN PRN 01/04 1600 AC PO Furosemide 20 MG 7:30 AM, & 4:30 PM 01/05 1630 AC 01/06 IV 0814 Hydroxychloroquine 200 MG BID 01/04 2200 AC 01/06 Sulfate PO 1018 Ibuprofen 800 MG TIDPRN PRN 01/04 1600 AC PO Ipratropium [place] 2.5 ML TID 01/05 1000 AC 01/06 INH 0933 Lactobacillus 1 CAP BID 01/06 0915 AC Acidophilus PO Lorazepam 0.5 MG DAILY NEEDED PRN 01/04 1515 AC PO 01/11 1514 Metoprolol Succinate 25 MG QAM 01/05 1000 AC 01/06 PO 1018 Morphine Sulfate 1 MG Q6-PRN PRN 01/04 1530 AC IV Patient Medication 1 ED .STK-MED ONE 01/05 1349 DC Teaching ED 01/05 1350 Potassium Chloride 40 MEQ ONCE ONE 01/06 0915 DC 01/06 PO 01/06 0916 1017 Prednisone 5 MG DAILY 01/05 1000 AC 01/06 PO 1018 Pregabalin 75 MG BID 01/04 2200 AC 01/06 PO 1020 Vancomycin HCl 1,250 MG Q12 01/06 1000 AC 01/06 Dextrose/Water 250 ML IV 1017 Vancomycin HCl 1,250 MG Q12 01/05 1000 DC 01/05 Dextrose/Water 250 ML IV 2223 Warfarin Sodium 2.5 MG COUMADIN 1700 ONE 01/06 1700 AC PO 01/06 1701 Vital Signs & I&O Last 24 Hrs of Vitals and I&O: Vital Signs Date Time Temp Pulse Resp B/P Pulse O2 O2 Flow FiO2 Ox Delivery Rate 01/06 1018 100/70 01/06 1017 100/70 01/06 0950 92 Nasal 60% Cannula 01/06 0800 Nasal 85% Cannula 01/06 0800 98.7 88 20 100/60 96 Nasal Cannula 01/06 0728 95 Nasal 85% Cannula 01/06 0652 93 Nasal 85% Cannula 01/06 0413 84 Nasal 60% Cannula 01/06 0000 91 Nasal 60% Cannula 01/05 2217 99.9 98 20 90/60 97 Nasal Cannula 01/05 2046 94 Nasal 55% Cannula 01/05 1612 98.1 83 22 93/60 95 Nasal 60% Cannula 01/05 1600 Nasal 60% Cannula 01/05 1455 92 Nasal 60% Cannula Intake & Output 01/06 1600 01/06 0800 01/06 0000 Intake Total 100 850 Output Total 300 1100 Balance -200 -250 Intake, IV 100 250 Intake, Oral 600 Output, Urine 300 1100 Patient 179 lb Weight Exam Other Physical Findings: gen awake and alert heent high flow o2 cvs s1, s2, murmur lungs improved crackles abd soft, bs+ ext no edema Results Last 24 Hrs of Lab Results: Laboratory Tests 01/06/17 0615: Anion Gap 7, Estimated GFR 58 L, BUN/Creatinine Ratio 19.0, PT 29.6 H, INR 2.85 H, CBC w Diff NO MAN DIFF REQ, RBC 2.88 L, MCV 86.3, MCH 27.8, RDW 18.4 H, MPV 7.3 L, Gran % 86.6 H, Lymphocytes % 8.6 L, Monocytes % 4.7, Eosinophils % 0, Basophils % 0.1, Absolute Granulocytes 12.8 H, Absolute Lymphocytes 1.3, Absolute Monocytes 0.7 H, Absolute Eosinophils 0, Absolute Basophils 0, PUBS MCHC 32.2 L Impression/Plan Impression/Plan Impression/Plan: Impression 51 year old woman * dyspnea and hypoxemic respiratory failure * valve related congestive heart failure * improved pulmonary edema * Leukocytosis maybe steroid related, tx with abx in meantime Plan - cardiology follow up - cont abx course, wbc improved, max 7 days - she may require a cardiac cath and valve workup per cardiology - on prednisone for RA - monitor INR DVT prophylaxis at all times
--- NOTE | 2017-01-06 12:17 | PN- Cardiology ---
Subjective Subjective: Slow clinical improvement. She remains on high flow oxygen. No other new cardiac symptoms. Overall she is feeling better. Extended discussion with the patient and her about upcoming plans for valve replacement surgery. Objective Vital Signs and I&Os Vital Signs Date Time Temp Pulse Resp B/P Pulse O2 O2 Flow FiO2 Ox Delivery Rate 01/06 1134 91 Nasal 60% Cannula 01/06 1018 100/70 01/06 1017 100/70 01/06 0950 92 Nasal 60% Cannula 01/06 0800 Nasal 85% Cannula 01/06 0800 98.7 88 20 100/60 96 Nasal Cannula 01/06 0728 95 Nasal 85% Cannula 01/06 0652 93 Nasal 85% Cannula 01/06 0413 84 Nasal 60% Cannula 01/06 0000 91 Nasal 60% Cannula 01/05 2217 99.9 98 20 90/60 97 Nasal Cannula 01/05 2046 94 Nasal 55% Cannula 01/05 1612 98.1 83 22 93/60 95 Nasal 60% Cannula 01/05 1600 Nasal 60% Cannula 01/05 1455 92 Nasal 60% Cannula Intake & Output 01/06 1600 01/06 0800 01/06 0000 01/05 1600 01/05 0800 01/05 0000 Intake Total 100 850 970 350 140 Output Total 300 1100 700 400 Balance -200 -250 970 -350 -260 Intake, IV 100 250 250 300 20 Intake, Oral 600 720 50 120 Number 1 Bowel Movements Output, Urine 300 1100 700 400 Patient 179 lb 165 lb 184 lb 186 lb Weight Physical Exam: Gen: The patient is in no acute distress; alert and oriented 3 HEENT: Normal Neck: Supple with no JVD, no masses, and no thyromegaly; bilateral carotid delay with bilateral transmitted murmurs Lungs: Bilateral rales with normal respiratory effort Heart: RRR, S1, S2, 3/6 systolic murmur. Abdomen: Soft, nontender, no masses. No hepatomegaly. No splenomegaly Extremities: No clubbing or cyanosis. Normal muscle strength in the upper and lower extremities Skin: Normal Neurologic: Nonfocal Current Medications: Current Medications Sig/Lico Start time Last Medication Dose Route Stop Time Status Admin Acetaminophen 650 MG Q6P PRN 01/04 1530 AC 01/05 PO 1134 Albuterol Sulfate 3 ML TID 01/05 1000 AC 01/06 INH 0933 Amiodarone HCl 200 MG DAILY 01/05 1000 AC 01/06 PO 1017 Atorvastatin Calcium 10 MG QPM 01/04 2200 AC 01/05 PO 2223 Bupropion HCl 300 MG QAM 01/05 1000 AC 01/06 PO 1018 Ceftazidime 1,000 MG IQ8 01/05 1600 AC 01/06 IV 0814 Ceftazidime 2,000 MG IQ8 01/04 1600 DC 01/05 IV 0754 Dipyridamole/Aspirin 1 CAP BID 01/04 2200 AC 01/06 PO 1017 Escitalopram Oxalate 10 MG QPM 01/04 2200 AC 01/05 PO 2223 Famotidine 20 MG TIDPRN PRN 01/04 1600 AC PO Furosemide 20 MG 7:30 AM, & 4:30 PM 01/05 1630 AC 01/06 IV 0814 Hydroxychloroquine 200 MG BID 01/04 2200 AC 01/06 Sulfate PO 1018 Ibuprofen 800 MG TIDPRN PRN 01/04 1600 AC PO Ipratropium [place] 2.5 ML TID 01/05 1000 AC 01/06 INH 0933 Lactobacillus 1 CAP BID 01/06 0915 AC 01/06 Acidophilus PO 1138 Lorazepam 0.5 MG DAILY NEEDED PRN 01/04 1515 AC PO 01/11 1514 Metoprolol Succinate 25 MG QAM 01/05 1000 AC 01/06 PO 1018 Morphine Sulfate 1 MG Q6-PRN PRN 01/04 1530 AC IV Patient Medication 1 ED .STK-MED ONE 01/05 1349 DC Teaching ED 01/05 1350 Potassium Chloride 40 MEQ ONCE ONE 01/06 0915 DC 01/06 PO 01/06 0916 1017 Prednisone 5 MG DAILY 01/05 1000 AC 01/06 PO 1018 Pregabalin 75 MG BID 01/04 2200 AC 01/06 PO 1020 Vancomycin HCl 1,250 MG Q12 01/06 1000 AC 01/06 Dextrose/Water 250 ML IV 1017 Vancomycin HCl 1,250 MG Q12 01/05 1000 DC 01/05 Dextrose/Water 250 ML IV 2223 Warfarin Sodium 2.5 MG COUMADIN 1700 ONE 01/06 1700 CAN PO 01/06 1701 Results Last 48 Hrs of Labs/Mics: Laboratory Tests 01/06/17 0615: Anion Gap 7, Estimated GFR 58 L, BUN/Creatinine Ratio 19.0, PT 29.6 H, INR 2.85 H, CBC w Diff NO MAN DIFF REQ, RBC 2.88 L, MCV 86.3, MCH 27.8, RDW 18.4 H, MPV 7.3 L, Gran % 86.6 H, Lymphocytes % 8.6 L, Monocytes % 4.7, Eosinophils % 0, Basophils % 0.1, Absolute Granulocytes 12.8 H, Absolute Lymphocytes 1.3, Absolute Monocytes 0.7 H, Absolute Eosinophils 0, Absolute Basophils 0, PUBS MCHC 32.2 L 01/05/17 0615: Anion Gap 8, Estimated GFR > 60, BUN/Creatinine Ratio 22.2, PT 40.0 H, INR 3.86 H, CBC w Diff MAN DIFF ORDERED, RBC 2.91 L, MCV 87.3, MCH 28.0, RDW 17.9 H, MPV 7.6, Gran % 91.3 H, Lymphocytes % 4.1 L, Monocytes % 4.2, Eosinophils % 0, Basophils % 0.4, Absolute Granulocytes 17.1 H, Absolute Lymphocytes 0.8 L, Absolute Monocytes 0.8 H, Absolute Eosinophils 0, Absolute Basophils 0.1, Platelet Estimate VERIFIED BY SMEAR, Polychromasia 1+, Anisocytosis 1+, PUBS MCHC 32.0 L 01/05/17 0347: Lactic Acid Cancelled 01/05/17 0105: Lactic Acid 1.2 01/04/17 2325: Troponin I 0.04 01/04/172229: Urine Color YEL, Urine Clarity CLEAR, Urine pH 6.0, Ur Specific [place] 1.015, Urine Protein NEG, Urine Ketones NEG, Urine Nitrite NEG, Urine Bilirubin NEG, Urine Urobilinogen 0.2, Ur Leukocyte Esterase NEG, Ur Microscopic EXAM NOT REQUIRED, Urine Hemoglobin NEG, Urine Glucose NEG 01/04/17 1950: Lactic Acid 2.7 H 01/04/17 1657: Lactic Acid 2.5 H, Troponin I 0.07 01/04/17 1411: Lactic Acid 2.8 H Microbiology 01/04 2230 URINE ROUT: Legionella Antigen - COMP 01/04 2230 URINE ROUT: Streptococcus pneumoniae Antigen (M - COMP 01/04 2230 URINE ROUT: Urine Culture - COMP 01/04 1635 NASOPHARYN: Influenza Virus A & B Rapid Smear - COMP Assessment/Plan Assessment/Plan Assessment: 1. 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 Mild to moderate mitral regurgitation and mild to moderate mitral stenosis 3. History of CVA 4. Acute diastolic heart failure 5. History of paroxysmal atrial fibrillation with supratherapeutic INR 6. Possible pneumonia Recommendations: -Echocardiogram reviewed. The patient has severe aortic stenosis with an estimated valve area of 0.8 cm. She has evidence of rheumatic mitral valve disease with mild to moderate mitral insufficiency and mitral stenosis with an estimated mitral valve area 1.6 cm. -Extended discussion held with the patient and her . For now, I would favor keeping the patient in the hospital for more aggressive diuresis and optimization of medical status. -Nothing by mouth after midnight Wednesday for cardiac catheterization at [facility] with Dr. Crzu on Wednesday -Tentative plans for valve replacement surgery on Wednesday with Dr. Carney -Please hold the patient's warfarin. When the INR is less than or equal to 2.0 please start IV heparin for anticoagulation -Continue diuresis with IV Lasix twice a day -Continue current management as per pulmonary. Continue telemetry? Yes
[2017-01-06 16:27] VITALS: BP 102/60
--- NOTE | 2017-01-06 16:27 | Discharge Summary ---
Visit Information Visit Dates Admission Date: 01/05/17 Discharge Date: 01/11/2017 Hospital Course Course Attending Physician: Dr. 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 Symptoms started suddenly a day before presentation. On arrival the patient was hypoxic with saturation in the mid 80s had significant leukocytosis with a left shift and 91 bands patient was admitted to telemetry floor and we managed her for the following conditions. Acute hypoxic respiratory failure Oxygen satruation on admission 80%, requiring 6L of oxygen via NC. She is not oxygen dependent at home. Children the course of the stay patient oxygen demand increased accordingly 55-80% of high flow oxygen to maintain saturation. Initial thinking was this patient is having healthcare acquired pneumonia that is exacerbating the shortness of breath. She was started on vancomycin and ceftazidine. Because of low saturation and periods of desaturation throughout the course of the stay the patient was kept on continuous pulse oximetry. She continued to receive total respiratory care and the nebulization. Oxygen demand decreased and currently the patient is on 4 L maintaining good saturation. Sepsis most likely 2/2 healthcare acquired pneumonia/gram-negative Patient presents meets signs of SIRS (leukocytosis, tachycardia and tachypnea). Most likely infectious source is pneumonia at this point. CXR (01/04): Findings are most suggestive of pulmonary edema. Infectious process not fully excluded. Patient was provided with Ceftin has been and vancomycin for what we assumed to be hospital acquired gram-negative pneumonia. There was no growth from culture. Patient to finish 7 days of antibiotics tomorrow. HFpEF, HTN, Rheumatic hert disease, prior CVA Repeated echocardiogram showed outtake area about 0.8 cm which corresponds to severe outlet stenosis. This patient had rheumatic heart disease and the aortic stenosis might be complication of the disease. Patient has history of CVA and was on warfarin. Once it was determined that this patient will benefit from aortic valve replacement, warfarin was put on hold and started on heparin drip. Her integrity assessor Dr. Lira was involved throughout the course of the stay. Patient will need cardiac catheterization to assess coronary vessels before she can get out valve replacement. We are transferring the patient to [facility] for cardiac catheterization and subsequent aortic valve replacement. This patient will need to be restarted back on warfarin which is currently on hold due to IV heparin. Mental health Patient has history of anxiety and depression. We maintained the patient on her home medication Ativan 0.5 mg PO PRN anxiety and Lexapro 10 mg PO QPM. RA, fibromyalgia Sent has history of rheumatoid arthritis and fibromyalgia. She was kept on plaquenil 200 mg PO BID and lyrica 75 mg PO BID for the conditions. Her clinical situations remained stable during the course of this admission. We are transfering the patient to continue with his home medication of the same level. Acute kidney injury Patient received IV Lasix to help her with her heart failure presentation. Initially she had normal renal function creatinine and a BUN. After multiple doses of IV Lasix patient renal function started deteriorating with creatinine increasing to 1.2 and later at 1.4. Multiple doses of Lasix were held to try to relieve the kidney to resume normal renal function. The patient was seen by instrument designer Dr. Collier who recommended discontinuation of nephrotoxic medications daily assessment of renal function and confirmation of the state of renal function prior to his transfer for cardiac catheterization. Continue to avoid nephrotoxic medications, will need close follow-up of renal function post cardiac catheterization and adequate hydration to reduce possibility of developing permanent renal damage from the contrast. Anemia Patient was admitted with a low H&H 9.11/07. She experienced dizziness drop in hemoglobin to lowest level of 7.3 at which time the patient was more dyspneic and requiring more high flow oxygen and because of that she received one unit of blood with an increase of hemoglobin to 9.3 and significant improvement in shortness of breath. Complications: Acute kidney injury Allergies: Coded Allergies: Sulfa (Sulfonamide Antibiotics) (N/V 01/04/17) Significant Procedures: Echocardiogram 1. This was a limited followup examination performed to better assess the severity of mitral valve disease. 2. Moderate mitral insufficiency is present. 3. The mitral valve anatomy is consistent with rheumatic mitral valve disease with mitral leaflet thickening, commisural fusion, diastolic doming of the anterior leaflet with partial immobilization of the posterior leaflet and evidence of some chordal fusion. 4. By planimetered evaluation; pressure half time and VTI calculations, there is at least mild to moderate mitral stenosis present with an estimated MVA of 1.4 - 1.8 cm2. Severe valvular stenosis is present (PG 80 mmHg; Mg 46 mmHg; SHELBY 0.8 cm2). Pertinent Lab Results: Laboratory Tests 01/11 04 0600 2305 Chemistry Sodium (137 - 145 mmol/L) 138 Potassium (3.5 - 5.1 mmol/L) 4.4 Chloride (98 - 107 mmol/L) 102 Carbon Dioxide (22 - 30 mmol/L) 24 Anion Gap (5 - 16) 13 BUN (7 - 17 mg/dL) 18 H Creatinine (0.5 - 1.0 mg/dL) 1.4 H Estimated GFR (>60 ml/min) 39 L BUN/Creatinine Ratio (7 - 25 %) 12.9 Coagulation APTT (25 - 37 SEC) 59 H 107 *H Hematology CBC w Diff MAN DIFF ORDERED WBC (4.8 - 10.8 /CUMM) 19.4 H RBC (4.20 - 5.40 /CUMM) 3.36 L Hgb (12.0 - 16.0 G/DL) 9.3 L Hct (37 - 47 %) 28.7 L MCV (81.0 - 99.0 FL) 85.5 MCH (27.0 - 31.0 PG) 27.6 RDW (11.5 - 14.5 %) 17.9 H Plt Count (130 - 400 /CUMM) 455 H MPV (7.4 - 10.4 FL) 8.2 Gran % (42.2 - 75.2 %) 84.7 H Lymphocytes % (20.5 - 51.1 %) 10.0 L Monocytes % (1.7 - 9.3 %) 4.3 Eosinophils % (0 - 5 %) 0.6 Basophils % (0.0 - 2.0 %) 0.4 Absolute Granulocytes (1.4 - 6.5 /CUMM) 16.4 H Segmented Neutrophils (42.2 - 75.2 %) 84 H Band Neutrophils (0.0 - 5.0 %) 2 Absolute Lymphocytes (1.2 - 3.4 /CUMM) 1.9 Lymphocytes (20.5 - 51.1 %) 9 L Monocytes (1.7 - 9.3 %) 4 Absolute Monocytes (0.10 - 0.60 /CUMM) 0.8 H Absolute Eosinophils (0.0 - 0.7 /CUMM) 0.1 Absolute Basophils (0.0 - 0.2 /CUMM) 0.1 Myelocytes (0 - 0 %) 1 H Nucleated RBCs (0.0 - 0.0 /100WBC) 2 H Platelet Estimate (ADEQUATE) ADEQUATE Polychromasia 1+ Hypochromic-Microcytic 1+ PUBS MCHC (33.0 - 37.0 G/DL) 32.2 L Toxicology Random Vancomycin (ug/ml) 18.6 04/02 04/02 1537 1109 Coagulation APTT (25 - 37 SEC) 86 H Hematology CBC w Diff NO MAN DIFF REQ WBC (4.8 - 10.8 /CUMM) 15.6 H RBC (4.20 - 5.40 /CUMM) 2.81 L Hgb (12.0 - 16.0 G/DL) 7.6 L Hct (37 - 47 %) 24.0 L MCV (81.0 - 99.0 FL) 85.6 MCH (27.0 - 31.0 PG) 27.2 RDW (11.5 - 14.5 %) 19.0 H Plt Count (130 - 400 /CUMM) 500 H MPV (7.4 - 10.4 FL) 7.8 Gran % (42.2 - 75.2 %) 86.3 H Lymphocytes % (20.5 - 51.1 %) 8.9 L Monocytes % (1.7 - 9.3 %) 3.9 Eosinophils % (0 - 5 %) 0.7 Basophils % (0.0 - 2.0 %) 0.2 Absolute Granulocytes (1.4 - 6.5 /CUMM) 13.4 H Absolute Lymphocytes (1.2 - 3.4 /CUMM) 1.4 Absolute Monocytes (0.10 - 0.60 /CUMM) 0.6 Absolute Eosinophils (0.0 - 0.7 /CUMM) 0.1 Absolute Basophils (0.0 - 0.2 /CUMM) 0 PUBS MCHC (33.0 - 37.0 G/DL) 31.8 L 01/10 01/09 01/09 0700 2215 1008 Chemistry Sodium (137 - 145 mmol/L) 134 L Potassium (3.5 - 5.1 mmol/L) 4.1 Chloride (98 - 107 mmol/L) 100 Carbon Dioxide (22 - 30 mmol/L) 28 Anion Gap (5 - 16) 6 BUN (7 - 17 mg/dL) 23 H Creatinine (0.5 - 1.0 mg/dL) 1.4 H Estimated GFR (>60 ml/min) 39 L BUN/Creatinine Ratio (7 - 25 %) 16.4 Coagulation APTT (25 - 37 SEC) 85 H 67 H Hematology CBC w Diff NO MAN DIFF REQ WBC (4.8 - 10.8 /CUMM) 13.4 H RBC (4.20 - 5.40 /CUMM) 2.71 L Hgb (12.0 - 16.0 G/DL) 7.3 *L Hct (37 - 47 %) 23.1 L MCV (81.0 - 99.0 FL) 85.1 MCH (27.0 - 31.0 PG) 27.1 RDW (11.5 - 14.5 %) 18.7 H Plt Count (130 - 400 /CUMM) 440 H MPV (7.4 - 10.4 FL) 7.7 Gran % (42.2 - 75.2 %) 82.3 H Lymphocytes % (20.5 - 51.1 %) 12.3 L Monocytes % (1.7 - 9.3 %) 5.0 Eosinophils % (0 - 5 %) 0 Basophils % (0.0 - 2.0 %) 0.4 Absolute Granulocytes (1.4 - 6.5 /CUMM) 11.0 H Absolute Lymphocytes (1.2 - 3.4 /CUMM) 1.6 Absolute Monocytes (0.10 - 0.60 /CUMM) 0.7 H Absolute Eosinophils (0.0 - 0.7 /CUMM) 0 Absolute Basophils (0.0 - 0.2 /CUMM) 0.1 PUBS MCHC (33.0 - 37.0 G/DL) 31.8 L Toxicology Vancomycin Trough (10.0 - 20.0 ug/mL) 28.5 H Random Vancomycin (ug/ml) 14.9 Disposition Summary Disposition Principal Diagnosis: CHF exacerbation Severe aortic stenosis DAO Additional Diagnosis: Depression Anxiety Rheumatoid arthritis Fibromyalgia Discharge Disposition: other general hospital Discharge Instructions General Discharge Information Code Status: Full Code Patient's Diet: Heart health diet Patient's Activity: As Tolerated Follow-Up Instructions/Appts: Please call and make a follow-up with your primary care physician within one week after discharge. Please call and make a follow-up with your integrity assessor Dr. Lira within 1 week after discharge Medications at Discharge Discharge Medications: Stop taking the following medications: Warfarin Sodium (Warfarin Sodium) 5 MG TABLET ORAL WEDNESDAY, WEDNESDAY AND WEDNESDAY Qty = 90 Warfarin Sodium (Coumadin) 2.5 MG TABLET ORAL As Directed Ibuprofen/Famotidine (Duexis 800-26.6 MG Tablet) 800 MG-26.6 MG TABLET ORAL THREE TIMES DAILY as needed for RA Furosemide (Furosemide) 20 MG TABLET ORAL DAILY Continue taking these medications: Dipyridamole W/ Aspirin (Aggrenox 25 MG-200 MG Capsule) 25 MG-200 MG CPMP.12HR 1 Capsule ORAL TWICE DAILY Comments: not taken Metoprolol Succinate (Metoprolol Succinate) 25 MG TAB 1 Tablet ORAL Every Morning Qty = 90 Comments: not taken Atorvastatin Calcium (Atorvastatin Calcium) 10 MG TABLET 1 Tablet ORAL Every night Qty = 30 Comments: Last Taken:12/08/16 Time:9pm Prednisone (Prednisone) 5 MG TABLET 1 Tablet ORAL DAILY Qty = 60 Comments: Last Taken:12/09/16 Time:10am Hydroxychloroquine Sulfate (Hydroxychloroquine Sulfate) 200 MG TABLET 1 Tablet ORAL TWICE DAILY Qty = 60 Comments: Last Taken:12/09/16 Time:10am Pregabalin (Lyrica) 75 MG CAPSULE 1 Capsule ORAL TWICE DAILY Qty = 60 Comments: PER PT Bupropion HCl (Bupropion XL) 300 MG TAB.ER.24H 1 Tablet ORAL Every Morning Qty = 30 Comments: Last Taken:3/1/17 Time:10am Escitalopram Oxalate (Lexapro) 10 MG TABLET 1 Tablet ORAL Every night Comments: Last Taken:12/09/16 Time:10am Lorazepam (Lorazepam) 0.5 MG TABLET 1 Tablet ORAL DAILY as needed for ANXIETY Qty = 30 Comments: Last Taken:12/08/16 Time:9pm Amiodarone HCl (Amiodarone HCl) 200 MG TABLET 1 Tablet ORAL DAILY Start taking the following new medications: Furosemide (Furosemide) 10 MG/ML VIAL 20 Milligram INTRAVEN 7:30AM & 4:30PM Qty = 4 No Refills Heparin (Heparin-1/2NS 25,000 Units/500) 25,000 UNIT/500 ML (50 UNIT/ML) IV.SOLN 1 Bag INTRAVEN CONTINUOUS INFUSION Qty = 1 No Refills Copies To: NED CROOKS,MISHA; LINN CROOKS,Jamia NORTON; KATHLEEN CROOKS,JESSICA
--- NOTE | 2017-01-06 18:56 | ECHOCARDIOGRAM REPORT ---
JAISON VELASQUEZ Age: 51 : 1965 Gender: F Exam Date: 01/04/2017 14:41 Exam Location: ER Ht (in): 64 Wt (lb): 186 BSA: 1.98 BP: 110 / 63 Ordering Physician: DONITA MCDERMOTT MD Referring Physician: Jacek Lira MD Technologist: Melody Madera RENA Room Number: [id number] Indications: CHEST PAIN Rhythm: Sinus Technical Quality: Fair FINDINGS Left Ventricle Normal size left ventricle. No obvious regional wall motion abnormalities. Left ventricular wall thickness mildly increased. Normal left ventricular ejection fraction estimated at 55-60%. Abnormal relaxation filling pattern of the left ventricle for age (stage 1 diastolic dysfunction). Right Ventricle Mild right ventricular dilatation. Right Atrium Right atrial dilatation. Left Atrium Moderate to severe left atrial dilatation. Mitral Valve Mitral valve thickened. [id number] mitral stenosis. Moderate mitral regurgitation. Aortic Valve Diffuse thickening of the aortic valve cusps with reduced excursion. Severe aortic stenosis. Tricuspid Valve Tricuspid valve not well visualized, grossly normal. Mild tricuspid regurgitation. Right ventricular systolic pressure estimated to be elevated at 55 mmHg. Pulmonic Valve Pulmonic valve not well visualized, grossly normal. Pericardium Small pericardial effusion. Great Vessels Normal size aortic root and proximal ascending aorta. CONCLUSIONS 1. Fibrocalcific degeneration is present in the aortic valve. THe valve appears to be bicuspid, however, the possibility of rheumatic aortic valve disease with commisural fusion cannot be excluded. Severe valvular stenosis is present (PG 80 mmHg; Mg 46 mmHg; SHELBY 0.8 cm2). 2. Rheumatic mitral valve disease is present with leaflet thickening extending into the subvalvular chordal structures. MItral stenosis is present with moderate mitral insufficiency and moderate to moderately severe left atrial enlargment. The severity of mitral stenosis was not accurately assessed on this examination (PDG 31 mmHg; MDG 16 mmHg; MVA ?) 3. A very small pericardial effusion is present. 4. The left ventricular chamber size is normal. Mild concentric hypertrophy is present with an ejection fraction of 55-60% and no obvious wall motion abnormalities. 5. MIld enlargement of the right heart chambers is present with mild tricuspid insufficiency and an estimated RV systolic pressure of 55 mmHg. Jacek Lira M.D. (Electronically Signed) Final Date: 06 January 2017 18:55 MEASUREMENTS (Male / Female) Normal Values 2D ECHO LV Diastolic Diameter PLAX 4.8 cm 4.2 - 5.9 / 3.9 - 5.3 cm LV Systolic Diameter PLAX 2.7 cm 2.1 - 4.0 cm LV Fractional Shortening PLAX 43.8 % 25 - 46 % LV Ejection Fraction 2D Teich 74.9 % IVS Diastolic Thickness 1.3 cm LVPW Diastolic Thickness 1.3 cm LV Relative Wall Thickness 0.5 RV Internal Dim ED PLAX 3.5 cm 1.9 - 3.8 cm LVOT Diameter 2.0 cm Aortic Root Diameter 3.2 cm LA Systolic Diameter LX 4.8 cm 3.0 - 4.0 / 2.7 - 3.8 cm LA Volume 78.0 cm 18 - 58 / 22 - 52 cm Ascending Aorta Diameter 3.4 cm DOPPLER AV Peak Velocity 449.0 cm/s AV Peak Gradient 80.6 mmHg AV Mean Velocity 341.0 cm/s AV Mean Gradient 51.0 mmHg AV Velocity Time Integral 98.7 cm LVOT Peak Velocity 114.0 cm/s LVOT Peak Gradient 5.2 mmHg LVOT Mean Velocity 81.4 cm/s LVOT Mean Gradient 3.0 mmHg LVOT Velocity Time Integral 26.1 cm LVOT Stroke Volume 82.0 cm AV Area Cont Eq vti 0.8 cm AV Area Cont Eq pk 0.8 cm MV Peak Velocity 276.0 cm/s MV Peak Gradient 30.5 mmHg MV Mean Velocity 180.5 cm/s MV Mean Gradient 15.5 mmHg Mitral E Point Velocity 225.0 cm/s Mitral A Point Velocity 225.0 cm/s Mitral E to A Ratio 1.0 MV PHT Velocity 281.5 cm/s MV Deceleration Carson 1138.0 cm/s MV Pressure Half Time 74.2 ms MV Area PHT 3.0 cm MV Deceleration Time 375.0 ms MR Peak Velocity 521.0 cm/s MR Peak Gradient 108.6 mmHg MR ERO PISA 2.5 cm MR Regurgitant Volume PISA 323.9 cm TR Peak Velocity 392.0 cm/s TR Peak Gradient 61.5 mmHg Right Atrial Pressure 5.0 mmHg Pulmonary Artery Systolic Pressu 66.5 mmHg Right Ventricular Systolic Press 66.5 mmHg PV Peak Velocity 123.0 cm/s PV Peak Gradient 6.1 mmHg PV Mean Velocity 79.5 cm/s PV Mean Gradient 3.0 mmHg PV Velocity Time Integral 27.6 cm LV E' Lateral Velocity 7.0 cm/s Mitral E to LV E' Lateral Ratio 32.1 LV E' Septal Velocity 6.2 cm/s Mitral E to LV E' Septal Ratio 36.1
--- NOTE | 2017-01-06 19:04 | ECHOCARDIOGRAM REPORT ---
JAISON VELASQUEZ Age: 51 : 1965 Gender: F Exam Date: 01/05/2017 15:57 Exam Location: 1 [facility] Ht (in): 65 Wt (lb): 164 BSA: 1.86 BP: 102 / 62 Ordering Physician: SANTO MERCER MD Referring Physician: Jacek Lira MD Technologist: Melody Madera RENA Room Number: [id number] Indications: VALVULAR DISEASE Rhythm: Sinus Technical Quality: Fair FINDINGS Left Ventricle Right Ventricle Right Atrium Left Atrium Mitral Valve Mitral valve thickened. Mild mitral stenosis. Moderate mitral regurgitation. Aortic Valve Tricuspid Valve Pulmonic Valve Pericardium Small pericardial effusion. Great Vessels CONCLUSIONS 1. This was a limited followup examination performed to better assess the severity of mitral valve disease. 2. Moderate mitral insufficiency is present. 3. The mitral valve anatomy is consistent with rheumatic mitral valve disease with mitral leaflet thickening, commisural fusion, diastolic doming of the anterior leaflet with partial immobilization of the posterior leaflet and evidence of some chordal fusion. 4. By planimetered evaluation; pressure half time and VTI calculations, there is at least mild to moderate mitral stenosis present with an estimated MVA of 1.4 - 1.8 cm2. Jacek Lira M.D. (Electronically Signed) Final Date: 06 January 2017 19:03 MEASUREMENTS (Male / Female) Normal Values 2D ECHO MV Area Planimetry 1.7 cm DOPPLER MV Peak Velocity 257.6 cm/s MV Peak Gradient 26.5 mmHg MV Mean Velocity 169.4 cm/s MV Mean Gradient 13.6 mmHg MV PHT Velocity 284.0 cm/s MV Deceleration Crisp 791.0 cm/s MV Pressure Half Time 107.7 ms MV Area PHT 2.0 cm
[2017-01-07 00:24] VITALS: BP 98/70
--- NOTE | 2017-01-07 07:10 | PN- Housestaff ---
RUSLAN CROOKS,SANTO 01/07/17 0709: Subjective Follow-up For: Severe causing CHF Suspected diffuse pneumonia Subjective: I saw and examined the patient today morning She is doing much better today, able to sleep well. No overnight issues. Guiac negative in am, started on IV heparin. Review of Systems Constitutional: Reports: see HPI. Comments: ROS negative except the above. Objective Last 24 Hrs of Vital Signs/I&O Vital Signs Date Time Temp Pulse Resp B/P Pulse O2 O2 Flow FiO2 Ox Delivery Rate 01/07 0024 100.1 88 20 98/70 94 Nasal Cannula 01/07 0000 88 Nasal 60% Cannula 01/06 2233 92 Nasal 60% Cannula 01/06 1835 90 Nasal 60% Cannula 01/06 1627 98.5 81 20 102/60 85 01/06 1618 91 Nasal 60% Cannula 01/06 1600 Nasal 60% Cannula 01/06 1411 92 Nasal 60% Cannula 01/06 1134 91 Nasal 60% Cannula 01/06 1018 100/70 01/06 1017 100/70 01/06 0950 92 Nasal 60% Cannula 01/06 0800 Nasal 85% Cannula 01/06 0800 98.7 88 20 100/60 96 Nasal Cannula 01/06 0728 95 Nasal 85% Cannula Intake & Output 01/07 0800 01/07 0000 01/06 1600 Intake Total 300 240 720 Output Total 1000 Balance -700 240 720 Intake, IV 250 Intake, Oral 50 240 720 Number 1 Bowel Movements Output, Urine 1000 Patient 80.286 kg Weight Physical Exam General Appearance: Alert, Oriented X3 Skin: No Rashes, No Breakdown HEENT: Atraumatic, PERRLA, EOMI Neck: Supple Cardiovascular: Normal S1, splitting of S2, pansystolic murmur present Lungs: Clear to Auscultation, Normal Air Movement Abdomen: Normal Bowel Sounds, Soft, No Tenderness Neurological: Normal Tone Extremities: No Clubbing, No Cyanosis Vascular: Normal Pulses Current Medications: Current Medications Sig/Lico Start time Last Medication Dose Route Stop Time Status Admin Acetaminophen 650 MG Q6P PRN 01/04 1530 AC 01/05 PO 1134 Albuterol Sulfate 3 ML TID 01/05 1000 AC 01/06 INH 1830 Amiodarone HCl 200 MG DAILY 01/05 1000 AC 01/06 PO 1017 Atorvastatin Calcium 10 MG QPM 01/04 2200 AC 01/06 PO 2339 Bupropion HCl 300 MG QAM 01/05 1000 AC 01/06 PO 1018 Ceftazidime 1,000 MG IQ8 01/05 1600 AC 01/07 IV 0041 Dipyridamole/Aspirin 1 CAP BID 01/04 2200 AC 01/06 PO 2339 Escitalopram Oxalate 10 MG QPM 01/04 2200 AC 01/06 PO 2339 Famotidine 20 MG TIDPRN PRN 01/04 1600 AC PO Furosemide 20 MG 7:30 AM, & 4:30 PM 01/05 1630 AC 01/06 IV 1700 Hydroxychloroquine 200 MG BID 01/04 2200 AC 01/06 Sulfate PO 2339 Ibuprofen 800 MG TIDPRN PRN 01/04 1600 AC PO Ipratropium [place] 2.5 ML TID 01/05 1000 AC 01/06 INH 1830 Lactobacillus 1 CAP BID 01/06 0915 AC 01/06 Acidophilus PO 2339 Lorazepam 0.5 MG DAILY NEEDED PRN 01/04 1515 AC PO 01/11 1514 Metoprolol Succinate 25 MG QAM 01/05 1000 AC 01/06 PO 1018 Morphine Sulfate 1 MG Q6-PRN PRN 01/04 1530 AC IV Potassium Chloride 40 MEQ ONCE ONE 01/06 0915 DC 01/06 PO 01/06 0916 1017 Prednisone 5 MG DAILY 01/05 1000 AC 01/06 PO 1018 Pregabalin 75 MG BID 01/04 2200 AC 01/06 PO 2342 Vancomycin HCl 1,250 MG Q12 01/06 2200 AC 01/06 Dextrose/Water 250 ML IV 2340 Vancomycin HCl 1,250 MG Q12 01/06 1000 DC 01/06 Dextrose/Water 250 ML IV 1017 Vancomycin HCl 1,250 MG Q12 01/05 1000 DC 01/05 Dextrose/Water 250 ML IV 2223 Warfarin Sodium 2.5 MG COUMADIN 1700 ONE 01/06 1700 CAN PO 01/06 1701 Lines/Diet/Fluids Lines: peripheral lines Assessment/Plan Assessment: Patient is a 51 YO F with PMH significant for HTN, HFpEF, CVA in 2011 secondary to embolization of AV vegeation on Coumadin, rheumatic heart disease, fibromyalgia, seronegative rheumatoid arthritis on prednisone, and recurrent calcium oxalate stones s/p lithotripsy, who presents after a sudden onset of chest pressure and exertional dsypnea associated with flu-like and URI symptoms including sore throat, nasal congestion, nonproductive cough, subjective fever, chills, fatigue, headache, and generalized malaise. She was in her usual state until yesterday when she suddenly these symptoms. # Acute hypoxic respiratory failure - possible health care acquired pneumonia/ Amiodarone side effect. Oxygen satruation on admission 80%, requiring 6L of oxygen via NC. She is not oxygen dependent at home. Currently on high flow oxygen. DDx includes healthcare acquired PNA, heart failure exacerbation/Amiodarone side effect. Patient received ceftraixone, azithro and Solumedrol in the ED * Admit to telemetery unit * septic at the time of admission - lactic acid trended down with 1.2 * On ceftaz and vanco for suspected diffuse pneumonia (admitted in the past 90days) * High flow oxygen (85%) and TRC neb tx as needed * Cough suppresants * CXR today shows worsening of disease in the upper lobes, inflammatory vs infection. * White count appears to be improving on antibiotics - so we will continue IV antibiotics for now as per pulmonology. Sever Aortic Stenosis causing CHF * On IV lasix 20mg BID - monitor BP * Needs replacement soon once stabilized. * ECHO - 0.8cm2 Aortic valve, so needs cath to evaluate for coronary arteries, understand exact size of aortic valve. * Once INR is <2 will started on IV heparin. * Nothing by mouth after midnight Wednesday for cardiac catheterization at [facility] with Dr. Cruz on Wednesday * Tentative plans for valve replacement surgery on Wednesday with Dr. Carney Rheumatic heart disease with Mitral insufficiency * ECHO shows Mitral valve thickened. [id number] mitral stenosis. Moderate to mitral regurgitation. * Valve thickneing extending into subvalvular chordal structures. # HFpEF, HTN,prior CVA * prednisone 5mg daily * Continue metorplol succinate (Tpprol XL) 25mg for HTN * Cont home meds Aggrenox 1 cap PO BID and Lipitor 10 mg PO QPM * Appreciate cardio recs # Mental health * Ativan 0.5 mg PO PRN anxiety * Lexapro 10 mg PO QPM # RA, fibromyalgia * Continue plaquenil 200 mg PO BID * Continue lyrica 75 mg PO BID # CHF Diet - Chopped and Thin Liquids # Mild pain pathway # DVT PPx ALPs # Full code. Problem List: 1. CHF exacerbation 2. Pulmonary edema 3. Severe aortic stenosis 4. Mitral insufficiency and aortic stenosis 5. History of CVA (cerebrovascular accident) 6. Rheumatic fever with cardiac involvement 7. Bicuspid aortic valve 8. Mild mitral stenosis Pain Ratin Pain Location: n/a Pain Goal: Pain 4 or less Pain Plan: tylenol PRN Tomorrow's Labs & Rationales: cbc - on heparin drip BEP - on lasix Consulting Request: Consulting Specialty: Cardiology Consulting Physician: Jacek Lira MD Reason for Consult: Aortic stenosis MEREDITH HI 01/07/17 1048: Attending MD Review Statement Attending Statement Attending MD Statement: examined this patient, discuss w/resident/PA/DRAIN TILE MACHINE OPERATOR, agreed w/resident/PA/DRAIN TILE MACHINE OPERATOR, discussed with family, reviewed EMR data (avail), discussed with nursing, discussed with case mgmt, reviewed images Attending Assessment/Plan: Acute hypoxic respiratory failure 2/2 possible Health care acquired pneumonia vs heart failure NYHA class 3 2/2 severe aortic stenosis a candidate for aortic valve replacement in future, Chest pain rule out ACS serial cardiac enzymes negative for [place], Severe sepsis 2/2 HCAP f/u blood culture x 2 negative so far, CT chest with contrast differential vast cannot exclude infection, f/u pulmonary , c/w broad spectrum abx, Lactic acidosis 1.2 trended down. Supratherapeutic INR , monitor INR, Coumadin on hold, PREP for Cardiac cath possible on Wednesday and Valvular surgery therafter. Patient does have elevated bnp, watch for fluid overlaod. Lasix use as per cardio. strict i/o, daily weights. f/u cardiology for valvular disease, Patient developed loose stools, h/o c.Diff in past, added lactobaciluus which is improved. Gi/dvt. full code.
[2017-01-07 08:24] LABS: PT 17.9 SEC (9.4-12.5)
[2017-01-07 08:30] LABS: ABSOLUTE BASOPHIL COUNT 0 /CUMM (0.0-0.2); ABSOLUTE EOSINOPHIL COUNT 0 /CUMM (0.0-0.7); ABSOLUTE GRANULOCYTE CT 11.7 /CUMM (1.4-6.5); ABSOLUTE LYMPH COUNT 1.2 /CUMM (1.2-3.4); ABSOLUTE MONOCYTE COUNT 0.7 /CUMM (0.10-0.60); BASOPHIL % 0.1 % (0.0-2.0); EOSINOPHIL % 0.2 % (0-5); GRANULOCYTE % 86.1 % (42.2-75.2); HEMATOCRIT 25.3 % (37-47); MEAN CORPUSCULAR HGB 27.8 PG (27.0-31.0); MEAN CORPUSCULAR HGB CONC 32.4 G/DL (33.0-37.0); MEAN CORPUSCULAR VOLUME 85.7 FL (81.0-99.0); MEAN PLATELET VOLUME 7.4 FL (7.4-10.4); PLATELET COUNT 406 /CUMM (130-400); RED BLOOD CELL CT 2.96 /CUMM (4.20-5.40)
[2017-01-07 08:31] VITALS: BP 104/60
[2017-01-07 09:24] LABS: WHITE BLOOD CELL COUNT 13.6 /CUMM (4.8-10.8)
--- NOTE | 2017-01-07 10:45 | PN- Pulmonary ---
Subjective HPI/Critical Care Issues: pt seen and examined on 80% high flow nasal cannula doing much better crackles improved anticipating cath on wednesday Objective Current Medications: Current Medications Sig/Lico Start time Last Medication Dose Route Stop Time Status Admin Acetaminophen 650 MG Q6P PRN 01/04 1530 AC 01/05 PO 1134 Albuterol Sulfate 3 ML TID 01/05 1000 AC 01/07 INH 1009 Amiodarone HCl 200 MG DAILY 01/05 1000 AC 01/07 PO 0952 Atorvastatin Calcium 10 MG QPM 01/04 2200 AC 01/06 PO 2339 Bupropion HCl 300 MG QAM 01/05 1000 AC 01/07 PO 0952 Ceftazidime 1,000 MG IQ8 01/05 1600 AC 01/07 IV 0850 Dipyridamole/Aspirin 1 CAP BID 01/04 2200 AC 01/07 PO 0952 Escitalopram Oxalate 10 MG QPM 01/04 2200 AC 01/06 PO 2339 Famotidine 20 MG TIDPRN PRN 01/04 1600 AC PO Furosemide 20 MG 7:30 AM, & 4:30 PM 01/05 1630 AC 01/07 IV 0851 Heparin Sodium 25,000 UNIT Q24H 01/07 0900 AC (Porcine) IV Sodium Chloride 500 ML Hydroxychloroquine 200 MG BID 01/04 2200 AC 01/07 Sulfate PO 0952 Ibuprofen 800 MG TIDPRN PRN 01/04 1600 AC PO Ipratropium [place] 2.5 ML TID 01/05 1000 AC 01/07 INH 1009 Lactobacillus 1 CAP BID 01/06 0915 AC 01/07 Acidophilus PO 0952 Lorazepam 0.5 MG DAILY NEEDED PRN 01/04 1515 AC PO 01/11 1514 Metoprolol Succinate 25 MG QAM 01/05 1000 AC 01/07 PO 0952 Morphine Sulfate 1 MG Q6-PRN PRN 01/04 1530 AC IV Prednisone 5 MG DAILY 01/05 1000 AC 01/07 PO 0952 Pregabalin 75 MG BID 01/04 2200 AC 01/07 PO 0952 Vancomycin HCl 1,250 MG Q12 01/06 2200 AC 01/07 Dextrose/Water 250 ML IV 0951 Vancomycin HCl 1,250 MG Q12 01/06 1000 DC 01/06 Dextrose/Water 250 ML IV 1017 Warfarin Sodium 2.5 MG COUMADIN 1700 ONE 01/06 1700 CAN PO 01/06 1701 Vital Signs & I&O Last 24 Hrs of Vitals and I&O: Vital Signs Date Time Temp Pulse Resp B/P Pulse O2 O2 Flow FiO2 Ox Delivery Rate 01/07 1014 96 Nasal 80% Cannula 01/07 0952 104/60 01/07 0952 104/60 01/07 0831 99.0 87 20 104/60 95 Nasal 80% Cannula 01/07 0024 100.1 88 20 98/70 94 Nasal Cannula 01/07 0000 88 Nasal 60% Cannula 01/06 2233 92 Nasal 60% Cannula 01/06 1835 90 Nasal 60% Cannula 01/06 1627 98.5 81 20 102/60 85 01/06 1618 91 Nasal 60% Cannula 01/06 1600 Nasal 60% Cannula 01/06 1411 92 Nasal 60% Cannula 01/06 1134 91 Nasal 60% Cannula Intake & Output 01/07 1600 01/07 0800 01/07 0000 Intake Total 300 240 Output Total 1000 Balance -700 240 Intake, IV 250 Intake, Oral 50 240 Number 1 Bowel Movements Output, Urine 1000 Patient 177 lb Weight Exam Other Physical Findings: gen awake and alert heent high flow o2 cvs s1, s2, murmur lungs improved crackles abd soft, bs+ ext no edema Results Last 24 Hrs of Lab Results: Laboratory Tests 01/07/17 0605: PT 17.9 H, INR 1.71 H, CBC w Diff NO MAN DIFF REQ, RBC 2.96 L, MCV 85.7, MCH 27.8, RDW 18.0 H, MPV 7.4, Gran % 86.1 H, Lymphocytes % 8.7 L, Monocytes % 4.9, Eosinophils % 0.2, Basophils % 0.1, Absolute Granulocytes 11.7 H, Absolute Lymphocytes 1.2, Absolute Monocytes 0.7 H, Absolute Eosinophils 0, Absolute Basophils 0, PUBS MCHC 32.4 L Impression/Plan Impression/Plan Impression/Plan: Impression 51 year old woman * dyspnea and hypoxemic respiratory failure * valve related congestive heart failure * improved pulmonary edema * Leukocytosis maybe steroid related, tx with abx in meantime Plan - cardiology follow up - likely cath Wednesday, NPO Wednesday - on heparin gtt - cont abx course, wbc improved, max 7 days - she may require a cardiac cath and valve workup per cardiology - on prednisone for RA DVT prophylaxis at all times
[2017-01-07 16:40] VITALS: BP 110/60
[2017-01-07 19:58] LABS: PTT 45 SEC (25-37)
[2017-01-08] VITALS: BP 104/70
[2017-01-08 03:06] LABS: ABSOLUTE BASOPHIL COUNT 0 /CUMM (0.0-0.2); ABSOLUTE EOSINOPHIL COUNT 0 /CUMM (0.0-0.7); ABSOLUTE GRANULOCYTE CT 10.6 /CUMM (1.4-6.5); ABSOLUTE LYMPH COUNT 1.7 /CUMM (1.2-3.4); ABSOLUTE MONOCYTE COUNT 0.8 /CUMM (0.10-0.60); BASOPHIL % 0.2 % (0.0-2.0); EOSINOPHIL % 0 % (0-5); GRANULOCYTE % 80.2 % (42.2-75.2); HEMATOCRIT 24.5 % (37-47); MEAN CORPUSCULAR HGB 27.2 PG (27.0-31.0); MEAN CORPUSCULAR HGB CONC 31.9 G/DL (33.0-37.0); MEAN CORPUSCULAR VOLUME 85.3 FL (81.0-99.0); PLATELET COUNT 427 /CUMM (130-400); RED BLOOD CELL CT 2.87 /CUMM (4.20-5.40); WHITE BLOOD CELL COUNT 13.2 /CUMM (4.8-10.8)
[2017-01-08 03:15] LABS: PTT 66 SEC (25-37)
--- NOTE | 2017-01-08 07:15 | PN- Housestaff ---
RUSLAN CROOKS,SANTO 01/08/17 0715: Subjective Follow-up For: Severe Aortic Stenosis Diffuse pneumonia Subjective: I saw and examined the patient today morning She is doing much better today. Able to sleep well and talking in full sentences. Denies any shortness of breath, chest pain, wheezing. Still on high flow oxygen. Review of Systems Constitutional: Reports: see HPI. Comments: ROS negative except the above. Objective Last 24 Hrs of Vital Signs/I&O Vital Signs Date Time Temp Pulse Resp B/P Pulse O2 O2 Flow FiO2 Ox Delivery Rate 01/08 0210 91 Nasal 100% Cannula 01/08 0000 94 Nasal 60% Cannula 01/08 0000 99.1 82 24 104/70 94 Nasal 60% Cannula 01/07 2240 93 Nasal 60% Cannula 01/07 1926 94 Nasal 65% Cannula 01/07 1700 95 Nasal 70% Cannula 01/07 1640 99.4 85 18 110/60 92 Nasal Cannula 01/07 1600 Nasal 65% Cannula 01/07 1014 96 Nasal 80% Cannula 01/07 0952 104/60 01/07 0952 104/60 01/07 0831 99.0 87 20 104/60 95 Nasal 80% Cannula 01/07 0800 Nasal 65% Cannula Intake & Output 01/08 0800 01/08 0000 01/07 1600 Intake Total 240 448 996 Output Total 300 1325 800 Balance -60 -877 196 Intake, IV 208 276 Intake, Oral 240 240 720 Number 1 2 1 Bowel Movements Output, Urine 300 1325 800 Patient 80.399 kg Weight Physical Exam General Appearance: Alert, Oriented X3 Skin: No Rashes, No Breakdown HEENT: Atraumatic, PERRLA, EOMI Neck: Supple Cardiovascular: Normal S1, systolic murmur, splitting of S2 Lungs: Clear to Auscultation, Normal Air Movement, mild crackles at bases Abdomen: Normal Bowel Sounds, Soft, No Tenderness Neurological: Normal Speech, Normal Tone Extremities: No Clubbing, No Cyanosis, No Edema Vascular: Normal Pulses, Pulses Symmetrical Current Medications: Current Medications Sig/Lico Start time Last Medication Dose Route Stop Time Status Admin Acetaminophen 650 MG Q6P PRN 01/04 1530 AC 01/05 PO 1134 Albuterol Sulfate 3 ML TID 01/05 1000 AC 01/07 INH 2124 Amiodarone HCl 200 MG DAILY 01/05 1000 AC 01/07 PO 0952 Atorvastatin Calcium 10 MG QPM 01/04 2200 AC 01/07 PO 2200 Bupropion HCl 300 MG QAM 01/05 1000 AC 01/07 PO 0952 Ceftazidime 1,000 MG IQ8 01/05 1600 AC 01/08 IV 0046 Dipyridamole/Aspirin 1 CAP BID 01/04 2200 AC 01/07 PO 2200 Escitalopram Oxalate 10 MG QPM 01/04 2200 AC 01/07 PO 2200 Famotidine 20 MG TIDPRN PRN 01/04 1600 AC PO Furosemide 20 MG 7:30 AM, & 4:30 PM 01/05 1630 AC 01/07 IV 1708 Heparin Sodium 3,200 UNIT BOLUS ONE 01/07 2030 DC 01/07 (Porcine) IV 01/07 Heparin Sodium 5,000 UNIT .STK-MED ONE 01/08 2016 DC (Porcine) IV 01/07 2017 Heparin Sodium 25,000 UNIT Q24H 01/07 0900 AC 01/07 (Porcine) IV 1252 Sodium Chloride 500 ML Hydroxychloroquine 200 MG BID 01/04 2200 AC 01/07 Sulfate PO 2200 Ibuprofen 800 MG TIDPRN PRN 01/04 1600 AC PO Ipratropium [place] 2.5 ML TID 01/05 1000 AC 01/07 INH 2124 Lactobacillus 1 CAP BID 01/06 0915 AC 01/07 Acidophilus PO 2200 Lorazepam 0.5 MG DAILY NEEDED PRN 01/04 1515 AC PO 01/11 1514 Metoprolol Succinate 25 MG QAM 01/05 1000 AC 01/07 PO 0952 Morphine Sulfate 1 MG Q6-PRN PRN 01/04 1530 AC IV Patient Medication 1 ED .STK-MED ONE 01/07 1353 DC Teaching ED 01/07 1354 Prednisone 5 MG DAILY 01/05 1000 AC 01/07 PO 0952 Pregabalin 75 MG BID 01/04 2200 AC 01/07 PO 2200 Vancomycin HCl 1,250 MG Q12 01/06 2200 AC 01/07 Dextrose/Water 250 ML IV 2215 Last 24 Hrs of Lab/Michael Results Last 24 Hrs of Labs/Mics: Laboratory Tests 01/08/17 1457: APTT 62 H 01/08/17 0245: Anion Gap 10, Estimated GFR 47 L, BUN/Creatinine Ratio 16.7, Magnesium 2.5 H, APTT 66 H, CBC w Diff NO MAN DIFF REQ, RBC 2.87 L, MCV 85.3, MCH 27.2, RDW 18.0 H, MPV 7.0 L, Gran % 80.2 H, Lymphocytes % 13.2 L, Monocytes % 6.4, Eosinophils % 0, Basophils % 0.2, Absolute Granulocytes 10.6 H, Absolute Lymphocytes 1.7, Absolute Monocytes 0.8 H, Absolute Eosinophils 0, Absolute Basophils 0, PUBS MCHC 31.9 L 01/07/17 1858: APTT 45 H Assessment/Plan Assessment: Patient is a 51 YO F with PMH significant for HTN, HFpEF, CVA in 2011 secondary to embolization of AV vegeation on Coumadin, rheumatic heart disease, fibromyalgia, seronegative rheumatoid arthritis on prednisone, and recurrent calcium oxalate stones s/p lithotripsy, who presents after a sudden onset of chest pressure and exertional dsypnea associated with flu-like and URI symptoms including sore throat, nasal congestion, nonproductive cough, subjective fever, chills, fatigue, headache, and generalized malaise. She was in her usual state until yesterday when she suddenly these symptoms. Suspected gram negative sepsis - possible health care acquired pneumonia/ Amiodarone side effect Oxygen satruation on admission 80%, requiring 6L of oxygen via [place]. She is not oxygen dependent at home. Currently on high flow oxygen. DDx includes healthcare acquired PNA, heart failure exacerbation/Amiodarone side effect. Patient received ceftraixone, azithro and Solumedrol in the ED * Admit to telemetery unit * septic at the time of admission - lactic acid trended down with 1.2 * On ceftaz and vanco for suspected diffuse pneumonia (admitted in the past 90days) * Today Vanco trough level measured at 21:30pm - if the level is >20 next dose need to be held. * High flow oxygen (30%) and TRC neb tx as needed * Cough suppresants * Repeat CXR shows worsening of disease in the upper lobes, inflammatory vs infection. * White count appears to be improving on antibiotics - so we will continue IV antibiotics for now as per pulmonology. Sever Aortic Stenosis causing CHF * On IV lasix 20mg BID - monitor BP * Needs replacement soon once stabilized. * ECHO - 0.8cm2 Aortic valve, so needs cath to evaluate for coronary arteries, understand exact size of aortic valve. * On IV heparin * Nothing by mouth after midnight Wednesday for cardiac catheterization at [facility] with Dr. Cruz on Wednesday * Tentative plans for valve replacement surgery on Wednesday with Dr. Carney Rheumatic heart disease with Mitral insufficiency * ECHO shows Mitral valve thickened. [id number] mitral stenosis. Moderate to mitral regurgitation. * Valve thickneing extending into subvalvular chordal structures. # HFpEF, HTN,prior CVA * prednisone 5mg daily * Continue metorplol succinate (Tpprol XL) 25mg for HTN * Cont home meds Aggrenox 1 cap PO BID and Lipitor 10 mg PO QPM * Appreciate cardio recs # Mental health * Ativan 0.5 mg PO PRN anxiety * Lexapro 10 mg PO QPM # RA, fibromyalgia * Continue plaquenil 200 mg PO BID * Continue lyrica 75 mg PO BID # CHF Diet - Chopped and Thin Liquids # Mild pain pathway # DVT PPx ALPs # Full code. Problem List: 1. Hypertension 2. Mitral insufficiency and aortic stenosis 3. History of CVA (cerebrovascular accident) 4. Rheumatic fever with cardiac involvement 5. Severe aortic stenosis 6. Rheumatoid arthritis 7. Diarrhea Pain Ratin Pain Location: n/a Pain Goal: Remain pain free Pain Plan: tylenol prn Tomorrow's Labs & Rationales: bep to monitor renal function cbc to monitor white count Consulting Request: Consulting Specialty: Cardiology Consulting Physician: Jacek Lira MD Reason for Consult: Aortic stenosis MEREDITH HI 01/08/17 1309: Attending MD Review Statement Attending Statement Attending MD Statement: examined this patient, discuss w/resident/PA/TRANSPORT COORDINATOR, agreed w/resident/PA/TRANSPORT COORDINATOR, discussed with family, reviewed EMR data (avail), discussed with nursing, discussed with case mgmt, reviewed images Attending Assessment/Plan: Acute hypoxic respiratory failure 2/2 possible Health care acquired pneumonia possible gram negative and heart failure NYHA class 4 2/2 severe aortic stenosis a candidate for aortic valve replacement in future, Chest pain rule out ACS serial cardiac enzymes negative for [place], Severe sepsis 2/2 HCAP f/u blood culture x 2 negative so far, CT chest with contrast differential vast cannot exclude infection, f/u pulmonary, c/w broad spectrum abx, Lactic acidosis 1.2 trended down. Supratherapeutic INR, monitor INR, Coumadin on hold, PREP for Cardiac cath possible on Wednesday and Valvular surgery therafter. Patient does have elevated bnp, watch for fluid overlaod. Lasix use as per cardio. strict i/o, daily weights. f/u cardiology for valvular disease, Patient developed loose stools, h/ o c.Diff in past, added lactobaciluus which is improved. Nephrology consulted for cath clearance, expalined patient risks/benefits of cath procedure, she is willing to pursue procedure. check vanco levels, avoid NSAIDs. Cath on Wednesday possible transfer. Gi/dvt. full code
[2017-01-08 09:01] VITALS: BP 104/76
--- NOTE | 2017-01-08 11:36 | Cons- Nephrology ---
General Information and HPI Consulting Request Date of Consult: 01/08/17 Requested By: MEREDITH HI MD Reason for Consult: DAO Source of Information: patient, old records Exam Limitations: no limitations History of Present Illness: The patient is a 51-year-old female with a history of rheumatic heart disease, with severe aortic stenosis as well as mitral stenosis/mitral regurgitation, congestive heart failure, who was admitted to the hospital on Wednesday with shortness of breath with diffuse pulmonary infiltrates and is being treated for pneumonia and congestive heart failure. Aortic and mitral valve replacement is planned for next week on Wednesday and cardiac catheterization for Wednesday. Baseline creatinine is 0.9-1.0 however been asked to see her for acute renal failure as her creatinine bumped to 1.2 today and given upcoming need for IV contrast with a cardiac catheterization on Wednesday. She did take ibuprofen a couple days ago in the hospital and she received IV contrast 3 days ago with a CAT scan. She's also been on intravenous vancomycin twice daily empirically for pneumonia. She denies issues urinating. She does have a history of a dual renal collecting system, for which she is followed by urologist and has required a ureteral stents in the past for hydronephrosis (the stent was ultimately removed as the patient about urosepsis a couple years back). She was also hospital last month of respiratory failure / CHF, requiring an ICU stay and intubation. Allergies/Medications Allergies: Coded Allergies: Sulfa (Sulfonamide Antibiotics) (N/V 01/04/17) Home Med List: Amiodarone HCl 200 MG TABLET 1 TAB PO DAILY HEART (Reported) Atorvastatin Calcium 10 MG TABLET 1 TAB PO QPM CHOLESTEROL (Reported) Bupropion HCl (Bupropion XL) 300 MG TAB.ER.24H 1 TAB PO QAM ANXIETY/DEPRESSION (Reported) Dipyridamole W/ Aspirin (Aggrenox 25 MG-200 MG Capsule) 25 MG-200 MG CPMP.12HR 1 CAP PO BID BLOOD THINNER (Reported) Escitalopram Oxalate (Lexapro) 10 MG TABLET 1 TAB PO QPM ANXIETY (Reported) Furosemide 20 MG TABLET 1 TAB PO DAILY CHF (Reported) Hydroxychloroquine Sulfate 200 MG TABLET 1 TAB PO BID RA (Reported) Ibuprofen/Famotidine (Duexis 800-26.6 MG Tablet) 800 MG-26.6 MG TABLET 1 TAB PO TID PRN RA (Reported) Lorazepam 0.5 MG TABLET 1 TAB PO DAILY PRN ANXIETY (Reported) Metoprolol Succinate 25 MG TAB 1 TAB PO QAM HEART (Reported) Prednisone 5 MG TABLET 1 TAB PO DAILY RA (Reported) Pregabalin (Lyrica) 75 MG CAPSULE 1 CAP PO BID FIBROMYALGIA (Reported) Warfarin Sodium 5 MG TABLET 1 TAB PO Wednesday BLOOD THINNER ( Reported) Warfarin Sodium (Coumadin) 2.5 MG TABLET 1 TAB PO AD BLOOD THINNER (Reported) Current Medications: Current Medications Sig/Lico Start time Last Medication Dose Route Stop Time Status Admin Acetaminophen 650 MG Q6P PRN 01/04 1530 AC 01/05 PO 1134 Albuterol Sulfate 3 ML TID 01/05 1000 AC 01/08 INH 0911 Amiodarone HCl 200 MG DAILY 01/05 1000 AC 01/08 PO 1007 Atorvastatin Calcium 10 MG QPM 01/04 2200 AC 01/07 PO 2200 Bupropion HCl 300 MG QAM 01/05 1000 AC 01/08 PO 1005 Ceftazidime 1,000 MG IQ8 01/05 1600 AC 01/08 IV 0806 Dipyridamole/Aspirin 1 CAP BID 01/04 2200 AC 01/08 PO 1006 Escitalopram Oxalate 10 MG QPM 01/04 2200 AC 01/07 PO 2200 Famotidine 20 MG TIDPRN PRN 01/04 1600 AC PO Furosemide 20 MG 7:30 AM, & 4:30 PM 01/05 1630 AC 01/08 IV 0755 Heparin Sodium 3,200 UNIT BOLUS ONE 01/07 2030 DC 01/07 (Porcine) IV 01/07 Heparin Sodium 5,000 UNIT .STK-MED ONE 01/08 2016 DC (Porcine) IV 01/07 2017 Heparin Sodium 25,000 UNIT Q24H 01/07 0900 AC 01/08 (Porcine) IV 0740 Sodium Chloride 500 ML Hydroxychloroquine 200 MG BID 01/04 2200 AC 01/08 Sulfate PO 1006 Ibuprofen 800 MG TIDPRN PRN 01/04 1600 DC PO Ipratropium [place] 2.5 ML TID 01/05 1000 AC 01/08 INH 0911 Lactobacillus 1 CAP BID 01/06 0915 AC 01/08 Acidophilus PO 1009 Lorazepam 0.5 MG DAILY NEEDED PRN 01/04 1515 AC PO 01/11 1514 Metoprolol Succinate 25 MG QAM 01/05 1000 AC 01/08 PO 1009 Morphine Sulfate 1 MG Q6-PRN PRN 01/04 1530 AC IV Patient Medication 1 ED .STK-MED ONE 01/07 1353 DC Teaching ED 01/07 1354 Potassium Chloride 40 MEQ ONCE ONE 01/08 1000 DC 01/08 PO 01/08 1001 1010 Potassium Chloride 40 MEQ ONCE ONE 01/08 0730 DC 01/08 PO 01/08 0731 0755 Prednisone 5 MG DAILY 01/05 1000 AC 01/08 PO 1008 Pregabalin 75 MG BID 01/04 2200 AC 01/08 PO 1010 Vancomycin HCl 1,250 MG Q12 01/06 220 AC 01/08 Dextrose/Water 250 ML IV 1013 Review of Systems Review of Systems: Gen: neg fever, chills, nightsweats, wt loss Skin: neg rash, pruritus Eye: neg visual changes, diplopia ENT: neg hearing changes, rhinitus CV: neg CP, +OMALLEY/SOB Pulm: neg cough, sputum, hemoptysis GI: neg nausea, vomiting, diarrhea, abdominal pain, hematemesis, BRBPR : neg dysuria, frequency, urgency, hematuria, foamy urine, nocturia Musculoskeletal: neg myalgias, arthralgias Neuro: neg weakness, numbness Psych: neg depression, mental status changes Heme: neg bruising, easy bleeding, clots Past History Travel History Traveled to [place] past 21 day Yes Medical History Blood Transfusion Hx: No Neurological: CVA Cardiovascular: AFIB, CHF, hypertension, myocardial infarction, HYPERLIPIDEMIA RHEAMATIC HEART DISEASE AORTIC STENOSIS Respiratory: MULTILOBAR PNEUMONIA W/ INTUBATION Renal: nephrolithiasis Musculoskeletal: fibromyalgia, rheumatoid arthritis Psychiatric: anxiety Endocrine: NONE Blood Disorders: NONE Cancer(s): NONE 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 Home Who Do You Live With? spouse Services at Home: None Primary Language: Citizen Of [place] Smoking Status: Former Smoker ETOH Use: denies use Illicit Drug Use: denies illicit drug use Functional Ability ADLs Independent: dressing, eating, toileting, bathing. Ambulation: independent IADLs Independent: shopping, housework, finances, food prep, telephone, transportation , medication admin. Exam & Diagnostic Data Vital Signs and I&O Vital Signs Date Time Temp Pulse Resp B/P Pulse O2 O2 Flow FiO2 Ox Delivery Rate 01/08 1058 98 Nasal 60% Cannula 01/08 1009 81 118/70 01/08 1007 81 118/70 01/08 0901 99.0 79 18 104/76 100 Nasal Cannula 01/08 0900 99 Nasal 95% Cannula 01/08 0800 99 Nasal 100% Cannula 01/08 0210 91 Nasal 100% Cannula 01/08 0000 94 Nasal 60% Cannula 01/08 0000 99.1 82 24 104/70 94 Nasal 60% Cannula 01/07 2240 93 Nasal 60% Cannula 01/07 1926 94 Nasal 65% Cannula 01/07 1700 95 Nasal 70% Cannula 01/07 1640 99.4 85 18 110/60 92 Nasal Cannula 01/07 1600 Nasal 65% Cannula Intake & Output 01/08 1600 01/08 0400 01/07 1600 01/07 0400 01/06 1600 01/06 0400 Intake Total 088 735 6053 240 820 850 Output Total 300 1325 1829 945 6093 Balance -60 -877 -504 240 520 -250 Intake, IV 208 526 100 250 Intake, Oral 240 240 770 240 720 600 Number 1 2 2 Bowel Movements Output, Urine 300 1325 6000 552 4349 Patient 177 lb 177 lb 179 lb Weight Physical Exam: General: NAD, A+O x3. HEENT: NC/AT. No icterus. Moist mucosa. on high flow O2 Neck: no JVD CV: RRR, no m/r/g Pulm: CTAB, no rales Abd: soft, NT Lower Ext: neg edema Upper Ext: no AVFs or AVGs Back: negative for CVA tenderness Neuro: neg tremor, asterixis Skin: no rash, jaundice : no schofield catheter Results Pertinent Lab Results: Laboratory Tests 01/08 01/07 01/07 0245 1858 1115 Chemistry Sodium (137 - 145 mmol/L) 136 L 132 L Potassium (3.5 - 5.1 mmol/L) 3.1 L 3.4 L Chloride (98 - 107 mmol/L) 96 L 95 L Carbon Dioxide (22 - 30 mmol/L) 30 27 Anion Gap (5 - 16) 10 9 BUN (7 - 17 mg/dL) 20 H 19 H Creatinine (0.5 - 1.0 mg/dL) 1.2 H 1.0 Estimated GFR (>60 ml/min) 47 L 58 L BUN/Creatinine Ratio (7 - 25 %) 16.7 19.0 Magnesium (1.6 - 2.3 mg/dL) 2.5 H Coagulation APTT (25 - 37 SEC) 66 H 45 H Hematology CBC w Diff NO MAN DIFF REQ WBC (4.8 - 10.8 /CUMM) 13.2 H RBC (4.20 - 5.40 /CUMM) 2.87 L Hgb (12.0 - 16.0 G/DL) 7.8 L Hct (37 - 47 %) 24.5 L MCV (81.0 - 99.0 FL) 85.3 MCH (27.0 - 31.0 PG) 27.2 RDW (11.5 - 14.5 %) 18.0 H Plt Count (130 - 400 /CUMM) 427 H MPV (7.4 - 10.4 FL) 7.0 L Gran % (42.2 - 75.2 %) 80.2 H Lymphocytes % (20.5 - 51.1 %) 13.2 L Monocytes % (1.7 - 9.3 %) 6.4 Eosinophils % (0 - 5 %) 0 Basophils % (0.0 - 2.0 %) 0.2 Absolute Granulocytes (1.4 - 6.5 /CUMM) 10.6 H Absolute Lymphocytes (1.2 - 3.4 /CUMM) 1.7 Absolute Monocytes (0.10 - 0.60 /CUMM) 0.8 H Absolute Eosinophils (0.0 - 0.7 /CUMM) 0 Absolute Basophils (0.0 - 0.2 /CUMM) 0 PUBS MCHC (33.0 - 37.0 G/DL) 31.9 L 01/07 01/06 0605 0615 Chemistry Sodium (137 - 145 mmol/L) 134 L Potassium (3.5 - 5.1 mmol/L) 3.8 Chloride (98 - 107 mmol/L) 101 Carbon Dioxide (22 - 30 mmol/L) 26 Anion Gap (5 - 16) 7 BUN (7 - 17 mg/dL) 19 H Creatinine (0.5 - 1.0 mg/dL) 1.0 Estimated GFR (>60 ml/min) 58 L BUN/Creatinine Ratio (7 - 25 %) 19.0 Coagulation PT (9.4 - 12.5 SEC) 17.9 H 29.6 H INR (0.90 - 1.19) 1.71 H 2.85 H Hematology CBC w Diff NO MAN DIFF REQ NO MAN DIFF REQ WBC (4.8 - 10.8 /CUMM) 13.6 H 14.8 H RBC (4.20 - 5.40 /CUMM) 2.96 L 2.88 L Hgb (12.0 - 16.0 G/DL) 8.2 L 8.0 L Hct (37 - 47 %) 25.3 L 24.8 L MCV (81.0 - 99.0 FL) 85.7 86.3 MCH (27.0 - 31.0 PG) 27.8 27.8 RDW (11.5 - 14.5 %) 18.0 H 18.4 H Plt Count (130 - 400 /CUMM) 406 H 385 MPV (7.4 - 10.4 FL) 7.4 7.3 L Gran % (42.2 - 75.2 %) 86.1 H 86.6 H Lymphocytes % (20.5 - 51.1 %) 8.7 L 8.6 L Monocytes % (1.7 - 9.3 %) 4.9 4.7 Eosinophils % (0 - 5 %) 0.2 0 Basophils % (0.0 - 2.0 %) 0.1 0.1 Absolute Granulocytes (1.4 - 6.5 /CUMM) 11.7 H 12.8 H Absolute Lymphocytes (1.2 - 3.4 /CUMM) 1.2 1.3 Absolute Monocytes (0.10 - 0.60 /CUMM) 0.7 H 0.7 H Absolute Eosinophils (0.0 - 0.7 /CUMM) 0 0 Absolute Basophils (0.0 - 0.2 /CUMM) 0 0 PUBS MCHC (33.0 - 37.0 G/DL) 32.4 L 32.2 L Assessment/Plan Assessment/Recommendations Assessment: Acute kidney injury: Creatinine bumped up by 0.3 mg/dL above baseline consistent with acute kidney injury. Cause of DAO either due to NSAID use, IV contrast on January 04, diuretics, versus supratherapeutic vancomycin levels. A combination of these factors is also possible. Urinalysis is not consistent with melena nephritis with lack of proteinuria or hematuria. Would check a vancomycin level prior to the next dose to confirm additional dosing as needed as at this juncture she may only require acute 24-hour dosing rather than every 12 hours dosing. Would discontinue ibuprofen and change to when necessary Tylenol. Would rule out obstructive uropathy by checking a renal ultrasound as patient's prior history of obstructive uropathy secondary to kidney stone disease in the setting of a dual collecting system. Caution with diuretic dosing to avoid hypotension and over-diuresis. Please confirm renal function is stable prior to the cardiac catheterization as if creatinine continues to rise and the cardiac catheterization may need to be delayed. Recommendations: Renal ultrasound Discontinue ibuprofen check vanco level prior to next dose, to see if dosing interval needs to be spaced out Daily renal labs while in the hospital Confirm that renal function is stable prior to cardiac catheterization next week Thank you for the consultation Misha Collier MD
--- NOTE | 2017-01-08 12:28 | PN- Pulmonary ---
Subjective HPI/Critical Care Issues: pt seen and examined doing well overnight had 100% fio2 requirement, may have been related to possible apnea now on 70% much improved Objective Current Medications: Current Medications Sig/Lico Start time Last Medication Dose Route Stop Time Status Admin Acetaminophen 650 MG Q6P PRN 01/04 1530 AC 01/05 PO 1134 Albuterol Sulfate 3 ML TID 01/05 1000 AC 01/08 INH 0911 Amiodarone HCl 200 MG DAILY 01/05 1000 AC 01/08 PO 1007 Atorvastatin Calcium 10 MG QPM 01/04 2200 AC 01/07 PO 2200 Bupropion HCl 300 MG QAM 01/05 1000 AC 01/08 PO 1005 Ceftazidime 1,000 MG IQ8 01/05 1600 AC 01/08 IV 0806 Dipyridamole/Aspirin 1 CAP BID 01/04 2200 AC 01/08 PO 1006 Escitalopram Oxalate 10 MG QPM 01/04 2200 AC 01/07 PO 2200 Famotidine 20 MG TIDPRN PRN 01/04 1600 AC PO Furosemide 20 MG 7:30 AM, & 4:30 PM 01/05 1630 AC 01/08 IV 0755 Heparin Sodium 3,200 UNIT BOLUS ONE 01/07 2030 DC 01/07 (Porcine) IV 01/07 Heparin Sodium 5,000 UNIT .STK-MED ONE 01/08 2016 DC (Porcine) IV 01/07 2017 Heparin Sodium 25,000 UNIT Q24H 01/07 0900 AC 01/08 (Porcine) IV 0740 Sodium Chloride 500 ML Hydroxychloroquine 200 MG BID 01/04 2200 AC 01/08 Sulfate PO 1006 Ibuprofen 800 MG TIDPRN PRN 01/04 1600 DC PO Ipratropium [place] 2.5 ML TID 01/05 1000 AC 01/08 INH 0911 Lactobacillus 1 CAP BID 01/06 0915 AC 01/08 Acidophilus PO 1009 Lorazepam 0.5 MG DAILY NEEDED PRN 01/04 1515 AC PO 01/11 1514 Metoprolol Succinate 25 MG QAM 01/05 1000 AC 01/08 PO 1009 Morphine Sulfate 1 MG Q6-PRN PRN 01/04 1530 AC IV Patient Medication 1 ED .STK-MED ONE 01/07 1353 DC Teaching ED 01/07 1354 Potassium Chloride 40 MEQ ONCE ONE 01/08 1000 DC 01/08 PO 01/08 1001 1010 Potassium Chloride 40 MEQ ONCE ONE 01/08 0730 DC 01/08 PO 01/08 0731 0755 Prednisone 5 MG DAILY 01/05 1000 AC 01/08 PO 1008 Pregabalin 75 MG BID 01/04 2200 AC 01/08 PO 1010 Vancomycin HCl 1,250 MG Q12 01/06 2200 AC 01/08 Dextrose/Water 250 ML IV 1013 Vital Signs & I&O Last 24 Hrs of Vitals and I&O: Vital Signs Date Time Temp Pulse Resp B/P Pulse O2 O2 Flow FiO2 Ox Delivery Rate 01/08 1200 93 Nasal 75% Cannula 01/08 1058 98 Nasal 60% Cannula 01/08 1009 81 118/70 01/08 1007 81 118/70 01/08 0901 99.0 79 18 104/76 100 Nasal Cannula 01/08 0900 99 Nasal 95% Cannula 01/08 0800 99 Nasal 100% Cannula 01/08 0210 91 Nasal 100% Cannula 01/08 0000 94 Nasal 60% Cannula 01/08 0000 99.1 82 24 104/70 94 Nasal 60% Cannula 01/07 2240 93 Nasal 60% Cannula 01/07 1926 94 Nasal 65% Cannula 01/07 1700 95 Nasal 70% Cannula 01/07 1640 99.4 85 18 110/60 92 Nasal Cannula 01/07 1600 Nasal 65% Cannula Intake & Output 01/08 1600 01/08 0800 01/08 0000 Intake Total 240 448 Output Total 300 1325 Balance -60 -877 Intake, IV 208 Intake, Oral 240 240 Number 1 2 Bowel Movements Output, Urine 300 1325 Patient 177 lb 177 lb Weight Exam Other Physical Findings: gen awake and alert heent ncat cvs s1, s2 lungs rare rhonchi abd soft bs+ ext without edema Results Last 24 Hrs of Lab Results: Laboratory Tests 01/08/17 0245: Anion Gap 10, Estimated GFR 47 L, BUN/Creatinine Ratio 16.7, Magnesium 2.5 H, APTT 66 H, CBC w Diff NO MAN DIFF REQ, RBC 2.87 L, MCV 85.3, MCH 27.2, RDW 18.0 H, MPV 7.0 L, Gran % 80.2 H, Lymphocytes % 13.2 L, Monocytes % 6.4, Eosinophils % 0, Basophils % 0.2, Absolute Granulocytes 10.6 H, Absolute Lymphocytes 1.7, Absolute Monocytes 0.8 H, Absolute Eosinophils 0, Absolute Basophils 0, PUBS MCHC 31.9 L 01/07/17 1858: APTT 45 H Impression/Plan Impression/Plan Impression/Plan: Impression 51 year old woman * dyspnea and hypoxemic respiratory failure * valve related congestive heart failure * improved pulmonary edema * Leukocytosis maybe steroid related, tx with abx in meantime Plan - cardiology follow up - plan for cath Wednesday, NPO Wednesday - on heparin gtt - cont abx course, wbc improved, max 7 days (can complete by Wednesday) - cath and valve workup per cardiology - on prednisone for RA DVT prophylaxis at all times
--- NOTE | 2017-01-08 14:32 | PN- Cardiology ---
Subjective Subjective: Doing okay and feeling better today. Increased oxygen requirements overnight but improved today. Slight increased creatinine noted. Otherwise stable. Objective Vital Signs and I&Os Vital Signs Date Time Temp Pulse Resp B/P Pulse O2 O2 Flow FiO2 Ox Delivery Rate 01/08 1200 93 Nasal 75% Cannula 01/08 1058 98 Nasal 60% Cannula 01/08 1009 81 118/70 01/08 1007 81 118/70 01/08 0901 99.0 79 18 104/76 100 Nasal Cannula 01/08 0900 99 Nasal 95% Cannula 01/08 0800 99 Nasal 100% Cannula 01/08 0210 91 Nasal 100% Cannula 01/08 0000 94 Nasal 60% Cannula 01/08 0000 99.1 82 24 104/70 94 Nasal 60% Cannula 01/07 2240 93 Nasal 60% Cannula 01/07 1926 94 Nasal 65% Cannula 01/07 1700 95 Nasal 70% Cannula 01/07 1640 99.4 85 18 110/60 92 Nasal Cannula 01/07 1600 Nasal 65% Cannula Intake & Output 01/08 1600 01/08 0800 01/08 0000 01/07 1600 01/07 0800 01/07 0000 Intake Total 662 240 448 996 300 240 Output Total 2211 730 6836 800 1000 Balance -438 -60 -877 196 -700 240 Intake, IV 302 208 276 250 Intake, Oral 360 240 240 720 50 240 Number 1 1 2 1 1 Bowel Movements Output, Urine 1837 538 6981 800 1000 Patient 177 lb 177 lb 177 lb Weight Current Medications: Current Medications Sig/Lico Start time Last Medication Dose Route Stop Time Status Admin Acetaminophen 650 MG Q6P PRN 01/04 1530 AC 01/05 PO 1134 Albuterol Sulfate 3 ML TID 01/05 1000 AC 01/08 INH 0911 Amiodarone HCl 200 MG DAILY 01/05 1000 AC 01/08 PO 1007 Atorvastatin Calcium 10 MG QPM 01/04 2200 AC 01/07 PO 2200 Bupropion HCl 300 MG QAM 01/05 1000 AC 01/08 PO 1005 Ceftazidime 1,000 MG IQ8 01/05 1600 AC 01/08 IV 0806 Dipyridamole/Aspirin 1 CAP BID 01/04 2200 AC 01/08 PO 1006 Escitalopram Oxalate 10 MG QPM 01/04 2200 AC 01/07 PO 2200 Famotidine 20 MG TIDPRN PRN 01/04 1600 AC PO Furosemide 20 MG 7:30 AM, & 4:30 PM 01/05 1630 AC 01/08 IV 0755 Heparin Sodium 3,200 UNIT BOLUS ONE 01/07 2030 DC 01/07 (Porcine) IV 01/07 Heparin Sodium 5,000 UNIT .STK-MED ONE 01/08 2016 DC (Porcine) IV 01/07 2017 Heparin Sodium 25,000 UNIT Q24H 01/07 0900 AC 01/08 (Porcine) IV 0740 Sodium Chloride 500 ML Hydroxychloroquine 200 MG BID 01/04 220 AC 01/08 Sulfate PO 1006 Ibuprofen 800 MG TIDPRN PRN 01/04 1600 DC PO Ipratropium [place] 2.5 ML TID 01/05 1000 AC 01/08 INH 0911 Lactobacillus 1 CAP BID 01/06 0915 AC 01/08 Acidophilus PO 1009 Lorazepam 0.5 MG DAILY NEEDED PRN 01/04 1515 AC PO 01/11 1514 Metoprolol Succinate 25 MG QAM 01/05 1000 AC 01/08 PO 1009 Morphine Sulfate 1 MG Q6-PRN PRN 01/04 1530 AC IV Potassium Chloride 40 MEQ ONCE ONE 01/08 1000 DC 01/08 PO 01/08 1001 1010 Potassium Chloride 40 MEQ ONCE ONE 01/08 0730 DC 01/08 PO 01/08 0731 0755 Prednisone 5 MG DAILY 01/05 1000 AC 01/08 PO 1008 Pregabalin 75 MG BID 01/04 2200 AC 01/08 PO 1010 Vancomycin HCl 1,250 MG Q12 01/06 220 AC 01/08 Dextrose/Water 250 ML IV 1013 Results Last 48 Hrs of Labs/Mics: Laboratory Tests 01/08/17 0245: Anion Gap 10, Estimated GFR 47 L, BUN/Creatinine Ratio 16.7, Magnesium 2.5 H, APTT 66 H, CBC w Diff NO MAN DIFF REQ, RBC 2.87 L, MCV 85.3, MCH 27.2, RDW 18.0 H, MPV 7.0 L, Gran % 80.2 H, Lymphocytes % 13.2 L, Monocytes % 6.4, Eosinophils % 0, Basophils % 0.2, Absolute Granulocytes 10.6 H, Absolute Lymphocytes 1.7, Absolute Monocytes 0.8 H, Absolute Eosinophils 0, Absolute Basophils 0, PUBS MCHC 31.9 L 01/07/17 1858: APTT 45 H 01/07/17 1115: Anion Gap 9, Estimated GFR 58 L, BUN/Creatinine Ratio 19.0 01/07/17 0605: PT 17.9 H, INR 1.71 H, CBC w Diff NO MAN DIFF REQ, RBC 2.96 L, MCV 85.7, MCH 27.8, RDW 18.0 H, MPV 7.4, Gran % 86.1 H, Lymphocytes % 8.7 L, Monocytes % 4.9, Eosinophils % 0.2, Basophils % 0.1, Absolute Granulocytes 11.7 H, Absolute Lymphocytes 1.2, Absolute Monocytes 0.7 H, Absolute Eosinophils 0, Absolute Basophils 0, PUBS MCHC 32.4 L Assessment/Plan Assessment/Plan Assessment: 1. 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 Mild to moderate mitral regurgitation and mild to moderate rheumatic mitral stenosis 3. History of CVA 4. Acute diastolic heart failure 5. History of paroxysmal atrial fibrillation with supratherapeutic INR 6. Possible pneumonia 7. Mild acute renal insufficiency 8. Anemia 9. Elevated WBC - improving Recommendations: -Echocardiogram reviewed. The patient has severe aortic stenosis with an estimated valve area of 0.8 cm. She has evidence of rheumatic mitral valve disease with mild to moderate mitral insufficiency and mitral stenosis with an estimated mitral valve area 1.6 cm. -Extended discussion held with the patient and her . For now, I would favor keeping the patient in the hospital for more aggressive diuresis and optimization of medical status. -Nothing by mouth after midnight Wednesday for cardiac catheterization at [facility] with Dr. Cruz on Wednesday -Tentative plans for valve replacement surgery on Wednesday with Dr. Carney -Please hold the patient's warfarin. When the INR is less than or equal to 2.0 please start IV heparin for anticoagulation -Continue diuresis with IV Lasix twice a day; depending on creatinine levels. Nephrology input pending. -Continue current management as per pulmonary. -The overall situation, plan, etc. was discussed with the patient and her . They agree to proceed as outlined. - Back of diuresis pending Nephrology input and followup labs in AM - Aggressively replete potassium and maintain greater than 4.0 - Check followup INR to document normalization. Continue telemetry? Yes
[2017-01-08] MEDS ORDERED: HEPARIN-1/25000 UNI1 IV (14:51)
[2017-01-08] MEDS ORDERED: FUROSEMIDE10 MG/1 M1 IV (14:52)
--- NOTE | 2017-01-08 14:54 | Patient Discharge Instructions ---
Discharge Instructions General Discharge Information You were seen/treated for: Severe Aortic Stenosis Diffuse pneumonia Special Instructions: Please follow up with in a week Please follow up with in 2days Diet Continue normal diet: Yes Recommended Diet: Heart Healthy Activity Full Activity/No Limits: No Activity Self Limited: Yes Acute Coronary Syndrome Inclusion Criteria At DC or during hospital stay patient has or had the following: ACS DIAGNOSIS No Discharge Core Measures Meds if any: Prescribed or Continued at Discharge Meds if any: NOT Prescribed or Continued at Discharge Congestive Heart Failure Inclusion Criteria At DC or during hospital stay patient has or had the following: CHF DIAGNOSIS No Discharge Core Measures Meds if any: Prescribed or Continued at Discharge Meds if any: NOT Prescribed or Continued at Discharge Cerebrovascular accident Inclusion Criteria At DC or during hospital stay patient has or had the following: CVA/TIA Diagnosis No Discharge Core Measures Meds if any: Prescribed or Continued at Discharge Meds if any: NOT Prescribed or Continued at Discharge Venous thromboembolism Inclusion Criteria VTE Diagnosis No VTE Type NONE VTE Confirmed by (Test) NONE Discharge Core Measures - Per Current guidelines, there needs to be overlap - treatment for the first 5 days of Warfarin therapy. - If discharged on Warfarin prior to 5 days of - overlap therapy, the patient will need to be - assessed for post discharge needs including - *Post discharge parental anticoagulation - *Warfarin and/or parental anticoagulation education - *Follow up date to check INR post discharge At least 5 days overlap therapy as Inpatient No Meds if any: Prescribed or Continued at Discharge Note: Overlap Therapy is Warfarin and Anticoagulant Meds if any: NOT Prescribed or Continued at Discharge
[2017-01-08 15:59] LABS: PTT 62 SEC (25-37)
--- NOTE | 2017-01-08 16:09 | ULTRASOUND REPORT ---
EXAMINATION: US RETROPERITONEAL COMPLETE (RENAL) CLINICAL INFORMATION: Elevated creatinine level. History of nephrolithiasis. History of ureteral stents. Rule out renal stones. COMPARISON: Renal ultrasound dated 12/07/2016. CT scan of the chest dated 01/04/2017. TECHNIQUE: Real-time imaging of the kidneys and bladder. FINDINGS: RIGHT KIDNEY: 10.4 x 4.8 x 5.3 cm (SAG x AP x TRV). The kidney is normal in size, contour, and echogenicity. Renal cortical thickness is normal. No calculi or focal parenchymal lesions. No hydronephrosis. LEFT KIDNEY: 10.8 x 3.8 x 6.2 cm (SAG x AP x TRV). The kidney is normal in size, contour, and echogenicity. Renal cortical thickness is normal. In the upper pole of the left kidney, an echogenic linearly shaped 0.9 x 0.3 x 0.6 cm focus is seen, possibly corresponding to the known upper pole left renal calcification versus a prominent vascular interface. No focal parenchymal lesions. No hydronephrosis. BLADDER: Partially distended and unremarkable. Bilateral ureteral jets are demonstrated. Prevoid bladder volume is 92.9 mL. IMPRESSION: 1. Nonobstructing upper pole left renal calculus is suspected as seen on CT scan. No other renal calculi. 2. No hydronephrosis. 3. Bladder unremarkable.
[2017-01-08 16:36] VITALS: BP 112/68
[2017-01-09 00:03] VITALS: BP 108/78
[2017-01-09 03:35] LABS: PTT 59 SEC (25-37)
[2017-01-09 03:38] LABS: ABSOLUTE BASOPHIL COUNT 0.1 /CUMM (0.0-0.2); ABSOLUTE EOSINOPHIL COUNT 0.1 /CUMM (0.0-0.7); ABSOLUTE LYMPH COUNT 1.7 /CUMM (1.2-3.4); ABSOLUTE MONOCYTE COUNT 0.7 /CUMM (0.10-0.60); BASOPHIL % 0.5 % (0.0-2.0); EOSINOPHIL % 0.9 % (0-5); GRANULOCYTE % 80.9 % (42.2-75.2); MEAN CORPUSCULAR HGB 27.7 PG (27.0-31.0); MEAN CORPUSCULAR HGB CONC 32.4 G/DL (33.0-37.0); MEAN CORPUSCULAR VOLUME 85.4 FL (81.0-99.0); MEAN PLATELET VOLUME 7.4 FL (7.4-10.4); PLATELET COUNT 440 /CUMM (130-400); RBC DISTRIBUTION WIDTH 18.3 % (11.5-14.5); RED BLOOD CELL CT 2.81 /CUMM (4.20-5.40); WHITE BLOOD CELL COUNT 13.6 /CUMM (4.8-10.8)
--- NOTE | 2017-01-09 07:12 | PN- Housestaff ---
See Addendum Subjective Follow-up For: Severe aortic stenosis Diffuse pneumonia Hypoxic respiratory failure Complaints: no complaints Tele-Events Since Last Visit: Sinus rhythm 75-77 bpm no overnight events Subjective: Reviewed the patient seated comfortably on the bed watching television set reports to have slept very well. Overnight the lowest saturation she had was 89 % only one episode. She still on high flow oxygen at 60% and saturating around 98%. Review of Systems Constitutional: Denies: chills, fever. Cardiovascular: Denies: chest pain, palpitations. Respiratory: Denies: cough, short of breath. Comments: All Other systems reviewed and are negative Objective Last 24 Hrs of Vital Signs/I&O Vital Signs Date Time Temp Pulse Resp B/P Pulse O2 O2 Flow FiO2 Ox Delivery Rate 01/09 09 98.0 78 18 92/60 98 Room Air 01/09 0608 99 Nasal 60% Cannula 01/09 0457 91 Nasal 60% Cannula 01/09 0125 90 Nasal 70% Cannula 01/09 0003 98.4 77 24 108/78 91 01/09 0000 88 Nasal 50% Cannula 01/08 2200 89 Nasal 50% Cannula 01/08 1910 89 Nasal 50% Cannula 01/08 1636 98.6 87 18 112/68 92 Nasal 70% Cannula 01/08 1436 96 Nasal 75% Cannula 01/08 1200 93 Nasal 75% Cannula 01/08 1058 98 Nasal 60% Cannula 01/08 1009 81 118/70 01/08 1007 81 118/70 Intake & Output 01/09 1600 01/09 0800 01/09 0000 Intake Total 289.2 947.8 Output Total 300 900 Balance -10.8 47.8 Intake, IV 239.2 482.8 Intake, Oral 50 465 Number 1 Bowel Movements Output, Urine 300 900 Patient 176 lb Weight Physical Exam General Appearance: Alert, Oriented X3, Cooperative, No Acute Distress Skin: No Rashes HEENT: Atraumatic, Mucous Membr. moist/pink Neck: Supple Cardiovascular: Regular Rate, Normal S1, Normal S2 Lungs: Clear to Auscultation Abdomen: Normal Bowel Sounds, Soft Current Medications: Current Medications Sig/Lico Start time Last Medication Dose Route Stop Time Status Admin Acetaminophen 650 MG Q6P PRN 01/04 1530 AC 01/05 PO 1134 Albuterol Sulfate 3 ML TID 01/05 1000 AC 03/31 INH 1904 Amiodarone HCl 200 MG DAILY 01/05 1000 AC 01/08 PO 1007 Atorvastatin Calcium 10 MG QPM 01/04 2200 AC 01/08 PO 2101 Bupropion HCl 300 MG QAM 01/05 1000 AC 01/08 PO 1005 Ceftazidime 1,000 MG IQ8 01/05 1600 AC 01/09 IV 0757 Dipyridamole/Aspirin 1 CAP BID 01/04 2200 AC 01/08 PO 2100 Escitalopram Oxalate 10 MG QPM 01/04 2200 AC 01/08 PO 2101 Famotidine 20 MG TIDPRN PRN 01/04 1600 AC PO Furosemide 20 MG 7:30 AM, & 4:30 PM 01/05 1630 AC 01/09 IV 0757 Heparin Sodium 25,000 UNIT Q24H 01/07 0900 AC 01/08 (Porcine) IV 0740 Sodium Chloride 500 ML Hydroxychloroquine 200 MG BID 01/04 2200 AC 01/08 Sulfate PO 210 Ibuprofen 800 MG TIDPRN PRN 01/04 1600 DC PO Ipratropium [place] 2.5 ML TID 01/05 1000 AC 01/08 INH 1904 Lactobacillus 1 CAP BID 01/06 0915 AC 01/08 Acidophilus PO 2101 Lorazepam 0.5 MG DAILY NEEDED PRN 01/04 1515 AC PO 01/11 1514 Metoprolol Succinate 25 MG QAM 01/05 1000 AC 01/08 PO 1009 Morphine Sulfate 1 MG Q6-PRN PRN 01/04 1530 AC IV Potassium Chloride 40 MEQ ONCE ONE 01/08 1000 DC 01/08 PO 01/08 1001 1010 Prednisone 5 MG DAILY 01/05 1000 AC 01/08 PO 1008 Pregabalin 75 MG BID 01/04 2200 AC 01/08 PO 2101 Vancomycin HCl 1,250 MG Q12 01/06 220 DC 01/08 Dextrose/Water 250 ML IV 2133 Last 24 Hrs of Lab/Michael Results Last 24 Hrs of Labs/Mics: Laboratory Tests 01/09/17 0300: Anion Gap 11, Estimated GFR 39 L, BUN/Creatinine Ratio 15.0, APTT 59 H, CBC w Diff NO MAN DIFF REQ, RBC 2.81 L, MCV 85.4, MCH 27.7, RDW 18.3 H, MPV 7.4, Gran % 80.9 H, Lymphocytes % 12.5 L, Monocytes % 5.2, Eosinophils % 0.9, Basophils % 0.5, Absolute Granulocytes 11.0 H, Absolute Lymphocytes 1.7, Absolute Monocytes 0.7 H, Absolute Eosinophils 0.1, Absolute Basophils 0.1, PUBS MCHC 32.4 L 01/08/17 2131: Vancomycin Trough 28.5 H 01/08/17 1457: APTT 62 H Assessment/Plan Assessment: Patient is a 51 YO F with PMH significant for HTN, HFpEF, CVA in 2011 secondary to embolization of AV vegeation on Coumadin, rheumatic heart disease, fibromyalgia, seronegative rheumatoid arthritis on prednisone, and recurrent calcium oxalate stones s/p lithotripsy, who presents after a sudden onset of chest pressure and exertional dsypnea associated with flu-like and URI symptoms including sore throat, nasal congestion, nonproductive cough, subjective fever, chills, fatigue, headache, and generalized malaise. She was in her usual state until yesterday when she suddenly these symptoms. Suspected gram negative sepsis - possible health care acquired pneumonia/ Amiodarone side effect Oxygen satruation on admission 80%, requiring 6L of oxygen via NC. She is not oxygen dependent at home. Currently on high flow oxygen. DDx includes healthcare acquired PNA, heart failure exacerbation/Amiodarone side effect. Patient received ceftraixone, azithro and Solumedrol in the ED * Elevated lactic acid on admission * septic at the time of admission - lactic acid trended down with 1.2 * On ceftaz and vanco for suspected diffuse pneumonia (admitted in the past 90days) * Yesterday Vanco trough level measured at 21:30pm -was>20 next dose need to be held. * High flow oxygen (30%) and TRC neb tx as needed * Cough suppresants * Repeat CXR shows worsening of disease in the upper lobes, inflammatory vs infection. * White count appears to be improving on antibiotics - so we will continue IV antibiotics for now as per pulmonology. Sever Aortic Stenosis causing CHF * On IV lasix 20mg BID - monitor BP * Creatinine going up today 1.4, this patient might benefit from with held and Lasix and stabilizing renal function prior to catheterization * Needs replacement soon once stabilized. * ECHO - 0.8cm2 Aortic valve, so needs cath to evaluate for coronary arteries, understand exact size of aortic valve. * On IV heparin * Nothing by mouth after midnight Wednesday for cardiac catheterization at [facility] with Dr. Cruz on Wednesday * Tentative plans for valve replacement surgery on Wednesday with Dr. Carney Rheumatic heart disease with Mitral insufficiency * ECHO shows Mitral valve thickened. [id number] mitral stenosis. Moderate to mitral regurgitation. * Valve thickneing extending into subvalvular chordal structures. # HFpEF, HTN,prior CVA * prednisone 5mg daily * Continue metorplol succinate (Tpprol XL) 25mg for HTN * Cont home meds Aggrenox 1 cap PO BID and Lipitor 10 mg PO QPM * Appreciate cardio recs # Mental health * Ativan 0.5 mg PO PRN anxiety * Lexapro 10 mg PO QPM # RA, fibromyalgia * Continue plaquenil 200 mg PO BID * Continue lyrica 75 mg PO BID # CHF Diet - Chopped and Thin Liquids # Mild pain pathway # DVT PPx ALPs # Full code. Problem List: 1. CHF exacerbation 2. Hypoxia 3. Severe aortic stenosis Pain Ratin Pain Location: None Pain Goal: Remain pain free Pain Plan: tylenol when necessary Tomorrow's Labs & Rationales: BEP patient on IV Lasix DVT/Prophylaxis: pharmacological Consulting Request: Consulting Specialty: Cardiology Consulting Physician: Jacek Lira MD Reason for Consult: Aortic stenosis
[2017-01-09 09:00] VITALS: BP 92/60
[2017-01-09 11:14] LABS: PTT 67 SEC (25-37)
--- NOTE | 2017-01-09 11:55 | PN- Pulmonary ---
Subjective HPI/Critical Care Issues: The patient is awake and alert. She reports feeling improved overall. She has less shortness of breath. Her oxygen requirement has been reduced to less than 50% on high flow. Her oxygen saturations remain in the mid to high 90s. She offers no new complaints today. Objective Current Medications: Current Medications Sig/Lico Start time Last Medication Dose Route Stop Time Status Admin Acetaminophen 650 MG Q6P PRN 01/04 1530 AC 01/05 PO 1134 Albuterol Sulfate 3 ML TID 01/05 1000 AC 01/09 INH 0912 Amiodarone HCl 200 MG DAILY 01/05 1000 AC 01/09 PO 1058 Atorvastatin Calcium 10 MG QPM 01/04 2200 AC 01/08 PO 2101 Bupropion HCl 300 MG QAM 01/05 1000 AC 01/09 PO 1058 Ceftazidime 1,000 MG IQ8 01/05 1600 AC 01/09 IV 0757 Dipyridamole/Aspirin 1 CAP BID 01/04 2200 AC 01/09 PO 1058 Escitalopram Oxalate 10 MG QPM 01/04 2200 AC 01/08 PO 2101 Famotidine 20 MG TIDPRN PRN 01/04 1600 AC PO Furosemide 20 MG 7:30 AM, & 4:30 PM 01/05 1630 AC 01/09 IV 0757 Heparin Sodium 25,000 UNIT Q24H 01/07 0900 AC 01/08 (Porcine) IV 0740 Sodium Chloride 500 ML Hydroxychloroquine 200 MG BID 01/04 2200 AC 01/09 Sulfate PO 1058 Ipratropium [place] 2.5 ML TID 01/05 1000 AC 01/09 INH 0912 Lactobacillus 1 CAP BID 01/06 0915 AC 01/09 Acidophilus PO 1058 Lorazepam 0.5 MG DAILY NEEDED PRN 01/04 1515 AC PO 01/11 1514 Metoprolol Succinate 25 MG QAM 01/05 1000 AC 01/09 PO 1058 Morphine Sulfate 1 MG Q6-PRN PRN 01/04 1530 AC IV Prednisone 5 MG DAILY 01/05 1000 AC 01/09 PO 1058 Pregabalin 75 MG BID 01/04 2200 AC 01/09 PO 1058 Vancomycin HCl 1,250 MG Q12 01/06 2200 DC 01/08 Dextrose/Water 250 ML IV 2133 Vital Signs & I&O Last 24 Hrs of Vitals and I&O: Vital Signs Date Time Temp Pulse Resp B/P Pulse O2 O2 Flow FiO2 Ox Delivery Rate 01/09 1058 92/60 01/09 1058 92/60 01/09 0915 96 Nasal 50% Cannula 01/09 09 98.0 78 18 92/60 98 Room Air 01/09 0800 Nasal Cannula 01/09 0608 99 Nasal 60% Cannula 01/09 0457 91 Nasal 60% Cannula 01/09 0125 90 Nasal 70% Cannula 01/09 0003 98.4 77 24 108/78 91 01/09 0000 88 Nasal 50% Cannula 01/08 2200 89 Nasal 50% Cannula 01/08 1910 89 Nasal 50% Cannula 01/08 1636 98.6 87 18 112/68 92 Nasal 70% Cannula 01/08 1436 96 Nasal 75% Cannula 01/08 1200 93 Nasal 75% Cannula Intake & Output 01/09 1600 01/09 0800 01/09 0000 Intake Total 289.2 947.8 Output Total 300 900 Balance -10.8 47.8 Intake, IV 239.2 482.8 Intake, Oral 50 465 Number 1 Bowel Movements Output, Urine 300 900 Patient 176 lb Weight Physical Exam General Appearance: comfortable, awake and alert Ears, Nose, Throat: moist mucus membranes Respiratory: decreased breath sounds with left basilar crackles Cardiovascular: regular rate/rhythm, normal S1 and S2, grade 3/6 systolic murmur Gastrointestinal: soft, non-tender, positive bowel sounds Extremities: no edema, warm and dry Results Last 24 Hrs of Lab Results: Laboratory Tests 01/09/17 1008: APTT 67 H, Vancomycin Trough Pending 01/09/17 0300: Anion Gap 11, Estimated GFR 39 L, BUN/Creatinine Ratio 15.0, APTT 59 H, CBC w Diff NO MAN DIFF REQ, RBC 2.81 L, MCV 85.4, MCH 27.7, RDW 18.3 H, MPV 7.4, Gran % 80.9 H, Lymphocytes % 12.5 L, Monocytes % 5.2, Eosinophils % 0.9, Basophils % 0.5, Absolute Granulocytes 11.0 H, Absolute Lymphocytes 1.7, Absolute Monocytes 0.7 H, Absolute Eosinophils 0.1, Absolute Basophils 0.1, PUBS MCHC 32.4 L 01/08/17 2131: Vancomycin Trough 28.5 H 01/08/17 1457: APTT 62 H Diagnostic Data US Findings: 1. Nonobstructing upper pole left renal calculus is suspected as seen on CT scan. No other renal calculi. 2. No hydronephrosis. 3. Bladder unremarkable. Impression/Plan Impression/Plan Impression/Plan: 1. Hypoxemic respiratory failure with slightly improved oxygen requirement overnight, secondary to acute diastolic heart failure. 2. Bicuspid aortic valve versus rheumatic aortic valve disease and severe aortic stenosis. 3. Mild to moderate MR and [id number] rheumatic mitral stenosis. 4. Increased leukocytosis which may be steroid-related however superimposed pneumonia is being treated. 5. History of stroke. 6. Mild acute renal insufficiency. 7. Anemia without evidence of bleeding. Recommendations: * Plan is for cardiac catheterization on Wednesday, the patient should be made nothing by mouth Wednesday night. * Continue heparin drip. * Diuresis as per cardiology and nephrology. * On chronic prednisone for rheumatoid arthritis. * Check a follow-up chest x-ray tomorrow morning. * Continue ceftazidime. * Vancomycin on hold due to elevated trough level. * Attempt to wean supplemental oxygen down, maintain saturations greater than 92 %. * Continue nebs/TRC. * Continue all supportive care.
[2017-01-09 16:30] VITALS: BP 89/55
--- NOTE | 2017-01-09 17:56 | PN- Cardiology ---
Subjective Subjective: The patient is feeling better. Her oxygen requirements have decreased. Her blood pressure is still borderline. She is having no chest pain. Her creatinine has increased to 1.4 today. We will hold her afternoon IV Lasix. Objective Vital Signs and I&Os Vital Signs Date Time Temp Pulse Resp B/P Pulse O2 O2 Flow FiO2 Ox Delivery Rate 01/09 1630 99.0 75 23 89/55 91 Nasal 50% Cannula 01/09 1058 92/60 01/09 1058 92/60 01/09 0915 96 Nasal 50% Cannula 01/09 0900 98.0 78 18 92/60 98 Room Air 01/09 0800 Nasal Cannula 01/09 0608 99 Nasal 60% Cannula 01/09 0457 91 Nasal 60% Cannula 01/09 0125 90 Nasal 70% Cannula 01/09 0003 98.4 77 24 108/78 91 01/09 0000 88 Nasal 50% Cannula 01/08 2200 89 Nasal 50% Cannula 01/08 1910 89 Nasal 50% Cannula Intake & Output 01/09 1600 01/09 0800 01/09 0000 01/08 1600 01/08 0800 01/08 0000 Intake Total 978 289.2 947.8 916.2 240 448 Output Total 800 718 754 4538 300 1325 Balance 178 -10.8 47.8 -183.8 -60 -877 Intake, IV 258 239.2 482.8 556.2 208 Intake, Oral 720 50 465 360 240 240 Number 1 1 1 2 Bowel Movements Output, Urine 800 775 444 0548 300 1325 Patient 176 lb 177 lb 177 lb Weight Physical Exam: She is in no distress Lungs are clear Heart reveals prominent harsh systolic ejection murmur at the base There is no peripheral edema Current Medications: Current Medications Sig/Lico Start time Last Medication Dose Route Stop Time Status Admin Acetaminophen 650 MG Q6P PRN 01/04 1530 AC 01/05 PO 1134 Albuterol Sulfate 3 ML TID 01/05 1000 AC 01/09 INH 1352 Amiodarone HCl 200 MG DAILY 01/05 1000 AC 01/09 PO 1058 Atorvastatin Calcium 10 MG QPM 01/04 2200 AC 01/08 PO 2101 Bupropion HCl 300 MG QAM 01/05 1000 AC 01/09 PO 1058 Ceftazidime 1,000 MG IQ8 01/05 1600 DC 01/09 IV 0757 Dipyridamole/Aspirin 1 CAP BID 01/04 2200 AC 01/09 PO 1058 Escitalopram Oxalate 10 MG QPM 01/04 2200 AC 01/08 PO 2101 Famotidine 20 MG TIDPRN PRN 01/04 1600 AC PO Furosemide 20 MG 7:30 AM, & 4:30 PM 01/05 1630 AC 01/09 IV 0757 Heparin Sodium 25,000 UNIT Q24H 01/07 0900 AC 01/08 (Porcine) IV 0740 Sodium Chloride 500 ML Hydroxychloroquine 200 MG BID 01/04 220 AC 01/09 Sulfate PO 1058 Ipratropium [place] 2.5 ML TID 01/05 1000 AC 01/09 INH 1353 Lactobacillus 1 CAP BID 01/06 0915 AC 01/09 Acidophilus PO 1058 Lorazepam 0.5 MG DAILY NEEDED PRN 01/04 1515 AC PO 01/11 1514 Metoprolol Succinate 25 MG QAM 01/05 1000 AC 01/09 PO 1058 Morphine Sulfate 1 MG Q6-PRN PRN 01/04 1530 AC IV Prednisone 5 MG DAILY 01/05 1000 AC 01/09 PO 1058 Pregabalin 75 MG BID 01/04 220 AC 01/09 PO 1058 Vancomycin HCl 1,250 MG Q12 01/06 2200 DC 01/08 Dextrose/Water 250 ML IV 2132 Results Last 48 Hrs of Labs/Mics: Laboratory Tests 01/09/17 1008: APTT 67 H, Vancomycin Trough 28.5 H 01/09/17 0300: Anion Gap 11, Estimated GFR 39 L, BUN/Creatinine Ratio 15.0, APTT 59 H, CBC w Diff NO MAN DIFF REQ, RBC 2.81 L, MCV 85.4, MCH 27.7, RDW 18.3 H, MPV 7.4, Gran % 80.9 H, Lymphocytes % 12.5 L, Monocytes % 5.2, Eosinophils % 0.9, Basophils % 0.5, Absolute Granulocytes 11.0 H, Absolute Lymphocytes 1.7, Absolute Monocytes 0.7 H, Absolute Eosinophils 0.1, Absolute Basophils 0.1, PUBS MCHC 32.4 L 01/08/17 2131: Vancomycin Trough 28.5 H 01/08/17 1457: APTT 62 H 01/08/17 0245: Anion Gap 10, Estimated GFR 47 L, BUN/Creatinine Ratio 16.7, Magnesium 2.5 H, APTT 66 H, CBC w Diff NO MAN DIFF REQ, RBC 2.87 L, MCV 85.3, MCH 27.2, RDW 18.0 H, MPV 7.0 L, Gran % 80.2 H, Lymphocytes % 13.2 L, Monocytes % 6.4, Eosinophils % 0, Basophils % 0.2, Absolute Granulocytes 10.6 H, Absolute Lymphocytes 1.7, Absolute Monocytes 0.8 H, Absolute Eosinophils 0, Absolute Basophils 0, PUBS MCHC 31.9 L 01/07/17 1858: APTT 45 H Assessment/Plan Assessment/Plan The patient is clinically improved and feels much better. Her BUN and creatinine are slightly higher. We will hold her afternoon IV Lasix and check her BUN and creatinine before deciding on her morning Lasix tomorrow. Otherwise we'll continue the same medications and the plans are for transfer for cardiac catheterization on January 11. Continue telemetry? Yes
[2017-01-09 23:18] LABS: PTT 85 SEC (25-37)
[2017-01-09 23:33] VITALS: BP 90/60
--- NOTE | 2017-01-10 07:33 | PN- Housestaff ---
RUSLAN CROOKS,SANTO 01/10/17 0732: Subjective Follow-up For: Severe Aortic Stenosis Pneumonia Tele-Events Since Last Visit: Sinus rhythm, 72-80 bpm Subjective: I saw and examined the patient today morning She is doing much better, slept well. Currently on 30% oxygen, able to speak in full sentences. No fevers, chills. Review of Systems Constitutional: Reports: see HPI. Comments: ROS negative except the above. Objective Last 24 Hrs of Vital Signs/I&O Vital Signs Date Time Temp Pulse Resp B/P Pulse O2 O2 Flow FiO2 Ox Delivery Rate 01/10 0542 96 Nasal 50% Cannula 01/10 0110 89 Nasal 50% Cannula 01/10 0000 Nasal 50% Cannula 01/09 2333 97.9 77 20 90/60 95 Nasal Cannula 01/09 1832 96 Nasal 45% Cannula 01/09 1630 99.0 75 23 89/55 91 Nasal 50% Cannula 01/09 1600 Nasal 50% Cannula 01/09 1058 92/60 01/09 1058 92/60 01/09 0915 96 Nasal 50% Cannula 01/09 0900 98.0 78 18 92/60 98 Room Air 01/09 0800 Nasal Cannula Intake & Output 01/10 0800 01/10 0000 01/09 1600 Intake Total 258.4 898.4 978 Output Total 400 400 800 Balance -141.6 498.4 178 Intake, IV 258.4 258.4 258 Intake, Oral 640 720 Number 1 1 Bowel Movements Output, Urine 400 400 800 Patient 79.379 kg Weight Physical Exam General Appearance: Alert, Oriented X3, Cooperative Skin: No Rashes, No Breakdown, No Significant Lesion HEENT: Atraumatic, PERRLA, EOMI Neck: Supple, No JVD Cardiovascular: Normal S1, Pansystolic murmur, splitting of S2 Lungs: Clear to Auscultation, Normal Air Movement, on high flow oxygen Abdomen: Normal Bowel Sounds, Soft, No Tenderness Neurological: Normal Speech, Strength at 5/5 X4 Ext, Sensation Intact Extremities: No Clubbing, No Cyanosis, No Edema Vascular: Normal Pulses, Pulses Symmetrical Current Medications: Current Medications Sig/Lico Start time Last Medication Dose Route Stop Time Status Admin Acetaminophen 650 MG Q6P PRN 01/04 1530 AC 01/05 PO 1134 Albuterol Sulfate 3 ML TID 01/05 1000 AC 01/09 INH 1829 Amiodarone HCl 200 MG DAILY 01/05 1000 AC 01/09 PO 1058 Atorvastatin Calcium 10 MG QPM 01/04 2200 AC 01/09 PO 2156 Bupropion HCl 300 MG QAM 01/05 1000 AC 01/09 PO 1058 Ceftazidime 1,000 MG IQ8 01/10 0800 UNVr IV Ceftazidime 1,000 MG IQ8 01/05 1600 DC 01/09 IV 0757 Dipyridamole/Aspirin 1 CAP BID 01/04 2200 AC 01/09 PO 2156 Escitalopram Oxalate 10 MG QPM 01/04 2200 AC 01/09 PO 2156 Famotidine 20 MG TIDPRN PRN 01/04 1600 AC PO Furosemide 20 MG 7:30 AM, & 4:30 PM 01/05 1630 DC 01/09 IV 0757 Heparin Sodium 25,000 UNIT Q24H 01/07 0900 AC 01/09 (Porcine) IV 1755 Sodium Chloride 500 ML Hydroxychloroquine 200 MG BID 01/04 2200 AC 01/09 Sulfate PO 215 Ipratropium [place] 2.5 ML TID 01/05 1000 AC 01/09 INH 1829 Lactobacillus 1 CAP BID 01/06 0915 AC 01/09 Acidophilus PO 2156 Lorazepam 0.5 MG DAILY NEEDED PRN 01/04 1515 AC PO 01/11 1514 Metoprolol Succinate 25 MG QAM 01/05 1000 AC 01/09 PO 1058 Morphine Sulfate 1 MG Q6-PRN PRN 01/04 1530 AC IV Prednisone 5 MG DAILY 01/05 1000 AC 01/09 PO 1058 Pregabalin 75 MG BID 01/04 2200 AC 01/09 PO 2156 Vancomycin HCl 1,250 MG Q12 01/06 220 DC 01/08 Dextrose/Water 250 ML IV 2133 Last 24 Hrs of Lab/Michael Results Last 24 Hrs of Labs/Mics: Laboratory Tests 01/10/17 0700: Sodium Pending, Potassium Pending, Chloride Pending, Carbon Dioxide Pending, Anion Gap Pending, BUN Pending, Creatinine Pending, BUN/Creatinine Ratio Pending , CBC w Diff Pending, WBC Pending, RBC Pending, Hgb Pending, Hct Pending, MCV Pending, MCH Pending, RDW Pending, Plt Count Pending, MPV Pending, PUBS MCHC Pending 01/09/17 2215: APTT 85 H 01/09/17 1008: APTT 67 H, Vancomycin Trough 28.5 H Lines/Diet/Fluids Lines: peripheral lines Assessment/Plan Assessment: Patient is a 51 YO F with PMH significant for HTN, HFpEF, CVA in 2011 secondary to embolization of AV vegeation on Coumadin, rheumatic heart disease, fibromyalgia, seronegative rheumatoid arthritis on prednisone, and recurrent calcium oxalate stones s/p lithotripsy, who presents after a sudden onset of chest pressure and exertional dsypnea associated with flu-like and URI symptoms including sore throat, nasal congestion, nonproductive cough, subjective fever, chills, fatigue, headache, and generalized malaise. She was in her usual state until yesterday when she suddenly these symptoms. Suspected gram negative sepsis - possible health care acquired pneumonia/ Amiodarone side effect Oxygen satruation on admission 80%, requiring 6L of oxygen via NC. She is not oxygen dependent at home. Currently on high flow oxygen. DDx includes healthcare acquired PNA, heart failure exacerbation/Amiodarone side effect. Patient received ceftraixone, azithro and Solumedrol in the ED * Elevated lactic acid on admission * septic at the time of admission - lactic acid trended down with 1.2 * On ceftaz and vanco for suspected diffuse pneumonia (admitted in the past 90days) * Today vanco level is 14.9, gave a single dose of 1g vanco. will recheck random level tomorrow. * High flow oxygen (30%) and TRC neb tx as needed * Repeat CXR shows worsening of disease in the upper lobes, inflammatory vs infection. * White count appears to be improving on antibiotics - continue IV ceftaz Q12. Sever Aortic Stenosis causing CHF * Holding due to low BP and symptomatic improvement, however gave a single dose today with Blood transfusion. * Creatinine going up today 1.4 even after holding vanco. * Needs replacement soon once stabilized. * ECHO - 0.8cm2 Aortic valve, so needs cath to evaluate for coronary arteries, understand exact size of aortic valve. * On IV heparin - today guiac is positive, however no uzma blood seen. * Nothing by mouth after midnight today for cardiac catheterization at [facility] with Dr. Cruz on Wednesday * Tentative plans for valve replacement surgery on Wednesday with Dr. Carney Drop in H&H (7.6-->7.3-->7.6) * Slight drop in hb today from 7.6 to 7.3 - although insignificant and repeat levels are at baseline her [facility] is postive. * Transfused 1 units PRBC after type and screen in view of further drop with a single dose of furosemide CKD * creatinine at the time of admission is 0.8, however over the past 3 days it is increasing despite discontinuing Diclofenac, vanco after getting therapeutic levels. * Repeat BEP tomorrow * GFR dropped from >60 to 39 Rheumatic heart disease with Mitral insufficiency * ECHO shows Mitral valve thickened. [id number] mitral stenosis. Moderate to mitral regurgitation. * Valve thickneing extending into subvalvular chordal structures. # HFpEF, HTN,prior CVA * prednisone 5mg daily * Continue metorplol succinate (Tpprol XL) 25mg for HTN * Cont home meds Aggrenox 1 cap PO BID and Lipitor 10 mg PO QPM * Appreciate cardio recs # Mental health * Ativan 0.5 mg PO PRN anxiety * Lexapro 10 mg PO QPM # RA, fibromyalgia * Continue plaquenil 200 mg PO BID * Continue lyrica 75 mg PO BID # CHF Diet - Chopped and Thin Liquids # Mild pain pathway # DVT PPx ALPs # Full code. Problem List: 1. Hypoxia 2. (HFpEF) heart failure with preserved ejection fraction 3. Diarrhea 4. Severe aortic stenosis 5. Mitral stenosis 6. Mitral insufficiency and aortic stenosis 7. History of CVA (cerebrovascular accident) 8. Rheumatic fever with cardiac involvement Pain Ratin Pain Location: chest pain Pain Goal: Remain pain free Pain Plan: tylenol prn Tomorrow's Labs & Rationales: cbc to monitor Hb and white count BEP to monitor electrolytes and renal function Consulting Request: Consulting Specialty: Cardiology Consulting Physician: Jacek Lira MD Reason for Consult: Aortic [facility]6: Attending MD Review Statement Attending Statement Attending MD Statement: examined this patient, discuss w/resident/PA/ASSISTANT SHIFT SUPERVISOR, agreed w/resident/PA/ASSISTANT SHIFT SUPERVISOR, reviewed EMR data (avail) Attending Assessment/Plan: 51F PMH HTN, HFpEF, CVA in 2011 secondary to embolization of AV vegeation on Coumadin, rheumatic heart disease, fibromyalgia, seronegative rheumatoid arthritis on prednisone, and recurrent calcium oxalate stones s/p lithotripsy admitted with chest pain and shortness of breath, with CATHY pneumonia, severe , and mild fluid overload. Patient is feeling much better today, denies chest pain, still requiring high flow oxygen. Hgb dropping to 7.3 today. Plan - Continue on telemetry - Transfuse 1 unit pRBC - Give Lasix 20mg IV once - Continue heparin drip - Follow cardiology and pulmonary recommendations - Continue renally dosed Vancomycin and Ceftazidime - Continue home medications - Scheduled for cardiac catheterization tomorrow and possible valve replacement on Wednesday
[2017-01-10 08:15] LABS: ABSOLUTE BASOPHIL COUNT 0.1 /CUMM (0.0-0.2); ABSOLUTE EOSINOPHIL COUNT 0 /CUMM (0.0-0.7); ABSOLUTE LYMPH COUNT 1.6 /CUMM (1.2-3.4); ABSOLUTE MONOCYTE COUNT 0.7 /CUMM (0.10-0.60); BASOPHIL % 0.4 % (0.0-2.0); EOSINOPHIL % 0 % (0-5); GRANULOCYTE % 82.3 % (42.2-75.2); HEMATOCRIT 23.1 % (37-47); MEAN CORPUSCULAR HGB 27.1 PG (27.0-31.0); MEAN CORPUSCULAR HGB CONC 31.8 G/DL (33.0-37.0); MEAN CORPUSCULAR VOLUME 85.1 FL (81.0-99.0); MEAN PLATELET VOLUME 7.7 FL (7.4-10.4); PLATELET COUNT 440 /CUMM (130-400); RBC DISTRIBUTION WIDTH 18.7 % (11.5-14.5); RED BLOOD CELL CT 2.71 /CUMM (4.20-5.40); WHITE BLOOD CELL COUNT 13.4 /CUMM (4.8-10.8)
[2017-01-10 08:57] VITALS: BP 90/50
--- NOTE | 2017-01-10 09:28 | RADIOLOGY REPORT ---
EXAMINATION: XR PORTABLE CHEST CLINICAL INFORMATION: Diffuse pneumonia versus amiodarone side effect versus heart failure. COMPARISON: January 06, 2017 and studies dating back to October 19, 2011 TECHNIQUE: Portable AP view of the chest was obtained. FINDINGS: There is diffuse interstitial and airspace disease again seen similar to prior studies consistent with pulmonary edema of cardiogenic or noncardiogenic etiology. The cardiopericardial silhouette is upper limits of normal in size. No pneumothorax or significant pleural effusion identified. IMPRESSION: Pulmonary edema of cardiogenic or noncardiogenic etiology.
--- NOTE | 2017-01-10 10:50 | PN- Cardiology ---
Subjective Subjective: Dennise is feeling much better. She states this is her best day. She has no complaints of chest pain. Her breathing is acceptable. She remains on high flow oxygen. We held her IV Lasix yesterday and this morning because of rising BUN and creatinine. Today her BUN is 23 which is slightly higher than yesterday , and her creatinine is 1.4 which is the same. Her hematocrit is slightly lower at 23.1 with a hemoglobin of 7.3. This will need to be followed. Her platelet count is acceptable. She remains on IV heparin. Objective Vital Signs and I&Os Vital Signs Date Time Temp Pulse Resp B/P Pulse O2 O2 Flow FiO2 Ox Delivery Rate 01/10 1002 98/62 01/10 1001 98/62 01/10 0857 97.9 72 20 90/50 95 Nasal Cannula 01/10 0849 94 Nasal 40% Cannula 01/10 0542 96 Nasal 50% Cannula 01/10 0110 89 Nasal 50% Cannula 01/10 0000 Nasal 50% Cannula 01/09 2333 97.9 77 20 90/60 95 Nasal Cannula 01/09 1832 96 Nasal 45% Cannula 01/09 1630 99.0 75 23 89/55 91 Nasal 50% Cannula 01/09 1600 Nasal 50% Cannula 01/09 1058 92/60 01/09 1058 92/60 Intake & Output 01/10 1600 01/10 0800 01/10 0000 01/09 1600 01/09 0800 01/09 0000 Intake Total 258.4 898.4 978 289.2 947.8 Output Total 400 400 800 300 900 Balance -141.6 498.4 178 -10.8 47.8 Intake, IV 258.4 258.4 258 239.2 482.8 Intake, Oral 640 720 50 465 Number 1 1 1 Bowel Movements Output, Urine 400 400 800 300 900 Patient 175 lb 176 lb Weight Physical Exam: On physical she is comfortable HEENT exam is normal Chest is clear Heart reveals a harsh systolic ejection murmur at the base Extremities no edema Current Medications: Current Medications Sig/Lico Start time Last Medication Dose Route Stop Time Status Admin Acetaminophen 650 MG Q6P PRN 01/04 1530 AC 01/05 PO 1134 Albuterol Sulfate 3 ML TID 01/05 1000 AC 01/10 INH 0847 Amiodarone HCl 200 MG DAILY 01/05 1000 AC 01/10 PO 1001 Atorvastatin Calcium 10 MG QPM 01/04 2200 AC 01/09 PO 2156 Bupropion HCl 300 MG QAM 01/05 1000 AC 01/10 PO 1002 Ceftazidime 1,000 MG Q12H 01/10 0800 AC 01/10 IV 1001 Ceftazidime 1,000 MG IQ8 01/05 1600 DC 01/09 IV 0757 Dipyridamole/Aspirin 1 CAP BID 01/04 2200 AC 01/10 PO 1001 Escitalopram Oxalate 10 MG QPM 01/04 2200 AC 01/09 PO 2156 Famotidine 20 MG TIDPRN PRN 01/04 1600 AC PO Furosemide 20 MG 7:30 AM, & 4:30 PM 01/05 1630 DC 01/09 IV 0757 Heparin Sodium 25,000 UNIT Q24H 01/07 0900 AC 01/09 (Porcine) IV 1755 Sodium Chloride 500 ML Hydroxychloroquine 200 MG BID 01/04 2200 AC 01/10 Sulfate PO 1001 Ipratropium [place] 2.5 ML TID 01/05 1000 AC 01/10 INH 0847 Lactobacillus 1 CAP BID 01/06 0915 AC 01/10 Acidophilus PO 1002 Lorazepam 0.5 MG DAILY NEEDED PRN 01/04 1515 AC PO 01/11 1514 Metoprolol Succinate 25 MG QAM 01/05 1000 AC 01/10 PO 1002 Morphine Sulfate 1 MG Q6-PRN PRN 01/04 1530 AC IV Prednisone 5 MG DAILY 01/05 1000 AC 01/10 PO 1002 Pregabalin 75 MG BID 01/04 2200 AC 01/10 PO 1001 Results Last 48 Hrs of Labs/Mics: Laboratory Tests 01/10/17 0700: Anion Gap 6, Estimated GFR 39 L, BUN/Creatinine Ratio 16.4, CBC w Diff NO MAN DIFF REQ, RBC 2.71 L, MCV 85.1, MCH 27.1, RDW 18.7 H, MPV 7.7, Gran % 82.3 H, Lymphocytes % 12.3 L, Monocytes % 5.0, Eosinophils % 0, Basophils % 0.4, Absolute Granulocytes 11.0 H, Absolute Lymphocytes 1.6, Absolute Monocytes 0.7 H, Absolute Eosinophils 0, Absolute Basophils 0.1, PUBS MCHC 31.8 L, Random Vancomycin Pending 01/09/175: APTT 85 H 01/09/17 1008: APTT 67 H, Vancomycin Trough 28.5 H 01/09/17 0300: Anion Gap 11, Estimated GFR 39 L, BUN/Creatinine Ratio 15.0, APTT 59 H, CBC w Diff NO MAN DIFF REQ, RBC 2.81 L, MCV 85.4, MCH 27.7, RDW 18.3 H, MPV 7.4, Gran % 80.9 H, Lymphocytes % 12.5 L, Monocytes % 5.2, Eosinophils % 0.9, Basophils % 0.5, Absolute Granulocytes 11.0 H, Absolute Lymphocytes 1.7, Absolute Monocytes 0.7 H, Absolute Eosinophils 0.1, Absolute Basophils 0.1, PUBS MCHC 32.4 L 01/08/17 2131: Vancomycin Trough 28.5 H 01/08/17 1457: APTT 62 H Recent Imaging Studies: Today's chest x-ray still shows some pulmonary edema but it seems improved to me from previous x-ray. Assessment/Plan Assessment/Plan The patient is clinically improved and feels much better. Her BUN and creatinine are slightly higher. We will hold her Lasix again today. I would check her hemoglobin and hematocrit later today and if it has dropped at all then a unit of blood with 1 dose of IV Lasix would be indicated. Otherwise we' ll continue the same medications and the plans are for transfer for cardiac catheterization on January 11. Continue telemetry? Yes
--- NOTE | 2017-01-10 11:22 | PN- Pulmonary ---
Subjective HPI/Critical Care Issues: The patient is awake and alert. She reports feeling markedly improved today, and feels this is her best day while she has been in the hospital. She notes having less chest congestion. Her oxygen requirement has continued to decrease, noting she remains on 40% on high flow. She denies any chest pain, fever, chills or sputum production. She had a chest x-ray that showed diffuse interstitial and airspace disease consistent with pulmonary edema. Objective Current Medications: Current Medications Sig/Lico Start time Last Medication Dose Route Stop Time Status Admin Acetaminophen 650 MG Q6P PRN 01/04 1530 AC 01/05 PO 1134 Albuterol Sulfate 3 ML TID 01/05 1000 AC 01/10 INH 0847 Amiodarone HCl 200 MG DAILY 01/05 1000 AC 01/10 PO 1001 Atorvastatin Calcium 10 MG QPM 01/04 2200 AC 01/09 PO 2156 Bupropion HCl 300 MG QAM 01/05 1000 AC 01/10 PO 1002 Ceftazidime 1,000 MG Q12H 01/10 0800 AC 01/10 IV 1001 Ceftazidime 1,000 MG IQ8 01/05 1600 DC 01/09 IV 0757 Dipyridamole/Aspirin 1 CAP BID 01/04 2200 AC 01/10 PO 1001 Escitalopram Oxalate 10 MG QPM 01/04 2200 AC 01/09 PO 2156 Famotidine 20 MG TIDPRN PRN 01/04 1600 AC PO Furosemide 20 MG 7:30 AM, & 4:30 PM 01/05 1630 DC 01/09 IV 0757 Heparin Sodium 25,000 UNIT Q24H 01/07 0900 AC 01/10 (Porcine) IV 1051 Sodium Chloride 500 ML Hydroxychloroquine 200 MG BID 01/04 2200 AC 01/10 Sulfate PO 1001 Ipratropium [place] 2.5 ML TID 01/05 1000 AC 01/10 INH 0847 Lactobacillus 1 CAP BID 01/06 0915 AC 01/10 Acidophilus PO 1002 Lorazepam 0.5 MG DAILY NEEDED PRN 01/04 1515 AC PO 01/11 1514 Metoprolol Succinate 25 MG QAM 01/05 1000 AC 01/10 PO 1002 Morphine Sulfate 1 MG Q6-PRN PRN 01/04 1530 AC IV Prednisone 5 MG DAILY 01/05 1000 AC 01/10 PO 1002 Pregabalin 75 MG BID 01/04 2200 AC 01/10 PO 1001 Vital Signs & I&O Last 24 Hrs of Vitals and I&O: Vital Signs Date Time Temp Pulse Resp B/P Pulse O2 O2 Flow FiO2 Ox Delivery Rate 01/10 1002 98/62 01/10 1001 9801/10 0857 97.9 72 20 90/50 95 Nasal Cannula 01/10 0849 94 Nasal 40% Cannula 01/10 0542 96 Nasal 50% Cannula 01/10 0110 89 Nasal 50% Cannula 01/10 0000 Nasal 50% Cannula 01/09 2333 97.9 77 20 90/60 95 Nasal Cannula 01/09 1832 96 Nasal 45% Cannula 01/09 1630 99.0 75 23 89/55 91 Nasal 50% Cannula 01/09 1600 Nasal 50% Cannula Intake & Output 01/10 1600 01/10 0800 01/10 0000 Intake Total 258.4 898.4 Output Total 400 400 Balance -141.6 498.4 Intake, IV 258.4 258.4 Intake, Oral 640 Number 1 1 Bowel Movements Output, Urine 400 400 Patient 175 lb Weight Physical Exam General Appearance: comfortable, awake and alert Ears, Nose, Throat: moist mucus membranes Respiratory: decreased breath sounds with left basilar crackles Cardiovascular: regular rate/rhythm, normal S1 and S2, grade 3/6 systolic murmur Gastrointestinal: soft, non-tender, positive bowel sounds Extremities: no edema, warm and dry Results Last 24 Hrs of Lab Results: Laboratory Tests 01/10/17 1109: APTT Pending 01/10/17 0700: Anion Gap 6, Estimated GFR 39 L, BUN/Creatinine Ratio 16.4, CBC w Diff NO MAN DIFF REQ, RBC 2.71 L, MCV 85.1, MCH 27.1, RDW 18.7 H, MPV 7.7, Gran % 82.3 H, Lymphocytes % 12.3 L, Monocytes % 5.0, Eosinophils % 0, Basophils % 0.4, Absolute Granulocytes 11.0 H, Absolute Lymphocytes 1.6, Absolute Monocytes 0.7 H, Absolute Eosinophils 0, Absolute Basophils 0.1, PUBS MCHC 31.8 L, Random Vancomycin Pending 01/09/17 2215: APTT 85 H Impression/Plan Impression/Plan Impression/Plan: 1. Hypoxemic respiratory failure with slightly improved oxygen requirement overnight, secondary to acute diastolic heart failure. 2. Bicuspid aortic valve versus rheumatic aortic valve disease and severe aortic stenosis. 3. Mild to moderate MR and [id number] rheumatic mitral stenosis. 4. Increased leukocytosis which may be steroid-related however superimposed pneumonia is being treated. 5. History of stroke. 6. Mild acute renal insufficiency. 7. Anemia without evidence of bleeding, hemoglobin slightly worse today. Recommendations: * Plan is for cardiac catheterization on Wednesday, the patient should be made nothing by mouth Wednesday night. * Continue heparin drip. * Agree with checking a follow-up CBC later today, and transfusing with Lasix if necessary. * On chronic prednisone for rheumatoid arthritis - to continue. * Attempt to wean supplemental oxygen down, maintain saturations greater than 92 %. * Continue nebs/TRC. * Antibiotics as per primary team. * Continue all supportive care.
[2017-01-10 13:18] LABS: PTT 86 SEC (25-37)
[2017-01-10 16:50] VITALS: BP 84/56
[2017-01-10 16:50] LABS: ABSOLUTE BASOPHIL COUNT 0 /CUMM (0.0-0.2); ABSOLUTE EOSINOPHIL COUNT 0.1 /CUMM (0.0-0.7); ABSOLUTE GRANULOCYTE CT 13.4 /CUMM (1.4-6.5); ABSOLUTE LYMPH COUNT 1.4 /CUMM (1.2-3.4); ABSOLUTE MONOCYTE COUNT 0.6 /CUMM (0.10-0.60); BASOPHIL % 0.2 % (0.0-2.0); EOSINOPHIL % 0.7 % (0-5); MEAN CORPUSCULAR HGB 27.2 PG (27.0-31.0); MEAN CORPUSCULAR HGB CONC 31.8 G/DL (33.0-37.0); MEAN CORPUSCULAR VOLUME 85.6 FL (81.0-99.0); MEAN PLATELET VOLUME 7.8 FL (7.4-10.4); PLATELET COUNT 500 /CUMM (130-400); RED BLOOD CELL CT 2.81 /CUMM (4.20-5.40); WHITE BLOOD CELL COUNT 15.6 /CUMM (4.8-10.8)
[2017-01-10 16:51] LABS: GRANULOCYTE % 86.3 % (42.2-75.2)
[2017-01-10 22:29] VITALS: BP 100/62
[2017-01-10 23:35] LABS: PTT 107 SEC (25-37)
--- NOTE | 2017-01-11 07:12 | PN- Housestaff ---
Subjective Follow-up For: Severe awaiting cath pneumonia Tele-Events Since Last Visit: NSR 73-85bpm No overnight events Subjective: I saw and examined the patient today morning She is doing much better after the transfusion, currently on 4L oxygen. she offers no complaints, ready to go. Review of Systems Constitutional: Reports: see HPI. Comments: ROS negative except the above. Objective Last 24 Hrs of Vital Signs/I&O Vital Signs Date Time Temp Pulse Resp B/P Pulse O2 O2 Flow FiO2 Ox Delivery Rate 01/11 0000 Nasal 4.0L Cannula 01/10 2229 97.9 82 18 100/62 88 Nasal 4.0L Cannula 01/10 1903 94 Nasal 4.0L Cannula 01/10 1650 97.7 77 20 84/56 95 Nasal 4.0L Cannula 01/10 1600 Nasal 4.0L Cannula 01/10 1353 96 Nasal 4.0L Cannula 01/10 1200 93 Nasal 40% Cannula 01/10 1002 /01/10 1001 /01/10 0857 97.9 72 20 90/50 95 Nasal Cannula 01/10 0849 94 Nasal 40% Cannula 01/10 0800 Nasal 50% Cannula Intake & Output 01/11 0800 01/11 0000 01/10 1600 Intake Total 602.8 630 978 Output Total 1000 300 400 Balance -397.2 330 578 Intake, Blood 350 Product Intake, IV 232.8 510 258 Intake, Oral 20 120 720 Number 1 1 Bowel Movements Output, Urine 1000 300 400 Physical Exam General Appearance: Alert, Oriented X3, Cooperative Skin: No Rashes HEENT: Atraumatic, PERRLA, EOMI Neck: Supple Cardiovascular: Normal S1, pansystolic murmur, splitting S2 Lungs: Normal Air Movement, crackles at right base. Abdomen: Normal Bowel Sounds, Soft, No Tenderness Neurological: Normal Speech, Strength at 5/5 X4 Ext, Sensation Intact Extremities: No Clubbing, No Cyanosis, No Edema Vascular: Normal Pulses, Pulses Symmetrical Current Medications: Current Medications Sig/Lico Start time Last Medication Dose Route Stop Time Status Admin Acetaminophen 650 MG Q6P PRN 01/04 1530 AC 01/05 PO 1134 Acetylcysteine 600 MG BID 01/11 1000 AC 01/11 PO 1119 Albuterol Sulfate 3 ML TID 01/05 1000 AC 01/11 INH 0841 Amiodarone HCl 200 MG DAILY 01/05 1000 AC 01/11 PO 1101 Atorvastatin Calcium 10 MG QPM 01/04 2200 AC 01/10 PO 2117 Bupropion HCl 300 MG QAM 01/05 1000 AC 01/11 PO 1102 Ceftazidime 1,000 MG Q12H 01/10 0800 AC 01/11 IV 1059 Dipyridamole/Aspirin 1 CAP BID 01/04 2200 AC 01/11 PO 1101 Escitalopram Oxalate 10 MG QPM 01/04 2200 AC 01/10 PO 2117 Famotidine 20 MG TIDPRN PRN 01/04 1600 AC PO Furosemide 20 MG ONCE ONE 01/10 1845 DC 01/11 IV 01/10 1846 0122 Heparin Sodium 25,000 UNIT Q24H 01/07 0900 AC 01/10 (Porcine) IV 1051 Sodium Chloride 500 ML Hydroxychloroquine 200 MG BID 01/04 2200 AC 01/11 Sulfate PO 1102 Ipratropium [place] 2.5 ML TID 01/05 1000 AC 01/11 INH 0841 Lactobacillus 1 CAP BID 01/06 0915 AC 01/11 Acidophilus PO 1102 Lorazepam 0.5 MG DAILY NEEDED PRN 01/04 1515 AC PO 01/11 1514 Metoprolol Succinate 25 MG QAM 01/05 1000 AC 01/10 PO 1002 Morphine Sulfate 1 MG Q6-PRN PRN 01/04 1530 AC IV Prednisone 5 MG DAILY 01/05 1000 AC 01/11 PO 1102 Pregabalin 75 MG BID 01/04 2200 AC 01/11 PO 1105 Vancomycin HCl 1,000 MG ONCE ONE 01/10 1645 DC 01/10 Sodium Chloride 250 ML IV 01/10 1744 1847 Last 24 Hrs of Lab/Michael Results Last 24 Hrs of Labs/Mics: Laboratory Tests 01/11/17 0600: Anion Gap 13, Estimated GFR 39 L, BUN/Creatinine Ratio 12.9, APTT 59 H, CBC w Diff MAN DIFF ORDERED, RBC 3.36 L, MCV 85.5, MCH 27.6, RDW 17.9 H, MPV 8.2, Gran % 84.7 H, Lymphocytes % 10.0 L, Monocytes % 4.3, Eosinophils % 0.6, Basophils % 0.4, Absolute Granulocytes 16.4 H, Segmented Neutrophils 84 H, Band Neutrophils 2, Absolute Lymphocytes 1.9, Lymphocytes 9 L, Monocytes 4, Absolute Monocytes 0.8 H, Absolute Eosinophils 0.1, Absolute Basophils 0.1, Myelocytes 1 H, Nucleated RBCs 2 H, Platelet Estimate ADEQUATE, Polychromasia 1+, Hypochromic-Microcytic 1+, PUBS MCHC 32.2 L, Random Vancomycin 18.6 01/10/17 2305: APTT 107 *H 01/10/17 1537: CBC w Diff NO MAN DIFF REQ, RBC 2.81 L, MCV 85.6, MCH 27.2, RDW 19.0 H, MPV 7.8, Gran % 86.3 H, Lymphocytes % 8.9 L, Monocytes % 3.9, Eosinophils % 0.7, Basophils % 0.2, Absolute Granulocytes 13.4 H, Absolute Lymphocytes 1.4, Absolute Monocytes 0.6, Absolute Eosinophils 0.1, Absolute Basophils 0, PUBS MCHC 31.8 L Lines/Diet/Fluids Lines: peripheral lines Assessment/Plan Assessment: Patient is a 51 YO F with PMH significant for HTN, HFpEF, CVA in 2011 secondary to embolization of AV vegeation on Coumadin, rheumatic heart disease, fibromyalgia, seronegative rheumatoid arthritis on prednisone, and recurrent calcium oxalate stones s/p lithotripsy, who presents after a sudden onset of chest pressure and exertional dsypnea associated with flu-like and URI symptoms including sore throat, nasal congestion, nonproductive cough, subjective fever, chills, fatigue, headache, and generalized malaise. She was in her usual state until yesterday when she suddenly these symptoms. Suspected gram negative sepsis - possible health care acquired pneumonia/ Amiodarone side effect Oxygen satruation on admission 80%, requiring 6L of oxygen via NC. She is not oxygen dependent at home. Currently on high flow oxygen. DDx includes healthcare acquired PNA, heart failure exacerbation/Amiodarone side effect. Patient received ceftraixone, azithro and Solumedrol in the ED * Elevated lactic acid on admission - lactic acid trended down with 1.2 * On ceftaz and vanco for suspected diffuse pneumonia (admitted in the past 90days) * Today vanco level is 18 - holding dose today given Cr 1.4. * High flow oxygen (30%) and TRC neb tx as needed * Repeat CXR shows pulmonary edema. * White count still high - continue IV ceftaz Q12 till today and stop. Sever Aortic Stenosis causing CHF * Holding due to low BP and symptomatic improvement, however gave a single dose yesterday with Blood transfusion. * Creatinine going up today 1.4 even after holding vanco. * Needs replacement soon once stabilized. * ECHO - 0.8cm2 Aortic valve, so needs cath to evaluate for coronary arteries, understand exact size of aortic valve. * On IV heparin - today guiac is positive, however no uzma blood seen. * Today going to [facility] for catheterization. * Tentative plans for valve replacement surgery on Wednesday with Dr. Carney * Holded Metoprolol tartarate today morning in view of blood pressure. Drop in H&H (7.6-->7.3-->7.6) * Slight drop in hb yesterday from 7.6 to 7.3 - although insignificant and repeat levels are at baseline her guiac is postive. * Transfused 1 units PRBC after type and screen in view of further drop with a single dose of furosemide * Today her Hb is 9, after trasfusion with good improvement in shortness of breath. CKD * creatinine at the time of admission is 0.8, however over the past 3 days it is increasing despite discontinuing Diclofenac, vanco after getting therapeutic levels. * GFR dropped from >60 to 39 Rheumatic heart disease with Mitral insufficiency * ECHO shows Mitral valve thickened. [id number] mitral stenosis. Moderate to mitral regurgitation. * Valve thickneing extending into subvalvular chordal structures. # HFpEF, HTN,prior CVA * prednisone 5mg daily * Continue metorplol succinate (Tpprol XL) 25mg for HTN * Cont home meds Aggrenox 1 cap PO BID and Lipitor 10 mg PO QPM * Appreciate cardio recs # Mental health * Ativan 0.5 mg PO PRN anxiety * Lexapro 10 mg PO QPM # RA, fibromyalgia * Continue plaquenil 200 mg PO BID * Continue lyrica 75 mg PO BID # CHF Diet - Chopped and Thin Liquids # Mild pain pathway # DVT PPx ALPs # Full code. Problem List: 1. CHF exacerbation 2. Hypoxia 3. Pulmonary edema 4. Rheumatoid arthritis 5. Bicuspid aortic valve 6. Severe aortic stenosis 7. Mitral stenosis 8. Mitral insufficiency and aortic stenosis 9. Diarrhea 10. Rheumatic fever with cardiac involvement Pain Ratin Pain Location: chest pain Pain Goal: Pain 4 or less Pain Plan: tylenol prn Tomorrow's Labs & Rationales: none Consulting Request: Consulting Specialty: Cardiology Consulting Physician: Jacek Lira MD Reason for Consult: Aortic stenosis
[2017-01-11 08:14] LABS: ABSOLUTE BASOPHIL COUNT 0.1 /CUMM (0.0-0.2); ABSOLUTE EOSINOPHIL COUNT 0.1 /CUMM (0.0-0.7); MEAN PLATELET VOLUME 8.2 FL (7.4-10.4)
[2017-01-11 08:17] VITALS: BP 86/60
[2017-01-11 08:21] LABS: PTT 59 SEC (25-37)
[2017-01-11 08:47] LABS: ABSOLUTE GRANULOCYTE CT 16.4 /CUMM (1.4-6.5); ABSOLUTE LYMPH COUNT 1.9 /CUMM (1.2-3.4); ABSOLUTE MONOCYTE COUNT 0.8 /CUMM (0.10-0.60); BASOPHIL % 0.4 % (0.0-2.0); EOSINOPHIL % 0.6 % (0-5); GRANULOCYTE % 84.7 % (42.2-75.2); HEMATOCRIT 28.7 % (37-47); MEAN CORPUSCULAR HGB 27.6 PG (27.0-31.0); MEAN CORPUSCULAR HGB CONC 32.2 G/DL (33.0-37.0); MEAN CORPUSCULAR VOLUME 85.5 FL (81.0-99.0); PLATELET COUNT 455 /CUMM (130-400); RBC DISTRIBUTION WIDTH 17.9 % (11.5-14.5); RED BLOOD CELL CT 3.36 /CUMM (4.20-5.40); WHITE BLOOD CELL COUNT 19.4 /CUMM (4.8-10.8)
--- NOTE | 2017-01-11 09:04 | PN- Nephrology ---
Assessment/Plan Assessment: DAO - 2/2 Contrast induced nephropathy. Cannot rule out cardiorenal and hemodynamic factors given her valvular heart disease and hypotension. SCr has stabilized. Given that her creatinine has stabilized, would be reasonable to proceed with cardiac cath. She is at risk for further injury with the procedure which can be minimized based on how much contrast she needs. Injury from contrast is generally seen 48-72hrs after administration. Given that she developed this from the contrast used for the CT scan, I would not be surprised if she developed further injury with a cardiac cath. Ideally I would wait to make sure her SCr is stable/downtrending for 48-72hrs after the cath prior to proceeding with cardiac surgery. That being said, the urgency to do the procedure should outweigh these recommendations which are best applied to patients undergoing more elective procedures. Suggestion: -OK to proceed with cardiac cath today -Daily BMP's to monitor renal function post-cath -Cont NAC through today for a total of 4 doses (dose is generally 1200mg BID x2 days) -No NSAID's -No clear need for aggressive diuresis today Subjective Subjective: SCr remains stable at 1.4 for the last 3 days Getting NAC therapy Last dose of lasix on 01/11/17 Weight down 11lbs since admission BP soft - 86/60 WBC up to 19.4; no recent positive micro; afebrile Vanc level 18.6 Objective Vital Signs and I&Os Vital Signs Date Time Temp Pulse Resp B/P Pulse O2 O2 Flow FiO2 Ox Delivery Rate 01/11 0841 93 Nasal 3.0L Cannula 01/11 0817 98.1 73 18 86/60 97 Nasal 4.0L Cannula 01/11 0000 Nasal 4.0L Cannula 01/10 2229 97.9 82 18 100/62 88 Nasal 4.0L Cannula 01/10 1903 94 Nasal 4.0L Cannula 01/10 1650 97.7 77 20 84/56 95 Nasal 4.0L Cannula 01/10 1600 Nasal 4.0L Cannula 01/10 1353 96 Nasal 4.0L Cannula 01/10 1200 93 Nasal 40% Cannula 01/10 1002 98/62 /02 1001 98/62 Intake & Output 01/11 1600 01/11 0400 01/10 1600 01/10 0400 01/09 040 Intake Total 602.8 630 1236.4 898.4 1267.2 947.8 Output Total 1000 300 399 558 3590 900 Balance -397.2 330 436.4 498.4 167.2 47.8 Intake, Blood 350 Product Intake, IV 232.8 510 516.4 258.4 497.2 482.8 Intake, Oral 20 120 720 640 770 465 Number 1 2 1 1 Bowel Movements Output, Urine 1000 300 545 618 9362 900 Patient 175 lb 176 lb Weight Physical Exam: Gen - OK appearing HEENT - supple CV - RRR Chest - scant crackles Abd - soft, nontender Ext - no significant edema Neuro - AOX3 Current Medications: Current Medications Sig/Lico Start time Last Medication Dose Route Stop Time Status Admin Acetaminophen 650 MG Q6P PRN 01/04 1530 AC 01/05 PO 1134 Albuterol Sulfate 3 ML TID 01/05 1000 AC 01/11 INH 0841 Amiodarone HCl 200 MG DAILY 01/05 1000 AC 01/10 PO 1001 Atorvastatin Calcium 10 MG QPM 01/04 2200 AC 01/10 PO 2117 Bupropion HCl 300 MG QAM 01/05 1000 AC 01/10 PO 1002 Ceftazidime 1,000 MG Q12H 01/10 0800 AC 01/10 IV 2006 Dipyridamole/Aspirin 1 CAP BID 01/04 2200 AC 01/10 PO 2117 Escitalopram Oxalate 10 MG QPM 01/04 2200 AC 01/10 PO 2117 Famotidine 20 MG TIDPRN PRN 01/04 1600 AC PO Furosemide 20 MG ONCE ONE 01/10 1845 DC 01/11 IV 01/10 1846 0122 Heparin Sodium 25,000 UNIT Q24H 01/07 0900 AC 01/10 (Porcine) IV 1051 Sodium Chloride 500 ML Hydroxychloroquine 200 MG BID 01/04 2200 AC 01/10 Sulfate PO 2117 Ipratropium [place] 2.5 ML TID 01/05 1000 AC 01/11 INH 0841 Lactobacillus 1 CAP BID 01/06 0915 AC 01/10 Acidophilus PO 2117 Lorazepam 0.5 MG DAILY NEEDED PRN 01/04 1515 AC PO 01/11 1514 Metoprolol Succinate 25 MG QAM 01/05 1000 AC 01/10 PO 1002 Morphine Sulfate 1 MG Q6-PRN PRN 01/04 1530 AC IV Prednisone 5 MG DAILY 01/05 1000 AC 01/10 PO 1002 Pregabalin 75 MG BID 01/04 2200 AC 01/10 PO 2117 Vancomycin HCl 1,000 MG ONCE ONE 01/10 1645 DC 01/10 Sodium Chloride 250 ML IV 01/10 2074 2317 Results Pertinent Lab Results: Laboratory Tests 01/11 01/10 0600 2305 Chemistry Sodium (137 - 145 mmol/L) 138 Potassium (3.5 - 5.1 mmol/L) 4.4 Chloride (98 - 107 mmol/L) 102 Carbon Dioxide (22 - 30 mmol/L) 24 Anion Gap (5 - 16) 13 BUN (7 - 17 mg/dL) 18 H Creatinine (0.5 - 1.0 mg/dL) 1.4 H Estimated GFR (>60 ml/min) 39 L BUN/Creatinine Ratio (7 - 25 %) 12.9 Coagulation APTT (25 - 37 SEC) 59 H 107 *H Hematology CBC w Diff MAN DIFF ORDERED WBC (4.8 - 10.8 /CUMM) Pending RBC (4.20 - 5.40 /CUMM) Pending Hgb (12.0 - 16.0 G/DL) Pending Hct (37 - 47 %) Pending MCV (81.0 - 99.0 FL) Pending MCH (27.0 - 31.0 PG) Pending RDW (11.5 - 14.5 %) Pending Plt Count (130 - 400 /CUMM) Pending MPV (7.4 - 10.4 FL) Pending Gran % (42.2 - 75.2 %) Pending Lymphocytes % (20.5 - 51.1 %) Pending Monocytes % (1.7 - 9.3 %) Pending Eosinophils % (0 - 5 %) Pending Basophils % (0.0 - 2.0 %) Pending Absolute Granulocytes (1.4 - 6.5 /CUMM) Pending Segmented Neutrophils (42.2 - 75.2 %) Pending Absolute Lymphocytes (1.2 - 3.4 /CUMM) Pending Absolute Monocytes (0.10 - 0.60 /CUMM) Pending Absolute Eosinophils (0.0 - 0.7 /CUMM) Pending Absolute Basophils (0.0 - 0.2 /CUMM) Pending PUBS MCHC (33.0 - 37.0 G/DL) Pending Toxicology Random Vancomycin (ug/ml) Pending 01/10 01/10 1537 1109 Coagulation APTT (25 - 37 SEC) 86 H Hematology CBC w Diff NO MAN DIFF REQ WBC (4.8 - 10.8 /CUMM) 15.6 H RBC (4.20 - 5.40 /CUMM) 2.81 L Hgb (12.0 - 16.0 G/DL) 7.6 L Hct (37 - 47 %) 24.0 L MCV (81.0 - 99.0 FL) 85.6 MCH (27.0 - 31.0 PG) 27.2 RDW (11.5 - 14.5 %) 19.0 H Plt Count (130 - 400 /CUMM) 500 H MPV (7.4 - 10.4 FL) 7.8 Gran % (42.2 - 75.2 %) 86.3 H Lymphocytes % (20.5 - 51.1 %) 8.9 L Monocytes % (1.7 - 9.3 %) 3.9 Eosinophils % (0 - 5 %) 0.7 Basophils % (0.0 - 2.0 %) 0.2 Absolute Granulocytes (1.4 - 6.5 /CUMM) 13.4 H Absolute Lymphocytes (1.2 - 3.4 /CUMM) 1.4 Absolute Monocytes (0.10 - 0.60 /CUMM) 0.6 Absolute Eosinophils (0.0 - 0.7 /CUMM) 0.1 Absolute Basophils (0.0 - 0.2 /CUMM) 0 PUBS MCHC (33.0 - 37.0 G/DL) 31.8 L 01/10 01/09 01/09 0700 2215 1008 Chemistry Sodium (137 - 145 mmol/L) 134 L Potassium (3.5 - 5.1 mmol/L) 4.1 Chloride (98 - 107 mmol/L) 100 Carbon Dioxide (22 - 30 mmol/L) 28 Anion Gap (5 - 16) 6 BUN (7 - 17 mg/dL) 23 H Creatinine (0.5 - 1.0 mg/dL) 1.4 H Estimated GFR (>60 ml/min) 39 L BUN/Creatinine Ratio (7 - 25 %) 16.4 Coagulation APTT (25 - 37 SEC) 85 H 67 H Hematology CBC w Diff NO MAN DIFF REQ WBC (4.8 - 10.8 /CUMM) 13.4 H RBC (4.20 - 5.40 /CUMM) 2.71 L Hgb (12.0 - 16.0 G/DL) 7.3 *L Hct (37 - 47 %) 23.1 L MCV (81.0 - 99.0 FL) 85.1 MCH (27.0 - 31.0 PG) 27.1 RDW (11.5 - 14.5 %) 18.7 H Plt Count (130 - 400 /CUMM) 440 H MPV (7.4 - 10.4 FL) 7.7 Gran % (42.2 - 75.2 %) 82.3 H Lymphocytes % (20.5 - 51.1 %) 12.3 L Monocytes % (1.7 - 9.3 %) 5.0 Eosinophils % (0 - 5 %) 0 Basophils % (0.0 - 2.0 %) 0.4 Absolute Granulocytes (1.4 - 6.5 /CUMM) 11.0 H Absolute Lymphocytes (1.2 - 3.4 /CUMM) 1.6 Absolute Monocytes (0.10 - 0.60 /CUMM) 0.7 H Absolute Eosinophils (0.0 - 0.7 /CUMM) 0 Absolute Basophils (0.0 - 0.2 /CUMM) 0.1 PUBS MCHC (33.0 - 37.0 G/DL) 31.8 L Toxicology Vancomycin Trough (10.0 - 20.0 ug/mL) 28.5 H Random Vancomycin (ug/ml) 14.9 01/09 01/08 01/08 0300 2131 1457 Chemistry Sodium (137 - 145 mmol/L) 136 L Potassium (3.5 - 5.1 mmol/L) 3.9 Chloride (98 - 107 mmol/L) 99 Carbon Dioxide (22 - 30 mmol/L) 26 Anion Gap (5 - 16) 11 BUN (7 - 17 mg/dL) 21 H Creatinine (0.5 - 1.0 mg/dL) 1.4 H Estimated GFR (>60 ml/min) 39 L BUN/Creatinine Ratio (7 - 25 %) 15.0 Coagulation APTT (25 - 37 SEC) 59 H 62 H Hematology CBC w Diff NO MAN DIFF REQ WBC (4.8 - 10.8 /CUMM) 13.6 H RBC (4.20 - 5.40 /CUMM) 2.81 L Hgb (12.0 - 16.0 G/DL) 7.8 L Hct (37 - 47 %) 24.0 L MCV (81.0 - 99.0 FL) 85.4 MCH (27.0 - 31.0 PG) 27.7 RDW (11.5 - 14.5 %) 18.3 H Plt Count (130 - 400 /CUMM) 440 H MPV (7.4 - 10.4 FL) 7.4 Gran % (42.2 - 75.2 %) 80.9 H Lymphocytes % (20.5 - 51.1 %) 12.5 L Monocytes % (1.7 - 9.3 %) 5.2 Eosinophils % (0 - 5 %) 0.9 Basophils % (0.0 - 2.0 %) 0.5 Absolute Granulocytes (1.4 - 6.5 /CUMM) 11.0 H Absolute Lymphocytes (1.2 - 3.4 /CUMM) 1.7 Absolute Monocytes (0.10 - 0.60 /CUMM) 0.7 H Absolute Eosinophils (0.0 - 0.7 /CUMM) 0.1 Absolute Basophils (0.0 - 0.2 /CUMM) 0.1 PUBS MCHC (33.0 - 37.0 G/DL) 32.4 L Toxicology Vancomycin Trough (10.0 - 20.0 ug/mL) 28.5 H Imaging/Other Studies: EXAM TYPE: US - US-RENAL/KIDNEY EXAMINATION: US RETROPERITONEAL COMPLETE (RENAL) CLINICAL INFORMATION: Elevated creatinine level. History of nephrolithiasis. History of ureteral stents. Rule out renal stones. COMPARISON: Renal ultrasound dated 12/07/2016. CT scan of the chest dated 01/04/2017. TECHNIQUE: Real-time imaging of the kidneys and bladder. FINDINGS: RIGHT KIDNEY: 10.4 x 4.8 x 5.3 cm (SAG x AP x TRV). The kidney is normal in size, contour, and echogenicity. Renal cortical thickness is normal. No calculi or focal parenchymal lesions. No hydronephrosis. LEFT KIDNEY: 10.8 x 3.8 x 6.2 cm (SAG x AP x TRV). The kidney is normal in size, contour, and echogenicity. Renal cortical thickness is normal. In the upper pole of the left kidney, an echogenic linearly shaped 0.9 x 0.3 x 0.6 cm focus is seen, possibly corresponding to the known upper pole left renal calcification versus a prominent vascular interface. No focal parenchymal lesions. No hydronephrosis. BLADDER: Partially distended and unremarkable. Bilateral ureteral jets are demonstrated. Prevoid bladder volume is 92.9 mL. IMPRESSION: 1. Nonobstructing upper pole left renal calculus is suspected as seen on CT scan. No other renal calculi. 2. No hydronephrosis. 3. Bladder unremarkable. EXAM TYPE: RAD - XRY-PORTABLE CHEST XRAY EXAMINATION: XR PORTABLE CHEST CLINICAL INFORMATION: Diffuse pneumonia versus amiodarone side effect versus heart failure. COMPARISON: January 06, 2017 and studies dating back to October 19, 2011 TECHNIQUE: Portable AP view of the chest was obtained. FINDINGS: There is diffuse interstitial and airspace disease again seen similar to prior studies consistent with pulmonary edema of cardiogenic or noncardiogenic etiology. The cardiopericardial silhouette is upper limits of normal in size. No pneumothorax or significant pleural effusion identified. IMPRESSION: Pulmonary edema of cardiogenic or noncardiogenic etiology.
--- NOTE | 2017-01-11 09:45 | PN- Cardiology ---
Subjective Subjective: The patient reports that she is feeling well. She has not had any recent shortness of breath. No chest pain. No palpitations. No diaphoresis. No lightheadedness or dizziness. No nausea or vomiting. Objective Vital Signs and I&Os Vital Signs Date Time Temp Pulse Resp B/P Pulse O2 O2 Flow FiO2 Ox Delivery Rate 01/11 0841 93 Nasal 3.0L Cannula 01/11 0817 98.1 73 18 86/60 97 Nasal 4.0L Cannula 01/11 0000 Nasal 4.0L Cannula 01/10 2229 97.9 82 18 100/62 88 Nasal 4.0L Cannula 01/10 1903 94 Nasal 4.0L Cannula 01/10 1650 97.7 77 20 84/56 95 Nasal 4.0L Cannula 01/10 1600 Nasal 4.0L Cannula 01/10 1353 96 Nasal 4.0L Cannula 01/10 1200 93 Nasal 40% Cannula 01/10 1002 98/62 / 1001 98/62 Intake & Output 01/11 1600 01/11 0800 01/11 0000 01/10 1600 01/10 0800 01/10 0000 Intake Total 602.8 630 978 258.4 898.4 Output Total 1000 300 400 400 400 Balance -397.2 330 578 -141.6 498.4 Intake, Blood 350 Product Intake, IV 232.8 510 258 258.4 258.4 Intake, Oral 20 120 720 640 Number 1 1 1 1 Bowel Movements Output, Urine 1000 300 400 400 400 Patient 175 lb Weight Physical Exam: Gen: The patient is in no acute distress HEENT: Normal nose, ears, and oropharynx. Pupils equal bilaterally. Conjunctiva normal. Neck: Supple with no JVD, no masses, and no thyromegaly Lungs: Rales in the bases bilaterally with normal respiratory effort Heart: RRR, S1, S2, 3/6 systolic murmur. No peripheral edema, 2+ pulses in the lower extremities bilaterally Abdomen: Soft, nontender, no masses. No hepatomegaly. No splenomegaly Extremities: No clubbing or cyanosis. Normal muscle strength in the upper and lower extremities Skin: Normal skin turgor with no skin ulcers or lesions noted. Current Medications: Current Medications Sig/Lico Start time Last Medication Dose Route Stop Time Status Admin Acetaminophen 650 MG Q6P PRN 01/04 1530 AC 01/05 PO 1134 Albuterol Sulfate 3 ML TID 01/05 1000 AC 01/11 INH 0841 Amiodarone HCl 200 MG DAILY 01/05 1000 AC 01/10 PO 1001 Atorvastatin Calcium 10 MG QPM 01/04 2200 AC 01/10 PO 211 Bupropion HCl 300 MG QAM 01/05 1000 AC 01/10 PO 1002 Ceftazidime 1,000 MG Q12H 01/10 0800 AC 01/10 IV 2006 Dipyridamole/Aspirin 1 CAP BID 01/04 2200 AC 01/10 PO 211 Escitalopram Oxalate 10 MG QPM 01/04 2200 AC 01/10 PO 211 Famotidine 20 MG TIDPRN PRN 01/04 1600 AC PO Furosemide 20 MG ONCE ONE 01/10 1845 DC 01/11 IV 01/10 1846 0122 Heparin Sodium 25,000 UNIT Q24H 01/07 0900 AC 01/10 (Porcine) IV 1051 Sodium Chloride 500 ML Hydroxychloroquine 200 MG BID 01/04 2200 AC 01/10 Sulfate PO 2116 Ipratropium [place] 2.5 ML TID 01/05 1000 AC 01/11 INH 0841 Lactobacillus 1 CAP BID 01/06 0915 AC 01/10 Acidophilus PO 211 Lorazepam 0.5 MG DAILY NEEDED PRN 01/04 1515 AC PO 01/11 1514 Metoprolol Succinate 25 MG QAM 01/05 1000 AC 01/10 PO 1002 Morphine Sulfate 1 MG Q6-PRN PRN 01/04 1530 AC IV Prednisone 5 MG DAILY 01/05 1000 AC 01/10 PO 1002 Pregabalin 75 MG BID 01/04 2200 AC 01/10 PO 211 Vancomycin HCl 1,000 MG ONCE ONE 01/10 1645 DC 01/10 Sodium Chloride 250 ML IV 01/10 1744 1847 Results Last 48 Hrs of Labs/Mics: Laboratory Tests 01/11/17 0600: Anion Gap 13, Estimated GFR 39 L, BUN/Creatinine Ratio 12.9, APTT 59 H, CBC w Diff MAN DIFF ORDERED, RBC 3.36 L, MCV 85.5, MCH 27.6, RDW 17.9 H, MPV 8.2, Gran % 84.7 H, Lymphocytes % 10.0 L, Monocytes % 4.3, Eosinophils % 0.6, Basophils % 0.4, Absolute Granulocytes 16.4 H, Segmented Neutrophils 84 H, Band Neutrophils 2, Absolute Lymphocytes 1.9, Lymphocytes 9 L, Monocytes 4, Absolute Monocytes 0.8 H, Absolute Eosinophils 0.1, Absolute Basophils 0.1, Myelocytes 1 H, Nucleated RBCs 2 H, Platelet Estimate ADEQUATE, Polychromasia 1+, Hypochromic-Microcytic 1+, PUBS MCHC 32.2 L, Random Vancomycin 18.6 01/10/17 2305: APTT 107 *H 01/10/17 1537: CBC w Diff NO MAN DIFF REQ, RBC 2.81 L, MCV 85.6, MCH 27.2, RDW 19.0 H, MPV 7.8, Gran % 86.3 H, Lymphocytes % 8.9 L, Monocytes % 3.9, Eosinophils % 0.7, Basophils % 0.2, Absolute Granulocytes 13.4 H, Absolute Lymphocytes 1.4, Absolute Monocytes 0.6, Absolute Eosinophils 0.1, Absolute Basophils 0, PUBS MCHC 31.8 L 01/10/17 1109: APTT 86 H 01/10/17 0700: Anion Gap 6, Estimated GFR 39 L, BUN/Creatinine Ratio 16.4, CBC w Diff NO MAN DIFF REQ, RBC 2.71 L, MCV 85.1, MCH 27.1, RDW 18.7 H, MPV 7.7, Gran % 82.3 H, Lymphocytes % 12.3 L, Monocytes % 5.0, Eosinophils % 0, Basophils % 0.4, Absolute Granulocytes 11.0 H, Absolute Lymphocytes 1.6, Absolute Monocytes 0.7 H, Absolute Eosinophils 0, Absolute Basophils 0.1, PUBS MCHC 31.8 L, Random Vancomycin 14.9 01/09/17 2215: APTT 85 H 01/09/17 1008: APTT 67 H, Vancomycin Trough 28.5 H Recent Imaging Studies: Chest x-ray 01/10/17: Pulmonary edema of cardiogenic or noncardiogenic etiology. Assessment/Plan Assessment/Plan Assessment: 1. Bicuspid aortic valve 2. Severe aortic stenosis 3. Mild to moderate mitral regurgitation and mild to moderate mitral stenosis 4. History of CVA 5. Acute diastolic heart failure, improved 6. History of paroxysmal atrial fibrillation with supratherapeutic INR 7. Possible pneumonia Plan: * Nothing by mouth for cardiac catheterization. * Transfer to [facility] for cardiac catheterization today. * Hold Lasix prior to catheterization. * Start acetylcysteine 600 mg by mouth twice a day for prevention of contrast nephropathy. * Aortic valve replacement planned later this week. Continue telemetry? Yes
--- NOTE | 2017-01-11 09:57 | Cons- Thoracic Surgery ---
General Information and HPI Consulting Request Date of Consult: 01/11/17 Requested By: SUSSY CROOKS,MEREDITH Lira M.D. Reason for Consult: Evaluate for aortic and mitral valve disease Source of Information: patient, old records, PCP Exam Limitations: no limitations History of Present Illness: The patient is a 51-year-old woman with known aortic and mitral valve disease. She had a recent hospitalization with respiratory failure and there was a sense of progression of her aortic valve stenosis. Plans were made as an outpatient to evaluate her for possible valve surgery. She is readmitted now with a pneumonia and respiratory failure and opinion is asked regarding the possibility of cardiac surgical intervention on her aortic and mitral valve disease. Allergies/Medications Allergies: Coded Allergies: Sulfa (Sulfonamide Antibiotics) (N/V 01/04/17) Home Med List: Amiodarone HCl 200 MG TABLET 1 TAB PO DAILY HEART (Reported) Atorvastatin Calcium 10 MG TABLET 1 TAB PO QPM CHOLESTEROL (Reported) Bupropion HCl (Bupropion XL) 300 MG TAB.ER.24H 1 TAB PO QAM ANXIETY/DEPRESSION (Reported) Dipyridamole W/ Aspirin (Aggrenox 25 MG-200 MG Capsule) 25 MG-200 MG CPMP.12HR 1 CAP PO BID BLOOD THINNER (Reported) Escitalopram Oxalate (Lexapro) 10 MG TABLET 1 TAB PO QPM ANXIETY (Reported) Furosemide 20 MG TABLET 1 TAB PO DAILY CHF (Reported) Furosemide 10 MG/ML VIAL 20 MG IV 7:30 AM, & 4:30 PM heart failure Heparin (Heparin-1/2NS 25,000 Units/500) 25,000 UNIT/500 ML (50 UNIT/ML) IV.SOLN 1 BAG IV CONTINOUS INFUSION Atrial fibrillation Hydroxychloroquine Sulfate 200 MG TABLET 1 TAB PO BID RA (Reported) Ibuprofen/Famotidine (Duexis 800-26.6 MG Tablet) 800 MG-26.6 MG TABLET 1 TAB PO TID PRN RA (Reported) Lorazepam 0.5 MG TABLET 1 TAB PO DAILY PRN ANXIETY (Reported) Metoprolol Succinate 25 MG TAB 1 TAB PO QAM HEART (Reported) Prednisone 5 MG TABLET 1 TAB PO DAILY RA (Reported) Pregabalin (Lyrica) 75 MG CAPSULE 1 CAP PO BID FIBROMYALGIA (Reported) Warfarin Sodium 5 MG TABLET 1 TAB PO Wednesday BLOOD THINNER ( Reported) Warfarin Sodium (Coumadin) 2.5 MG TABLET 1 TAB PO AD BLOOD THINNER (Reported) Current Medications: Current Medications Sig/Lico Start time Last Medication Dose Route Stop Time Status Admin Acetaminophen 650 MG Q6P PRN 01/04 1530 AC 01/05 PO 1134 Acetylcysteine 600 MG BID 01/11 1000 UNVr PO Albuterol Sulfate 3 ML TID 01/05 1000 AC 01/11 INH 0841 Amiodarone HCl 200 MG DAILY 01/05 1000 AC 01/10 PO 1001 Atorvastatin Calcium 10 MG QPM 01/04 2200 AC 01/10 PO 2117 Bupropion HCl 300 MG QAM 01/05 1000 AC 01/10 PO 1002 Ceftazidime 1,000 MG Q12H 01/10 0800 AC 01/10 IV 2006 Dipyridamole/Aspirin 1 CAP BID 01/04 2200 AC 01/10 PO 2117 Escitalopram Oxalate 10 MG QPM 01/04 2200 AC 01/10 PO 2117 Famotidine 20 MG TIDPRN PRN 01/04 1600 AC PO Furosemide 20 MG ONCE ONE 01/10 1845 DC 01/11 IV 01/10 1846 0122 Heparin Sodium 25,000 UNIT Q24H 01/07 0900 AC 01/10 (Porcine) IV 1051 Sodium Chloride 500 ML Hydroxychloroquine 200 MG BID 01/04 2200 AC 01/10 Sulfate PO 211 Ipratropium [place] 2.5 ML TID 01/05 1000 AC 01/11 INH 0841 Lactobacillus 1 CAP BID 01/06 0915 AC 01/10 Acidophilus PO 2117 Lorazepam 0.5 MG DAILY NEEDED PRN 01/04 1515 AC PO 01/11 1514 Metoprolol Succinate 25 MG QAM 01/05 1000 AC 01/10 PO 1002 Morphine Sulfate 1 MG Q6-PRN PRN 01/04 1530 AC IV Prednisone 5 MG DAILY 01/05 1000 AC 01/10 PO 1002 Pregabalin 75 MG BID 01/04 2200 AC 01/10 PO 2117 Vancomycin HCl 1,000 MG ONCE ONE 01/10 1645 DC 01/10 Sodium Chloride 250 ML IV 01/10 1744 1847 Past History Medical History Blood Transfusion Hx: No Neurological: CVA Cardiovascular: AFIB, CHF, hypertension, myocardial infarction, HYPERLIPIDEMIA RHEAMATIC HEART DISEASE AORTIC STENOSIS Respiratory: MULTILOBAR PNEUMONIA W/ INTUBATION Renal: nephrolithiasis Musculoskeletal: fibromyalgia, rheumatoid arthritis Psychiatric: anxiety Endocrine: NONE Blood Disorders: NONE Cancer(s): NONE 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 Home Who Do You Live With? spouse Services at Home: None Primary Language: Senegalese Smoking Status: Former Smoker ETOH Use: denies use Illicit Drug Use: denies illicit drug use Functional Ability ADLs Independent: dressing, eating, toileting, bathing. Ambulation: independent IADLs Independent: shopping, housework, finances, food prep, telephone, transportation , medication admin. Review of Systems Review of Systems: Her admitting dyspnea has improved. She has had no chest pain. There've been no fevers night sweats or chills. She has had no hemoptysis. There is been no syncope or presyncope. The respiratory 12 point review of systems is unremarkable. Exam & Diagnostic Data Vital Signs and I&O Vital Signs Date Time Temp Pulse Resp B/P Pulse O2 O2 Flow FiO2 Ox Delivery Rate 01/11 0841 93 Nasal 3.0L Cannula 01/11 0817 98.1 73 18 86/60 97 Nasal 4.0L Cannula 01/11 0000 Nasal 4.0L Cannula 01/10 2229 97.9 82 18 100/62 88 Nasal 4.0L Cannula 01/10 1903 94 Nasal 4.0L Cannula 01/10 1650 97.7 77 20 84/56 95 Nasal 4.0L Cannula 01/10 1600 Nasal 4.0L Cannula 01/10 1353 96 Nasal 4.0L Cannula 01/10 1200 93 Nasal 40% Cannula 01/10 1002 98/62 /02 1001 98/62 Intake & Output 01/11 1600 01/11 0800 01/11 0000 01/10 1600 01/10 0800 01/10 0000 Intake Total 602.8 630 978 258.4 898.4 Output Total 1000 300 400 400 400 Balance -397.2 330 578 -141.6 498.4 Intake, Blood 350 Product Intake, IV 232.8 510 258 258.4 258.4 Intake, Oral 20 120 720 640 Number 1 1 1 1 Bowel Movements Output, Urine 1000 300 400 400 400 Patient 175 lb Weight Physical Exam: On physical examination she is resting comfortably in bed and is not dyspneic on conversation. Her skin is warm and well perfused no suspicious lesions noted. The sclerae are anicteric and mucous membranes are moist. There is no cervical or supraclavicular lymphadenopathy. Heart shows a regular rhythm and rate with a 3/6 systolic ejection murmur heard over the precordium. Her breath sounds show rales at the bases bilaterally. Her abdomen is soft and nontender with no masses. The periphery shows no cyanosis clubbing or edema. Her neurologic exam is grossly normal motor and sensory function. Last 24 Hours of Labs: Laboratory Tests 01/11 01/10 0600 2305 Chemistry Sodium (137 - 145 mmol/L) 138 Potassium (3.5 - 5.1 mmol/L) 4.4 Chloride (98 - 107 mmol/L) 102 Carbon Dioxide (22 - 30 mmol/L) 24 Anion Gap (5 - 16) 13 BUN (7 - 17 mg/dL) 18 H Creatinine (0.5 - 1.0 mg/dL) 1.4 H Estimated GFR (>60 ml/min) 39 L BUN/Creatinine Ratio (7 - 25 %) 12.9 Coagulation APTT (25 - 37 SEC) 59 H 107 *H Hematology CBC w Diff MAN DIFF ORDERED WBC (4.8 - 10.8 /CUMM) 19.4 H RBC (4.20 - 5.40 /CUMM) 3.36 L Hgb (12.0 - 16.0 G/DL) 9.3 L Hct (37 - 47 %) 28.7 L MCV (81.0 - 99.0 FL) 85.5 MCH (27.0 - 31.0 PG) 27.6 RDW (11.5 - 14.5 %) 17.9 H Plt Count (130 - 400 /CUMM) 455 H MPV (7.4 - 10.4 FL) 8.2 Gran % (42.2 - 75.2 %) 84.7 H Lymphocytes % (20.5 - 51.1 %) 10.0 L Monocytes % (1.7 - 9.3 %) 4.3 Eosinophils % (0 - 5 %) 0.6 Basophils % (0.0 - 2.0 %) 0.4 Absolute Granulocytes (1.4 - 6.5 /CUMM) 16.4 H Segmented Neutrophils (42.2 - 75.2 %) 84 H Band Neutrophils (0.0 - 5.0 %) 2 Absolute Lymphocytes (1.2 - 3.4 /CUMM) 1.9 Lymphocytes (20.5 - 51.1 %) 9 L Monocytes (1.7 - 9.3 %) 4 Absolute Monocytes (0.10 - 0.60 /CUMM) 0.8 H Absolute Eosinophils (0.0 - 0.7 /CUMM) 0.1 Absolute Basophils (0.0 - 0.2 /CUMM) 0.1 Myelocytes (0 - 0 %) 1 H Nucleated RBCs (0.0 - 0.0 /100WBC) 2 H Platelet Estimate (ADEQUATE) ADEQUATE Polychromasia 1+ Hypochromic-Microcytic 1+ PUBS MCHC (33.0 - 37.0 G/DL) 32.2 L Toxicology Random Vancomycin (ug/ml) 18.6 04/02 04/ 1537 1109 Coagulation APTT (25 - 37 SEC) 86 H Hematology CBC w Diff NO MAN DIFF REQ WBC (4.8 - 10.8 /CUMM) 15.6 H RBC (4.20 - 5.40 /CUMM) 2.81 L Hgb (12.0 - 16.0 G/DL) 7.6 L Hct (37 - 47 %) 24.0 L MCV (81.0 - 99.0 FL) 85.6 MCH (27.0 - 31.0 PG) 27.2 RDW (11.5 - 14.5 %) 19.0 H Plt Count (130 - 400 /CUMM) 500 H MPV (7.4 - 10.4 FL) 7.8 Gran % (42.2 - 75.2 %) 86.3 H Lymphocytes % (20.5 - 51.1 %) 8.9 L Monocytes % (1.7 - 9.3 %) 3.9 Eosinophils % (0 - 5 %) 0.7 Basophils % (0.0 - 2.0 %) 0.2 Absolute Granulocytes (1.4 - 6.5 /CUMM) 13.4 H Absolute Lymphocytes (1.2 - 3.4 /CUMM) 1.4 Absolute Monocytes (0.10 - 0.60 /CUMM) 0.6 Absolute Eosinophils (0.0 - 0.7 /CUMM) 0.1 Absolute Basophils (0.0 - 0.2 /CUMM) 0 PUBS MCHC (33.0 - 37.0 G/DL) 31.8 L Imaging Results: Echocardiogram shows severe aortic stenosis and moderate to severe mixed mitral stenosis and regurgitation. Assessment/Plan Assessment/Plan The patient is a 51-year-old woman with known valvular heart disease who was planning on moving forward with evaluation for valve replacement as an outpatient. I think this hospitalization shows that we will continue to have difficulty managing her as an outpatient. I agree with plans for transfer to [facility] for cardiac catheterization. We will plan valve replacement surgery later this week. My anticipation is that she will require both aortic valve replacement and mitral valve replacement. Will be for mechanical valve replacement. The patient is on Coumadin for atrial fibrillation and has had no problems with her Coumadin anticoagulation. We will also put a clip on the left atrial appendage. Further definitive discussion will happen after the catheterization but again the tentative plans are for double valve replacement with left atrium appendage clip later this week at [facility]. Consult Acknowledgment - Thank you for your consult request.
[2017-01-11 10:40] VITALS: BP 100/64
[2017-01-11 11:29] VITALS: BP 100/64
--- NOTE | 2017-01-11 12:06 | PN- Pulmonary ---
Subjective HPI/Critical Care Issues: pt seen and examined off high flow awaiting transfer to [facility] for cath doing much better Objective Current Medications: Current Medications Sig/Lico Start time Last Medication Dose Route Stop Time Status Admin Acetaminophen 650 MG Q6P PRN 01/04 1530 DCD 01/05 PO 1134 Acetylcysteine 600 MG BID 01/11 1000 DCD 01/11 PO 1119 Albuterol Sulfate 3 ML TID 01/05 1000 DCD 01/11 INH 0841 Amiodarone HCl 200 MG DAILY 01/05 1000 DCD 01/11 PO 1101 Atorvastatin Calcium 10 MG QPM 01/04 2200 DCD 01/10 PO 2117 Bupropion HCl 300 MG QAM 01/05 1000 DCD 01/11 PO 1102 Ceftazidime 1,000 MG Q12H 01/10 0800 DCD 01/11 IV 1059 Dipyridamole/Aspirin 1 CAP BID 01/04 2200 DCD 01/11 PO 1101 Escitalopram Oxalate 10 MG QPM 01/04 2200 DCD 01/10 PO 2117 Famotidine 20 MG TIDPRN PRN 01/04 1600 DCD PO Furosemide 20 MG ONCE ONE 01/10 1845 DC 01/11 IV 01/10 1846 0122 Heparin Sodium 25,000 UNIT Q24H 01/07 0900 DCD 01/10 (Porcine) IV 1051 Sodium Chloride 500 ML Hydroxychloroquine 200 MG BID 01/04 2200 DCD 01/11 Sulfate PO 1102 Ipratropium [place] 2.5 ML TID 01/05 1000 DCD 01/11 INH 0841 Lactobacillus 1 CAP BID 01/06 0915 DCD 01/11 Acidophilus PO 1102 Lorazepam 0.5 MG DAILY NEEDED PRN 01/04 1515 DCD PO 01/11 1514 Metoprolol Succinate 25 MG QAM 01/05 1000 DCD 01/10 PO 1002 Morphine Sulfate 1 MG Q6-PRN PRN 01/04 1530 DCD IV Prednisone 5 MG DAILY 01/05 1000 DCD 01/11 PO 1102 Pregabalin 75 MG BID 01/04 2200 DCD 01/11 PO 1105 Vancomycin HCl 1,000 MG ONCE ONE 01/10 1645 DC 01/10 Sodium Chloride 250 ML IV 01/10 1744 1847 Vital Signs & I&O Last 24 Hrs of Vitals and I&O: Vital Signs Date Time Temp Pulse Resp B/P Pulse O2 O2 Flow FiO2 Ox Delivery Rate 01/11 1129 86 100/64 01/11 1101 86 100/64 01/11 1040 86 100/64 01/11 0841 93 Nasal 3.0L Cannula 01/11 0817 98.1 73 18 86/60 97 Nasal 4.0L Cannula 01/11 0800 95 Nasal 3.0L Cannula 01/11 0000 Nasal 4.0L Cannula 01/10 2229 97.9 82 18 100/62 88 Nasal 4.0L Cannula 01/10 1903 94 Nasal 4.0L Cannula 01/10 1650 97.7 77 20 84/56 95 Nasal 4.0L Cannula 01/10 1600 Nasal 4.0L Cannula 01/10 1353 96 Nasal 4.0L Cannula Intake & Output 01/11 1600 01/11 0800 01/11 0000 Intake Total 602.8 630 Output Total 1000 300 Balance -397.2 330 Intake, Blood 350 Product Intake, IV 232.8 510 Intake, Oral 20 120 Number 1 Bowel Movements Output, Urine 1000 300 Patient 177 lb Weight Exam Other Physical Findings: gen awake and alert heent ncat cvs s1, s2, + murmur lungs rare rhonchi and bibasilar crackles abd soft bs+ ext without edema Results Last 24 Hrs of Lab Results: Laboratory Tests 01/11/17 0600: Anion Gap 13, Estimated GFR 39 L, BUN/Creatinine Ratio 12.9, APTT 59 H, CBC w Diff MAN DIFF ORDERED, RBC 3.36 L, MCV 85.5, MCH 27.6, RDW 17.9 H, MPV 8.2, Gran % 84.7 H, Lymphocytes % 10.0 L, Monocytes % 4.3, Eosinophils % 0.6, Basophils % 0.4, Absolute Granulocytes 16.4 H, Segmented Neutrophils 84 H, Band Neutrophils 2, Absolute Lymphocytes 1.9, Lymphocytes 9 L, Monocytes 4, Absolute Monocytes 0.8 H, Absolute Eosinophils 0.1, Absolute Basophils 0.1, Myelocytes 1 H, Nucleated RBCs 2 H, Platelet Estimate ADEQUATE, Polychromasia 1+, Hypochromic-Microcytic 1+, PUBS MCHC 32.2 L, Random Vancomycin 18.6 01/10/17 2305: APTT 107 *H 01/10/17 1537: CBC w Diff NO MAN DIFF REQ, RBC 2.81 L, MCV 85.6, MCH 27.2, RDW 19.0 H, MPV 7.8, Gran % 86.3 H, Lymphocytes % 8.9 L, Monocytes % 3.9, Eosinophils % 0.7, Basophils % 0.2, Absolute Granulocytes 13.4 H, Absolute Lymphocytes 1.4, Absolute Monocytes 0.6, Absolute Eosinophils 0.1, Absolute Basophils 0, PUBS MCHC 31.8 L Impression/Plan Impression/Plan Impression/Plan: Impression 51 year old woman * dyspnea and hypoxemic respiratory failure * valve related congestive heart failure * improved pulmonary edema * Leukocytosis maybe steroid related, tx with abx in meantime Plan - cardiology follow up - plan for cath - on heparin gtt - abx course, leukocytosis monitoring - cath and valve workup per cardiology - on prednisone for RA DVT prophylaxis at all times
== END 2017-01-11 11:40 | disposition short-term general hospital (02) | DRG 720 ==
LOC: ENRESERVDT → ENRESERVTM → ERH 10:32 → ERHI 13:23 → 1NO 17:36 → ENPENDDIS 01-05 13:15 → 1NO 01-05 13:36
PROVIDERS: Internal Medicine; Ophthalmology; Physician Assistant Medical; Preventive Medicine Public Health & General Preventive Medicine; ADMIT Internal Medicine
DX: A41.9 Sepsis, unspecified organism (principal); R65.20 Severe sepsis without septic shock; J96.01 Acute respiratory failure with hypoxia; I11.0 Hypertensive heart disease with heart failure; I50.33 Acute on chronic diastolic (congestive) heart failure; J15.6 Pneumonia due to other Gram-negative bacteria; M06.9 Rheumatoid arthritis, unspecified; M79.7 Fibromyalgia; N17.9 Acute kidney failure, unspecified; F41.8 Other specified anxiety disorders; I08.0 Rheumatic disorders of both mitral and aortic valves; I48.0 Paroxysmal atrial fibrillation; E78.5 Hyperlipidemia, unspecified; Z87.891 Personal history of nicotine dependence
CPT/HCPCS: 1NP; 36415; 76775; 81003; 82436; 86920; 87040; 87070; 87086; 87449; 87450; 87804; 87804-59; 93005; 93010; 93306; 93308; 93321; 96374; 96375; 99291; J0456; J0696; J0713; J1644; J1940; J2930; J3370; J7040; J7060; J7512; P9016

== ENCOUNTER 2017-03-15 10:24 | Emergency (ER) | payer OTHER ==
[~2017-03-15] VITALS: Ht 165.1 cm; Wt 79.4 kg
[~2017-03-15 10:24] MED LIST changes: +FUROSEMIDE10 MG/1 M1 IV; +HEPARIN-1/25000 UNI1 IV
--- NOTE | 2017-03-15 10:51 | ED GENERAL ADULT ---
History of Present Illness General Chief Complaint: Dyspnea (COPD, CHF, Other) Stated Complaint: SOB Source: patient Exam Limitations: no limitations Vital Signs & Intake/Output Vital Signs & Intake/Output Vital Signs Date Time Temp Pulse Resp B/P B/P Pulse O2 O2 Flow FiO2 Mean Ox Delivery Rate 03/15 1706 97.6 82 20 127/91 100 Room Air / 1352 98.1 75 20 123/80 100 Room Air / 1239 97.2 80 20 111/77 97 Room Air 03/15 1116 98 Room Air 03/15 1028 96.8 82 20 125/86 98 Room Air Allergies Coded Allergies: Sulfa (Sulfonamide Antibiotics) (N/V 01/04/17) Reconcile Medications Amiodarone HCl 200 MG TABLET 1 TAB PO DAILY HEART (Reported) Aspirin (Aspirin*) 81 MG TAB.CHEW 1 TAB PO DAILY HEART HEALTH (Reported) Atorvastatin Calcium 10 MG TABLET 1 TAB PO QPM CHOLESTEROL (Reported) Bupropion HCl (Bupropion XL) 300 MG TAB.ER.24H 1 TAB PO QAM ANXIETY/DEPRESSION (Reported) Dipyridamole W/ Aspirin (Aggrenox 25 MG-200 MG Capsule) 25 MG-200 MG CPMP.12HR 1 CAP PO BID BLOOD THINNER (Reported) Escitalopram Oxalate (Lexapro) 20 MG TABLET 2 TAB PO DAILY MENTAL HEALTH ( Reported) Furosemide 20 MG TABLET 1 TAB PO Q48 WATER RETENTION (Reported) Furosemide 40 MG TABLET 1 TAB PO Q48 WATER PILL (Reported) Hydroxychloroquine Sulfate 200 MG TABLET 1 TAB PO BID RA (Reported) Lorazepam 0.5 MG TABLET 1 TAB PO QPM ANXIETY (Reported) Metoprolol Succinate 25 MG TAB 1 TAB PO QAM HEART (Reported) Prednisone 5 MG TABLET 1 TAB PO DAILY RA (Reported) Pregabalin (Lyrica) 75 MG CAPSULE 1 CAP PO BID FIBROMYALGIA (Reported) Warfarin Sodium (Coumadin) 5 MG TABLET 1 TAB PO Wednesday BLOOD THINNER (Reported) Warfarin Sodium (Coumadin) 2.5 MG TABLET 1 TAB PO SuTuThSa BLOOD THINNER ( Reported) Triage Note: PT [facility] PT COMES FOR INCREASED SOB SENT IN BY DR. GERBER. Triage Nurses Notes Reviewed? yes HPI: 51-year-old female with a history of heart failure with preserved EF, aortic and mitral valve insufficiency, status post TAVR 1 month ago, A. fib (on Coumadin), prior PA, hypertension, CVA sent in by for shortness of breath with exertion. Patient wears baseline home O2 of 2.5 L for sleep only, but reports requiring the use of oxygen during the day for ambulation over the past 2-3 days. Denies fevers, chest pain, chest tightness, nausea, vomiting, lightheadedness, dizziness, palpitations, leg swelling. Denies cough or sputum production. [facility] noted at the [facility] to be hypoxic to the high 80s with ambulation. Of note patient was intubated for 9 days secondary to CHF exacerbation approximately 5 months ago and was subsequently told she had developed interstitial lung disease at that time. (PRECIOUS WEBBER PA-C) Past History Travel History Traveled to [place] past 21 day No Medical History Any Pertinent Medical History? 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 No (PRECIOUS WEBBER PA-C) Review of Systems Review of Systems Constitutional: Denies: chills, diaphoresis, fever, malaise, weakness. Respiratory: Reports: short of breath. Denies: cough, hemoptysis, sputum production, wheezing. Cardiovascular: Denies: chest pain, palpitations, peripheral edema, syncope. GI: Reports: no symptoms. Genitourinary: Reports: no symptoms. Musculoskeletal: Reports: no symptoms. Skin: Reports: no symptoms. Neurological/Psychological: Reports: no symptoms. (PRECIOUS WEBBER PA-C) Physical Exam Physical Exam General Appearance: well developed/nourished, no apparent distress, alert, comfortable Head: atraumatic Respiratory: normal breath sounds, lungs clear, no wheezing, rales, rhonchi on lung exam.patient is comfortable with O2 sat 99% and respiratory rate 14 on room air while at rest, however with ambulation patient becomes hypoxic to the high 80s despite nasal cannula. Cardiovascular: regular rate/rhythm, normal peripheral pulses Gastrointestinal: soft, non-tender Extremities: no edema Core Measures ACS in differential dx? Yes CVA/TIA Diagnosis: No Severe Sepsis Present: No Septic Shock Present: No (LAWANDA ODONNELL,PRECIOUS) Progress Differential Diagnoses I considered the following diagnoses in my evaluation of the patient: [PA versus CHF exacerbation versus pneumonia versus PE versus pleural effusion versus pleurisy versus ILD flare.] Plan of Care: Orders Procedure Date/time Status Add-on Test (ER Only) 03/15 1609 Active TROPONIN LEVEL 03/15 1600 Complete Add-on Test (ER Only) 03/15 1538 Active PROTHROMBIN TIME 03/15 1538 Complete D-DIMER 03/15 1538 Complete TROPONIN LEVEL 03/15 1140 Complete COMPREHENSIVE METABOLIC PANEL 03/15 1133 Complete CBC WITHOUT DIFFERENTIAL 03/15 1133 Complete B-TYPE NATRIURETIC PEP (BNP) 03/15 1133 Complete EKG 03/15 1133 Active Laboratory Tests 03/15/17 1605: Troponin I 0.01 03/15/17 1538: Troponin I Cancelled 03/15/17 1140: Anion Gap 9, Estimated GFR 47 L, BUN/Creatinine Ratio 27.5 H, Glucose 75, Calcium 9.2, Total Bilirubin 0.4, AST 20, ALT 26, Alkaline Phosphatase 71, Troponin I 0.02, Vbg-H-Suunxbolmln Pept 811 H, Total Protein 6.4, Albumin 3.5, Globulin 2.9, Albumin/Globulin Ratio 1.2, PT 36.1 H, INR 3.48 H, D-Dimer High Sensitivty < 200, CBC w Diff NO MAN DIFF REQ, RBC 3.49 L, MCV 85.1, MCH 27.2, RDW 17.9 H, MPV 7.1 L, Gran % 67.3, Lymphocytes % 23.6, Monocytes % 8.6, Eosinophils % 0, Basophils % 0.5, Absolute Granulocytes 4.5, Absolute Lymphocytes 1.6, Absolute Monocytes 0.6, Absolute Eosinophils 0, Absolute Basophils 0, PUBS MCHC 32.0 L Labs remarkable for mild acute kidney injury for which patient was given 500 mL bolus of normal saline. Labs otherwise unremarkable including negative troponin congestion or pulmonary edema. EKG unchanged from prior. Attempted to ambulate patient, patient becomes short of breath with ambulation and desats to high 80s despite 2 L of nasal cannula. Patient advised inpatient stay given her new increase in oxygen requirement and hypoxia with ambulation despite supplemental oxygen. Patient declining admission at this time, counseled extensively on the risks of leaving AGAINST MEDICAL ADVICE including but not limited to heart attack, respiratory distress, . She expresses understanding these risks and still wishes to leave AGAINST MEDICAL ADVICE. (PRECIOUS WEBBER PA-C) Initial ED EKG: normal axis, rhythm (sinus), rate (74), RBBB (incomplete, unchanged ) (PRECIOUS WEBBER PA-C) Departure Departure Disposition: LEFT AGAINST MEDICAL ADVICE Condition: Stable Clinical Impression Primary Impression: Shortness of breath Referrals: FREDIS CHU APRN (PCP/Family) Additional Instructions: Follow-up with Dr. Gerber as soon as possible. Begin using your supplemental oxygen during the day to prevent episodes of decreased oxygen saturation. Return to the ED immediately for any new or worsening symptoms. Departure Forms: Customer Survey General Discharge Information (PRECIOUS WEBBER PA-C) PA/DOCUMENT REVIEW SPECIALIST Co-Sign Statement Statement: ED Attending supervision documentation- [X] I saw and evaluated the patient. I have also reviewed all the pertinent lab results and diagnostic results. I agree with the findings and the plan of care as documented in the PA's/DOCUMENT REVIEW SPECIALIST's documentation. [] I have reviewed the ED Record and agree with the PA's/DOCUMENT REVIEW SPECIALIST's documentation. [] Additions or exceptions (if any) to the PAs/DOCUMENT REVIEW SPECIALIST's note and plan are summarized below: [] (SYBIL VILLAFANA DO) Critical Care Note Critical Care Note Critical Care Time: non-applicable (PRECIOUS WEBBER PA-C)
[2017-03-15] MEDS ORDERED: ASPIRIN81 M4 PO (10:53)
[2017-03-15] MEDS ORDERED: COUMADIN2.5 M1 PO (10:55)
[2017-03-15] MEDS ORDERED: COUMADIN5 M2 PO (10:55)
[2017-03-15] MEDS ORDERED: FUROSEMIDE20 M1 PO (10:58)
[2017-03-15] MEDS ORDERED: FUROSEMIDE40 M1 PO (10:58)
[2017-03-15 11:48] LABS: ABSOLUTE BASOPHIL COUNT 0 /CUMM (0.0-0.2); ABSOLUTE EOSINOPHIL COUNT 0 /CUMM (0.0-0.7); ABSOLUTE GRANULOCYTE CT 4.5 /CUMM (1.4-6.5); ABSOLUTE LYMPH COUNT 1.6 /CUMM (1.2-3.4); ABSOLUTE MONOCYTE COUNT 0.6 /CUMM (0.10-0.60); BASOPHIL % 0.5 % (0.0-2.0); EOSINOPHIL % 0 % (0-5); GRANULOCYTE % 67.3 % (42.2-75.2); HEMATOCRIT 29.7 % (37-47); MEAN CORPUSCULAR HGB 27.2 PG (27.0-31.0); MEAN CORPUSCULAR VOLUME 85.1 FL (81.0-99.0); MEAN PLATELET VOLUME 7.1 FL (7.4-10.4); PLATELET COUNT 334 /CUMM (130-400); RBC DISTRIBUTION WIDTH 17.9 % (11.5-14.5); RED BLOOD CELL CT 3.49 /CUMM (4.20-5.40); WHITE BLOOD CELL COUNT 6.7 /CUMM (4.8-10.8)
--- NOTE | 2017-03-15 12:40 | RADIOLOGY REPORT ---
EXAMINATION: XR CHEST CLINICAL INFORMATION: Shortness of breath, evaluate for pulmonary edema. COMPARISON: 2-view chest x-ray 11/23/2016. TECHNIQUE: 2 views of the chest were obtained. FINDINGS: There is a new stent device which appears to be in the descending aorta and/or aortic valve region. The cardiomediastinal silhouette is otherwise unchanged with normal heart size. The lungs and pleural spaces appear clear without evidence of congestion, consolidation, or significant appearing effusion or atelectasis. There is no evidence of pneumothorax or pulmonary edema. Included osseous structures appear largely unremarkable. IMPRESSION: 1. No acute intrathoracic process. 2. There is a new metallic stent as noted.
[2017-03-15 16:20] LABS: PT 36.1 SEC (9.4-12.5)
[2017-03-15 17:06] VITALS: BP 127/91
== END 2017-03-15 17:25 | disposition left against medical advice (07) ==
LOC: ERH 10:24
PROVIDERS: Physician Assistant
DX: R06.02 Shortness of breath (principal)
CPT/HCPCS: 93005; 93010; J7040

== ENCOUNTER 2018-02-17 06:55 | Inpatient (IN) | payer OTHER ==
[~2018-02-17] VITALS: Ht 165.1 cm; Wt 103.0 kg
[~2018-02-17 06:55] MED LIST changes: +ASPIRIN81 M4 PO; +ATIVAN1 M1 PO; +COUMADIN5 M2 PO; +FUROSEMIDE40 M1 PO; +LASIX40 M1 PO; -LORAZEPAM0.5 M1 PO; +LYRICA150 M1 PO; -LYRICA75 M1 PO
--- NOTE | 2018-02-17 07:34 | ED DYSPNEA/ASTHMA COMPLAINT ---
History of Present Illness General Chief Complaint: Dyspnea (COPD, CHF, Other) Stated Complaint: SOB Source: patient Exam Limitations: no limitations Vital Signs & Intake/Output Vital Signs & Intake/Output Vital Signs Date Time Temp Pulse Resp B/P B/P Pulse O2 O2 Flow FiO2 Mean Ox Delivery Rate 02/17 0856 103 22 132/68 93 Room Air 02/17 0827 96 18 130/73 96 Nasal 4.0L Cannula 02/17 0754 95 Nasal 4.0L Cannula 02/17 0730 97 18 115/56 96 Nasal 4.0L Cannula 02/17 0701 99.4 106 18 154/76 86 Nasal 3.0L Cannula Allergies Coded Allergies: Sulfa (Sulfonamide Antibiotics) (N/V 01/04/17) Reconcile Medications Albuterol Sulfate (Proair Hfa) 90 MCG HFA.AER.AD 2 PUF INH Q4-6 PRN PRN SHORTNESS OF BREATH (Reported) Amiodarone (Cordarone) 200 MG TABLET 1 TAB PO DAILY HEART (Reported) Aspirin (Aspirin*) 81 MG TAB.CHEW 1 TAB PO DAILY HEART HEALTH (Reported) Atorvastatin Calcium 10 MG TABLET 1 TAB PO QPM CHOLESTEROL (Reported) Bupropion HCl (Bupropion XL) 300 MG TAB.ER.24H 1 TAB PO QAM ANXIETY/DEPRESSION (Reported) Cholecalciferol (Vitamin D3) (Vitamin D3) 2,000 UNIT TABLET 3 TAB PO DAILY VITAMIN SUPPORT (Reported) Cyanocobalamin (Vitamin B-12) 1,000 MCG TABLET 1 TAB PO DAILY VITAMIN SUPPORT (Reported) Cyclobenzaprine HCl 10 MG TABLET 1 TAB PO BID PRN MUSCLE SPASMS (Reported) Dipyridamole W/ Aspirin (Aggrenox 25 MG-200 MG Capsule) 25 MG-200 MG CPMP.12HR 1 CAP PO BID BLOOD THINNER (Reported) Escitalopram Oxalate (Lexapro) 20 MG TABLET 2 TAB PO QPM MENTAL HEALTH ( Reported) Furosemide (Lasix) 40 MG TABLET 1 TAB PO DAILY WATER RETENTION (Reported) Hydroxychloroquine Sulfate 200 MG TABLET 1 TAB PO BID RA (Reported) Ibuprofen/Famotidine (Duexis 800-26.6 MG Tablet) 800 MG-26.6 MG TABLET 1 TAB PO TID PRN RA (Reported) LORazepam (Ativan) 1 MG TAB 1 TAB PO BID ANXIETY (Reported) Lysine (L-Lysine) 500 MG TABLET 1 TAB PO BID SUPPLEMENT (Reported) Metoprolol Succinate 25 MG TAB 1 TAB PO QAM HEART (Reported) Prednisone 5 MG TABLET 1 TAB PO DAILY RA (Reported) Pregabalin (Lyrica) 150 MG CAPSULE 1 CAP PO BID PAIN (Reported) Warfarin Sodium (Coumadin) 5 MG TABLET 1 TAB PO Wednesday BLOOD THINNER (Reported) Warfarin Sodium (Coumadin) 2.5 MG TABLET 1 TAB PO SuTuThSa BLOOD THINNER ( Reported) Triage Note: 52 YO FEMALE TO TRIAGE C/O INCREASE IN SOB THIS AM. STATES HX OF LUNG DISEASE. PT WEARS 3L AT BASELINE, SATS 86% ON 3L. PT STATES SHE DID A NEB THIS AM WITHOUT RELIEF. C/O HEAVINESS IN LUNGS. C/O PRODUCTIVE COUGH, TEMP 99.4 IN TRIAGE Triage Nurses Notes Reviewed? yes Onset: Abrupt Duration: hour(s): Severity: severe Activities at Onset: sleep Prior Episodes/Possible Cause: occasional episodes HPI: Patient presents for evaluation of shortness of breath awakening her from sleep this morning. Patient tried a nebulizer at home (history of COPD) without improvement. She denies chest pain and fever has had cold symptoms over the past few days. She also has had a nonproductive cough. She denies leg swelling. She states she typically does not sleep lying flat because it worsens or breathing. She admits to a past history of congestive heart failure, pneumonia and COPD. She has also had an aortic valve repair roughly 1 year ago. She was evaluated by her surgeon last week and was told everything seemed alright. Past History Travel History Traveled to [place] past 21 day No Medical History Any Pertinent Medical History? 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 No Review of Systems Review of Systems Constitutional: Reports: no symptoms. EENTM: Reports: no symptoms. Respiratory: Reports: see HPI. Cardiovascular: Reports: no symptoms. GI: Reports: no symptoms. Genitourinary: Reports: no symptoms. Musculoskeletal: Reports: no symptoms. Skin: Reports: no symptoms. Neurological/Psychological: Reports: no symptoms. Hematologic/Endocrine: Reports: no symptoms. Immunologic/Allergic: Reports: no symptoms. All Other Systems: Reviewed and Negative Physical Exam Physical Exam Respiratory: SEE BELOW Comments: Gen.: Well-nourished, well-developed, no acute respiratory distress. Head: Normocephalic, atraumatic. Eyes: Normal inspection bilaterally Ears: Normal inspection bilaterally Nose: Normal inspection Throat/mouth : Moist mucosa Neck: Supple, full range of motion, no goiter Heart: Regular rate and rhythm, no murmurs rubs or gallops Lungs: Crackles posteriorly, bilaterally, two thirds of the way up Chest: Nontender Back: Normal range of motion Abdomen: Soft, nontender, nondistended, normal bowel sounds Extremities: Normal range of motion grossly, equal radial pulses, no cyanosis clubbing or edema, calves nontender Neurologic: Cranial nerves grossly intact, speech is clear Skin: warm and dry Psychiatric: Calm, cooperative, no apparent delusions or hallucinations Core Measures ACS in differential dx? No CVA/TIA Diagnosis No Sepsis Present: No Sepsis Focused Exam Completed? No Progress Differential Diagnosis: asthma, AMI, bronchitis, CHF, COPD, pneumonia, unstable angina Plan of Care: Orders Procedure Date/time Status Heart Healthy Diet 02/17 L Active Misc Message 02/17 949 Active ED Holding Orders 02/17 949 Active Admit to inpatient 02/17 949 Active Vital Signs 02/17 949 Active Code Status 02/17 949 Active Add-on Test (ER Only) 02/17 922 Active PROTHROMBIN TIME 02/17 806 Active Telemetry/Shingle Weaver 02/17 733 Active TROPONIN LEVEL 02/17 733 Complete MAGNESIUM 02/17 733 Complete CBC WITHOUT DIFFERENTIAL 02/17 733 Complete B-TYPE NATRIURETIC PEP (BNP) 02/17 733 Complete BASIC METABOLIC PANEL 02/17 733 Complete EKG 02/17 733 Active Laboratory Tests 02/17/18 0806: Anion Gap 11, Estimated GFR 52 L, BUN/Creatinine Ratio 17.3, Glucose 104 H, Calcium 9.0, Magnesium 1.7, Troponin I 0.02, Hkt-S-Sdrzbcjculw Pept 1230 H, PT Pending, INR Pending, CBC w Diff NO MAN DIFF REQ, RBC 3.35 L, MCV 85.2, MCH 27.3, MCHC 32.0 L, RDW 17.8 H, MPV 7.4, Gran % 84.9 H, Lymphocytes % 7.7 L, Monocytes % 5.5, Eosinophils % 0.5, Basophils % 1.4, Absolute Granulocytes 8.8 H, Absolute Lymphocytes 0.8 L, Absolute Monocytes 0.6, Absolute Eosinophils 0, Absolute Basophils 0.1 Diagnostic Imaging: Viewed by Me: Radiology Read. Discussed w/RAD: Radiology Read. CXR Impression: PATIENT: DENNISE VELASQUEZ PRESENT AGE: 52 PATIENT ACCOUNT NO: [id number] : 64 LOCATION: [facility] ORDERING PHYSICIAN: Mateo Bui MD SERVICE DATE: 02/17/18 EXAM TYPE: RAD - XRY-PORTABLE CHEST XRAY EXAMINATION: XR PORTABLE CHEST CLINICAL INFORMATION: Dyspnea. Congestive heart failure. COMPARISON: Chest radiograph dated 08/02/2017. TECHNIQUE: Portable frontal view of the chest was obtained. FINDINGS: The cardiac silhouette is minimally enlarged. There is mild uncoiling of the thoracic aorta. There is bilateral interstitial and alveolar pulmonary edema. No pneumonia is evident. No large pleural effusion. No pneumothorax. There is an aortic stent graft. IMPRESSION: Pulmonary edema. Cardiac silhouette is minimally enlarged. DICTATED BY: Philippe Be MD DATE/TIME DICTATED:02/17/18817 OUTREACH TEAM MEMBER:DESTINY DATE/TIME TRANSCRIBED:02/17/18817 CONFIDENTIAL, DO NOT COPY WITHOUT APPROPRIATE AUTHORIZATION. <Electronically signed in Other Vendor System> SIGNED BY: Philippe Be MD 02/17/18824 Initial ED EKG: NSR, rate (99), RBBB Prior EKG: unchanged Rhythm Strip: normal sinus rhythm Comments: 02/17/2018 9:10:37 AM I have updated Dennise on her test results. She is comfortable at present without complaint. 02/17/2018 9:25:33 AM according to the lab, the patient's blood is "very fibrinous" and they are having difficulty with testing it. It is unclear when the test results will be available. 02/17/2018 9:43:36 AM patient's case discussed with Dr. Lira who agrees with current assessment and plan. Departure Departure Disposition: STILL A PATIENT Condition: Stable Clinical Impression Primary Impression: Pulmonary edema Qualifiers: Chronicity: acute Qualified Code: J81.0 - Acute pulmonary edema Referrals: Cassi Barajas APRN (PCP/Family) Departure Forms: Customer Survey General Discharge Information Admission Note Spoke With: Berta Hightower MD Documentation of Exam: Documentation of any treatments & extenuating circumstances including Concerns Regarding Discharge (functional status, medication knowledge or non-compliance, living conditions, etc.) that warrant an admission rather than observation: Patient presents with worsening dyspnea and chest x-ray reveals pulmonary edema.This places the patient at high risk of respiratory failure and . I do not feel she is capable of outpatient management under the circumstances given her increased need for oxygen supplementation and the functional compromise associated with her pulmonary edema. I do not feel she would be capable of complying with outpatient management given her dyspnea and this could in fact exacerbate her shortness of breath potentially provoke an acute coronary syndrome or acute respiratory failure. I feel she now requires hospitalization for oxygen supplementation, blood pressure control, diuresis and cardiology consultation. Intake and output and daily weights should be monitored to assure negative fluid balance. Electrolytes and renal functions should be monitored for changes given her diuresis. Echocardiogram should be considered to assess left ventricular function. Given this patient's medical comorbidities I feel her treatment and recovery will likely be prolonged and complicated, requiring a multiple day hospitalization. Critical Care Note Critical Care Note Critical Care Time: 30-74 min
[2018-02-17 08:14] LABS: ABSOLUTE BASOPHIL COUNT 0.1 /CUMM (0.0-0.2); ABSOLUTE EOSINOPHIL COUNT 0 /CUMM (0.0-0.7); ABSOLUTE GRANULOCYTE CT 8.8 /CUMM (1.4-6.5); ABSOLUTE LYMPH COUNT 0.8 /CUMM (1.2-3.4); ABSOLUTE MONOCYTE COUNT 0.6 /CUMM (0.10-0.60); BASOPHIL % 1.4 % (0.0-2.0); EOSINOPHIL % 0.5 % (0-5); HEMATOCRIT 28.6 % (37-47); MEAN CORPUSCULAR HGB 27.3 PG (27.0-31.0); MEAN CORPUSCULAR VOLUME 85.2 FL (81.0-99.0); MEAN PLATELET VOLUME 7.4 FL (7.4-10.4); PLATELET COUNT 294 /CUMM (130-400); RBC DISTRIBUTION WIDTH 17.8 % (11.5-14.5); RED BLOOD CELL CT 3.35 /CUMM (4.20-5.40); WHITE BLOOD CELL COUNT 10.4 /CUMM (4.8-10.8)
--- NOTE | 2018-02-17 08:25 | RADIOLOGY REPORT ---
EXAMINATION: XR PORTABLE CHEST CLINICAL INFORMATION: Dyspnea. Congestive heart failure. COMPARISON: Chest radiograph dated 08/02/2017. TECHNIQUE: Portable frontal view of the chest was obtained. FINDINGS: The cardiac silhouette is minimally enlarged. There is mild uncoiling of the thoracic aorta. There is bilateral interstitial and alveolar pulmonary edema. No pneumonia is evident. No large pleural effusion. No pneumothorax. There is an aortic stent graft. IMPRESSION: Pulmonary edema. Cardiac silhouette is minimally enlarged.
[2018-02-17 08:32] LABS: GRANULOCYTE % 84.9 % (42.2-75.2)
[2018-02-17] MEDS ORDERED: DUEXIS 800-26.1 EACH PO (09:09)
[2018-02-17] MEDS ORDERED: CYCLOBENZAPRINE10 M1 PO (09:10)
[2018-02-17] MEDS ORDERED: PROAIR HFA8.5 GM INH (09:10)
[2018-02-17] MEDS ORDERED: L-LYSINE500 M2 PO (09:11)
[2018-02-17] MEDS ORDERED: VITAMIN B-121000 MC3 PO (09:12)
[2018-02-17] MEDS ORDERED: VITAMIN D32000 UNI1 PO (09:12)
[2018-02-17 09:50] LABS: PT 89.2 SEC (9.4-12.5)
--- NOTE | 2018-02-17 10:17 | History & Physical ---
Vince CROOKS,Amolmarco 02/17/18 1017: General Information and HPI MD Statement: I have seen and personally examined JAISON VELASQUEZ and documented this H&P. The patient is a 52 year old F who presented with a patient stated chief complaint of [SOB]. 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 Patient offers a very succinct history. She says she was at her baseline yesterday and she was using 2.5 L O2 intermittently as is her norm. She woke up this morning from sleep around 5 AM due to shortness of breath. She used her pulse oximeter and found that she was saturating 78% on RA, normally she is in mid-80s on RA. She increased her oxygen to 3 L and several hours later she was still saturating only 84-85%. She asked her to auscultate her lungs and when he described crackles she became concerned and came to the ED. Notably, she states her listened to ler lungs yesterday and they were "fine." About two wks ago she states she saw Dr. Levy, the doctor at [facility] who did her TAVR, and had echocardiographic evaluation which was supposedly good. Also about 2 weeks ago she had an ear infection and was given Augmentin and prednisone taper. She has since finished that round of medication and return to her baseline for several days. She is an ex-smoker, quit 10 years ago. Prior to that she had less than a half pack per day habit for about 10 years. No pertinent family history. Surgical history pertinent for TAVR and multiple lithotripsies. She denies any headache, nausea, vomiting, diarrhea chest pain, palpitations, productive cough, fever, URI symptoms, sick contacts, recent travel or any deviation from her norm. She does endorse shortness of breath, and fatigue. At baseline she is orthopneic with about a 3 pillow requirement. Allergies/Medications Allergies: Coded Allergies: Sulfa (Sulfonamide Antibiotics) (N/V 01/04/17) Home Med list Albuterol Sulfate (Proair Hfa) 90 MCG HFA.AER.AD 2 PUF INH Q4-6 PRN PRN SHORTNESS OF BREATH (Reported) Aspirin (Aspirin*) 81 MG TAB.CHEW 1 TAB PO DAILY HEART HEALTH (Reported) Atorvastatin Calcium 10 MG TABLET 1 TAB PO QPM CHOLESTEROL (Reported) Bupropion HCl (Bupropion XL) 300 MG TAB.ER.24H 1 TAB PO QAM ANXIETY/DEPRESSION (Reported) Cholecalciferol (Vitamin D3) (Vitamin D3) 2,000 UNIT TABLET 3 TAB PO DAILY VITAMIN SUPPORT (Reported) Cyanocobalamin (Vitamin B-12) 1,000 MCG TABLET 1 TAB PO DAILY VITAMIN SUPPORT (Reported) Cyclobenzaprine HCl 10 MG TABLET 1 TAB PO BID PRN MUSCLE SPASMS (Reported) Dipyridamole W/ Aspirin (Aggrenox 25 MG-200 MG Capsule) 25 MG-200 MG CPMP.12HR 1 CAP PO BID BLOOD THINNER (Reported) Escitalopram Oxalate (Lexapro) 20 MG TABLET 2 TAB PO QPM MENTAL HEALTH ( Reported) Furosemide (Lasix) 40 MG TABLET 1 TAB PO DAILY WATER RETENTION (Reported) Hydroxychloroquine Sulfate 200 MG TABLET 1 TAB PO BID RA (Reported) Ibuprofen/Famotidine (Duexis 800-26.6 MG Tablet) 800 MG-26.6 MG TABLET 1 TAB PO TID PRN RA (Reported) LORazepam (Ativan) 1 MG TAB 1 TAB PO BID ANXIETY (Reported) Lysine (L-Lysine) 500 MG TABLET 1 TAB PO BID SUPPLEMENT (Reported) Metoprolol Succinate 25 MG TAB 1 TAB PO QAM HEART (Reported) Prednisone 5 MG TABLET 1 TAB PO DAILY RA (Reported) Pregabalin (Lyrica) 150 MG CAPSULE 1 CAP PO BID PAIN (Reported) Warfarin Sodium (Coumadin) 5 MG TABLET 1 TAB PO Wednesday BLOOD THINNER (Reported) Warfarin Sodium (Coumadin) 2.5 MG TABLET 1 TAB PO SuTuThSa BLOOD THINNER ( Reported) Past History Travel History Traveled to [place] past 21 day No Medical History Neurological: CVA Cardiovascular: AFIB, CHF, hypertension, myocardial infarction, HYPERLIPIDEMIA RHEAMATIC HEART DISEASE AORTIC STENOSIS Respiratory: MULTILOBAR PNEUMONIA W/ INTUBATION 3L BASELINE Renal: nephrolithiasis Musculoskeletal: fibromyalgia, rheumatoid arthritis Psychiatric: anxiety Endocrine: NONE Blood Disorders: NONE Cancer(s): NONE 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 spouse Services at Home: None Primary Language: Nepalese Functional Ability ADLs Independent: dressing, eating, toileting, bathing. Ambulation: independent IADLs Independent: shopping, housework, finances, food prep, telephone, transportation , medication admin. Review of Systems Review of Systems Constitutional: Reports: see HPI. Exam & Diagnostic Data Last 24 Hrs of Vital Signs/I&O Vital Signs Date Time Temp Pulse Resp B/P B/P Pulse O2 O2 Flow FiO2 Mean Ox Delivery Rate 02/17 1208 98.8 96 18 124/60 Nasal 4.0L Cannula 02/17 1147 97 Nasal 4.0L Cannula 02/17 1147 94 Nasal 4.0L Cannula 02/17 1023 99.3 96 18 108/56 98 Nasal 4.0L Cannula 02/17 0856 103 22 132/68 93 Nasal 4.0L Cannula 02/17 0827 96 18 130/73 96 Nasal 4.0L Cannula 02/17 0754 95 Nasal 4.0L Cannula 02/17 0730 97 18 115/56 96 Nasal 4.0L Cannula 02/17 0701 99.4 106 18 154/76 86 Nasal 3.0L Cannula Intake & Output 02/17 1600 02/17 0800 05 0000 Intake Total Output Total 500 300 Balance -500 -300 Output, Urine 500 300 Patient 99.79 kg 99.79 kg Weight Weight Reported by Patient Measurement Method Physical Exam General Appearance Alert, Oriented X3, Cooperative, No Acute Distress Skin patient has some bruising on her lower extremities HEENT Atraumatic, PERRLA, EOMI, Mucous Membr. moist/pink Neck Supple, No JVD Cardiovascular Regular Rate, Normal S1, Normal S2, ppatient has 2/6 systolic murmur. It was difficult to hear cardiac sounds with the crackles from her lung Lungs patient has diffuse bilateral crackles Abdomen Normal Bowel Sounds, Soft, No Tenderness Extremities No Edema Last 24 Hrs of Labs/Michael: Laboratory Tests 02/17/18 0806: Anion Gap 11, Estimated GFR 52 L, BUN/Creatinine Ratio 17.3, Glucose 104 H, Calcium 9.0, Magnesium 1.7, Troponin I 0.02, Csx-R-Zfyqtjuaytw Pept 1230 H, PT 89.2 *H, INR 8.01 *H, CBC w Diff NO MAN DIFF REQ, RBC 3.35 L, MCV 85.2, MCH 27.3, MCHC 32.0 L, RDW 17.8 H, MPV 7.4, Gran % 84.9 H, Lymphocytes % 7.7 L, Monocytes % 5.5, Eosinophils % 0.5, Basophils % 1.4, Absolute Granulocytes 8.8 H, Absolute Lymphocytes 0.8 L, Absolute Monocytes 0.6, Absolute Eosinophils 0, Absolute Basophils 0.1 Assessment/Plan Assessment: This is a 51-year-old lady with a PMH of heart failure with preserved ejection fraction, COPD on 3 L O2, ASA on CPAP, fibromyalgia, 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 in 2017, with hx of intubation for hypoxic respiratory failure, who comes in for chief complaint of shortness of breath. In ED she was found to be tachycardic and hypoxic under 86% and was increased to 4 L O2. Her BNP is 1230, which is not as high as previous values of 5000. Chest x-ray shows extensive pulmonary edema. This patient has a known history of bicuspid mitral valve with superimposed rheumatic heart disease. Given the BNP and x-ray with significant edema, possible etiology for this patient's presentation is valvular heart failure, though other etiologies such as CAD with new systolic HF and infection cannot be ruled out. Problem list: 1. Pulmonary edema 2. Known moderate to severe mitral valve stenosis leading to heart failure 3. Paroxysmal atrial fibrillation on Coumadin 4. Supratherapeutic INR 5. Hypertension 6. Anemia 7. Elevated right ventricular systolic pressure of 55% and left atrial dilatation 8. Stage I diastolic dysfunction PLAN: Acute hypoxic respiratory failure: Xry with pulm and alveolar edema. BNP 1230. She has been as low as 811 in March 2017 but in Dec 2016 she was up to 5630. Pt was afebrile with WBC 10.4. This presentation could be secondary to her mod- severe MR. * TRC * O2 as necessary * Repeat Echo * Sputum culture * Holding off abx * Would consider pro-juan antonio in this patient if she doesnt improve after diuresis * Blood culture * I/O * Got lasix IV 60 in ED--> plan is to continue IV lasix 40 BID * Will consider VBG/ABG if she worsens * Echo * Strep swab * Legionella swab * Holding her metoprolol in setting of heart failure. Will restart tomorrow * Appreciate cardio consult Afib with elevated INR: INR today 8.01. * Hold Coumadin today * Follow up tomorrow Heart failure with preserved ejection fraction: BNP 1230. Last echo in Dec 2016; see above for results. * Repeat echo * Appreciate Cardio consult CVA: * Con't ASA * Con't Aggrenox Hypertension: BP 154/76 today. Given Lasix in ED. Will reassess and resume her home regimen as tolerated. Anxiety and depression: * Con't Bupropion * Con't Lexapro RA and fibromyalgia: * Con't Hydroxychloroquine * Con't Prednisone 5mg Anemia: She has had HB around 9.1 before. Con't monitor. * Monitor CBC fc hhd on sodium restriction coumadin ppx As Ranked By This Provider Problem List: 1. Shortness of breath 2. Pulmonary edema Qualifiers Chronicity: acute Qualified Code: J81.0 - Acute pulmonary edema Core Measures/Misc (06/27) Acute Coronary Syndrome ACS Diagnosis: No Congestive Heart Failure Congestive Heart Failure Diagnosis Yes Last Known EF % 55 Cerebrovascular Accident CVA/TIA Diagnosis: No VTE (View Protocol) VTE Risk Factors Acute Medical Illness No Mechanical VTE Prophylaxis d/t N/A MechProphylax Ordered No VTE Pharm Prophylaxis d/t NA PharmProphylax ordered Sepsis (View protocol) Sepsis Present: No EdmiGerald estrada 02/17/18 1324: Attending MD Review Statement Attending Statement Attending MD Statement: examined this patient, discuss w/resident/PA/ANIMAL SITTER, agreed w/resident/PA/ANIMAL SITTER, discussed with family, reviewed EMR data (avail), discussed with nursing, discussed with case mgmt, reviewed images, amended to note Attending Assessment/Plan: Patient admitted here for dyspnea multifactorial in origin with possible acute on chronic CHF exacerbation and recently had TAVR. Patient found to have supratheraputic INR 8.0. Patient started on lasix iv. Obtain cardiology cosnult, serial cardiac enzymes, monitor off abx, gi/dvt prophyalxis full code.
[2018-02-17 12:08] VITALS: BP 124/60
--- NOTE | 2018-02-17 15:44 | Cons- Cardiology ---
General Information and HPI Consulting Request Date of Consult: 02/17/18 Requested By: Gerald Simms MD Reason for Consult: Acute shortness of breath with evidence of pulmonary edema on chest x-ray Source of Information: patient, family, old records Exam Limitations: no limitations History of Present Illness: The patient is a 52-year-old, complicated, white female who is well-known to me from prior hospitalizations and office visits. 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 The patient, however, has been stable for the past year and was recently seen by the structural heart program at [facility] about 1 week ago and was stable at that time. The patient was also stable when I last saw her several months ago. The patient was doing well yesterday, she was using her chronic oxygen supplementation, on the morning of admission, the patient woke around 5 AM due to significant shortness of breath. Her pulse ox showed a saturation of 78% on room air. She increased her supplemental oxygen and after a few hours, continues to be short of breath and was brought to the emergency room. In the emergency room, her chest x-ray was noted to show interstitial edema bilaterally. The patient denies any other cardiac symptoms. She has been feeling fine with no other new issues. She has not had any dietary indiscretions as far as I can discern. She denies any other cardiac symptoms. Allergies/Medications Allergies: Coded Allergies: Sulfa (Sulfonamide Antibiotics) (N/V 01/04/17) Home Med List: Albuterol Sulfate (Proair Hfa) 90 MCG HFA.AER.AD 2 PUF INH Q4-6 PRN PRN SHORTNESS OF BREATH (Reported) Aspirin (Aspirin*) 81 MG TAB.CHEW 1 TAB PO DAILY HEART HEALTH (Reported) Atorvastatin Calcium 10 MG TABLET 1 TAB PO QPM CHOLESTEROL (Reported) Bupropion HCl (Bupropion XL) 300 MG TAB.ER.24H 1 TAB PO QAM ANXIETY/DEPRESSION (Reported) Cholecalciferol (Vitamin D3) (Vitamin D3) 2,000 UNIT TABLET 3 TAB PO DAILY VITAMIN SUPPORT (Reported) Cyanocobalamin (Vitamin B-12) 1,000 MCG TABLET 1 TAB PO DAILY VITAMIN SUPPORT (Reported) Cyclobenzaprine HCl 10 MG TABLET 1 TAB PO BID PRN MUSCLE SPASMS (Reported) Dipyridamole W/ Aspirin (Aggrenox 25 MG-200 MG Capsule) 25 MG-200 MG CPMP.12HR 1 CAP PO BID BLOOD THINNER (Reported) Escitalopram Oxalate (Lexapro) 20 MG TABLET 2 TAB PO QPM MENTAL HEALTH ( Reported) Furosemide (Lasix) 40 MG TABLET 1 TAB PO DAILY WATER RETENTION (Reported) Hydroxychloroquine Sulfate 200 MG TABLET 1 TAB PO BID RA (Reported) Ibuprofen/Famotidine (Duexis 800-26.6 MG Tablet) 800 MG-26.6 MG TABLET 1 TAB PO TID PRN RA (Reported) LORazepam (Ativan) 1 MG TAB 1 TAB PO BID ANXIETY (Reported) Lysine (L-Lysine) 500 MG TABLET 1 TAB PO BID SUPPLEMENT (Reported) Metoprolol Succinate 25 MG TAB 1 TAB PO QAM HEART (Reported) Prednisone 5 MG TABLET 1 TAB PO DAILY RA (Reported) Pregabalin (Lyrica) 150 MG CAPSULE 1 CAP PO BID PAIN (Reported) Warfarin Sodium (Coumadin) 5 MG TABLET 1 TAB PO Wednesday BLOOD THINNER (Reported) Warfarin Sodium (Coumadin) 2.5 MG TABLET [facility] [place] ( Reported) Current Medications: Current Medications Sig/Lico Start time Last Medication Dose Route Stop Time Status Admin Acetaminophen 650 MG Q6P PRN 02/17 1215 AC PO Acetaminophen 975 MG ONCE ONE 02/17 915 DC 02/17 PO 02/17 Acetaminophen 0 .STK-MED ONE 02/17 914 DC PO Aspirin 81 MG DAILY 02/18 900 AC PO Atorvastatin Calcium 10 MG QPM 02/17 2100 AC PO Bupropion HCl 300 MG QAM 02/18 900 AC PO Dipyridamole/Aspirin 1 CAP BID 02/17 2100 AC PO Escitalopram Oxalate 40 MG AT BEDTIME 02/17 2100 AC PO Furosemide 40 MG 7:30 AM, & 4:30 PM 02/18 0730 AC IV Furosemide 60 MG ONCE ONE 02/17 815 DC 02/17 IV PUSH 02/18 816 0824 Furosemide 0 .STK-MED ONE 02/17 815 DC IV Hydroxychloroquine 200 MG BID 02/17 2100 AC Sulfate PO Ibuprofen 600 MG Q6P PRN 02/17 1215 AC PO Lorazepam 1 MG BID 02/17 2100 AC PO Nitroglycerin 0 .STK-MED ONE 02/17 08 [facility] Nitroglycerin 0.5 GM ONCE ONE 02/17 0745 DC 02/17 TOP 02/17 0746 0803 Omeprazole 40 MG DAILY AC 02/17 1535 AC PO Oxycodone/ 1 TAB Q6P PRN 02/17 121 AC Acetaminophen PO Prednisone 5 MG DAILY 02/18 0900 AC PO Past History Travel History Traveled to [place] past 21 day No Medical History Blood Transfusion Hx: Yes Neurological: CVA EENT: EARACHE 2 WEEKS AGO Cardiovascular: AFIB, CHF, hypertension, HYPERLIPIDEMIA RHEAMATIC HEART DISEASE AORTIC STENOSIS TAVAR 01/2017 Respiratory: COPD, MULTILOBAR PNEUMONIA W/ INTUBATION 3L BASELINE INTERSTITIAL LUNG DX Renal: nephrolithiasis, STONES Musculoskeletal: fibromyalgia, rheumatoid arthritis Psychiatric: anxiety, depression Endocrine: NONE Blood Disorders: NONE Cancer(s): NONE MANAGER GLOBAL COMMUNICATIONS/Reproductive: NONE Surgical History Surgical History: LITHOTRIPSY THERMAL UTERINE ABLATION Family History Relations & Conditions If Any: MOTHER FH: CAD (coronary artery disease) FH: hypertension Psychosocial History Where Do You Live? Home Who Do You Live With? spouse Services at Home: None Primary Language: Indonesian Smoking Status: Former Smoker Functional Ability ADLs Independent: dressing, eating, toileting, bathing. Ambulation: independent IADLs Independent: shopping, housework, finances, food prep, telephone, transportation , medication admin. Exam & Diagnostic Data Vital Signs and I&O Vital Signs Date Time Temp Pulse Resp B/P B/P Pulse O2 O2 Flow FiO2 Mean Ox Delivery Rate 02/17 1208 98.8 96 18 124/60 Nasal 4.0L Cannula 02/17 1147 97 Nasal 4.0L Cannula 02/17 1147 94 Nasal 4.0L Cannula 02/17 1023 99.3 96 18 108/56 98 Nasal 4.0L Cannula 02/17 0856 103 22 132/68 93 Nasal 4.0L Cannula 02/17 0827 96 18 130/73 96 Nasal 4.0L Cannula 02/17 0754 95 Nasal 4.0L Cannula 02/17 0730 97 18 115/56 96 Nasal 4.0L Cannula 02/17 0701 99.4 106 18 154/76 86 Nasal 3.0L Cannula Intake & Output 02/17 0802/17 0000 02/16 1600 02/16 0802/16 0000 Intake Total 400 Output Total 800 300 Balance -400 -300 Intake, Oral 400 Output, Urine 800 300 Patient 220 lb 220 lb Weight Weight Reported by Patient Measurement Method Physical Exam: General Appearance: well developed/nourished, overweight white female, alert, awake, oriented Head: normal HEENT: Normal Neck: supple, JVP normal, carotid upstrokes normal bilaterally, no masses or thyromegaly Respiratory: chest non-tender, bilateral crackles Cardiovascular: regular rate/rhythm, normal S1, S2, 1-2/6 systolic murmur; 1/6 to 2/6 diastolic rumble of mitral stenosis Abdomen: normal bowel sounds, soft, non-tender Extremities: normal inspection, no edema Vascular: Pulses are 2+ and equal bilaterally Neurologic: Grossly normal/nonfocal Labs/Michael Results: Laboratory Tests 02/17 02/17 1435 0806 Chemistry Sodium (137 - 145 mmol/L) 142 Potassium (3.5 - 5.1 mmol/L) 3.6 Chloride (98 - 107 mmol/L) 100 Carbon Dioxide (22 - 30 mmol/L) 31 H Anion Gap (5 - 16) 11 BUN (7 - 17 mg/dL) 19 H Creatinine (0.5 - 1.0 mg/dL) 1.1 H Estimated GFR (>60 ml/min) 52 L BUN/Creatinine Ratio (7 - 25 %) 17.3 Glucose (65 - 99 mg/dL) 104 H Calcium (8.4 - 10.2 mg/dL) 9.0 Magnesium (1.6 - 2.3 mg/dL) 1.7 Troponin I (< 0.11 ng/ml) Pending 0.02 [id number] Pept (<125 pg/mL) 1230 H Coagulation PT (9.4 - 12.5 SEC) 89.2 *H INR (0.90 - 1.19) 8.01 *H Hematology CBC w Diff NO MAN DIFF REQ WBC (4.8 - 10.8 /CUMM) 10.4 RBC (4.20 - 5.40 /CUMM) 3.35 L Hgb (12.0 - 16.0 G/DL) 9.1 L Hct (37 - 47 %) 28.6 L MCV (81.0 - 99.0 FL) 85.2 MCH (27.0 - 31.0 PG) 27.3 MCHC (33.0 - 37.0 G/DL) 32.0 L RDW (11.5 - 14.5 %) 17.8 H Plt Count (130 - 400 /CUMM) 294 MPV (7.4 - 10.4 FL) 7.4 Gran % (42.2 - 75.2 %) 84.9 H Lymphocytes % (20.5 - 51.1 %) 7.7 L Monocytes % (1.7 - 9.3 %) 5.5 Eosinophils % (0 - 5 %) 0.5 Basophils % (0.0 - 2.0 %) 1.4 Absolute Granulocytes (1.4 - 6.5 /CUMM) 8.8 H Absolute Lymphocytes (1.2 - 3.4 /CUMM) 0.8 L Absolute Monocytes (0.10 - 0.60 /CUMM) 0.6 Absolute Eosinophils (0.0 - 0.7 /CUMM) 0 Absolute Basophils (0.0 - 0.2 /CUMM) 0.1 Diagnostic Data CXR Results FINDINGS: The cardiac silhouette is minimally enlarged. There is mild uncoiling of the thoracic aorta. There is bilateral interstitial and alveolar pulmonary edema. No pneumonia is evident. No large pleural effusion. No pneumothorax. There is an aortic stent graft. IMPRESSION: Pulmonary edema. Cardiac silhouette is minimally enlarged. Assessment/Plan Assessment/Plan Assessment: 1. Worsening shortness of breath of relatively acute onset with evidence of pulmonary edema on chest x-ray and examination-at the moment, the etiology of the patient's acute CHF is unclear. This may represent acute on chronic diastolic heart failure, worsening mitral valve disease, etc. 2. History of aortic stenosis, status post transcatheter valve replacement 3. 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 Paroxysmal atrial for ablation 5. History of hypertension 6. History of pulmonary disease 7. History of sleep apnea 8. Supratherapeutic INR 9. Normocytic anemia Recommendations: -1 [facility] admission -Diuresis with IV Lasix -Close monitoring of intakes, outputs, daily weights, and daily labs -Echocardiogram to reassess left ventricular function, mitral valve function, right ventricular systolic pressure, etc. -Warfarin on hold pending therapeutic INR of 2.5-3.0 -If the patient's status does not improve significantly over the next 24 hours with diuresis, consider pulmonary follow-up and input Consult Acknowledgment - Thank you for your consult request.
[2018-02-17 22:18] VITALS: BP 116/60
[2018-02-18 07:27] VITALS: BP 102/64
[2018-02-18 08:00] LABS: ABSOLUTE BASOPHIL COUNT 0 /CUMM (0.0-0.2); ABSOLUTE EOSINOPHIL COUNT 0 /CUMM (0.0-0.7); ABSOLUTE GRANULOCYTE CT 8.4 /CUMM (1.4-6.5); ABSOLUTE LYMPH COUNT 0.7 /CUMM (1.2-3.4); ABSOLUTE MONOCYTE COUNT 0.7 /CUMM (0.10-0.60); BASOPHIL % 0.2 % (0.0-2.0); EOSINOPHIL % 0.4 % (0-5); GRANULOCYTE % 85.6 % (42.2-75.2); MEAN CORPUSCULAR HGB 26.9 PG (27.0-31.0); MEAN CORPUSCULAR HGB CONC 32.2 G/DL (33.0-37.0); MEAN CORPUSCULAR VOLUME 83.5 FL (81.0-99.0); MEAN PLATELET VOLUME 7.6 FL (7.4-10.4); PLATELET COUNT 294 /CUMM (130-400); RBC DISTRIBUTION WIDTH 18.1 % (11.5-14.5); RED BLOOD CELL CT 3.24 /CUMM (4.20-5.40); WHITE BLOOD CELL COUNT 9.8 /CUMM (4.8-10.8)
[2018-02-18 08:32] LABS: PT 69.8 SEC (9.4-12.5)
--- NOTE | 2018-02-18 09:50 | PN- Housestaff ---
Vince CROOKS,Goran 02/18/18 0949: Subjective Follow-up For: shortness of breath Subjective: Saw pt at bedide this AM. Review of Systems Constitutional: Denies: chills, fever, weakness. Cardiovascular: Reports: no symptoms. Respiratory: Reports: short of breath. Gastrointestinal: Reports: no symptoms. Genitourinary: Reports: no symptoms. Musculoskeletal: Reports: no symptoms. Skin: Reports: no symptoms. Objective Last 24 Hrs of Vital Signs/I&O Vital Signs Date Time Temp Pulse Resp B/P B/P Pulse O2 O2 Flow FiO2 Mean Ox Delivery Rate 02/18 09 Nasal 4.0L Cannula 02/18 08 90 Nasal 4.0L Cannula 02/18 0727 98.4 104 22 102/64 92 Nasal 3.0L Cannula 02/17 2218 98.8 90 22 116/60 96 Nasal 3.0L Cannula 02/17 2159 Nasal 4.0L Cannula 02/17 2005 Nasal 4.0L Cannula 02/17 1600 97 Nasal 4.0L Cannula 02/17 1208 98.8 96 18 124/60 Nasal 4.0L Cannula 02/17 1147 97 Nasal 4.0L Cannula 02/17 1147 94 Nasal 4.0L Cannula 02/17 1023 99.3 96 18 108/56 98 Nasal 4.0L Cannula Intake & Output 02/18 1600 02/18 0800 02/18 0000 Intake Total Output Total 300 200 Balance -300 -200 Output, Urine 300 200 Patient 103.674 kg Weight Weight Bed scale Measurement Method Physical Exam General Appearance: Alert, Oriented X3, Cooperative, No Acute Distress Skin: No Significant Lesion HEENT: Atraumatic, PERRLA, EOMI Neck: Supple Cardiovascular: Regular Rate, Normal S1, No Murmurs Lungs: +CRACKLES IN ALL LUNG ANDERSON Abdomen: Soft, No Tenderness Neurological: Normal Speech, Strength at 5/5 X4 Ext, Cranial Nerves 3-12 NL Extremities: No Edema Current Medications: Current Medications Sig/Lico Start time Last Medication Dose Route Stop Time Status Admin Acetaminophen 650 MG Q6P PRN 02/17 1215 AC PO Albuterol Sulfate 3 ML TID 02/18 900 AC 02/18 INH 0806 Aspirin 81 MG DAILY 02/18 09 AC 02/18 PO 0841 Atorvastatin Calcium 10 MG QPM 052099 AC 02/17 PO 2002 Bupropion HCl 300 MG QAM 02/18 0900 AC 02/18 PO 0841 Dipyridamole/Aspirin 1 CAP BID 02/17 2100 AC 02/18 PO 840 Escitalopram Oxalate 40 MG AT BEDTIME 02/17 2100 AC 02/17 PO 2001 Furosemide 40 MG 7:30 AM, & 4:30 PM 02/18 0730 AC 02/18 IV 0840 Hydroxychloroquine 200 MG BID 02/17 2100 AC 02/18 Sulfate PO 0841 Ibuprofen 600 MG Q6P PRN 02/17 1215 AC PO Lorazepam 1 MG BID 02/17 2100 AC 02/18 PO 0844 Omeprazole 40 MG DAILY AC 02/17 1535 AC 02/18 PO 0621 Oxycodone/ 1 TAB Q6P PRN 02/17 121 AC Acetaminophen PO Potassium Chloride 20 MEQ Q1 02/18 1000 UNVr PO 02/18 1101 Potassium Chloride 10 MEQ Q1H 02/18 1000 UNVr IV 02/18 1101 Prednisone 5 MG DAILY 02/18 09 AC 02/18 PO 0841 Last 24 Hrs of Lab/Michael Results Last 24 Hrs of Labs/Mics: Laboratory Tests 02/18/18 0635: Anion Gap 11, Estimated GFR 58 L, BUN/Creatinine Ratio 17.0, PT 69.8 *H, INR 6.29 *H, CBC w Diff NO MAN DIFF REQ, RBC 3.24 L, MCV 83.5, MCH 26.9 L, MCHC 32.2 L, RDW 18.1 H, MPV 7.6, Gran % 85.6 H, Lymphocytes % 6.7 L, Monocytes % 7.1, Eosinophils % 0.4, Basophils % 0.2, Absolute Granulocytes 8.4 H, Absolute Lymphocytes 0.7 L, Absolute Monocytes 0.7 H, Absolute Eosinophils 0, Absolute Basophils 0 02/17/18 2045: Troponin I 0.02 02/17/18 1635: Urine Color YEL, Urine Clarity CLEAR, Urine pH 6.5, Ur Specific [place] 1.015, Urine Protein NEG, Urine Ketones NEG, Urine Nitrite NEG, Urine Bilirubin NEG, Urine Urobilinogen 0.2, Ur Leukocyte Esterase NEG, Ur Microscopic EXAM NOT REQUIRED, Urine Hemoglobin NEG, Urine Glucose NEG 02/17/18 1435: Troponin I 0.03 Microbiology 02/17 1635 URINE ROUT: Legionella Antigen - RES 02/17 1635 URINE ROUT: Streptococcus pneumoniae Antigen (M - RES 02/17 1635 URINE ROUT: Urine Culture - RES 02/17 1505 BLOOD: Blood Culture - RECD 02/17 1435 BLOOD: Blood Culture - RECD 02/17 1319 LOWER RESP: Respiratory Culture - COLB 02/17 1319 LOWER RESP: Gram Stain - COLB Assessment/Plan Assessment: This is a 51-year-old lady with a PMH of heart failure with preserved ejection fraction, COPD on 3 L O2, ASA on CPAP, fibromyalgia, sero-negative rheumatoid arthritis on chronic prednisone and hydroxychloroquine, recurrent calcium oxalate stones s/p lithotripsy, paroxysmal atrial fibrillation on Coumadin, 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 in 2017, with hx of intubation for hypoxic respiratory failure, who comes in for chief complaint of shortness of breath. Chest x-ray shows extensive pulmonary edema. This patient has a known history of bicuspid mitral valve with superimposed rheumatic heart disease. Given the BNP and x-ray with significant edema, possible etiology for this patient's presentation is valvular heart failure, though other etiologies such as CAD with new systolic HF and infection cannot be ruled out. PLAN: Acute hypoxic respiratory failure: Xry with pulm and alveolar edema. BNP 1230. She has been as low as 811 in March 2017 but in Dec 2016 she was up to 5630. This presentation likely secondary to her mod-severe MR. * TRC/O2 as necessary * Pending Echo * Sputum culture/bcx * Holding off abx * Would consider pro-juan antonio in this patient if she doesnt improve after diuresis * I/O * Plan is to continue IV lasix 40 BID * Strep swab/Legionella swab * Holding her metoprolol in setting of heart failure.Will plan to start today * Appreciate cardio consult Afib with elevated INR: INR up to 6 today * Hold Coumadin today * Follow up tomorrow Heart failure with preserved ejection fraction: BNP 1230. * Repeat echo * Appreciate Cardio consult CVA: * Con't ASA * Con't Aggrenox Hypertension: * Con't monitor Anxiety and depression: * Con't Bupropion * Con't Lexapro RA and fibromyalgia: * Con't Hydroxychloroquine * Con't Prednisone 5mg Anemia: She has had HB around 9.1 before, today 8.7. Con't monitor. * Monitor CBC fc hhd on sodium restriction coumadin ppx Problem List: 1. Shortness of breath 2. Elevated INR Pain Ratin Pain Location: none Pain Goal: Remain pain free Pain Plan: none Tomorrow's Labs & Rationales: cbc bep DemiGerald estrada 02/18/18 1053: Attending MD Review Statement Attending Statement Attending MD Statement: examined this patient, discuss w/resident/PA/RADIO DIVISION CAPTAIN, agreed w/resident/PA/[employer]IO DIVISION CAPTAIN, discussed with family, reviewed EMR data (avail), discussed with nursing, discussed with case mgmt, reviewed images, amended to note Attending Assessment/Plan: Patient on oxygen supplementation 3-4l this am, Crackles improved on bases with iv lasix. ECHO pending, cardiology on board. Serial cardiac enzymes negative. Continue diureiss and monitor I/O, daily weights, Monitor INR. Coumadin on hold.
--- NOTE | 2018-02-18 10:55 | RADIOLOGY REPORT ---
EXAMINATION: XR PORTABLE CHEST CLINICAL INFORMATION: 52-year-old female with the clinical diagnosis of pulmonary edema. COMPARISON: Chest radiograph done on 02/17/2018. TECHNIQUE: Portable frontal view of the chest was obtained. FINDINGS: Persistent bilateral near diffuse nonspecific patchy airspace disease is noted, may represent infection versus edema. Interval development of ill-defined opacity obscuring the right hemidiaphragm is noted, may represent progressive airspace disease versus evolving small right-sided effusion. No other significant change. The cardiomediastinal silhouette remain enlarged. The visualized upper abdomen is unremarkable. IMPRESSION: 1. Interval development of focal airspace opacity at right lung base obscuring the right hemidiaphragm, may represent progressive airspace disease versus evolving small right pleural effusion. 2. No other significant interval change. Specifically, no radiographic evidence of any definite improvement.
--- NOTE | 2018-02-18 13:54 | PN- Cardiology ---
Subjective Subjective: The patient is doing somewhat better today. She feels her respiratory status has improved somewhat with mild diuresis. No other symptoms. Objective Vital Signs and I&Os Vital Signs Date Time Temp Pulse Resp B/P B/P Pulse O2 O2 Flow FiO2 Mean Ox Delivery Rate 02/18 0902 Nasal 4.0L Cannula 02/18 08 90 Nasal 4.0L Cannula 02/18 07 98.4 104 22 102/64 92 Nasal 3.0L Cannula 02/17 2218 98.8 90 22 116/60 96 Nasal 3.0L Cannula 02/17 2159 Nasal 4.0L Cannula 02/17 2005 Nasal 4.0L Cannula 02/18 1600 97 Nasal 4.0L Cannula Intake & Output 02/18 0000 02/17 0000 Intake Total 400 Output Total 300 200 800 300 Balance -300 -200 -400 -300 Intake, Oral 400 Output, Urine 300 200 800 300 Patient 229 lb 220 lb 220 lb Weight Weight Bed scale Reported by Patient Measurement Method Physical Exam: General Appearance: well developed/nourished, overweight white female, alert, awake, oriented Head: normal HEENT: Normal Neck: supple, JVP normal, carotid upstrokes normal bilaterally, no masses or thyromegaly Respiratory: chest non-tender, scattered crackles with improved aeration Cardiovascular: regular rate/rhythm, normal S1, S2, 1-2/6 systolic murmur; 1/6 to 2/6 diastolic rumble of mitral stenosis Abdomen: normal bowel sounds, soft, non-tender Extremities: normal inspection, no edema Vascular: Pulses are 2+ and equal bilaterally Neurologic: Grossly normal/nonfocal Current Medications: Current Medications Sig/Lico Start time Last Medication Dose Route Stop Time Status Admin Acetaminophen 650 MG Q6P PRN 02/17 1215 AC PO Albuterol Sulfate 3 ML TID 02/18 900 AC 02/18 INH 1252 Aspirin 81 MG DAILY 02/18 900 AC 02/18 PO 08 Atorvastatin Calcium 10 MG QPM 02/17 2100 AC 02/17 PO 2001 Bupropion HCl 300 MG QAM 02/18 900 AC 02/18 PO 0841 Dipyridamole/Aspirin 1 CAP BID 02/17 2100 AC 02/18 PO 08 Escitalopram Oxalate 40 MG AT BEDTIME 02/17 2100 AC 02/17 PO 2002 Furosemide 40 MG 7:30 AM, & 4:30 PM 02/18 0730 AC 02/18 IV 0840 Hydroxychloroquine 200 MG BID 02/17 2100 AC 02/18 Sulfate PO 0841 Ibuprofen 600 MG Q6P PRN 02/17 1215 AC PO Lorazepam 1 MG BID 02/17 2100 AC 02/18 PO 0844 Omeprazole 40 MG DAILY AC 02/17 1535 AC 02/18 PO 0621 Oxycodone/ 1 TAB Q6P PRN 02/17 1215 AC Acetaminophen PO Patient Medication 1 ED ONE ONE 02/18 1345 DC Teaching ED 02/18 1346 Potassium Chloride 20 MEQ Q1 02/18 1000 DC 02/18 PO 02/18 1101 1056 Potassium Chloride 10 MEQ Q1H 02/18 1000 DC 02/18 IV 02/18 1101 1332 Prednisone 5 MG DAILY 02/18 0900 AC 02/18 PO 0841 Results Last 48 Hrs of Labs/Mics: Laboratory Tests 02/18/18 0635: Anion Gap 11, Estimated GFR 58 L, BUN/Creatinine Ratio 17.0, PT 69.8 *H, INR 6.29 *H, CBC w Diff NO MAN DIFF REQ, RBC 3.24 L, MCV 83.5, MCH 26.9 L, MCHC 32.2 L, RDW 18.1 H, MPV 7.6, Gran % 85.6 H, Lymphocytes % 6.7 L, Monocytes % 7.1, Eosinophils % 0.4, Basophils % 0.2, Absolute Granulocytes 8.4 H, Absolute Lymphocytes 0.7 L, Absolute Monocytes 0.7 H, Absolute Eosinophils 0, Absolute Basophils 0 02/17/18 2045: Troponin I 0.02 02/17/18 1635: Urine Color YEL, Urine Clarity CLEAR, Urine pH 6.5, Ur Specific [place] 1.015, Urine Protein NEG, Urine Ketones NEG, Urine Nitrite NEG, Urine Bilirubin NEG, Urine Urobilinogen 0.2, Ur Leukocyte Esterase NEG, Ur Microscopic EXAM NOT REQUIRED, Urine Hemoglobin NEG, Urine Glucose NEG 02/17/18 1435: Troponin I 0.03 02/17/18 0806: Anion Gap 11, Estimated GFR 52 L, BUN/Creatinine Ratio 17.3, Glucose 104 H, Calcium 9.0, Magnesium 1.7, Troponin I 0.02, [id number]-G-Tjmbnyddlyv Pept 1230 H, PT 89.2 *H, INR 8.01 *H, CBC w Diff NO MAN DIFF REQ, RBC 3.35 L, MCV 85.2, MCH 27.3, MCHC 32.0 L, RDW 17.8 H, MPV 7.4, Gran % 84.9 H, Lymphocytes % 7.7 L, Monocytes % 5.5, Eosinophils % 0.5, Basophils % 1.4, Absolute Granulocytes 8.8 H, Absolute Lymphocytes 0.8 L, Absolute Monocytes 0.6, Absolute Eosinophils 0, Absolute Basophils 0.1 Assessment/Plan Assessment/Plan Assessment: 1. Worsening shortness of breath of relatively acute onset with evidence of pulmonary edema on chest x-ray and examination consistent with HFpEF-at the moment, the etiology of the patient's acute CHF is unclear. This may represent acute on chronic diastolic heart failure, worsening mitral valve disease, etc. 2. History of aortic stenosis, status post transcatheter valve replacement 3. 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 Paroxysmal atrial for ablation 5. History of hypertension 6. History of pulmonary disease 7. History of sleep apnea 8. Supratherapeutic INR 9. Normocytic anemia Recommendations: -Continue to monitor on telemetry -Diuresis with IV Lasix to be continued -Close monitoring of intakes, outputs, daily weights, and daily labs -Echocardiogram shows normal function of the bioprosthetic aortic valve replacement, mild mitral stenosis, mild mitral insufficiency, and normal left ventricular systolic function. -Warfarin on hold pending therapeutic INR of 2.5-3.0 -If the patient's status does not improve significantly over the next 24 hours with diuresis, consider pulmonary follow-up and input -Reassess in 24 hours Continue telemetry? Yes
[2018-02-18 14:47] VITALS: BP 108/62
--- NOTE | 2018-02-18 16:02 | ECHOCARDIOGRAM REPORT ---
JAISON VELASQUEZ Age: 52 : 1965 Gender: F Exam Date: 02/17/2018 18:52 Exam Location: [address] Ht (in): 65 Wt (lb): 220 BSA: 2.18 BP: 124 / 60 Ordering Physician: Beverly Clarke MD Referring Physician: Jacek Lira MD Technologist: Melody Madera [facility] Room Number: 174-02 Indications: HEART FAILURE Rhythm: Sinus Technical Quality: Fair FINDINGS Left Ventricle Normal size left ventricle. No obvious regional wall motion abnormalities. Left ventricular wall thickness increased. Normal left ventricular ejection fraction estimated at 60-65%. Right Ventricle Right ventricular dilatation. Right Atrium Right atrial dilatation. Left Atrium Moderate left atrial dilatation. Mitral Valve Mitral valve thickened. Mild mitral stenosis. Mild to moderate mitral regurgitation. Aortic Valve Normally functioning prosthetic aortic valve. Bioprosthetic aortic valve. Tricuspid Valve Tricuspid valve not well visualized, grossly normal. Mild tricuspid regurgitation. Pulmonic Valve Pulmonic valve not well visualized, grossly normal. Pericardium No pericardial effusion. Great Vessels Aortic root and proximal ascending aorta not well visualized, grossly normal. CONCLUSIONS 1. A TAVR is present which appears to be functioning normally. The peak gradient across the bioprosthetic valve is 24 mmHg. 2. Mitral leaflet thicneing is present with anatomic findings consistent with rheumatic valvular disease with mild mitral stenosis (PDG 26 mmHg; MDG 15 mmHg ; MVA 2.3 cm2) and mild to moderate mitral insufficiency with moderate left atrial enlargement. 3. There is no significant pericardial fluid present. 4. The left ventricular chamber size and systolic function appear normal. Mild concentric hypertrophy is present with mild diastolic dysfunction. Flattening of the interventricular septum is present consistent with the presence of pulmonary hypertension. 5. Mild right heart chamber enlargement is present with minimal to mild tricuspid insufficiency. The RV systolic pressure could not be accurately assessed. 6. Color flow imaging raises the possibility of a small shunt in the mid atrial septum but this area was not well defined. Jacek Lira M.D. (Electronically Signed) Final Date: 18 Feb 2018 16:01 MEASUREMENTS (Male / Female) Normal Values 2D ECHO LV Diastolic Diameter PLAX 4.7 cm 4.2 - 5.9 / 3.9 - 5.3 cm LV Systolic Diameter PLAX 3.0 cm 2.1 - 4.0 cm LV Fractional Shortening PLAX 36.2 % 25 - 46 % LV Ejection Fraction 2D Teich 65.8 % IVS Diastolic Thickness 1.3 cm LVPW Diastolic Thickness 1.3 cm LV Relative Wall Thickness 0.6 RV Internal Dim ED PLAX 2.6 cm 1.9 - 3.8 cm LVOT Diameter 2.0 cm Aortic Root Diameter 3.1 cm LA Systolic Diameter LX 4.8 cm 3.0 - 4.0 / 2.7 - 3.8 cm LA Volume 64.0 cm 18 - 58 / 22 - 52 cm Ascending Aorta Diameter 3.3 cm DOPPLER AV Peak Velocity 243.0 cm/s AV Peak Gradient 23.6 mmHg AV Mean Velocity 167.0 cm/s AV Mean Gradient 13.0 mmHg AV Velocity Time Integral 45.1 cm LVOT Peak Velocity 124.0 cm/s LVOT Peak Gradient 6.2 mmHg LVOT Mean Velocity 83.2 cm/s LVOT Mean Gradient 3.0 mmHg LVOT Velocity Time Integral 23.3 cm LVOT Stroke Volume 73.2 cm AV Area Cont Eq vti 1.6 cm AV Area Cont Eq pk 1.6 cm MV Peak Velocity 244.3 cm/s MV Peak Gradient 23.9 mmHg MV Mean Velocity 166.7 cm/s MV Mean Gradient 12.7 mmHg Mitral E Point Velocity 194.0 cm/s Mitral A Point Velocity 209.0 cm/s Mitral E to A Ratio 0.9 MV PHT Velocity 236.0 cm/s MV Deceleration [place] 774.0 cm/s MV Pressure Half Time 91.5 ms MV Area PHT 2.4 cm MV Deceleration Time 343.0 ms TR Peak Velocity 178.0 cm/s TR Peak Gradient 12.7 mmHg Right Atrial Pressure 5.0 mmHg Pulmonary Artery Systolic Pressu 17.7 mmHg Right Ventricular Systolic Press 17.7 mmHg PV Peak Velocity 124.0 cm/s PV Peak Gradient 6.2 mmHg PV Mean Velocity 73.1 cm/s PV Mean Gradient 3.0 mmHg PV Velocity Time Integral 21.9 cm LV E' Lateral Velocity 11.6 cm/s Mitral E to LV E' Lateral Ratio 16.7 LV E' Septal Velocity 7.7 cm/s Mitral E to LV E' Septal Ratio 25.3
[2018-02-18 22:31] VITALS: BP 122/62
--- NOTE | 2018-02-19 03:56 | PN- Housestaff ---
[facility] 02[facility] 0355: Subjective Follow-up For: sob Subjective: Saw pt at bedside this AM. She seemed more SOB than yesterday. She was up to 5 L o2 and still slightly dyspneic. No acute overnight events or complaints. Review of Systems Constitutional: Denies: chills, weakness. EENTM: Reports: no symptoms. Respiratory: Reports: orthopnea, short of breath. Gastrointestinal: Denies: abdominal pain. Genitourinary: Reports: no symptoms. Musculoskeletal: Reports: no symptoms. Skin: Reports: no symptoms. Objective Last 24 Hrs of Vital Signs/I&O Vital Signs Date Time Temp Pulse Resp B/P B/P Pulse O2 O2 Flow FiO2 Mean Ox Delivery Rate 02/19 0709 99.4 02/19 0600 100.1 100 22 110/64 93 Nasal 3.0L Cannula 02/18 2231 99.2 109 22 122/62 91 Nasal Cannula 02/18 2104 Nasal 4.0L Cannula 02/18 1943 92 Nasal 4.0L Cannula 02/18 1447 98.4 102 24 108/62 92 Nasal 4.0L Cannula 02/18 0902 Nasal 4.0L Cannula 02/18 0806 90 Nasal 4.0L Cannula Intake & Output 02/19 0800 02/19 0000 02/18 1600 Intake Total 600 Output Total 600 1400 Balance -600 -800 Intake, IV 200 Intake, Oral 400 Output, Urine 600 1400 Patient 102.512 kg Weight Weight Bed scale Measurement Method Physical Exam General Appearance: Alert, Oriented X3, Cooperative HEENT: Atraumatic, PERRLA, EOMI Neck: Supple Cardiovascular: Regular Rate, Normal S1, Normal S2, No Murmurs Lungs: diffusely crackly in lower lung bases. no wheezes or rhonchi Abdomen: Soft, No Tenderness Neurological: Normal Speech, Cranial Nerves 3-12 NL Extremities: 2+ edema bilat LE Current Medications: Current Medications Sig/Lico Start time Last Medication Dose Route Stop Time Status Admin Acetaminophen 650 MG Q6P PRN 02/17 1215 AC PO Albuterol Sulfate 3 ML TID 02/18 900 AC 02/18 INH 1913 Aspirin 81 MG DAILY 02/18 0900 AC 02/18 PO 0841 Atorvastatin Calcium 10 MG QPM 02/17 2100 AC 02/18 PO 2100 Bupropion HCl 300 MG QAM 02/18 900 AC 02/18 PO 0841 Dipyridamole/Aspirin 1 CAP BID 02/17 2100 AC 02/18 PO 2100 Escitalopram Oxalate 40 MG AT BEDTIME 02/17 2100 AC 02/18 PO 2100 Furosemide 40 MG 7:30 AM, & 4:30 PM 02/18 0730 AC 02/18 IV 1600 Hydroxychloroquine 200 MG BID 02/17 2100 AC 02/18 Sulfate PO 2100 Ibuprofen 600 MG Q6P PRN 02/17 1215 AC PO Lorazepam 1 MG BID 02/17 2100 AC 02/18 PO 2100 Omeprazole 40 MG DAILY AC 02/17 1535 AC 02/19 PO 0551 Oxycodone/ 1 TAB Q6P PRN 02/17 1215 AC Acetaminophen PO Patient Medication 1 ED ONE ONE 02/18 1345 DC Teaching ED 02/18 1346 Potassium Chloride 20 MEQ Q1 02/18 1000 DC 02/18 PO 02/18 1101 1056 Potassium Chloride 10 MEQ Q1H 02/18 1000 DC 02/18 IV 02/18 1101 1332 Prednisone 5 MG DAILY 02/18 0900 AC 02/18 PO 0841 Last 24 Hrs of Lab/Michael Results Last 24 Hrs of Labs/Mics: Laboratory Tests 02/19/18 0630: Sodium Pending, Potassium Pending, Chloride Pending, Carbon Dioxide Pending, Anion Gap Pending, BUN Pending, Creatinine Pending, BUN/Creatinine Ratio Pending , PT Pending, INR Pending, CBC w Diff Pending, WBC Pending, RBC Pending, Hgb Pending, Hct Pending, MCV Pending, MCH Pending, MCHC Pending, RDW Pending, Plt Count Pending, MPV Pending Assessment/Plan Assessment: This is a 51-year-old lady with a PMH of heart failure with preserved ejection fraction, COPD on 3 L O2, ASA on CPAP, fibromyalgia, sero-negative rheumatoid arthritis on chronic prednisone and hydroxychloroquine, recurrent calcium oxalate stones s/p lithotripsy, paroxysmal atrial fibrillation on Coumadin, 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 Chest x-ray shows extensive pulmonary edema. Given the BNP and x- ray with significant edema, possible etiology for this patient's presentation is valvular heart failure, though other etiologies such as CAD with new systolic HF and infection cannot be ruled out. PLAN: Acute hypoxic respiratory failure:MR didn't seem impressive during this admission. Unsure of etiology of her acute hypoxic respiratory failure. Strep swab/Legionella swab negative. * TRC/O2 as necessary * Sputum culture/bcx * Holding off abx * Would consider pro-juan antonio in this patient if she doesnt improve after diuresis * I/O * Plan is to continue IV lasix 40 BID * Appreciate cardio consult Afib with elevated INR: Pendng INR * Dose Coumadin accordingly * Follow up tomorrow Heart failure with preserved ejection fraction: BNP 1230. * Appreciate Cardio consult CVA: * Con't ASA * Con't Aggrenox Hypertension: * Con't monitor Anxiety and depression: * Con't Bupropion * Con't Lexapro RA and fibromyalgia: * Con't Hydroxychloroquine * Con't Prednisone 5mg Anemia: Con't monitor. * Monitor CBC fc hhd on sodium restriction coumadin ppx Problem List: 1. Shortness of breath 2. Elevated INR Pain Ratin Pain Location: none Pain Goal: Remain pain free Pain Plan: none Tomorrow's Labs & Rationales: cbc bep inr Alberto Sequeira MD 02/19/18 1508: Attending MD Review Statement Attending Statement Attending MD Statement: examined this patient, discuss w/resident/PA/CHANGE ADVISOR, agreed w/resident/PA/CHANGE ADVISOR, reviewed EMR data (avail) Attending Assessment/Plan: Ms. Gallardo is a 52-year-old female with history of rheumatic heart disease, h/o TAVR, severe mitral stenosis significant interstitial lung disease with restrictive competent,(s) sleep apnea on CPAP, rheumatoid arthritis, proximal atrial fibrillation on Coumadin, previous stroke, hypertension dyslipidemia now presents with respiratory failure Patient on oxygen supplementation 5 liters this am, continuing with IV lasix BID. Continue with the same ECHO pending, cardiology on board. Serial cardiac enzymes negative. Continue diuresis and monitor I/O, daily weights, Monitor INR. Coumadin on hold due to supratherapeutic INR. Hypokalemia will replace and monitor Will follow up on echocardiogram blood cultures urine cultures and pneumonia workup that was sent.
[2018-02-19 06:00] VITALS: BP 110/64
[2018-02-19 08:05] LABS: ABSOLUTE BASOPHIL COUNT 0 /CUMM (0.0-0.2); ABSOLUTE EOSINOPHIL COUNT 0.2 /CUMM (0.0-0.7); ABSOLUTE GRANULOCYTE CT 6.9 /CUMM (1.4-6.5); ABSOLUTE LYMPH COUNT 0.9 /CUMM (1.2-3.4); ABSOLUTE MONOCYTE COUNT 0.8 /CUMM (0.10-0.60); BASOPHIL % 0.2 % (0.0-2.0); EOSINOPHIL % 1.8 % (0-5); GRANULOCYTE % 79.3 % (42.2-75.2); HEMATOCRIT 25.8 % (37-47); MEAN CORPUSCULAR HGB 26.8 PG (27.0-31.0); MEAN CORPUSCULAR HGB CONC 31.8 G/DL (33.0-37.0); MEAN CORPUSCULAR VOLUME 84.2 FL (81.0-99.0); MEAN PLATELET VOLUME 7.8 FL (7.4-10.4); PLATELET COUNT 305 /CUMM (130-400); RBC DISTRIBUTION WIDTH 18.1 % (11.5-14.5); RED BLOOD CELL CT 3.07 /CUMM (4.20-5.40); WHITE BLOOD CELL COUNT 8.7 /CUMM (4.8-10.8)
[2018-02-19 08:51] LABS: PT 50.4 SEC (9.4-12.5)
--- NOTE | 2018-02-19 11:41 | PN- Cardiology ---
Subjective Subjective: The patient is awake, alert, feels continued dyspnea The patient had an episode of epistaxis this a.m., controlled with pressure The events of the last 24 hours as well as telemetry were reviewed. Review of Systems: The review of systems is negative for chest pains, palpitations nor lightheadedness. The remainder of the 14 point review of systems is noncontributory with the exception of above. Objective Vital Signs and I&Os Vital Signs Date Time Temp Pulse Resp B/P B/P Pulse O2 O2 Flow FiO2 Mean Ox Delivery Rate 02/19 900 94 Nasal 5.0L Cannula 02/19 0830 92 Nasal 5.0L Cannula 02/19 0709 99.4 02/19 0600 100.1 100 22 110/64 93 Nasal 3.0L Cannula 02/18 2231 99.2 109 22 122/62 91 Nasal Cannula 02/18 2104 Nasal 4.0L Cannula 02/18 1943 92 Nasal 4.0L Cannula 02/18 1447 98.4 102 24 108/62 92 Nasal 4.0L Cannula Intake & Output 02/19 1600 02/19 0800 02/19 0000 02/18 1600 02/18 0800 02/18 0000 Intake Total 600 Output Total 600 1400 300 200 Balance -600 -800 -300 -200 Intake, IV 200 Intake, Oral 400 Output, Urine 600 1400 300 200 Patient 226 lb 229 lb Weight Weight Bed scale Bed scale Measurement Method Physical Exam: General: Nontoxic, no apparent distress. HEENT: Sclera and conjunctiva within normal limits, without xanthelasmas. Neck: Carotids 2+ without bruits. Respiratory: Diffuse rales at both lower to mid lung verduzco, air movement is reduced, without accessory respiratory muscle use. Heart: Regular rate and rhythm, 2 out of 6 systolic ejection murmur at left sternal border, without JVD. Abdomen: Soft, nontender, no masses, normoactive bowel sounds. Extremities: Without clubbing, cyanosis, Neuro: Nonfocal exam, strength, 5 out of 5 Skin: Within normal limits without lesions. Psych: Mood and affect: Normal Current Medications: Current Medications Sig/Lico Start time Last Medication Dose Route Stop Time Status Admin Acetaminophen 650 MG Q6P PRN 02/17 1215 AC PO Albuterol Sulfate 3 ML TID 02/18 900 AC 02/19 INH 0829 Aspirin 81 MG DAILY 02/18 900 AC 02/19 PO 0846 Atorvastatin Calcium 10 MG QPM 02/17 2100 AC 02/18 PO 2099 Bupropion HCl 300 MG QAM 02/18 900 AC 02/19 PO 844 Dipyridamole/Aspirin 1 CAP BID 02/17 2100 AC 02/19 PO 0846 Escitalopram Oxalate 40 MG AT BEDTIME 02/17 2100 AC 02/18 PO 2099 Furosemide 40 MG 7:30 AM, & 4:30 PM 02/18 0730 AC 02/19 IV 0846 Hydroxychloroquine 200 MG BID 02/17 2100 AC 02/19 Sulfate PO 0846 Ibuprofen 600 MG Q6P PRN 02/17 1215 AC PO Lorazepam 1 MG BID 02/17 2100 AC 02/19 PO 45 Omeprazole 40 MG DAILY AC 02/17 1535 AC 02/19 PO 0551 Oxycodone/ 1 TAB Q6P PRN 02/17 1215 AC Acetaminophen PO Patient Medication 1 ED ONE ONE 02/18 1345 DC Teaching ED 02/18 1346 Prednisone 5 MG DAILY 02/18 900 AC 02/19 PO 46 Results Last 48 Hrs of Labs/Mics: Laboratory Tests 02/19/18 0630: Anion Gap 10, Estimated GFR 52 L, BUN/Creatinine Ratio 17.3, PT 50.4 *H, INR 4.55 *H, CBC w Diff NO MAN DIFF REQ, RBC 3.07 L, MCV 84.2, MCH 26.8 L, MCHC 31.8 L, RDW 18.1 H, MPV 7.8, Gran % 79.3 H, Lymphocytes % 9.9 L, Monocytes % 8.8, Eosinophils % 1.8, Basophils % 0.2, Absolute Granulocytes 6.9 H, Absolute Lymphocytes 0.9 L, Absolute Monocytes 0.8 H, Absolute Eosinophils 0.2, Absolute Basophils 0 02/18/18 0635: Anion Gap 11, Estimated GFR 58 L, BUN/Creatinine Ratio 17.0, PT 69.8 *H, INR 6.29 *H, CBC w Diff NO MAN DIFF REQ, RBC 3.24 L, MCV 83.5, MCH 26.9 L, MCHC 32.2 L, RDW 18.1 H, MPV 7.6, Gran % 85.6 H, Lymphocytes % 6.7 L, Monocytes % 7.1, Eosinophils % 0.4, Basophils % 0.2, Absolute Granulocytes 8.4 H, Absolute Lymphocytes 0.7 L, Absolute Monocytes 0.7 H, Absolute Eosinophils 0, Absolute Basophils 0 02/17/18 2045: Troponin I 0.02 02/17/18 1635: Urine Color YEL, Urine Clarity CLEAR, Urine pH 6.5, Ur Specific [place] 1.015, Urine Protein NEG, Urine Ketones NEG, Urine Nitrite NEG, Urine Bilirubin NEG, Urine Urobilinogen 0.2, Ur Leukocyte Esterase NEG, Ur Microscopic EXAM NOT REQUIRED, Urine Hemoglobin NEG, Urine Glucose NEG 02/17/18 1435: Troponin I 0.03 Microbiology 02/17 163 URINE ROUT: Legionella Antigen - COMP 02/17 1635 URINE ROUT: Streptococcus pneumoniae Antigen (M - COMP 02/17 1635 URINE ROUT: Urine Culture - COMP Assessment/Plan Assessment/Plan 1. Acute on chronic HFpEF. at the moment, the etiology of the patient's acute CHF is unclear. 2. History of aortic stenosis, status post transcatheter valve replacement 3. 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 Paroxysmal atrial fibrillation 5. History of hypertension 6. History of pulmonary disease 7. History of sleep apnea 8. Normocytic anemia Acute on chronic congestive heart failure with preserved LV systolic function: The patient presents with recurrence of acute heart failure. She has known severe mitral stenosis with a mean gradient of 12.7, as well as paroxysmal atrial fibrillation. The etiology of her acute congestive heart failure is likely secondary to either mitral stenosis alone or in combination with a paroxysm of arrhythmia such as atrial fibrillation causing the acute decompensation. Given her severe mitral stenosis, we should attempt to more adequately control her heart rate. Weight tracking has been suboptimal; however, by in hospital records, she may have gained approximately 20 pounds over the past several months. We will continue diuresis, targeting a net output of approximately 1 L per day until symptomatically improved. Further consideration for a right and left heart catheterization to better evaluate her mitral valve and consideration for either balloon valvuloplasty or surgical replacement may be given following improvement. We will continue to monitor on telemetry, and consider an application of an outpatient mobile continuous telemetry to exclude paroxysms of atrial fibrillation and the etiology of her underlying congestive heart failure. Continue telemetry? Yes
--- NOTE | 2018-02-19 12:58 | Cons- Pulmonary ---
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 About two wks ago she states she saw Dr. Levy, the doctor at [facility] who did her TAVR, and had echocardiographic evaluation which was supposedly good. Also about 2 weeks ago she had an ear infection and was given Augmentin and prednisone taper. She has since finished that round of medication and return to her baseline for several days. She is an ex-smoker, quit 10 years ago. Prior to that she had less than a half pack per day habit for about 10 years. No pertinent family history. Surgical history pertinent for TAVR and multiple lithotripsies. She denies any headache, nausea, vomiting, diarrhea chest pain, palpitations, productive cough, fever, URI symptoms, sick contacts, recent travel or any deviation from her norm. She does endorse shortness of breath, and fatigue. At baseline she is orthopneic with about a 3 pillow requirement. She is at previous lung biopsy. Biopsy report not available. Her previous FE V1 and total lung capacity suggestive of very severe restrictive lung disease suggestive of interstitial lung disease probably related to her rheumatoid arthritis versus other causes including drug-induced lung disease. Allergies/Medications Allergies: Coded Allergies: Sulfa (Sulfonamide Antibiotics) (N/V 01/04/17) Home Med List: Albuterol Sulfate (Proair Hfa) 90 MCG HFA.AER.AD 2 PUF INH Q4-6 PRN PRN SHORTNESS OF BREATH (Reported) Aspirin (Aspirin*) 81 MG TAB.CHEW 1 TAB PO DAILY HEART HEALTH (Reported) Atorvastatin Calcium 10 MG TABLET 1 TAB PO QPM CHOLESTEROL (Reported) Bupropion HCl (Bupropion XL) 300 MG TAB.ER.24H 1 TAB PO QAM ANXIETY/DEPRESSION (Reported) Cholecalciferol (Vitamin D3) (Vitamin D3) 2,000 UNIT TABLET 3 TAB PO DAILY VITAMIN SUPPORT (Reported) Cyanocobalamin (Vitamin B-12) 1,000 MCG TABLET 1 TAB PO DAILY VITAMIN SUPPORT (Reported) Cyclobenzaprine HCl 10 MG TABLET 1 TAB PO BID PRN MUSCLE SPASMS (Reported) Dipyridamole W/ Aspirin (Aggrenox 25 MG-200 MG Capsule) 25 MG-200 MG CPMP.12HR 1 CAP PO BID BLOOD THINNER (Reported) Escitalopram Oxalate (Lexapro) 20 MG TABLET 2 TAB PO QPM MENTAL HEALTH ( Reported) Furosemide (Lasix) 40 MG TABLET 1 TAB PO DAILY WATER RETENTION (Reported) Hydroxychloroquine Sulfate 200 MG TABLET 1 TAB PO BID RA (Reported) Ibuprofen/Famotidine (Duexis 800-26.6 MG Tablet) 800 MG-26.6 MG TABLET 1 TAB PO TID PRN RA (Reported) LORazepam (Ativan) 1 MG TAB 1 TAB PO BID ANXIETY (Reported) Lysine (L-Lysine) 500 MG TABLET 1 TAB PO BID SUPPLEMENT (Reported) Metoprolol Succinate 25 MG TAB 1 TAB PO QAM HEART (Reported) Prednisone 5 MG TABLET 1 TAB PO DAILY RA (Reported) Pregabalin (Lyrica) 150 MG CAPSULE 1 CAP PO BID PAIN (Reported) Warfarin Sodium (Coumadin) 5 MG TABLET 1 TAB PO Wednesday BLOOD THINNER (Reported) Warfarin Sodium (Coumadin) 2.5 MG TABLET 1 TAB PO SuTuThSa BLOOD THINNER ( Reported) Review of Systems Review of Systems Constitutional: Reports: see HPI. Comments General Appearance Alert, Oriented X3, Cooperative, No Acute Distress Skin patient has some bruising on her lower extremities HEENT Atraumatic, PERRLA, EOMI, Mucous Membr. moist/pink Neck Supple, No JVD Cardiovascular Regular Rate, Normal S1, Normal S2, ppatient has 2/6 systolic murmur. It was difficult to hear cardiac sounds with the crackles from her lung Lungs patient has diffuse bilateral crackles Abdomen Normal Bowel Sounds, Soft, No Tenderness Extremities No Robert Past History Travel History Traveled to [place] past 21 day No Medical History Blood Transfusion Hx: Yes Neurological: CVA EENT: EARACHE 2 WEEKS AGO Cardiovascular: AFIB, CHF, hypertension, HYPERLIPIDEMIA RHEAMATIC HEART DISEASE AORTIC STENOSIS TAVAR 01/2017 Respiratory: COPD, MULTILOBAR PNEUMONIA W/ INTUBATION 3L BASELINE INTERSTITIAL LUNG DX Renal: nephrolithiasis, STONES Musculoskeletal: fibromyalgia, rheumatoid arthritis Psychiatric: anxiety, depression Endocrine: NONE Blood Disorders: NONE Cancer(s): NONE INSPECTOR PACKER/Reproductive: NONE Surgical History Surgical History: LITHOTRIPSY THERMAL UTERINE ABLATION Family History Relations & Conditions If Any: MOTHER FH: CAD (coronary artery disease) FH: hypertension Psychosocial History Where Do You Live? Home Who Do You Live With? spouse Services at Home: None Primary Language: Hong Konger Smoking Status: Former Smoker Functional Ability ADLs Independent: dressing, eating, toileting, bathing. Ambulation: independent IADLs Independent: shopping, housework, finances, food prep, telephone, transportation , medication admin. Exam & Diagnostic Data Last 24 Hrs of Vital Signs/I&O Vital Signs Date Time Temp Pulse Resp B/P B/P Pulse O2 O2 Flow FiO2 Mean Ox Delivery Rate 02/19 0900 94 Nasal 5.0L Cannula 02/19 0830 92 Nasal 5.0L Cannula 02/19 0709 99.4 02/19 0600 100.1 100 22 110/64 93 Nasal 3.0L Cannula 02/18 2231 99.2 109 22 122/62 91 Nasal Cannula 02/18 2104 Nasal 4.0L Cannula 02/18 1943 92 Nasal 4.0L Cannula 02/18 1447 98.4 102 24 108/62 92 Nasal 4.0L Cannula Intake & Output 02/19 1600 02/19 0800 05 0000 Intake Total Output Total 600 Balance -600 Output, Urine 600 Patient 226 lb Weight Weight Bed scale Measurement Method Last 48 Hrs of Labs/Michael: Laboratory Tests 02/19/18 0630: Anion Gap 10, Estimated GFR 52 L, BUN/Creatinine Ratio 17.3, PT 50.4 *H, INR 4.55 *H, CBC w Diff NO MAN DIFF REQ, RBC 3.07 L, MCV 84.2, MCH 26.8 L, MCHC 31.8 L, RDW 18.1 H, MPV 7.8, Gran % 79.3 H, Lymphocytes % 9.9 L, Monocytes % 8.8, Eosinophils % 1.8, Basophils % 0.2, Absolute Granulocytes 6.9 H, Absolute Lymphocytes 0.9 L, Absolute Monocytes 0.8 H, Absolute Eosinophils 0.2, Absolute Basophils 0 02/18/18 0635: Anion Gap 11, Estimated GFR 58 L, BUN/Creatinine Ratio 17.0, PT 69.8 *H, INR 6.29 *H, CBC w Diff NO MAN DIFF REQ, RBC 3.24 L, MCV 83.5, MCH 26.9 L, MCHC 32.2 L, RDW 18.1 H, MPV 7.6, Gran % 85.6 H, Lymphocytes % 6.7 L, Monocytes % 7.1, Eosinophils % 0.4, Basophils % 0.2, Absolute Granulocytes 8.4 H, Absolute Lymphocytes 0.7 L, Absolute Monocytes 0.7 H, Absolute Eosinophils 0, Absolute Basophils 0 02/17/18 2045: Troponin I 0.02 02/17/18 1635: Urine Color YEL, Urine Clarity CLEAR, Urine pH 6.5, Ur Specific [place] 1.015, Urine Protein NEG, Urine Ketones NEG, Urine Nitrite NEG, Urine Bilirubin NEG, Urine Urobilinogen 0.2, Ur Leukocyte Esterase NEG, Ur Microscopic EXAM NOT REQUIRED, Urine Hemoglobin NEG, Urine Glucose NEG 02/17/18 1435: Troponin I 0.03 Microbiology 02/17 1635 URINE ROUT: Legionella Antigen - COMP 02/17 163 URINE ROUT: Streptococcus pneumoniae Antigen (M - COMP 02/17 163 URINE ROUT: Urine Culture - COMP Assessment/Plan Impression/Plan: General: Nontoxic, no apparent distress. HEENT: Sclera and conjunctiva within normal limits, without xanthelasmas. Neck: Carotids 2+ without bruits. Respiratory: Diffuse rales at both lower to mid lung verduzco, air movement is reduced, without accessory respiratory muscle use. Heart: Regular rate and rhythm, 2 out of 6 systolic ejection murmur at left sternal border, without JVD. Abdomen: Soft, nontender, no masses, normoactive bowel sounds. Extremities: Without clubbing, cyanosis, Neuro: Nonfocal exam, strength, 5 out of 5 Skin: Within normal limits without lesions. Psych: Mood and affect: Normal IMPRESSION This is a 51-year-old lady with history of rheumatic heart, previous TAVR, severe mitral stenosis, significant interstitial lung disease with previous PFT suggestive of severe restrictive pulmonary physiology, obstructive sleep apnea on CPAP, rheumatoid arthritis which is seronegative on chronic prednisone and Plaquenil, previous amiodarone use, previous multiple renal stones and lithotripsy, paroxysmal atrial fibrillation on warfarin, previous CVA due to vegetation, aortic valve with endocarditis, hypertension and hyperlipidemia, previous respiratory insufficiency now has * Acute on chronic hypoxemic respiratory insufficiency related to heart failure with preserved ejection fraction. Patient does have severe mitral stenosis with significantly worsening gradient with on and off tachycardia with her paroxysmal atrial fibrillation now on maximum medical therapy. Patient has had fluid overload with weight gain while in the hospital and aggressive attempts at diuresis is ongoing * Severe interstitial lung disease by review of CT scan, patient has had a lung biopsy and report is not available yet but will try to obtain. This may be related to drug-induced lung disease like amiodarone lung versus rheumatoid lung which seems less likely as she has seronegative rheumatoid arthritis etc. Biopsy report would be helpful. Patient does not have COPD and she has very restrictive pulmonary physiology from her PFTs. Some of her shortness of breath may be related to that * Rule out acute interstitial pneumonitis but this seems very unlikely, no evidence suggestive of superimposed infection like P.J. P etc. Patient was only on 5 mg of prednisone at home. * Previous hilar and mediastinal lymphadenopathy probably related to heart failure which seems to be much reduced in the prior CTs. This needs serial follow-up. No clinical evidence suggestive of lymphoproliferative disease or other primary lung malignancy. * History of rheumatic fever with severe mitral valve disease, previous aortic valve replacement with endocarditis. Cultures have been negative so far * Obstructive sleep apnea compliant on CPAP with secondary pulmonary hypertension related to mitral stenosis and valvular heart disease and severe ASA with morbid obesity compounding the issue. Patient is compliant with her CPAP this needs to be continued * Fibromyalgia, chronic anemia which needs to be investigated further. Patient is on anticoagulation. * Mild chronic kidney disease as well RECOMMENDATION * Continue attempts to aggressively diurese * We will try to get her biopsy report from a lung biopsy * Discontinue ibuprofen as she is on warfarin and anemia and high INR * Continue current medications * Patient's heart rate may need to be reduced as noted by cardiology note. But would prefer to avoid any amiodarone use in the future as she may have had amiodarone-induced lung disease in the past * If she were to need beta kendall for heart rate control that's could be continued and used as she does not have significant bronchospasm she will be able to tolerate beta kendall * Await blood cultures to rule out endocarditis but this seems less likely * Continue current dose of steroids * Discontinue albuterol nebulizer and use ipratropium when necessary for wheezing only. Please note patient does not have COPD We'll follow closely Consult Acknowledgment - Thank you for your consult request.
[2018-02-19 14:32] VITALS: BP 110/70
[2018-02-20] VITALS: BP 100/60
[2018-02-20 06:30] VITALS: BP 100/58
--- NOTE | 2018-02-20 08:24 | PN- Housestaff ---
Joe CROOKS,[facility] 02/20/18 0824: Subjective Follow-up For: Dyspnea Tele-Events Since Last Visit: NSR with HR 83-90. No overnight events. Subjective: Patient was seen and examined at bedside. She still feels significantly short of breath worsened with exertion. No other complaints. Review of Systems Constitutional: Reports: no symptoms. Respiratory: Reports: short of breath. Objective Last 24 Hrs of Vital Signs/I&O Vital Signs Date Time Temp Pulse Resp B/P B/P Pulse O2 O2 Flow FiO2 Mean Ox Delivery Rate 02/20 0929 97 Nasal 4.0L Cannula 02/20 0800 97 Nasal 4.0L Cannula 02/20 0630 98.4 91 22 100/58 92 02/20 0000 Nasal 5.0L Cannula 02/20 0000 98.0 97 20 100/60 92 02/19 1854 102 114/76 02/19 1611 93 Nasal 5.0L Cannula Intake & Output 02/20 1600 02/20 0800 02/20 0000 Intake Total 200 Output Total 634 781 8286 Balance -900 -150 -800 Intake, Oral 200 Output, Urine 819 037 0113 Patient 222 lb Weight Physical Exam General Appearance: Alert, Oriented X3, Cooperative, Mild Distress Skin: No Rashes, No Breakdown Skin Temp/Moisture Exam: Warm/Dry Sepsis Skin Exam (color): Normal for Ethnicity HEENT: Atraumatic Cardiovascular: Normal S1, Normal S2, No Murmurs Lungs: decreased air movement with bibasilar crackles Abdomen: Soft, No Tenderness Neurological: Normal Speech Extremities: No Cyanosis, No Edema Last 24 Hrs of Lab/Michael Results Last 24 Hrs of Labs/Mics: Laboratory Tests 02/20/18 0720: Anion Gap 10, Estimated GFR 52 L, BUN/Creatinine Ratio 20.9, PT 39.3 H, INR 3.56 H, CBC w Diff NO MAN DIFF REQ, RBC 3.01 L, MCV 84.5, MCH 26.8 L, MCHC 31.7 L, RDW 18.6 H, MPV 7.8, Gran % 74.0, Lymphocytes % 12.6 L, Monocytes % 8.8, Eosinophils % 4.2, Basophils % 0.4, Absolute Granulocytes 5.8, Absolute Lymphocytes 1.0 L, Absolute Monocytes 0.7 H, Absolute Eosinophils 0.3, Absolute Basophils 0 Assessment/Plan Assessment: 51-year-old lady with a PMH of heart failure with preserved ejection fraction, COPD on 3 L O2, ASA on CPAP, fibromyalgia, sero-negative rheumatoid arthritis on chronic prednisone and hydroxychloroquine, recurrent calcium oxalate stones s/p lithotripsy, paroxysmal atrial fibrillation on Coumadin, 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 Assessment and Plan: Acute hypoxic respiratory failure likely secondary to Acute on chronic HFpEF: Unsure of etiology of her acute hypoxic respiratory failure. Likely multifactorial. Strep swab/Legionella swab were negative. * TRC/O2 as necessary. Currently on 4L. * Sputum culture/bcx - negative so far. Final results pending. * Holding off abx * I/O * continue IV lasix 40 BID until symptomatically improved. * Appreciate cardio recs * She has severe MS which could be contributing to her symptoms. Afib with elevated INR: * INR 3.56 today. * Will dose Coumadin 2.5mg today. * Follow up tomorrow Heart failure with preserved ejection fraction: BNP 1230 on admission. * Appreciate Cardio consult CVA: * Con't ASA * Con't Aggrenox Hypertension: * Con't monitor Anxiety and depression: * Con't Bupropion * Con't Lexapro RA and fibromyalgia: * Con't Hydroxychloroquine * Con't Prednisone 5mg Anemia: Con't monitor. * Monitor CBC Full Code hhd on sodium restriction coumadin ppx Problem List: 1. Shortness of breath Pain Ratin Pain Location: none Pain Goal: Remain pain free Pain Plan: none Tomorrow's Labs & Rationales: CBC, BEP, INR Alberto Sequeira MD 02/20/18 1342: Attending MD Review Statement Attending Statement Attending MD Statement: examined this patient, discuss w/resident/PA/FIRE INVESTIGATION MANAGER, agreed w/resident/PA/FIRE INVESTIGATION MANAGER, reviewed EMR data (avail), discussed with nursing Attending Assessment/Plan: Ms. Gallardo is a 52-year-old female with history of rheumatic heart disease, h/o TAVR, severe mitral stenosis significant interstitial lung disease with restrictive competent,(s) sleep apnea on CPAP, rheumatoid arthritis, proximal atrial fibrillation on Coumadin, previous stroke, hypertension dyslipidemia now presents with respiratory failure On examination - vital signs - systolic blood pressure 100/58, heart rate of 91, afebrile, respiratory to 22/m on 4 L of oxygen by nasal cannula Patient on oxygen supplementation 4 liters this am, continuing with IV lasix BID. ECHO shows normally functioning TAVR with mild rheumatic mitral stenosis, cardiology on board. Serial cardiac enzymes negative. Will monitor I/O, daily weights, Monitor INR. Initiate 2.5 mg of Coumadin today as INR will be therapeutic tomorrow and may be sub therapeutic the following day Hypokalemia will replace and monitor Will control her heart rate as aggressively. We'll switch from long-acting Toprol-XL her home medication to metoprolol 25 mg twice a day. Increase as tolerated target heart rate between 60 and 80 Continue with telemetry monitoring Will discontinue Aspirin 81 mg as she is already on Aggrenox As per cardiology once the acute episode is resolved might need functional assessment of her hemodynamics across mitral valve with Right heart catheterization - Cardiology following
[2018-02-20 08:58] LABS: ABSOLUTE BASOPHIL COUNT 0 /CUMM (0.0-0.2); ABSOLUTE EOSINOPHIL COUNT 0.3 /CUMM (0.0-0.7); ABSOLUTE GRANULOCYTE CT 5.8 /CUMM (1.4-6.5); ABSOLUTE MONOCYTE COUNT 0.7 /CUMM (0.10-0.60); BASOPHIL % 0.4 % (0.0-2.0); EOSINOPHIL % 4.2 % (0-5); HEMATOCRIT 25.4 % (37-47); MEAN CORPUSCULAR HGB 26.8 PG (27.0-31.0); MEAN CORPUSCULAR HGB CONC 31.7 G/DL (33.0-37.0); MEAN CORPUSCULAR VOLUME 84.5 FL (81.0-99.0); MEAN PLATELET VOLUME 7.8 FL (7.4-10.4); PLATELET COUNT 334 /CUMM (130-400); RBC DISTRIBUTION WIDTH 18.6 % (11.5-14.5); RED BLOOD CELL CT 3.01 /CUMM (4.20-5.40); WHITE BLOOD CELL COUNT 7.8 /CUMM (4.8-10.8)
[2018-02-20 09:08] LABS: PT 39.3 SEC (9.4-12.5)
--- NOTE | 2018-02-20 10:54 | PN- Cardiology ---
Subjective Subjective: The patient is awake, alert, states feeling mildly improved The events of the last 24 hours as well as telemetry were reviewed. Review of Systems: The review of systems is negative for chest pains, palpitations nor lightheadedness. The remainder of the 14 point review of systems is noncontributory with the exception of above. Objective Vital Signs and I&Os Vital Signs Date Time Temp Pulse Resp B/P B/P Pulse O2 O2 Flow FiO2 Mean Ox Delivery Rate 02/20 0929 97 Nasal 4.0L Cannula 02/20 0630 98.4 91 22 100/58 92 02/20 0000 Nasal 5.0L Cannula 02/20 0000 98.0 97 20 100/60 92 02/19 1854 102 114/76 02/19 1611 93 Nasal 5.0L Cannula 02/19 1432 98.9 102 24 110/70 93 Nasal 4.0L Cannula Intake & Output 02/20 1600 02/20 0800 02/20 0000 02/19 1600 02/19 0800 02/19 0000 Intake Total 200 400 Output Total 150 1000 900 600 Balance -150 -800 -500 -600 Intake, Oral 200 400 Output, Urine 150 1000 900 600 Patient 222 lb 226 lb Weight Weight Bed scale Measurement Method Physical Exam: General: Nontoxic, no apparent distress. HEENT: Sclera and conjunctiva within normal limits, without xanthelasmas. Neck: Carotids 2+ without bruits. Respiratory: Scattered rhonchi and wheezes, air movement is decreased throughout , without accessory respiratory muscle use. Heart: Regular rate and rhythm, 2 out of 6 stock ejection murmur at the left and right sternal borders, without JVD. Abdomen: Soft, nontender, no masses, normoactive bowel sounds. Extremities: Without clubbing, cyanosis, without edema. Neuro: Nonfocal exam, strength, 5 out of 5 Skin: Within normal limits without lesions. Psych: Mood and affect: Normal Current Medications: Current Medications Sig/Lico Start time Last Medication Dose Route Stop Time Status Admin Acetaminophen 650 MG Q6P PRN 02/17 1215 AC PO Albuterol Sulfate 3 ML TID 02/18 900 DC 02/19 INH 1400 Aspirin 81 MG DAILY 02/18 900 AC 02/20 PO 0854 Atorvastatin Calcium 10 MG QPM 02/17 2100 AC 02/19 PO 2224 Bupropion HCl 300 MG QAM 02/18 900 AC 02/20 PO 0853 Dipyridamole/Aspirin 1 CAP BID 02/17 2100 AC 02/20 PO 0854 Escitalopram Oxalate 40 MG AT BEDTIME 02/17 2100 AC 02/19 PO 2224 Furosemide 40 MG 7:30 AM, & 4:30 PM 02/18 0730 AC 02/20 IV 0853 Hydroxychloroquine 200 MG BID 02/17 2100 AC 02/20 Sulfate PO 0854 Ibuprofen 600 MG Q6P PRN 02/17 1215 AC PO Ipratropium [place] 2.5 ML TID 02/19 2100 AC 02/20 INH 0826 Lorazepam 1 MG BID 02/17 2100 AC 02/20 PO 0854 Metoprolol Succinate 25 MG QAM 02/19 1716 AC 02/20 PO 0853 Omeprazole 40 MG DAILY AC 02/17 153 AC 02/20 PO 0656 Oxycodone/ 1 TAB Q6P PRN 02/17 1215 AC Acetaminophen PO Potassium Chloride 40 MEQ Q4 02/19 1800 DC 02/19 PO 02/19 2201 222 Prednisone 5 MG DAILY 02/18 09 AC 02/20 PO 0853 Results Last 48 Hrs of Labs/Mics: Laboratory Tests 02/20/18 0720: Anion Gap 10, Estimated GFR 52 L, BUN/Creatinine Ratio 20.9, PT 39.3 H, INR 3.56 H, CBC w Diff NO MAN DIFF REQ, RBC 3.01 L, MCV 84.5, MCH 26.8 L, MCHC 31.7 L, RDW 18.6 H, MPV 7.8, Gran % 74.0, Lymphocytes % 12.6 L, Monocytes % 8.8, Eosinophils % 4.2, Basophils % 0.4, Absolute Granulocytes 5.8, Absolute Lymphocytes 1.0 L, Absolute Monocytes 0.7 H, Absolute Eosinophils 0.3, Absolute Basophils 0 02/19/18 0630: Anion Gap 10, Estimated GFR 52 L, BUN/Creatinine Ratio 17.3, PT 50.4 *H, INR 4.55 *H, CBC w Diff NO MAN DIFF REQ, RBC 3.07 L, MCV 84.2, MCH 26.8 L, MCHC 31.8 L, RDW 18.1 H, MPV 7.8, Gran % 79.3 H, Lymphocytes % 9.9 L, Monocytes % 8.8, Eosinophils % 1.8, Basophils % 0.2, Absolute Granulocytes 6.9 H, Absolute Lymphocytes 0.9 L, Absolute Monocytes 0.8 H, Absolute Eosinophils 0.2, Absolute Basophils 0 Assessment/Plan Assessment/Plan 1. Acute on chronic HFpEF. at the moment, the etiology of the patient's acute CHF is unclear. 2. History of aortic stenosis, status post transcatheter valve replacement 3. 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 Paroxysmal atrial fibrillation 5. History of hypertension 6. History of pulmonary disease 7. History of sleep apnea 8. Normocytic anemia Acute on chronic congestive heart failure with preserved LV systolic function: The patient presents with recurrence of acute heart failure. She has known severe mitral stenosis with a mean gradient of 12.7, as well as paroxysmal atrial fibrillation. The etiology of her acute congestive heart failure is likely secondary to either mitral stenosis alone or in combination with a paroxysm of arrhythmia such as atrial fibrillation causing the acute decompensation. Given her severe mitral stenosis, we should attempt to more adequately control her heart rate. Weight tracking has been suboptimal; however, by in hospital records, she may have gained approximately 20 pounds over the past several months. We will continue diuresis, targeting a net output of approximately 1 L per day until symptomatically improved. Further consideration for a right and left heart catheterization to better evaluate her mitral valve and consideration for either balloon valvuloplasty or surgical replacement may be given following improvement. We will continue to monitor on telemetry, and consider an application of an outpatient mobile continuous telemetry to exclude paroxysms of atrial fibrillation and the etiology of her underlying congestive heart failure. Further follow-up of the patient's interstitial lung disease will be guided as per pulmonary. Continue telemetry? Yes
--- NOTE | 2018-02-20 12:00 | PN- Pulmonary ---
Subjective HPI/Critical Care Issues: The patient is awake, alert, states feeling mildly improved The events of the last 24 hours as well as telemetry were reviewed. Review of Systems: The review of systems is negative for chest pains, palpitations nor lightheadedness. The remainder of the 14 point review of systems is noncontributory with the exception of above. Objective Current Medications: Current Medications Sig/Lico Start time Last Medication Dose Route Stop Time Status Admin Acetaminophen 650 MG Q6P PRN 02/17 121 AC PO Albuterol Sulfate 3 ML TID 02/18 900 DC 02/19 INH 1400 Aspirin 81 MG DAILY 02/18 900 AC 02/20 PO 0854 Atorvastatin Calcium 10 MG QPM 02/17 2100 AC 02/19 PO 2224 Bupropion HCl 300 MG QAM 02/18 900 AC 02/20 PO 0853 Dipyridamole/Aspirin 1 CAP BID 02/17 2100 AC 02/20 PO 0854 Escitalopram Oxalate 40 MG AT BEDTIME 02/17 2100 AC 02/19 PO 2224 Furosemide 40 MG 7:30 AM, & 4:30 PM 02/18 0730 AC 02/20 IV 0853 Hydroxychloroquine 200 MG BID 02/17 2100 AC 02/20 Sulfate PO 0854 Ibuprofen 600 MG Q6P PRN 02/17 1215 AC PO Ipratropium [place] 2.5 ML TID 02/19 2100 AC 02/20 INH 0826 Lorazepam 1 MG BID 02/17 2100 AC 02/20 PO 0854 Metoprolol Succinate 25 MG QAM 02/19 1716 AC 02/20 PO 0853 Omeprazole 40 MG DAILY AC 02/17 1535 AC 02/20 PO 0656 Oxycodone/ 1 TAB Q6P PRN 02/17 121 AC Acetaminophen PO Potassium Chloride 40 MEQ Q4 02/19 1800 DC 02/19 PO 02/19 2201 2224 Prednisone 5 MG DAILY 02/18 09 AC 02/20 PO 0853 Vital Signs & I&O Last 24 Hrs of Vitals and I&O: Vital Signs Date Time Temp Pulse Resp B/P B/P Pulse O2 O2 Flow FiO2 Mean Ox Delivery Rate 02/20 0929 97 Nasal 4.0L Cannula 02/20 0800 97 Nasal 4.0L Cannula 02/20 0630 98.4 91 22 100/58 92 02/20 0000 Nasal 5.0L Cannula 02/20 0000 98.0 97 20 100/60 92 02/19 1854 102 114/76 02/19 1611 93 Nasal 5.0L Cannula 02/19 1432 98.9 102 24 110/70 93 Nasal 4.0L Cannula Intake & Output 02/20 1600 02/20 0800 02/20 0000 Intake Total 200 Output Total 109 357 1513 Balance -900 -150 -800 Intake, Oral 200 Output, Urine 832 296 [id number] Patient 222 lb Weight Impression/Plan Impression/Plan Impression/Plan: General: Nontoxic, no apparent distress. HEENT: Sclera and conjunctiva within normal limits, without xanthelasmas. Neck: Carotids 2+ without bruits. Respiratory: Diffuse rales at both lower to mid lung verduzco, air movement is reduced, without accessory respiratory muscle use. Heart: Regular rate and rhythm, 2 out of 6 systolic ejection murmur at left sternal border, without JVD. Abdomen: Soft, nontender, no masses, normoactive bowel sounds. Extremities: Without clubbing, cyanosis, Neuro: Nonfocal exam, strength, 5 out of 5 Skin: Within normal limits without lesions. 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 SHe has on and off tachycardia with her paroxysmal atrial fibrillation now on maximum medical therapy. Patient has had fluid overload with weight gain while in the hospital and aggressive attempts at diuresis is ongoing * Severe interstitial lung disease by review of CT scan, patient has had a lung biopsy and report reviewed and it showed ORGANIZING PNA WITH DIFFUSE LUNG DAMAGE. (Pt was on amiodarone at that time and this was stopped and did not receive steroids at that time as she had sig ongoing infection etc. * No clinical superimposed infection. Patient was only on 5 mg of prednisone at home. * Previous hilar and mediastinal lymphadenopathy probably related to heart failure which seems to be much reduced in the prior CTs. This needs serial follow-up. No clinical evidence suggestive of lymphoproliferative disease or other primary lung malignancy. * History of rheumatic fever with severe mitral valve disease, previous aortic valve replacement with endocarditis. Cultures have been negative so far * Obstructive sleep apnea compliant on CPAP with secondary pulmonary hypertension related to mitral stenosis and valvular heart disease and severe ASA with morbid obesity compounding the issue. Patient is compliant with her CPAP this needs to be continued * Fibromyalgia, chronic anemia which needs to be investigated further. Patient is on anticoagulation. * Mild chronic kidney disease as well RECOMMENDATION * Continue attempts to aggressively diurese * Continue current medications * Patient's heart rate may need to be reduced as noted by cardiology note. 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 Please note patient does not have COPD We'll follow closely
[2018-02-20 15:02] VITALS: BP 96/72
[2018-02-20 21:17] VITALS: BP 126/62
[2018-02-21 06:26] VITALS: BP 112/70
[2018-02-21 08:30] LABS: ABSOLUTE BASOPHIL COUNT 0.1 /CUMM (0.0-0.2); ABSOLUTE EOSINOPHIL COUNT 0.4 /CUMM (0.0-0.7); ABSOLUTE GRANULOCYTE CT 6.5 /CUMM (1.4-6.5); ABSOLUTE LYMPH COUNT 1.1 /CUMM (1.2-3.4); ABSOLUTE MONOCYTE COUNT 0.7 /CUMM (0.10-0.60); BASOPHIL % 0.6 % (0.0-2.0); EOSINOPHIL % 4.3 % (0-5); GRANULOCYTE % 74.6 % (42.2-75.2); HEMATOCRIT 25.7 % (37-47); MEAN CORPUSCULAR HGB 26.7 PG (27.0-31.0); MEAN CORPUSCULAR HGB CONC 31.9 G/DL (33.0-37.0); MEAN CORPUSCULAR VOLUME 83.8 FL (81.0-99.0); MEAN PLATELET VOLUME 7.7 FL (7.4-10.4); PLATELET COUNT 372 /CUMM (130-400); RBC DISTRIBUTION WIDTH 18.3 % (11.5-14.5); RED BLOOD CELL CT 3.06 /CUMM (4.20-5.40); WHITE BLOOD CELL COUNT 8.8 /CUMM (4.8-10.8)
--- NOTE | 2018-02-21 08:41 | PN- Pulmonary ---
Subjective HPI/Critical Care Issues: Patient is diuresed approximately 3 L and shortness of breath is markedly improved. Objective Current Medications: Current Medications Sig/Lico Start time Last Medication Dose Route Stop Time Status Admin Acetaminophen 650 MG Q6P PRN 02/17 1215 AC PO Aspirin 81 MG DAILY 02/18 09 DC 02/20 PO 0854 Atorvastatin Calcium 10 MG QPM 02/17 2100 AC 02/20 PO 202 Bupropion HCl 300 MG QAM 02/18 09 AC 02/21 PO 0803 Dipyridamole/Aspirin 1 CAP BID 02/17 2100 AC 02/21 PO 0802 Escitalopram Oxalate 40 MG AT BEDTIME 02/17 2100 AC 02/20 PO 202 Furosemide 40 MG 7:30 AM, & 4:30 PM 02/18 0730 AC 02/21 IV 0801 Hydroxychloroquine 200 MG BID 02/17 2100 AC 02/21 Sulfate PO 0803 Ibuprofen 600 MG Q6P PRN 02/17 1215 AC PO Ipratropium [place] 2.5 ML TID 02/19 2100 AC 02/21 INH 0813 Lorazepam 1 MG BID 02/17 2100 AC 02/21 PO 0802 Metoprolol Succinate 25 MG QAM 02/19 1716 DC 02/20 PO 0853 Metoprolol Tartrate 25 MG BID 02/20 2100 AC 02/21 PO 0803 Omeprazole 40 MG DAILY AC 02/17 1535 AC 02/21 PO 0624 Oxycodone/ 1 TAB Q6P PRN 02/17 1215 AC Acetaminophen PO Prednisone 5 MG DAILY 02/18 09 AC 02/21 PO 0803 Warfarin Sodium 2.5 MG COUMADIN 1700 ONE 02/20 1700 DC 02/20 PO 02/20 1701 1654 Vital Signs & I&O Last 24 Hrs of Vitals and I&O: Vital Signs Date Time Temp Pulse Resp B/P B/P Pulse O2 O2 Flow FiO2 Mean Ox Delivery Rate 02/21 08 94 Nasal 4.0L Cannula 02/21 08 80 112/70 02/21 06 98.3 80 24 112/70 96 Nasal 4.0L Cannula 02/20 2117 98.2 92 24 126/62 93 Nasal 4.0L Cannula 02/20 2100 Nasal 4.0L Cannula 02/20 2021 97 102/62 02/20 1909 95 Nasal 4.0L Cannula 02/20 1502 98.7 88 22 96/72 94 Nasal 4.0L Cannula 02/20 0929 97 Nasal 4.0L Cannula Intake & Output 02/21 1600 02/21 0800 02/21 0000 Intake Total Output Total Balance Patient 222 lb Weight Weight Bed scale Measurement Method Oxygen saturation 4 L 94% exam for chest shows crackles there are no wheezes cardiac exam shows a irregular S1 and S2 with systolic ejection murmur there is no edema Impression/Plan Impression/Plan Impression/Plan: 52-year-old with chronic interstitial lung disease minute with increasing shortness of breath. Thought secondary to superimposed congestive heart failure in the setting of mitral valve disease. She is diuresed 3 L and feels significantly improved. Recommendations: Assess sedimentation rate. Closely monitor renal function with rising creatinine and setting of diuresis. Taper FiO2 his saturations allow. Cardiology follow-up for rate control
--- NOTE | 2018-02-21 08:48 | PN- Housestaff ---
Vince CROOKS,[facility] 02/21/18 0848: Subjective Follow-up For: Shortness of breath Tele-Events Since Last Visit: No arrhythmia noted on telemonitor. Subjective: Saw pt at bedside this AM. Review of Systems Constitutional: Reports: weakness. Denies: chills, fever. EENTM: Reports: no symptoms. Cardiovascular: Denies: chest pain, palpitations. Respiratory: Reports: orthopnea, short of breath. Denies: cough, wheezing. Gastrointestinal: Reports: bloating. Genitourinary: Reports: frequency. Musculoskeletal: Reports: no symptoms. Skin: Reports: no symptoms. Objective Last 24 Hrs of Vital Signs/I&O Vital Signs Date Time Temp Pulse Resp B/P B/P Pulse O2 O2 Flow FiO2 Mean Ox Delivery Rate 02/21 0826 94 Nasal 4.0L Cannula 02/21 0803 80 112/70 02/21 0800 96 Nasal 4.0L Cannula 02/21 0626 98.3 80 24 112/70 96 Nasal 4.0L Cannula 02/20 2117 98.2 92 24 126/62 93 Nasal 4.0L Cannula 02/20 2100 Nasal 4.0L Cannula 02/20 2021 97 102/62 02/20 1909 95 Nasal 4.0L Cannula 02/20 1502 98.7 88 22 96/72 94 Nasal 4.0L Cannula Intake & Output 02/21 1600 02/21 0800 02/21 0000 Intake Total Output Total Balance Patient 100.839 kg Weight Weight Bed scale Measurement Method Physical Exam General Appearance: Alert, Oriented X3, Cooperative, No Acute Distress Skin: some fading bruising on r. forearm and bilat le. HEENT: Atraumatic, PERRLA, EOMI, Mucous Membr. moist/pink Neck: Supple, No JVD Cardiovascular: Regular Rate, Normal S1, Normal S2, No Murmurs Lungs: diffuse crackles all through lung bases. no wheezing or rhonchi. Abdomen: Soft, No Tenderness Extremities: No Edema, No Tenderness/Swelling Current Medications: Current Medications Sig/Lico Start time Last Medication Dose Route Stop Time Status Admin Acetaminophen 650 MG Q6P PRN 02/17 1215 AC PO Aspirin 81 MG DAILY 02/18 0900 DC 02/20 PO 0854 Atorvastatin Calcium 10 MG QPM 02/17 2100 AC 02/20 PO 2021 Bupropion HCl 300 MG QAM 02/18 0900 AC 02/21 PO 0803 Dipyridamole/Aspirin 1 CAP BID 02/17 2100 AC 02/21 PO 08 Escitalopram Oxalate 40 MG AT BEDTIME 02/17 2100 AC 02/20 PO 2020 Furosemide 40 MG 7:30 AM, & 4:30 PM 02/18 0730 AC 02/21 IV 0801 Hydroxychloroquine 200 MG BID 02/17 2100 AC 02/21 Sulfate PO 0803 Ibuprofen 600 MG Q6P PRN 02/17 1215 AC PO Ipratropium [place] 2.5 ML TID 02/19 2100 AC 02/21 INH 0813 Lorazepam 1 MG BID 02/17 2100 AC 02/21 PO 0802 Metoprolol Succinate 25 MG QAM 02/19 1716 DC 02/20 PO 0853 Metoprolol Tartrate 25 MG BID 02/20 2100 AC 02/21 PO 0803 Omeprazole 40 MG DAILY AC 02/17 1535 AC 02/21 PO 0624 Oxycodone/ 1 TAB Q6P PRN 02/17 121 AC Acetaminophen PO Prednisone 5 MG DAILY 02/18 0900 AC 02/21 PO 0803 Warfarin Sodium 2.5 MG COUMADIN 1700 ONE 02/20 1700 DC 02/20 PO 02/20 1701 1654 Last 24 Hrs of Lab/Michael Results Last 24 Hrs of Labs/Mics: Laboratory Tests 02/21/18 0640: Anion Gap 12, Estimated GFR 47 L, BUN/Creatinine Ratio 21.7, PT 33.0 H, INR 2.99 H, CBC w Diff NO MAN DIFF REQ, RBC 3.06 L, MCV 83.8, MCH 26.7 L, MCHC 31.9 L, RDW 18.3 H, MPV 7.7, Gran % 74.6, Lymphocytes % 13.1 L, Monocytes % 7.4, Eosinophils % 4.3, Basophils % 0.6, Absolute Granulocytes 6.5, Absolute Lymphocytes 1.1 L, Absolute Monocytes 0.7 H, Absolute Eosinophils 0.4, Absolute Basophils 0.1 Assessment/Plan Assessment: This is a 51-year-old lady with a PMH of heart failure with preserved ejection fraction,on 3 L O2 at home, ASA on CPAP, fibromyalgia, sero-negative rheumatoid arthritis on chronic prednisone and hydroxychloroquine, recurrent calcium oxalate stones s/p lithotripsy, paroxysmal atrial fibrillation on Coumadin, 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 Chest x-ray shows extensive pulmonary edema. Given the BNP and x-ray with significant edema , possible etiology for this patient's presentation is valvular heart failure, though other etiologies such as CAD with new systolic HF or infection cannot be ruled out. Notably, pt has been aggressively diuresed with some imporvement but not nearly as expected. Her Echo does not indicate particularly stenotic Mitral valve . PLAN: Acute hypoxic respiratory failure:MR didn't seem impressive during this admission. Unsure of etiology of her acute hypoxic respiratory failure. Strep swab/Legionella swab negative.She does have hx of [employer] 2/2 amiodarone some of the fine crackles auscultated could be secondary to ILD vs edema. * TRC/O2 as necessary * Sputum culture/bcx * Holding off abx * Would consider pro-juan antonio in this patient if she doesnt improve after diuresis * I/O * Plan is to continue IV lasix 40 BID * Appreciate cardio consult * Appreciate pulm consult Afib with elevated INR:INR 2.99 today. * Will dose Coumadin accordingly * Follow up tomorrow Heart failure with preserved ejection fraction: BNP 1230. * Appreciate Cardio consult CVA: * Con't ASA * Con't Aggrenox Hypertension: * Con't monitor Anxiety and depression: * Con't Bupropion * Con't Lexapro RA and fibromyalgia: * Con't Hydroxychloroquine * Con't Prednisone 5mg Anemia: Con't monitor. * Monitor CBC fc Problem List: 1. Shortness of breath 2. 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 Patient clinically has improved with crackles better than admission. However oxygen requiremments remains same. Pulmonary and cardiology following patient. Continue with iv laisx for now 40 mg daily and prednison 5 mg home dose. Follow up on previous records. Achieve rate control and negative balance. Monitor creatinine. gi/dvt prophyalxis full code. Plan of care d.wed patient/family bedside.
--- NOTE | 2018-02-21 12:31 | RADIOLOGY REPORT ---
EXAMINATION: XR PORTABLE CHEST CLINICAL INFORMATION: Shortness of breath, not improving with diuresis. Rule out pneumonia versus pulmonary edema versus parenchymal disease. COMPARISON: Several prior chest x-rays, most recent of which is dated 02/18/2018. TECHNIQUE: Portable AP semierect view of the chest was obtained. FINDINGS: EKG lead is overlying the chest. The cardiomediastinal silhouette is mildly enlarged. Low lung volumes are seen with central vascular indistinctness and diffusely increased reticular opacities, suspicious for pulmonary edema. The previously seen right-sided pleural effusion is no longer visualized. There is some linear subsegmental atelectatic change at the lung bases bilaterally. No pneumothorax. Bony structures are unremarkable. IMPRESSION: Findings are consistent with improving pulmonary edema.
[2018-02-21 14:37] VITALS: BP 90/64
[2018-02-21 16:46] VITALS: BP 102/64
--- NOTE | 2018-02-21 17:31 | PN- Cardiology ---
Subjective Subjective: Shortness of breath improving. No chest pain. No palpitations. No diaphoresis. Objective Vital Signs and I&Os Vital Signs Date Time Temp Pulse Resp B/P B/P Pulse O2 O2 Flow FiO2 Mean Ox Delivery Rate 02/21 1646 75 102/64 02/21 1600 96 Nasal 4.0L Cannula 02/21 1437 98.2 78 20 90/64 96 Nasal 4.0L Cannula 02/21 0826 94 Nasal 4.0L Cannula 02/21 0803 80 112/70 02/21 0800 96 Nasal 4.0L Cannula 02/21 0626 98.3 80 24 112/70 96 Nasal 4.0L Cannula 02/20 2117 98.2 92 24 126/62 93 Nasal 4.0L Cannula 02/20 2100 Nasal 4.0L Cannula 02/20 202 97 102/62 02/20 1909 95 Nasal 4.0L Cannula Intake & Output 02/21 1600 02/21 0800 02/21 0000 02/20 1600 02/20 0800 02/20 0000 Intake Total 600 410 200 Output Total 750 5961 054 0268 Balance -150 -740 -150 -800 Intake, IV 10 Intake, Oral 600 400 200 Output, Urine 750 7715 326 3399 Patient 222 lb 222 lb Weight Weight Bed scale Measurement Method Physical Exam: General: Nontoxic, no apparent distress. HEENT: Sclera and conjunctiva within normal limits, without xanthelasmas. Neck: Carotids 2+ without bruits. Respiratory: Scattered rhonchi and wheezes, air movement is decreased throughout , without accessory respiratory muscle use. Heart: Regular rate and rhythm, 2 out of 6 stock ejection murmur at the left and right sternal borders, without JVD. Abdomen: Soft, nontender, no masses, normoactive bowel sounds. Extremities: Without clubbing, cyanosis, without edema. Neuro: Nonfocal exam, strength, 5 out of 5 Current Medications: Current Medications Sig/Lico Start time Last Medication Dose Route Stop Time Status Admin Acetaminophen 650 MG Q6P PRN 02/17 1215 AC PO Atorvastatin Calcium 10 MG QPM 02/17 2100 AC 02/20 PO 2020 Bupropion HCl 300 MG QAM 02/18 0900 AC 02/21 PO 08 Dipyridamole/Aspirin 1 CAP BID 02/17 2100 AC 02/21 PO 08 Escitalopram Oxalate 40 MG AT BEDTIME 02/17 2100 AC 02/20 PO 2020 Furosemide 40 MG 7:30 AM, & 4:30 PM 02/18 0730 AC 02/21 IV 1648 Hydroxychloroquine 200 MG BID 02/17 2100 AC 02/21 Sulfate PO 08 Ibuprofen 600 MG Q6P PRN 02/17 1215 AC PO Ipratropium [place] 2.5 ML TID 02/19 INH 1341 Lorazepam 1 MG BID 02/17 2100 AC 02/21 PO 0802 Metoprolol Tartrate 25 MG BID 02/20 2100 AC 02/21 PO 0803 Omeprazole 40 MG DAILY AC 02/17 1535 AC 02/21 PO 0624 Oxycodone/ 1 TAB Q6P PRN 02/17 121 AC Acetaminophen PO Prednisone 5 MG DAILY 02/18 0900 AC 02/21 PO 0803 Warfarin Sodium 2.5 MG COUMADIN 1700 02/21 1700 AC 02/21 PO 02/21 9499 1648 Results Last 48 Hrs of Labs/Mics: Laboratory Tests 02/21/18 0640: Anion Gap 12, Estimated GFR 47 L, BUN/Creatinine Ratio 21.7, PT 33.0 H, INR 2.99 H, CBC w Diff NO MAN DIFF REQ, RBC 3.06 L, MCV 83.8, MCH 26.7 L, MCHC 31.9 L, RDW 18.3 H, MPV 7.7, Gran % 74.6, Lymphocytes % 13.1 L, Monocytes % 7.4, Eosinophils % 4.3, Basophils % 0.6, Absolute Granulocytes 6.5, Absolute Lymphocytes 1.1 L, Absolute Monocytes 0.7 H, Absolute Eosinophils 0.4, Absolute Basophils 0.1 02/20/18 0720: Anion Gap 10, Estimated GFR 52 L, BUN/Creatinine Ratio 20.9, PT 39.3 H, INR 3.56 H, CBC w Diff NO MAN DIFF REQ, RBC 3.01 L, MCV 84.5, MCH 26.8 L, MCHC 31.7 L, RDW 18.6 H, MPV 7.8, Gran % 74.0, Lymphocytes % 12.6 L, Monocytes % 8.8, Eosinophils % 4.2, Basophils % 0.4, Absolute Granulocytes 5.8, Absolute Lymphocytes 1.0 L, Absolute Monocytes 0.7 H, Absolute Eosinophils 0.3, Absolute Basophils 0 Assessment/Plan Assessment/Plan 1. Acute on chronic HFpEF. 2. History of aortic stenosis, status post transcatheter valve replacement 3. 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 Paroxysmal atrial fibrillation 5. History of hypertension 6. History of pulmonary disease 7. History of sleep apnea 8. Normocytic anemia Plan: * Continue IV Lasix * Continue other cardiac medications * Check basic metabolic profile daily * Dose warfarin for INR 2-3 Continue telemetry? Yes
[2018-02-21 23:18] VITALS: BP 98/60
[2018-02-22 06:42] VITALS: BP 102/68
--- NOTE | 2018-02-22 07:05 | PN- Housestaff ---
Vince CROOKS,Goran 02/22/18 0705: Subjective Follow-up For: Shortness of breath Subjective: Saw pt at bedside this AM. She states she feels better today than yesterday. She is still on 4 L O2 which is above her 3L baseline. She slept well and had no overnight events or complaints. Plan is to see if we can wean her O2 back to her baseline and then possibly discharge on oral lasix, pending cardio and pulm recs. Review of Systems Constitutional: Reports: no symptoms. EENTM: Reports: no symptoms. Cardiovascular: Denies: chest pain, palpitations, peripheral edema. Respiratory: Reports: cough, short of breath. Denies: sputum production, stridor, wheezing. Gastrointestinal: Reports: no symptoms. Genitourinary: Reports: no symptoms. Musculoskeletal: Reports: no symptoms. Objective Last 24 Hrs of Vital Signs/I&O Vital Signs Date Time Temp Pulse Resp B/P B/P Pulse O2 O2 Flow FiO2 Mean Ox Delivery Rate 02/22 0642 98.4 75 20 102/68 93 Nasal 4.0L Cannula 02/21 2318 98.5 74 22 98/60 94 Nasal Cannula 02/21 2014 Nasal 4.0L Cannula 02/21 1943 94 Nasal 3.0L Cannula 02/21 1646 75 102/64 02/21 1600 96 Nasal 4.0L Cannula 02/21 1437 98.2 78 20 90/64 96 Nasal 4.0L Cannula 02/21 0826 94 Nasal 4.0L Cannula Intake & Output 02/22 1600 02/22 0800 02/22 0000 Intake Total 560 Output Total 400 700 Balance -400 -140 Intake, Oral 560 Output, Urine 400 700 Patient 100.698 kg Weight Physical Exam General Appearance: Alert, Oriented X3, Cooperative Skin: No Significant Lesion HEENT: Atraumatic, PERRLA, EOMI Neck: Supple Cardiovascular: Regular Rate, has a systolic murmur at LUSB 2/6 Lungs: diffuse fine crackles in bilat lung bases. No wheezing or rhonchi Abdomen: Soft, No Tenderness Current Medications: Current Medications Sig/Lico Start time Last Medication Dose Route Stop Time Status Admin Acetaminophen 650 MG Q6P PRN 02/17 1215 AC PO Atorvastatin Calcium 10 MG QPM 02/17 2100 AC 02/21 PO 2000 Bupropion HCl 300 MG QAM 02/18 0900 AC 02/21 PO 0803 Dipyridamole/Aspirin 1 CAP BID 02/17 2100 AC 02/21 PO 1999 Escitalopram Oxalate 40 MG AT BEDTIME 02/17 2100 AC 02/21 PO 1999 Furosemide 40 MG 7:30 AM, & 4:30 PM 02/18 0730 AC 02/21 IV 1648 Hydroxychloroquine 200 MG BID 02/17 2100 AC 02/21 Sulfate PO 1999 Ibuprofen 600 MG Q6P PRN 02/17 1215 AC PO Ipratropium [place] 2.5 ML TID 02/19 2100 AC 02/21 INH 1942 Lorazepam 1 MG BID 02/17 2100 AC 02/21 PO 1999 Metoprolol Tartrate 25 MG BID 02/20 2100 AC 02/21 PO 2006 Omeprazole 40 MG DAILY AC 02/17 1535 AC 02/22 PO 0604 Oxycodone/ 1 TAB Q6P PRN 02/17 1215 AC Acetaminophen PO Prednisone 5 MG DAILY 02/18 0900 AC 02/21 PO 0803 Warfarin Sodium 2.5 MG COUMADIN 1700 02/21 1700 DC 02/21 PO 02/21 2359 1648 Last 24 Hrs of Lab/Michael Results Last 24 Hrs of Labs/Mics: Laboratory Tests 02/22/18 0615: Anion Gap 13, Estimated GFR 43 L, BUN/Creatinine Ratio 21.5, PT Pending, INR Pending, CBC w Diff Pending, WBC Pending, RBC Pending, Hgb Pending, Hct Pending, MCV Pending, MCH Pending, MCHC Pending, RDW Pending, Plt Count Pending, MPV Pending Assessment/Plan Assessment: Assessment: This is a 51-year-old lady with a PMH of heart failure with preserved ejection fraction,on 3 L O2 at home, ASA on CPAP, fibromyalgia, sero-negative rheumatoid arthritis on chronic prednisone and hydroxychloroquine, recurrent calcium oxalate stones s/p lithotripsy, paroxysmal atrial fibrillation on Coumadin, CVA in 2011 secondary to embolization, hypertension, aortic stenosis status post TAVR at [facility] in 2016, with 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 Given elevated BNP and x-ray with significant edema, we are treating pt for valvular heart failure. Notably, pt has been aggressively diuresed with some imporvement but not nearly as expected. Her Echo does not indicate particularly stenotic Mitral valve. Likely,her hx of ILD is playing some role in her hypoxia in addition to her heart failure. PLAN: Acute hypoxic respiratory failure:MR didn't seem impressive during this admission. Unsure of etiology of her acute hypoxic respiratory failure. No evidence of new CAD, BCX negative. Strep swab/Legionella swab negative. 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 Her diuresis has been exceptional with average over 1 L of diuresis each day in hospital. * TRC/O2 as necessary * Holding off abx * I/O * IV lasix 40 BID--> Switch to PO Lasix * Appreciate cardio consult * Appreciate pulm consult Afib with elevated INR * Will dose Coumadin accordingly w/ goal 2-3. Heart failure with preserved ejection fraction: BNP 1230 initially. Possible outpt cardiac catheterization. * Appreciate Cardio consult CVA: * Con't ASA * Con't Aggrenox Hypertension: * Con't monitor Anxiety and depression: * Con't Bupropion * Con't Lexapro RA and fibromyalgia: * Con't Hydroxychloroquine * Con't Prednisone 5mg Anemia: Con't monitor. * Monitor CBC Problem List: 1. Shortness of breath 2. Elevated INR 3. CHF exacerbation 4. Hypoxia Pain Ratin Pain Goal: Remain pain free Pain Plan: current reg Tomorrow's Labs & Rationales: cbc bep inr DemiGerald estrada 02/22/18 1209: Attending MD Review Statement Attending Statement Attending MD Statement: examined this patient, discuss w/resident/PA/MANAGER FIRE, agreed w/resident/PA/MANAGER FIRE, discussed with family, reviewed EMR data (avail), discussed with nursing, discussed with case mgmt, reviewed images, amended to note Attending Assessment/Plan: Patient with overall clinical improvement. On iv lasix today as per cardiology recs. Titrate oxygen slowly to baseline. She feels better than admission. Continue current care..
[2018-02-22 08:00] LABS: ABSOLUTE BASOPHIL COUNT 0.1 /CUMM (0.0-0.2); ABSOLUTE EOSINOPHIL COUNT 0.3 /CUMM (0.0-0.7); ABSOLUTE GRANULOCYTE CT 4.1 /CUMM (1.4-6.5); ABSOLUTE LYMPH COUNT 1.4 /CUMM (1.2-3.4); ABSOLUTE MONOCYTE COUNT 0.6 /CUMM (0.10-0.60); BASOPHIL % 0.8 % (0.0-2.0); EOSINOPHIL % 4.1 % (0-5); GRANULOCYTE % 64.3 % (42.2-75.2); HEMATOCRIT 26.6 % (37-47); MEAN CORPUSCULAR HGB 27.3 PG (27.0-31.0); MEAN CORPUSCULAR HGB CONC 32.4 G/DL (33.0-37.0); MEAN CORPUSCULAR VOLUME 84.1 FL (81.0-99.0); MEAN PLATELET VOLUME 7.7 FL (7.4-10.4); PLATELET COUNT 415 /CUMM (130-400); RBC DISTRIBUTION WIDTH 17.8 % (11.5-14.5); RED BLOOD CELL CT 3.16 /CUMM (4.20-5.40); WHITE BLOOD CELL COUNT 6.4 /CUMM (4.8-10.8)
--- NOTE | 2018-02-22 08:32 | PN- Pulmonary ---
Subjective HPI/Critical Care Issues: Shortness of breath is markedly improved. Chest x-ray shows improving congestive heart failure Objective Current Medications: Current Medications Sig/Lico Start time Last Medication Dose Route Stop Time Status Admin Acetaminophen 650 MG Q6P PRN 02/17 121 AC PO Atorvastatin Calcium 10 MG QPM 02/17 2100 AC 02/21 PO 1999 Bupropion HCl 300 MG QAM 02/18 09 AC 02/21 PO 0803 Dipyridamole/Aspirin 1 CAP BID 02/17 2100 AC 02/21 PO 1999 Escitalopram Oxalate 40 MG AT BEDTIME 02/17 2100 AC 02/21 PO 1999 Furosemide 40 MG 7:30 AM, & 4:30 PM 02/18 0730 AC 02/21 IV 1648 Hydroxychloroquine 200 MG BID 02/17 2100 AC 02/21 Sulfate PO 1999 Ibuprofen 600 MG Q6P PRN 02/17 1215 AC PO Ipratropium [place] 2.5 ML TID 02/19 2100 AC 02/22 INH 0824 Lorazepam 1 MG BID 02/17 2100 AC 02/21 PO 1999 Metoprolol Tartrate 25 MG BID 02/20 2100 AC 02/21 PO 2007 Omeprazole 40 MG DAILY AC 02/17 1535 AC 02/22 PO 0604 Oxycodone/ 1 TAB Q6P PRN 02/17 121 AC Acetaminophen PO Prednisone 5 MG DAILY 02/18 09 AC 02/21 PO 0803 Warfarin Sodium 2.5 MG COUMADIN 1700 02/21 1700 DC 02/21 PO 02/21 2359 1648 Vital Signs & I&O Last 24 Hrs of Vitals and I&O: Vital Signs Date Time Temp Pulse Resp B/P B/P Pulse O2 O2 Flow FiO2 Mean Ox Delivery Rate 02/22 0642 98.4 75 20 102/68 93 Nasal 4.0L Cannula 02/21 2318 98.5 74 22 98/60 94 Nasal Cannula 02/21 2014 Nasal 4.0L Cannula 02/21 1943 94 Nasal 3.0L Cannula 02/21 1646 75 102/64 02/21 1600 96 Nasal 4.0L Cannula 02/21 1437 98.2 78 20 90/64 96 Nasal 4.0L Cannula Intake & Output 02/22 1600 02/22 0800 02/22 0000 Intake Total 560 Output Total 400 700 Balance -400 -140 Intake, Oral 560 Output, Urine 400 700 Patient 222 lb Weight Since saturation 4 L 93% exam for chest shows occasional crackles there are no wheezes heard cardiac exam shows regular S1 and S2 Impression/Plan Impression/Plan Impression/Plan: 52-year-old with underlying pulmonary disease admitted with increasing shortness of breath due to congestive heart failure which is improved with diuresis. There is evidence of worsening renal function Recommendations: Closely monitor renal function with rising creatinine and setting of diuresis. Taper FiO2 his saturations allow. Cardiology follow-up for rate control no further pulmonary suggestions at this time patient should follow-up with Dr. Morel as an outpatient
[2018-02-22 08:38] LABS: PT 30.7 SEC (9.4-12.5)
--- NOTE | 2018-02-22 10:42 | PN- Cardiology ---
Subjective Subjective: Shortness of breath is somewhat better. No chest pain. No palpitations. No diaphoresis Objective Vital Signs and I&Os Vital Signs Date Time Temp Pulse Resp B/P B/P Pulse O2 O2 Flow FiO2 Mean Ox Delivery Rate 02/22 0846 75 102/68 02/22 0828 95 Nasal 4.0L Cannula 02/22 0800 Nasal 4.0L Cannula 02/22 0642 98.4 75 20 102/68 93 Nasal 4.0L Cannula 02/21 2318 98.5 74 22 98/60 94 Nasal Cannula 02/21 2014 Nasal 4.0L Cannula 02/21 1943 94 Nasal 3.0L Cannula 02/21 1646 75 102/64 02/21 1600 96 Nasal 4.0L Cannula 02/21 1437 98.2 78 20 90/64 96 Nasal 4.0L Cannula Intake & Output 02/22 1600 02/22 0800 02/22 0000 02/21 1600 02/21 0800 02/21 0000 Intake Total 560 600 Output Total 400 700 750 Balance -400 -140 -150 Intake, Oral 560 600 Output, Urine 400 700 750 Patient 222 lb 222 lb Weight Weight Bed scale Measurement Method Physical Exam: General: Nontoxic, no apparent distress. HEENT: Sclera and conjunctiva within normal limits, without xanthelasmas. Neck: Carotids 2+ without bruits. Respiratory: Scattered rhonchi and wheezes, air movement is decreased throughout , without accessory respiratory muscle use. Heart: Regular rate and rhythm, 2 out of 6 stock ejection murmur at the left and right sternal borders, without JVD. Abdomen: Soft, nontender, no masses, normoactive bowel sounds. Extremities: Without clubbing, cyanosis, without edema. Neuro: Nonfocal exam, strength, 5 out of 5 Current Medications: Current Medications Sig/Lico Start time Last Medication Dose Route Stop Time Status Admin Acetaminophen 650 MG Q6P PRN 02/17 1215 AC PO Atorvastatin Calcium 10 MG QPM 02/17 2100 AC 02/21 PO 1999 Bupropion HCl 300 MG QAM 02/18 0900 AC 02/22 PO 45 Dipyridamole/Aspirin 1 CAP BID 02/17 2100 AC 02/22 PO 45 Escitalopram Oxalate 40 MG AT BEDTIME 02/17 2100 AC 02/21 PO 1999 Furosemide 40 MG 7:30 AM, & 4:30 PM 02/18 0730 AC 02/22 IV 0848 Hydroxychloroquine 200 MG BID 02/17 2100 AC 02/22 Sulfate PO 0845 Ibuprofen 600 MG Q6P PRN 02/17 1215 AC PO Ipratropium [place] 2.5 ML TID 02/19 2100 AC 02/22 INH 0824 Lorazepam 1 MG BID 02/17 2100 AC 02/22 PO 0845 Metoprolol Tartrate 25 MG BID 02/20 2100 AC 02/22 PO 0846 Omeprazole 40 MG DAILY AC 02/17 1535 AC 02/22 PO 0604 Oxycodone/ 1 TAB Q6P PRN 02/17 1215 AC Acetaminophen PO Prednisone 5 MG DAILY 02/18 0900 AC 02/22 PO 0845 Warfarin Sodium 2.5 MG COUMADIN 1700 02/21 1700 DC 02/21 PO 02/21 2359 1648 Results Last 48 Hrs of Labs/Mics: Laboratory Tests 02/22/18 0615: Anion Gap 13, Estimated GFR 43 L, BUN/Creatinine Ratio 21.5, PT 30.7 H, INR 2.79 H, CBC w Diff NO MAN DIFF REQ, RBC 3.16 L, MCV 84.1, MCH 27.3, MCHC 32.4 L, RDW 17.8 H, MPV 7.7, Gran % 64.3, Lymphocytes % 21.2, Monocytes % 9.6 H, Eosinophils % 4.1, Basophils % 0.8, Absolute Granulocytes 4.1, Absolute Lymphocytes 1.4, Absolute Monocytes 0.6, Absolute Eosinophils 0.3, Absolute Basophils 0.1 02/21/18 0640: Anion Gap 12, Estimated GFR 47 L, BUN/Creatinine Ratio 21.7, PT 33.0 H, INR 2.99 H, CBC w Diff NO MAN DIFF REQ, RBC 3.06 L, MCV 83.8, MCH 26.7 L, MCHC 31.9 L, RDW 18.3 H, MPV 7.7, Gran % 74.6, Lymphocytes % 13.1 L, Monocytes % 7.4, Eosinophils % 4.3, Basophils % 0.6, Absolute Granulocytes 6.5, Absolute Lymphocytes 1.1 L, Absolute Monocytes 0.7 H, Absolute Eosinophils 0.4, Absolute Basophils 0.1 Assessment/Plan Assessment/Plan 1. Acute on chronic HFpEF. 2. History of aortic stenosis, status post transcatheter valve replacement 3. 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 Paroxysmal atrial fibrillation 5. History of hypertension 6. History of pulmonary disease 7. History of sleep apnea 8. Normocytic anemia Plan: * Continue IV Lasix * Continue other cardiac medications * Check basic metabolic profile daily * Dose warfarin for INR 2-3 Continue telemetry? Yes
[2018-02-22 14:31] VITALS: BP 120/60
[2018-02-22 23:11] VITALS: BP 110/58
[2018-02-23 06:38] VITALS: BP 108/74
[2018-02-23 08:09] LABS: ABSOLUTE BASOPHIL COUNT 0.1 /CUMM (0.0-0.2); ABSOLUTE EOSINOPHIL COUNT 0.4 /CUMM (0.0-0.7); ABSOLUTE GRANULOCYTE CT 4.7 /CUMM (1.4-6.5); ABSOLUTE LYMPH COUNT 1.4 /CUMM (1.2-3.4); ABSOLUTE MONOCYTE COUNT 0.6 /CUMM (0.10-0.60); BASOPHIL % 0.8 % (0.0-2.0); EOSINOPHIL % 5.1 % (0-5); GRANULOCYTE % 65.9 % (42.2-75.2); HEMATOCRIT 28.5 % (37-47); MEAN CORPUSCULAR HGB 27.3 PG (27.0-31.0); MEAN CORPUSCULAR HGB CONC 32.1 G/DL (33.0-37.0); MEAN CORPUSCULAR VOLUME 84.9 FL (81.0-99.0); MEAN PLATELET VOLUME 7.6 FL (7.4-10.4); PLATELET COUNT 504 /CUMM (130-400); RBC DISTRIBUTION WIDTH 18.2 % (11.5-14.5); RED BLOOD CELL CT 3.35 /CUMM (4.20-5.40); WHITE BLOOD CELL COUNT 7.2 /CUMM (4.8-10.8)
[2018-02-23 08:20] LABS: PT 29.6 SEC (9.4-12.5)
--- NOTE | 2018-02-23 08:35 | Patient Discharge Instructions ---
Discharge Instructions General Discharge Information You were seen/treated for: 1. Heart failure 2. IPF You had these procedures: Diuresis Watch for these problems: 1. SOB 2. CP 3. Palpitation Special Instructions: 1. Please follow up with your reuse technician in one week 2. Please follow up with your receptionist airline lounge in one week 3. Please take your meds as prescribed 4. Please return to ED if your SOB worsens Diet Continue normal diet: No Recommended Diet: low salt Activity Full Activity/No Limits: No Activity Self Limited: Yes Acute Coronary Syndrome Inclusion Criteria At DC or during hospital stay patient has or had the following: ACS DIAGNOSIS No Discharge Core Measures Meds if any: Prescribed or Continued at Discharge Meds if any: NOT Prescribed or Continued at Discharge Congestive Heart Failure Inclusion Criteria At DC or during hospital stay patient has or had the following: CHF DIAGNOSIS No Discharge Core Measures Meds if any: Prescribed or Continued at Discharge Meds if any: NOT Prescribed or Continued at Discharge Cerebrovascular accident Inclusion Criteria At DC or during hospital stay patient has or had the following: CVA/TIA Diagnosis No Discharge Core Measures Meds if any: Prescribed or Continued at Discharge Meds if any: NOT Prescribed or Continued at Discharge Venous thromboembolism Inclusion Criteria VTE Diagnosis No VTE Type NONE VTE Confirmed by (Test) NONE Discharge Core Measures - Per Current guidelines, there needs to be overlap - treatment for the first 5 days of Warfarin therapy. - If discharged on Warfarin prior to 5 days of - overlap therapy, the patient will need to be - assessed for post discharge needs including - *Post discharge parental anticoagulation - *Warfarin and/or parental anticoagulation education - *Follow up date to check INR post discharge At least 5 days overlap therapy as Inpatient No Meds if any: Prescribed or Continued at Discharge Note: Overlap Therapy is Warfarin and Anticoagulant Meds if any: NOT Prescribed or Continued at Discharge
--- NOTE | 2018-02-23 08:45 | PN- Pulmonary ---
Subjective HPI/Critical Care Issues: Patient shortness of breath is resolved. Objective Current Medications: Current Medications Sig/Lico Start time Last Medication Dose Route Stop Time Status Admin Acetaminophen 650 MG Q6P PRN 02/17 121 AC PO Atorvastatin Calcium 10 MG QPM 02/17 2100 AC 02/22 PO 2300 Bupropion HCl 300 MG QAM 02/18 0900 AC 02/23 PO 0838 Dipyridamole/Aspirin 1 CAP BID 02/17 2100 AC 02/23 PO 0839 Escitalopram Oxalate 40 MG AT BEDTIME 02/17 2100 AC 02/22 PO 2301 Furosemide 40 MG 7:30 AM, & 4:30 PM 02/18 0730 AC 02/23 IV 0839 Hydroxychloroquine 200 MG BID 02/17 2100 AC 02/23 Sulfate PO 0838 Ibuprofen 600 MG Q6P PRN 02/17 1215 AC PO Ipratropium [place] 2.5 ML TID 02/19 2100 AC 02/23 INH 0747 Lorazepam 1 MG BID 02/17 2100 AC 02/23 PO 0839 Metoprolol Tartrate 25 MG BID 02/20 2100 AC 02/23 PO 0838 Omeprazole 40 MG DAILY AC 02/17 1535 AC 02/23 PO 0551 Oxycodone/ 1 TAB Q6P PRN 02/17 121 AC Acetaminophen PO Potassium Chloride 40 MEQ ONCE ONE 02/22 1100 DC 02/22 PO 02/22 1101 1106 Prednisone 5 MG DAILY 02/18 0900 AC 02/23 PO 0838 Warfarin Sodium 2.5 MG COUMADIN 1700 02/22 1700 DC 02/22 PO 02/22 2359 1728 Vital Signs & I&O Last 24 Hrs of Vitals and I&O: Vital Signs Date Time Temp Pulse Resp B/P B/P Pulse O2 O2 Flow FiO2 Mean Ox Delivery Rate 02/23 0800 94 Nasal 3.0L Cannula 02/23 0748 99 Nasal 3.0L Cannula 02/23 0638 97.6 71 21 108/74 95 Nasal Cannula 02/23 0000 97 Nasal 3.5L Cannula 02/22 2311 98.5 53 22 110/58 97 02/22 2305 74 120/76 02/22 2105 96 Nasal 3.0L Cannula 02/22 1600 94 Nasal 3.5L Cannula 02/22 1431 98.1 77 20 120/60 94 Nasal 3.0L Cannula 02/22 0846 75 102/68 Intake & Output 02/23 1600 02/23 0800 02/23 0000 Intake Total 220 600 Output Total 200 650 Balance 20 -50 Intake, Oral 220 600 Output, Urine 200 650 Patient 227 lb Weight Weight Bed scale Measurement Method Oxygen saturation 3 L 94% exam for chest shows clear lung verduzco are no wheezes or crackles cardiac exam shows regular S1 and S2 without murmurs Impression/Plan Impression/Plan Impression/Plan: 82-year-old with underlying lung disease admitted with volume overload improved with diuresis Recommendations: Continue outpatient diuresis. Taper FiO2 his saturations allow. Outpatient follow-up with Dr. Morel.
--- NOTE | 2018-02-23 13:38 | PN- Cardiology ---
Subjective Subjective: Sitting at the bedside with her . Respiratory status much improved. Anxious to go home. Objective Vital Signs and I&Os Vital Signs Date Time Temp Pulse Resp B/P B/P Pulse O2 O2 Flow FiO2 Mean Ox Delivery Rate 02/23 08 94 Nasal 3.0L Cannula 02/23 0748 99 Nasal 3.0L Cannula 02/23 0638 97.6 71 21 108/74 95 Nasal Cannula 02/23 0000 97 Nasal 3.5L Cannula 02/22 2311 98.5 53 22 110/58 97 02/22 2305 74 120/76 02/22 2105 96 Nasal 3.0L Cannula 02/22 1600 94 Nasal 3.5L Cannula 02/22 1431 98.1 77 20 120/60 94 Nasal 3.0L Cannula Intake & Output 02/23 0802/23 0000 02/22 1600 02/22 0802/22 0000 Intake Total 220 600 600 560 Output Total 200 650 700 400 700 Balance 20 -50 -100 -400 -140 Intake, Oral 220 600 600 560 Number 1 Bowel Movements Output, Urine 200 650 700 400 700 Patient 227 lb 222 lb 222 lb Weight Weight Bed scale Measurement Method Physical Exam: General Appearance: well developed/nourished, overweight white female, alert, awake, oriented Head: normal HEENT: Normal Neck: supple, JVP normal, carotid upstrokes normal bilaterally, no masses or thyromegaly Respiratory: chest non-tender, essentially clear Cardiovascular: regular rate/rhythm, normal S1, S2, 1-2/6 systolic murmur; 1/6 to 2/6 diastolic rumble of mitral stenosis Abdomen: normal bowel sounds, soft, non-tender Extremities: normal inspection, no edema Vascular: Pulses are 2+ and equal bilaterally Neurologic: Grossly normal/nonfocal Current Medications: Current Medications Sig/Lico Start time Last Medication Dose Route Stop Time Status Admin Acetaminophen 650 MG Q6P PRN 02/17 1215 AC PO Atorvastatin Calcium 10 MG QPM 02/17 2100 AC 02/22 PO 230 Bupropion HCl 300 MG QAM 02/18 09 AC 02/23 PO 0838 Dipyridamole/Aspirin 1 CAP BID 02/17 2100 AC 02/23 PO 0839 Escitalopram Oxalate 40 MG AT BEDTIME 02/17 2100 AC 02/22 PO 230 Furosemide 40 MG 7:30 AM, & 4:30 PM 02/18 0730 AC 02/23 IV 0839 Hydroxychloroquine 200 MG BID 02/17 2100 AC 02/23 Sulfate PO 0838 Ibuprofen 600 MG Q6P PRN 02/17 1215 AC PO Ipratropium [place] 2.5 ML TID 02/19 2100 AC 02/23 INH 1330 Lorazepam 1 MG BID 02/17 2100 AC 02/23 PO 0839 Metoprolol Tartrate 25 MG BID 02/20 2100 AC 02/23 PO 0838 Omeprazole 40 MG DAILY AC 02/17 1535 AC 02/23 PO 0551 Oxycodone/ 1 TAB Q6P PRN 02/17 1215 AC Acetaminophen PO Prednisone 5 MG DAILY 02/18 0900 AC 02/23 PO 0838 Warfarin Sodium 2.5 MG COUMADIN 02/23 1700 AC PO 02/23 1701 Warfarin Sodium 2.5 MG COUMADIN 02/22 1700 DC 02/22 PO 02/22 2359 1728 Results Last 48 Hrs of Labs/Mics: Laboratory Tests 02/23/18 0721: Anion Gap 13, Estimated GFR 43 L, BUN/Creatinine Ratio 22.3, PT 29.6 H, INR 2.69 H, CBC w Diff NO MAN DIFF REQ, RBC 3.35 L, MCV 84.9, MCH 27.3, MCHC 32.1 L, RDW 18.2 H, MPV 7.6, Gran % 65.9, Lymphocytes % 20.2 L, Monocytes % 8.0, Eosinophils % 5.1 H, Basophils % 0.8, Absolute Granulocytes 4.7, Absolute Lymphocytes 1.4, Absolute Monocytes 0.6, Absolute Eosinophils 0.4, Absolute Basophils 0.1 02/22/18 0615: Anion Gap 13, Estimated GFR 43 L, BUN/Creatinine Ratio 21.5, PT 30.7 H, INR 2.79 H, CBC w Diff NO MAN DIFF REQ, RBC 3.16 L, MCV 84.1, MCH 27.3, MCHC 32.4 L, RDW 17.8 H, MPV 7.7, Gran % 64.3, Lymphocytes % 21.2, Monocytes % 9.6 H, Eosinophils % 4.1, Basophils % 0.8, Absolute Granulocytes 4.1, Absolute Lymphocytes 1.4, Absolute Monocytes 0.6, Absolute Eosinophils 0.3, Absolute Basophils 0.1 Assessment/Plan Assessment/Plan Assessment: 1. Acute on chronic HFpEF. 2. History of aortic stenosis, status post transcatheter valve replacement 3. 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 Paroxysmal atrial fibrillation 5. History of hypertension 6. History of pulmonary disease 7. History of sleep apnea 8. Normocytic anemia Plan: * Transition to home oral Lasix dose * Continue other cardiac medications * Check basic metabolic profile daily * Dose warfarin for INR 2-3; discharge planning; follow-up with me in the office in 2 weeks Continue telemetry? No
--- NOTE | 2018-02-23 13:55 | PN- Housestaff ---
Vince CROOKS,Goran 02/23/18 1354: Subjective Subjective: saw pt at bedside. on 3l O2. Back to baseline. Plan for D/C today. Review of Systems Constitutional: Denies: chills, fever, weakness. EENTM: Reports: no symptoms. Cardiovascular: Denies: chest pain, peripheral edema. Respiratory: Reports: no symptoms. Denies: short of breath, wheezing. Gastrointestinal: Reports: no symptoms. Genitourinary: Reports: no symptoms. Musculoskeletal: Reports: no symptoms. Skin: Reports: no symptoms. Objective Last 24 Hrs of Vital Signs/I&O Vital Signs Date Time Temp Pulse Resp B/P B/P Pulse O2 O2 Flow FiO2 Mean Ox Delivery Rate 02/23 0800 94 Nasal 3.0L Cannula 02/23 0748 99 Nasal 3.0L Cannula 02/23 0638 97.6 71 21 108/74 95 Nasal Cannula 02/23 0000 97 Nasal 3.5L Cannula 02/22 2311 98.5 53 22 110/58 97 02/22 2305 74 120/76 02/22 2105 96 Nasal 3.0L Cannula Intake & Output 02/23 1600 02/23 0800 02/23 0000 Intake Total 800 220 600 Output Total 850 200 650 Balance -50 20 -50 Intake, Oral 800 220 600 Output, Urine 850 200 650 Patient 103.022 kg Weight Weight Bed scale Measurement Method Physical Exam General Appearance: Alert, Oriented X3, Cooperative, No Acute Distress Skin: No Significant Lesion HEENT: Atraumatic, PERRLA, EOMI Neck: Supple Cardiovascular: Regular Rate, Normal S1, Normal S2 Lungs: fine crackles throughout.Improved form yesterday Abdomen: Soft, No Hepatospenomegaly Neurological: Strength at 5/5 X4 Ext Extremities: No Edema Current Medications: Current Medications Sig/Lico Start time Last Medication Dose Route Stop Time Status Admin Acetaminophen 650 MG Q6P PRN 02/17 1215 DCD PO Atorvastatin Calcium 10 MG QPM 02/17 2100 DCD 0515 PO 2300 Bupropion HCl 300 MG QAM 02/18 0900 DCD 02/23 PO 0838 Dipyridamole/Aspirin 1 CAP BID 02/17 2100 DCD 02/23 PO 0839 Escitalopram Oxalate 40 MG AT BEDTIME 02/17 2100 DCD 0515 PO 2301 Furosemide 40 MG 7:30 AM, & 4:30 PM 02/18 0730 DCD 02/23 IV 0839 Hydroxychloroquine 200 MG BID 02/17 2100 DCD 02/23 Sulfate PO 0838 Ibuprofen 600 MG Q6P PRN 02/17 1215 DCD PO Ipratropium [place] 2.5 ML TID 02/19 2100 DCD 02/23 INH 1330 Lorazepam 1 MG BID 02/17 2100 DCD 02/23 PO 0839 Metoprolol Tartrate 25 MG BID 02/20 2100 DCD 02/23 PO 0838 Omeprazole 40 MG DAILY AC 02/17 1535 DCD 02/23 PO 0551 Oxycodone/ 1 TAB Q6P PRN 02/17 1215 DCD Acetaminophen PO Prednisone 5 MG DAILY 02/18 0900 DCD 02/23 PO 0838 Warfarin Sodium 2.5 MG COUMADIN 1700 02/23 1700 DCD PO 02/23 1701 Warfarin Sodium 2.5 MG COUMADIN 1700 02/22 1700 DC 02/22 PO 02/22 2359 1728 Last 24 Hrs of Lab/Michael Results Last 24 Hrs of Labs/Mics: Laboratory Tests 02/23/18 0721: Anion Gap 13, Estimated GFR 43 L, BUN/Creatinine Ratio 22.3, PT 29.6 H, INR 2.69 H, CBC w Diff NO MAN DIFF REQ, RBC 3.35 L, MCV 84.9, MCH 27.3, MCHC 32.1 L, RDW 18.2 H, MPV 7.6, Gran % 65.9, Lymphocytes % 20.2 L, Monocytes % 8.0, Eosinophils % 5.1 H, Basophils % 0.8, Absolute Granulocytes 4.7, Absolute Lymphocytes 1.4, Absolute Monocytes 0.6, Absolute Eosinophils 0.4, Absolute Basophils 0.1 Assessment/Plan Assessment: This is a 51-year-old lady with a PMH of heart failure with preserved ejection fraction,on 3 L O2 at home, ASA on CPAP, fibromyalgia, sero-negative rheumatoid arthritis on chronic prednisone and hydroxychloroquine, recurrent calcium oxalate stones s/p lithotripsy, paroxysmal atrial fibrillation on Coumadin, CVA in 2011 secondary to embolization, hypertension, aortic stenosis status post TAVR at [facility] in 2016, with hx of 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 Given elevated BNP and x-ray with significant edema, we are treating pt for valvular heart failure. Notably, pt has been aggressively diuresed with some imporvement but not nearly as expected. Her Echo does not indicate particularly stenotic Mitral valve. Likely,her hx of ILD is playing some role in her hypoxia in addition to her heart failure. PLAN: Acute hypoxic respiratory failure: No evidence of new CAD, BCX negative. Strep swab/Legionella swab negative. She does have hx of CHILLING [employer] O[employer]ATOR 2/2 amiodarone some of the fine crackles auscultated could be secondary to ILD vs edema. Her diuresis has been exceptional with average over 1 L of diuresis each day in hospital. * TRC/O2 as necessary * Holding off abx * I/O * IV lasix 40 BID--> Switch to PO Lasix tody and D.C * Appreciate cardio consult * Appreciate pulm consult Afib with elevated INR * Will dose Coumadin accordingly w/ goal 2-3. Heart failure with preserved ejection fraction: BNP 1230 initially. Possible outpt cardiac catheterization. * Appreciate Cardio consult CVA: * Con't ASA * Con't Aggrenox Hypertension: * Con't monitor Anxiety and depression: * Con't Bupropion * Con't Lexapro RA and fibromyalgia: * Con't Hydroxychloroquine * Con't Prednisone 5mg Anemia: Con't monitor. * Monitor CBC Problem List: 1. Shortness of breath Pain Ratin Pain Location: NONE Pain Goal: Remain pain free Pain Plan: NONE Tomorrow's Labs & Rationales: CBC ELICIAP Gerald Simms 02/24/18 1442: Attending MD Review Statement Attending Statement Attending MD Statement: examined this patient, discuss w/resident/PA/IP COUNSEL, agreed w/resident/PA/IP COUNSEL, discussed with family, reviewed EMR data (avail), discussed with nursing, discussed with case mgmt, reviewed images, amended to note Attending Assessment/Plan: Patient on oral lasix and tolerating well. She is back to her baseline 3l oxygen. She needs to follow up outpatient Cardiology and pulmonary. She is medically stable for discharge.
--- NOTE | 2018-02-23 16:10 | Discharge Summary ---
Hospital Course Allergies: Coded Allergies: Sulfa (Sulfonamide Antibiotics) (N/V 01/04/17) Discharge Instructions Medications at Discharge Discharge Medications: Continue taking these medications: Dipyridamole W/ Aspirin (Aggrenox 25 MG-200 MG Capsule) 25 MG-200 MG CPMP.12HR 1 Capsule ORAL TWICE DAILY Comments: Last Taken: 02/23/18 Time: 0830 AM Metoprolol Succinate (Metoprolol Succinate) 25 MG TAB 1 Tablet ORAL Every Morning Qty = 90 Atorvastatin Calcium (Atorvastatin Calcium) 10 MG TABLET 1 Tablet ORAL Every night Qty = 30 Prednisone (Prednisone) 5 MG TABLET 1 Tablet ORAL DAILY Qty = 60 Comments: Last Taken: 02/23/18 Time: 0830 AM Hydroxychloroquine Sulfate (Hydroxychloroquine Sulfate) 200 MG TABLET 1 Tablet ORAL TWICE DAILY Qty = 60 Comments: Last Taken: 02/23/18 Time: 0830 AM Pregabalin (Lyrica) 150 MG CAPSULE 1 Capsule ORAL TWICE DAILY Bupropion HCl (Bupropion XL) 300 MG TAB.ER.24H 1 Tablet ORAL Every Morning Qty = 30 Comments: Last Taken: 02/23/18 Time: 0830 AM Escitalopram Oxalate (Lexapro) 20 MG TABLET 2 Tablet ORAL Every night LORazepam (Ativan) 1 MG TAB 1 Tablet ORAL TWICE DAILY Comments: Last Taken: 02/23/18 Time: 0830 AM Aspirin (Aspirin*) 81 MG TAB.CHEW 1 Tablet ORAL DAILY Warfarin Sodium (Coumadin) 5 MG TABLET 1 Tablet ORAL WEDNESDAY, WEDNESDAY AND WEDNESDAY Warfarin Sodium (Coumadin) 2.5 MG TABLET 1 Tablet ORAL SuTuThSa Comments: Last Taken:02/22/18 Time: 530 PM Furosemide (Lasix) 40 MG TABLET 1 Tablet ORAL DAILY Ibuprofen/Famotidine (Duexis 800-26.6 MG Tablet) 800 MG-26.6 MG TABLET 1 Tablet ORAL THREE TIMES DAILY as needed for RA Qty = 90 Cyclobenzaprine HCl (Cyclobenzaprine HCl) 10 MG TABLET 1 Tablet ORAL TWICE DAILY as needed for MUSCLE SPASMS Qty = 40 Albuterol Sulfate (Proair Hfa) 90 MCG HFA.AER.AD 2 Puff Inhale through mouth EVERY 4-6 HOURS NEEDED as needed for SHORTNESS OF BREATH Qty = 9 Lysine (L-Lysine) 500 MG TABLET 1 Tablet ORAL TWICE DAILY Cholecalciferol (Vitamin D3) (Vitamin D3) 2,000 UNIT TABLET 3 Tablet ORAL DAILY Cyanocobalamin (Vitamin B-12) 1,000 MCG TABLET 1 Tablet ORAL DAILY
== END 2018-02-23 14:25 | disposition home health service (06) | DRG 194 ==
LOC: ERH 06:55 → 1NO 09:49 → ERHI 09:49 → ENRESERV 10:42 → ENTRNSPT 11:19 → EDTRNSPT 11:28 → EDTRNSPTSTS 11:28 → 1NO 11:42 → CMPTRNSPT 11:47 → 1NO 02-18 20:16 → ENPENDDIS 02-23 13:50 → 1NO 02-23 14:25
PROVIDERS: Emergency Medicine; Internal Medicine; Student in an Organized Health Care Education/Training Program
DX: I13.0 Hypertensive heart and chronic kidney disease with heart failure and stage 1 through stage 4 chronic kidney disease, or unspecified chronic kidney disease (principal); I50.33 Acute on chronic diastolic (congestive) heart failure; J96.01 Acute respiratory failure with hypoxia; I05.0 Rheumatic mitral stenosis; Z79.01 Long term (current) use of anticoagulants; Z99.81 Dependence on supplemental oxygen; N18.2 Chronic kidney disease, stage 2 (mild); Z95.2 Presence of prosthetic heart valve; M06.9 Rheumatoid arthritis, unspecified; I48.0 Paroxysmal atrial fibrillation; J44.9 Chronic obstructive pulmonary disease, unspecified; I25.2 Old myocardial infarction; E78.5 Hyperlipidemia, unspecified; M79.7 Fibromyalgia; G47.33 Obstructive sleep apnea (adult) (pediatric); F41.9 Anxiety disorder, unspecified; F32.9 Major depressive disorder, single episode, unspecified; D64.9 Anemia, unspecified; Z86.73 Personal history of transient ischemic attack (TIA), and cerebral infarction without residual deficits; Z79.52 Long term (current) use of systemic steroids; Z88.2 Allergy status to sulfonamides; Z87.891 Personal history of nicotine dependence
CPT/HCPCS: 1NSP; 36415; 36592; 71045; 81003; 82436; 87040; 87070; 87086; 87449; 87450; 93005; 93010; 93306; 96374; 99291; J1940; J3490; J7512